=== PATIENT | female | born 1950 | race Caucasian/White ===

== ENCOUNTER 2019-11-13 22:07 | Emergency (ER) | payer MEDICARE, MEDICAID, SELFPAY ==
[2019-11-13 22:14] VITALS: BP 181/95; PULSE 87; RESP 16; TEMP 36.9; O2SAT 96; BMI 28.3
--- NOTE | 2019-11-13 22:30 | CTR_ITS ---
PROCEDURE INFORMATION: Exam: CT Head Without Contrast Exam date and time: 11/13/2019 10:37 PM Age: 69 years old Clinical indication: Pain; Headache not specified; Patient HX: ROSAS x 3 days HX of stroke and avm TECHNIQUE: Imaging protocol: Computed tomography of the head without contrast. Radiation optimization: All CT scans at this facility use at least one of these dose optimization techniques: automated exposure control; mA and/or kV adjustment per patient size (includes targeted exams where dose is matched to clinical indication); or iterative reconstruction. COMPARISON: No relevant prior studies available. RADIATION DOSE METRICS: Total DLP (mGy-cm): 705 FINDINGS: Brain: Mild cortical volume loss of the right cerebral hemisphere. Mild hypodensities in supratentorial periventricular subcortical white matter. Old encephalomalacia with coarse dystrophic parenchymal calcifications involving the left temporal, occipital, and parietal lobes as well as the left basal ganglia. Old encephalomalacia in the left thalamus. No intracranial hemorrhage. Ventricles: Normal. No ventriculomegaly. Bones/joints: Unremarkable. No acute fracture. Sinuses: Visualized sinuses are unremarkable. No fluid levels. Mastoid air cells: Visualized mastoid air cells are well aerated. Vasculature: No hyperdense artery. Soft tissues: Unremarkable. CT/CT head wo con* [id number] IMPRESSION: 1. No acute intracranial abnormality identified. 2. Old encephalomalacia with dense dystrophic calcifications involving the left cerebrum as described. 3. Mild microangiopathy. Radiation Dose CTDIVOL = (mGy): DLP = 705 (mGy-cm)
[2019-11-13 22:55] LABS: Basophils # 0.1 10^3/uL (0.0-0.1); Basophils % 0.6 %; Eosinophils # 0.1 10^3/uL (0.0-0.8); Eosinophils % 1.5 %; Hematocrit 37.8 % (37.0-47.0); Hemoglobin 12.2 g/dL (11.5-15.3); Lymphocytes # 1.2 10^3/uL (0.8-4.8); Lymphocytes % 13.9 %; Mean Corpuscular HGB Conc 32.3 g/dL (30.0-36.0); Mean Corpuscular Hemoglobin 31.3 pg (28.0-34.0); Mean Corpuscular Volume 96.9 fL (81-99); Mean Platelet Volume 9.8 fL (7.4-10.4); Monocytes # 0.5 10^3/uL (0.2-0.9); Monocytes % 5.5 %; Neutrophils # 6.9 10^3/uL (1.8-7.7); Neutrophils % 77.9 %; Nucleated Red Blood Cells % 0 %; Platelet Count 204 10^3/cmm (130-400); Red Cell Distribution Width 13.1 % (12.1-15.1); White Blood Count 8.8 10^3/uL (4.0-10.0)
[2019-11-13] MEDS: dexamethasone 4 mg/mL INJ 8 MG IVP (22:57)
[2019-11-13 22:58] VITALS: RESP 16
[2019-11-13] MEDS: hyDRALAzine 20 mg/mL INJ 1 mL 10 MG IVP (22:58)
[2019-11-13] MEDS: fentaNYL 50 mcg/mL INJ 2mL IVP (22:58)
[2019-11-13] MEDS: ondansetron 2 mg/ML SDV 2 mL 4 MG IVP (22:59)
[2019-11-13] MEDS: ketorolac 30 mg/mL INJ IVP (22:59)
--- NOTE | 2019-11-13 23:00 | ED_ITS ---
HPI - Headache General: Chief Complaint: Headache Stated Complaint: headache Time Seen by Provider: 11/13/19 22:11 History of Present Illness: HPI Narrative: 69-year-old lady presents with a significant headache for the past 3 days. She stays in a long-term related to a stroke she had back in 2016. 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 She states her headache is a global headache. It is waxed and waned over the last 3 days. No definite change in vision, although she notes she has glaucoma. Her blood pressure has been up and down, mainly related to her headache symptoms as well. She has had headaches on and off since her stroke, but not this significant. MD elicited complaint: headache Onset (ago): day(s) Onset description: suddenly Location: other (Global, but more on the left) Quality & Timing: aching and throbbing Exacerbating factors: none Relieving factors: nothing Context: occurred at rest Associated symptoms: Reports fever(s) (She says low-grade temps the last couple of days) and nausea; Deny chest pain, eye pain, photophobia, rash, seizures, sound sensitivity or vomiting Review of Systems Const: Reports: fever(s) (She says low-grade temps the last couple of days) Eyes: Reports: blurry vision; Denies: change in vision ENMT: Denies: swelling of lips/tongue, bleeding gums, dental pain, change in hearing, epistaxis, post nasal drip or sinus pain Card: Denies: chest pain, palpitations or irregular heart rhythm Resp: Denies: dyspnea, productive cough, non-productive cough or wheezing GI: Reports: nausea; Denies: vomiting : Denies: dysuria or hematuria Musc: Denies: neck pain, back pain, joint redness or joint warmth Skin/Breast: Denies: rash, pruritus or erythema Neuro: Reports: headache(s); Denies: dizziness or vertigo Psych: Denies: anxiety PFSH ED PFSH: Social History Smoking and tobacco status: former smoker Physical Exam Const: GENERAL APPEARANCE: well developed ORIENTATION/CONSCIOUSNESS: Yes oriented to person, Yes oriented to place and Yes oriented to time HENMT: COMMON NORMALS: external ears normal and Normal external nose present HEAD & SCALP: other (There is tenderness over the left temporal region, with mild swelling apparent. Pulses are palpable of the temporal arteries ) FACE & SINUS: normal facial exam NOSE: Normal external nose present and No nasal discharge present EXTERNAL EAR: Yes external ears normal MOUTH: tongue normal THROAT: posterior oropharynx normal; no peritonsillar mass Eye: COMMON NORMALS: Equal, round and reactive pupils present and EOMs intact bilaterally EYELID: eyelids normal CONJUNCTIVA: Yes conjunctival abnormal positive left (Mild injection) PUPIL: Yes Equal, round and reactive pupils present DIRECT OPHTHALMOSCOPY: No photophobia Neck/C-Spine: COMMON NORMALS: full ROM GENERAL: No tracheal deviation CERVICAL SPINE: Yes normal cervical lordosis and No Cervical spine tenderness Chest: COMMONS NORMALS: normal inspection of the chest CHEST: No tenderness Resp: COMMON NORMALS: clear to auscultation bilaterally EFFORT & INSPECTION: No tachypneic, No respiratory distress, No retractions, No uses accessory muscles and No tracheal deviation AUSCULTATION: clear to auscultation bilaterally, no rhonchi, no wheezes and lung sounds not diminished Cardio: COMMON NORMALS: regular rate and regular rhythm RATE: regular rate RHYTHM: regular rhythm HEART SOUNDS: no murmurs PERIPHERAL PULSES: radial pulses present GI: INSPECTION: No abdominal distension AUSCULTATION: No Hyperactive bowel sounds present and No Hypoactive bowel sounds present PALPATION: No Guarding due to palpation present (GI) and No Rigid due to palpation PERCUSSION: no dullness to percussion and no tympanic to percussion Neuro: SENSORIUM/ORIENTATION: Yes oriented to person, Yes oriented to place and Yes oriented to time Psych: COMMON NORMALS: mental status grossly normal Skin: COMMON NORMALS: no rashes or lesions noted GENERAL SKIN EXAM: no rashes or lesions noted Course Vital Signs: Vital signs: Vital Signs Temperature 98.4 F 11/13/19 22:14 Pulse Rate 91 11/14/19 02:20 Respiratory Rate 16 11/14/19 02:20 Blood Pressure 177/75 11/14/19 02:20 Pulse Oximetry 92 11/14/19 02:20 MDM - Headache MDM Narrative: Medical decision making narrative: 69-year-old lady with a history of a headache. Headache has not changed in 3 days but was sudden onset. Her head CT is negative, showing only changes related to her old stroke. She is significantly hypertensive here requiring a couple of doses of hydralazine, and 1 dose of metoprolol. She is only on lisinopril in the long-term. Her headache may be related to the hypertension. She was screened for temporal arteritis, but her sed rate and CRP are essentially negative. Her urinalysis is equivocal. Will allow her back to the long-term with resolution of her headache at this point. Lab Data: Labs: Lab Results 11/13/19 11/13/19 11/13/19 Range/Units 22:50 22:50 22:50 WBC 8.8 (4.0-10.0) 10^3/ uL RBC 3.90 L (4.1-5.3) 10^6/u L Hgb 12.2 (11.5-15.3) g/dL Hct 37.8 (37.0-47.0) % MCV 96.9 (81-99) fL MCH 31.3 (28.0-34.0) pg MCHC 32.3 (30.0-36.0) g/dL RDW 13.1 (12.1-15.1) % Plt Count 204 (130-400) 10^3/c mm MPV 9.8 (7.4-10.4) fL Neut % (Auto) 77.9 % Lymph % (Auto) 13.9 % Irwin % (Auto) 5.5 % Eos % (Auto) 1.5 % Baso % (Auto) 0.6 % Neut # (Auto) 6.9 (1.8-7.7) 10^3/u L Lymph # (Auto) 1.2 (0.8-4.8) 10^3/u L Irwin # (Auto) 0.5 (0.2-0.9) 10^3/u L Eos # (Auto) 0.1 (0.0-0.8) 10^3/u L Baso # (Auto) 0.1 (0.0-0.1) 10^3/u L Nucleated RBC % (a uto) 0 % Nucleated RBCs # 0.0 /100WBC ESR 25 H (0-15) mm/hr Sodium 144 (136-145) mmol/L Potassium 4.5 (3.5-5.1) mmol/L Chloride 104 (98-107) mmol/L Carbon Dioxide 27 (22-29) mmol/L Anion Gap 17.5 (5-19) BUN 18 (8-23) mg/dL Creatinine 1.2 H (0.5-0.9) mg/dL GFR Calculation 44.8 L (90-130) mL/min Glucose 163 H (65-115) mg/dL Calculated Osmolal ity 298 H (285-295) mOsm/k g Calcium 9.9 (8.5-10.5) mg/dL Total Bilirubin 0.6 (0.15-1.2) mg/dL AST 19 (0-32) U/L ALT 32 (0-33) U/L Alkaline Phosphata se 80 (35-105) IU/L C-Reactive Protein 5.2 H (0.0-4.9) mg/L Total Protein 7.3 (6.6-8.7) g/dL Albumin 4.4 (3.5-5.2) g/dL Globulin 2.9 (1.3-4.6) g/dL Urine Color (Yellow) Urine Appearance (CLEAR) Urine pH (5-7) Ur Specific Gravit y (1.005-1.030) Urine Protein (Negative) Urine Glucose (UA) (Normal) Urine Ketones (Negative) Urine Blood (Negative) Urine Nitrate (Negative) Urine Bilirubin (NEGATIVE) Urine Urobilinogen (Negative) mg/dL Ur Leukocyte Antoinette ase (Negative) Urine RBC (0-2) /hpf Urine WBC (0-5) /hpf Ur Squamous Epith Cells (0-5) Urine Bacteria (NONE) Urine Mucus 11/12/ Range/Units 23:52 WBC (4.0-10.0) 10^3/ uL RBC (4.1-5.3) 10^6/u L Hgb (11.5-15.3) g/dL Hct (37.0-47.0) % MCV (81-99) fL MCH (28.0-34.0) pg MCHC (30.0-36.0) g/dL RDW (12.1-15.1) % Plt Count (130-400) 10^3/c mm MPV (7.4-10.4) fL Neut % (Auto) % Lymph % (Auto) % Irwin % (Auto) % Eos % (Auto) % Baso % (Auto) % Neut # (Auto) (1.8-7.7) 10^3/u L Lymph # (Auto) (0.8-4.8) 10^3/u L Irwin # (Auto) (0.2-0.9) 10^3/u L Eos # (Auto) (0.0-0.8) 10^3/u L Baso # (Auto) (0.0-0.1) 10^3/u L Nucleated RBC % (a uto) % Nucleated RBCs # /100WBC ESR (0-15) mm/hr Sodium (136-145) mmol/L Potassium (3.5-5.1) mmol/L Chloride (98-107) mmol/L Carbon Dioxide (22-29) mmol/L Anion Gap (5-19) BUN (8-23) mg/dL Creatinine (0.5-0.9) mg/dL GFR Calculation (90-130) mL/min Glucose (65-115) mg/dL Calculated Osmolal ity (285-295) mOsm/k g Calcium (8.5-10.5) mg/dL Total Bilirubin (0.15-1.2) mg/dL AST (0-32) U/L ALT (0-33) U/L Alkaline Phosphata se (35-105) IU/L C-Reactive Protein (0.0-4.9) mg/L Total Protein (6.6-8.7) g/dL Albumin (3.5-5.2) g/dL Globulin (1.3-4.6) g/dL Urine Color Yellow (Yellow) Urine Appearance Sl hazy (CLEAR) Urine pH 5 (5-7) Ur Specific Gravit y 1.020 (1.005-1.030) Urine Protein Neg (Negative) Urine Glucose (UA) Norm (Normal) Urine Ketones Negative (Negative) Urine Blood Neg (Negative) Urine Nitrate Positive H (Negative) Urine Bilirubin Neg (NEGATIVE) Urine Urobilinogen Norm (Negative) mg/dL Ur Leukocyte Antoinette ase Trace H (Negative) Urine RBC 0-4 H (0-2) /hpf Urine WBC 10-15 H (0-5) /hpf Ur Squamous Epith Cells 5-10 H (0-5) Urine Bacteria 3+ H (NONE) Urine Mucus Trace Discharge Plan Discharge Patient Disposition: Xfer [facility] Clinical Impression: Headache Qualifiers: Headache type: unspecified Headache chronicity pattern: acute headache Intractability: intractable Qualified Code(s): R51 - Headache Hypertension Qualifiers: Hypertension type: essential hypertension Qualified Code(s): I10 - Essential (primary) hypertension Condition: Stable Prescriptions: New metoprolol tartrate 25 mg tablet 25 mg PO Q12H Qty: 60 RF: 0 Discharge Orders: Discharge Order (Routine); Ordered 11/14/19 Ordered By: Iker Theodore Referrals: Bernabe Cuellar DO [Primary Care Provider] - 4-7 days Discharge Diet: Usual diet Discharge Activity: Increase activity as tolerated Patient Instructions: Acute Headache (ED), Hypertension (ED) Activity Restrictions/Additional Instructions: Take blood pressure twice daily for the next 5 days. Medication as directed. Hold metoprolol for blood pressure less than 120/70, heart rate less than 60. Report blood pressure numbers to your physician. Return for mental status changes, worsening headache despite treatment, change in vision, other con cerning symptoms. 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
[2019-11-13 23:12] LABS: Alanine Aminotransferase 32 U/L (0-33); Albumin Level 4.4 g/dL (3.5-5.2); Alkaline Phosphatase 80 IU/L (35-105); Anion Gap 17.5 (5-19); Aspartate Amino Transferase 19 U/L (0-32); Blood Urea Nitrogen 18 mg/dL (8-23); C Reactive Protein 5.2 mg/L (0.0-4.9); Calcium 9.9 mg/dL (8.5-10.5); Carbon Dioxide 27 mmol/L (22-29); Chloride 104 mmol/L (98-107); Globulin 2.9 g/dL (1.3-4.6); Glomerular Filtration Rate 44.8 mL/min (90-130); Glucose 163 mg/dL (65-115); Osmolality Calculated 298 mOsm/kg (285-295); Potassium 4.5 mmol/L (3.5-5.1); Sodium 144 mmol/L (136-145); Total Bilirubin 0.6 mg/dL (0.15-1.2); Total Protein 7.3 g/dL (6.6-8.7)
[2019-11-13 23:18] VITALS: BP 156/96; PULSE 98; RESP 16; O2SAT 97
[2019-11-13 23:33] LABS: Erythrocyte Sedimentation Rate 25 mm/hr (0-15)
[2019-11-13 23:54] VITALS: BP 172/76; RESP 16; O2SAT 96
[2019-11-14] VITALS (10 sets, daily range): BP systolic 116–181; BP diastolic 56–85; PULSE 91–106; RESP 14–17; O2SAT 91–96
[2019-11-14 00:24] LABS: Add Urine Microscopic? YES; Bilirubin Urine Neg (NEGATIVE); Blood Urine Neg (Negative); Glucose Urine UA Norm (Normal); Ketones Urine Negative (Negative); Leukocyte Esterase Urine Trace (Negative); Nitrate Urine Positive (Negative); Protein Urine Neg (Negative); Urine Appearance SL Hazy (CLEAR); Urine Color Yellow (Yellow); Urobilinogen Urine Norm (Negative); pH Urine 5 (5-7)
[2019-11-14 00:25] LABS: Bacteria Urine 3+; RBC Urine 0-4 /hpf (0-2)
[2019-11-14 00:26] LABS: Add Urine Culture? Yes; Mucus Urine TRACE
[2019-11-14] MEDS: hyDRALAzine 20 mg/mL INJ 1 mL 10 MG IVP (01:02)
--- NOTE | 2019-11-14 01:27 | PC.NURSE ---
patient helped onto bedpan by nurse assist 2x.
[2019-11-14] MEDS: metoprolol tartrate 1 mg/1 mL SDV 5 mL 5 MG IV (01:42)
[2019-11-14] MEDS: amlodipine 5 mg Tablet 10 MG PO (01:56)
--- NOTE | 2019-11-14 02:19 | PC.NURSE ---
patient reference number for [facility], [place] [id number]
--- NOTE | 2019-11-14 08:02 | PC.NURSE ---
debra called states they will start looking for transportation now and call with ETA
== END 2019-11-14 09:10 | disposition skilled nursing facility (03) ==
PROVIDERS: Emergency Provider Emergency Medicine; PCP Internal Medicine
DX: R51 Headache (principal); I10 Essential (primary) hypertension; Z87.891 Personal history of nicotine dependence
CPT/HCPCS: 12345; 70450; 80053; 81001; 85025; 85651; 86140; 87077; 87086; 87186; 96374; 96375; 96376; 99284; J0360; J1100; J1885; J2405; J3010; J3490

== ENCOUNTER 2019-12-08 16:34 | Observation (INO) | payer MEDICARE, MEDICAID, SELFPAY ==
[2019-12-08] VITALS (8 sets, daily range): BP systolic 146–169; BP diastolic 60–88; PULSE 83–92; RESP 16–25; TEMP 36.8; O2SAT 93–99; BMI 28.3
--- NOTE | 2019-12-08 16:45 | XRR_ITS ---
PROCEDURE INFORMATION: Exam: XR Right Hip with Pelvis when Performed Exam date and time: 12/08/2019 4:46 PM Age: 69 years old Clinical indication: Injury or trauma and condition or disease; Fall; Initial encounter; Blunt trauma (contusions or hematomas); Right; Hip; Other: Fracture; Additional info: Fall and hip FX TECHNIQUE: Imaging protocol: XR Right hip with pelvis when performed. Views: 1 view. COMPARISON: CR Hip 2-3v RIGHT wwo Pelv* [id number] 10/27/2018 8:43 AM FINDINGS: Bones/joints: The bones are intact and in normal alignment. Soft tissues: Unremarkable. Gastrointestinal tract: Gas and stool distended colon. XR/XR hip RT 2-3V wo/w pel* [id number] IMPRESSION: No fracture identified.
--- NOTE | 2019-12-08 17:17 | PC.NURSE ---
EKG done at 1650 and shown to ER doctor
--- NOTE | 2019-12-08 17:34 | CTR_ITS ---
PROCEDURE INFORMATION: Exam: CT Right Lower Extremity Without Contrast, Hip Exam date and time: 12/08/2019 5:47 PM Age: 69 years old Clinical indication: Injury or trauma; Fall; Initial encounter; Blunt trauma; Hip; Right; Additional info: Fall -- FX reported TECHNIQUE: Imaging protocol: CT of the Right lower extremity without contrast was performed. Exam focused on the hip. Radiation optimization: All CT scans at this facility use at least one of these dose optimization techniques: automated exposure control; mA and/or kV adjustment per patient size (includes targeted exams where dose is matched to clinical indication); or iterative reconstruction. COMPARISON: CR XR hip RT 2-3V wo/w pel* [id number] 12/08/2019 5:00 PM RADIATION DOSE METRICS: Total DLP (mGy-cm): 1649.79 FINDINGS: Bones/joints: Small right hip effusion. The bones are intact and in normal alignment. No fracture identified. Soft tissues: Normal. CT/CT hip RT wo con* [id number] IMPRESSION: 1. No fracture identified. 2. Small right hip effusion. Radiation Dose CTDIVOL = (mGy): DLP = 1649.79 (mGy-cm)
--- NOTE | 2019-12-08 17:43 | ED_ITS ---
Documented by User: Jamaal Verduzco DO 12/08/19 17:44 HPI - Extremity Problem General: Chief complaint: Extremity Injury, Lower Stated complaint: HIP FRACTURE Time Seen by Provider: 12/08/19 16:36 History of Present Illness: HPI Narrative: Patient reportedly fell at the [place]. She has had pain in the right hip since that time. Patient uses a walker to ambulate and is now having difficulty even with the wal ker. MD Complaint: joint pain Onset (ago): day(s) Pain Consistency: constant Location: right Radiation: none Relieving factors: nothing Exacerbating factors: range of motion, weight bearing, walking and palpation Review of Systems General: Reports: 10 or more systems reviewed and unremarkable except in HPI and below PFSH ED PFSH: Social History Smoking and tobacco status: former smoker Physical Exam Const: COMMON NORMALS: no acute distress and alert HENMT: COMMON NORMALS: normocephalic, atraumatic, external ears normal and Normal external nose present HEAD & SCALP: normocephalic and atraumatic FACE & SINUS: normal facial exam NOSE: Normal external nose present EXTERNAL EAR: Yes external ears normal MOUTH: Normal oral and palatal mucosa present Neck/C-Spine: COMMON NORMALS: full ROM, no lymphadenopathy, supple, no meningeal signs and no JVD GENERAL: Yes normal visual inspection Resp: COMMON NORMALS: normal respiratory effort, No retractions, No use of accessory muscles and clear to auscultation bilaterally AUSCULTATION: clear to auscultation bilaterally Cardio: COMMON NORMALS: no JVD, regular rate and regular rhythm RATE: regular rate RHYTHM: regular rhythm GI: COMMON NORMALS: Normal to inspection, nondistended, normoactive bowel sounds present, Soft to palpation, non-tender, No hepatosplenomegaly present and no masses INSPECTION: Yes normal to inspection AUSCULTATION: Yes normoactive bowel sounds PALPATION: Yes Soft to palpation and Yes No hepat osplenomegaly present PERCUSSION: normal to percussion : COMMON NORMALS: Yes no CVA tenderness and Yes normal external appearance BLADDER/KIDNEY EXAM: Yes no CVA tenderness Back/Pelvis: COMMON NORMALS: no CVA tenderness, thoracic and lumbar spine normal to inspection, no thoracic nor lumbar tenderness, thoraco-lumbar ROM normal and straight leg raise negative bilaterally Extremity: COMMON NORMALS: normal to inspection, full ROM, capillary refill normal, no joint enlargement, no clubbing, cyanosis or edema, no calf tenderness and no pedal edema Neuro: COMMON NORMALS: moves all extremities, no focal motor deficits and no sensory deficits noted SENSORIUM/ORIENTATION: Yes alert MENINGEAL SIGNS: Yes no meningeal signs Psych: COMMON NORMALS: mental status grossly normal, Normal thought process present, cooperative, normal affect and speech normal SPEECH: Yes normal speech THOUGHT PROCESS: Normal thought process present Skin: COMMON NORMALS: no rashes or lesions noted, no wounds, turgor normal, no jaundice, no petechiae and no mottling GENERAL SKIN EXAM: no rashes or lesions noted and turgor normal Course Vital Signs: Vital signs: Vital Signs Temperature 98.4 F 12/09/19 00:29 Pulse Rate 89 12/09/19 01:49 Respiratory Rate 18 12/09/19 01:49 Blood Pressure 132/68 12/09/19 01:49 Pulse Oximetry 97 12/09/19 01:49 MDM - Extremity (Nontraumatic) Lab Data: Labs: Lab Results 12/08/19 12/08/19 12/08/19 Range/Units 19:13 19:51 19:51 WBC 10.3 H (4.0-10.0) 10^3/ uL RBC 4.17 (4.1-5.3) 10^6/u L Hgb 12.6 (11.5-15.3) g/dL Hct 40.4 (37.0-47.0) % MCV 96.9 (81-99) fL MCH 30.2 (28.0-34.0) pg MCHC 31.2 (30.0-36.0) g/dL RDW 13.2 (12.1-15.1) % Plt Count 248 (130-400) 10^3/c mm MPV 9.9 (7.4-10.4) fL Neut % (Auto) 67.4 % Lymph % (Auto) 21.4 % [place] % (Auto) 7.8 % Eos % (Auto) 2.5 % Baso % (Auto) 0.6 % Neut # (Auto) 6.94 (1.8-7.7) 10^3/u L Lymph # (Auto) 2.2 (0.8-4.8) 10^3/u L [place] # (Auto) 0.8 (0.2-0.9) 10^3/u L Eos # (Auto) 0.3 (0.0-0.8) 10^3/u L Baso # (Auto) 0.1 (0.0-0.1) 10^3/u L Nucleated RBC % (a uto) 0 % Nucleated RBCs # 0.0 /100WBC Sodium 142 (136-145) mmol/L Potassium 4.6 (3.5-5.1) mmol/L Chloride 107 (98-107) mmol/L Carbon Dioxide 23 (22-29) mmol/L Anion Gap 16.6 (5-19) BUN 38 H (8-23) mg/dL Creatinine 1.3 H (0.5-0.9) mg/dL GFR Calculation 40.9 L (90-130) mL/min Glucose 107 (65-115) mg/dL Calculated Osmolal ity 292 (285-295) mOsm/k g Lactic Acid (0.5-2.2) mmol/L Calcium 9.8 (8.5-10.5) mg/dL Total Bilirubin 0.7 (0.15-1.2) mg/dL AST 15 (0-32) U/L ALT 22 (0-33) U/L Alkaline Phosphata se 80 (35-105) IU/L Troponin T Baselin e (0-10) ng/L Troponin T 120 Min [place] (0-10) ng/L Delta Troponin T (0-10) ABS# Total Protein 7.4 (6.6-8.7) g/dL Albumin 4.9 (3.5-5.2) g/dL Globulin 2.5 (1.3-4.6) g/dL Urine Color Yellow (Yellow) Urine Appearance Hazy A (CLEAR) Urine pH 5 (5-7) Ur Specific Gravit y 1.015 (1.005-1.030) Urine Protein Neg (Negative) Urine Glucose (UA) Norm (Normal) Urine Ketones Negative (Negative) Urine Blood 3+ H (Negative) Urine Nitrate Negative (Negative) Urine Bilirubin Neg (NEGATIVE) Urine Urobilinogen 1 H (Negative) mg/dL Ur Leukocyte Antoinette ase Negative (Negative) Urine RBC 5-10 H (0-2) /hpf Urine WBC 5-10 H (0-5) /hpf Ur Squamous Epith Cells 0-4 H (0-5) Amorphous Sediment Not Reportable Urine Bacteria 3+ H (NONE) Urine Mucus 1+ 12/08/19 12/08/19 12/08/19 Range/Units 19:51 22:00 22:10 WBC (4.0-10.0) 10^3/ uL RBC (4.1-5.3) 10^6/u L Hgb (11.5-15.3) g/dL Hct (37.0-47.0) % MCV (81-99) fL MCH (28.0-34.0) pg MCHC (30.0-36.0) g/dL RDW (12.1-15.1) % Plt Count (130-400) 10^3/c mm MPV (7.4-10.4) fL Neut % (Auto) % Lymph % (Auto) % [place] % (Auto) % Eos % (Auto) % Baso % (Auto) % Neut # (Auto) (1.8-7.7) 10^3/u L Lymph # (Auto) (0.8-4.8) 10^3/u L [place] # (Auto) (0.2-0.9) 10^3/u L Eos # (Auto) (0.0-0.8) 10^3/u L Baso # (Auto) (0.0-0.1) 10^3/u L Nucleated RBC % (a uto) % Nucleated RBCs # /100WBC Sodium (136-145) mmol/L Potassium (3.5-5.1) mmol/L Chloride (98-107) mmol/L Carbon Dioxide (22-29) mmol/L Anion Gap (5-19) BUN (8-23) mg/dL Creatinine (0.5-0.9) mg/dL GFR Calculation (90-130) mL/min Glucose (65-115) mg/dL Calculated Osmolal ity (285-295) mOsm/k g Lactic Acid 0.8 (0.5-2.2) mmol/L Calcium (8.5-10.5) mg/dL Total Bilirubin (0.15-1.2) mg/dL AST (0-32) U/L ALT (0-33) U/L Alkaline Phosphata se (35-105) IU/L Troponin T Baselin e 11 H (0-10) ng/L Troponin T 120 Min [place] 11.01 H (0-10) ng/L Delta Troponin T 0.01 (0-10) ABS# Total Protein (6.6-8.7) g/dL Albumin (3.5-5.2) g/dL Globulin (1.3-4.6) g/dL Urine Color (Yellow) Urine Appearance (CLEAR) Urine pH (5-7) Ur Specific Gravit y (1.005-1.030) Urine Protein (Negative) Urine Glucose (UA) (Normal) Urine Ketones (Negative) Urine Blood (Negative) Urine Nitrate (Negative) Urine Bilirubin (NEGATIVE) Urine Urobilinogen (Negative) mg/dL Ur Leukocyte Antoinette ase (Negative) Urine RBC (0-2) /hpf Urine WBC (0-5) /hpf Ur Squamous Epith Cells (0-5) Amorphous Sediment Urine Bacteria (NONE) Urine Mucus Discharge Plan Discharge Patient Disposition: Admitted As Inpatient Admit Provider: Willie Ladd Clinical Impression: Acute pyelonephritis, Acute pain of right hip CVA (cerebral vascular accident) Qualifiers: CVA mechanism: unspecified Qualified Code(s): I63.9 - Cerebral infarction, unspecified Condition: Stable Referrals: Bernabe Cuellar DO [Primary Care Provider] - Discharge Date/Time: 12/09/19 00:34 Sign Out Sign Out Data: Patient Sign Out occurred on 12/08/19 at 18:14. Patient's care was discussed, and care was transferred from to Lizeth Stoll. Coding Level of Care Code ED Supervisor Histology for Chg Fwd Exam Comprehensive Documented by User: Lizeth Stoll 12/09/19 01:52 HPI - Extremity Problem General: Chief complaint: Extremity Injury, Lower Stated complaint: HIP FRACTURE Time Seen by Provider: 12/08/19 16:36 [facility] ED PFSH: Social History Smoking and tobacco status: former smoker Course Vital Signs: Vital signs: Vital Signs Temperature 98.4 F 12/09/19 00:29 Pulse Rate 89 12/09/19 01:49 Respiratory Rate 18 12/09/19 01:49 Blood Pressure 132/68 12/09/19 01:49 Pulse Oximetry 97 12/09/19 01:49 MDM - Extremity (Nontraumatic) MDM Narrative: Medical decision making narrative: Patient turned over to me from Dr. Feliciano is a follow-up of the CT of the hip. The patient has family available now who are assisting the patient has had slurred speech and difficulty with cognition over the past several days along with left flank pain. At their insistence I performed a head CT and abdominal CT. There is a subacute stroke seen on the head CT and a questionable pyelonephritis. There is also effusion of the right hip. I have reviewed all this with Dr. Mckeon who is agreeable to admission. He agreed to broaden antibiotic coverage to cover for sepsis and once orthopedics consulted. I consulted orthopedics and they would like an MRI of the hip done the next day. Patient is stable, she is in no pain ultrasound of the right lower extremity is pending at this time as the patient does have some cellulitis and some swelling of that leg. Lab Data: Attestation: I reviewed the patient's lab results. Labs: Lab Results 12/08/19 12/08/19 12/08/19 Range/Units 19:13 19:51 19:51 WBC 10.3 H (4.0-10.0) 10^3/ uL RBC 4.17 (4.1-5.3) 10^6/u L Hgb 12.6 (11.5-15.3) g/dL Hct 40.4 (37.0-47.0) % MCV 96.9 (81-99) fL MCH 30.2 (28.0-34.0) pg MCHC 31.2 (30.0-36.0) g/dL RDW 13.2 (12.1-15.1) % Plt Count 248 (130-400) 10^3/c mm MPV 9.9 (7.4-10.4) fL Neut % (Auto) 67.4 % Lymph % (Auto) 21.4 % [place] % (Auto) 7.8 % Eos % (Auto) 2.5 % Baso % (Auto) 0.6 % Neut # (Auto) 6.94 (1.8-7.7) 10^3/u L Lymph # (Auto) 2.2 (0.8-4.8) 10^3/u L [place] # (Auto) 0.8 (0.2-0.9) 10^3/u L Eos # (Auto) 0.3 (0.0-0.8) 10^3/u L Baso # (Auto) 0.1 (0.0-0.1) 10^3/u L Nucleated RBC % (a uto) 0 % Nucleated RBCs # 0.0 /100WBC Sodium 142 (136-145) mmol/L Potassium 4.6 (3.5-5.1) mmol/L Chloride 107 (98-107) mmol/L Carbon Dioxide 23 (22-29) mmol/L Anion Gap 16.6 (5-19) BUN 38 H (8-23) mg/dL Creatinine 1.3 H (0.5-0.9) mg/dL GFR Calculation 40.9 L (90-130) mL/min Glucose 107 (65-115) mg/dL Calculated Osmolal ity 292 (285-295) mOsm/k g Lactic Acid (0.5-2.2) mmol/L Calcium 9.8 (8.5-10.5) mg/dL Total Bilirubin 0.7 (0.15-1.2) mg/dL AST 15 (0-32) U/L ALT 22 (0-33) U/L Alkaline Phosphata se 80 (35-105) IU/L Troponin T Baselin e (0-10) ng/L Troponin T 120 Min [place] (0-10) ng/L Delta Troponin T (0-10) ABS# Total Protein 7.4 (6.6-8.7) g/dL Albumin 4.9 (3.5-5.2) g/dL Globulin 2.5 (1.3-4.6) g/dL Urine Color Yellow (Yellow) Urine Appearance Hazy A (CLEAR) Urine pH 5 (5-7) Ur Specific Gravit y 1.015 (1.005-1.030) Urine Protein Neg (Negative) Urine Glucose (UA) Norm (Normal) Urine Ketones Negative (Negative) Urine Blood 3+ H (Negative) Urine Nitrate Negative (Negative) Urine Bilirubin Neg (NEGATIVE) Urine Urobilinogen 1 H (Negative) mg/dL Ur Leukocyte Antoinette ase Negative (Negative) Urine RBC 5-10 H (0-2) /hpf Urine WBC 5-10 H (0-5) /hpf Ur Squamous Epith Cells 0-4 H (0-5) Amorphous Sediment Not Reportable Urine Bacteria 3+ H (NONE) Urine Mucus 1+ 12/08/19 12/08/19 12/08/19 Range/Units 19:51 22:00 22:10 WBC (4.0-10.0) 10^3/ uL RBC (4.1-5.3) 10^6/u L Hgb (11.5-15.3) g/dL Hct (37.0-47.0) % MCV (81-99) fL MCH (28.0-34.0) pg MCHC (30.0-36.0) g/dL RDW (12.1-15.1) % Plt Count (130-400) 10^3/c mm MPV (7.4-10.4) fL Neut % (Auto) % Lymph % (Auto) % [place] % (Auto) % Eos % (Auto) % Baso % (Auto) % Neut # (Auto) (1.8-7.7) 10^3/u L Lymph # (Auto) (0.8-4.8) 10^3/u L [place] # (Auto) (0.2-0.9) 10^3/u L Eos # (Auto) (0.0-0.8) 10^3/u L Baso # (Auto) (0.0-0.1) 10^3/u L Nucleated RBC % (a uto) % Nucleated RBCs # /100WBC Sodium (136-145) mmol/L Potassium (3.5-5.1) mmol/L Chloride (98-107) mmol/L Carbon Dioxide (22-29) mmol/L Anion Gap (5-19) BUN (8-23) mg/dL Creatinine (0.5-0.9) mg/dL GFR Calculation (90-130) mL/min Glucose (65-115) mg/dL Calculated Osmolal ity (285-295) mOsm/k g Lactic Acid 0.8 (0.5-2.2) mmol/L Calcium (8.5-10.5) mg/dL Total Bilirubin (0.15-1.2) mg/dL AST (0-32) U/L ALT (0-33) U/L Alkaline Phosphata se (35-105) IU/L Troponin T Baselin e 11 H (0-10) ng/L Troponin T 120 Min [place] 11.01 H (0-10) ng/L Delta Troponin T 0.01 (0-10) ABS# Total Protein (6.6-8.7) g/dL Albumin (3.5-5.2) g/dL Globulin (1.3-4.6) g/dL Urine Color (Yellow) Urine Appearance (CLEAR) Urine pH (5-7) Ur Specific Gravit y (1.005-1.030) Urine Protein (Negative) Urine Glucose (UA) (Normal) Urine Ketones (Negative) Urine Blood (Negative) Urine Nitrate (Negative) Urine Bilirubin (NEGATIVE) Urine Urobilinogen (Negative) mg/dL Ur Leukocyte Antoinette ase (Negative) Urine RBC (0-2) /hpf Urine WBC (0-5) /hpf Ur Squamous Epith Cells (0-5) Amorphous Sediment Urine Bacteria (NONE) Urine Mucus Imaging Data^: CT Head: Radiologist's impression: [place] [address] CT Scan Report Signed Patient: Alicia Verduzco Unit #: [id number] : 06/28/1991 [id number] Age/Sex: 28 / M ADM Date: 12/08/19 Loc: ER Room/Bed: Attending Dr: Ordering Provider/Ordering MD: Lizeth Stoll DO Date of Service: 12/08/19 Procedure(s): CT head wo con* [id number] Accession Number(s): [id number] Report Number: [id number] PROCEDURE INFORMATION: Exam: CT Head Without Contrast Exam date and time: 12/08/2019 7:05 PM Age: 28 years old Clinical indication: Pain; Headache; Additional info: Intractable headache TECHNIQUE: Imaging protocol: Computed tomography of the head without contrast. Radiation optimization: All CT scans at this facility use at least one of these dose optimization techniques: automated exposure control; mA and/or kV adjustment per patient size (includes targeted exams where dose is matched to clinical indication); or iterative reconstruction. COMPARISON: CT head wo con* [id number] 12/21/2015 10:02 AM RADIATION DOSE METRICS: Total DLP (mGy-cm): 807.31 FINDINGS: Brain: No visible evidence of active or acute intracranial pathologic process, trauma, or hemorrhage. Normal foster-white differentiation. No visible evidence of focal or generalized edema or demyelination. Ventricles: Normal. No ventriculomegaly. Bones/joints: Unremarkable. No acute fracture. Sinuses: Visualized sinuses are unremarkable. No fluid levels. Mastoid air cells: Visualized mastoid air cells are well aerated. Soft tissues: Small 1 cm subcutaneous nodule left occiput soft tissues potential small soft tissue fibroma or complex sebaceous cyst. CT/CT head wo con* [id number] IMPRESSION: No visible evidence of active or acute intracranial pathologic process. Radiation Dose CTDIVOL = (mGy): DLP = 807.31 (mGy-cm) Dictated By: Chase Barrios Signed By: Chase Barrios Signed Date/Time: 12/08/191932 DD/ 31 CT Abd/Pel: Radiologist's impression: [address] [address] [address] Scan Report Signed Patient: Lee Ann Leahy Unit #: [id number] : 1950 Age/Sex: 69 / F ADM Date: 12/08/19 Loc: ER Room/Bed: Attending Dr: Ordering Provider/Ordering MD: Lizeth Stoll DO Date of Service: 12/08/19 Procedure(s): CT abdomen pelvis w con* [id number] Accession Number(s): [id number] Report Number: [id number] PROCEDURE INFORMATION: Exam: CT Abdomen And Pelvis With Contrast Exam date and time: 12/08/2019 8:38 PM Age: 69 years old Clinical indication: Abdominal pain TECHNIQUE: Imaging protocol: Computed tomography of the abdomen and pelvis with intravenous contrast. Radiation optimization: All CT scans at this facility use at least one of these dose optimization techniques: automated exposure control; mA and/or kV adjustment per patient size (includes targeted exams where dose is matched to clinical indication); or iterative reconstruction. Contrast material: VISI 320; Contrast volume: 95 ml; Contrast route: INTRAVENOUS (IV); COMPARISON: CR XR hip RT 2-3V wo/w pel* [id number] 12/08/2019 5:00 PM RADIATION DOSE METRICS: Total DLP (mGy-cm): 710.09 FINDINGS: Lungs: Mild atelectasis. Liver: Normal. No mass. Gallbladder and bile ducts: Normal. No calcified stones. No ductal dilation. Pancreas: Normal. No ductal dilation. Spleen: Normal. No splenomegaly. Adrenals: Normal. No mass. Kidneys and ureters: Subtle parenchymal inhomogeneity in the left kidney. Trace left hydronephrosis. No calculus. Subcentimeter circumscribed hypodensities in both kidneys are most likely cysts but too small to characterize. No follow-up imaging is recommended. Stomach and bowel: Moderate stool in the proximal colon. Gaseous distention of the transverse and descending colon. The small bowel and stomach are unremarkable. Appendix: The appendix is not visualized. Intraperitoneal space: Unremarkable. No free air. No significant fluid collection. Vasculature: Unremarkable. No abdominal aortic aneurysm. Lymph nodes: Unremarkable. No enlarged lymph nodes. Bladder: Unremarkable as visualized. Reproductive: Unremarkable as visualized. Bones/joints: Multiple lower thoracic compression fractures, most likely chronic. Soft tissues: Unremarkable. Other findings: Leftward thoracolumbar curvature. CT/CT abdomen pelvis w con* [id number] IMPRESSION: 1. Subtle inhomogeneity of the left kidney and trace left hydronephrosis. This is suspicious for pyelonephritis. Clinical correlation is recommended. 2. Gaseous ileus of the transverse and descending colon. Radiation Dose CTDIVOL = (mGy): DLP = 710.09 (mGy-cm) Dictated By: Mark Sullivan Signed By: Mark Sullivan Signed Date/Time: 12/08/192134 DD/ [address]: Radiologist's impression: [address] [place] [address] CT Scan Report Signed Patient: Lee Ann Leahy Unit #: [id number] : 1950 Age/Sex: 69 / F ADM Date: 12/08/19 Loc: ER Room/Bed: Attending Dr: Ordering Provider/Ordering MD: Jamaal Verduzco DO Date of Service: 12/08/19 Procedure(s): CT hip RT wo con* [id number] Accession Number(s): [id number] Report Number: [id number] PROCEDURE INFORMATION: Exam: CT Right Lower Extremity Without Contrast, Hip Exam date and time: 12/08/2019 5:47 PM Age: 69 years old Clinical indication: Injury or trauma; Fall; Initial encounter; Blunt trauma; Hip; Right; Additional info: Fall -- FX reported TECHNIQUE: Imaging protocol: CT of the Right lower extremity without contrast was performed. Exam focused on the hip. Radiation optimization: All CT scans at this facility use at least one of these dose optimization techniques: automated exposure control; mA and/or kV adjustment per patient size (includes targeted exams where dose is matched to clinical indication); or iterative reconstruction. COMPARISON: CR XR hip RT 2-3V wo/w pel* [id number] 12/08/2019 5:00 PM RADIATION DOSE METRICS: Total DLP (mGy-cm): 1649.79 FINDINGS: Bones/joints: Small right hip effusion. The bones are intact and in normal alignment. No fracture identified. Soft tissues: Normal. CT/CT hip RT wo con* [id number] IMPRESSION: 1. No fracture identified. 2. Small right hip effusion. Radiation Dose CTDIVOL = (mGy): DLP = 1649.79 (mGy-cm) Dictated By: Mark Sullivan Signed By: Mark Sullivan Signed Date/Time: 12/08/192139 DD/ 37 Ultrasound venous Doppler right lower extremity: My impression: Tech interpretation -no evidence of DVT. Discharge Plan Discharge Patient Disposition: Admitted As Inpatient Admit Provider: Willie Ladd Clinical Impression: Acute pyelonephritis, Acute pain of right hip CVA (cerebral vascular accident) Qualifiers: CVA mechanism: unspecified Qualified Code(s): I63.9 - Cerebral infarction, unspecified Condition: Stable Referrals: Bernabe Cuellar DO [Primary Care Provider] - Discharge Date/Time: 12/09/19 00:34 Sign Out Sign Out Data: Patient Sign Out occurred on 12/08/19 at 18:14. Patient's care was discussed, and care was transferred from to [facility]. Coding Level of Care Code ED Supervisor Histology for Chg Fwd Exam Comprehensive
--- NOTE | 2019-12-08 17:47 | ECG_ITS ---
[facility] Test Date: 2019-12-08 Pat Name: Lee Ann Leahy Department: Room: Gender: Female Safety Associate: : 1950 Requested By: Jamaal Sheets Order Number: [id number] Carlton MD: Iram Power M.D. Measurements Intervals [place] Rate: 85 P: 43 LA: 136 QRS: 48 QRSD: 73 T: 56 QT: 358 QTc: 427 Interpretive Statements SINUS RHYTHM Compared to ECG 09/17/2014 07:40:50 No significant changes Electronically Signed On 12-09-2019 1:22:22 CDT by Iram Power M.D. [email or web address]
[2019-12-08 19:31] LABS: Add Urine Microscopic? YES; Bilirubin Urine Neg (NEGATIVE); Blood Urine 3+ (Negative); Glucose Urine UA Norm (Normal); Ketones Urine Negative (Negative); Leukocyte Esterase Urine Negative (Negative); Nitrate Urine Negative (Negative); Protein Urine Neg (Negative); Specific Gravity, Urine 1.015 (1.005-1.030); Urine Appearance Hazy (CLEAR); Urine Color Yellow (Yellow); Urobilinogen Urine 1 mg/dL (Negative); pH Urine 5 (5-7)
--- NOTE | 2019-12-08 19:32 | CTR_ITS ---
PROCEDURE INFORMATION: Exam: CT Head Without Contrast Exam date and time: 12/08/2019 8:38 PM Age: 69 years old Clinical indication: Altered mental status/memory loss; Additional info: Headaches TECHNIQUE: Imaging protocol: Computed tomography of the head without contrast. Radiation optimization: All CT scans at this facility use at least one of these dose optimization techniques: automated exposure control; mA and/or kV adjustment per patient size (includes targeted exams where dose is matched to clinical indication); or iterative reconstruction. COMPARISON: CT head wo con* [id number] 11/13/2019 11:01 PM RADIATION DOSE METRICS: Total DLP (mGy-cm): 738.47 FINDINGS: Brain: Mild cortical volume loss. Mild hypodensities in supratentorial periventricular and subcortical white matter. Stable encephalomalacia with dystrophic calcifications involving the left temporal, occipital, parietal, and insular regions. A new 5.8 cm region of hypodensity has developed in the posterior left parietal lobe involving the cortex and underlying white matter. No intracranial hemorrhage. Ventricles: Normal. No ventriculomegaly. Bones/joints: Unremarkable. No acute fracture. Sinuses: Visualized sinuses are unremarkable. No fluid levels. Mastoid air cells: Visualized mastoid air cells are well aerated. Soft tissues: Unremarkable. CT/CT head wo con* [id number] IMPRESSION: 1. 5.8 cm subacute nonhemorrhagic infarct in the left parietal lobe, new since the prior CT. 2. Stable left hemispheric encephalomalacia with dystrophic calcifications. 3. Mild microangiopathy. Radiation Dose CTDIVOL = (mGy): DLP = 738.47 (mGy-cm)
--- NOTE | 2019-12-08 19:32 | CTR_ITS ---
PROCEDURE INFORMATION: Exam: CT Abdomen And Pelvis With Contrast Exam date and time: 12/08/2019 8:38 PM Age: 69 years old Clinical indication: Abdominal pain TECHNIQUE: Imaging protocol: Computed tomography of the abdomen and pelvis with intravenous contrast. Radiation optimization: All CT scans at this facility use at least one of these dose optimization techniques: automated exposure control; mA and/or kV adjustment per patient size (includes targeted exams where dose is matched to clinical indication); or iterative reconstruction. Contrast material: VISI 320; Contrast volume: 95 ml; Contrast route: INTRAVENOUS (IV); COMPARISON: CR XR hip RT 2-3V wo/w pel* [id number] 12/08/2019 5:00 PM RADIATION DOSE METRICS: Total DLP (mGy-cm): 710.09 FINDINGS: Lungs: Mild atelectasis. Liver: Normal. No mass. Gallbladder and bile ducts: Normal. No calcified stones. No ductal dilation. Pancreas: Normal. No ductal dilation. Spleen: Normal. No splenomegaly. Adrenals: Normal. No mass. Kidneys and ureters: Subtle parenchymal inhomogeneity in the left kidney. Trace left hydronephrosis. No calculus. Subcentimeter circumscribed hypodensities in both kidneys are most likely cysts but too small to characterize. No follow-up imaging is recommended. Stomach and bowel: Moderate stool in the proximal colon. Gaseous distention of the transverse and descending colon. The small bowel and stomach are unremarkable. Appendix: The appendix is not visualized. Intraperitoneal space: Unremarkable. No free air. No significant fluid collection. Vasculature: Unremarkable. No abdominal aortic aneurysm. Lymph nodes: Unremarkable. No enlarged lymph nodes. Bladder: Unremarkable as visualized. Reproductive: Unremarkable as visualized. Bones/joints: Multiple lower thoracic compression fractures, most likely chronic. Soft tissues: Unremarkable. Other findings: Leftward thoracolumbar curvature. CT/CT abdomen pelvis w con* [id number] IMPRESSION: 1. Subtle inhomogeneity of the left kidney and trace left hydronephrosis. This is suspicious for pyelonephritis. Clinical correlation is recommended. 2. Gaseous ileus of the transverse and descending colon. Radiation Dose CTDIVOL = (mGy): DLP = 710.09 (mGy-cm)
[2019-12-08 19:37] LABS: Bacteria Urine 3+; Squamous Epithelial Cell Urine 0-4 (0-5)
[2019-12-08 19:38] LABS: Add Urine Culture? Yes; Mucus Urine 1+
[2019-12-08 19:56] LABS: Basophils # 0.1 10^3/uL (0.0-0.1); Basophils % 0.6 %; Eosinophils # 0.3 10^3/uL (0.0-0.8); Eosinophils % 2.5 %; Hematocrit 40.4 % (37.0-47.0); Hemoglobin 12.6 g/dL (11.5-15.3); Lymphocytes # 2.2 10^3/uL (0.8-4.8); Lymphocytes % 21.4 %; Mean Corpuscular HGB Conc 31.2 g/dL (30.0-36.0); Mean Corpuscular Hemoglobin 30.2 pg (28.0-34.0); Mean Corpuscular Volume 96.9 fL (81-99); Mean Platelet Volume 9.9 fL (7.4-10.4); Monocytes # 0.8 10^3/uL (0.2-0.9); Monocytes % 7.8 %; Neutrophils # 6.94 10^3/uL (1.8-7.7); Neutrophils % 67.4 %; Nucleated Red Blood Cells % 0 %; Platelet Count 248 10^3/cmm (130-400); Red Blood Count 4.17 10^6/uL (4.1-5.3); Red Cell Distribution Width 13.2 % (12.1-15.1); White Blood Count 10.3 10^3/uL (4.0-10.0)
[2019-12-08] MEDS: morphine 4 mg/mL SDV 1 mL IVP (20:07)
[2019-12-08] MEDS: ondansetron 2 mg/ML SDV 2 mL 4 MG IVP (20:08)
[2019-12-08 20:12] LABS: Alanine Aminotransferase 22 U/L (0-33); Albumin Level 4.9 g/dL (3.5-5.2); Alkaline Phosphatase 80 IU/L (35-105); Anion Gap 16.6 (5-19); Aspartate Amino Transferase 15 U/L (0-32); Blood Urea Nitrogen 38 mg/dL (8-23); Calcium 9.8 mg/dL (8.5-10.5); Carbon Dioxide 23 mmol/L (22-29); Chloride 107 mmol/L (98-107); Globulin 2.5 g/dL (1.3-4.6); Glomerular Filtration Rate 40.9 mL/min (90-130); Glucose 107 mg/dL (65-115); Osmolality Calculated 292 mOsm/kg (285-295); Potassium 4.6 mmol/L (3.5-5.1); Sodium 142 mmol/L (136-145); Total Bilirubin 0.7 mg/dL (0.15-1.2); Total Protein 7.4 g/dL (6.6-8.7)
[2019-12-08] MEDS: iodixanol 320 mg/mL 100mL Btl IV (21:13)
--- NOTE | 2019-12-08 22:11 | ECG_ITS ---
[facility] Test Date: 2019-12-08 Pat Name: Lee Ann Leahy Department: Room: Gender: Female Bonus Clerk: : 1950 Requested By: Lizeth Meredith Order Number: [id number] Vincent MD: Iram Power M.D. Measurements Intervals [place] Rate: 90 P: 50 MI: 147 QRS: 24 QRSD: 89 T: 40 QT: 370 QTc: 455 Interpretive Statements SINUS RHYTHM Compared to ECG 12/08/2019 16:50:06 No significant changes Electronically Signed On 12-09-2019 1:23:37 CDT by Iram Power M.D. [id number]
[2019-12-08] MEDS: cefTRIAXone 1,000 MG in sodium chloride 0.9% (plus) 50 ML 100 MG IV (22:21)
[2019-12-08 22:25] LABS: Lactic Sepsis W/Reflex 0.8 mmol/L (0.5-2.2)
[2019-12-08 22:38] LABS: Troponin(5th) Baseline 11 ng/L (0-10)
--- NOTE | 2019-12-08 22:41 | USCV_ITS ---
Lee Ann Leahy Age: 69 Gender: F : 1950 Exam Date: 12/08/2019 23:13 Ordering Phys: Lizeth Stoll DO Technologist: Facundo Lloyd [place] [facility] [place] Indication: RT LEG PAIN AND EDEMA HISTORY: Lower extremity edema. PROCEDURES: Venous duplex imaging was performed in only the right lower extremity. The following venous structures were evaluated: common femoral vein, profunda vein, proximal portion of the greater saphenous vein, superficial femoral vein, and the popliteal vein. In addition, the posterior tibial and peroneal trunk were evaluated. FINDINGS: Normal 2-D Doppler and augmentation and compressibility throughout the lower extremity venous structures. Additional imaging through the proximal calf veins also reveals no thrombus. Limited evaluation of the greater saphenous vein is patent with no thrombus.. CONCLUSIONS No evidence of right lower extremity DVT. Garrett Holden MD (Electronically Signed) Final Date: 09 December 2019 09:54 S
[2019-12-08 23:20] LABS: Troponin 5 2HR 11.01 ng/L (0-10); Troponin 5 2HR Delta 0.01 ABS# (0-10)
[2019-12-09] VITALS (10 sets, daily range): BP systolic 120–158; BP diastolic 62–72; PULSE 80–100; RESP 18; TEMP 36.6–37.1; O2SAT 93–97
--- NOTE | 2019-12-09 00:11 | ECG_ITS ---
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 Measurements Intervals [place] Rate: 89 P: 59 MT: 152 QRS: 61 QRSD: 89 T: 54 QT: 296 QTc: 361 Interpretive Statements SINUS RHYTHM POSSIBLE RIGHT VENTRICULAR CONDUCTION DELAY [RSR (QR) IN V1/V2] NONSPECIFIC T-WAVE ABNORMALITY Compared to ECG 12/08/2019 22:27:26 T-wave abnormality now present Electronically Signed On 12-09-2019 23:44:51 CDT by Iram Power M.D. [email or web address]/store/[id number]
--- NOTE | 2019-12-09 00:33 | PC.NURSE ---
Pt appears alert and oriented to self but little slow answering questions. Becomes tearful says she knows answer but having hard time getting me answers.
--- NOTE | 2019-12-09 00:42 | PC.NURSE ---
Pt does well with answering simple yes and no questions. Able to answer age.
[2019-12-09 00:55] LABS: Troponin 5 2HR 12.73 ng/L (0-10)
[2019-12-09] MEDS: sodium chloride 0.9% 1,000 ML 100 ML IV ×3 (01:50→21:02)
[2019-12-09] MEDS: piperacillin-tazobactam 3.375 GM in sodium chloride 0.9% (plus) 50 ML IV ×2 (01:57→21:02)
--- NOTE | 2019-12-09 02:13 | PC.NURSE ---
Also noted bruising to right lower back, pt not sure where it came from.
--- NOTE | 2019-12-09 02:15 | P.HP_ITS ---
Providers/Chief Complaint Admitting Physician: Willie Ladd Primary Care Provider: Bernabe Cuellar DO Chief Complaint: HIP FRACTURE History of Present Illness Lee Ann Leahy is a 69 year old lady with past CVA, with chronic right side spastic changes and sensory loss who 2 days ago sustained a fall at senior living. Reportedly has had pain in the right hip since then. She is reported to be using a walker to ambulate and then has been having difficulty even with the walker. X-ray reportedly was performed at senior living showing right hip fracture. Additional imaging studies were done here in the hospital including CT of the right hip which did not show fracture, but did show a joint effusion. There is some swelling at the right hip and proximal thigh. Patient's family unfortunately currently is gone, however, had indicated to the ER physician who took over care also that patient has had slurred speech and difficulty with cognition over the last several days, along also with left flank pain. CT of the head and CT abdomen pelvis were performed. CT of the head showed 5.8 cm subacute nonhemorrhagic infarct of left parietal lobe. Stable left hemispheric encephalomalacia and dystrophic calcifications. CT abdomen pelvis showed subtle parenchymal inhomogeneity of the left kidney. Trace left hydronephrosis. Gaseous ileus of transverse and descending colon. Urinalysis showed 5-10 WBCs with negative nitrite and negative leukocyte esterase. Review of Systems Narrative: Patient is able to provide only extremely limited review of systems. Apart from already mentioned recent fall, reported right hip pain, difficulty walking, as well as a aphasia, difficulty with cognition, past several days, reported left flank pain. Patient herself denies any current disc omfort. Denies any hip or flank pain. However she does not remember what year it is. Does not know where she is currently. Follows commands, but not consistently. Is able to answer a few simple questions, but also inconsistently. Some of the answers match up with her prior history including CVA, and chronic right-sided paresis. Medications/Allergies Home Medications Medication Instructions Recorded Confirmed Last Taken Type [place] S/[facility] Ml Honey/Lemon Lz See Rx Instructions .ROUTE .COMPLEX 12/08/19 12/08/19 Unknown History Natural Balance Tears 1 drp OPHTHALMIC (EYE) QID 12/08/19 12/08/19 12/08/19 History acetaminophen 650 mg PO Q6H PRN 12/08/19 12/08/19 12/08/19 07:39 History aspirin [Aspir-81] 81 mg PO DAILY 12/08/19 12/08/19 12/08/19 08:43 History azelastine 1 drp OPHTHALMIC (EYE) BID PRN 12/08/19 12/08/19 Unknown History baclofen 5 mg PO TID PRN 12/08/19 12/08/19 12/08/19 16:00 History carboxymethylcellulose sodium 1 - 2 drp OPHTHALMIC (EYE) PRN 12/08/19 12/08/19 Unknown History [Refresh Tears] docusate sodium [Colace] 100 mg PO DAILY PRN 12/08/19 12/08/19 Unknown History erythromycin See Rx Instructions .ROUTE .COMPLEX 12/08/19 12/08/19 12/07/19 History esomeprazole magnesium [Nexium] 40 mg PO DAILY 12/08/19 12/08/19 12/08/19 08:43 History guaifenesin [Mucinex] 600 mg PO BID PRN 12/08/19 12/08/19 Unknown History lisinopril 10 mg PO DAILY 12/08/19 12/08/19 12/08/19 History loperamide [Imodium A-D] 4 mg PO PRN 12/08/19 12/08/19 Unknown History loratadine 10 mg PO DAILY PRN 12/08/19 12/08/19 12/02/19 History methyl salicylate-menthol [Icy Hot] 1 applic TOPICAL BID PRN 12/08/19 12/08/19 Unknown History metoprolol tartrate 50 mg PO Q12H 12/08/19 12/08/19 12/08/19 08:43 History ondansetron HCl [Zofran] 4 mg PO Q6H PRN 12/08/19 12/08/19 12/02/19 History travoprost [Travatan Z] 2 drp OPHTHALMIC (EYE) BEDTIME 12/08/19 12/08/19 12/07/19 History Allergies Allergy/AdvReac Type Severity Reaction Status Date / Time No Known Allergies Allergy Verified 12/08/19 16:43 PFSH Acute 2 PFSH: Medical History Anemia CVA (cerebral vascular accident) Dementia GERD (gastroesophageal reflux disease) Hemiplegia and hemiparesis following cerebral infarction affecting right dominant side HLD (hyperlipidemia) HTN (hypertension) Multiple sclerosis Overactive bladder Social History Smoking and tobacco status: former smoker Supplemental [facility] Information: Past medical problems obtained from senior living documentation. Please see paper chart for complete list. She is unable to provide surgical, family or social history. Vitals/I&O/Wt Last Vital Signs Temp 98.4 F 12/09/19 00:29 Pulse 89 12/09/19 01:49 Resp 18 12/09/19 01:49 BP 132/68 12/09/19 01:49 Pulse Ox 97 12/09/19 01:49 12/08/19 12/08/19 12/09/19 14:59 22:59 06:59 Output Total 125 / 125 Balance -125 / -125 Weight last 48 hrs Weight 72.575 kg Physical Exam Const: COMMON NORMALS: no acute distress GENERAL APPEARANCE: cooperative (Following some simple commands, but inconsistently. On FNF for example with touch to finger but not her nose) NUTRITIONAL APPEARANCE: overweight ORIENTATION/CONSCIOUSNESS: Yes awake and Yes oriented to person; not oriented to place and not oriented to time HENMT: COMMON NORMALS: oropharynx normal Neck/C-Spine: COMMON NORMALS: no JVD Resp: COMMON NORMALS: normal respiratory effort and clear to auscultation bilaterally AUSCULTATION: clear to auscultation bilaterally Cardio: COMMON NORMALS: no JVD, regular rhythm, S1 normal heart sound present, S2 normal heart sound present and No murmurs present (Cardio) RHYTHM: regular rhythm HEART SOUNDS: S1 normal heart sound present and S2 normal heart sound present GI: COMMON NORMALS: Normal to inspection, nondistended, normoactive bowel sounds present, Soft to palpation and non-tender PALPATION: Yes Soft to palpation Extremity: COMMON NORMALS: no joint enlargement and no pedal edema NARRATIVE EXTREMITY EXAM: Right arm and leg contractures Neuro: OTHER: Chronic right side hemiplegia. She confirms history of stroke, confirms findings on the right side are chronic. She says she cannot walk very well. Walks mostly only with assistance. She is not able to follow commands well for rest of the exam, apart from power is 5/5 on the left. Does report sensation loss on R. Noted moderate to severe expressive aphasia. Does not follow commands well. Answers not always consistent (sensory exam face). On FNF touches finger, but not her nose. No dysmetria. Skin: COMMON NORMALS: no rashes or lesions noted GENERAL SKIN EXAM: no rashes or lesions noted Data : 12/08/19 19:51 12/08/19 19:51 Micro: Microbiology 12/08/19 22:05 Blood Culture - Preliminary Blood SPECIMEN COLLECTED 12/08/19 22:00 Blood Culture - Preliminary Blood SPECIMEN COLLECTED A&P Assessment and plan (1) CVA (cerebral vascular accident): History of past CVA with residual right-sided weakness, sensation loss. Unfortunately family not currently available for details, however, in the last several days with reported difficulty speaking, cognitive problems, with noted 5.8 cm subacute nonhemorrhagic infarct in the left parietal lobe new since prior CT. Stable left encephalomalacia. She is already on aspirin. I do not see statin on her medication list. We will add. Check A1c. We will request carotid Doppler. For now start with TTE, however, may need to consider EMILEE as well given some of the other findings, including possible pyelonephritis, as well as right hip effusion. Concern is could there be embolic source causing CVA and renal finding from thromboembolic disease, versus septic embolic disease. This is probably less likely but may need to be considered. Status: Acute Qualifiers: CVA mechanism: unspecified Qualified Code(s): I63.9 - Cerebral infarction, unspecified (2) Acute pyelonephritis: With reported recent left flank pain. 5-10 WBCs in urine. 5-10 RBC. He started on treatment with Zosyn, however, nitrite and leukocyte esterase are negative. Also noted CVA as above, as well as right hip effusion. Less likely but cannot exclude some sort of thromboembolic or septic embolic disease responsible for the combination of these findings. Blood culture requested. Urine culture requested. Continue. With Zosyn and vancomycin for now as below. Follow-up culture results, as well as studies as above. Status: Acute (3) Right hip joint effusion: Reported fall 2 days ago. She reportedly was complaining of right hip pain, although currently she does not say so. She is not a reliable historian definitely. She is afebrile, there is not any redness of the right hip or thigh, but there is some swelling of the right hip and proximal thigh. Noted joint effusion in the right hip. No fracture, although fracture was previously reported at the senior living x-ray. Will be seen by orthopedics in the morning. Requested MRI of the hip. Blood culture has been requested. Will check ESR, CRP. For now empirically on antibiotics with Zosyn and vancomycin. Status: Acute Additional A&P Information Past CVA with chronic right-sided hemiparesis and sensation loss Reported multiple sclerosis HTN HLD Osteoporosis OA Depression Anemia GERD Overactive bladder Seasonal allergic rhinitis Cardiopericardial dystrophies Glaucoma History of falls Other chronic medical problems outlined in senior living documentation. Attestations Medical Necessity Statement*: Admission of over 2 midnights is going to needed for assessment management of CVA, acute pyelonephritis, right hip joint effusion, difficulty walking. 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
[2019-12-09] MEDS: heparin 5,000 unit/mL INJ 1 mL 5000 UNIT SUBCUT ×3 (03:07→17:41)
[2019-12-09] MEDS: atorvastatin 40 mg Tablet PO ×2 (03:09→21:02)
[2019-12-09] MEDS: metoprolol tartrate 50 mg Tablet PO ×2 (03:09→14:31)
--- NOTE | 2019-12-09 04:11 | ECG_ITS ---
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 Measurements Intervals [place] Rate: 72 P: 53 UT: 166 QRS: 55 QRSD: 86 T: 55 QT: 398 QTc: 438 Interpretive Statements SINUS RHYTHM POSSIBLE RIGHT VENTRICULAR CONDUCTION DELAY [RSR (QR) IN V1/V2] Compared to ECG 12/09/2019 00:48:46 T-wave abnormality no longer present Electronically Signed On 12-09-2019 23:46:05 CDT by Iram Power M.D. [id number]
--- NOTE | 2019-12-09 04:47 | PC.NURSE ---
Voided 150ml to bedpan then incont mod amount, pericare per staff.
[2019-12-09 07:13] LABS: Basophils # 0.1 10^3/uL (0.0-0.1); Basophils % 0.6 %; Eosinophils # 0.2 10^3/uL (0.0-0.8); Hematocrit 38.3 % (37.0-47.0); Hemoglobin 11.3 g/dL (11.5-15.3); Lymphocytes # 1.7 10^3/uL (0.8-4.8); Lymphocytes % 19.4 %; Mean Corpuscular HGB Conc 29.5 g/dL (30.0-36.0); Mean Corpuscular Hemoglobin 30.3 pg (28.0-34.0); Mean Corpuscular Volume 102.7 fL (81-99); Mean Platelet Volume 10.3 fL (7.4-10.4); Monocytes # 0.8 10^3/uL (0.2-0.9); Monocytes % 9.4 %; Neutrophils # 6.07 10^3/uL (1.8-7.7); Neutrophils % 68.2 %; Nucleated Red Blood Cells % 0 %; Platelet Count 205 10^3/cmm (130-400); Red Blood Count 3.73 10^6/uL (4.1-5.3); Red Cell Distribution Width 13.2 % (12.1-15.1); White Blood Count 8.9 10^3/uL (4.0-10.0)
[2019-12-09 07:36] LABS: Troponin 5 6HR 11.57 ng/L (0-10)
[2019-12-09 07:42] LABS: Procalcitonin 0.08 ng/mL (0-0.5)
[2019-12-09 08:03] LABS: C Reactive Protein 17.5 mg/L (0.0-4.9)
[2019-12-09 08:19] LABS: Troponin 5 6HR Delta 0.57 ng/L (0-12)
[2019-12-09] MEDS: aspirin 81 mg EC Tablet PO (08:26)
[2019-12-09 08:33] LABS: Estmated Average Glucose 114; Hemoglobin A1C 5.6 % (4.0-6.0)
[2019-12-09 08:57] LABS: Anion Gap 21.2 (5-19); Blood Urea Nitrogen 27 mg/dL (8-23); Calcium 8.8 mg/dL (8.5-10.5); Carbon Dioxide 17 mmol/L (22-29); Chloride 108 mmol/L (98-107); Glomerular Filtration Rate 40.9 mL/min (90-130); Glucose 104 mg/dL (65-115); Osmolality Calculated 291 mOsm/kg (285-295); Potassium 4.2 mmol/L (3.5-5.1); Sodium 142 mmol/L (136-145)
[2019-12-09 11:57] LABS: Erythrocyte Sedimentation Rate 34 mm/hr (0-15)
--- NOTE | 2019-12-09 15:06 | PC.OT ---
OT EVALUATION ORDERS RECEIVED. PATIENT IS SCHEDULED FOR MRI AT 1700 TO DETERMINE STATUS OF HIP INJURY. WILL HOLD EVALUATION UNTIL RESULTS AVAILABLE
--- NOTE | 2019-12-09 16:22 | PM.PN ---
Subjective Subjective: Interval history: Chart reviewed, pending MRI of R hip and MRI head later this afternoon. Hemodynamically stable, afebrile, on RA. Leukocytosis resolved, stable Hg and renal function. Quite aphasic which reportedly is her baseline, significant R-sided weakness which is also chronic. Medications: Reviewed: Yes Medication Review Details: Active Medications Generic Name Dose Route Start Last Admin Trade Name Freq PRN Reason Stop Dose Admin Aspirin 81 mg 12/09/19 09:00 12/09/19 08:26 Aspirin Ec PO 81 mg DAILY ATIF Administration Atorvastatin Calci um 40 mg 12/09/19 02:40 12/09/19 03:09 Lipitor PO 40 mg BEDTIME ATIF Administration Baclofen 5 mg 12/09/19 03:08 Lioresal PO TID PRN SPASTICITY Erythromycin 1 applic 12/09/19 21:00 Erythromycin Op Oint EYE-BOTH BEDTIME ATIF Protocol Guaifenesin 600 mg 12/09/19 02:47 Mucinex PO BID PRN unknown Heparin Sodium (Be ef Lung) 5,000 unit 12/09/19 02:45 12/09/19 08:26 Heparin SUBCUT 5,000 unit Q8H ATIF Administration Sodium Chloride 1,000 mls @ 100 m ls/hr 12/09/19 00:29 12/09/19 08:26 Sodium Chloride 0.9% IV 100 mls/hr .Q10H ATIF Administration Metoprolol Tartrat e 50 mg 12/09/19 03:00 12/09/19 14:31 Lopressor PO 50 mg Q12H ATIF Administration Non-Formulary Medi cation 1 drop 12/09/19 02:47 Azelastine EYEAFF BID PRN ALLERGIC CONJUNCT IVITIS Non-Formulary Medi cation 1 - 2 drop 12/09/19 03:00 Carboxymethylcel lulose Sodium [Ref resh Tears] EYEAFF BID PRN DRY EYE Ondansetron HCl 4 mg 12/09/19 00:29 Zofran IVP Q6H PRN NAUSEA AND VOMITI NG Travoprost 1 drop 12/09/19 21:00 Travatan Z EYE-BOTH BEDTIME ATIF No Known Allergies Allergy (Verified 12/08/19 16:43) Vitals/I&O/Wt Last Vital Signs Temp 98.1 F 12/09/19 15:56 Pulse 82 07/17/20 15:56 Resp 18 12/09/19 15:56 BP 132/70 12/09/19 15:56 Pulse Ox 95 12/09/19 15:56 12/09/19 12/09/19 12/09/19 06:59 14:59 22:59 Intake Total 30 / 30 1020 / 1020 Output Total 275 / 275 600 / 600 Balance -245 / -245 420 / 420 Weight last 48 hrs Weight 72.611 kg Weight 72.575 kg Physical Exam Const: COMMON NORMALS: no acute distress, patient oriented x3 and alert GENERAL APPEARANCE: cooperative and comfortable ORIENTATION/CONSCIOUSNESS: Yes awake HENMT: COMMON NORMALS: normocephalic, atraumatic, hearing grossly normal bilaterally and moist oral mucous membranes HEAD & SCALP: normocephalic and atraumatic Eye: COMMON NORMALS: Equal, round and reactive pupils present, EOMs intact bilaterally and conjunctivae normal CONJUNCTIVA: Yes conjunctivae normal PUPIL: Yes Equal, round and reactive pupils present Neck/C-Spine: COMMON NORMALS: full ROM GENERAL: Yes normal visual inspection and Yes trachea midline Resp: COMMON NORMALS: normal respiratory effort, No retractions, No use of accessory muscles and clear to auscultation bilaterally EFFORT & INSPECTION: Yes able to speak in complete sentences, Yes symmetric chest movement and No tachypneic AUSCULTATION: clear to auscultation bilaterally Cardio: COMMON NORMALS: regular rate, regular rhythm, S1 normal heart sound present, S2 normal heart sound present and No murmurs present (Cardio) RATE: regular rate RHYTHM: regular rhythm HEART SOUNDS: S1 normal heart sound present and S2 normal heart sound present GI: COMMON NORMALS: Normal to inspection, nondistended, normoactive bowel sounds present, Soft to palpation and non-tender INSPECTION: Yes central obesity PALPATION: Yes Soft to palpation Extremity: COMMON NORMALS: normal to inspection, full ROM and no clubbing, cyanosis or edema; negative for no pedal edema Neuro: COMMON NORMALS: patient oriented x3 and no sensory deficits noted SENSORIUM/ORIENTATION: Yes alert SPEECH: expressive aphasia OTHER: -R sided hemiparesis Psych: COMMON NORMALS: mental status grossly normal, Normal thought process present, cooperative, normal affect and speech normal SPEECH: Yes normal speech THOUGHT PROCESS: Normal thought process present Skin: COMMON NORMALS: no rashes or lesions noted, no jaundice, no petechiae and no mottling GENERAL SKIN EXAM: no rashes or lesions noted Data : 12/09/19 05:15 12/09/19 05:15 Micro: Microbiology 12/08/19 22:05 Blood Culture - Preliminary Blood SPECIMEN COLLECTED 12/08/19 22:00 Blood Culture - Preliminary Blood SPECIMEN COLLECTED A&P Assessment and plan (1) CVA (cerebral vascular accident): -limited history available -prior CVA with residual right sided weakness, decreased sensation -noted CT head reported as 5.8 cm subacute non-hemorrhagic infarct in left parietal lobe, stable left hemispheric encephalomalacia. MRI head pending -Echo and carotid ultrasound ordered -Telemetry monitoring -VSS; continue to monitor -Fall/aspiration precautions -PT/ST/OT evaluations -Continue aspirin, statin added -Troponins noted with no significant delta -Check TSH, A1c, lipid panel Status: Acute Qualifiers: CVA mechanism: unspecified Qualified Code(s): I63.9 - Cerebral infarction, unspecified (2) Acute pyelonephritis: -Urinalysis indicative of infection with noted hematuria, pyuria, bacteria -Noted CT abdomen and pelvis findings suggestive of pyelonephritis -Continue antibiotic treatment with vancomycin, Zosyn -f/u blood cx, urine cx -noted leukocytosis, continue to trend WBC -continue to monitor vital signs Status: Acute (3) Acute pain of right hip: -with reported finding of R hip fracture on imaging done at [facility] -imaging here does not show fracture; noted small right hip effusion on CT -Pending MRI for further evaluation -Orthopedic consult requested -Fall precautions -Pain control as needed Status: Acute (4) Right hip joint effusion: -as noted above Status: Acute (5) HTN (hypertension): -VSS; continue to monitor -on BB Status: Chronic Qualifiers: Hypertension type: essential hypertension Qualified Code(s): I10 - Essential (primary) hypertension (6) HLD (hyperlipidemia): -lipid panel ordered -on statin Status: Chronic Qualifiers: Hyperlipidemia type: unspecified Qualified Code(s): E78.5 - Hyperlipidemia, unspecified (7) Multiple sclerosis: Status: Chronic (8) GERD (gastroesophageal reflux disease): -on PPI Status: Chronic Qualifiers: Esophagitis presence: esophagitis presence not specified Qualified Code(s): K21.9 - Gastro-esophageal reflux disease without esophagitis (9) Dementia: -re-orient as needed Status: Chronic Qualifiers: Dementia behavioral disturbance: without behavioral disturbance Dementia type: unspecified type Qualified Code(s): F03.90 - Unspecified dementia without behavioral disturbance Additional A&P Information -cardiac diet as tolerated -DVT ppx with heparin -Dispo: came from [facility] -Code status: FULL code Attestations Medical Necessity Statement*: Patient requires hospitalization for continued CVA work-up including MRI, management of acute right hip pain pending MRI, pain control, and continue treatment of acute pyelonephritis with IV antibiotics pending culture results. Time Spent in Patient Care: Greater than 35 minutes (>than 50% of time spent in counselling and/or direct pt care on unit). Coding Level of Care Code Acute Lieutenant Shift Supervisor for Chg Fwd Exam Comprehensive Diagnoses CVA (cerebral vascular accident) I63.9 CVA mechanism: unspecified Acute pyelonephritis N10 Acute pain of right hip M25.551 Right hip joint effusion M25.451 HTN (hypertension) I10 Hypertension type: essential hypertension HLD (hyperlipidemia) E78.5 Hyperlipidemia type: unspecified Multiple sclerosis G35 GERD (gastroesophageal reflux disease) K21.9 Esophagitis presence: esophagitis presence not specified Dementia F03.90 Dementia behavioral disturbance: without behavioral disturbance Dementia type: unspecified type
--- NOTE | 2019-12-09 16:41 | PM.CONSULT ---
Providers/Reason For Consult Consulting Physican/Specialty*: Dr. Puja Pa - Orthopedics Reason for Consult*: Right hip pain affecting ambulation Requesting Physcian: Dr. Ladd Attending Physician: Radha Villa MD Primary Care Provider: Bernabe Cuellar DO History of Present Illness History of Present Illness Lee Ann Leahy is a 69 year old female who presented to the emergency department last evening after [facility] a [facility]. The patient has a history of a past CVA. He does have right-sided sensory loss and spastic changes consistent with those. Since the patient's fall, she had pain in the right hip. She presented to the emergency department for evaluation. The fall occurred approximately 2 days prior to her presentation to the emergency department. She had been using a walker but then began having increasing difficulties. X-ray was obtained at the retirement and reportedly demonstrated a right hip fracture. At the time of admission, additional imaging studies were done which did not demonstrate a fracture but the patient did have a small joint effusion. In addition to the hip issues, the patient also had a history of left flank pain and increased slurred speech and difficulty with cognition. Therefore she received multiple studies here at the hospital and was admitted to the hospitalist service. Review of Systems General: Reports: ROS unobtainable due to mental status (As reported by Dr. Yeager, the patient has a very limited review of systems and this is defined above. She has memory issues including not remembering what year it is.) Meds/Allergies Home Medications and Allergies Home Medications Medication Instructions Recorded Confirmed Last Taken Type [place] [facility] Honey/Lemon Lz See Rx Instructions .ROUTE .COMPLEX 12/08/19 12/08/19 Unknown History Natural Balance Tears 1 drp OPHTHALMIC (EYE) QID 12/08/19 12/08/19 12/08/19 History acetaminophen 650 mg PO Q6H PRN 12/08/19 12/08/19 12/08/19 07:39 History aspirin [Aspir-81] 81 mg PO DAILY 12/08/19 12/08/19 12/08/19 08:43 History azelastine 1 drp OPHTHALMIC (EYE) BID PRN 12/08/19 12/08/19 Unknown History baclofen 5 mg PO TID PRN 12/08/19 12/08/19 12/08/19 16:00 History carboxymethylcellulose sodium 1 - 2 drp OPHTHALMIC (EYE) PRN 12/08/19 12/08/19 Unknown History [Refresh Tears] docusate sodium [Colace] 100 mg PO DAILY PRN 12/08/19 12/08/19 Unknown History erythromycin See Rx Instructions .ROUTE .COMPLEX 12/08/19 12/08/19 12/07/19 History esomeprazole magnesium [Nexium] 40 mg PO DAILY 12/08/19 12/08/19 12/08/19 08:43 History guaifenesin [Mucinex] 600 mg PO BID PRN 12/08/19 12/08/19 Unknown History lisinopril 10 mg PO DAILY 12/08/19 12/08/19 12/08/19 History loperamide [Imodium A-D] 4 mg PO PRN 12/08/19 12/08/19 Unknown History loratadine 10 mg PO DAILY PRN 12/08/19 12/08/19 12/02/19 History methyl salicylate-menthol [Icy Hot] 1 applic TOPICAL BID PRN 12/08/19 12/08/19 Unknown History metoprolol tartrate 50 mg PO Q12H 12/08/19 12/08/19 12/08/19 08:43 History ondansetron HCl [Zofran] 4 mg PO Q6H PRN 12/08/19 12/08/19 12/02/19 History travoprost [Travatan Z] 2 drp OPHTHALMIC (EYE) BEDTIME 12/08/19 12/08/19 12/07/19 History Allergies Allergy/AdvReac Type Severity Reaction Status Date / Time No Known Allergies Allergy Verified 12/08/19 16:43 Current Medications Current Medications Generic Name Dose Route Start Last Admin Trade Name Freq PRN Reason Stop Dose Admin Aspirin 81 mg 12/09/19 09:00 12/09/19 08:26 Aspirin Ec PO 81 mg DAILY ATIF Administration Atorvastatin Calcium 40 mg 12/09/19 02:40 12/09/19 03:09 Lipitor PO 40 mg BEDTIME ATIF Administration Heparin Sodium (Beef Lung) 5,000 unit 12/09/19 02:45 12/09/19 08:26 Heparin SUBCUT 5,000 unit Q8H ATIF Administration Sodium Chloride 1,000 mls @ 100 mls/hr 12/09/19 00:29 12/09/19 08:26 Sodium Chloride 0.9% IV 100 mls/hr .Q10H ATIF Administration Metoprolol Tartrate 50 mg 12/09/19 03:00 12/09/19 14:31 Lopressor PO 50 mg Q12H ATIF Administration PFSH Acute PFSH: Medical History Anemia CVA (cerebral vascular accident) Dementia GERD (gastroesophageal reflux disease) Hemiplegia and hemiparesis following cerebral infarction affecting right dominant side HLD (hyperlipidemia) HTN (hypertension) Multiple sclerosis Overactive bladder Social History Smoking and tobacco status: former smoker Vitals/I&O/Wt Last Vital Signs Temp 98.1 F 12/09/19 15:56 Pulse 82 12/09/19 15:56 Resp 18 12/09/19 15:56 BP 132/70 12/09/19 15:56 Pulse Ox 95 12/09/19 15:56 12/09/19 12/09/19 12/09/19 06:59 14:59 22:59 Intake Total 30 / 30 1020 / 1020 Output Total 275 / 275 600 / 600 Balance -245 / -245 420 / 420 Weight last 48 hrs Weight 160 lb 1.28 oz Weight 160 lb Physical Exam Const: COMMON NORMALS: no acute distress, average body habitus and alert GENERAL APPEARANCE: cooperative and comfortable ORIENTATION/CONSCIOUSNESS: Yes awake HENMT: COMMON NORMALS: normocephalic and atraumatic HEAD & SCALP: normocephalic and atraumatic Eye: GENERAL EYE: appearance normal, both eyes and all related structures Chest: COMMONS NORMALS: normal inspection of the chest Resp: COMMON NORMALS: normal respiratory effort EFFORT & INSPECTION: Yes able to speak in complete sentences and Yes symmetric chest movement Extremity: NARRATIVE EXTREMITY EXAM: There is right sided hemiplegia secondary to the patient's history of CVA. Normally, she cannot walk very well and uses a walker or assistance. The patient has been complaining of right hip pain. Upon my evaluation today, there is not significant pain. RIGHT LOWER EXTREMITY: Yes hip joint (Range of motion is not painful on either hip. There is no swelling, bruising, or other area of concern to evaluation.) Right hip: Yes inspection (Normal), Yes palpation (No significant discomfort.), Yes ROM (Gentle range of motion is nonpainful.) and Yes neurovascular exam (Neurologic deficit as noted above including hemiplegia.) Neuro: SENSORIUM/ORIENTATION: Yes alert Psych: APPEARANCE: Yes grossly normal ATTITUDE: Yes calm Skin: COMMON NORMALS: no rashes or lesions noted GENERAL SKIN EXAM: no rashes or lesions noted Data Micro: Micro: Microbiology 12/08/19 22:05 Blood Culture - Pr eliminary Blood [facility] 12/08/19 22:00 Blood Culture - Pr eliminary Blood [facility] Imaging^: Right hip x-ray and right CT: I personally reviewed and interpreted this imaging study as follows: My impression: Both x-rays and CT scan are reviewed. There is no fracture identified on either image. There is a small right hip effusion, but alignment is normal. There is no evidence of dislocation. MRI is ordered for further characterization. A&P Assessment and plan (1) Acute pain of right hip: I have reviewed the imaging of the right hip both by CT and plain films. There is no dense of acute finding. There is no evidence of fracture. The bones are osteopenic but otherwise, are unremarkable at this point. There is mild degenerative change within the right hip. I have asked for an MRI to rule out an occult fracture, but otherwise, the patient may be weightbearing as tolerated and will not require further orthopedic services. 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
--- NOTE | 2019-12-09 18:30 | MRR_ITS ---
PROCEDURE INFORMATION: Exam: MR Right Lower Extremity Joint Without Contrast; Hip Exam date and time: 12/09/2019 6:30 PM Age: 69 years old Clinical indication: Injury or trauma; Fall; Initial encounter; Blunt trauma; Hip; Right; Additional info: Hip pain with effusion, history of fall TECHNIQUE: Imaging protocol: MR of the Right lower extremity joint without contrast. Exam focused on the hip. COMPARISON: CT hip RT wo con* [id number] 12/08/2019 8:46 PM FINDINGS: There is no evidence of fracture. There is no bone the pubic rami are intact. The pubic rami are intact. The acetabuli are intact. The bony sacrum and sacroiliac joints unremarkable. The musculature about the hip and pelvis appears normal. There is no mass or hematoma. The bladder appears normal. No pelvic masses are seen. The bowel loops within the pelvis are unremarkable. MR/MR hip RT wo con* [id number] IMPRESSION: 1. No evidence of fracture. 2. No bone marrow edema.
--- NOTE | 2019-12-09 18:30 | MRR_ITS ---
PROCEDURE INFORMATION: Exam: MR Head Without Contrast Exam date and time: 12/09/2019 6:30 PM Age: 69 years old Clinical indication: Other: CVA TECHNIQUE: Imaging protocol: MR of the head without contrast. COMPARISON: CT head wo con* [id number] 12/08/2019 8:41 PM FINDINGS: Diffusion-weighted images show increased signal in the left posterior temporal lobe with restriction on the ADC map. Findings are consistent with acute/subacute infarct. The susceptibility weighted images show no hemorrhage in this region. There is extensive susceptibility artifact likely from the dystrophic calcification seen throughout the brain on the previous CT scan. No additional areas of acute infarct are seen. T1, T2, and FLAIR images demonstrate mild generalized atrophy. There are prominent flow voids involving the left cerebral hemisphere consistent with AVM. This likely is the cause of the dystrophic calcifications. There is significant volume loss involving the left mid brain and bell. There is no evidence for mass. There are no extra-axial fluid collections. There is no midline shift. The skull is intact. The visualized paranasal sinuses are well aerated. There is some fluid within the mastoid air cells on the left. MR/MR head wo con* [id number] IMPRESSION: 1. Acute/subacute infarct involving the left temporal lobe. No associated hemorrhage. 2. Numerous flow voids throughout the left cerebral hemisphere consistent with AVM.
[2019-12-09] MEDS: baclofen 10 mg Tablet 5 MG PO (21:02)
[2019-12-10] VITALS (7 sets, daily range): BP systolic 135–158; BP diastolic 58–76; PULSE 78–94; RESP 17–18; TEMP 36.6–37.1; O2SAT 94–98
[2019-12-10] MEDS: vancomycin 1,000 MG in sodium chloride 0.9% 250 ML 250 MG IV (00:44)
[2019-12-10] MEDS: metoprolol tartrate 50 mg Tablet PO ×2 (03:30→15:16)
[2019-12-10] MEDS: piperacillin-tazobactam 3.375 GM in sodium chloride 0.9% (plus) 50 ML IV ×2 (03:31→12:58)
[2019-12-10] MEDS: heparin 5,000 unit/mL INJ 1 mL 5000 UNIT SUBCUT ×3 (03:31→18:11)
--- NOTE | 2019-12-10 06:00 | USCV_ITS ---
Lee Ann Leahy Age: 69 Gender: F : 1950 Exam Date: 12/10/2019 09:27 Ordering Phys: Willie Ladd MD Technologist: Maddison Hidalgo Exam Location: [facility] [place] Indication: cva BP: 141 / 76 HR: 82 Rhythm: Sinus Technical Quality: Technically difficult study MEASUREMENTS (Male / Female) Normal Values 2D ECHO LV Diastolic Diameter PLAX 2.3 cm 4.2 - 5.9 / 3.9 - 5.3 cm LV Systolic Diameter PLAX 1.2 cm LV Chamber Size 2.8 cm IVS Diastolic Thickness 1.2 cm 0.6 - 1.0 / 0.6 - 0.9 cm IVS Systolic Thickness 1.6 cm LVPW Diastolic Thickness 0.8 cm 0.6 - 1.0 / 0.6 - 0.9 cm LVPW Systolic Thickness 1.0 cm RV Chamber Size 2.4 cm LVOT Diameter 1.8 cm LV Ejection Fraction 2D Teich 82.5 % LA Diameter 3.4 cm LA Width 1.8 cm LA Height 4.3 cm RA Width 1.7 cm RA Height 3.3 cm Aorta at Sinotubular Diameter 1.6 cm M-MODE LV Diastolic Diameter MM 4.2 cm 4.2 - 5.9 / 3.9 - 5.3 cm LV Systolic Diameter MM 2.6 cm LV Ejection Fraction MM Teich 68.5 % IVS Diastolic Thickness MM 1.5 cm 0.6 - 1.0 / 0.6 - 0.9 cm IVS Systolic Thickness MM 1.8 cm LVPW Diastolic Thickness MM 1.1 cm 0.6 - 1.0 / 0.6 - 0.9 cm LVPW Systolic Thickness MM 1.8 cm Aortic Annulus Diameter 2.8 cm LA Ao Ratio MM 1.2 DOPPLER AV Peak Velocity 141.0 cm/s LVOT Peak Velocity 97.0 cm/s AV Area Cont Eq vti 1.9 cm squared AV Area Cont Eq pk 1.8 cm squared MV Area PHT 2.9 cm squared Mitral E to A Ratio 0.7 MV E' Velocity 7.0 cm/s Mitral E to MV E' Ratio 7.5 Mitral E to LV E' Lateral Ratio 7.5 Mitral E to LV E' Septal Ratio 7.6 TV Peak E Velocity 59.0 cm/s Right Atrial Pressure 3.0 mmHg PV Peak Velocity 105.0 cm/s RV Acceleration Time 0.1 s RV Ejection Time 0.3 s RV AcT/ET 0.2 FINDINGS Left Ventricle Normal left ventricular cavity size. Normal left ventricular systolic function. No regional wall motion abnormalities. Left ventricular ejection fraction is estimated at 68 %. Grade I/IV diastolic dysfunction (abnormal relaxation filling pattern), normal to mildly elevated filling pressures. Right Ventricle The right ventricle is normal in size and function. RVSP could not be calculated due to incomplete tricuspid regurgitation velocity profile. Right Atrium The right atrium is normal in size. Left Atrium The left atrium is normal in size. Mitral Valve Structurally normal mitral valve. No mitral valve stenosis. No mitral valve regurgitation. Aortic Valve Mild aortic valve calcification. No aortic valve stenosis. Trace aortic valve regurgitation. Tricuspid Valve Structurally normal tricuspid valve without significant stenosis or regurgitation. Pulmonic Valve Structurally normal pulmonic valve without significant stenosis. There is no pulmonic regurgitation. Pericardium Normal pericardium without effusion. Aorta Normal ascending aorta dimension. CONCLUSIONS 1-Normal left ventricular cavity size. Normal left ventricular systolic function. No regional wall motion abnormalities. Left ventricular ejection fraction is estimated at 68 %. Grade I/IV diastolic dysfunction (abnormal relaxation filling pattern), normal to mildly elevated filling pressures. 2-The right ventricle is normal in size and function. RVSP could not be calculated due to incomplete tricuspid regurgitation velocity profile. 3-Mild aortic valve calcification. No aortic valve stenosis. Trace aortic valve regurgitation. 4-There is no pericardial effusion. 5-Right atrial pressure is around 2 mm of mercury. 6-No significant change since the prior echocardiogram study of 09/17/2014. Ulises Dunbar MD (Electronically Signed) Final Date: 10 December 2019 19:36 S
--- NOTE | 2019-12-10 06:00 | USR_ITS ---
PROCEDURE INFORMATION: Exam: US Duplex Bilateral Extracranial Arteries Exam date and time: 12/10/2019 9:00 AM Age: 69 years old Clinical indication: Altered mental status/memory loss and speech disturbance; Additional info: CVA TECHNIQUE: Imaging protocol: Real-time Duplex ultrasound scan of the bilateral carotid and vertebral arteries combining foster scale, color Doppler and spectral waveform analysis. Bilateral exam. COMPARISON: CT head wo con* [id number] 12/08/2019 8:41 PM FINDINGS: Right common carotid artery: . 89 Centimeters per second Right internal carotid artery: 127 Centimeters per second Right ICA/CCA ratio: Within normal limits. Right external carotid artery: No stenosis in the origin. Right vertebral artery: Vertebral arteries demonstrate antegrade flow. Left common carotid artery: 100 Centimeters per second Left internal carotid artery: . 89 Centimeters per second Left ICA/CCA ratio: Within normal limits. Left external carotid artery: No stenosis in the origin. Left vertebral artery: Unremarkable. Antegrade flow. Lymph nodes: Peak systolic velocity ratio on the right 1.4 and on the left 0.9. US/CV carotid duplex BI* [id number] IMPRESSION: Mild atheromatous disease. No significant stenosis. Somewhat limited exam secondary to labored breathing. REFERENCES: SRU CRITERIA. The degree of internal carotid artery stenosis is based on criteria defined by the Society of Radiologists in Ultrasound (SRU). Normal is no stenosis. Mild is less than 50% stenosis. Moderate is 50-69% stenosis. Severe is greater than 69% stenosis to near occlusion. Near occlusion is a markedly narrowed lumen. Total occlusion is no detectable patent lumen.
[2019-12-10 06:16] LABS: Basophils # 0.1 10^3/uL (0.0-0.1); Basophils % 0.8 %; Eosinophils # 0.2 10^3/uL (0.0-0.8); Hematocrit 36.3 % (37.0-47.0); Hemoglobin 11.1 g/dL (11.5-15.3); Lymphocytes # 1.7 10^3/uL (0.8-4.8); Lymphocytes % 21.7 %; Mean Corpuscular HGB Conc 30.6 g/dL (30.0-36.0); Mean Corpuscular Hemoglobin 29.8 pg (28.0-34.0); Mean Corpuscular Volume 97.3 fL (81-99); Monocytes # 0.6 10^3/uL (0.2-0.9); Monocytes % 7.7 %; Neutrophils # 5.16 10^3/uL (1.8-7.7); Neutrophils % 66.2 %; Nucleated Red Blood Cells % 0 %; Platelet Count 202 10^3/cmm (130-400); Red Blood Count 3.73 10^6/uL (4.1-5.3); Red Cell Distribution Width 12.7 % (12.1-15.1); White Blood Count 7.8 10^3/uL (4.0-10.0)
[2019-12-10 06:58] LABS: Anion Gap 14.3 (5-19); Blood Urea Nitrogen 20 mg/dL (8-23); Calcium 8.6 mg/dL (8.5-10.5); Carbon Dioxide 21 mmol/L (22-29); Chloride 110 mmol/L (98-107); Glomerular Filtration Rate 49.5 mL/min (90-130); Glucose 108 mg/dL (65-115); Osmolality Calculated 289 mOsm/kg (285-295); Potassium 4.3 mmol/L (3.5-5.1); Sodium 141 mmol/L (136-145)
[2019-12-10 09:31] LABS: Estmated Average Glucose 114; Hemoglobin A1C 5.6 % (4.0-6.0)
[2019-12-10] MEDS: aspirin 81 mg EC Tablet PO (09:33)
[2019-12-10] MEDS: pantoprazole DR 40 mg Tablet PO (09:33)
[2019-12-10 09:54] LABS: Chol HDL Ratio 5.79 mg/dL (0.0-4.40); Cholesterol 197 mg/dL (0-200); HDL Cholesterol 34 mg/dL (60-100); LDL Cholesterol Calculated 95 mg/dL (50-129); LDL HDL Ratio 2.79 RATIO (0.00-3.22); Triglycerides 338 mg/dL (0-150)
--- NOTE | 2019-12-10 10:33 | PC.NURSE ---
Family updated. This nurse called and updated family members Teodora and Chelsea at 1030 this am regarding head/hip MRI results. Family verbalized understanding, all questions answered. Physician notified.
--- NOTE | 2019-12-10 14:29 | P.PN_ITS ---
Subjective Subjective: Interval history: Stable hemoglobin, improved renal function, hemodynamically stable, afebrile, on room air. Had Urine cultures growing gram-negative rods so far. In good spirits, no complaints currently including no R hip pain. Medications: Reviewed: Yes Medication Review Details: Active Medications Generic Name Dose Route Start Last Admin Trade Name Freq PRN Reason Stop Dose Admin Artificial Tears 1 drop 12/10/19 14:29 Isopto Tears EYE-BOTH Q4H PRN DRY EYE(S) Aspirin 81 mg 12/09/19 09:00 12/10/19 09:33 Aspirin Ec PO 81 mg DAILY ATIF Administration Atorvastatin Calci um 40 mg 12/09/19 02:40 12/09/19 21:02 Lipitor PO 40 mg BEDTIME ATIF Administration Baclofen 5 mg 12/09/19 03:08 12/09/19 21:02 Lioresal PO 5 mg TID PRN Administration SPASTICITY Erythromycin 1 applic 12/09/19 21:00 12/09/19 21:03 Erythromycin Op Oint EYE-BOTH Not Given BEDTIME ATIF Protocol Guaifenesin 600 mg 12/09/19 02:47 Mucinex PO BID PRN unknown Heparin Sodium (Be ef Lung) 5,000 unit 12/09/19 02:45 12/10/19 09:33 Heparin SUBCUT 5,000 unit Q8H ATIF Administration Sodium Chloride 1,000 mls @ 100 m ls/hr 12/09/19 00:29 12/10/19 06:02 Sodium Chloride 0.9% IV Not Given .Q10H ATIF Vancomycin HCl 1,0 00 mg/ 250 mls @ 250 mls /hr 12/10/19 00:00 12/10/19 00:44 Sodium Chloride IV 250 mls/hr Q24H ATIF Administration Protocol Piperacillin Sod/T azobactam 50 mls @ 12.5 mls /hr 12/09/19 17:00 12/10/19 12:58 Sod 3.375 gm/ So dium Chloride IV 12.5 mls/hr Q8H ATIF Administration Protocol Metoprolol Tartrat e 50 mg 12/09/19 03:00 12/10/19 03:30 Lopressor PO 50 mg Q12H ATIF Administration Non-Formulary Medi cation 1 drop 12/09/19 02:47 Azelastine EYEAFF BID PRN ALLERGIC CONJUNCT IVITIS Non-Formulary Medi cation 1 - 2 drop 12/09/19 03:00 Carboxymethylcel lulose Sodium [Ref resh Tears] EYEAFF BID PRN DRY EYE Ondansetron HCl 4 mg 12/09/19 00:29 Zofran IVP Q6H PRN NAUSEA AND VOMITI NG Pantoprazole Sodiu m 40 mg 12/10/19 09:00 12/10/19 09:33 Protonix PO 40 mg DAILY ATIF Administration Travoprost 1 drop 12/09/19 21:00 12/09/19 21:03 Travatan Z EYE-BOTH Not Given BEDTIME ATIF No Known Allergies Allergy (Verified 12/08/19 16:43) Vitals/I&O/Wt Last Vital Signs Temp 98.1 F 12/10/19 12:00 Pulse 91 12/10/19 12:00 Resp 18 12/10/19 12:00 BP 158/76 12/10/19 12:00 Pulse Ox 95 12/10/19 12:00 12/09/19 12/10/19 12/10/19 22:59 06:59 14:59 Intake Total 999 250 / 2270 290 / 290 Balance 1000 / 1420 250 / 1670 290 / 290 Weight last 48 hrs Weight 74.072 kg Weight 72.611 kg Weight 72.575 kg Physical Exam Const: COMMON NORMALS: no acute distress, patient oriented x3 and alert GENERAL APPEARANCE: cooperative and comfortable ORIENTATION/CONSCIOUSNESS: Yes awake HENMT: COMMON NORMALS: normocephalic, atraumatic, hearing grossly normal bilaterally and moist oral mucous membranes HEAD & SCALP: normocephalic and atraumatic Eye: COMMON NORMALS: Equal, round and reactive pupils present, EOMs intact bilaterally and conjunctivae normal CONJUNCTIVA: Yes conjunctivae normal PUPIL: Yes Equal, round and reactive pupils present Neck/C-Spine: COMMON NORMALS: full ROM GENERAL: Yes normal visual inspection and Yes trachea midline Resp: COMMON NORMALS: normal respiratory effort, No retractions, No use of accessory muscles and clear to auscultation bilaterally EFFORT & INSPECTION: Yes able to speak in complete sentences, Yes symmetric chest movement and No tachypneic AUSCULTATION: clear to auscultation bilaterally Cardio: COMMON NORMALS: regular rate, regular rhythm, S1 normal heart sound present, S2 normal heart sound present and No murmurs present (Cardio) RATE: regular rate RHYTHM: regular rhythm HEART SOUNDS: S1 normal heart sound present and S2 normal heart sound present GI: COMMON NORMALS: Normal to inspection, nondistended, normoactive bowel sounds present, Soft to palpation and non-tender INSPECTION: Yes central obesity PALPATION: Yes Soft to palpation Extremity: COMMON NORMALS: normal to inspection, full ROM and no clubbing, cyanosis or edema; negative for no pedal edema Neuro: COMMON NORMALS: patient oriented x3 and no sensory deficits noted SENSORIUM/ORIENTATION: Yes alert SPEECH: expressive aphasia OTHER: -R sided hemiparesis Psych: COMMON NORMALS: mental status grossly normal, Normal thought process present, cooperative, normal affect and speech normal SPEECH: Yes normal speech THOUGHT PROCESS: Normal thought process present Skin: COMMON NORMALS: no rashes or lesions noted, no jaundice, no petechiae and no mottling GENERAL SKIN EXAM: no rashes or lesions noted Data : 12/10/19 05:36 12/10/19 05:36 Micro: Microbiology 12/08/19 19:13 Urine Culture - Preliminary Urine,Clean Catch Gram Negative Rods 12/08/19 22:05 Blood Culture - Preliminary Blood NEGATIVE TO DATE 12/08/19 22:00 Blood Culture - Preliminary Blood NEGATIVE TO DATE A&P Assessment and plan (1) CVA (cerebral vascular accident): -limited history available -prior CVA with residual right sided weakness, decreased sensation -noted CT head reported as 5.8 cm subacute non-hemorrhagic infarct in left parietal lobe, stable left hemispheric encephalomalacia. MRI head reported as acute/subacute infarct involving L temporal lobe, numerous flow voids throughout the L cerebral hemisphere consistent with AVM. -Echo: EF=68%, G1DD, no RWMA, trace AR -carotid ultrasound with no significant stenosis -Telemetry monitoring -VSS; continue to monitor -Fall/aspiration precautions -PT/ST/OT evaluations appreciated -Continue aspirin, statin added -Troponins noted with no significant delta -noted TSH, A1c, lipid panel Status: Acute Qualifiers: CVA mechanism: unspecified Qualified Code(s): I63.9 - Cerebral infa rction, unspecified (2) Acute pyelonephritis: -Urinalysis indicative of infection with noted hematuria, pyuria, bacteria -Noted CT abdomen and pelvis findings suggestive of pyelonephritis -Continue antibiotic treatment with vancomycin, Zosyn; will switch to Levaquin -blood cx prelim negative -urine cx: GNRs, pending ID & sensitivity -noted resolved leukocytosis -continue to monitor vital signs Status: Acute (3) Acute pain of right hip: -with reported finding of R hip fracture on imaging done at [facility] -imaging here does not show fracture; noted small right hip effusion on CT -MRI hip with no noted fracture and no edema -Orthopedic consult by Dr. Pa appreciated -Fall precautions -Pain control as needed Status: Acute (4) Right hip joint effusion: -as noted above Status: Acute (5) HTN (hypertension): -VSS; continue to monitor -on BB Status: Chronic Qualifiers: Hypertension type: essential hypertension Qualified Code(s): I10 - Essential (primary) hypertension (6) HLD (hyperlipidemia): -lipid panel ordered -on statin Status: Chronic Qualifiers: Hyperlipidemia type: unspecified Qualified Code(s): E78.5 - Hyperlipidemia, unspecified (7) Multiple sclerosis: Status: Chronic (8) GERD (gastroesophageal reflux disease): -on PPI Status: Chronic Qualifiers: Esophagitis presence: esophagitis presence not specified Qualified Code(s): K21.9 - Gastro-esophageal reflux disease without esophagitis (9) Dementia: -re-orient as needed Status: Chronic Qualifiers: Dementia behavioral disturbance: without behavioral disturbance Dementia type: unspecified type Qualified Code(s): F03.90 - Unspecified dementia without behavioral disturbance Additional A&P Information -cardiac diet as tolerated -DVT ppx with heparin -Dispo: came from [facility] -Code status: FULL code Attestations Medical Necessity Statement*: Patient requires hospitalization for continued antibiotic treatment pending urine culture results. Time Spent in Patient Care: 16 - 35 minutes (>than 50% of time spent in counselling and/or direct pt care on unit) . Coding Level of Care Code Acute Resin Maker for Chg Fwd Exam Comprehensive Diagnoses CVA (cerebral vascular accident) I63.9 CVA mechanism: unspecified Acute pyelonephritis N10 Acute pain of right hip M25.551 Right hip joint effusion M25.451 HTN (hypertension) I10 Hypertension type: essential hypertension HLD (hyperlipidemia) E78.5 Hyperlipidemia type: unspecified Multiple sclerosis G35 GERD (gastroesophageal reflux disease) K21.9 Esophagitis presence: esophagitis presence not specified Dementia F03.90 Dementia behavioral disturbance: without behavioral disturbance Dementia type: unspecified type
[2019-12-10] MEDS: artificial tears Op Soln 15 mL Btl 1 DROP EYE-BOTH (21:59)
[2019-12-10] MEDS: atorvastatin 40 mg Tablet PO (21:59)
[2019-12-10] MEDS: erythromycin Op Oint 1 gm 1 APPLIC EYE-BOTH (22:06)
[2019-12-11] VITALS (9 sets, daily range): BP systolic 116–154; BP diastolic 67–84; PULSE 68–88; RESP 16–18; TEMP 36.6–37.1; O2SAT 93–99
[2019-12-11] MEDS: heparin 5,000 unit/mL INJ 1 mL 5000 UNIT SUBCUT ×3 (03:31→17:50)
[2019-12-11] MEDS: metoprolol tartrate 50 mg Tablet PO ×2 (03:31→15:18)
[2019-12-11] MEDS: levoFLOXacin 750 mg Tablet PO (05:33)
--- NOTE | 2019-12-11 09:45 | PC.SOCIAL ---
IMM Page 2 of IMM explained to patient. Initialed, dated, and timed and placed in chart. Copy provided to patient.
[2019-12-11] MEDS: aspirin 81 mg EC Tablet PO (09:58)
[2019-12-11] MEDS: pantoprazole DR 40 mg Tablet PO (09:58)
[2019-12-11] MEDS: acetaminophen 325 mg Tablet 650 MG PO (15:17)
--- NOTE | 2019-12-11 15:49 | PM.PN ---
Subjective Subjective: Interval history: Hemodynamically stable, afebrile, on room air, urine cultures resulted as E. coli, sensitivity noted. Stable hemoglobin, improved renal function. Sitting in chair, seems to be in good spirits, reports having had a headache and is requesting some pain medicine. Seen during PT session and did quite well. Medications: Reviewed: Yes Medication Review Details: Active Medications Generic Name Dose Route Start Last Admin Trade Name Freq PRN Reason Stop Dose Admin Acetaminophen 650 mg 12/11/19 03:34 12/11/19 15:17 Tylenol PO 650 mg Q4H PRN Administration MILD PAIN OR INCR EASE TEMP Artificial Tears 1 drop 12/10/19 14:29 12/10/19 21:59 Isopto Tears EYE-BOTH 1 drop Q4H PRN Administration DRY EYE(S) Aspirin 81 mg 12/09/19 09:00 12/11/19 09:58 Aspirin Ec PO 81 mg DAILY ATIF Administration Atorvastatin Calci um 40 mg 12/09/19 02:40 12/10/19 21:59 Lipitor PO 40 mg BEDTIME ATIF Administration Baclofen 5 mg 12/09/19 03:08 12/09/19 21:02 Lioresal PO 5 mg TID PRN Administration SPASTICITY Erythromycin 1 applic 12/09/19 21:00 12/10/19 22:06 Erythromycin Op Oint EYE-BOTH 1 applic BEDTIME ATIF Administration Protocol Guaifenesin 600 mg 12/09/19 02:47 Mucinex PO BID PRN unknown Heparin Sodium (Be ef Lung) 5,000 unit 12/09/19 02:45 12/11/19 09:59 Heparin SUBCUT 5,000 unit Q8H ATIF Administration Levofloxacin 750 mg 12/11/19 06:00 12/11/19 05:33 Levaquin PO 750 mg DAILY@0600 ATIF Administration Protocol Metoprolol Tartrat e 50 mg 12/09/19 03:00 12/11/19 15:18 Lopressor PO 50 mg Q12H ATIF Administration Non-Formulary Medi cation 1 drop 12/09/19 02:47 Azelastine EYEAFF BID PRN ALLERGIC CONJUNCT IVITIS Non-Formulary Medi cation 1 - 2 drop 12/09/19 03:00 Carboxymethylcel lulose Sodium [Ref resh Tears] EYEAFF BID PRN DRY EYE Ondansetron HCl 4 mg 12/09/19 00:29 Zofran IVP Q6H PRN NAUSEA AND VOMITI NG Pantoprazole Sodiu m 40 mg 12/10/19 09:00 12/11/19 09:58 Protonix PO 40 mg DAILY ATIF Administration Travoprost 1 drop 12/09/19 21:00 12/10/19 22:05 Travatan Z EYE-BOTH 1 drop BEDTIME ATIF Administration No Known Allergies Allergy (Verified 12/08/19 16:43) Vitals/I&O/Wt Last Vital Signs Temp 98.4 F 12/11/19 15:33 Pulse 87 12/11/19 15:33 Resp 17 12/11/19 15:33 BP 116/84 12/11/19 15:33 Pulse Ox 99 12/11/19 15:33 12/11/19 12/11/19 12/11/19 06:59 14:59 22:59 Intake Total 120 / 120 Output Total 400 / 600 100 / 100 Balance -400 / -190 -100 / -100 120 / 20 Weight last 48 hrs Weight 71.356 kg Weight 74.072 kg Physical Exam Const: COMMON NORMALS: no acute distress, patient oriented x3 and alert GENERAL APPEARANCE: cooperative and comfortable ORIENTATION/CONSCIOUSNESS: Yes awake HENMT: COMMON NORMALS: normocephalic, atraumatic, hearing grossly normal bilaterally and moist oral mucous membranes HEAD & SCALP: normocephalic and atraumatic Eye: COMMON NORMALS: Equal, round and reactive pupils present, EOMs intact bilaterally and conjunctivae normal CONJUNCTIVA: Yes conjunctivae normal PUPIL: Yes Equal, round and reactive pupils present Neck/C-Spine: COMMON NORMALS: full ROM GENERAL: Yes normal visual inspection and Yes trachea midline Resp: COMMON NORMALS: normal respiratory effort, No retractions, No use of accessory muscles and clear to auscultation bilaterally EFFORT & INSPECTION: Yes able to speak in complete sentences, Yes symmetric chest movement and No tachypneic AUSCULTATION: clear to auscultation bilaterally Cardio: COMMON NORMALS: regular rate, regular rhythm, S1 normal heart sound present, S2 normal heart sound present and No murmurs present (Cardio) RATE: regular rate RHYTHM: regular rhythm HEART SOUNDS: S1 normal heart sound present and S2 normal heart sound present GI: COMMON NORMALS: Normal to inspection, nondistended, normoactive bowel sounds present, Soft to palpation and non-tender INSPECTION: Yes central obesity PALPATION: Yes Soft to palpation Extremity: COMMON NORMALS: normal to inspection, full ROM and no clubbing, cyanosis or edema; negative for no pedal edema Neuro: COMMON NORMALS: patient oriented x3 and no sensory deficits noted SENSORIUM/ORIENTATION: Yes alert SPEECH: expressive aphasia OTHER: -R sided hemiparesis; contracted RUE Psych: COMMON NORMALS: mental status grossly normal, Normal thought process present, cooperative, normal affect and speech normal SPEECH: Yes normal speech THOUGHT PROCESS: Normal thought process present Skin: COMMON NORMALS: no rashes or lesions noted, no jaundice, no petechiae and no mottling GENERAL SKIN EXAM: no rashes or lesions noted Data : 12/10/19 05:36 12/10/19 05:36 Micro: Microbiology 12/08/19 19:13 Urine Culture - Final Urine,Clean Catch Escherichia coli A&P Assessment and plan (1) CVA (cerebral vascular accident): -limited history available -prior CVA with residual right sided weakness, decreased sensation -noted CT head reported as 5.8 cm subacute non-hemorrhagic infarct in left parietal lobe, stable left hemispheric encephalomalacia. MRI head reported as acute/subacute infarct involving L temporal lobe, numerous flow voids throughout the L cerebral hemisphere consistent with AVM. -Echo: EF=68%, G1DD, no RWMA, trace AR -carotid ultrasound with no significant stenosis -Telemetry monitoring -VSS; continue to monitor -Fall/aspiration precautions -PT/ST/OT evaluations appreciated -Continue aspirin, statin added -Troponins noted with no significant delta -noted TSH, A1c, lipid panel Status: Acute Qualifiers: CVA mechanism: unspecified Qualified Code(s): I63.9 - Cerebral infarction, unspecified (2) Acute pyelonephritis: -Urinalysis indicative of infection with noted hematuria, pyuria, bacteria -Noted CT abdomen and pelvis findings suggestive of pyelonephritis -Continue antibiotic treatment with Levaquin -blood cx prelim negative -urine cx: E.coli, sensitivity noted -noted resolved leukocytosis -continue to monitor vital signs Status: Acute (3) Acute pain of right hip: -with reported finding of R hip fracture on imaging done at [facility] -imaging here does not show fracture; noted small right hip effusion on CT -MRI hip with no noted fracture and no edema -Orthopedic consult by Dr. Pa appreciated -Fall precautions -Pain control as needed Status: Resolved (4) Right hip joint effusion: -as noted above Status: Acute (5) HTN (hypertension): -VSS; continue to monitor -on BB Status: Chronic Qualifiers: Hypertension type: essential hypertension Qualified Code(s): I10 - Essential (primary) hypertension (6) HLD (hyperlipidemia): -lipid panel ordered -on statin Status: Chronic Qualifiers: Hyperlipidemia type: unspecified Qualified Code(s): E78.5 - Hyperlipidemia, unspecified (7) Multiple sclerosis: Status: Chronic (8) GERD (gastroesophageal reflux disease): -on PPI Status: Chronic Qualifiers: Esophagitis presence: esophagitis presence not specified Qualified Code(s): K21.9 - Gastro-esophageal reflux disease without esophagitis (9) Dementia: -re-orient as needed Status: Chronic Qualifiers: Dementia behavioral disturbance: without behavioral disturbance Dementia type: unspecified type Qualified Code(s): F03.90 - Unspecified dementia without behavioral disturbance Additional A&P Information -cardiac diet as tolerated -DVT ppx with heparin -Dispo: came from [facility], needs pre-auth to return -Code status: FULL code Attestations Medical Necessity Statement*: Patient requires hospitalization for continued treatment of UTI with antibiotics, pending return to SNF. Time Spent in Patient Care: 16 - 35 minutes (>than 50% of time spent in counselling and/or direct pt care on unit). 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
[2019-12-11] MEDS: ibuprofen 600 mg Tablet PO (17:39)
[2019-12-11] MEDS: baclofen 10 mg Tablet 5 MG PO (21:03)
[2019-12-11] MEDS: atorvastatin 40 mg Tablet PO (21:04)
[2019-12-11] MEDS: erythromycin Op Oint 1 gm 1 APPLIC EYE-BOTH (21:04)
[2019-12-12] VITALS (7 sets, daily range): BP systolic 126–149; BP diastolic 62–78; PULSE 70–86; RESP 16–18; TEMP 36.3–37.1; O2SAT 95–98
[2019-12-12] MEDS: metoprolol tartrate 50 mg Tablet PO ×2 (02:16→14:17)
[2019-12-12] MEDS: heparin 5,000 unit/mL INJ 1 mL 5000 UNIT SUBCUT ×3 (02:16→17:30)
[2019-12-12] MEDS: levoFLOXacin 750 mg Tablet PO (06:12)
[2019-12-12] MEDS: pantoprazole DR 40 mg Tablet PO (08:23)
[2019-12-12] MEDS: aspirin 81 mg EC Tablet PO (08:23)
[2019-12-12] MEDS: acetaminophen 325 mg Tablet 650 MG PO ×2 (10:19→22:39)
--- NOTE | 2019-12-12 11:02 | PM.PN ---
Subjective Subjective: Interval history: Hemodynamically stable, had 700 mL urine output overnight. Afebrile, received prior auth for return to [facility] but does not feel ready to return to rehab facility. She is unable to tell me exactly why she feels this way. Updated sister Flory over the phone at bedside. Reports hx of migraine headaches in the past, will try imitrex. Medications: Reviewed: Yes Medication Review Details: Active Medications Generic Name Dose Route Start Last Admin Trade Name Freq PRN Reason Stop Dose Admin Acetaminophen 650 mg 12/11/19 03:34 12/12/19 10:19 Tylenol PO 650 mg Q4H PRN Administration MILD PAIN OR INCR EASE TEMP Artificial Tears 1 drop 12/10/19 14:29 12/10/19 21:59 Isopto Tears EYE-BOTH 1 drop Q4H PRN Administration DRY EYE(S) Aspirin 81 mg 12/09/19 09:00 12/12/19 08:23 Aspirin Ec PO 81 mg DAILY ATIF Administration Atorvastatin Calci um 40 mg 12/09/19 02:40 12/11/19 21:04 Lipitor PO 40 mg BEDTIME ATIF Administration Baclofen 5 mg 12/09/19 03:08 12/11/19 21:03 Lioresal PO 5 mg TID PRN Administration SPASTICITY Erythromycin 1 applic 12/09/19 21:00 12/11/19 21:04 Erythromycin Op Oint EYE-BOTH 1 applic BEDTIME ATIF Administration Protocol Guaifenesin 600 mg 12/09/19 02:47 Mucinex PO BID PRN unknown Heparin Sodium (Be ef Lung) 5,000 unit 12/09/19 02:45 12/12/19 10:20 Heparin SUBCUT 5,000 unit Q8H ATIF Administration Levofloxacin 750 mg 12/11/19 06:00 12/12/19 06:12 Levaquin PO 750 mg DAILY@0600 ATIF Administration Protocol Metoprolol Tartrat e 50 mg 12/09/19 03:00 12/12/19 02:16 Lopressor PO 50 mg Q12H ATIF Administration Non-Formulary Medi cation 1 drop 12/09/19 02:47 Azelastine EYEAFF BID PRN ALLERGIC CONJUNCT IVITIS Non-Formulary Medi cation 1 - 2 drop 12/09/19 03:00 Carboxymethylcel lulose Sodium [Ref resh Tears] EYEAFF BID PRN DRY EYE Ondansetron HCl 4 mg 12/09/19 00:29 Zofran IVP Q6H PRN NAUSEA AND VOMITI NG Pantoprazole Sodiu m 40 mg 12/10/19 09:00 12/12/19 08:23 Protonix PO 40 mg DAILY ATIF Administration Travoprost 1 drop 12/09/19 21:00 12/11/19 21:04 Travatan Z EYE-BOTH 1 drop BEDTIME ATIF Administration No Known Allergies Allergy (Verified 12/08/19 16:43) Vitals/I&O/Wt Last Vital Signs Temp 97.3 F L 12/12/19 07:20 Pulse 70 12/12/19 07:20 Resp 18 12/12/19 07:20 BP 128/72 12/12/19 07:20 Pulse Ox 96 12/12/19 07:20 12/11/19 12/12/19 12/12/19 22:59 06:59 14:59 Intake Total 360 / 360 Output Total 200 / 300 500 / 800 350 / 350 Balance 160 / 60 -500 / -440 -350 / -350 Weight last 48 hrs Weight 71.668 kg Weight 71.356 kg Physical Exam Const: COMMON NORMALS: no acute distress, patient oriented x3 and alert GENERAL APPEARANCE: cooperative and comfortable ORIENTATION/CONSCIOUSNESS: Yes awake HENMT: COMMON NORMALS: normocephalic, atraumatic, hearing grossly normal bilaterally and moist oral mucous membranes HEAD & SCALP: normocephalic and atraumatic Eye: COMMON NORMALS: Equal, round and reactive pupils present, EOMs intact bilaterally and conjunctivae normal CONJUNCTIVA: Yes conjunctivae normal PUPIL: Yes Equal, round and reactive pupils present Neck/C-Spine: COMMON NORMALS: full ROM GENERAL: Yes normal visual inspection and Yes trachea midline Resp: COMMON NORMALS: normal respiratory effort, No retractions, No use of accessory muscles and clear to auscultation bilaterally EFFORT & INSPECTION: Yes able to speak in complete sentences, Yes symmetric chest movement and No tachypneic AUSCULTATION: clear to auscultation bilaterally Cardio: COMMON NORMALS: regular rate, regular rhythm, S1 normal heart sound present, S2 normal heart sound present and No murmurs present (Cardio) RATE: regular rate RHYTHM: regular rhythm HEART SOUNDS: S1 normal heart sound present and S2 normal heart sound present GI: COMMON NORMALS: Normal to inspection, nondistended, normoactive bowel sounds present, Soft to palpation and non-tender INSPECTION: Yes central obesity PALPATION: Yes Soft to palpation Extremity: COMMON NORMALS: normal to inspection, full ROM and no clubbing, cyanosis or edema; negative for no pedal edema Neuro: COMMON NORMALS: patient oriented x3 and no sensory deficits noted SENSORIUM/ORIENTATION: Yes alert SPEECH: expressive aphasia OTHER: -R sided hemiparesis; contracted RUE Psych: COMMON NORMALS: mental status grossly normal, Normal thought process present, cooperative, normal affect and speech normal SPEECH: Yes normal speech THOUGHT PROCESS: Normal thought process present Skin: COMMON NORMALS: no rashes or lesions noted, no jaundice, no petechiae and no mottling GENERAL SKIN EXAM: no rashes or lesions noted Data : 12/10/19 05:36 12/10/19 05:36 Micro: Microbiology 12/08/19 19:13 Urine Culture - Final Urine,Clean Catch Escherichia coli A&P Assessment and plan (1) CVA (cerebral vascular accident): -limited history available -prior CVA with residual right sided weakness, decreased sensation -noted CT head reported as 5.8 cm subacute non-hemorrhagic infarct in left parietal lobe, stable left hemispheric encephalomalacia. MRI head reported as acute/subacute infarct involving L temporal lobe, numerous flow voids throughout the L cerebral hemisphere consistent with AVM. -Echo: EF=68%, G1DD, no RWMA, trace AR -carotid ultrasound with no significant stenosis -Telemetry monitoring -VSS; continue to monitor -Fall/aspiration precautions -PT/ST/OT evaluations appreciated -Continue aspirin, statin added -Troponins noted with no significant delta -noted TSH, A1c, lipid panel Status: Acute Qualifiers: CVA mechanism: unspecified Qualified Code(s): I63.9 - Cerebral infarction, unspecified (2) Acute pyelonephritis: -Urinalysis indicative of infection with noted hematuria, pyuria, bacteria -Noted CT abdomen and pelvis findings suggestive of pyelonephritis -Continue antibiotic treatment with Levaquin -blood cx prelim negative -urine cx: E.coli, sensitivity noted -noted resolved leukocytosis -continue to monitor vital signs Status: Acute (3) Acute pain of right hip: -with reported finding of R hip fracture on imaging done at [facility] -imaging here does not show fracture; noted small right hip effusion on CT -MRI hip with no noted fracture and no edema -Orthopedic consult by Dr. Pa appreciated -Fall precautions -Pain control as needed Status: Resolved (4) Right hip joint effusion: -as noted above Status: Acute (5) HTN (hypertension): -VSS; continue to monitor -on BB Status: Chronic Qualifiers: Hypertension type: essential hypertension Qualified Code(s): I10 - Essential (primary) hypertension (6) HLD (hyperlipidemia): -lipid panel ordered -on statin Status: Chronic Qualifiers: Hyperlipidemia type: unspecified Qualified Code(s): E78.5 - Hyperlipidemia, unspecified (7) Multiple sclerosis: Status: Chronic (8) GERD (gastroesophageal reflux disease): -on PPI Status: Chronic Qualifiers: Esophagitis presence: esophagitis presence not specified Qualified Code(s): K21.9 - Gastro-esophageal reflux disease without esophagitis (9) Dementia: -re-orient as needed Status: Chronic Qualifiers: Dementia behavioral disturbance: without behavioral disturbance Dementia type: unspecified type Qualified Code(s): F03.90 - Unspecified dementia without behavioral disturbance Additional A&P Information -cardiac diet as tolerated -DVT ppx with heparin -Dispo: came from [facility], needs pre-auth to return -Code status: FULL code Attestations Medical Necessity Statement*: Patient requires hospitalization for continued treatment of UTI, pain control given persistent headache. Time Spent in Patient Care: 16 - 35 minutes (>than 50% of time spent in counselling and/or direct pt care on unit). 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
[2019-12-12] MEDS: SUMAtriptan 25 mg Tablet PO (13:35)
[2019-12-12] MEDS: atorvastatin 40 mg Tablet PO (22:42)
[2019-12-12] MEDS: erythromycin Op Oint 1 gm 1 APPLIC EYE-BOTH (22:42)
[2019-12-13] MEDS: metoprolol tartrate 50 mg Tablet PO ×2 (02:28→18:37)
[2019-12-13] MEDS: heparin 5,000 unit/mL INJ 1 mL 5000 UNIT SUBCUT ×3 (02:28→18:38)
[2019-12-13 04:00] VITALS: BP 137/74; PULSE 81; RESP 16; TEMP 36.8; O2SAT 96
[2019-12-13] MEDS: levoFLOXacin 750 mg Tablet PO (05:59)
[2019-12-13 08:00] VITALS: BP 114/68; PULSE 72; RESP 18; TEMP 36.9; O2SAT 96
[2019-12-13] MEDS: pantoprazole DR 40 mg Tablet PO (09:09)
[2019-12-13] MEDS: aspirin 81 mg EC Tablet PO (09:09)
--- NOTE | 2019-12-13 09:14 | DCPLANNER ---
Pg 2 of IM updated and reviewed with pt. She remarks that she is very familiar with the message. Copy provided.
[2019-12-13 11:43] VITALS: BP 149/79; PULSE 92; RESP 18; TEMP 36.8; O2SAT 97
--- NOTE | 2019-12-13 12:32 | P.PN_ITS ---
Subjective Subjective: Interval history: No acute overnight events reported, had 450 mL urine output overnight, hemodynamically stable, remains on room air, had a bowel movement earlier today. Has been ambulating in the hallway. Reports feeling good then later during our encounter complains of a headache. Again is quite reluctant to return to [facility] today as she does not feel ready to go back though unable to provide further details on this. Explained that she is medically stable. Still reluctant to be discharged. Medications: Reviewed: Yes Medication Review Details: Active Medications Generic Name Dose Route Start Last Admin Trade Name Freq PRN Reason Stop Dose Admin Acetaminophen 650 mg 12/11/19 03:34 12/12/19 22:39 Tylenol PO 650 mg Q4H PRN Administration MILD PAIN OR INCR EASE TEMP Artificial Tears 1 drop 12/10/19 14:29 12/10/19 21:59 Isopto Tears EYE-BOTH 1 drop Q4H PRN Administration DRY EYE(S) Aspirin 81 mg 12/09/19 09:00 12/13/19 09:09 Aspirin Ec PO 81 mg DAILY ATIF Administration Atorvastatin Calci um 40 mg 12/09/19 02:40 12/12/19 22:42 Lipitor PO 40 mg BEDTIME ATIF Administration Baclofen 5 mg 12/09/19 03:08 12/11/19 21:03 Lioresal PO 5 mg TID PRN Administration SPASTICITY Erythromycin 1 applic 12/09/19 21:00 12/12/19 22:42 Erythromycin Op Oint EYE-BOTH 1 applic BEDTIME ATIF Administration Protocol Guaifenesin 600 mg 12/09/19 02:47 Mucinex PO BID PRN unknown Heparin Sodium (Be ef Lung) 5,000 unit 12/09/19 02:45 12/13/19 02:28 Heparin SUBCUT 5,000 unit Q8H ATIF Administration Levofloxacin 750 mg 12/11/19 06:00 12/13/19 05:59 Levaquin PO 750 mg DAILY@0600 ATIF Administration Protocol Metoprolol Tartrat e 50 mg 12/09/19 03:00 12/13/19 02:28 Lopressor PO 50 mg Q12H ATIF Administration Non-Formulary Medi cation 1 drop 12/09/19 02:47 Azelastine EYEAFF BID PRN ALLERGIC CONJUNCT IVITIS Non-Formulary Medi cation 1 - 2 drop 12/09/19 03:00 Carboxymethylcel lulose Sodium [Ref resh Tears] EYEAFF BID PRN DRY EYE Ondansetron HCl 4 mg 12/09/19 00:29 Zofran IVP Q6H PRN NAUSEA AND VOMITI NG Pantoprazole Sodiu m 40 mg 12/10/19 09:00 12/13/19 09:09 Protonix PO 40 mg DAILY ATIF Administration Sumatriptan Succin ate 25 mg 12/12/19 19:58 Imitrex PO Q2H PRN MIGRAINE HEADACHE Travoprost 1 drop 12/09/19 21:00 12/12/19 22:42 Travatan Z EYE-BOTH 1 drop BEDTIME ATIF Administration No Known Allergies Allergy (Verified 12/08/19 16:43) Vitals/I&O/Wt Last Vital Signs Temp 98.3 F 12/13/19 11:43 Pulse 92 12/13/19 11:43 Resp 18 12/13/19 11:43 BP 149/79 12/13/19 11:43 Pulse Ox 97 12/13/19 11:43 12/12/19 12/13/19 12/13/19 22:59 06:59 14:59 Intake Total 180 / 420 100 / 520 240 / 240 Output Total 300 / 1050 450 / 1500 Balance -120 / -630 -350 / -980 240 / 240 Weight last 48 hrs Weight 72.348 kg Weight 71.668 kg Physical Exam Const: COMMON NORMALS: no acute distress, patient oriented x3 and alert GENERAL APPEARANCE: cooperative and comfortable ORIENTATION/CONSCIOUSNESS: Yes awake HENMT: COMMON NORMALS: normocephalic, atraumatic, hearing grossly normal bilaterally and moist oral mucous membranes HEAD & SCALP: normocephalic and atraumatic Eye: COMMON NORMALS: Equal, round and reactive pupils present, EOMs intact bilaterally and conjunctivae normal CONJUNCTIVA: Yes conjunctivae normal PUPIL: Yes Equal, round and reactive pupils present Neck/C-Spine: COMMON NORMALS: full ROM GENERAL: Yes normal visual inspection and Yes trachea midline Resp: COMMON NORMALS: normal respiratory effort, No retractions, No use of accessory muscles and clear to auscultation bilaterally EFFORT & INSPECTION: Yes able to speak in complete sentences, Yes symmetric chest movement and No tachypneic AUSCULTATION: clear to auscultation bilaterally Cardio: COMMON NORMALS: regular rate, regular rhythm, S1 normal heart sound present, S2 normal heart sound present and No murmurs present (Cardio) RATE: regular rate RHYTHM: regular rhythm HEART SOUNDS: S1 normal heart sound present and S2 normal heart sound present GI: COMMON NORMALS: Normal to inspection, nondistended, normoactive bowel sounds present, Soft to palpation and non-tender INSPECTION: Yes central obesity PALPATION: Yes Soft to palpation Extremity: COMMON NORMALS: normal to inspection, full ROM and no clubbing, cyanosis or edema; negative for no pedal edema Neuro: COMMON NORMALS: patient oriented x3 and no sensory deficits noted SENSORIUM/ORIENTATION: Yes alert SPEECH: expressive aphasia OTHER: -R sided hemiparesis; contracted RUE Psych: COMMON NORMALS: mental status grossly normal, Normal thought process present, cooperative, normal affect and speech normal SPEECH: Yes normal speech THOUGHT PROCESS: Normal thought process present Skin: COMMON NORMALS: no rashes or lesions noted, no jaundice, no petechiae and no mottling GENERAL SKIN EXAM: no rashes or lesions noted Data : 12/10/19 05:36 12/10/19 05:36 A&P Assessment and plan (1) CVA (cerebral vascular accident): -limited history available -prior CVA with residual right sided weakness, decreased sensation -noted CT head reported as 5.8 cm subacute non-hemorrhagic infarct in left parietal lobe, stable left hemispheric encephalomalacia. MRI head reported as acute/subacute infarct involving L temporal lobe, numerous flow voids throughout the L cerebral hemisphere consistent with AVM. -Echo: EF=68%, G1DD, no RWMA, trace AR -carotid ultrasound with no significant stenosis -Telemetry monitoring -VSS; continue to monitor -Fall/aspiration precautions -PT/ST/OT evaluations appreciated -Continue aspirin, statin added -Troponins noted with no significant delta -noted TSH, A1c, lipid panel Status: Acute Qualifiers: CVA mechanism: unspecified Qualified Code(s): I63.9 - Cerebral infarction, unspecified (2) Acute pyelonephritis: -Urinalysis indicative of infection with noted hematuria, pyuria, bacteria -Noted CT abdomen and pelvis findings suggestive of pyelonephritis -Continue antibiotic treatment with Levaquin -blood cx prelim negative -urine cx: E.coli, sensitivity noted -noted resolved leukocytosis -continue to monitor vital signs Status: Acute (3) Acute pain of right hip: -with reported finding of R hip fracture on imaging done at [facility] -imaging here does not show fracture; noted small right hip effusion on CT -MRI hip with no noted fracture and no edema -Orthopedic consult by Dr. Pa appreciated -Fall precautions -Pain control as needed Status: Resolved (4) Right hip joint effusion: -as noted above Status: Acute (5) HTN (hypertension): -VSS; continue to monitor -on BB Status: Chronic Qualifiers: Hypertension type: essential hypertension Qualified Code(s): I10 - Essential (primary) hypertension (6) HLD (hyperlipidemia): -lipid panel ordered -on statin Status: Chronic Qualifiers: Hyperlipidemia type: unspecified Qualified Code(s): E78.5 - Hyperl ipidemia, unspecified (7) Multiple sclerosis: Status: Chronic (8) GERD (gastroesophageal reflux disease): -on PPI Status: Chronic Qualifiers: Esophagitis presence: esophagitis presence not specified Qualified Code(s): K21.9 - Gastro-esophageal reflux disease without esophagitis (9) Dementia: -re-orient as needed Status: Chronic Qualifiers: Dementia type: unspecified type Dementia behavioral disturbance: without behavioral disturbance Qualified Code(s): F03.90 - Unspecified dementia without behavioral disturbance Additional A&P Information -cardiac diet as tolerated -DVT ppx with heparin -Dispo: came from [facility], obtained pre-auth to return -Code status: FULL code Attestations Medical Necessity Statement*: Patient requires hospitalization for continued treatment of UTI. Time Spent in Patient Care: 16 - 35 minutes (>than 50% of time spent in counselling and/or direct pt care on unit) . Coding Level of Care Code Acute Desk Attendant for Chg Fwd Diagnoses CVA (cerebral vascular accident) I63.9 CVA mechanism: unspecified Acute pyelonephritis N10 Acute pain of right hip M25.551 Right hip joint effusion M25.451 HTN (hypertension) I10 Hypertension type: essential hypertension HLD (hyperlipidemia) E78.5 Hyperlipidemia type: unspecified Multiple sclerosis G35 GERD (gastroesophageal reflux disease) K21.9 Esophagitis presence: esophagitis presence not specified Dementia F03.90 Dementia type: unspecified type Dementia behavioral disturbance: without behavioral disturbance
[2019-12-13] MEDS: SUMAtriptan 25 mg Tablet PO (12:39)
[2019-12-13 15:11] VITALS: BP 138/80; PULSE 91; RESP 18; TEMP 36.9; O2SAT 98
[2019-12-13 19:57] VITALS: BP 114/65; PULSE 87; RESP 19; TEMP 36.6; O2SAT 96
[2019-12-13] MEDS: atorvastatin 40 mg Tablet PO (20:22)
[2019-12-13] MEDS: erythromycin Op Oint 1 gm 1 APPLIC EYE-BOTH (20:22)
[2019-12-13] MEDS: acetaminophen 325 mg Tablet 650 MG PO (21:15)
[2019-12-14 04:00] VITALS: BP 126/67; PULSE 87; RESP 18; TEMP 36.6; O2SAT 97
[2019-12-14] MEDS: metoprolol tartrate 50 mg Tablet PO (05:51)
[2019-12-14] MEDS: levoFLOXacin 750 mg Tablet PO (05:52)
[2019-12-14] MEDS: heparin 5,000 unit/mL INJ 1 mL 5000 UNIT SUBCUT (05:52)
[2019-12-14 07:28] VITALS: BP 124/73; PULSE 81; RESP 16; TEMP 36.7; O2SAT 97
[2019-12-14] MEDS: aspirin 81 mg EC Tablet PO (08:21)
[2019-12-14] MEDS: pantoprazole DR 40 mg Tablet PO (08:21)
--- NOTE | 2019-12-14 08:21 | PC.NURSE ---
In room to give patient her morning medications. This casualty underwriter asked patient hoe she is feeling and patient states, You know I really feel pretty good today. Patient sitting up in chair eating breakfast.
[2019-12-14 10:52] VITALS: BP 152/68; PULSE 100; RESP 16; TEMP 37; O2SAT 97
--- NOTE | 2019-12-14 12:44 | P.DS_ITS ---
Discharge Providers Date of Admission: 12/08/19 23:00 Date of Discharge: December 14, 2019 Attending Provider at Admission: Willie Ladd Attending Provider at Discharge: Radha Villa MD Primary Care Provider: Bernabe Cuellar DO Diagnoses at Discharge Discharge Diagnosis (1) CVA (cerebral vascular accident): Status: Acute Problem details: -prior CVA with residual right sided weakness, decreased sensation -noted CT head reported as 5.8 cm subacute non-hemorrhagic infarct in left parietal lobe, stable left hemispheric encephalomalacia. MRI head reported as acute/subacute infarct involving L temporal lobe, numerous flow voids throughout the L cerebral hemisphere consistent with AVM. -Echo: EF=68%, G1DD, no RWMA, trace AR -carotid ultrasound with no significant stenosis -Telemetry monitoring -VSS -Fall/aspiration precautions -PT/ST/OT evaluations appreciated -Continue aspirin, statin added -Troponins noted with no significant delta -noted TSH, A1c, lipid panel Qualifiers: CVA mechanism: unspecified Qualified Code(s): I63.9 - Cerebral infarction, unspecified (2) Acute pyelonephritis: Status: Acute Problem details: -Urinalysis indicative of infection with noted hematuria, pyuria, bacteria -Noted CT abdomen and pelvis findings suggestive of pyelonephritis -Continue antibiotic treatment with Levaquin -blood cx: negative -urine cx: E.coli, sensitivity noted -noted resolved leukocytosis -stable vital signs (3) Acute pain of right hip: Status: Resolved Problem details: -with reported finding of R hip fracture on imaging done at [facility] -imaging here does not show fracture; noted small right hip effusion on CT -MRI hip with no noted fracture and no edema -Orthopedic consult by Dr. Pa appreciated -Fall precautions -Pain control as needed (4) Right hip joint effusion: Status: Acute Problem details: -as noted above (5) HTN (hypertension): Status: Chronic Problem details: -VSS; continue to monitor -on BB Qualifiers: Hypertension type: essential hypertension Qualified Code(s): I10 - Essential (primary) hypertension (6) HLD (hyperlipidemia): Status: Chronic Problem details: -lipid panel ordered -on statin Qualifiers: Hyperlipidemia type: unspecified Qualified Code(s): E78.5 - Hyperlipidemia, unspecified (7) Multiple sclerosis: Status: Chronic (8) GERD (gastroesophageal reflux disease): Status: Chronic Problem details: -on PPI Qualifiers: Esophagitis presence: esophagitis presence not specified Qualified Code(s): K21.9 - Gastro-esophageal reflux disease without esophagitis (9) Dementia: Status: Chronic Qualifiers: Dementia behavioral disturbance: without behavioral disturbance Dementia type: unspecified type Qualified Code(s): F03.90 - Unspecified demen tia without behavioral disturbance Reason for Visit Reason for Visit: HIP FRACTURE Hospital Course Hospital Course: Patient was admitted to the medical surgical floor and placed on telemetry monitoring. She had reportedly been noted to have right hip fracture on imaging done at [facility] prior to admission of acute right hip pain she had further imaging which consisted of a CT showing a right hip effusion and an MRI which was unremarkable. Orthopedics was consulted and Dr. Pa evaluated the patient with recommendation made for weightbearing as tolerated. Urinalysis was found to be indicative of infection so she was started on IV antibiotics. Urine culture has resulted growing E. coli and blood cultures have been negative. She has been transitioned to oral antibiotics which she will need to continue for several more days to complete her treatment course. She has been afebrile, hemodynamically stable, maintained on room air. Right hip pain has resolved and she has been ambulatory using a cane and being evaluated by physical therapy as well. She had also presented with findings suspicious for CVA still had CT head done with a noted 5.8 cm subacute nonhemorrhagic infarct in the left parietal lobe and MRI showing acute/subacute infarct involving the left temporal lobe; both of which are noted above. She will be returning to [facility] and should resume therapy services on her return. She is advised to seek medical attention immediately should her symptoms recur. She seems to be at her baseline currently. Discharge Summary: -Patient to follow-up with her primary care provider per SNF or within 1 week -Patient to follow-up with neurology Physical Exam Const: COMMON NORMALS: no acute distress, patient oriented x3 and alert GENERAL APPEARANCE: cooperative and comfortable ORIENTATION/CONSCIOUSNESS: Yes awake HENMT: COMMON NORMALS: normocephalic, atraumatic, hearing grossly normal bilaterally and moist oral mucous membranes HEAD & SCALP: normocephalic and atraumatic Eye: COMMON NORMALS: Equal, round and reactive pupils present, EOMs intact bilaterally and conjunctivae normal CONJUNCTIVA: Yes conjunctivae normal PUPIL: Yes Equal, round and reactive pupils present Neck/C-Spine: COMMON NORMALS: full ROM GENERAL: Yes normal visual inspection and Yes trachea midline Resp: COMMON NORMALS: normal respiratory effort, No retractions, No use of accessory muscles and clear to auscultation bilaterally EFFORT & INSPECTION: Yes able to speak in complete sentences, Yes symmetric chest movement and No tachypneic AUSCULTATION: clear to auscultation bilaterally Cardio: COMMON NORMALS: regular rate, regular rhythm, S1 normal heart sound present, S2 normal heart sound present and No murmurs present (Cardio) RATE: regular rate RHYTHM: regular rhythm HEART SOUNDS: S1 normal heart sound present and S2 normal heart sound present GI: COMMON NORMALS: Normal to inspection, nondistended, normoactive bowel sounds present, Soft to palpation and non-tender INSPECTION: Yes central obesity PALPATION: Yes Soft to palpation Extremity: COMMON NORMALS: normal to inspection, full ROM and no clubbing, cyanosis or edema; negative for no pedal edema Neuro: COMMON NORMALS: patient oriented x3 and no sensory deficits noted SENSORIUM/ORIENTATION: Yes alert SPEECH: expressive aphasia OTHER: -R sided hemiparesis; contracted RUE Psych: COMMON NORMALS: mental status grossly normal, Normal thought process present, cooperative, normal affect and speech normal SPEECH: Yes normal speech THOUGHT PROCESS: Normal thought process present Skin: COMMON NORMALS: no rashes or lesions noted, no jaundice, no petechiae and no mottling GENERAL SKIN EXAM: no rashes or lesions noted Discharge Data Data Completed and Pending: Completed Studies During Hospitalization Category Date Time Status CT abdomen pelvis w con* [id number] Stat Cat Scan 12/08/19 19:[address] head wo con* [id number] Stat Cat Scan 12/08/19 19:[address] hip RT wo con* [id number] Urgent Cat Scan 12/08/19 17:34 Completed XR hip RT 2-3V wo /w pel* [id number] Stat Exams 12/08/19 16:45 Completed MR head wo con* [id number] Urgent MRI 12/09/19 18:30 Completed MR hip RT wo con* [id number] Urgent MRI 12/09/19 18:30 Completed CV carotid duplex BI* [id number] Routine Ultrasound 12/10/19 06:00 Completed CV echo complete* [id number] Routine Ultrasound 12/10/19 06:00 [place] [id number] Stat Ultrasound 12/08/19 22:41 Completed Vitals: Last Vital Signs Temp 98.6 F 12/14/19 10:52 Pulse 100 12/14/19 10:52 Resp 16 12/14/19 10:52 BP 152/68 12/14/19 10:52 Pulse Ox 97 12/14/19 10:52 Discharge Plan Discharge Patient Disposition: Xfer SNF Condition: Stable Prescriptions: New atorvastatin 40 mg Tablet 40 mg PO BEDTIME 30 Days Qty: 30 RF: 0 sumatriptan succinate 25 mg Tablet 25 mg PO Q2H PRN (Reason: Migraine Headache) Qty: 30 RF: 0 levofloxacin 750 mg tablet 750 mg PO DAILY 4 Days Qty: 4 RF: 0 Continued azelastine 0.05 % Drops 1 drp OPHTHALMIC (EYE) BID PRN (Reason: unknown) RF: 0 acetaminophen 325 mg Tablet 650 mg PO Q6H PRN (Reason: unknown) RF: 0 Imodium A-D 2 mg Tablet 4 mg PO PRN RF: 0 Aspir-81 81 mg Tablet,Delayed Release (Dr/Ec) 81 mg PO DAILY RF: 0 erythromycin 5 mg/gram (0.5 %) Ointment See Rx Instructions .ROUTE .COMPLEX RF: 0 Nexium 40 mg Capsule,Delayed Release(Dr/Ec) 40 mg PO DAILY RF: 0 metoprolol tartrate 50 mg Tablet 50 mg PO Q12H RF: 0 Colace 100 mg Capsule 100 mg PO DAILY PRN (Reason: unknown) RF: 0 loratadine 10 mg Tablet 10 mg PO DAILY PRN (Reason: Allergy Symptoms) RF: 0 Icy Hot 30-10 % Cream 1 applic TOPICAL BID PRN (Reason: unknown) RF: 0 baclofen 5 mg Tablet 5 mg PO TID PRN (Reason: unknown) RF: 0 [place] S/F Ml Honey/Lemon Lz See Rx Instructions .ROUTE .COMPLEX RF: 0 Zofran 4 mg Tablet 4 mg PO Q6H PRN (Reason: Nausea) RF: 0 Travatan Z 0.004 % Drops 2 drp ophthalmic (eye) BEDTIME RF: 0 Refresh Tears 0.5 % Drops 1 - 2 drp ophthalmic (eye) PRN RF: 0 lisinopril 10 mg Tablet 10 mg PO DAILY RF: 0 Mucinex 600 mg Tablet Extended Release 12hr 600 mg PO BID PRN (Reason: unknown) RF: 0 Natural Balance Tears 1 drp ophthalmic (eye) QID RF: 0 Discharge Orders: Discharge Order (Routine); Ordered 12/14/19 Ordered By: Radha Villa Referrals: [facility] [Outside] Adelia Locke MD [Physician] - 1 month (Follow up s/p CVA. ) Bernabe Cuellar DO [Primary Care Provider] - 4-7 days (Post hospital discharge follow up) Discharge Diet: Cardiac Discharge Activity: Increase activity as tolerated, Use walker/crutches as instructed and As per PT/OT instructions Patient Instructions: Hypertension, Heart Healthy Diet (DC), Osteoarthritis (DC), Dementia (GEN), Gastroesophageal Reflux Disease (DC), Ischemic Stroke (DC), Hyperlipidemia (DC) Activity Restrictions/Additional Instructions: -Please resume therapy on return to [facility] Discharge Date/Time: 12/14/19 14:45 Discharge Attestations Time Spent in Discharge Care*: greater than 30 min Specific Discharge Activities: Specific discharge activities: educating patient, discussing with assistant case manager/social workers/dc planners, documenting/other paperwork and evaluating patient/reviewing data Status at Discharge: Cognitive status at discharge: cognitively intact , Behavioral status at discharge: cooperative and dependent in ADL's , Functional status at discharge: uses cane/walker Overall status at discharge: patient is back to baseline Quality Metrics Clinical Quality Measures During this hospital stay, did patient experience: None Coding Level of Care Code Acute Mutuel Clerk for g Fwd Exam Comprehensive Diagnoses CVA (cerebral vascular accident) I63.9 CVA mechanism: unspecified Acute pyelonephritis N10 Acute pain of right hip M25.551 Right hip joint effusion M25.451 HTN (hypertension) I10 Hypertension type: essential hypertension HLD (hyperlipidemia) E78.5 Hyperlipidemia type: unspecified Multiple sclerosis G35 GERD (gastroesophageal reflux disease) K21.9 Esophagitis presence: esophagitis presence not specified Dementia F03.90 Dementia behavioral disturbance: without behavioral disturbance Dementia type: unspecified type
[2019-12-14] MEDS: acetaminophen 325 mg Tablet 650 MG PO (14:20)
--- NOTE | 2019-12-14 14:38 | PC.NURSE ---
Patient discharged at this time. Patient wheel chaired to [employer] [facility] at this time. Patient is A&Ox3. Respirations even and non-labor on room air. All patient's belongings sent with patient.
[2019-12-14 14:42] VITALS: BP 152/68; PULSE 100; RESP 16; TEMP 37; O2SAT 97
== END 2019-12-14 14:45 | disposition skilled nursing facility (03) ==
LOC: ER 23:02 → MEDSURG 12-09 07:40
PROVIDERS: Emergency Medicine; Admitting Provider Internal Medicine; PCP Internal Medicine; Visit Provider Family Medicine
DX: I63.9 Cerebral infarction, unspecified (principal); N10 Acute pyelonephritis; M25.451 Effusion, right hip; M25.551 Pain in right hip; I10 Essential (primary) hypertension; E78.5 Hyperlipidemia, unspecified; G35 Multiple sclerosis; K21.9 Gastro-esophageal reflux disease without esophagitis; F03.90 Unspecified dementia, unspecified severity, without behavioral disturbance, psychotic disturbance, mood disturbance, and anxiety; R60.0 Localized edema; I69.851 Hemiplegia and hemiparesis following other cerebrovascular disease affecting right dominant side; Z79.82 Long term (current) use of aspirin; M81.0 Age-related osteoporosis without current pathological fracture; M19.90 Unspecified osteoarthritis, unspecified site; Z91.81 History of falling; Z87.891 Personal history of nicotine dependence
CPT/HCPCS: 12345; 36415; 70450; 70551; 73502; 73700; 73721; 74177; 80048; 80053; 80061; 81001; 81003; 83036; 83605; 84145; 84443; 84484; 85025; 85651; 86140; 87040; 87077; 87086; 87186; 92507; 92523; 92610; 93005; 93306; 93880; 93971; 96360; 96365; 96366; 96372; 96375; 97110; 97116; 97161; 97165; 97530; 97535; 99284; G0378; J0696; J1644; J2270; J2405; J2543; J3370; J7030; J7050; Q9967

== ENCOUNTER 2020-03-08 08:10 | Emergency (ER) | payer MEDICARE, MEDICAID, SELFPAY ==
[2020-03-08] VITALS (15 sets, daily range): BP systolic 105–168; BP diastolic 49–100; PULSE 77–109; RESP 16–42; TEMP 39.3; O2SAT 92–98; BMI 31.8
--- NOTE | 2020-03-08 08:27 | XR_ITS ---
WS: [id number] Portable AP semiupright chest, 03/08/2020 Clinical Data: sob Comparison: Portable chest, 09/17/2014. Findings: Bilateral patchy opacities consistent with pneumonia are present. No nodules, masses or eff usions are seen. The heart is normal. The pulmonary vascularity is not increased. Monitor leads are o n the chest wall. XR/XR chest 1V portable [id number] Impression: Bilateral patchy opacities consistent with pneumonia.
--- NOTE | 2020-03-08 08:27 | ECG_ITS ---
[facility] Test Date: 2020-03-08 Pat Name: Lee Ann Leahy Department: Room: Gender: Female Bander Operator: : 1950 Requested By: Jacob Faust Order Number: [id number] Vincent MD: Edwar Daugherty M.D. Measurements Intervals [place] Rate: 107 P: 32 NV: 131 QRS: 7 QRSD: 78 T: 39 QT: 329 QTc: 439 Interpretive Statements SINUS TACHYCARDIA LEFT ATRIAL ENLARGEMENT [-0.15mV P WAVE IN V1/V2] Compared to ECG 12/09/2019 04:52:09 Atrial abnormality now present Sinus rhythm no longer present Electronically Signed On 03-08-2020 18:41:48 CDT by Edwar Daugherty M.D. [email or web address]
[2020-03-08 08:37] LABS: ABG PCO2 35.7 mmHg (35-45); Base Excess ABG 4.2 mmol/L (-2.0-2.0); Blood Gas Allen Test Pos; Blood Gas Operator Identificat CAK; Blood Gas Sample Site Radial, right; Blood Gas Sample Type Arterial; HCO3 ABG 27.5 mmol/L (22-26); Oxygen Device NC; PO2 ABG 92.3 mmHg (80.0-100.0)
[2020-03-08 08:48] LABS: Basophils % 0.1 %; Eosinophils % 0.1 %; Hematocrit 40.5 % (37.0-47.0); Hemoglobin 13.1 g/dL (11.5-15.3); Lymphocytes # 0.8 10^3/uL (0.8-4.8); Lymphocytes % 9.9 %; Mean Corpuscular HGB Conc 32.3 g/dL (30.0-36.0); Mean Corpuscular Hemoglobin 29.8 pg (28.0-34.0); Mean Corpuscular Volume 92.3 fL (81-99); Mean Platelet Volume 10.2 fL (7.4-10.4); Monocytes # 0.4 10^3/uL (0.2-0.9); Monocytes % 4.8 %; Neutrophils # 6.99 10^3/uL (1.8-7.7); Neutrophils % 83.7 %; Nucleated Red Blood Cells % 0 %; Platelet Count 138 10^3/cmm (130-400); Red Blood Count 4.39 10^6/uL (4.1-5.3); Red Cell Distribution Width 13.6 % (12.1-15.1); White Blood Count 8.4 10^3/uL (4.0-10.0)
[2020-03-08] MEDS: dexamethasone 4 mg/mL INJ 6 MG IVP (08:52)
[2020-03-08 08:57] LABS: Fibrinogen 548 mg/dL (174-498); INR 0.99 (0.8-1.2)
[2020-03-08 08:59] LABS: D Dimer 0.59 ug/mIFEU (0-0.59)
[2020-03-08 09:01] LABS: Lactic Sepsis W/Reflex 1.4 mmol/L (0.5-2.2)
[2020-03-08 09:06] LABS: Troponin T (5th) Once 20 ng/L (0-10)
[2020-03-08 09:22] LABS: NT Pro B Type Natriuretic Pept 738 pg/mL (0-125); Procalcitonin 0.21 ng/mL (0-0.5)
[2020-03-08 09:32] LABS: Influenza A by IFA Negative (Negative); Influenza B by IFA Negative (Negative); SARS Covid-2 Antigen Positive (Negative)
[2020-03-08 09:33] LABS: Alanine Aminotransferase 27 U/L (0-33); Albumin Level 3.8 g/dL (3.5-5.2); Alkaline Phosphatase 82 IU/L (35-105); Anion Gap 15.2 (5-19); Aspartate Amino Transferase 19 U/L (0-32); Blood Urea Nitrogen 18 mg/dL (8-23); C Reactive Protein 208.7 mg/L (0.0-4.9); Calcium 8.8 mg/dL (8.5-10.5); Carbon Dioxide 26 mmol/L (22-29); Chloride 97 mmol/L (98-107); Ferritin 323 ng/mL (15-150); Globulin 2.2 g/dL (1.3-4.6); Glomerular Filtration Rate 49.5 mL/min (90-130); Glucose 114 mg/dL (65-115); Lactate Dehydrogenase 327 U/L (135-214); Magnesium 1.8 mg/dL (1.7-2.3); Osmolality Calculated 281 mOsm/kg (285-295); Potassium 4.2 mmol/L (3.5-5.1); Sodium 134 mmol/L (136-145); Total Bilirubin 1.3 mg/dL (0.15-1.2)
--- NOTE | 2020-03-08 09:59 | ED_ITS ---
Documented by User: Kaushal Mcadams DO 03/10/20 11:11 HPI - SOB/Dyspnea General: Chief Complaint: Shortness of Breath/Dyspnea Stated Complaint: RESPIRATORY DISTRESS Time Seen by Provider: 03/08/20 08:15 History of Present Illness: HPI Narrative: 69-year-old female who [facility] she tested positive for Covid 1 week ago. She is not been taking medications and started on dexamethasone and Lovenox. She is hypoxic at the jail on 4 L she is holding her sats at 98% but she is very tachypneic. She has a history of previous stroke, dementia as well as multiple sclerosis and is poorly responsive cannot contribute at all to her history. MD elicited complaint: shortness of breath and cough Pertinent past history: diabetes Onset (ago): day(s) Timing: constant Severity: severe Exacerbating factors: movement and coughing Relieving factors: oxygen and rest Associated symptoms: Reports chest congestion, cough and fever(s) Treatment prior to arrival: oxygen Review of Systems General: Reports: ROS unobtainable due to mental status Const: Reports: fever(s) Resp: Reports: chest congestion PFS ED PFSH: Medical History Anemia CVA (cerebral vascular accident) -prior CVA with residual right sided weakness, decreased sensation -noted CT head reported as 5.8 cm subacute non-hemorrhagic infarct in left parietal lobe, stable left hemispheric encephalomalacia. MRI head reported as acute/subacute infarct involving L temporal lobe, numerous flow voids throughout the L cerebral hemisphere consistent with AVM. -Echo: EF=68%, G1DD, no RWMA, trace AR -carotid ultrasound with no significant stenosis -Telemetry monitoring -VSS -Fall/aspiration precautions -PT/ST/OT evaluations appreciated -Continue aspirin, statin added -Troponins noted with no significant delta -noted TSH, A1c, lipid panel Dementia GERD (gastroesophageal reflux disease) -on PPI Hemiplegia and hemiparesis following cerebral infarction affecting right d ominant side HLD (hyperlipidemia) -lipid panel ordered -on statin HTN (hypertension) -VSS; continue to monitor -on BB Multiple sclerosis Overactive bladder Social History Smoking and tobacco status: former smoker Physical Exam HENMT: COMMON NORMALS: normocephalic, atraumatic and hearing grossly normal bilaterally HEAD & SCALP: normocephalic and atraumatic Resp: AUSCULTATION: rhonchi and wheezes Cardio: COMMON NORMALS: regular rhythm RATE: tachycardic RHYTHM: regular rhythm GI: COMMON NORMALS: Soft to palpation and No hepatosplenomegaly present AUSCULTATION: Yes normoactive bowel sounds PALPATION: Yes Soft to palpation, No Tenderness to palpation present (GI), No Guarding due to palpation present (GI) and Yes No hepatosplenomegaly present Extremity: COMMON NORMALS: normal to inspection, capillary refill normal, no clubbing, cyanosis or edema, no calf tenderness and no pedal edema Skin: COMMON NORMALS: no rashes or lesions noted GENERAL SKIN EXAM: no rashes or lesions noted Course Vital Signs: Vital signs: Vital Signs Temperature 102.8 F H 03/08/20 08:35 Pulse Rate 83 03/08/20 21:22 Respiratory Rate 16 03/08/20 21:22 Blood Pressure 132/76 03/08/20 21:22 Pulse Oximetry 96 03/08/20 21:22 MDM - SOB/Dyspnea MDM Narrative: Medical decision making narrative: On initial presentation patient is hypoxic. She tested positive for Covid on 03 01. We are going to go ahead and place her on BiPAP which did improve her symptoms. Transfer is being arranged to [facility] at this time she is a full code at the jail we confirmed this. We are waiting for transportation. Dr. Andrews made aware of the patient's presence in the emergency room at the end of my shift. There is an inbound helicopter to transport her here do within the next hour. Lab Data: Labs: Lab Results 03/08/20 03/08/20 03/08/20 Range/Units 08:22 08:25 08:25 WBC 8.4 (4.0-10.0) 10^3/ uL RBC 4.39 (4.1-5.3) 10^6/u L Hgb 13.1 (11.5-15.3) g/dL Hct 40.5 (37.0-47.0) % MCV 92.3 (81-99) fL MCH 29.8 (28.0-34.0) pg MCHC 32.3 (30.0-36.0) g/dL RDW 13.6 (12.1-15.1) % Plt Count 138 (130-400) 10^3/c mm MPV 10.2 (7.4-10.4) fL Neut % (Auto) 83.7 % Lymph % (Auto) 9.9 % Jack % (Auto) 4.8 % Eos % (Auto) 0.1 % Baso % (Auto) 0.1 % Neut # (Auto) 6.99 (1.8-7.7) 10^3/u L Lymph # (Auto) 0.8 (0.8-4.8) 10^3/u L Jack # (Auto) 0.4 (0.2-0.9) 10^3/u L Eos # (Auto) 0.0 (0.0-0.8) 10^3/u L Baso # (Auto) 0.0 (0.0-0.1) 10^3/u L Nucleated RBC % (a uto) 0 % Nucleated RBCs # 0.0 /100WBC PT 13.40 (12.1-14.9) SECO NDS INR 0.99 (0.8-1.2) Fibrinogen 548 H (174-498) mg/dL D-Dimer 0.59 (0-0.59) ug/mIFE U Specimen Type Arterial Sample Site Radial, right ABG pH 7.50 H (7.35-7.45) ABG pCO2 35.7 (35-45) mmHg ABG pO2 92.3 (80.0-100.0) mmH g ABG HCO3 27.5 H (22-26) mmol/L ABG Base Excess 4.2 H (-2.0-2.0) mmol/ L Danny Test Pos Hematocrit 40.0 (37-47) % O2 Delivery Device Nc O2 Liters/Min 4.0 % FiO2 36.0 % Terminal Press Operator ID Cak Sodium (136-145) mmol/L Potassium (3.5-5.1) mmol/L Chloride (98-107) mmol/L Carbon Dioxide (22-29) mmol/L Anion Gap (5-19) BUN (8-23) mg/dL Creatinine (0.5-0.9) mg/dL GFR Calculation (90-130) mL/min Glucose (65-115) mg/dL Calculated Osmolal ity (285-295) mOsm/k g Lactic Acid (0.5-2.2) mmol/L Calcium (8.5-10.5) mg/dL Magnesium (1.7-2.3) mg/dL Ferritin (15-150) ng/mL Total Bilirubin (0.15-1.2) mg/dL AST (0-32) U/L ALT (0-33) U/L Alkaline Phosphata se (35-105) IU/L Lactate Dehydrogen ase (135-214) U/L Troponin T Gen 5 n g/L (0-10) ng/L C-Reactive Protein (0.0-4.9) mg/L NT-Pro-B Natriuret Pep (0-125) pg/mL Total Protein (6.6-8.7) g/dL Albumin (3.5-5.2) g/dL Globulin (1.3-4.6) g/dL Procalcitonin (0-0.5) ng/mL Influenza Type A A g (Negative) Influenza Type B A g (Negative) SARS-CoV-2 Ag (Rap id) (Negative) 03/08/20 03/08/20 03/08/20 Range/Units 08:25 08:25 08:25 WBC (4.0-10.0) 10^3/ uL RBC (4.1-5.3) 10^6/u L Hgb (11.5-15.3) g/dL Hct (37.0-47.0) % MCV (81-99) fL MCH (28.0-34.0) pg MCHC (30.0-36.0) g/dL RDW (12.1-15.1) % Plt Count (130-400) 10^3/c mm MPV (7.4-10.4) fL Neut % (Auto) % Lymph % (Auto) % Jack % (Auto) % Eos % (Auto) % Baso % (Auto) % Neut # (Auto) (1.8-7.7) 10^3/u L Lymph # (Auto) (0.8-4.8) 10^3/u L Jack # (Auto) (0.2-0.9) 10^3/u L Eos # (Auto) (0.0-0.8) 10^3/u L Baso # (Auto) (0.0-0.1) 10^3/u L Nucleated RBC % (a uto) % Nucleated RBCs # /100WBC PT (12.1-14.9) SECO NDS INR (0.8-1.2) Fibrinogen (174-498) mg/dL D-Dimer (0-0.59) ug/mIFE U Specimen Type Sample Site ABG pH (7.35-7.45) ABG pCO2 (35-45) mmHg ABG pO2 (80.0-100.0) mmH g ABG HCO3 (22-26) mmol/L ABG Base Excess (-2.0-2.0) mmol/ L Danny Test Hematocrit (37-47) % O2 Delivery Device O2 Liters/Min % FiO2 % Terminal Press Operator ID Sodium 134 L (136-145) mmol/L Potassium 4.2 (3.5-5.1) mmol/L Chloride 97 L (98-107) mmol/L Carbon Dioxide 26 (22-29) mmol/L Anion Gap 15.2 (5-19) BUN 18 (8-23) mg/dL Creatinine 1.1 H (0.5-0.9) mg/dL GFR Calculation 49.5 L (90-130) mL/min Glucose 114 (65-115) mg/dL Calculated Osmolal ity 281 L (285-295) mOsm/k g Lactic Acid 1.4 (0.5-2.2) mmol/L Calcium 8.8 (8.5-10.5) mg/dL Magnesium 1.8 (1.7-2.3) mg/dL Ferritin 323 H (15-150) ng/mL Total Bilirubin 1.3 H (0.15-1.2) mg/dL AST 19 (0-32) U/L ALT 27 (0-33) U/L Alkaline Phosphata se 82 (35-105) IU/L Lactate Dehydrogen ase 327 H (135-214) U/L Troponin T Gen 5 n g/L 20 H (0-10) ng/L C-Reactive Protein 208.7 H (0.0-4.9) mg/L NT-Pro-B Natriuret Pep 738 H (0-125) pg/mL Total Protein 6.0 L (6.6-8.7) g/dL Albumin 3.8 (3.5-5.2) g/dL Globulin 2.2 (1.3-4.6) g/dL Procalcitonin 0.21 (0-0.5) ng/mL Influenza Type A A g (Negative) Influenza Type B A g (Negative) SARS-CoV-2 Ag (Rap id) (Negative) 03/08/20 03/08/20 Range/Units 08:55 08:55 WBC (4.0-10.0) 10^3/ uL RBC (4.1-5.3) 10^6/u L Hgb (11.5-15.3) g/dL Hct (37.0-47.0) % MCV (81-99) fL MCH (28.0-34.0) pg MCHC (30.0-36.0) g/dL RDW (12.1-15.1) % Plt Count (130-400) 10^3/c mm MPV (7.4-10.4) fL Neut % (Auto) % Lymph % (Auto) % Jack % (Auto) % Eos % (Auto) % Baso % (Auto) % Neut # (Auto) (1.8-7.7) 10^3/u L Lymph # (Auto) (0.8-4.8) 10^3/u L Jack # (Auto) (0.2-0.9) 10^3/u L Eos # (Auto) (0.0-0.8) 10^3/u L Baso # (Auto) (0.0-0.1) 10^3/u L Nucleated RBC % (a uto) % Nucleated RBCs # /100WBC PT (12.1-14.9) SECO NDS INR (0.8-1.2) Fibrinogen (174-498) mg/dL D-Dimer (0-0.59) ug/mIFE U Specimen Type Sample Site ABG pH (7.35-7.45) ABG pCO2 (35-45) mmHg ABG pO2 (80.0-100.0) mmH g ABG HCO3 (22-26) mmol/L ABG Base Excess (-2.0-2.0) mmol/ L Adnny Test Hematocrit (37-47) % O2 Delivery Device O2 Liters/Min % FiO2 % Terminal Press Operator ID Sodium (136-145) mmol/L Potassium (3.5-5.1) mmol/L Chloride (98-107) mmol/L Carbon Dioxide (22-29) mmol/L Anion Gap (5-19) BUN (8-23) mg/dL Creatinine (0.5-0.9) mg/dL GFR Calculation (90-130) mL/min Glucose (65-115) mg/dL Calculated Osmolal ity (285-295) mOsm/k g Lactic Acid (0.5-2.2) mmol/L Calcium (8.5-10.5) mg/dL Magnesium (1.7-2.3) mg/dL Ferritin (15-150) ng/mL Total Bilirubin (0.15-1.2) mg/dL AST (0-32) U/L ALT (0-33) U/L Alkaline Phosphata se (35-105) IU/L Lactate Dehydrogen ase (135-214) U/L Troponin T Gen 5 n g/L (0-10) ng/L C-Reactive Protein (0.0-4.9) mg/L NT-Pro-B Natriuret Pep (0-125) pg/mL Total Protein (6.6-8.7) g/dL Albumin (3.5-5.2) g/dL Globulin (1.3-4.6) g/dL Procalcitonin (0-0.5) ng/mL Influenza Type A A g Negative (Negative) Influenza Type B A g Negative (Negative) SARS-CoV-2 Ag (Rap id) Positive H (Negative) Discharge Plan Discharge Patient Disposition: Xfer Short-Term Hosp Clinical Impression: COVID-19 virus infection Referrals: Bernabe Cuellar DO [Primary Care Provider] - Discharge Date/Time: 03/08/20 21:25 Coding Level of Care Code ED Rock Dust Sprayer for Chg Fwd Exam Detailed Documented by User: Donita Andrews MD 03/11/20 11:25 HPI - SOB/Dyspnea General: Chief Complaint: Shortness of Breath/Dyspnea Stated Complaint: RESPIRATORY DISTRESS Time Seen by Provider: 03/08/20 08:15 [facility] ED PFSH: Medical History Anemia CVA (cerebral vascular accident) -prior CVA with residual right sided weakness, decreased sensation -noted CT head reported as 5.8 cm subacute non-hemorrhagic infarct in left parietal lobe, stable left hemispheric encephalomalacia. MRI head reported as acute/subacute infarct involving L temporal lobe, numerous flow voids throughout the L cerebral hemisphere consistent with AVM. -Echo: EF=68%, G1DD, no RWMA, trace AR -carotid ultrasound with no significant stenosis -Telemetry monitoring -VSS -Fall/aspiration precautions -PT/ST/OT evaluations appreciated -Continue aspirin, statin added -Troponins noted with no significant delta -noted TSH, A1c, lipid panel Dementia GERD (gastroesophageal reflux disease) -on PPI Hemiplegia and hemiparesis following cerebral infarction affecting right do minant side HLD (hyperlipidemia) -lipid panel ordered -on statin HTN (hypertension) -VSS; continue to monitor -on BB Multiple sclerosis Overactive bladder Social History Smoking and tobacco status: former smoker Course Vital Signs: Vital signs: Vital Signs Temperature 102.8 F H 03/08/20 08:35 Pulse Rate 83 03/08/20 21:22 Respiratory Rate 16 03/08/20 21:22 Blood Pressure 132/76 03/08/20 21:22 Pulse Oximetry 96 03/08/20 21:22 MDM - SOB/Dyspnea MDM Narrative: Medical decision making narrative: Before transfer I trialed patient off of BiPAP. Patient did very well on nasal cannula and had saturatio ns of 96% the whole time. When EMS had arrived for transfer she had done well and I did not believe she needed to be intubated she is been tolerating nasal cannula with no difficulty and no respiratory distress. Patient transferred by helicopter and was stable while here. Lab Data: Labs: Lab Results 03/08/20 03/08/20 03/08/20 Range/Units 08:22 08:25 08:25 WBC 8.4 (4.0-10.0) 10^3/ uL RBC 4.39 (4.1-5.3) 10^6/u L Hgb 13.1 (11.5-15.3) g/dL Hct 40.5 (37.0-47.0) % MCV 92.3 (81-99) fL MCH 29.8 (28.0-34.0) pg MCHC 32.3 (30.0-36.0) g/dL RDW 13.6 (12.1-15.1) % Plt Count 138 (130-400) 10^3/c mm MPV 10.2 (7.4-10.4) fL Neut % (Auto) 83.7 % Lymph % (Auto) 9.9 % Jack % (Auto) 4.8 % Eos % (Auto) 0.1 % Baso % (Auto) 0.1 % Neut # (Auto) 6.99 (1.8-7.7) 10^3/u L Lymph # (Auto) 0.8 (0.8-4.8) 10^3/u L Jack # (Auto) 0.4 (0.2-0.9) 10^3/u L Eos # (Auto) 0.0 (0.0-0.8) 10^3/u L Baso # (Auto) 0.0 (0.0-0.1) 10^3/u L Nucleated RBC % (a uto) 0 % Nucleated RBCs # 0.0 /100WBC PT 13.40 (12.1-14.9) SECO NDS INR 0.99 (0.8-1.2) Fibrinogen 548 H (174-498) mg/dL D-Dimer 0.59 (0-0.59) ug/mIFE U Specimen Type Arterial Sample Site Radial, right ABG pH 7.50 H (7.35-7.45) ABG pCO2 35.7 (35-45) mmHg ABG pO2 92.3 (80.0-100.0) mmH g ABG HCO3 27.5 H (22-26) mmol/L ABG Base Excess 4.2 H (-2.0-2.0) mmol/ L Danny Test Pos Hematocrit 40.0 (37-47) % O2 Delivery Device Nc O2 Liters/Min 4.0 % FiO2 36.0 % Terminal Press Operator ID Cak Sodium (136-145) mmol/L Potassium (3.5-5.1) mmol/L Chloride (98-107) mmol/L Carbon Dioxide (22-29) mmol/L Anion Gap (5-19) BUN (8-23) mg/dL Creatinine (0.5-0.9) mg/dL GFR Calculation (90-130) mL/min Glucose (65-115) mg/dL Calculated Osmolal ity (285-295) mOsm/k g Lactic Acid (0.5-2.2) mmol/L Calcium (8.5-10.5) mg/dL Magnesium (1.7-2.3) mg/dL Ferritin (15-150) ng/mL Total Bilirubin (0.15-1.2) mg/dL AST (0-32) U/L ALT (0-33) U/L Alkaline Phosphata se (35-105) IU/L Lactate Dehydrogen ase (135-214) U/L Troponin T Gen 5 n g/L (0-10) ng/L C-Reactive Protein (0.0-4.9) mg/L NT-Pro-B Natriuret Pep (0-125) pg/mL Total Protein (6.6-8.7) g/dL Albumin (3.5-5.2) g/dL Globulin (1.3-4.6) g/dL Procalcitonin (0-0.5) ng/mL Influenza Type A A g (Negative) Influenza Type B A g (Negative) SARS-CoV-2 Ag (Rap id) (Negative) 03/08/20 03/08/20 03/08/20 Range/Units 08:25 08:25 08:25 WBC (4.0-10.0) 10^3/ uL RBC (4.1-5.3) 10^6/u L Hgb (11.5-15.3) g/dL Hct (37.0-47.0) % MCV (81-99) fL MCH (28.0-34.0) pg MCHC (30.0-36.0) g/dL RDW (12.1-15.1) % Plt Count (130-400) 10^3/c mm MPV (7.4-10.4) fL Neut % (Auto) % Lymph % (Auto) % Jack % (Auto) % Eos % (Auto) % Baso % (Auto) % Neut # (Auto) (1.8-7.7) 10^3/u L Lymph # (Auto) (0.8-4.8) 10^3/u L Jack # (Auto) (0.2-0.9) 10^3/u L Eos # (Auto) (0.0-0.8) 10^3/u L Baso # (Auto) (0.0-0.1) 10^3/u L Nucleated RBC % (a uto) % Nucleated RBCs # /100WBC PT (12.1-14.9) SECO NDS INR (0.8-1.2) Fibrinogen (174-498) mg/dL D-Dimer (0-0.59) ug/mIFE U Specimen Type Sample Site ABG pH (7.35-7.45) ABG pCO2 (35-45) mmHg ABG pO2 (80.0-100.0) mmH g ABG HCO3 (22-26) mmol/L ABG Base Excess (-2.0-2.0) mmol/ L Danny Test Hematocrit (37-47) % O2 Delivery Device O2 Liters/Min % FiO2 % Terminal Press Operator ID Sodium 134 L (136-145) mmol/L Potassium 4.2 (3.5-5.1) mmol/L Chloride 97 L (98-107) mmol/L Carbon Dioxide 26 (22-29) mmol/L Anion Gap 15.2 (5-19) BUN 18 (8-23) mg/dL Creatinine 1.1 H (0.5-0.9) mg/dL GFR Calculation 49.5 L (90-130) mL/min Glucose 114 (65-115) mg/dL Calculated Osmolal ity 281 L (285-295) mOsm/k g Lactic Acid 1.4 (0.5-2.2) mmol/L Calcium 8.8 (8.5-10.5) mg/dL Magnesium 1.8 (1.7-2.3) mg/dL Ferritin 323 H (15-150) ng/mL Total Bilirubin 1.3 H (0.15-1.2) mg/dL AST 19 (0-32) U/L ALT 27 (0-33) U/L Alkaline Phosphata se 82 (35-105) IU/L Lactate Dehydrogen ase 327 H (135-214) U/L Troponin T Gen 5 n g/L 20 H (0-10) ng/L C-Reactive Protein 208.7 H (0.0-4.9) mg/L NT-Pro-B Natriuret Pep 738 H (0-125) pg/mL Total Protein 6.0 L (6.6-8.7) g/dL Albumin 3.8 (3.5-5.2) g/dL Globulin 2.2 (1.3-4.6) g/dL Procalcitonin 0.21 (0-0.5) ng/mL Influenza Type A A g (Negative) Influenza Type B A g (Negative) SARS-CoV-2 Ag (Rap id) (Negative) 03/08/20 03/08/20 Range/Units 08:55 08:55 WBC (4.0-10.0) 10^3/ uL RBC (4.1-5.3) 10^6/u L Hgb (11.5-15.3) g/dL Hct (37.0-47.0) % MCV (81-99) fL MCH (28.0-34.0) pg MCHC (30.0-36.0) g/dL RDW (12.1-15.1) % Plt Count (130-400) 10^3/c mm MPV (7.4-10.4) fL Neut % (Auto) % Lymph % (Auto) % Jack % (Auto) % Eos % (Auto) % Baso % (Auto) % Neut # (Auto) (1.8-7.7) 10^3/u L Lymph # (Auto) (0.8-4.8) 10^3/u L Jack # (Auto) (0.2-0.9) 10^3/u L Eos # (Auto) (0.0-0.8) 10^3/u L Baso # (Auto) (0.0-0.1) 10^3/u L Nucleated RBC % (a uto) % Nucleated RBCs # /100WBC PT (12.1-14.9) SECO NDS INR (0.8-1.2) Fibrinogen (174-498) mg/dL D-Dimer (0-0.59) ug/mIFE U Specimen Type Sample Site ABG pH (7.35-7.45) ABG pCO2 (35-45) mmHg ABG pO2 (80.0-100.0) mmH g ABG HCO3 (22-26) mmol/L ABG Base Excess (-2.0-2.0) mmol/ L Danny Test Hematocrit (37-47) % O2 Delivery Device O2 Liters/Min % FiO2 % Terminal Press Operator ID Sodium (136-145) mmol/L Potassium (3.5-5.1) mmol/L Chloride (98-107) mmol/L Carbon Dioxide (22-29) mmol/L Anion Gap (5-19) BUN (8-23) mg/dL Creatinine (0.5-0.9) mg/dL GFR Calculation (90-130) mL/min Glucose (65-115) mg/dL Calculated Osmolal ity (285-295) mOsm/k g Lactic Acid (0.5-2.2) mmol/L Calcium (8.5-10.5) mg/dL Magnesium (1.7-2.3) mg/dL Ferritin (15-150) ng/mL Total Bilirubin (0.15-1.2) mg/dL AST (0-32) U/L ALT (0-33) U/L Alkaline Phosphata se (35-105) IU/L Lactate Dehydrogen ase (135-214) U/L Troponin T Gen 5 n g/L (0-10) ng/L C-Reactive Protein (0.0-4.9) mg/L NT-Pro-B Natriuret Pep (0-125) pg/mL Total Protein (6.6-8.7) g/dL Albumin (3.5-5.2) g/dL Globulin (1.3-4.6) g/dL Procalcitonin (0-0.5) ng/mL Influenza Type A A g Negative (Negative) Influenza Type B A g Negative (Negative) SARS-CoV-2 Ag (Rap id) Positive H (Negative) Discharge Plan Discharge Patient Disposition: Xfer Short-Term Hosp Clinical Impression: COVID-19 virus infection Referrals: Bernabe Cuellar DO [Primary Care Provider] - Discharge Date/Time: 03/08/20 21:25 Coding Level of Care Code ED Rock Dust Sprayer for Chg Fwd Exam Detailed
--- NOTE | 2020-03-08 13:55 | PC.NURSE ---
family updated as to pt's status and pt's plan of care
== END 2020-03-08 21:25 | disposition short-term general hospital (02) ==
PROVIDERS: Nurse Practitioner Family; Emergency Provider Family Medicine; PCP Internal Medicine
DX: U07.1 COVID-19 (principal); Z86.73 Personal history of transient ischemic attack (TIA), and cerebral infarction without residual deficits; F03.90 Unspecified dementia, unspecified severity, without behavioral disturbance, psychotic disturbance, mood disturbance, and anxiety; E78.5 Hyperlipidemia, unspecified; I10 Essential (primary) hypertension; G35 Multiple sclerosis; Z87.891 Personal history of nicotine dependence
CPT/HCPCS: 12345; 36600; 51702; 71045; 80053; 82728; 82803; 83605; 83615; 83735; 83880; 84145; 84484; 85025; 85378; 85384; 85610; 86140; 87426; 87804; 93005; 94660; 96374; 96375; 99284; 99291; J1100

== ENCOUNTER 2021-09-17 13:50 | Outpatient (CLI) | payer MEDICARE, MEDICAID, SELFPAY ==
--- NOTE | 2021-09-17 14:28 | XR_ITS ---
WS: [id number] SCREENING DEXA SCAN Back[facility] CLINICAL INFORMATION: POST MENOPAUSAL COMPARISON: June 29, 2015 FINDINGS: The L1-L4 bone mineral density measures 0.945 g/cm2. This corresponds to a T score score of -2.0 and Z score of -0.6. Left femoral neck bone mineral density measures 0.637 g/cm2. This corresponds to a T score of -2.9 an d Z score of -1.7. Right femoral neck bone mineral density measures 0.588 g/cm2. This corresponds to a T score -3.3of an d Z score of -2.1. Mean femoral neck bone mineral density measures 0.612 g/cm2. This corresponds to a T score of -3.1 an d Z score of -1.9. XR/XR DEXA axial skeleton* [id number] IMPRESSION: Osteopenia in the lumbar spine. Osteoporosis in the femoral necks. Patient's FRAX calculated 10 year probability for major osteoporotic fracture i s 32.8 % and osteoporotic hip fracture is 12.9%.
== END 2021-09-17 13:51 | disposition home or self-care (01) ==
LOC: RAD 14:05
PROVIDERS: PCP Internal Medicine; Visit Provider Internal Medicine
DX: N95.9 Unspecified menopausal and perimenopausal disorder (principal); M81.0 Age-related osteoporosis without current pathological fracture; M85.88 Other specified disorders of bone density and structure, other site
CPT/HCPCS: 77080

== ENCOUNTER 2021-11-03 10:42 | Emergency (ER) | payer MEDICARE, MEDICAID, SELFPAY ==
[2021-11-03 10:44] VITALS: BP 198/68; PULSE 66; RESP 16; TEMP 36.8; O2SAT 98; BMI 29.2
--- NOTE | 2021-11-03 10:45 | XRR_ITS ---
PROCEDURE INFORMATION: Exam: XR Right Shoulder Exam date and time: 11/03/2021 11:00 AM Age: 71 years old Clinical indication: Injury or trauma; Fall; Fracture, traumatic injury; Closed fracture; Humerus; Right; Additional info: Pain TECHNIQUE: Imaging protocol: XR Right shoulder. Views: 2 or more views. COMPARISON: CR XR chest 1V portable [id number] 03/08/2020 8:42 AM FINDINGS: Bones/joints: Mildly comminuted fracture of the right humeral head and neck, with mild displacement of fragments. No dislocation. Acromioclavicular joint intact. Soft tissues: Soft tissue swelling lateral to the fracture. XR/XR shoulder RT min 2V* [id number] IMPRESSION: Mildly comminuted and displaced fracture of the right humeral head and neck.
--- NOTE | 2021-11-03 11:26 | ED_ITS ---
HPI - Fall General: Chief Complaint: Fall Stated Complaint: fall R shoulder pain Time Seen by Provider: 11/03/21 10:43 Source: patient Mode of arrival: EMS Limitations: no limitations History of Present Illness: 71-year-old female with a history of CVA stumbled had a mechanical ground-level fall at home she caught her right shoulder against some furniture she went down she denies striking her head there is no loss consciousness. She is awake alert and oriented her only complaint is shoulder pain she has a splint on her right hand because of contractures from previous stroke. Complaining of pain at the level of the shoulder. complaint: fall Onset (ago): minute(s) Fall from: standing Place fall occurred: home Loss of consciousness: None Prolonged down time: no Symptoms prior to fall: none Context: tripped/slipped Location of injury - extremities: Right: shoulder Severity: moderate Associated symptoms-after fall: Denies abdominal pain, chest pain, confusion, difficulty walking, headache(s), hematuria, lightheadedness, neck pain, numbness, short of breath, vertigo or weakness Review of Systems Const: Denies: fever(s), chills, body aches, change in appetite, fatigue or malaise ENMT: Denies: throat pain, ear or mastoid pain, nasal discharge or nasal congestion Card: Denies: chest pain or lightheadedness Resp: Denies: dyspnea, productive cough or non-productive cough GI: Denies: abdominal pain : Denies: hematuria Musc: Denies: neck pain Skin/Breast: Denies: rash or pruritus Neuro: Denies: headache(s), difficulty walking, vertigo or confusion [facility] ED PFSH: Medical History Anemia CVA (cerebral vascular accident) -prior CVA with residual right sided weakness, decreased sensation -noted CT head reported as 5.8 cm subacute non-hemorrhagic infarct in left parietal lobe, stable left hemispheric encephalomalacia. MRI head reported as acute/subacute infarct involving L temporal lobe, numerous flow voids throughout the L cerebral hemisphere consistent with AVM. -Echo: EF=68%, G1DD, no RWMA, trace AR -carotid ultrasound with no significant stenosis -Telemetry monitoring -VSS -Fall/aspiration precautions -PT/ST/OT evaluations appreciated -Continue aspirin, statin added -Troponins noted with no significant delta -noted TSH, A1c, lipid panel Dementia GERD (gastroesophageal reflux disease) -on PPI Hemiplegia and hemiparesis following cerebral infarction affecting right dominant side HLD (hyperlipidemia) -lipid panel ordered -on statin HTN (hypertension) -VSS; continue to monitor -on BB Multiple sclerosis Overactive bladder Social History Smoking and tobacco status: former smoker Physical Exam Const: COMMON NORMALS: no acute distress GENERAL APPEARANCE: cooperative and comfortable ORIENTATION/CONSCIOUSNESS: Yes awake, Yes oriented to person, Yes oriented to place and Yes oriented to time HENMT: COMMON NORMALS: normocephalic, atraumatic and hearing grossly normal bilaterally HEAD & SCALP: normocephalic and atraumatic Eye: COMMON NORMALS: Equal, round and reactive pupils present, EOMs intact bilaterally, conjunctivae normal and no scleral icterus CONJUNCTIVA: Yes conjunctivae normal PUPIL: Yes Equal, round and reactive pupils present Neck/C-Spine: COMMON NORMALS: full ROM, no lymphadenopathy, supple and no JVD Resp: COMMON NORMALS: normal respiratory effort, No retractions, No use of accessory muscles and clear to auscultation bilaterally AUSCULTATION: clear to auscultation bilaterally Cardio: COMMON NORMALS: no JVD, regular rate, regular rhythm and No murmurs present (Cardio) RATE: regular rate RHYTHM: regular rhythm GI: COMMON NORMALS: Soft to palpation and No hepatosplenomegaly present AUSCULTATION: Yes normoactive bowel sounds PALPATION: Yes Soft to palpation, No Tenderness to palpation present (GI), No Guarding due to palpation present (GI) and Yes No hepatosplenomegaly present Extremity: OTHER: Right forearm and molded splint. Patient is splinting the upper arm against her body there is moderate swelling tenderness to palpation consistent with proximal humerus fracture Neuro: SENSORIUM/ORIENTATION: Yes oriented to person, Yes oriented to place and Yes oriented to time Skin: COMMON NORMALS: no rashes or lesions noted GENERAL SKIN EXAM: no rashes or lesions noted Course Vital Signs: Vital signs: Vital Signs Temperature 98.2 F 11/03/21 10:44 Pulse Rate 76 11/03/21 12:02 Respiratory Rate 16 11/03/21 10:44 Blood Pressure 197/72 11/03/21 12:02 Pulse Oximetry 94 11/03/21 12:02 MDM - Fall Medical Decision Making Proximal humerus fracture sling arm hydrocodone for pain follow-up with Ortho no use of the right arm. Medical Records I reviewed the patient's medical records. Lab Data I reviewed the patient's lab results. Radiology Impressions Shoulder X-Ray 11/03/21 10:45 IMPRESSION: Mildly comminuted and displaced fracture of the right humeral head and neck. Discharge Plan Discharge Patient Disposition: Home Clinical Impression: Fracture of head of humerus Condition: Stable Prescriptions: New hydrocodone-acetaminophen 5-325 mg tablet 1 tab PO Q6H PRN (Reason: pain) Qty: 15 0RF No Action azelastine 0.05 % Drops 1 drp OPHTHALMIC (EYE) BID PRN (Reason: unknown) 0RF acetaminophen 325 mg Tablet 650 mg PO Q6H PRN (Reason: unknown) 0RF Imodium A-D 2 mg Tablet 4 mg PO PRN 0RF Aspir-81 81 mg Tablet,Delayed Release (Dr/Ec) 81 mg PO DAILY 0RF erythromycin 5 mg/gram (0.5 %) Ointment See Rx Instructions .ROUTE .COMPLEX 0RF Rx Instructions: apply 1/3 ointment to both eyes at bedtime Nexium 40 mg Capsule,Delayed Release(Dr/Ec) 40 mg PO DAILY 0RF metoprolol tartrate 50 mg Tablet 50 mg PO Q12H 0RF Rx Instructions: hold med if bp less than 120/70 or heart rate less than 60 Colace 100 mg Capsule 100 mg PO DAILY PRN (Reason: unknown) 0RF loratadine 10 mg Tablet 10 mg PO DAILY PRN (Reason: Allergy Symptoms) 0RF Icy Hot 30-10 % Cream 1 applic TOPICAL BID PRN (Reason: unknown) 0RF Rx Instructions: may apply to neck,left shoulder and lower scalp baclofen 5 mg Tablet 5 mg PO TID PRN (Reason: unknown) 0RF [place] [facility] Ml Honey/Lemon Lz See Rx Instructions .ROUTE .COMPLEX 0RF Rx Instructions: use as directed prn Zofran 4 mg Tablet 4 mg PO Q6H PRN (Reason: Nausea) 0RF Travatan Z 0.004 % Drops 2 drp ophthalmic (eye) BEDTIME 0RF Refresh Tears 0.5 % Drops 1 - 2 drp ophthalmic (eye) PRN 0RF lisinopril 10 mg Tablet 10 mg PO DAILY 0RF Mucinex 600 mg Tablet Extended Release 12hr 600 mg PO BID PRN (Reason: unknown) 0RF Natural Balance Tears 1 drp ophthalmic (eye) QID 0RF sumatriptan succinate 25 mg Tablet 25 mg PO Q2H PRN (Reason: Migraine Headache) Qty: 30 0RF Discharge Orders: Discharge ED (Routine); Ordered 11/03/21 Ordered By: Kaushal Mcadams Referrals: Bernabe Cuellar DO [Primary Care Provider] - Patient Instructions: Opioid Safety Activity Restrictions/Additional Instructions: Case management make arrangements for you to follow-up with orthopedics for the right humerus fracture Coding Level of Care Code ED X Ray Control Equipment Repairer for Linn Bain
[2021-11-03 11:38] VITALS: BP 170/84; O2SAT 95
[2021-11-03 12:02] VITALS: BP 197/72; PULSE 76; O2SAT 94
--- NOTE | 2021-11-04 16:20 | DCPLANNER ---
Addendum entered by Laura Farias 11/07/21 15:09: Patient had a follow up appointment scheduled for 11.06.21 with ortho - patient did not attend appointment. Original Note: manager of application development had message to schedule a follow up appointment for patient with ortho. manager of application development sent patients information to the front office staff at orth. Patients information will be printed and reviewed. Clinic will call patient with appointment information.
== END 2021-11-03 11:59 | disposition home or self-care (01) ==
PROVIDERS: Emergency Provider Family Medicine; PCP Internal Medicine
DX: S42.291A Other displaced fracture of upper end of right humerus, initial encounter for closed fracture (principal); W01.190A Fall on same level from slipping, tripping and stumbling with subsequent striking against furniture, initial encounter; I69.351 Hemiplegia and hemiparesis following cerebral infarction affecting right dominant side; I10 Essential (primary) hypertension; Z87.891 Personal history of nicotine dependence
CPT/HCPCS: 73030; 99283

== ENCOUNTER 2021-11-11 10:54 | Outpatient (CLI) | payer MEDICARE, MEDICAID, SELFPAY ==
--- NOTE | 2021-11-11 11:14 | CT_ITS ---
WS: [id number] CT HEAD TECHNIQUE: Noncontrast CT of the head obtained from the skullbase to the vertex. CLINICAL INFORMATION: FALLING COMPARISON: MRI head December 09, [address] head December 08, 2019 DLP: 1022.[address] scans at [facility] use at least one of these dose optimization techniques: automated e xposure control; mA and/or kV adjustment per patient size (includes targeted exams where dose is matc hed to clinical indication); or iterative reconstruction. FINDINGS: No evidence of intracranial hemorrhage or acute mass effect. Scattered dystrophic calcification throu ghout the LEFT basal ganglia and LEFT inferior parietal, LEFT temporal, LEFT occipital lobes with num erous flow voids compatible with arteriovenous malformation. This is present dating back to 2009. Ass ociated encephalomalacia in the associated LEFT hemisphere and LEFT midbrain. Moderate small vessel changes. Moderate parenchymal volume loss. No extra-axial fluid collections. Ma stoid air cells well aerated. Paranasal sinuses are well aerated. Normal posterior nasopharynx. No hy drocephalus. CT/CT head wo con* [id number] IMPRESSION: 1. No evidence of intracranial hemorrhage or acute mass effect. 2. 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 Associated encephalomalacia. This is unchanged in appearance from recent examinations. AV malformation could be f urther evaluated with traditional angiography if not previously performed. 3. Moderate small vessel changes. Moderate parenchymal volume loss. Moderate v olume loss involving the LEFT midbrain unchanged. 4. No other changes from previous.
== END 2021-11-11 10:55 | disposition home or self-care (01) ==
LOC: RAD 11:02
PROVIDERS: PCP Internal Medicine; Visit Provider Internal Medicine
DX: S09.90XS Unspecified injury of head, sequela (principal); W19.XXXS Unspecified fall, sequela
CPT/HCPCS: 70450

== ENCOUNTER 2023-06-21 19:04 | Emergency (ER) | payer MEDICARE, MEDICAID, SELFPAY ==
[2023-06-21 19:06] VITALS: BP 140/71; PULSE 67; RESP 18; TEMP 36.5; O2SAT 100; BMI 28.3
--- NOTE | 2023-06-21 19:22 | CTR_ITS ---
PROCEDURE INFORMATION: Exam: CT Head Without Contrast Exam date and time: 06/21/2023 7:24 PM Age: 73 years old Clinical indication: Pain and injury or trauma; Blunt trauma (contusions or hematomas); Headache; Patient HX: EMS arrival from [facility] living for fall last night. Patient C/O ROSAS with n/v. History of left side CVA with calcifications. ; Additional info: Fall headache vomiting TECHNIQUE: Imaging protocol: Computed tomography of the head without contrast. Radiation optimization: All CT scans at this facility use at least one of these dose optimization techniques: automated exposure control; mA and/or kV adjustment per patient size (includes targeted exams where dose is matched to clinical indication); or iterative reconstruction. COMPARISON: CT head wo con* [id number] 11/11/2021 11:22 AM RADIATION DOSE METRICS: Total DLP (mGy-cm): 953.03 FINDINGS: Brain: Unchanged extensive dystrophic calcification throughout the left cerebral hemisphere with associated encephalomalacia/gliosis, likely sequela of remote infarct. No acute intracranial hemorrhage. No acute territorial region of foster-white dedifferentiation. No extra-axial collection. No mass effect or midline shift. Cerebral ventricles: No acute hyrocephalus. Paranasal sinuses: Visualized sinuses are well-aerated. No fluid levels. Mastoid air cells: Visualized mastoid air cells are well aerated. Orbital cavities: No acute abnormality. Bones/joints: No acute calvarial fracture. Soft tissues: No acute abnormality. CT/CT head wo con* [id number] IMPRESSION: 1. No acute intracranial hemorrhage or acute calvarial fracture. 2. Stable chronic findings as above.
--- NOTE | 2023-06-21 19:23 | W.ED.FALL ---
HPI - Fall General: Chief Complaint: Fall Stated Complaint: FALL Time Seen by Provider: 06/21/23 19:06 History of Present Illness: 73[facility] who has had a history of stroke affecting her right upper and lower extremity. She was in electric chair last night, when she fell and hit the floor. She believes she struck her head on the left side. She hurt her shoulder as well on that side. Associated symptoms-after fall: Reports headache(s); Denies abdominal pain, chest pain or neck pain Review of Systems Const: Denies: fever(s) Eyes: Denies: change in vision Card: Denies: chest pain Resp: Denies: dyspnea GI: Reports: nausea and vomiting; Denies: abdominal pain Musc: Denies: neck pain or back pain Neuro: Reports: headache(s) and dizziness (chronic) PFS ED PFSH: Medical History (Updated 06/21/23 @ 20:19 by Iker Theodore DO) GERD (gastroesophageal reflux disease) -on PPI Overactive bladder Anemia HLD (hyperlipidemia) -lipid panel ordered -on statin HTN (hypertension) -VSS; continue to monitor -on BB Multiple sclerosis Dementia Hemiplegia and hemiparesis following cerebral infarction affecting right dominant side CVA (cerebral vascular accident) -prior CVA with residual right sided weakness, decreased sensation -noted CT head reported as 5.8 cm subacute non-hemorrhagic infarct in left parietal lobe, stable left hemispheric encephalomalacia. MRI head reported as acute/subacute infarct involving L temporal lobe, numerous flow voids throughout the L cerebral hemisphere consistent with AVM. -Echo: EF=68%, G1DD, no RWMA, trace AR -carotid ultrasound with no significant stenosis -Telemetry monitoring -VSS -Fall/aspiration precautions -PT/ST/OT evaluations appreciated -Continue aspirin, statin added -Troponins noted with no significant delta -noted TSH, A1c, lipid panel Social History Smoking and tobacco/nicotine status: former use of tobacco/nicotine Physical Exam Const: COMMON NORMALS: no acute distress GENERAL APPEARANCE: cooperative; not ill appearing and not frail appearing HENMT: COMMON NORMALS: normocephalic and Normal external nose present HEAD & SCALP: normocephalic and contusion (with swelling left frontal-temporal) FACE & SINUS: normal facial exam and face symmetric NOSE: Normal external nose present Eye: COMMON NORMALS: Equal, round and reactive pupils present and EOMs intact bilaterally PUPIL: Yes Equal, round and reactive pupils present Neck/C-Spine: GENERAL: Yes trachea midline Chest: CHEST: Yes Symmetrical chest wall rise Resp: COMMON NORMALS: normal respiratory effort, No retractions, No use of accessory muscles and clear to auscultation bilaterally AUSCULTATION: clear to auscultation bilaterally Cardio: COMMON NORMALS: regular rate and regular rhythm RATE: regular rate RHYTHM: regular rhythm GI: COMMON NORMALS: Normal to inspection, nondistended, normoactive bowel sounds present Extremity: COMMON NORMALS: no pedal edema Neuro: DEDRICK COMA SCALE: document GCS findings [place] coma scale eye opening: Spontaneous [place] coma scale verbal response: Orientated [place] coma scale motor response: Obey commands [place] coma scale total score: 15 SENSORY EXAM: Yes extremities (intact) Psych: COMMON NORMALS: speech normal SPEECH: Yes normal speech Skin: COMMON NORMALS: no rashes or lesions noted GENERAL SKIN EXAM: no rashes or lesions noted Course Vital Signs: Vital signs: Vital Signs Temperature 97.7 F 06/21/23 19:06 Pulse Rate 66 06/21/23 21:29 Respiratory Rate 18 06/21/23 21:29 Blood Pressure 146/69 06/21/23 21:29 Pulse Oximetry 97 06/21/23 21:29 Oxygen Delivery Me thod Room Air 06/21/23 20:20 MDM - Fall Medical Decision Making Head CT is negative. Shoulder is nontender on exam, the patient moves both shoulders without pain. Vitals are stable here. She will be allowed [facility]. Lab Data Radiology Impressions Head CT 06/21/23 19:22 IMPRESSION: 1. No acute intracranial hemorrhage or acute calvarial fracture. 2. Stable chronic findings as above. All radiology interpretation(s) finalized by discharge Discharge Plan Discharge Patient Disposition: Home Clinical Impression: Concussion without loss of consciousness Condition: Stable Prescriptions: New ondansetron 4 mg tablet,disintegrating 4 mg PO Q6H PRN (Reason: nausea and vomiting) Qty: 14 0RF Discontinued ondansetron HCl [Zofran] 4 mg Tablet 4 mg PO Q6H PRN (Reason: Nausea) No Action azelastine 0.05 % Drops 1 drp OPHTHALMIC (EYE) BID PRN (Reason: unknown) acetaminophen 325 mg Tablet 650 mg PO Q6H PRN (Reason: unknown) Imodium A-D 2 mg Tablet 4 mg PO PRN Aspir-81 81 mg Tablet,Delayed Release (Dr/Ec) 81 mg PO DAILY erythromycin 5 mg/gram (0.5 %) Ointment See Rx Instructions .ROUTE .COMPLEX Rx Instructions: apply 1/3 ointment to both eyes at bedtime Nexium 40 mg Capsule,Delayed Release(Dr/Ec) 40 mg PO DAILY metoprolol tartrate 50 mg Tablet 50 mg PO Q12H Rx Instructions: hold med if bp less than 120/70 or heart rate less than 60 Colace 100 mg Capsule 100 mg PO DAILY PRN (Reason: unknown) loratadine 10 mg Tablet 10 mg PO DAILY PRN (Reason: Allergy Symptoms) Icy Hot 30-10 % Cream 1 applic TOPICAL BID PRN (Reason: unknown) Rx Instructions: may apply to neck,left shoulder and lower scalp baclofen 5 mg Tablet 5 mg PO TID PRN (Reason: unknown) [place] [facility] Ml Honey/Lemon Lz See Rx Instructions .ROUTE .COMPLEX Rx Instructions: use as directed prn Travatan Z 0.004 % Drops 2 drp ophthalmic (eye) BEDTIME Refresh Tears 0.5 % Drops 1 - 2 drp ophthalmic (eye) PRN lisinopril 10 mg Tablet 10 mg PO DAILY Mucinex 600 mg Tablet Extended Release 12hr 600 mg PO BID PRN (Reason: unknown) Natural Balance Tears 1 drp ophthalmic (eye) QID sumatriptan succinate 25 mg Tablet 25 mg PO Q2H PRN (Reason: Migraine Headache) Qty: 30 0RF hydrocodone-acetaminophen 5-325 mg tablet 1 tab PO Q6H PRN (Reason: pain) Qty: 15 0RF Discharge Orders: Discharge ED (Routine); Ordered 06/21/23 Ordered By: Iker Theodore Referrals: Bernabe Cuellar DO [Primary Care Provider] - 1-3 days Patient Instructions: Concussion (ED) Activity Restrictions/Additional Instructions: Symptoms despite treatment, change in mental status, other concerning symptoms. Coding Level of Care Code ED Link And Link Knitting Machine Operator for Linn Bain
[2023-06-21 20:20] VITALS: BP 147/68; PULSE 66; RESP 18; O2SAT 97
[2023-06-21 21:29] VITALS: BP 146/69; PULSE 66; RESP 18; O2SAT 97
== END 2023-06-21 21:31 | disposition home or self-care (01) ==
PROVIDERS: Emergency Provider Emergency Medicine; PCP Internal Medicine
DX: S06.0X0A Concussion without loss of consciousness, initial encounter (principal); Z79.82 Long term (current) use of aspirin; Z87.891 Personal history of nicotine dependence; E78.5 Hyperlipidemia, unspecified; I10 Essential (primary) hypertension; G35 Multiple sclerosis; F03.90 Unspecified dementia, unspecified severity, without behavioral disturbance, psychotic disturbance, mood disturbance, and anxiety; Z86.73 Personal history of transient ischemic attack (TIA), and cerebral infarction without residual deficits; I69.351 Hemiplegia and hemiparesis following cerebral infarction affecting right dominant side; V00.811A Fall from moving wheelchair (powered), initial encounter; Y92.129 Unspecified place in nursing home as the place of occurrence of the external cause
CPT/HCPCS: 70450; 99284

== ENCOUNTER 2024-03-22 14:56 | Outpatient (CLI) | payer MEDICARE, MEDICAID, SELFPAY ==
--- NOTE | 2024-03-22 15:00 | USCV_ITS ---
Lee Ann Leahy Age: 73 Gender: F : 1950 Exam Date: 03/22/2024 15:16 Ordering Phys: Diana Cosme Technologist: CT Exam Location: [facility]_ Indication: cfh BP: 130 / 80 HR: 76 Rhythm: Sinus Technical Quality: Adequate MEASUREMENTS (Male / Female) Normal Values 2D ECHO LVOT Diameter 2.0 cm LV Ejection Fraction MOD 4C 77.4 % LV Ejection Fraction MOD 2C 59.9 % LV Ejection Fraction 2C AL 59.8 % LA Diameter 3.6 cm RA Systolic Volume 4C AL 14.2 ml RA Systolic Volume 4C MOD 13.4 ml LA Sys Volume AL 25.4 cm cubed LA Sys Volume Index AL 13.1 cm cubed/m squared Aorta at Sinotubular Diameter 2.0 cm M-MODE LA Ao Ratio MM 1.5 AV Cusp Separation MM 1.8 cm DOPPLER AV Peak Velocity 134.0 cm/s LVOT Peak Velocity 118.0 cm/s AV Area Cont Eq vti 2.9 cm squared AV Area Cont Eq pk 2.9 cm squared MV Peak Velocity 82.0 cm/s MV Area PHT 2.9 cm squared TR Peak Velocity 221.0 cm/s TR Peak Gradient 19.5 mmHg TV Peak E Velocity 59.0 cm/s Right Atrial Pressure 3.0 mmHg Pulmonary Artery Systolic Pressu 22.5 mmHg PV Peak Velocity 109.0 cm/s FINDINGS Left Ventricle Normal left ventricular size, systolic function and wall thickness, with no regional wall motion abnormalities. Estimated LVEF normal 65%. Right Ventricle Normal right ventricular size and systolic function. Right Atrium Normal right atrial size. Left Atrium Normal left atrial size. Mitral Valve Thickened mitral valve. No mitral valve stenosis. No mitral valve regurgitation. Aortic Valve Thickened aortic valve. No aortic valve stenosis. No aortic valve regurgitation. Tricuspid Valve Structurally normal tricuspid valve. Trace tricuspid valve regurgitation. Normal right ventricle/right atrial pressure (22 mmHg). Pulmonic Valve Structurally normal pulmonic valve. Trace pulmonary valve regurgitation. Pericardium No pericardial effusion. Aorta Normal size aortic root and proximal ascending aorta. IVC Normal inferior vena cava. CONCLUSIONS Normal left ventricular function. Normal LVEF 65%. Normal chamber sizes. No significant valvular abnormality noted. Normal right heart and pulmonary pressures. Alicia Khan MD (Electronically Signed) Final Date: 22 March 2024 16:36 S
== END 2024-03-22 14:57 | disposition home or self-care (01) ==
LOC: RAD 14:57
PROVIDERS: PCP Physician Assistant; Visit Provider Physician Assistant
DX: I34.81 Nonrheumatic mitral (valve) annulus calcification (principal); I35.2 Nonrheumatic aortic (valve) stenosis with insufficiency; H53.123 Transient visual loss, bilateral
CPT/HCPCS: 93306

== ENCOUNTER 2024-04-18 14:17 | Outpatient (CLI) | payer MEDICARE, MEDICAID, SELFPAY ==
--- NOTE | 2024-04-18 14:18 | USCV_ITS ---
Lee Ann Leahy Age: 74 Gender: F : 1950 Exam Date: 04/18/2024 14:33 Ordering Phys: Diana Cosme Technologist: [place] [facility] [place]: hx of rt side cva Risk Factors: Previous Vascular Surgery: Right Brachial BP: / Left Brachial BP: / Right Left Velocity (cm/s) Spectral Plaque Velocity (cm/s) Spectral Plaque Syst/Diast Broadening Syst/Diast Broadening 80.40/ 19.40 Prox CCA 75.10 / 16.30 64.60/ 15.40 Mid CCA 65.60 / 17.70 53.80/ 15.30 Hetro Distal CCA 58.70 / 14.90 Hetro 82.90/ 31.50 Hetro Prox ICA 61.80 / 13.30 Hetro 65.10/ 29.50 Hetro Mid ICA 84.60 / 21.10 Hetro 61.10/ 27.50 Distal ICA 67.90 / 24.70 65.70 ECA 108.70 1.50 ICA/CCA 1.40 Antegrade Vertebral Antegrade 61.10/ 23.50 cm/s 95.10/ 44.40 cm/s Tri Subclavian Tri 42.50 70.70 FINDINGS Comparison:. 12/10/19 No significant elevation of systolic or diastolic velocities. Waveforms are normal. No significant amount of calcified plaque or intimal thickening identified. Minimal plaque. CONCLUSIONS Bilateral ICA stenosis less than 50%. Dr. Ondina Carvalho DO (Electronically Signed) Final Date: 18 April 2024 16:08 S
--- NOTE | 2024-04-18 14:18 | MR_ITS ---
WS: [id number] MRA CAROTID WITHOUT AND WITH GADOLINIUM ENHANCEMENT TECHNIQUE: Axial 2-D TOF and gadolinium bolus images obtained with axial images and axial, sagittal, and coronal 2-D reformatted images. CLINICAL INFORMATION: TRANSIENT MONOCULAR VISION LOSS COMPARISON: None. FINDINGS: Images are limited due to motion artifact and venous contamination RIGHT: RIGHT common carotid artery is patent. No significant RIGHT ICA stenosis. RIGHT ICA is patent to the skull base. LEFT: LEFT common carotid artery is patent. No significant LEFT ICA stenosis. LEFT ICA is patent to t he skull base. LEFT dominant vertebral artery. Smaller but patent RIGHT vertebral artery. Fusiform aneurysmal dilata tion of the distal LEFT vertebral artery measuring up to 1.4 cm at the C3 level. MR/MR angio neck w con* [id number] IMPRESSION: 1. Less than 50% cervical ICA stenosis bilaterally. 2. 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 This is similar in appearan ce to the prior cervical spine CT 2009 3. History of large LEFT cerebral hemisphere AVM partially visualized with num erous flow voids. 4. 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
== END 2024-04-18 14:18 | disposition home or self-care (01) ==
LOC: RAD 14:17
PROVIDERS: PCP Physician Assistant; Visit Provider Physician Assistant
DX: I72.6 Aneurysm of vertebral artery (principal); I72.5 Aneurysm of other precerebral arteries; I69.351 Hemiplegia and hemiparesis following cerebral infarction affecting right dominant side
CPT/HCPCS: 70548; 93880; A9577

== ENCOUNTER 2024-11-19 02:48 | Emergency (ER) | payer MEDICARE, MEDICAID, SELFPAY ==
--- NOTE | 2024-11-19 02:49 | CTR_ITS ---
PROCEDURE INFORMATION: Exam: CT Cervical Spine Without Contrast Exam date and time: 11/19/2024 3:11 AM Age: 74 years old Clinical indication: Injury or trauma; Blunt trauma; EMS arrival from [facility] for [facility] with headstrike. Hematoma to RT orbit. History of left side CVA with extensive calcifications. TECHNIQUE: Imaging protocol: Computed tomography of the cervical spine without contrast. Radiation optimization: All CT scans at this facility use at least one of these dose optimization techniques: automated exposure control; mA and/or kV adjustment per patient size (includes targeted exams where dose is matched to clinical indication); or iterative reconstruction. COMPARISON: No relevant prior studies available. RADIATION DOSE METRICS: Total DLP (mGy-cm): 377.3 FINDINGS: Bones: On axial CT images, no definite acute fracture is visible. Sagittal and coronal reconstructions show no acute fracture or subluxation. Mild to moderate degenerative disc changes and facet joint arthritis at multiple levels. Prominent anterior bridging osteophytes from C5 through C7. Suspect mild to moderate bulging/protruding discs at C3-C4 and C4-C5. MRI could be more specific/sensitive if clinically indicated. There is prominent tortuosity and dilation of the left vertebral artery, most prominent at the C3 and C4 levels where there is chronic enlargement of the foramen transversarium of the vertebral bodies. The artery measures up to 14-15 mm in diameter at these levels. An available report of MRA neck 04/18/2024 describes a similar appearance. Lungs: No significant acute finding in the upper lungs. CT/CT cervical spin wo con* [id number] IMPRESSION: 1. No definite acute fracture or subluxation by CT. 2. Degenerative/arthritic changes above. 3. Other findings discussed above.
--- NOTE | 2024-11-19 02:49 | CTR_ITS ---
PROCEDURE INFORMATION: Exam: CT Head Without Contrast Exam date and time: 11/19/2024 3:09 AM Age: 74 years old Clinical indication: Injury or trauma; Blunt trauma (contusions or hematomas); [facility]. Hematoma to RT orbit. History of left side CVA with extensive calcifications. TECHNIQUE: Imaging protocol: Computed tomography of the head without contrast. Radiation optimization: All CT scans at this facility use at least one of these dose optimization techniques: automated exposure control; mA and/or kV adjustment per patient size (includes targeted exams where dose is matched to clinical indication); or iterative reconstruction. COMPARISON: CT head wo con* [id number] 06/21/2023 7:24 PM RADIATION DOSE METRICS: Total DLP (mGy-cm): 984.45 FINDINGS: Brain: No acute intracranial hemorrhage or mass effect. There is decreased attenuation in the periventricular white matter, likely from microvascular disease. Apparent old infarcts again seen involving portions of the left temporal, parietal, and occipital regions. Extensive dystrophic calcifications again seen in these regions and in the left basal ganglia. No definite acute infarct by CT. MRI would be more sensitive/specific for detection, as clinically directed. Cerebral ventricles: Ventricle size is normal for age. Paranasal sinuses: Included paranasal sinuses are essentially clear. Mastoid air cells: No significant acute finding. Bones: No definite acute skull fracture. Soft tissues: Soft tissue swelling lateral to the right orbital region. Vasculature: Vascular calcifications in the internal carotid and vertebral basilar systems. CT/CT head wo con* [id number] IMPRESSION: 1. No acute intracranial hemorrhage or mass effect. 2. No definite acute infarct by CT, see above. 3. Chronic changes of old left-sided infarcts and dystrophic calcifications. 4. Other findings discussed above.
[2024-11-19 02:55] VITALS: BP 174/65; PULSE 87; RESP 18; TEMP 36.6; O2SAT 98; BMI 31.8
--- OUTSIDE RECORDS SUMMARY | 2024-11-19 03:17 | XMS_ITS | Encounter Summary ---
Author Organization [facility] Address [address] [place] [address] Care Team Providers Care Impact Hammer Operator Name Role Phone Unavailable Primary Care Provider Unavailabl e Encounter Details Date Type Department Care Team (Late st Contact Info) Description 12/07/2019 Lab Requisition [facility] Services [address] [place] [address] Bernabe Cuellar, [address] [facility] [address] [place] [address] Social History Tobacco Use Types Packs/Day Years Used Date Smoking Tobacco: Never Assessed Comments Unknown Sex and Gender Information Value Date Recorded Sex Assigned at Not on file Legal Sex Female 11:16 PM CDT Gender Identity Not on file Sexual Orientation Not on file documented as of this encounter Plan of Treatment Not on file documented as of this encounter Procedures Procedure Name Priority Date/Time Associated Diagnosis Comments IRON, TIBC, AND PERCENT SATURATION Routine 12/07/2019 8:48 AM CDT CBC WITH DIFFERENTIAL Routine 12/07/2019 8:48 AM CDT TSH Routine 12/07/2019 8:48 AM CDT FERRITIN Routine 12/07/2019 8:48 AM CDT BASIC METABOLIC PANEL Routine 12/07/2019 8:48 AM CDT documented in this encounter Results * (ABNORMAL) FERRITIN (12/07/2019 8:48 AM CDT) FERRITIN 232.0(H) 13.0 - 150.0 ng/mL 12/07/2019 2:50 PM CDT [facility] Blood Collection / Unknown 12/07/2019 8:48 AM CDT 12/07/2019 2:26 PM CDT Narrative [facility] - 12/07/2019 2:50 PM CDT Premenopausal Range 10-150 ng/mL Postmenopausal Range 10-291 ng/mL Bernabe Cuellar DO CHEMISTRY ORDERABLES Final Result Performing Organization Address City/[facility]/ZIP Co de Phone Number [address] [address] * (ABNORMAL) IRON, TIBC, AND PERCENT SATURATION (12/07/2019 8:48 AM CDT) IRON 79 37 - 145 ug/dL 12/07/2019 2:50 PM CDT [facility] TIBC 238(L) 250 - 450 ug/dL 12/07/2019 2:50 PM CDT [facility] IRON % SATURATION 33 15 - 60 % 12/07/2019 2:50 PM CDT [facility] Blood Collection / Unknown 12/07/2019 8:48 AM CDT 12/07/2019 2:26 PM CDT Bernabe Cuellar DO CHEMISTRY ORDERABLES Final Result Performing Organization Address [facility]/ZIP Co de Phone Number [address] [address] * TSH (12/07/2019 8:48 AM CDT) TSH 1.38 0.27 - 4.20 uIU/mL 12/07/2019 2:50 PM CDT [facility] Blood Collection / Unknown 12/07/2019 8:48 AM CDT 12/07/2019 2:26 PM CDT Bernabe Cuellar DO CHEMISTRY ORDERABLES Final Result [facility] [address] [place] [address] * (ABNORMAL) BASIC METABOLIC PANEL (12/07/2019 8:48 AM CDT) SODIUM 144 136 - 145 mmol/L 12/07/2019 2:50 PM CDT [facility] POTASSIUM 4.5 3.5 - 5.1 mmol/L 12/07/2019 2:50 PM CDT [facility] CHLORIDE 109(H) 98 - 107 mmol/L 12/07/2019 2:50 PM CDT [facility] CO2 22 22 - 29 mmol/L 12/07/2019 2:50 PM CDT [facility] CALCIUM 10.1 8.8 - 10.2 mg/dL 12/07/2019 2:50 PM CDT [facility] BUN 38(H) 8 - 23 mg/dL 12/07/2019 2:50 PM CDT [facility] CREATININE 1.43(H) 0.51 - 0.95 mg/dL 12/07/2019 2:50 PM CDT [facility] GLUCOSE 117(H) 74 - 99 mg/dL 12/07/2019 2:50 PM CDT [facility] GFR 37(L) >=60 mL/min/1. 73 sq meter 12/07/2019 2:50 PM CDT [facility] Comment: eGFR has not been validated for use in the elderly (> 70 years of age), women, patients with serious co-morbid conditions, or persons with extremes of body size or muscle mass and should also be interpreted with caution in patients with acute kidney failure, dialysis dependent patients, patients reporting exceptional dietary intake (e.g. vegetarian diet, high protein diets, creatine supplementation), and patients with severe liver disease. Based on National Kidney Disease Education Program If patient is , please refer to the GFR result. GFR, 44(L) >=60 mL/min/1. 73 sq meter 12/07/2019 2:50 PM CDT [facility] ANION GAP 13 9 - 20 mmol/L 12/07/2019 2:50 PM CDT [facility] Blood Collection / Unknown 12/07/2019 8:48 AM CDT 12/07/2019 2:26 PM CDT Bernabe Cuellar DO CHEMISTRY ORDERABLES Final Result [facility] [address] [place] [address] * (ABNORMAL) CBC WITH DIFFERENTIAL (12/07/2019 8:48 AM CDT) Pathologist [facility] WBC 9.0 4.8 - 10.8 K/uL 12/07/2019 2:27 PM CDT [facility] RBC 4.36 4.20 - 5.40 M/uL 12/07/2019 2:27 PM CDT [facility] HEMOGLOBIN 13.0 12.0 - 16.0 g/dL 12/07/2019 2:27 PM CDT [facility] HEMATOCRIT 40.8 36.0 - 46.0 % 12/07/2019 2:27 PM CDT [facility] MCV 93.6 84.0 - 103.0 fL 12/07/2019 2:27 PM CDT [facility] MCH 29.8 27.0 - 34.0 pg 12/07/2019 2:27 PM CDT [facility] MCHC 31.9 30.0 - 35.0 g/dL 12/07/2019 2:27 PM CDT [facility] RDW 13.3 11.0 - 14.5 % 12/07/2019 2:27 PM CDT [facility] RDW-STDEV 45.2 37.0 - 54.0 fL 12/07/2019 2:27 PM CDT [facility] PLATELETS 256 140 - 440 K/uL 12/07/2019 2:27 PM CDT [facility] MPV 10.4 8.9 - 12.8 fL 12/07/2019 2:27 PM CDT [facility] NEUTROPHILS 69 42 - 75 % 12/07/2019 2:27 PM CDT [facility] LYMPHOCYTES 19(L) 24 - 44 % 12/07/2019 2:27 PM CDT [facility] MONOCYTES 8 2 - 10 % 12/07/2019 2:27 PM CDT [facility] EOSINOPHILS 2 0 - 7 % 12/07/2019 2:27 PM CDT [facility] BASOPHILS 1 0 - 1 % 12/07/2019 2:27 PM CDT [facility] IMMATURE GRANULOCYTES 1 0 - 2 % 12/07/2019 2:27 PM CDT [facility] NEUTROPHIL ABSOLUTE 6.21 2.00 - 8.00 K/uL 12/07/2019 2:27 PM CDT [facility] LYMPHOCYTE ABSOLUTE 1.74 1.20 - 4.00 K/uL 12/07/2019 2:27 PM CDT [facility] MONOCYTE ABSOLUTE 0.73(H) 0.10 - 0.60 K/uL 12/07/2019 2:27 PM CDT [facility] EOSINOPHIL ABSOLUTE 0.19 0.00 - 0.70 K/uL 12/07/2019 2:27 PM CDT [facility] BASOPHILS ABSOLUTE 0.07 0.00 - 0.20 K/uL 12/07/2019 2:27 PM CDT [facility] IMMATURE GRANULOCYTES ABSOLUTE 0.05 0.00 - 0.10 K/uL 12/07/2019 2:27 PM CDT [facility] Blood Collection / Unknown 12/07/2019 8:48 AM CDT 12/07/2019 2:24 PM CDT us Bernabe Cuellar DO HEMATOLOGY ORDERABLES Final Result [facility] [address] [place] [address] documented in this encounter Visit Diagnoses Not on filedocumented in this encounter
--- OUTSIDE RECORDS SUMMARY | 2024-11-19 03:17 | XMS_ITS | Clinical Summary ---
Author Organization [facility] Address [address] [place] [address] Phone Care Team Providers Care Environmental Tech Name Role Phone Unavailable Primary Care Provider Unavailabl e Social History Tobacco Use Types Packs/Day Years Used Date Smoking Tobacco: Never Assessed Comments Unknown Sex and Gender Information Value Date Recorded Sex Assigned at Not on file Legal Sex Female 11:16 PM CDT Gender Identity Not on file Sexual Orientation Not on file Plan of Treatment Health Maintenance Due Date Last Done Comments DTAP/TDAP/TD VACCINES (1 - Tdap) 1971 BREAST CANCER SCREENING 1992 COLORECTAL SCREENING 1997 Colorectal Cancer Screening 1997 FIT-DNA Q 3 years 1997 FIT/FOBT Q 1 year 1997 Flex Sig/CT Colonography Q 5 years 1997 PNEUMOCOCCAL VACCINE 50+ YEARS (1 of 1 - PCV) 03/23/20 02 ZOSTER VACCINE (1 of 2) 2002 OSTEOPOROSIS SCREENING 2017 INFLUENZA VACCINE (#1) 2023 RSV VACCINE (60+ or ) (1 - 1-dose 75+ series) 2027 Insurance [employer] [id number] HMO
--- OUTSIDE RECORDS SUMMARY | 2024-11-19 03:17 | XMS_ITS | Continuity of Care Document ---
Author Organization [email or web address] [facility] ([facility]) Address [address] [place] [id number] Problems Condition ICD9 code ICD10 code SNOMED code Start Date End Date S tatus Hemiplegia and hemiparesis following cerebral infarction affecting right dominant side I69.351 10/20/2014 Active Unspecified injury of head, sequela S09.90XS 09/19/2014 Active History of falling Z91.81 10/19/2014 Ac tive Aphasia R47.01 08/28/2021 Active Essential (primary) hypertension I10 09/19/2014 Active Vascular dementia, unspecified severity, with mood disturbance F01.53 02/22/2022 Act iona Major depressive disorder, recurrent, moderate F33.1 09/24/2022 Active Migraine, unspecified, not intractable, without status migrainosus G43.909 12/14/2019 Active Multiple sclerosis G35 09/19/2014 Ac tive Pure hypercholesterolemia, unspecified E78.00 07/22/2016 Active Age-related osteoporosis without current pathological fracture M81.0 09/19/2014 Act iona Unspecified osteoarthritis, unspecified site M19.90 09/19/2014 Active detention (current) use of aspirin Z79.82 05/25/2018 Active Tension-type headache, unspecified, not intractable G44.209 12/06/2019 Active 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 09/19/2014 Active Dorsalgia, unspecified M54.9 09/19/2014 Active Unspecified acquired deformity of unspecified limb M21.90 09/19/2014 Active Gastro-esophageal reflux disease without esophagitis K21.9 09/19/2014 Active Other hereditary corneal dystrophies, 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 Refere nce Range COVID-19 Test Viral Antigen null flavor [null] 03/14/2024 05:00 PM See note NEG COVID-19 Test Viral Antigen COVID-19 Test Viral Antigen null flavor [null] 03/07/2024 05:00 PM See note NEG COVID-19 Test Viral Antigen COVID-19 Test Viral Antigen null flavor [null] 02/29/2024 05:00 PM See note NEG COVID-19 Test Viral Antigen COVID-19 Test Viral Antigen null flavor [null] 02/22/2024 05:00 PM See note NEG COVID-19 Test Viral Antigen COVID-19 Test Viral Antigen null flavor [null] 02/15/2024 05:00 PM See note NEG COVID-19 Test Viral Antigen COVID-19 Test Viral Antigen null flavor [null] 02/08/2024 05:00 PM See note NEG COVID-19 Test Viral Antigen Allergies, adverse reactions, alerts No known allergies and adverse reactions Immunizations Vaccine Route Date Status COVID-19 Vaccine Unassigned Route of Administration Completed COVID-19 Vaccine Unassigned Route of Administration Completed COVID-19 Vaccine Unassigned Route of Administration Completed COVID-19 Vaccine Unassigned Route of Administration Completed COVID-19 Vaccine Unassigned Route of Administration Completed COVID-19 Vaccine Unassigned Route of Administration Completed COVID-19 Vaccine Unassigned Route of Administration Completed COVID-19 Vaccine Unassigned Route of Administration Completed Influenza Vaccine Unassigned Route of Administration 1 Completed Influenza Vaccine Unassigned Route of Administration 1 Completed Influenza Vaccine Unassigned Route of Administration 1 Completed Influenza Vaccine Unassigned Route of Administration 1 Completed Influenza Vaccine Unassigned Route of Administration 1 05/28/2019 Completed Influenza Vaccine Unassigned Route of Administration 1 Completed Influenza Vaccine Unassigned Route of Administration 1 Completed Pneumococcal Vaccine Unassigned Route of Administratio n 2023 Completed Pneumococcal Vaccine Unassigned Route of Administratio n 12/20/2019 Completed Pneumococcal Vaccine Unassigned Route of Administratio n 03/31/2016 Completed RSV Vaccine Unassigned Route of Administration 2022 Completed Medications Medication Instructions Route Dosage Frequency Start Date Stop Date Indications Status acetaminophen 325 mg tablet (acetaminophen) 2 [id number] MG, oral, Every 6 Hours - PRN, Clinically Indicated due to Arthritic Pain oral 1.0 6.0 h 020 Active aspirin 81 mg tablet,chewable (aspirin) 1 tab, PO, Every day, 1 BY MOUTH DAILY, chew 1.0 1.0 d 019 Active atorvastatin 40 mg tablet (atorvastatin) 1 tab, oral, At Bedtime oral 1.0 020 Pure hypercholest erolemia, unspecified Active baclofen 5 mg tablet (baclofen) 1 tab, oral, Three Times A Day - PRN, Clinically Indicated due to Tension Headache oral 1.0 8.0 h 020 Active Biofreeze (menthol) (menthol) 4 % gel (Biofreeze (menthol) (menthol)) 1 application, topical, Twice A Day - PRN, special instructions: to joints PRN topical 1.0 12.0 h 023 Active Coreg (carvedilol) 6.25 mg tablet (Coreg (carvedilol)) 1 tab, oral, Twice A Day, clinical indication: high blood pressure oral 1.0 12.0 h 022 Active Flonase Allergy Relief (fluticasone propionate) 50 mcg/actuation spray,suspensio n (Flonase Allergy Relief (fluticasone propionate)) 1 spray, nasal, Once A Day - PRN, both nares nasal 1.0 1.0 d 024 Active Lasix (furosemide) 20 mg tablet (Lasix (furosemide)) 1 tab, oral, Once A Day oral 1.0 1.0 d 024 Active omeprazole 20 mg capsule,delayed release(DR/EC) (omeprazole) 1 cap, oral, Once A Day, clinical indication; GERD oral 1.0 1.0 d 022 Active potassium chloride 20 mEq tablet extended release (potassium chloride) 1, oral, Once A Day, Take with lasix oral 1.0 1.0 d 024 Active Systane (propylene glycol) (peg 400-propylene glycol) 0.4-0.3 % drops (Systane (propylene glycol) (peg 400-propylene glycol)) 1 drop, both eyes, Three Times A Day 1.0 8.0 h 024 Active Lexapro (escitalopram oxalate) 5 mg tablet (Lexapro (escitalopram oxalate)) 1 tab, oral, Once A Day, clinical indication: anxiety oral 1.0 1.0 d 025 Active Vital Signs Date Vital Result Comment 05/03/2024 06:58 PM Heart Rate (8867-4) 76 /min Blood Pressure Systolic (8480-6) 139 mm[Hg] Blood Pressure Diastolic (8462-4) 75 mm[Hg] 05/03/2024 09:19 AM Body Weight (28832-8) 163.4 [lb_av ] Body Mass Index (38231-3) 28.94 kg/m2 05/03/2024 07:28 AM Heart Rate (8867-4) 71 /min Blood Pressure Systolic (8480-6) 104 mm[Hg] Blood Pressure Diastolic (8462-4) 58 mm[Hg] 05/02/2024 09:18 PM Heart Rate (8867-4) 81 /min Blood Pressure Systolic (8480-6) 147 mm[Hg] Blood Pressure Diastolic (8462-4) 62 mm[Hg] 05/02/2024 09:43 AM Body Weight (94077-9) 168.6 [lb_av ] Body Mass Index (36349-2) 29.86 kg/m2 05/02/2024 07:31 AM Heart Rate (8867-4) 81 /min Blood Pressure Systolic (8480-6) 116 mm[Hg] Blood Pressure Diastolic (8462-4) 62 mm[Hg] 05/01/2024 07:24 PM Heart Rate (8867-4) 71 /min Blood Pressure Systolic (8480-6) 119 mm[Hg] Blood Pressure Diastolic (8462-4) 68 mm[Hg] 05/01/2024 11:32 AM Body Weight (24297-3) 166.7 [lb_av ] Body Mass Index (80775-6) 29.53 kg/m2 05/01/2024 08:42 AM Heart Rate (8867-4) 79 /min Blood Pressure Systolic (8480-6) 124 mm[Hg] Blood Pressure Diastolic (8462-4) 72 mm[Hg] 04/30/2024 07:23 PM Heart Rate (8867-4) 71 /min Blood Pressure Systolic (8480-6) 119 mm[Hg] Blood Pressure Diastolic (8462-4) 71 mm[Hg] 04/30/2024 09:10 AM Body Weight (91983-6) 167 [lb_av] Body Mass Index (82840-4) 29.58 kg/m2 04/30/2024 09:01 AM Heart Rate (8867-4) 82 /min Blood Pressure Systolic (8480-6) 123 mm[Hg] Blood Pressure Diastolic (8462-4) 74 mm[Hg] 04/29/2024 07:02 PM Heart Rate (8867-4) 74 /min Blood Pressure Systolic (8480-6) 133 mm[Hg] Blood Pressure Diastolic (8462-4) 71 mm[Hg] 04/29/2024 08:53 AM Body Weight (28995-2) 165.6 [lb_av ] Body Mass Index (64635-5) 29.33 kg/m2 04/29/2024 07:57 AM Heart Rate (8867-4) 80 /min Blood Pressure Systolic (8480-6) 126 mm[Hg] Blood Pressure Diastolic (8462-4) 60 mm[Hg] 04/28/2024 09:15 AM Body Weight (71940-0) 165.4 [lb_av ] Body Mass Index (19103-2) 29.3 kg/m2 04/27/2024 09:38 AM Body Weight (97807-2) 163.2 [lb_av ] Body Mass Index (08994-7) 28.91 kg/m2 04/27/2024 06:44 AM Temperature (8310-5) 98 [degF] Oxygen Saturation (52075-4) 90 % Respiratory Rate (9279-1) 18 /min 04/26/2024 09:34 AM Body Weight (16875-7) 163.2 [lb_av ] Body Mass Index (98811-7) 28.91 kg/m2 04/25/2024 09:01 AM Body Weight (62765-1) 162.4 [lb_av ] Body Mass Index (20141-4) 28.76 kg/m2 04/24/2024 10:02 AM Body Weight (52946-6) 163.6 [lb_av ] Body Mass Index (79677-9) 28.98 kg/m2 04/23/2024 09:26 AM Body Weight (17772-0) 163.8 [lb_av ] Body Mass Index (66780-2) 29.01 kg/m2 04/22/2024 07:40 AM Body Weight (09472-4) 163.2 [lb_av ] Body Mass Index (97406-4) 28.91 kg/m2 04/21/2024 09:20 AM Body Weight (38608-6) 167 [lb_av] Body Mass Index (25379-4) 29.58 kg/m2 04/20/2024 08:27 AM Temperature (8310-5) 98.7 [degF] Oxygen Saturation (17680-6) 93 % Respiratory Rate (9279-1) 18 /min 04/20/2024 08:26 AM Body Weight (98069-7) 162.8 [lb_av ] Body Mass Index (69205-3) 28.84 kg/m2 04/19/2024 08:32 AM Body Weight (59621-4) 163.8 [lb_av ] Body Mass Index (34792-8) 29.01 kg/m2 04/18/2024 06:39 AM Body Weight (35973-4) 164.2 [lb_av ] Body Mass Index (50619-4) 29.08 kg/m2 04/17/2024 10:53 AM Body Weight (34064-8) 166.4 [lb_av ] Body Mass Index (74627-0) 29.47 kg/m2 04/16/2024 04:28 PM Body Weight (71886-0) 166.2 [lb_av ] Body Mass Index (39715-9) 29.44 kg/m2 04/15/2024 04:09 PM Body Weight (92308-2) 166.2 [lb_av ] Body Mass Index (85054-5) 29.44 kg/m2 04/14/2024 06:46 AM Body Weight (42844-1) 163.4 [lb_av ] Body Mass Index (26630-8) 28.94 kg/m2 04/13/2024 12:20 PM Body Weight (26018-7) 166.6 [lb_av ] Body Mass Index (32237-6) 29.51 kg/m2 04/13/2024 09:18 AM Temperature (8310-5) 98.2 [degF] Oxygen Saturation (21666-2) 96 % Respiratory Rate (9279-1) 16 /min 04/12/2024 11:19 AM Body Weight (88510-6) 166.2 [lb_av ] Body Mass Index (89417-9) 29.44 kg/m2 04/11/2024 09:55 AM Body Weight (03019-6) 167 [lb_av] Body Mass Index (72197-9) 29.58 kg/m2 04/10/2024 04:03 PM Body Weight (32431-6) 167.1 [lb_av ] Body Mass Index (55702-4) 29.6 kg/m2 04/09/2024 04:23 PM Body Weight (16117-5) 167.4 [lb_av ] Body Mass Index (39156-0) 29.65 kg/m2 04/08/2024 03:27 PM Body Weight (23166-2) 167.2 [lb_av ] Body Mass Index (83965-2) 29.61 kg/m2 04/07/2024 11:07 AM Body Weight (13811-1) 164.2 [lb_av ] Body Mass Index (29234-0) 29.08 kg/m2 04/06/2024 09:47 AM Temperature (8310-5) 98.1 [degF] Oxygen Saturation (56119-9) 97 % Respiratory Rate (9279-1) 17 /min Body Weight (14142-1) 164.8 [lb_av] Body Mass Index (85640-4) 29.19 kg/m2 04/05/2024 07:21 AM Body Weight (95702-5) 163.8 [lb_av ] Body Mass Index (69920-9) 29.01 kg/m2 04/04/2024 05:13 PM Body Weight (21785-5) 167.8 [lb_av ] Body Mass Index (34942-1) 29.72 kg/m2 04/02/2024 03:27 PM Body Weight (87628-4) 172.1 [lb_av ] Body Mass Index (58235-8) 30.48 kg/m2 04/01/2024 03:02 PM Body Weight (46222-0) 172.8 [lb_av ] Body Mass Index (73638-7) 30.61 kg/m2 03/31/2024 04:38 PM Body Weight (87312-1) 173.2 [lb_av ] Body Mass Index (50455-6) 30.68 kg/m2 03/30/2024 01:50 PM Body Weight (43309-1) 173.2 [lb_av ] Body Mass Index (80078-1) 30.68 kg/m2 03/30/2024 10:41 AM Temperature (8310-5) 97.6 [degF] Oxygen Saturation (64417-2) 95 % Respiratory Rate (9279-1) 16 /min 03/29/2024 05:46 PM Body Weight (66873-1) 168 [lb_av] Body Mass Index (18083-7) 29.76 kg/m2 03/28/2024 01:15 PM Body Weight (43268-7) 167.4 [lb_av ] Body Mass Index (79533-2) 29.65 kg/m2 03/27/2024 08:34 AM Body Weight (12098-0) 162.6 [lb_av ] Body Mass Index (41960-3) 28.8 kg/m2 03/26/2024 03:00 PM Body Weight (58699-8) 162.2 [lb_av ] Body Mass Index (88271-4) 28.73 kg/m2 03/25/2024 11:31 AM Body Weight (52137-9) 162 [lb_av] Body Mass Index (94370-1) 28.69 kg/m2 03/24/2024 11:29 PM Temperature (8310-5) 99.3 [degF] 03/24/2024 03:21 PM Body Weight (51875-8) 163.1 [lb_av ] Body Mass Index (52178-2) 28.89 kg/m2 03/24/2024 10:42 AM Temperature (8310-5) 99.9 [degF] 2024 10:56 PM Temperature (8310-5) 98.3 [degF] 2024 09:53 AM Temperature (8310-5) 98.6 [degF] Oxygen Saturation (80188-7) 93 % Respiratory Rate (9279-1) 16 /min 2024 09:49 AM Temperature (8310-5) 98.6 [degF] Body Weight (00571-9) 163.2 [lb_av] Body Mass Index (99955-1) 28.91 kg/m2 03/22/2024 09:01 AM Body Weight (50467-1) 162.6 [lb_av ] Body Mass Index (43367-9) 28.8 kg/m2 03/21/2024 12:18 PM Body Weight (07812-9) 164.8 [lb_av ] Body Mass Index (60995-3) 29.19 kg/m2 03/19/2024 06:59 PM Body Weight (67911-8) 166.2 [lb_av ] Body Mass Index (48777-2) 29.44 kg/m2 03/16/2024 11:24 AM Body Weight (93192-1) 163.4 [lb_av ] Body Mass Index (08604-4) 28.94 kg/m2 03/16/2024 09:27 AM Oxygen Saturation (42027-3) 98 % Respiratory Rate (9279-1) 16 /min 03/14/2024 10:19 AM Body Weight (26668-1) 161.8 [lb_av ] Body Mass Index (40528-8) 28.66 kg/m2 03/13/2024 04:14 PM Body Weight (66722-1) 161 [lb_av] Body Mass Index (69784-2) 28.52 kg/m2 03/12/2024 04:00 PM Body Weight (38271-3) 161.2 [lb_av ] Body Mass Index (62958-6) 28.55 kg/m2 03/11/2024 10:34 AM Body Weight (91809-9) 161.4 [lb_av ] Body Mass Index (02915-0) 28.59 kg/m2 03/10/2024 03:31 PM Body Weight (67054-5) 162.8 [lb_av ] Body Mass Index (05980-2) 28.84 kg/m2 03/09/2024 12:09 PM Body Weight (41972-0) 164.4 [lb_av ] Body Mass Index (67272-0) 29.12 kg/m2 03/09/2024 09:29 AM Oxygen Saturation (83752-4) 92 % Respiratory Rate (9279-1) 18 /min 03/08/2024 04:12 PM Body Weight (75446-0) 165 [lb_av] Body Mass Index (72366-8) 29.23 kg/m2 03/07/2024 08:59 AM Body Weight (29117-2) 165.4 [lb_av ] Body Mass Index (65426-1) 29.3 kg/m2 03/06/2024 03:40 PM Body Weight (34090-8) 164.8 [lb_av ] Body Mass Index (03475-3) 29.19 kg/m2 03/05/2024 04:32 PM Body Weight (37286-0) 165.9 [lb_av ] Body Mass Index (67491-4) 29.38 kg/m2 03/04/2024 03:01 PM Body Weight (61984-9) 165.6 [lb_av ] Body Mass Index (98752-4) 29.33 kg/m2 03/03/2024 08:45 AM Body Weight (96331-8) 163 [lb_av] Body Mass Index (28494-5) 28.87 kg/m2 03/02/2024 10:30 AM Oxygen Saturation (39600-0) 98 % Respiratory Rate (9279-1) 17 /min Body Weight (49057-6) 162.2 [lb_av] Body Mass Index (51256-4) 28.73 kg/m2 02/29/2024 12:55 PM Body Weight (36959-5) 165.8 [lb_av ] Body Mass Index (39403-7) 29.37 kg/m2 02/28/2024 11:25 AM Body Weight (29853-7) 163.6 [lb_av ] Body Mass Index (09202-4) 28.98 kg/m2 02/27/2024 04:11 PM Body Weight (66693-2) 163 [lb_av] Body Mass Index (59480-3) 28.87 kg/m2 02/26/2024 10:53 AM Body Weight (82620-8) 163 [lb_av] Body Mass Index (07538-9) 28.87 kg/m2 02/25/2024 10:12 AM Body Weight (93887-6) 163.2 [lb_av ] Body Mass Index (80799-7) 28.91 kg/m2 02/24/2024 02:20 PM Body Weight (65441-0) 163 [lb_av] Body Mass Index (49221-3) 28.87 kg/m2 02/24/2024 02:13 PM Oxygen Saturation (37498-9) 97 % Respiratory Rate (9279-1) 16 /min 02/23/2024 07:39 AM Body Weight (76713-0) 162.4 [lb_av ] Body Mass Index (75928-2) 28.76 kg/m2 02/22/2024 10:03 AM Body Weight (78664-2) 163.4 [lb_av ] Body Mass Index (36214-7) 28.94 kg/m2 02/21/2024 02:30 PM Body Weight (00107-9) 162.8 [lb_av ] Body Mass Index (01746-3) 28.84 kg/m2 02/20/2024 11:21 AM Body Weight (00817-0) 162.2 [lb_av ] Body Mass Index (37537-7) 28.73 kg/m2 02/19/2024 12:23 PM Body Weight (09405-3) 165 [lb_av] Body Mass Index (85332-1) 29.23 kg/m2 02/18/2024 03:11 PM Body Weight (40485-9) 163.6 [lb_av ] Body Mass Index (87501-9) 28.98 kg/m2 02/17/2024 11:16 AM Body Weight (54090-1) 159.6 [lb_av ] Body Mass Index (47746-6) 28.27 kg/m2 02/15/2024 09:03 AM Body Weight (41210-1) 160.8 [lb_av ] Body Mass Index (05164-0) 28.48 kg/m2 02/14/2024 02:16 PM Body Weight (22626-1) 160 [lb_av] Body Mass Index (88441-0) 28.34 kg/m2 02/13/2024 03:11 PM Body Weight (00799-9) 158.9 [lb_av ] Body Mass Index (69679-3) 28.14 kg/m2 02/12/2024 09:00 AM Body Weight (03958-4) 158.4 [lb_av ] Body Mass Index (40147-4) 28.06 kg/m2 02/11/2024 08:32 AM Body Weight (88769-4) 158.8 [lb_av ] Body Mass Index (74166-7) 28.13 kg/m2 02/10/2024 09:48 AM Body Weight (78401-8) 159.2 [lb_av ] Body Mass Index (15843-8) 28.2 kg/m2 02/09/2024 11:46 AM Body Weight (02796-4) 159.6 [lb_av ] Body Mass Index (34187-3) 28.27 kg/m2 02/08/2024 09:52 AM Body Weight (79377-3) 162.6 [lb_av ] Body Mass Index (96818-1) 28.8 kg/m2 02/07/2024 05:44 PM Body Weight (58722-1) 162.1 [lb_av ] Body Mass Index (84453-0) 28.71 kg/m2 02/06/2024 01:55 PM Body Weight (04756-1) 162.6 [lb_av ] Body Mass Index (67146-3) 28.8 kg/m2 02/05/2024 04:29 PM Body Weight (60580-3) 162.2 [lb_av ] Body Mass Index (86880-8) 28.73 kg/m2 02/04/2024 12:04 PM Body Weight (82040-2) 160 [lb_av] Body Mass Index (36938-5) 28.34 kg/m2 09/23/2018 09:58 AM Body Height (8302-2) 63 [in_us] 05/04/2024 09:36 AM Temperature (8310-5) 98 [degF] Oxygen Saturation (22509-4) 93 % Respiratory Rate (9279-1) 16 /min Heart Rate (8867-4) 83 /min Body Weight (70982-9) 163.2 [lb_av] Body Mass Index (73330-3) 28.91 kg/m2 05/04/2024 06:52 AM Heart Rate (8867-4) 83 /min Blood Pressure Systolic (8480-6) 171 mm[Hg] Blood Pressure Diastolic (8462-4) 68 mm[Hg] 05/04/2024 06:55 PM Heart Rate (8867-4) 82 /min Blood Pressure Systolic (8480-6) 136 mm[Hg] Blood Pressure Diastolic (8462-4) 71 mm[Hg] 05/06/2024 11:20 AM Body Weight (22633-2) 166.4 [lb_av ] Body Mass Index (83564-5) 29.47 kg/m2 05/06/2024 08:22 AM Heart Rate (8867-4) 79 /min Blood Pressure Systolic (8480-6) 118 mm[Hg] Blood Pressure Diastolic (8462-4) 69 mm[Hg] 05/05/2024 06:54 PM Heart Rate (8867-4) 76 /min Blood Pressure Systolic (8480-6) 129 mm[Hg] Blood Pressure Diastolic (8462-4) 68 mm[Hg] 05/05/2024 09:20 AM Body Weight (81678-6) 163.2 [lb_av ] Body Mass Index (84429-2) 28.91 kg/m2 05/05/2024 08:53 AM Heart Rate (8867-4) 82 /min Blood Pressure Systolic (8480-6) 121 mm[Hg] Blood Pressure Diastolic (8462-4) 62 mm[Hg] 05/07/2024 09:29 AM Heart Rate (8867-4) 76 /min Blood Pressure Systolic (8480-6) 117 mm[Hg] Blood Pressure Diastolic (8462-4) 59 mm[Hg] 05/06/2024 07:12 PM Heart Rate (8867-4) 68 /min Blood Pressure Systolic (8480-6) 122 mm[Hg] Blood Pressure Diastolic (8462-4) 73 mm[Hg] 05/08/2024 01:17 PM Body Weight (87903-0) 166.2 [lb_av ] Body Mass Index (33334-1) 29.44 kg/m2 05/08/2024 11:27 AM Heart Rate (8867-4) 77 /min Blood Pressure Systolic (8480-6) 133 mm[Hg] Blood Pressure Diastolic (8462-4) 68 mm[Hg] 05/07/2024 07:02 PM Heart Rate (8867-4) 71 /min Blood Pressure Systolic (8480-6) 122 mm[Hg] Blood Pressure Diastolic (8462-4) 64 mm[Hg] 05/07/2024 04:18 PM Body Weight (91062-2) 166 [lb_av] Body Mass Index (02030-4) 29.4 kg/m2 05/08/2024 07:19 PM Heart Rate (8867-4) 73 /min Blood Pressure Systolic (8480-6) 124 mm[Hg] Blood Pressure Diastolic (8462-4) 66 mm[Hg] 05/10/2024 07:16 AM Heart Rate (8867-4) 81 /min Blood Pressure Systolic (8480-6) 123 mm[Hg] Blood Pressure Diastolic (8462-4) 57 mm[Hg] 05/09/2024 08:18 PM Heart Rate (8867-4) 77 /min Blood Pressure Systolic (8480-6) 127 mm[Hg] Blood Pressure Diastolic (8462-4) 68 mm[Hg] 05/09/2024 08:48 AM Body Weight (07106-7) 163.2 [lb_av ] Body Mass Index (58602-4) 28.91 kg/m2 05/09/2024 08:12 AM Heart Rate (8867-4) 83 /min Blood Pressure Systolic (8480-6) 113 mm[Hg] Blood Pressure Diastolic (8462-4) 53 mm[Hg] 05/10/2024 07:29 PM Heart Rate (8867-4) 86 /min Blood Pressure Systolic (8480-6) 156 mm[Hg] Blood Pressure Diastolic (8462-4) 93 mm[Hg] 05/10/2024 10:17 AM Body Weight (68253-9) 161.8 [lb_av ] Body Mass Index (81099-7) 28.66 kg/m2 05/12/2024 06:29 AM Heart Rate (8867-4) 76 /min Blood Pressure Systolic (8480-6) 112 mm[Hg] Blood Pressure Diastolic (8462-4) 54 mm[Hg] 05/11/2024 07:29 PM Heart Rate (8867-4) 85 /min Blood Pressure Systolic (8480-6) 158 mm[Hg] Blood Pressure Diastolic (8462-4) 80 mm[Hg] 05/11/2024 12:21 PM Temperature (8310-5) 98.5 [degF] Oxygen Saturation (48062-3) 94 % Respiratory Rate (9279-1) 16 /min Heart Rate (8867-4) 89 /min Blood Pressure Systolic (8480-6) 157 mm[Hg] Blood Pressure Diastolic (8462-4) 85 mm[Hg] Body Weight (82945-0) 163.2 [lb_av] Body Mass Index (82519-1) 28.91 kg/m2 05/12/2024 08:00 PM Heart Rate (8867-4) 75 /min Blood Pressure Systolic (8480-6) 127 mm[Hg] Blood Pressure Diastolic (8462-4) 60 mm[Hg] 05/12/2024 10:30 AM Body Weight (86577-6) 163.2 [lb_av ] Body Mass Index (16129-8) 28.91 kg/m2 05/13/2024 07:07 PM Heart Rate (8867-4) 71 /min Blood Pressure Systolic (8480-6) 122 mm[Hg] Blood Pressure Diastolic (8462-4) 68 mm[Hg] 05/13/2024 11:26 AM Body Weight (52150-8) 163.2 [lb_av ] Body Mass Index (27748-1) 28.91 kg/m2 05/13/2024 08:15 AM Heart Rate (8867-4) 74 /min Blood Pressure Systolic (8480-6) 118 mm[Hg] Blood Pressure Diastolic (8462-4) 64 mm[Hg] 05/14/2024 02:15 PM Body Weight (18688-8) 165.8 [lb_av ] Body Mass Index (17005-8) 29.37 kg/m2 05/14/2024 09:10 AM Heart Rate (8867-4) 77 /min Blood Pressure Systolic (8480-6) 152 mm[Hg] Blood Pressure Diastolic (8462-4) 88 mm[Hg] 05/14/2024 06:59 PM Heart Rate (8867-4) 67 /min Blood Pressure Systolic (8480-6) 138 mm[Hg] Blood Pressure Diastolic (8462-4) 72 mm[Hg] 05/15/2024 10:27 PM Heart Rate (8867-4) 71 /min Blood Pressure Systolic (8480-6) 128 mm[Hg] Blood Pressure Diastolic (8462-4) 62 mm[Hg] 05/15/2024 04:20 PM Body Weight (68714-3) 165.2 [lb_av ] Body Mass Index (32145-3) 29.26 kg/m2 05/15/2024 08:18 AM Heart Rate (8867-4) 77 /min Blood Pressure Systolic (8480-6) 145 mm[Hg] Blood Pressure Diastolic (8462-4) 64 mm[Hg] 05/16/2024 08:00 AM Body Weight (04764-3) 164.2 [lb_av ] Body Mass Index (28229-0) 29.08 kg/m2 05/16/2024 06:25 AM Heart Rate (8867-4) 73 /min Blood Pressure Systolic (8480-6) 119 mm[Hg] Blood Pressure Diastolic (8462-4) 63 mm[Hg] 05/17/2024 09:38 AM Body Weight (42812-7) 164.2 [lb_av ] Body Mass Index (92382-6) 29.08 kg/m2 05/17/2024 08:26 AM Heart Rate (8867-4) 78 /min Blood Pressure Systolic (8480-6) 140 mm[Hg] Blood Pressure Diastolic (8462-4) 71 mm[Hg] 05/16/2024 07:56 PM Heart Rate (8867-4) 73 /min Blood Pressure Systolic (8480-6) 143 mm[Hg] Blood Pressure Diastolic (8462-4) 63 mm[Hg] 05/18/2024 08:49 AM Body Weight (49526-4) 164 [lb_av] Body Mass Index (27748-6) 29.05 kg/m2 05/18/2024 06:45 AM Heart Rate (8867-4) 78 /min Blood Pressure Systolic (8480-6) 120 mm[Hg] Blood Pressure Diastolic (8462-4) 58 mm[Hg] 05/18/2024 06:42 AM Temperature (8310-5) 98.7 [degF] Oxygen Saturation (77696-3) 97 % Respiratory Rate (9279-1) 16 /min Heart Rate (8867-4) 78 /min Blood Pressure Systolic (8480-6) 120 mm[Hg] Blood Pressure Diastolic (8462-4) 58 mm[Hg] 05/17/2024 07:28 PM Heart Rate (8867-4) 84 /min Blood Pressure Systolic (8480-6) 152 mm[Hg] Blood Pressure Diastolic (8462-4) 79 mm[Hg] 05/18/2024 08:10 PM Heart Rate (8867-4) 82 /min Blood Pressure Systolic (8480-6) 141 mm[Hg] Blood Pressure Diastolic (8462-4) 70 mm[Hg] 05/19/2024 06:54 PM Heart Rate (8867-4) 69 /min Blood Pressure Systolic (8480-6) 126 mm[Hg] Blood Pressure Diastolic (8462-4) 64 mm[Hg] 05/19/2024 04:56 PM Body Weight (56748-4) 163 [lb_av] Body Mass Index (77662-4) 28.87 kg/m2 05/19/2024 08:28 AM Heart Rate (8867-4) 77 /min Blood Pressure Systolic (8480-6) 142 mm[Hg] Blood Pressure Diastolic (8462-4) 69 mm[Hg] 05/20/2024 09:08 AM Body Weight (38899-9) 164.6 [lb_av ] Body Mass Index (05235-4) 29.15 kg/m2 05/20/2024 06:37 AM Heart Rate (8867-4) 78 /min Blood Pressure Systolic (8480-6) 116 mm[Hg] Blood Pressure Diastolic (8462-4) 52 mm[Hg] 05/21/2024 11:38 AM Body Weight (39400-1) 165 [lb_av] Body Mass Index (16389-4) 29.23 kg/m2 05/20/2024 07:07 PM Heart Rate (8867-4) 77 /min Blood Pressure Systolic (8480-6) 136 mm[Hg] Blood Pressure Diastolic (8462-4) 71 mm[Hg] 05/21/2024 07:33 PM Heart Rate (8867-4) 69 /min Blood Pressure Systolic (8480-6) 141 mm[Hg] Blood Pressure Diastolic (8462-4) 74 mm[Hg] 05/22/2024 07:11 PM Heart Rate (8867-4) 69 /min Blood Pressure Systolic (8480-6) 124 mm[Hg] Blood Pressure Diastolic (8462-4) 66 mm[Hg] 05/22/2024 06:56 PM Body Weight (28489-0) 165.5 [lb_av ] Body Mass Index (73919-9) 29.31 kg/m2 05/22/2024 06:45 AM Heart Rate (8867-4) 71 /min Blood Pressure Systolic (8480-6) 132 mm[Hg] Blood Pressure Diastolic (8462-4) 63 mm[Hg] 05/23/2024 12:10 PM Body Weight (23650-6) 165 [lb_av] Body Mass Index (43367-1) 29.23 kg/m2 05/24/2024 07:30 AM Heart Rate (8867-4) 84 /min Blood Pressure Systolic (8480-6) 122 mm[Hg] Blood Pressure Diastolic (8462-4) 69 mm[Hg] 05/24/2024 07:29 AM Body Weight (17866-1) 164.2 [lb_av ] Body Mass Index (26398-8) 29.08 kg/m2 05/23/2024 07:20 PM Heart Rate (8867-4) 89 /min Blood Pressure Systolic (8480-6) 152 mm[Hg] Blood Pressure Diastolic (8462-4) 80 mm[Hg] 05/25/2024 09:51 AM Temperature (8310-5) 100 [degF] Oxygen Saturation (13105-3) 95 % Respiratory Rate (9279-1) 19 /min Heart Rate (8867-4) 81 /min Blood Pressure Systolic (8480-6) 129 mm[Hg] Blood Pressure Diastolic (8462-4) 61 mm[Hg] Body Weight (47160-0) 165 [lb_av] Body Mass Index (81178-5) 29.23 kg/m2 05/25/2024 06:45 AM Heart Rate (8867-4) 92 /min Blood Pressure Systolic (8480-6) 110 mm[Hg] Blood Pressure Diastolic (8462-4) 71 mm[Hg] 05/24/2024 07:37 PM Heart Rate (8867-4) 84 /min Blood Pressure Systolic (8480-6) 143 mm[Hg] Blood Pressure Diastolic (8462-4) 73 mm[Hg] 05/26/2024 07:09 PM Heart Rate (8867-4) 75 /min Blood Pressure Systolic (8480-6) 160 mm[Hg] Blood Pressure Diastolic (8462-4) 83 mm[Hg] 05/26/2024 07:36 AM Body Weight (00399-1) 163.8 [lb_av ] Body Mass Index (80725-0) 29.01 kg/m2 05/26/2024 06:43 AM Heart Rate (8867-4) 81 /min Blood Pressure Systolic (8480-6) 121 mm[Hg] Blood Pressure Diastolic (8462-4) 60 mm[Hg] 05/25/2024 07:40 PM Heart Rate (8867-4) 81 /min Blood Pressure Systolic (8480-6) 150 mm[Hg] Blood Pressure Diastolic (8462-4) 89 mm[Hg] 05/27/2024 07:14 PM Heart Rate (8867-4) 69 /min Blood Pressure Systolic (8480-6) 128 mm[Hg] Blood Pressure Diastolic (8462-4) 64 mm[Hg] 05/27/2024 08:52 AM Body Weight (66234-5) 165.4 [lb_av ] Body Mass Index (45399-4) 29.3 kg/m2 05/27/2024 06:17 AM Heart Rate (8867-4) 77 /min Blood Pressure Systolic (8480-6) 117 mm[Hg] Blood Pressure Diastolic (8462-4) 52 mm[Hg] 05/28/2024 08:41 AM Heart Rate (8867-4) 94 /min Blood Pressure Systolic (8480-6) 135 mm[Hg] Blood Pressure Diastolic (8462-4) 70 mm[Hg] 05/28/2024 07:00 PM Heart Rate (8867-4) 81 /min Blood Pressure Systolic (8480-6) 129 mm[Hg] Blood Pressure Diastolic (8462-4) 73 mm[Hg] 05/28/2024 06:18 PM Body Weight (71681-0) 165.6 [lb_av ] Body Mass Index (76610-8) 29.33 kg/m2 05/29/2024 07:23 PM Heart Rate (8867-4) 71 /min Blood Pressure Systolic (8480-6) 125 mm[Hg] Blood Pressure Diastolic (8462-4) 77 mm[Hg] 05/29/2024 05:42 PM Body Weight (89918-6) 164.2 [lb_av ] Body Mass Index (06386-5) 29.08 kg/m2 05/29/2024 07:30 AM Heart Rate (8867-4) 81 /min Blood Pressure Systolic (8480-6) 117 mm[Hg] Blood Pressure Diastolic (8462-4) 74 mm[Hg] 05/30/2024 04:42 PM Body Weight (38417-6) 166.4 [lb_av ] Body Mass Index (01300-1) 29.47 kg/m2 05/30/2024 06:05 PM Heart Rate (8867-4) 66 /min Blood Pressure Systolic (8480-6) 130 mm[Hg] Blood Pressure Diastolic (8462-4) 80 mm[Hg] 05/30/2024 06:51 AM Heart Rate (8867-4) 78 /min Blood Pressure Systolic (8480-6) 118 mm[Hg] Blood Pressure Diastolic (8462-4) 53 mm[Hg] 05/31/2024 08:20 AM Body Weight (74650-1) 164.2 [lb_av ] Body Mass Index (39076-0) 29.08 kg/m2 05/31/2024 06:20 AM Heart Rate (8867-4) 79 /min Blood Pressure Systolic (8480-6) 128 mm[Hg] Blood Pressure Diastolic (8462-4) 56 mm[Hg] 05/31/2024 06:44 PM Heart Rate (8867-4) 77 /min Blood Pressure Systolic (8480-6) 122 mm[Hg] Blood Pressure Diastolic (8462-4) 28 mm[Hg] 06/01/2024 09:17 AM Temperature (8310-5) 98.9 [degF] Oxygen Saturation (08478-1) 97 % Respiratory Rate (9279-1) 16 /min Heart Rate (8867-4) 76 /min Blood Pressure Systolic (8480-6) 132 mm[Hg] Blood Pressure Diastolic (8462-4) 69 mm[Hg] 06/01/2024 12:18 PM Body Weight (81960-7) 164 [lb_av] Body Mass Index (07055-8) 29.05 kg/m2 06/01/2024 09:16 AM Heart Rate (8867-4) 76 /min Blood Pressure Systolic (8480-6) 132 mm[Hg] Blood Pressure Diastolic (8462-4) 69 mm[Hg] 06/02/2024 02:03 PM Body Weight (70711-0) 164.9 [lb_av ] Body Mass Index (42582-2) 29.21 kg/m2 06/02/2024 06:27 AM Heart Rate (8867-4) 78 /min Blood Pressure Systolic (8480-6) 112 mm[Hg] Blood Pressure Diastolic (8462-4) 51 mm[Hg] 06/01/2024 08:00 PM Heart Rate (8867-4) 75 /min Blood Pressure Systolic (8480-6) 151 mm[Hg] Blood Pressure Diastolic (8462-4) 81 mm[Hg] 06/02/2024 07:02 PM Heart Rate (8867-4) 71 /min Blood Pressure Systolic (8480-6) 129 mm[Hg] Blood Pressure Diastolic (8462-4) 68 mm[Hg] 06/03/2024 04:09 PM Body Weight (48230-0) 165 [lb_av] Body Mass Index (75873-8) 29.23 kg/m2 06/03/2024 07:46 AM Heart Rate (8867-4) 78 /min Blood Pressure Systolic (8480-6) 131 mm[Hg] Blood Pressure Diastolic (8462-4) 67 mm[Hg] 06/04/2024 09:54 AM Body Weight (76113-5) 165.2 [lb_av ] Body Mass Index (21791-1) 29.26 kg/m2 06/04/2024 08:26 AM Heart Rate (8867-4) 85 /min Blood Pressure Systolic (8480-6) 138 mm[Hg] Blood Pressure Diastolic (8462-4) 82 mm[Hg] 06/03/2024 07:01 PM Heart Rate (8867-4) 71 /min Blood Pressure Systolic (8480-6) 126 mm[Hg] Blood Pressure Diastolic (8462-4) 72 mm[Hg] 06/04/2024 07:19 PM Heart Rate (8867-4) 73 /min Blood Pressure Systolic (8480-6) 122 mm[Hg] Blood Pressure Diastolic (8462-4) 72 mm[Hg] 06/05/2024 09:13 AM Heart Rate (8867-4) 86 /min Blood Pressure Systolic (8480-6) 147 mm[Hg] Blood Pressure Diastolic (8462-4) 93 mm[Hg] 06/05/2024 04:17 PM Body Weight (05361-8) 167.4 [lb_av ] Body Mass Index (00254-1) 29.65 kg/m2 06/05/2024 07:25 PM Heart Rate (8867-4) 79 /min Blood Pressure Systolic (8480-6) 128 mm[Hg] Blood Pressure Diastolic (8462-4) 77 mm[Hg] 06/06/2024 06:35 PM Heart Rate (8867-4) 80 /min Blood Pressure Systolic (8480-6) 144 mm[Hg] Blood Pressure Diastolic (8462-4) 78 mm[Hg] 06/06/2024 09:53 AM Body Weight (86808-7) 168.5 [lb_av ] Body Mass Index (14589-8) 29.85 kg/m2 06/06/2024 06:53 AM Heart Rate (8867-4) 83 /min Blood Pressure Systolic (8480-6) 117 mm[Hg] Blood Pressure Diastolic (8462-4) 58 mm[Hg] 06/07/2024 09:12 AM Body Weight (69700-0) 165.4 [lb_av ] Body Mass Index (58479-2) 29.3 kg/m2 06/07/2024 06:36 AM Heart Rate (8867-4) 75 /min Blood Pressure Systolic (8480-6) 115 mm[Hg] Blood Pressure Diastolic (8462-4) 54 mm[Hg] 06/08/2024 01:27 PM Body Weight (71717-4) 166.8 [lb_av ] Body Mass Index (14779-4) 29.54 kg/m2 06/08/2024 09:41 AM Temperature (8310-5) 98.2 [degF] Oxygen Saturation (47209-8) 97 % Respiratory Rate (9279-1) 18 /min Heart Rate (8867-4) 82 /min Blood Pressure Systolic (8480-6) 117 mm[Hg] Blood Pressure Diastolic (8462-4) 58 mm[Hg] 06/08/2024 07:29 AM Heart Rate (8867-4) 82 /min Blood Pressure Systolic (8480-6) 117 mm[Hg] Blood Pressure Diastolic (8462-4) 58 mm[Hg] 06/07/2024 07:38 PM Heart Rate (8867-4) 77 /min Blood Pressure Systolic (8480-6) 157 mm[Hg] Blood Pressure Diastolic (8462-4) 69 mm[Hg] 06/09/2024 01:00 PM Body Weight (03101-7) 166.4 [lb_av ] Body Mass Index (95679-6) 29.47 kg/m2 06/09/2024 09:25 AM Heart Rate (8867-4) 82 /min Blood Pressure Systolic (8480-6) 122 mm[Hg] Blood Pressure Diastolic (8462-4) 67 mm[Hg] 06/08/2024 07:43 PM Heart Rate (8867-4) 82 /min Blood Pressure Systolic (8480-6) 157 mm[Hg] Blood Pressure Diastolic (8462-4) 81 mm[Hg] 06/10/2024 06:36 PM Heart Rate (8867-4) 73 /min Blood Pressure Systolic (8480-6) 124 mm[Hg] Blood Pressure Diastolic (8462-4) 58 mm[Hg] 06/10/2024 08:20 AM Body Weight (39810-6) 167.4 [lb_av ] Body Mass Index (92950-1) 29.65 kg/m2 06/10/2024 06:55 AM Heart Rate (8867-4) 78 /min Blood Pressure Systolic (8480-6) 119 mm[Hg] Blood Pressure Diastolic (8462-4) 45 mm[Hg] 06/09/2024 08:02 PM Heart Rate (8867-4) 73 /min Blood Pressure Systolic (8480-6) 156 mm[Hg] Blood Pressure Diastolic (8462-4) 86 mm[Hg] 06/11/2024 08:09 PM Heart Rate (8867-4) 73 /min Blood Pressure Systolic (8480-6) 129 mm[Hg] Blood Pressure Diastolic (8462-4) 63 mm[Hg] 06/11/2024 11:55 AM Body Weight (57233-5) 166.6 [lb_av ] Body Mass Index (54270-8) 29.51 kg/m2 06/11/2024 07:09 AM Heart Rate (8867-4) 76 /min Blood Pressure Systolic (8480-6) 109 mm[Hg] Blood Pressure Diastolic (8462-4) 50 mm[Hg] 06/12/2024 07:08 AM Heart Rate (8867-4) 78 /min Blood Pressure Systolic (8480-6) 120 mm[Hg] Blood Pressure Diastolic (8462-4) 59 mm[Hg] 06/12/2024 07:14 PM Heart Rate (8867-4) 71 /min Blood Pressure Systolic (8480-6) 127 mm[Hg] Blood Pressure Diastolic (8462-4) 63 mm[Hg] 06/12/2024 02:58 PM Body Weight (48365-1) 167.1 [lb_av ] Body Mass Index (02650-6) 29.6 kg/m2 06/13/2024 07:10 PM Heart Rate (8867-4) 73 /min Blood Pressure Systolic (8480-6) 152 mm[Hg] Blood Pressure Diastolic (8462-4) 73 mm[Hg] 06/13/2024 04:50 PM Body Weight (19401-6) 167 [lb_av] Body Mass Index (50850-9) 29.58 kg/m2 06/13/2024 08:25 AM Body Weight (16085-7) 167 [lb_av] Body Mass Index (04643-9) 29.58 kg/m2 06/13/2024 07:25 AM Heart Rate (8867-4) 75 /min Blood Pressure Systolic (8480-6) 118 mm[Hg] Blood Pressure Diastolic (8462-4) 59 mm[Hg] 06/14/2024 03:23 PM Body Weight (78782-2) 167.2 [lb_av ] Body Mass Index (57466-2) 29.61 kg/m2 06/14/2024 08:42 AM Heart Rate (8867-4) 77 /min Blood Pressure Systolic (8480-6) 136 mm[Hg] Blood Pressure Diastolic (8462-4) 67 mm[Hg] 06/15/2024 09:53 AM Body Weight (77235-6) 167.8 [lb_av ] Body Mass Index (15985-7) 29.72 kg/m2 06/15/2024 09:51 AM Temperature (8310-5) 98.4 [degF] Oxygen Saturation (35568-6) 93 % Respiratory Rate (9279-1) 17 /min Heart Rate (8867-4) 94 /min 06/15/2024 09:50 AM Heart Rate (8867-4) 94 /min Blood Pressure Systolic (8480-6) 120 mm[Hg] Blood Pressure Diastolic (8462-4) 64 mm[Hg] 06/15/2024 08:12 AM Body Weight (43307-9) 167.8 [lb_av ] Body Mass Index (67577-0) 29.72 kg/m2 06/14/2024 07:00 PM Heart Rate (8867-4) 79 /min Blood Pressure Systolic (8480-6) 162 mm[Hg] Blood Pressure Diastolic (8462-4) 75 mm[Hg] 06/16/2024 09:07 AM Body Weight (17569-8) 167.9 [lb_av ] Body Mass Index (24731-5) 29.74 kg/m2 06/16/2024 08:35 AM Heart Rate (8867-4) 85 /min Blood Pressure Systolic (8480-6) 138 mm[Hg] Blood Pressure Diastolic (8462-4) 76 mm[Hg] 06/15/2024 06:46 PM Heart Rate (8867-4) 80 /min Blood Pressure Systolic (8480-6) 163 mm[Hg] Blood Pressure Diastolic (8462-4) 74 mm[Hg] 06/17/2024 09:36 AM Body Weight (55340-8) 168 [lb_av] Body Mass Index (10277-7) 29.76 kg/m2 06/17/2024 08:16 AM Heart Rate (8867-4) 76 /min Blood Pressure Systolic (8480-6) 117 mm[Hg] Blood Pressure Diastolic (8462-4) 52 mm[Hg] 06/17/2024 07:00 PM Heart Rate (8867-4) 71 /min Blood Pressure Systolic (8480-6) 116 mm[Hg] Blood Pressure Diastolic (8462-4) 85 mm[Hg] 06/16/2024 07:06 PM Heart Rate (8867-4) 78 /min Blood Pressure Systolic (8480-6) 127 mm[Hg] Blood Pressure Diastolic (8462-4) 71 mm[Hg] 06/18/2024 08:39 AM Heart Rate (8867-4) 77 /min Blood Pressure Systolic (8480-6) 131 mm[Hg] Blood Pressure Diastolic (8462-4) 61 mm[Hg] Body Weight (75013-0) 168.8 [lb_av] Body Mass Index (78496-1) 29.9 kg/m2 06/18/2024 07:15 AM Heart Rate (8867-4) 77 /min Blood Pressure Systolic (8480-6) 113 mm[Hg] Blood Pressure Diastolic (8462-4) 61 mm[Hg] 06/19/2024 12:40 AM Heart Rate (8867-4) 78 /min Blood Pressure Systolic (8480-6) 144 mm[Hg] Blood Pressure Diastolic (8462-4) 62 mm[Hg] 06/19/2024 09:03 AM Heart Rate (8867-4) 76 /min Blood Pressure Systolic (8480-6) 152 mm[Hg] Blood Pressure Diastolic (8462-4) 64 mm[Hg] 06/19/2024 07:31 PM Heart Rate (8867-4) 99 /min Blood Pressure Systolic (8480-6) 147 mm[Hg] Blood Pressure Diastolic (8462-4) 63 mm[Hg] 06/19/2024 09:43 AM Body Weight (28736-2) 167.8 [lb_av ] Body Mass Index (62301-5) 29.72 kg/m2 06/20/2024 05:38 PM Body Weight (76876-7) 167.4 [lb_av ] Body Mass Index (92351-2) 29.65 kg/m2 06/20/2024 06:54 AM Heart Rate (8867-4) 79 /min Blood Pressure Systolic (8480-6) 121 mm[Hg] Blood Pressure Diastolic (8462-4) 55 mm[Hg] 06/21/2024 09:19 AM Body Weight (91516-0) 167.8 [lb_av ] Body Mass Index (21393-4) 29.72 kg/m2 06/21/2024 06:43 PM Heart Rate (8867-4) 76 /min Blood Pressure Systolic (8480-6) 143 mm[Hg] Blood Pressure Diastolic (8462-4) 75 mm[Hg] 06/20/2024 07:29 PM Heart Rate (8867-4) 81 /min Blood Pressure Systolic (8480-6) 136 mm[Hg] Blood Pressure Diastolic (8462-4) 78 mm[Hg] 06/21/2024 07:18 AM Heart Rate (8867-4) 80 /min Blood Pressure Systolic (8480-6) 130 mm[Hg] Blood Pressure Diastolic (8462-4) 75 mm[Hg] 06/22/2024 07:08 AM Heart Rate (8867-4) 81 /min Blood Pressure Systolic (8480-6) 109 mm[Hg] Blood Pressure Diastolic (8462-4) 58 mm[Hg] 06/23/2024 04:15 PM Body Weight (07821-6) 170 [lb_av] Body Mass Index (45400-5) 30.11 kg/m2 06/23/2024 11:58 AM Heart Rate (8867-4) 87 /min Blood Pressure Systolic (8480-6) 127 mm[Hg] Blood Pressure Diastolic (8462-4) 61 mm[Hg] 06/22/2024 06:49 PM Temperature (8310-5) 97.1 [degF] Oxygen Saturation (67679-1) 96 % Respiratory Rate (9279-1) 16 /min Heart Rate (8867-4) 81 /min Blood Pressure Systolic (8480-6) 109 mm[Hg] Blood Pressure Diastolic (8462-4) 58 mm[Hg] 06/22/2024 06:48 PM Body Weight (04764-1) 170.4 [lb_av ] Body Mass Index (37832-3) 30.18 kg/m2 06/22/2024 06:43 PM Heart Rate (8867-4) 82 /min Blood Pressure Systolic (8480-6) 114 mm[Hg] Blood Pressure Diastolic (8462-4) 69 mm[Hg] 06/24/2024 04:03 PM Body Weight (57298-1) 170.1 [lb_av ] Body Mass Index (86299-1) 30.13 kg/m2 06/24/2024 06:43 AM Heart Rate (8867-4) 76 /min Blood Pressure Systolic (8480-6) 113 mm[Hg] Blood Pressure Diastolic (8462-4) 64 mm[Hg] 06/23/2024 07:04 PM Heart Rate (8867-4) 80 /min Blood Pressure Systolic (8480-6) 130 mm[Hg] Blood Pressure Diastolic (8462-4) 66 mm[Hg] 06/25/2024 01:27 PM Body Weight (68672-6) 171.4 [lb_av ] Body Mass Index (00209-1) 30.36 kg/m2 06/25/2024 07:47 AM Heart Rate (8867-4) 81 /min Blood Pressure Systolic (8480-6) 114 mm[Hg] Blood Pressure Diastolic (8462-4) 54 mm[Hg] 06/24/2024 08:16 PM Heart Rate (8867-4) 84 /min Blood Pressure Systolic (8480-6) 159 mm[Hg] Blood Pressure Diastolic (8462-4) 77 mm[Hg] 06/25/2024 07:19 PM Heart Rate (8867-4) 80 /min Blood Pressure Systolic (8480-6) 132 mm[Hg] Blood Pressure Diastolic (8462-4) 53 mm[Hg] 06/26/2024 10:45 AM Heart Rate (8867-4) 84 /min Blood Pressure Systolic (8480-6) 131 mm[Hg] Blood Pressure Diastolic (8462-4) 73 mm[Hg] 06/26/2024 08:06 PM Heart Rate (8867-4) 77 /min Blood Pressure Systolic (8480-6) 124 mm[Hg] Blood Pressure Diastolic (8462-4) 69 mm[Hg] 06/26/2024 03:44 PM Body Weight (83180-8) 171.9 [lb_av ] Body Mass Index (22820-7) 30.45 kg/m2 06/27/2024 06:22 PM Heart Rate (8867-4) 80 /min Blood Pressure Systolic (8480-6) 130 mm[Hg] Blood Pressure Diastolic (8462-4) 70 mm[Hg] 06/27/2024 11:18 AM Body Weight (94440-4) 167.2 [lb_av ] Body Mass Index (15880-7) 29.61 kg/m2 06/27/2024 07:11 AM Heart Rate (8867-4) 83 /min Blood Pressure Systolic (8480-6) 124 mm[Hg] Blood Pressure Diastolic (8462-4) 60 mm[Hg] 06/28/2024 08:38 AM Body Weight (43403-5) 167 [lb_av] Body Mass Index (65642-4) 29.58 kg/m2 06/28/2024 07:56 AM Heart Rate (8867-4) 73 /min Blood Pressure Systolic (8480-6) 112 mm[Hg] Blood Pressure Diastolic (8462-4) 51 mm[Hg] 06/29/2024 08:53 AM Temperature (8310-5) 98.3 [degF] Oxygen Saturation (86038-7) 93 % Respiratory Rate (9279-1) 16 /min Heart Rate (8867-4) 80 /min 06/29/2024 08:12 AM Heart Rate (8867-4) 80 /min Blood Pressure Systolic (8480-6) 135 mm[Hg] Blood Pressure Diastolic (8462-4) 85 mm[Hg] 06/29/2024 10:50 AM Body Weight (62125-3) 168.2 [lb_av ] Body Mass Index (48974-2) 29.79 kg/m2 06/28/2024 06:43 PM Heart Rate (8867-4) 71 /min Blood Pressure Systolic (8480-6) 163 mm[Hg] Blood Pressure Diastolic (8462-4) 70 mm[Hg] 06/29/2024 06:26 PM Heart Rate (8867-4) 76 /min Blood Pressure Systolic (8480-6) 150 mm[Hg] Blood Pressure Diastolic (8462-4) 74 mm[Hg] 06/30/2024 03:13 PM Body Weight (98238-3) 168 [lb_av] Body Mass Index (57344-4) 29.76 kg/m2 06/30/2024 06:46 AM Heart Rate (8867-4) 79 /min Blood Pressure Systolic (8480-6) 132 mm[Hg] Blood Pressure Diastolic (8462-4) 65 mm[Hg] 07/01/2024 12:35 PM Body Weight (58776-8) 172.4 [lb_av ] Body Mass Index (75472-9) 30.54 kg/m2 07/01/2024 08:08 AM Heart Rate (8867-4) 77 /min Blood Pressure Systolic (8480-6) 119 mm[Hg] Blood Pressure Diastolic (8462-4) 74 mm[Hg] 06/30/2024 08:57 PM Heart Rate (8867-4) 81 /min Blood Pressure Systolic (8480-6) 127 mm[Hg] Blood Pressure Diastolic (8462-4) 69 mm[Hg] 07/02/2024 03:08 PM Body Weight (42937-2) 170.1 [lb_av ] Body Mass Index (01517-1) 30.13 kg/m2 07/02/2024 07:50 AM Heart Rate (8867-4) 77 /min Blood Pressure Systolic (8480-6) 112 mm[Hg] Blood Pressure Diastolic (8462-4) 56 mm[Hg] 07/01/2024 08:17 PM Heart Rate (8867-4) 75 /min Blood Pressure Systolic (8480-6) 143 mm[Hg] Blood Pressure Diastolic (8462-4) 75 mm[Hg] 07/02/2024 06:57 PM Heart Rate (8867-4) 69 /min Blood Pressure Systolic (8480-6) 129 mm[Hg] Blood Pressure Diastolic (8462-4) 63 mm[Hg] 07/03/2024 07:05 PM Heart Rate (8867-4) 74 /min Blood Pressure Systolic (8480-6) 139 mm[Hg] Blood Pressure Diastolic (8462-4) 93 mm[Hg] 07/03/2024 08:49 AM Body Weight (46735-4) 170.6 [lb_av ] Body Mass Index (99507-3) 30.22 kg/m2 07/03/2024 07:34 AM Heart Rate (8867-4) 83 /min Blood Pressure Systolic (8480-6) 104 mm[Hg] Blood Pressure Diastolic (8462-4) 65 mm[Hg] 07/04/2024 09:56 AM Body Weight (02451-8) 171 [lb_av] Body Mass Index (32690-6) 30.29 kg/m2 07/04/2024 08:45 AM Heart Rate (8867-4) 81 /min Blood Pressure Systolic (8480-6) 125 mm[Hg] Blood Pressure Diastolic (8462-4) 67 mm[Hg] 07/05/2024 06:39 PM Heart Rate (8867-4) 74 /min Blood Pressure Systolic (8480-6) 160 mm[Hg] Blood Pressure Diastolic (8462-4) 72 mm[Hg] 07/05/2024 09:28 AM Heart Rate (8867-4) 79 /min Blood Pressure Systolic (8480-6) 136 mm[Hg] Blood Pressure Diastolic (8462-4) 69 mm[Hg] 07/05/2024 10:34 AM Heart Rate (8867-4) 79 /min Blood Pressure Systolic (8480-6) 136 mm[Hg] Blood Pressure Diastolic (8462-4) 69 mm[Hg] 07/05/2024 09:48 AM Body Weight (46775-3) 172.2 [lb_av ] Body Mass Index (49649-0) 30.5 kg/m2 07/04/2024 06:24 PM Heart Rate (8867-4) 80 /min Blood Pressure Systolic (8480-6) 138 mm[Hg] Blood Pressure Diastolic (8462-4) 74 mm[Hg] 07/06/2024 07:00 PM Heart Rate (8867-4) 80 /min Blood Pressure Systolic (8480-6) 132 mm[Hg] Blood Pressure Diastolic (8462-4) 63 mm[Hg] 07/06/2024 12:14 PM Temperature (8310-5) 97.7 [degF] Oxygen Saturation (31395-4) 98 % Respiratory Rate (9279-1) 16 /min Heart Rate (8867-4) 84 /min Blood Pressure Systolic (8480-6) 134 mm[Hg] Blood Pressure Diastolic (8462-4) 66 mm[Hg] Body Weight (07797-0) 169.2 [lb_av] Body Mass Index (51553-6) 29.97 kg/m2 07/06/2024 09:28 AM Heart Rate (8867-4) 84 /min Blood Pressure Systolic (8480-6) 134 mm[Hg] Blood Pressure Diastolic (8462-4) 64 mm[Hg] 07/07/2024 07:34 PM Heart Rate (8867-4) 74 /min Blood Pressure Systolic (8480-6) 143 mm[Hg] Blood Pressure Diastolic (8462-4) 74 mm[Hg] 07/07/2024 01:32 PM Body Weight (35825-0) 170 [lb_av] Body Mass Index (61262-6) 30.11 kg/m2 07/07/2024 07:30 AM Heart Rate (8867-4) 76 /min Blood Pressure Systolic (8480-6) 122 mm[Hg] Blood Pressure Diastolic (8462-4) 50 mm[Hg] 07/08/2024 07:15 AM Heart Rate (8867-4) 74 /min Blood Pressure Systolic (8480-6) 119 mm[Hg] Blood Pressure Diastolic (8462-4) 60 mm[Hg] 07/08/2024 07:41 PM Heart Rate (8867-4) 76 /min Blood Pressure Systolic (8480-6) 148 mm[Hg] Blood Pressure Diastolic (8462-4) 70 mm[Hg] 07/08/2024 05:22 PM Body Weight (66270-9) 171 [lb_av] Body Mass Index (21438-1) 30.29 kg/m2 07/09/2024 07:13 PM Heart Rate (8867-4) 77 /min Blood Pressure Systolic (8480-6) 125 mm[Hg] Blood Pressure Diastolic (8462-4) 51 mm[Hg] 07/09/2024 03:08 PM Body Weight (11866-1) 171.1 [lb_av ] Body Mass Index (53736-4) 30.31 kg/m2 07/09/2024 09:02 AM Heart Rate (8867-4) 81 /min Blood Pressure Systolic (8480-6) 128 mm[Hg] Blood Pressure Diastolic (8462-4) 72 mm[Hg] 07/10/2024 07:43 AM Heart Rate (8867-4) 91 /min Blood Pressure Systolic (8480-6) 128 mm[Hg] Blood Pressure Diastolic (8462-4) 77 mm[Hg] 07/10/2024 07:23 PM Heart Rate (8867-4) 76 /min Blood Pressure Systolic (8480-6) 140 mm[Hg] Blood Pressure Diastolic (8462-4) 66 mm[Hg] 07/10/2024 04:16 PM Body Weight (07319-9) 171 [lb_av] Body Mass Index (01269-5) 30.29 kg/m2 07/11/2024 08:25 PM Heart Rate (8867-4) 61 /min Blood Pressure Systolic (8480-6) 115 mm[Hg] Blood Pressure Diastolic (8462-4) 67 mm[Hg] 07/11/2024 10:17 AM Body Weight (57970-0) 170.8 [lb_av ] Body Mass Index (70568-1) 30.25 kg/m2 07/11/2024 08:08 AM Heart Rate (8867-4) 74 /min Blood Pressure Systolic (8480-6) 139 mm[Hg] Blood Pressure Diastolic (8462-4) 72 mm[Hg] 07/12/2024 07:15 AM Heart Rate (8867-4) 78 /min Blood Pressure Systolic (8480-6) 152 mm[Hg] Blood Pressure Diastolic (8462-4) 77 mm[Hg] 07/13/2024 12:52 PM Body Weight (51631-1) 170 [lb_av] Body Mass Index (11576-0) 30.11 kg/m2 07/13/2024 10:12 AM Temperature (8310-5) 98.6 [degF] Oxygen Saturation (84832-5) 96 % Respiratory Rate (9279-1) 20 /min Heart Rate (8867-4) 96 /min Blood Pressure Systolic (8480-6) 121 mm[Hg] Blood Pressure Diastolic (8462-4) 62 mm[Hg] 07/13/2024 08:54 AM Heart Rate (8867-4) 96 /min Blood Pressure Systolic (8480-6) 121 mm[Hg] Blood Pressure Diastolic (8462-4) 62 mm[Hg] 07/12/2024 07:36 PM Heart Rate (8867-4) 76 /min Blood Pressure Systolic (8480-6) 140 mm[Hg] Blood Pressure Diastolic (8462-4) 66 mm[Hg] 07/12/2024 06:19 PM Body Weight (89592-9) 170.7 [lb_av ] Body Mass Index (43281-0) 30.23 kg/m2 07/14/2024 11:01 AM Body Weight (97548-0) 170.1 [lb_av ] Body Mass Index (55157-9) 30.13 kg/m2 07/14/2024 07:20 AM Heart Rate (8867-4) 75 /min Blood Pressure Systolic (8480-6) 120 mm[Hg] Blood Pressure Diastolic (8462-4) 63 mm[Hg] 07/13/2024 07:45 PM Heart Rate (8867-4) 73 /min Blood Pressure Systolic (8480-6) 155 mm[Hg] Blood Pressure Diastolic (8462-4) 76 mm[Hg] 07/15/2024 01:21 PM Body Weight (69809-6) 170.2 [lb_av ] Body Mass Index (55827-0) 30.15 kg/m2 07/15/2024 07:16 AM Heart Rate (8867-4) 80 /min Blood Pressure Systolic (8480-6) 128 mm[Hg] Blood Pressure Diastolic (8462-4) 50 mm[Hg] 07/15/2024 12:35 AM Heart Rate (8867-4) 71 /min Blood Pressure Systolic (8480-6) 116 mm[Hg] Blood Pressure Diastolic (8462-4) 65 mm[Hg] 07/15/2024 07:34 PM Heart Rate (8867-4) 73 /min Blood Pressure Systolic (8480-6) 119 mm[Hg] Blood Pressure Diastolic (8462-4) 61 mm[Hg] 07/16/2024 07:14 PM Heart Rate (8867-4) 84 /min Blood Pressure Systolic (8480-6) 138 mm[Hg] Blood Pressure Diastolic (8462-4) 64 mm[Hg] 07/16/2024 03:41 PM Body Weight (97107-0) 170.3 [lb_av ] Body Mass Index (70437-2) 30.16 kg/m2 07/16/2024 08:58 AM Heart Rate (8867-4) 81 /min Blood Pressure Systolic (8480-6) 118 mm[Hg] Blood Pressure Diastolic (8462-4) 87 mm[Hg] 07/17/2024 10:44 AM Body Weight (53924-5) 170.2 [lb_av ] Body Mass Index (81729-7) 30.15 kg/m2 07/17/2024 07:05 AM Heart Rate (8867-4) 79 /min Blood Pressure Systolic (8480-6) 135 mm[Hg] Blood Pressure Diastolic (8462-4) 55 mm[Hg] 07/17/2024 07:11 PM Heart Rate (8867-4) 73 /min Blood Pressure Systolic (8480-6) 121 mm[Hg] Blood Pressure Diastolic (8462-4) 67 mm[Hg] 07/18/2024 06:35 PM Heart Rate (8867-4) 80 /min Blood Pressure Systolic (8480-6) 140 mm[Hg] Blood Pressure Diastolic (8462-4) 80 mm[Hg] 07/18/2024 10:25 AM Body Weight (56500-5) 167.6 [lb_av ] Body Mass Index (96158-0) 29.69 kg/m2 07/18/2024 09:04 AM Heart Rate (8867-4) 80 /min Blood Pressure Systolic (8480-6) 137 mm[Hg] Blood Pressure Diastolic (8462-4) 68 mm[Hg] 07/19/2024 09:47 AM Heart Rate (8867-4) 78 /min Blood Pressure Systolic (8480-6) 110 mm[Hg] Blood Pressure Diastolic (8462-4) 57 mm[Hg] Body Weight (23356-4) 167.2 [lb_av] Body Mass Index (69378-4) 29.61 kg/m2 07/19/2024 07:31 PM Heart Rate (8867-4) 85 /min Blood Pressure Systolic (8480-6) 123 mm[Hg] Blood Pressure Diastolic (8462-4) 68 mm[Hg] 07/20/2024 07:31 PM Heart Rate (8867-4) 75 /min Blood Pressure Systolic (8480-6) 148 mm[Hg] Blood Pressure Diastolic (8462-4) 71 mm[Hg] 07/20/2024 11:07 AM Body Weight (08868-5) 167.4 [lb_av ] Body Mass Index (13647-9) 29.65 kg/m2 07/20/2024 09:01 AM Temperature (8310-5) 97.4 [degF] Oxygen Saturation (67180-3) 92 % Respiratory Rate (9279-1) 22 /min Heart Rate (8867-4) 78 /min Blood Pressure Systolic (8480-6) 111 mm[Hg] Blood Pressure Diastolic (8462-4) 55 mm[Hg] 07/20/2024 06:36 AM Heart Rate (8867-4) 78 /min Blood Pressure Systolic (8480-6) 111 mm[Hg] Blood Pressure Diastolic (8462-4) 55 mm[Hg] 07/21/2024 08:59 AM Heart Rate (8867-4) 71 /min Blood Pressure Systolic (8480-6) 138 mm[Hg] Blood Pressure Diastolic (8462-4) 80 mm[Hg] 07/21/2024 08:32 PM Heart Rate (8867-4) 83 /min Blood Pressure Systolic (8480-6) 119 mm[Hg] Blood Pressure Diastolic (8462-4) 65 mm[Hg] 07/22/2024 07:18 PM Heart Rate (8867-4) 77 /min Blood Pressure Systolic (8480-6) 141 mm[Hg] Blood Pressure Diastolic (8462-4) 63 mm[Hg] 07/22/2024 04:18 PM Body Weight (86345-3) 170.6 [lb_av ] Body Mass Index (66648-5) 30.22 kg/m2 07/22/2024 08:38 AM Heart Rate (8867-4) 93 /min Blood Pressure Systolic (8480-6) 163 mm[Hg] Blood Pressure Diastolic (8462-4) 59 mm[Hg] 07/23/2024 01:56 PM Body Weight (32920-8) 170.4 [lb_av ] Body Mass Index (09840-0) 30.18 kg/m2 07/23/2024 08:02 AM Heart Rate (8867-4) 83 /min Blood Pressure Systolic (8480-6) 112 mm[Hg] Blood Pressure Diastolic (8462-4) 54 mm[Hg] 07/24/2024 08:01 AM Heart Rate (8867-4) 82 /min Blood Pressure Systolic (8480-6) 112 mm[Hg] Blood Pressure Diastolic (8462-4) 62 mm[Hg] 07/23/2024 09:48 PM Heart Rate (8867-4) 79 /min Blood Pressure Systolic (8480-6) 131 mm[Hg] Blood Pressure Diastolic (8462-4) 71 mm[Hg] 07/24/2024 07:01 PM Heart Rate (8867-4) 71 /min Blood Pressure Systolic (8480-6) 128 mm[Hg] Blood Pressure Diastolic (8462-4) 73 mm[Hg] 07/24/2024 04:52 PM Body Weight (46715-2) 171 [lb_av] Body Mass Index (34885-6) 30.29 kg/m2 07/25/2024 06:40 PM Heart Rate (8867-4) 80 /min Blood Pressure Systolic (8480-6) 126 mm[Hg] Blood Pressure Diastolic (8462-4) 76 mm[Hg] 07/25/2024 12:34 PM Body Weight (89382-6) 172.4 [lb_av ] Body Mass Index (84800-1) 30.54 kg/m2 07/25/2024 08:29 AM Heart Rate (8867-4) 77 /min Blood Pressure Systolic (8480-6) 124 mm[Hg] Blood Pressure Diastolic (8462-4) 63 mm[Hg] 07/26/2024 07:01 AM Heart Rate (8867-4) 76 /min Blood Pressure Systolic (8480-6) 131 mm[Hg] Blood Pressure Diastolic (8462-4) 76 mm[Hg] 07/27/2024 10:04 AM Body Weight (36800-5) 171.4 [lb_av ] Body Mass Index (72151-6) 30.36 kg/m2 07/27/2024 09:35 AM Temperature (8310-5) 98.4 [degF] Oxygen Saturation (11738-9) 99 % Respiratory Rate (9279-1) 16 /min Heart Rate (8867-4) 80 /min Blood Pressure Systolic (8480-6) 132 mm[Hg] Blood Pressure Diastolic (8462-4) 68 mm[Hg] 07/26/2024 07:20 PM Heart Rate (8867-4) 72 /min Blood Pressure Systolic (8480-6) 142 mm[Hg] Blood Pressure Diastolic (8462-4) 69 mm[Hg] 07/26/2024 05:50 PM Body Weight (60157-3) 168.6 [lb_av ] Body Mass Index (21005-8) 29.86 kg/m2 07/28/2024 09:55 AM Body Weight (24391-4) 169.4 [lb_av ] Body Mass Index (09093-4) 30 kg/m2 07/28/2024 06:38 AM Heart Rate (8867-4) 78 /min Blood Pressure Systolic (8480-6) 117 mm[Hg] Blood Pressure Diastolic (8462-4) 52 mm[Hg] 07/27/2024 06:34 PM Heart Rate (8867-4) 74 /min Blood Pressure Systolic (8480-6) 153 mm[Hg] Blood Pressure Diastolic (8462-4) 74 mm[Hg] 07/29/2024 10:00 AM Body Weight (44459-6) 170 [lb_av] Body Mass Index (87378-8) 30.11 kg/m2 07/29/2024 09:37 AM Heart Rate (8867-4) 77 /min Blood Pressure Systolic (8480-6) 115 mm[Hg] Blood Pressure Diastolic (8462-4) 61 mm[Hg] 07/28/2024 07:04 PM Heart Rate (8867-4) 71 /min Blood Pressure Systolic (8480-6) 122 mm[Hg] Blood Pressure Diastolic (8462-4) 59 mm[Hg] 07/29/2024 07:14 PM Heart Rate (8867-4) 73 /min Blood Pressure Systolic (8480-6) 125 mm[Hg] Blood Pressure Diastolic (8462-4) 68 mm[Hg] 07/30/2024 07:29 PM Heart Rate (8867-4) 73 /min Blood Pressure Systolic (8480-6) 90 mm[Hg] Blood Pressure Diastolic (8462-4) 47 mm[Hg] 07/30/2024 03:46 PM Body Weight (39594-6) 171.2 [lb_av ] Body Mass Index (92591-6) 30.32 kg/m2 07/30/2024 07:58 AM Heart Rate (8867-4) 78 /min Blood Pressure Systolic (8480-6) 114 mm[Hg] Blood Pressure Diastolic (8462-4) 63 mm[Hg] 07/31/2024 07:09 AM Heart Rate (8867-4) 78 /min Blood Pressure Systolic (8480-6) 136 mm[Hg] Blood Pressure Diastolic (8462-4) 53 mm[Hg] 07/31/2024 07:07 AM Body Weight (03066-3) 169.8 [lb_av ] Body Mass Index (23486-1) 30.08 kg/m2 07/31/2024 06:55 PM Heart Rate (8867-4) 73 /min Blood Pressure Systolic (8480-6) 124 mm[Hg] Blood Pressure Diastolic (8462-4) 65 mm[Hg] 08/01/2024 07:14 PM Heart Rate (8867-4) 80 /min Blood Pressure Systolic (8480-6) 138 mm[Hg] Blood Pressure Diastolic (8462-4) 80 mm[Hg] 08/01/2024 11:41 AM Body Weight (72840-1) 169.8 [lb_av ] Body Mass Index (14668-2) 30.08 kg/m2 08/01/2024 09:03 AM Heart Rate (8867-4) 82 /min Blood Pressure Systolic (8480-6) 113 mm[Hg] Blood Pressure Diastolic (8462-4) 56 mm[Hg] 08/02/2024 11:33 AM Body Weight (56686-9) 169.6 [lb_av ] Body Mass Index (74984-5) 30.04 kg/m2 08/02/2024 07:45 AM Heart Rate (8867-4) 78 /min Blood Pressure Systolic (8480-6) 130 mm[Hg] Blood Pressure Diastolic (8462-4) 71 mm[Hg] 08/02/2024 07:27 PM Heart Rate (8867-4) 78 /min Blood Pressure Systolic (8480-6) 152 mm[Hg] Blood Pressure Diastolic (8462-4) 85 mm[Hg] 08/03/2024 09:50 AM Heart Rate (8867-4) 81 /min Blood Pressure Systolic (8480-6) 104 mm[Hg] Blood Pressure Diastolic (8462-4) 56 mm[Hg] 08/03/2024 10:37 AM Temperature (8310-5) 97.9 [degF] Oxygen Saturation (85761-9) 98 % Respiratory Rate (9279-1) 16 /min Heart Rate (8867-4) 81 /min 08/03/2024 04:44 PM Body Weight (62955-4) 171.2 [lb_av ] Body Mass Index (80750-7) 30.32 kg/m2 08/03/2024 07:45 PM Heart Rate (8867-4) 96 /min Blood Pressure Systolic (8480-6) 110 mm[Hg] Blood Pressure Diastolic (8462-4) 58 mm[Hg] 08/04/2024 08:21 AM Heart Rate (8867-4) 75 /min Blood Pressure Systolic (8480-6) 126 mm[Hg] Blood Pressure Diastolic (8462-4) 69 mm[Hg] 08/04/2024 07:55 PM Heart Rate (8867-4) 76 /min Blood Pressure Systolic (8480-6) 123 mm[Hg] Blood Pressure Diastolic (8462-4) 58 mm[Hg] 08/04/2024 06:29 PM Body Weight (03682-1) 170.7 [lb_av ] Body Mass Index (26127-1) 30.23 kg/m2 08/05/2024 07:52 AM Heart Rate (8867-4) 75 /min Blood Pressure Systolic (8480-6) 103 mm[Hg] Blood Pressure Diastolic (8462-4) 46 mm[Hg] 08/06/2024 12:54 AM Heart Rate (8867-4) 79 /min Blood Pressure Systolic (8480-6) 137 mm[Hg] Blood Pressure Diastolic (8462-4) 71 mm[Hg] 08/05/2024 07:05 PM Body Weight (99890-0) 170.6 [lb_av ] Body Mass Index (12866-2) 30.22 kg/m2 08/06/2024 08:27 AM Heart Rate (8867-4) 81 /min Blood Pressure Systolic (8480-6) 108 mm[Hg] Blood Pressure Diastolic (8462-4) 59 mm[Hg] 08/06/2024 02:46 PM Body Weight (80981-6) 170.1 [lb_av ] Body Mass Index (21142-2) 30.13 kg/m2 08/06/2024 07:20 PM Heart Rate (8867-4) 77 /min Blood Pressure Systolic (8480-6) 125 mm[Hg] Blood Pressure Diastolic (8462-4) 74 mm[Hg] 08/07/2024 08:51 AM Heart Rate (8867-4) 86 /min Blood Pressure Systolic (8480-6) 141 mm[Hg] Blood Pressure Diastolic (8462-4) 78 mm[Hg] 08/07/2024 03:38 PM Body Weight (86317-5) 169.7 [lb_av ] Body Mass Index (78609-9) 30.06 kg/m2 08/07/2024 06:44 PM Heart Rate (8867-4) 81 /min Blood Pressure Systolic (8480-6) 135 mm[Hg] Blood Pressure Diastolic (8462-4) 71 mm[Hg] 08/08/2024 08:51 AM Heart Rate (8867-4) 78 /min Blood Pressure Systolic (8480-6) 125 mm[Hg] Blood Pressure Diastolic (8462-4) 65 mm[Hg] 08/08/2024 07:09 PM Heart Rate (8867-4) 80 /min Blood Pressure Systolic (8480-6) 144 mm[Hg] Blood Pressure Diastolic (8462-4) 78 mm[Hg] 08/09/2024 07:25 AM Body Weight (37616-5) 169.4 [lb_av ] Body Mass Index (08318-6) 30 kg/m2 08/09/2024 06:06 AM Heart Rate (8867-4) 80 /min Blood Pressure Systolic (8480-6) 120 mm[Hg] Blood Pressure Diastolic (8462-4) 60 mm[Hg] 08/10/2024 10:10 AM Body Weight (99210-9) 172.2 [lb_av ] Body Mass Index (44417-8) 30.5 kg/m2 08/10/2024 09:04 AM Temperature (8310-5) 99.1 [degF] Oxygen Saturation (50084-0) 96 % Respiratory Rate (9279-1) 16 /min Heart Rate (8867-4) 73 /min Blood Pressure Systolic (8480-6) 142 mm[Hg] Blood Pressure Diastolic (8462-4) 73 mm[Hg] 08/10/2024 09:03 AM Heart Rate (8867-4) 73 /min Blood Pressure Systolic (8480-6) 142 mm[Hg] Blood Pressure Diastolic (8462-4) 73 mm[Hg] 08/09/2024 08:04 PM Heart Rate (8867-4) 97 /min Blood Pressure Systolic (8480-6) 152 mm[Hg] Blood Pressure Diastolic (8462-4) 73 mm[Hg] 08/10/2024 06:41 PM Heart Rate (8867-4) 74 /min Blood Pressure Systolic (8480-6) 148 mm[Hg] Blood Pressure Diastolic (8462-4) 79 mm[Hg] 08/11/2024 07:45 AM Body Weight (82223-6) 171.6 [lb_av ] Body Mass Index (77038-0) 30.39 kg/m2 08/11/2024 07:33 AM Heart Rate (8867-4) 83 /min Blood Pressure Systolic (8480-6) 122 mm[Hg] Blood Pressure Diastolic (8462-4) 51 mm[Hg] 08/11/2024 08:02 PM Heart Rate (8867-4) 88 /min Blood Pressure Systolic (8480-6) 139 mm[Hg] Blood Pressure Diastolic (8462-4) 75 mm[Hg] 08/12/2024 08:08 AM Blood Pressure Systolic (8480-6) 1 37 mm[Hg] Blood Pressure Diastolic (8462-4) 56 mm[Hg] 08/12/2024 08:07 AM Heart Rate (8867-4) 88 /min 08/12/2024 10:18 PM Heart Rate (8867-4) 84 /min Blood Pressure Systolic (8480-6) 144 mm[Hg] Blood Pressure Diastolic (8462-4) 61 mm[Hg] 08/13/2024 08:01 AM Heart Rate (8867-4) 79 /min Blood Pressure Systolic (8480-6) 124 mm[Hg] Blood Pressure Diastolic (8462-4) 69 mm[Hg] 08/13/2024 10:28 PM Heart Rate (8867-4) 73 /min Blood Pressure Systolic (8480-6) 119 mm[Hg] Blood Pressure Diastolic (8462-4) 71 mm[Hg] 08/14/2024 08:12 AM Heart Rate (8867-4) 80 /min Blood Pressure Systolic (8480-6) 119 mm[Hg] Blood Pressure Diastolic (8462-4) 69 mm[Hg] 08/14/2024 12:45 PM Body Weight (62603-7) 167.8 [lb_av ] Body Mass Index (61562-0) 29.72 kg/m2 08/14/2024 07:13 PM Heart Rate (8867-4) 77 /min Blood Pressure Systolic (8480-6) 133 mm[Hg] Blood Pressure Diastolic (8462-4) 52 mm[Hg] 08/15/2024 09:00 AM Heart Rate (8867-4) 82 /min Blood Pressure Systolic (8480-6) 134 mm[Hg] Blood Pressure Diastolic (8462-4) 59 mm[Hg] 08/15/2024 11:21 AM Body Weight (62239-5) 169.6 [lb_av ] Body Mass Index (90337-7) 30.04 kg/m2 08/15/2024 06:43 PM Heart Rate (8867-4) 83 /min Blood Pressure Systolic (8480-6) 156 mm[Hg] Blood Pressure Diastolic (8462-4) 55 mm[Hg] 08/16/2024 07:29 AM Heart Rate (8867-4) 73 /min Blood Pressure Systolic (8480-6) 118 mm[Hg] Blood Pressure Diastolic (8462-4) 74 mm[Hg] 08/16/2024 07:23 PM Heart Rate (8867-4) 87 /min Blood Pressure Systolic (8480-6) 149 mm[Hg] Blood Pressure Diastolic (8462-4) 73 mm[Hg] 08/17/2024 08:59 AM Heart Rate (8867-4) 81 /min Blood Pressure Systolic (8480-6) 134 mm[Hg] Blood Pressure Diastolic (8462-4) 69 mm[Hg] 08/17/2024 05:19 PM Temperature (8310-5) 98.8 [degF] Oxygen Saturation (17059-1) 98 % Respiratory Rate (9279-1) 17 /min Heart Rate (8867-4) 81 /min Blood Pressure Systolic (8480-6) 134 mm[Hg] Blood Pressure Diastolic (8462-4) 69 mm[Hg] 08/17/2024 12:13 PM Body Weight (55818-1) 169.9 [lb_av ] Body Mass Index (08454-4) 30.09 kg/m2 08/17/2024 08:04 PM Heart Rate (8867-4) 74 /min Blood Pressure Systolic (8480-6) 141 mm[Hg] Blood Pressure Diastolic (8462-4) 75 mm[Hg] 08/18/2024 09:38 AM Heart Rate (8867-4) 85 /min Blood Pressure Systolic (8480-6) 132 mm[Hg] Blood Pressure Diastolic (8462-4) 67 mm[Hg] 08/18/2024 07:20 PM Heart Rate (8867-4) 86 /min Blood Pressure Systolic (8480-6) 132 mm[Hg] Blood Pressure Diastolic (8462-4) 76 mm[Hg] 08/18/2024 06:41 PM Body Weight (29784-4) 168.8 [lb_av ] Body Mass Index (76002-3) 29.9 kg/m2 08/19/2024 06:42 AM Heart Rate (8867-4) 81 /min Blood Pressure Systolic (8480-6) 122 mm[Hg] Blood Pressure Diastolic (8462-4) 55 mm[Hg] 08/19/2024 03:35 PM Body Weight (27446-2) 172.8 [lb_av ] Body Mass Index (38729-9) 30.61 kg/m2 08/19/2024 09:10 PM Heart Rate (8867-4) 88 /min Blood Pressure Systolic (8480-6) 136 mm[Hg] Blood Pressure Diastolic (8462-4) 59 mm[Hg] 08/20/2024 08:37 AM Heart Rate (8867-4) 82 /min Blood Pressure Systolic (8480-6) 127 mm[Hg] Blood Pressure Diastolic (8462-4) 61 mm[Hg] 08/20/2024 11:36 AM Body Weight (37825-5) 170 [lb_av] Body Mass Index (35108-2) 30.11 kg/m2 08/20/2024 09:28 PM Heart Rate (8867-4) 81 /min Blood Pressure Systolic (8480-6) 125 mm[Hg] Blood Pressure Diastolic (8462-4) 58 mm[Hg] 08/21/2024 08:03 AM Body Weight (12108-7) 170.2 [lb_av ] Body Mass Index (49537-6) 30.15 kg/m2 08/21/2024 08:02 AM Heart Rate (8867-4) 83 /min Blood Pressure Systolic (8480-6) 120 mm[Hg] Blood Pressure Diastolic (8462-4) 62 mm[Hg] 08/21/2024 09:04 PM Heart Rate (8867-4) 85 /min Blood Pressure Systolic (8480-6) 130 mm[Hg] Blood Pressure Diastolic (8462-4) 86 mm[Hg] 08/22/2024 07:09 AM Heart Rate (8867-4) 76 /min Blood Pressure Systolic (8480-6) 116 mm[Hg] Blood Pressure Diastolic (8462-4) 60 mm[Hg] 08/22/2024 11:30 AM Body Weight (24457-6) 170.4 [lb_av ] Body Mass Index (42002-9) 30.18 kg/m2 08/22/2024 06:39 PM Heart Rate (8867-4) 75 /min Blood Pressure Systolic (8480-6) 155 mm[Hg] Blood Pressure Diastolic (8462-4) 73 mm[Hg] 08/23/2024 08:10 AM Body Weight (97015-9) 169 [lb_av] Body Mass Index (87436-8) 29.93 kg/m2 08/23/2024 08:09 AM Heart Rate (8867-4) 88 /min Blood Pressure Systolic (8480-6) 127 mm[Hg] Blood Pressure Diastolic (8462-4) 70 mm[Hg] 08/23/2024 07:35 PM Heart Rate (8867-4) 77 /min Blood Pressure Systolic (8480-6) 152 mm[Hg] Blood Pressure Diastolic (8462-4) 64 mm[Hg] 08/24/2024 08:34 AM Temperature (8310-5) 96.9 [degF] Oxygen Saturation (46496-7) 95 % Respiratory Rate (9279-1) 17 /min Heart Rate (8867-4) 84 /min Blood Pressure Systolic (8480-6) 141 mm[Hg] Blood Pressure Diastolic (8462-4) 80 mm[Hg] 08/24/2024 08:27 AM Heart Rate (8867-4) 74 /min Blood Pressure Systolic (8480-6) 106 mm[Hg] Blood Pressure Diastolic (8462-4) 50 mm[Hg] 08/24/2024 12:58 PM Body Weight (43676-0) 174 [lb_av] Body Mass Index (41291-5) 30.82 kg/m2 08/24/2024 08:02 PM Heart Rate (8867-4) 74 /min Blood Pressure Systolic (8480-6) 132 mm[Hg] Blood Pressure Diastolic (8462-4) 65 mm[Hg] 08/25/2024 06:33 AM Heart Rate (8867-4) 72 /min Blood Pressure Systolic (8480-6) 125 mm[Hg] Blood Pressure Diastolic (8462-4) 60 mm[Hg] 08/25/2024 06:32 AM Body Weight (32270-0) 172.4 [lb_av ] Body Mass Index (95073-8) 30.54 kg/m2 08/25/2024 11:21 PM Heart Rate (8867-4) 77 /min Blood Pressure Systolic (8480-6) 128 mm[Hg] Blood Pressure Diastolic (8462-4) 68 mm[Hg] 08/26/2024 09:02 AM Heart Rate (8867-4) 78 /min Blood Pressure Systolic (8480-6) 122 mm[Hg] Blood Pressure Diastolic (8462-4) 60 mm[Hg] 08/26/2024 10:43 AM Body Weight (78048-4) 169.6 [lb_av ] Body Mass Index (72370-3) 30.04 kg/m2 08/26/2024 07:51 PM Heart Rate (8867-4) 70 /min Blood Pressure Systolic (8480-6) 132 mm[Hg] Blood Pressure Diastolic (8462-4) 66 mm[Hg] 08/27/2024 08:20 AM Heart Rate (8867-4) 82 /min Blood Pressure Systolic (8480-6) 122 mm[Hg] Blood Pressure Diastolic (8462-4) 57 mm[Hg] 08/27/2024 04:17 PM Body Weight (86382-8) 170.3 [lb_av ] Body Mass Index (52500-1) 30.16 kg/m2 08/27/2024 07:29 PM Heart Rate (8867-4) 76 /min Blood Pressure Systolic (8480-6) 133 mm[Hg] Blood Pressure Diastolic (8462-4) 67 mm[Hg] 08/28/2024 08:35 AM Heart Rate (8867-4) 78 /min Blood Pressure Systolic (8480-6) 127 mm[Hg] Blood Pressure Diastolic (8462-4) 61 mm[Hg] 08/28/2024 05:14 PM Body Weight (61264-9) 170.9 [lb_av ] Body Mass Index (71886-0) 30.27 kg/m2 08/28/2024 08:14 PM Heart Rate (8867-4) 71 /min Blood Pressure Systolic (8480-6) 90 mm[Hg] Blood Pressure Diastolic (8462-4) 42 mm[Hg] 08/29/2024 08:56 AM Heart Rate (8867-4) 78 /min Blood Pressure Systolic (8480-6) 124 mm[Hg] Blood Pressure Diastolic (8462-4) 56 mm[Hg] 08/29/2024 02:48 PM Body Weight (36693-7) 172.4 [lb_av ] Body Mass Index (64624-0) 30.54 kg/m2 08/29/2024 07:09 PM Heart Rate (8867-4) 80 /min Blood Pressure Systolic (8480-6) 138 mm[Hg] Blood Pressure Diastolic (8462-4) 78 mm[Hg] 08/30/2024 08:15 AM Heart Rate (8867-4) 76 /min Blood Pressure Systolic (8480-6) 128 mm[Hg] Blood Pressure Diastolic (8462-4) 72 mm[Hg] Body Weight (28912-8) 172 [lb_av] Body Mass Index (34785-9) 30.47 kg/m2 08/30/2024 07:46 PM Heart Rate (8867-4) 81 /min Blood Pressure Systolic (8480-6) 154 mm[Hg] Blood Pressure Diastolic (8462-4) 70 mm[Hg] 08/31/2024 08:48 AM Heart Rate (8867-4) 86 /min Blood Pressure Systolic (8480-6) 138 mm[Hg] Blood Pressure Diastolic (8462-4) 69 mm[Hg] 08/31/2024 05:10 PM Temperature (8310-5) 97.4 [degF] Oxygen Saturation (01638-3) 93 % Respiratory Rate (9279-1) 16 /min Heart Rate (8867-4) 86 /min 08/31/2024 05:23 PM Body Weight (27228-1) 172.8 [lb_av ] Body Mass Index (32935-3) 30.61 kg/m2 08/31/2024 07:25 PM Heart Rate (8867-4) 80 /min Blood Pressure Systolic (8480-6) 139 mm[Hg] Blood Pressure Diastolic (8462-4) 69 mm[Hg] 09/01/2024 07:56 AM Heart Rate (8867-4) 79 /min Blood Pressure Systolic (8480-6) 116 mm[Hg] Blood Pressure Diastolic (8462-4) 53 mm[Hg] 09/01/2024 01:17 PM Body Weight (68663-9) 171.8 [lb_av ] Body Mass Index (36634-2) 30.43 kg/m2 09/01/2024 08:21 PM Heart Rate (8867-4) 78 /min Blood Pressure Systolic (8480-6) 132 mm[Hg] Blood Pressure Diastolic (8462-4) 77 mm[Hg] 09/02/2024 09:31 AM Heart Rate (8867-4) 78 /min Blood Pressure Systolic (8480-6) 120 mm[Hg] Blood Pressure Diastolic (8462-4) 51 mm[Hg] 09/02/2024 02:38 PM Body Weight (51012-9) 174 [lb_av] Body Mass Index (32698-9) 30.82 kg/m2 09/02/2024 07:12 PM Heart Rate (8867-4) 72 /min Blood Pressure Systolic (8480-6) 155 mm[Hg] Blood Pressure Diastolic (8462-4) 80 mm[Hg] 09/03/2024 05:36 PM Body Weight (75287-0) 171.2 [lb_av ] Body Mass Index (26309-8) 30.32 kg/m2 09/03/2024 01:37 PM Heart Rate (8867-4) 84 /min Blood Pressure Systolic (8480-6) 142 mm[Hg] Blood Pressure Diastolic (8462-4) 74 mm[Hg] 09/03/2024 07:09 PM Heart Rate (8867-4) 73 /min Blood Pressure Systolic (8480-6) 144 mm[Hg] Blood Pressure Diastolic (8462-4) 79 mm[Hg] 09/04/2024 08:36 AM Body Weight (40368-9) 168.4 [lb_av ] Body Mass Index (27934-9) 29.83 kg/m2 09/04/2024 08:35 AM Heart Rate (8867-4) 78 /min Blood Pressure Systolic (8480-6) 104 mm[Hg] Blood Pressure Diastolic (8462-4) 60 mm[Hg] 09/04/2024 07:19 PM Heart Rate (8867-4) 71 /min Blood Pressure Systolic (8480-6) 122 mm[Hg] Blood Pressure Diastolic (8462-4) 68 mm[Hg] 09/05/2024 04:43 PM Body Weight (12830-7) 170.1 [lb_av ] Body Mass Index (46699-6) 30.13 kg/m2 09/05/2024 06:33 PM Heart Rate (8867-4) 70 /min Blood Pressure Systolic (8480-6) 138 mm[Hg] Blood Pressure Diastolic (8462-4) 74 mm[Hg] 09/06/2024 07:01 AM Heart Rate (8867-4) 88 /min Blood Pressure Systolic (8480-6) 118 mm[Hg] Blood Pressure Diastolic (8462-4) 56 mm[Hg] 09/06/2024 03:46 PM Body Weight (32061-2) 169.4 [lb_av ] Body Mass Index (64294-3) 30 kg/m2 09/07/2024 09:38 AM Heart Rate (8867-4) 81 /min Blood Pressure Systolic (8480-6) 130 mm[Hg] Blood Pressure Diastolic (8462-4) 58 mm[Hg] 09/06/2024 07:02 PM Heart Rate (8867-4) 76 /min Blood Pressure Systolic (8480-6) 149 mm[Hg] Blood Pressure Diastolic (8462-4) 70 mm[Hg] 09/07/2024 09:39 AM Temperature (8310-5) 98.6 [degF] Oxygen Saturation (83153-9) 94 % Respiratory Rate (9279-1) 16 /min Heart Rate (8867-4) 81 /min Body Weight (67099-0) 169.4 [lb_av] Body Mass Index (84919-9) 30 kg/m2 09/07/2024 08:37 PM Heart Rate (8867-4) 80 /min Blood Pressure Systolic (8480-6) 161 mm[Hg] Blood Pressure Diastolic (8462-4) 70 mm[Hg] 09/08/2024 08:28 AM Heart Rate (8867-4) 79 /min Blood Pressure Systolic (8480-6) 112 mm[Hg] Blood Pressure Diastolic (8462-4) 59 mm[Hg] 09/08/2024 04:56 PM Body Weight (41271-4) 171.6 [lb_av ] Body Mass Index (13740-5) 30.39 kg/m2 09/08/2024 07:22 PM Heart Rate (8867-4) 71 /min Blood Pressure Systolic (8480-6) 122 mm[Hg] Blood Pressure Diastolic (8462-4) 65 mm[Hg] 09/09/2024 09:00 AM Body Weight (12674-8) 169.4 [lb_av ] Body Mass Index (77290-8) 30 kg/m2 09/09/2024 08:20 AM Heart Rate (8867-4) 80 /min Blood Pressure Systolic (8480-6) 134 mm[Hg] Blood Pressure Diastolic (8462-4) 67 mm[Hg] 09/09/2024 08:03 PM Heart Rate (8867-4) 72 /min Blood Pressure Systolic (8480-6) 140 mm[Hg] Blood Pressure Diastolic (8462-4) 75 mm[Hg] 09/10/2024 07:33 AM Heart Rate (8867-4) 71 /min Blood Pressure Systolic (8480-6) 116 mm[Hg] Blood Pressure Diastolic (8462-4) 68 mm[Hg] 09/10/2024 12:13 PM Body Weight (32342-8) 171.9 [lb_av ] Body Mass Index (02832-1) 30.45 kg/m2 09/10/2024 07:11 PM Heart Rate (8867-4) 77 /min Blood Pressure Systolic (8480-6) 135 mm[Hg] Blood Pressure Diastolic (8462-4) 66 mm[Hg] 09/11/2024 08:44 AM Heart Rate (8867-4) 73 /min Blood Pressure Systolic (8480-6) 156 mm[Hg] Blood Pressure Diastolic (8462-4) 67 mm[Hg] 09/11/2024 09:47 AM Body Weight (81145-8) 169.6 [lb_av ] Body Mass Index (95343-8) 30.04 kg/m2 09/11/2024 11:22 PM Heart Rate (8867-4) 77 /min Blood Pressure Systolic (8480-6) 149 mm[Hg] Blood Pressure Diastolic (8462-4) 73 mm[Hg] 09/12/2024 07:56 AM Heart Rate (8867-4) 83 /min Blood Pressure Systolic (8480-6) 130 mm[Hg] Blood Pressure Diastolic (8462-4) 56 mm[Hg] 09/12/2024 03:04 PM Body Weight (83969-8) 172.8 [lb_av ] Body Mass Index (51783-0) 30.61 kg/m2 09/12/2024 06:31 PM Heart Rate (8867-4) 80 /min Blood Pressure Systolic (8480-6) 148 mm[Hg] Blood Pressure Diastolic (8462-4) 74 mm[Hg] 09/13/2024 08:31 AM Heart Rate (8867-4) 80 /min Blood Pressure Systolic (8480-6) 129 mm[Hg] Blood Pressure Diastolic (8462-4) 61 mm[Hg] 09/13/2024 07:55 PM Heart Rate (8867-4) 84 /min Blood Pressure Systolic (8480-6) 150 mm[Hg] Blood Pressure Diastolic (8462-4) 79 mm[Hg] 09/13/2024 06:27 PM Body Weight (23177-1) 171.6 [lb_av ] Body Mass Index (65418-2) 30.39 kg/m2 09/14/2024 07:58 AM Heart Rate (8867-4) 87 /min Blood Pressure Systolic (8480-6) 161 mm[Hg] Blood Pressure Diastolic (8462-4) 74 mm[Hg] 09/14/2024 11:47 AM Body Weight (46841-7) 173.6 [lb_av ] Body Mass Index (02235-4) 30.75 kg/m2 09/14/2024 11:03 AM Temperature (8310-5) 97.7 [degF] Oxygen Saturation (48705-9) 95 % Respiratory Rate (9279-1) 16 /min Heart Rate (8867-4) 87 /min Blood Pressure Systolic (8480-6) 161 mm[Hg] Blood Pressure Diastolic (8462-4) 74 mm[Hg] 09/14/2024 07:32 PM Heart Rate (8867-4) 85 /min Blood Pressure Systolic (8480-6) 162 mm[Hg] Blood Pressure Diastolic (8462-4) 77 mm[Hg] 09/15/2024 07:29 AM Heart Rate (8867-4) 89 /min Blood Pressure Systolic (8480-6) 141 mm[Hg] Blood Pressure Diastolic (8462-4) 54 mm[Hg] 09/15/2024 01:16 PM Body Weight (28370-8) 174.8 [lb_av ] Body Mass Index (45937-3) 30.96 kg/m2 09/15/2024 08:03 PM Heart Rate (8867-4) 78 /min Blood Pressure Systolic (8480-6) 152 mm[Hg] Blood Pressure Diastolic (8462-4) 81 mm[Hg] 09/16/2024 11:30 AM Heart Rate (8867-4) 83 /min Blood Pressure Systolic (8480-6) 186 mm[Hg] Blood Pressure Diastolic (8462-4) 62 mm[Hg] 09/16/2024 11:31 AM Body Weight (63355-4) 173 [lb_av] Body Mass Index (53822-0) 30.64 kg/m2 09/16/2024 07:03 PM Heart Rate (8867-4) 80 /min Blood Pressure Systolic (8480-6) 115 mm[Hg] Blood Pressure Diastolic (8462-4) 57 mm[Hg] 09/17/2024 08:02 AM Heart Rate (8867-4) 88 /min Blood Pressure Systolic (8480-6) 145 mm[Hg] Blood Pressure Diastolic (8462-4) 73 mm[Hg] 09/17/2024 03:54 PM Body Weight (30518-9) 173.2 [lb_av ] Body Mass Index (29891-4) 30.68 kg/m2 09/18/2024 08:08 AM Body Weight (70874-1) 170 [lb_av] Body Mass Index (28878-8) 30.11 kg/m2 09/18/2024 08:07 AM Heart Rate (8867-4) 81 /min Blood Pressure Systolic (8480-6) 138 mm[Hg] Blood Pressure Diastolic (8462-4) 59 mm[Hg] 09/17/2024 07:22 PM Heart Rate (8867-4) 73 /min Blood Pressure Systolic (8480-6) 118 mm[Hg] Blood Pressure Diastolic (8462-4) 68 mm[Hg] 09/18/2024 08:54 PM Heart Rate (8867-4) 74 /min Blood Pressure Systolic (8480-6) 125 mm[Hg] Blood Pressure Diastolic (8462-4) 67 mm[Hg] 09/19/2024 07:50 AM Heart Rate (8867-4) 86 /min Blood Pressure Systolic (8480-6) 130 mm[Hg] Blood Pressure Diastolic (8462-4) 70 mm[Hg] 09/19/2024 11:54 AM Body Weight (91274-3) 171.2 [lb_av ] Body Mass Index (75148-5) 30.32 kg/m2 09/19/2024 06:27 PM Heart Rate (8867-4) 80 /min Blood Pressure Systolic (8480-6) 130 mm[Hg] Blood Pressure Diastolic (8462-4) 80 mm[Hg] 09/20/2024 02:56 PM Body Weight (15481-9) 170.2 [lb_av ] Body Mass Index (05352-0) 30.15 kg/m2 09/20/2024 10:11 AM Heart Rate (8867-4) 79 /min Blood Pressure Systolic (8480-6) 131 mm[Hg] Blood Pressure Diastolic (8462-4) 68 mm[Hg] 09/20/2024 07:35 PM Heart Rate (8867-4) 76 /min Blood Pressure Systolic (8480-6) 154 mm[Hg] Blood Pressure Diastolic (8462-4) 69 mm[Hg] 09/21/2024 07:32 AM Heart Rate (8867-4) 65 /min Blood Pressure Systolic (8480-6) 120 mm[Hg] Blood Pressure Diastolic (8462-4) 53 mm[Hg] 09/21/2024 09:46 AM Temperature (8310-5) 97.7 [degF] Respiratory Rate (9279-1) 18 /min Heart Rate (8867-4) 65 /min 09/21/2024 09:38 AM Body Weight (27608-9) 169 [lb_av] Body Mass Index (42888-2) 29.93 kg/m2 09/21/2024 07:06 PM Heart Rate (8867-4) 81 /min Blood Pressure Systolic (8480-6) 153 mm[Hg] Blood Pressure Diastolic (8462-4) 73 mm[Hg] 09/22/2024 07:52 AM Heart Rate (8867-4) 69 /min Blood Pressure Systolic (8480-6) 121 mm[Hg] Blood Pressure Diastolic (8462-4) 68 mm[Hg] 09/22/2024 05:34 PM Body Weight (16279-9) 171.4 [lb_av ] Body Mass Index (23665-7) 30.36 kg/m2 09/22/2024 06:32 PM Heart Rate (8867-4) 80 /min Blood Pressure Systolic (8480-6) 150 mm[Hg] Blood Pressure Diastolic (8462-4) 76 mm[Hg] 09/23/2024 06:39 AM Heart Rate (8867-4) 68 /min Blood Pressure Systolic (8480-6) 115 mm[Hg] Blood Pressure Diastolic (8462-4) 58 mm[Hg] 09/23/2024 10:40 AM Body Weight (85452-4) 171 [lb_av] Body Mass Index (57261-7) 30.29 kg/m2 09/23/2024 10:20 PM Heart Rate (8867-4) 65 /min Blood Pressure Systolic (8480-6) 132 mm[Hg] Blood Pressure Diastolic (8462-4) 65 mm[Hg] 09/24/2024 03:06 PM Body Weight (30532-4) 171.3 [lb_av ] Body Mass Index (26904-2) 30.34 kg/m2 09/24/2024 09:28 AM Heart Rate (8867-4) 84 /min Blood Pressure Systolic (8480-6) 127 mm[Hg] Blood Pressure Diastolic (8462-4) 69 mm[Hg] 09/24/2024 11:01 PM Heart Rate (8867-4) 67 /min Blood Pressure Systolic (8480-6) 124 mm[Hg] Blood Pressure Diastolic (8462-4) 82 mm[Hg] 09/25/2024 08:32 AM Body Weight (30914-6) 169.4 [lb_av ] Body Mass Index (07842-6) 30 kg/m2 09/25/2024 07:06 AM Heart Rate (8867-4) 77 /min Blood Pressure Systolic (8480-6) 11 mm[Hg] Blood Pressure Diastolic (8462-4) 55 mm[Hg] 09/25/2024 10:09 PM Heart Rate (8867-4) 68 /min Blood Pressure Systolic (8480-6) 115 mm[Hg] Blood Pressure Diastolic (8462-4) 76 mm[Hg] 09/26/2024 09:20 AM Heart Rate (8867-4) 86 /min Blood Pressure Systolic (8480-6) 102 mm[Hg] Blood Pressure Diastolic (8462-4) 60 mm[Hg] 09/26/2024 05:29 PM Body Weight (31313-9) 173.4 [lb_av ] Body Mass Index (04299-0) 30.71 kg/m2 Social History No smoking Hx information available Encounters Type CPT Code Date Location Provider Indication s encounter report 09/19/2014 11:15 AM VIKAS WRAY MD Advance Directives Directive Description Verification Date Supporting Document(s) Other Directive
[2024-11-19 03:51] VITALS: BP 174/65; PULSE 86; O2SAT 96
--- NOTE | 2024-11-19 04:07 | XRR_ITS ---
PROCEDURE INFORMATION: Exam: XR Right Foot Exam date and time: 11/19/2024 4:26 AM Age: 74 years old Clinical indication: Injury or trauma; Blunt trauma; Right; EMS arrival from [facility] for [facility]. C/O RT foot pain. ; Additional info: Fall, injury, pain, swelling TECHNIQUE: Imaging protocol: Radiologic exam of the right foot. Views: 1 or 2 views. COMPARISON: No relevant prior studies available. FINDINGS: Bones/joints: There is no acute fracture or dislocation. If symptoms persist, follow-up imaging in several days may be useful to exclude an occult or subtle fracture. Diffuse osteopenia somewhat limits evaluation, as does less than optimal positioning Soft tissues: No significant acute finding. XR/XR foot RT 2V 10925 IMPRESSION: 1. No acute fracture or dislocation. 2. Other details discussed above.
[2024-11-19 04:13] VITALS: RESP 18; O2SAT 97
[2024-11-19] MEDS: oxyCODONE-APAP 5-325 mg Tablet 1 TAB PO (04:13)
[2024-11-19 04:30] VITALS: BP 162/61; PULSE 85; O2SAT 96
[2024-11-19 05:37] VITALS: BP 159/61; PULSE 85; O2SAT 96
--- NOTE | 2024-11-19 06:56 | ED_ITS ---
HPI - Fall General: Chief Complaint: Fall Stated Complaint: fall, head pain Time Seen by Provider: 11/19/24 02:54 History of Present Illness: Patient with a history of multiple strokes and chronic right-sided paralysis (dominant side), aphasia, and use of an electric wheelchair presents after a fall that occurred when attempting to get up without assistance during the night. The patient is a known high fall risk due to right-sided paralysis and limited mobility. The fall resulted in new pain and swelling at the tip of the right foot, an area where the patient previously had little to no sensation. The right leg is wrapped tightly, reportedly to manage swelling, but there are no known open wounds. The patient denies recent confusion, weakness beyond baseline, or signs of infection such as UTI. Both legs have intermittent swelling, sometimes worse than others. The patient has chronic aphasia but is able to communicate intermittently. No head trauma or loss of consciousness was reported. The patient?s caregiver is present and provides additional history. Related Data Home Medications ?Medication ?Instructions ?Recorded ?Confirmed acetaminophen 325 mg capsule 325 mg PO QID PRN 4 (Tylenol) bisacodyl ea miscellaneous 07/08/23 diclofenac sodium 1 % topical gel 2 g topical QID 06/25 09/15 diphenhydramine HCl 25 mg tablet 25 mg PO TID PRN 06/25 09/15 ([place] Plus Allergy) fluoxetine 10 mg capsule 10 mg PO DAILY 07/08/23 furosemide 40 mg tablet (Lasix) 40 mg PO DAILY 4 spironolactone 25 mg tablet 25 mg PO DAILY 07/08/23 vitamins A,C,F-snmb-tiyprd 4,296 1 cap PO BID 07/08/23 mcg-226 mg-90 mg capsule (PreserVision AREDS) Previous Rx's ?Medication ?Instructions ?Recorded oxycodone-acetaminophen 5 mg-325 1 tab PO Q8H PRN pain #8 tabs 11/19/24 mg tablet (Percocet) Allergies Allergy/AdvReac Type Severity Reaction Status Date / Time No Known Allergies Allergy Verified 07/08/23 13:10 [facility]: Medical History (Updated 11/19/24 @ 04:58 by Margarito Reyes MD) GERD (gastroesophageal reflux disease) -on PPI Overactive bladder Anemia HLD (hyperlipidemia) -lipid panel ordered -on statin HTN (hypertension) -VSS; continue to monitor -on BB Multiple sclerosis Dementia Hemiplegia and hemiparesis following cerebral infarction affecting right dominant side CVA (cerebral vascular accident) -prior CVA with residual right sided weakness, decreased sensation -noted CT head reported as 5.8 cm subacute non-hemorrhagic infarct in left parietal lobe, stable left hemispheric encephalomalacia. MRI head reported as acute/subacute infarct involving L temporal lobe, numerous flow voids throughout the L cerebral hemisphere consistent with AVM. -Echo: EF=68%, G1DD, no RWMA, trace AR -carotid ultrasound with no significant stenosis -Telemetry monitoring -VSS -Fall/aspiration precautions -PT/ST/OT evaluations appreciated -Continue aspirin, statin added -Troponins noted with no significant delta -noted TSH, A1c, lipid panel Family History Mother Breast cancer Denies family history of Colon cancer Ovarian cancer Prostate cancer Diabetes Heart disease Hypercholesteremia Hypertension Uterine cancer Thyroid disease Stroke Social History Smoking and tobacco/nicotine status: former use of tobacco/nicotine Physical Exam Const: COMMON NORMALS: no acute distress HENMT: OTHER: Acute appearing swelling and ecchymosis of the right upper orbital margin. No visual involvement. Full range of motion of both eyes. Eye: COMMON NORMALS: Equal, round and reactive pupils present, EOMs intact bilaterally and no scleral icterus PUPIL: Yes Equal, round and reactive pupils present Resp: COMMON NORMALS: normal respiratory effort and No retractions Cardio: COMMON NORMALS: regular rate, regular rhythm and No murmurs present (Cardio) RATE: regular rate RHYTHM: regular rhythm GI: COMMON NORMALS: Normal to inspection, nondistended, normoactive bowel sounds present, Soft to palpation and non-tender PALPATION: Yes Soft to palpation Neuro: OTHER: Stable, unchanged deficits of strength and sensation of the right upper and lower extremities. Right hand is retracted. Speech is somewhat garbled but she can express what she needs to confidently. Skin: COMMON NORMALS: no rashes or lesions noted GENERAL SKIN EXAM: no rashes or lesions noted Course Vital Signs: Vital signs: Vital Signs Temperature 98 F 11/19/24 02:55 Pulse Rate 85 11/19/24 05:37 Respiratory Rate 18 11/19/24 04:13 Blood Pressure 159/61 11/19/24 05:37 Pulse Oximetry 96 11/19/24 05:37 MDM - Fall Medical Decision Making CT head shows nothing acute. Patient suffered a contusion to the right side of the face. She also suffered a contusion to the right foot. X-ray of the foot shows no evidence of fracture or dislocation. Pain is better with treatment. She will be discharged back to her custodial in stable and improved condition with a short course of pain medicine. Family in the room agrees with the plan. Lab Data Radiology Impressions Cervical Spine CT 11/19/24 02:49 IMPRESSION: 1. No definite acute fracture or subluxation by CT. 2. Degenerative/arthritic changes above. 3. Other findings discussed above. Head CT 11/19/24 02:49 IMPRESSION: 1. No acute intracranial hemorrhage or mass effect. 2. No definite acute infarct by CT, see above. 3. Chronic changes of old left-sided infarcts and dystrophic calcifications. 4. Other findings discussed above. Foot X-Ray 11/19/24 04:07 IMPRESSION: 1. No acute fracture or dislocation. 2. Other details discussed above. All radiology interpretation(s) finalized by discharge Discharge Plan Discharge Patient Disposition: Home Clinical Impression: Contusion of face, Contusion of right foot, Fall Condition: Stable Prescriptions: New oxycodone-acetaminophen [Percocet] 5-325 mg tablet 1 tab PO Q8H PRN (Reason: pain) Qty: 8 0RF No Action diphenhydramine HCl [[place] Plus Allergy] 25 mg tablet 25 mg PO TID PRN diclofenac sodium 1 % gel 2 g topical QID Rx Instructions: apply to single elbow, wrist or hand; for hand includes palm/fingers/back of hand bisacodyl Kit miscellaneous fluoxetine 10 mg capsule 10 mg PO DAILY furosemide [Lasix] 40 mg tablet 40 mg PO DAILY PreserVision AREDS 4,296 mcg-226 mg-90 mg capsule 1 cap PO BID spironolactone 25 mg tablet 25 mg PO DAILY acetaminophen [Tylenol] 325 mg capsule 325 mg PO QID PRN Discharge Orders: Discharge ED (Routine); Ordered 11/19/24 Ordered By: Margarito Reyes Referrals: Diana Cosme PA [Primary Care Provider, [facility]] Discharge Activity: Increase activity as tolerated Patient Instructions: Foot Contusion (ED), Facial Contusion (ED), Patient Portal & Marylin Instructions Activity Restrictions/Additional Instructions: fortunately, CT scan of the head and neck show no acute fracture, intracranial bleed, or abnormality requiring hospitalization or surgical intervention. X-ray of the foot similarly shows no evidence of fracture or dislocation. I suspect the pain from both are caused by contusions. Please take the prescribed pain medication as needed for the next few days to keep pain under control. Print Language: Latvian Coding Level of Care Code ED Manager Of Training for Linn Bain
== END 2024-11-19 05:30 | disposition home or self-care (01) ==
PROVIDERS: Emergency Provider Student in an Organized Health Care Education/Training Program; PCP Physician Assistant
DX: S00.83XA Contusion of other part of head, initial encounter (principal); S90.31XA Contusion of right foot, initial encounter; W19.XXXA Unspecified fall, initial encounter; Z87.891 Personal history of nicotine dependence; I10 Essential (primary) hypertension; Z86.73 Personal history of transient ischemic attack (TIA), and cerebral infarction without residual deficits
CPT/HCPCS: 70450; 72125; 73620; 99284; J9999

== ENCOUNTER 2024-11-20 11:52 | Observation (INO) | payer MEDICARE, MEDICAID, SELFPAY ==
[2024-11-20] VITALS (15 sets, daily range): BP systolic 126–164; BP diastolic 52–92; PULSE 67–91; RESP 15–18; TEMP 36.7–37.1; O2SAT 91–98; BMI 28.3
--- OUTSIDE RECORDS SUMMARY | 2024-11-20 11:57 | XMS_ITS | Clinical Summary ---
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
--- OUTSIDE RECORDS SUMMARY | 2024-11-20 11:57 | XMS_ITS | Encounter Summary ---
Author Organization [facility] Address [address] [place] [address] Care Team Providers Care Housing Assistant Name Role Phone Unavailable Primary Care Provider Unavailabl e Encounter Details Date Type Department Care Team (Late st Contact Info) Description 12/07/2019 Lab Requisition [facility] Services [address] [place] [address] Bernabe Cuellar, [address] [place] [address] Social History Tobacco Use Types [...] - 150.0 ng/mL 12/07/2019 2:50 PM CDT [facility] Blood Collection / Unknown 12/07/2019 8:48 AM CDT 12/07/2019 2:26 PM CDT Narrative [facility] - 12/07/2019 2:50 PM CDT Premenopausal Range 10-150 ng/mL Postmenopausal Range 10-291 ng/mL Bernabe Cuellar DO CHEMISTRY ORDERABLES Final Result Performing Organization Address City/[facility]/ZIP Co de Phone Number [address] [address] * (ABNORMAL) IRON, TIBC, AND PERCENT SATURATION (12/07/2019 8:48 AM CDT) IRON 79 37 - 145 ug/dL 12/07/2019 2:50 PM CDT [facility] TIBC 238(L) 250 - 450 ug/dL 12/07/2019 2:50 PM CDT [facility] IRON % SATURATION 33 15 - 60 % 12/07/2019 2:50 PM CDT [facility] Blood Collection / Unknown 12/07/2019 8:48 AM CDT 12/07/2019 2:26 PM CDT Bernabe Cuellar DO CHEMISTRY ORDERABLES Final Result Performing Organization Address [facility]/ZIP Co de Phone Number [address] [address] * TSH (12/07/2019 8:48 AM CDT) TSH 1.38 0.27 - 4.20 uIU/mL 12/07/2019 2:50 PM CDT [facility] Blood Collection / Unknown 12/07/2019 8:48 AM CDT 12/07/2019 2:26 PM CDT Bernabe Cuellar DO CHEMISTRY ORDERABLES Final Result [facility] [address] [place] [address] * (ABNORMAL) BASIC METABOLIC PANEL (12/07/2019 8:48 AM CDT) SODIUM 144 136 - 145 mmol/L 12/07/2019 2:50 PM CDT [facility] POTASSIUM 4.5 3.5 - 5.1 mmol/L 12/07/2019 2:50 PM CDT [facility] CHLORIDE 109(H) 98 - 107 mmol/L 12/07/2019 2:50 PM CDT [facility] CO2 22 22 - 29 mmol/L 12/07/2019 2:50 PM CDT [facility] CALCIUM 10.1 8.8 - 10.2 mg/dL 12/07/2019 2:50 PM CDT [facility] BUN 38(H) 8 - 23 mg/dL 12/07/2019 2:50 PM CDT [facility] CREATININE 1.43(H) 0.51 - 0.95 mg/dL 12/07/2019 2:50 PM CDT [facility] GLUCOSE 117(H) 74 - 99 mg/dL 12/07/2019 2:50 PM CDT [facility] GFR 37(L) >=60 mL/min/1. 73 sq meter 12/07/2019 2:50 PM CDT [facility] Comment: eGFR has not been validated for [...] 73 sq meter 12/07/2019 2:50 PM CDT [facility] ANION GAP 13 9 - 20 mmol/L 12/07/2019 2:50 PM CDT [facility] Blood Collection / Unknown 12/07/2019 8:48 AM CDT 12/07/2019 2:26 PM CDT Bernabe Cuellar DO CHEMISTRY ORDERABLES Final Result [facility] [address] [place] [address] * (ABNORMAL) CBC WITH DIFFERENTIAL (12/07/2019 8:48 AM CDT) Pathologist [facility] WBC 9.0 4.8 - 10.8 K/uL 12/07/2019 2:27 PM CDT [facility] RBC 4.36 4.20 - 5.40 M/uL 12/07/2019 2:27 PM CDT [facility] HEMOGLOBIN 13.0 12.0 - 16.0 g/dL 12/07/2019 2:27 PM CDT [facility] HEMATOCRIT 40.8 36.0 - 46.0 % 12/07/2019 2:27 PM CDT [facility] MCV 93.6 84.0 - 103.0 fL 12/07/2019 2:27 PM CDT [facility] MCH 29.8 27.0 - 34.0 pg 12/07/2019 2:27 PM CDT [facility] MCHC 31.9 30.0 - 35.0 g/dL 12/07/2019 2:27 PM CDT [facility] RDW 13.3 11.0 - 14.5 % 12/07/2019 2:27 PM CDT [facility] RDW-STDEV 45.2 37.0 - 54.0 fL 12/07/2019 2:27 PM CDT [facility] PLATELETS 256 140 - 440 K/uL 12/07/2019 2:27 PM CDT [facility] MPV 10.4 8.9 - 12.8 fL 12/07/2019 2:27 PM CDT [facility] NEUTROPHILS 69 42 - 75 % 12/07/2019 2:27 PM CDT [facility] LYMPHOCYTES 19(L) 24 - 44 % 12/07/2019 2:27 PM CDT [facility] MONOCYTES 8 2 - 10 % 12/07/2019 2:27 PM CDT [facility] EOSINOPHILS 2 0 - 7 % 12/07/2019 2:27 PM CDT [facility] BASOPHILS 1 0 - 1 % 12/07/2019 2:27 PM CDT [facility] IMMATURE GRANULOCYTES 1 0 - 2 % 12/07/2019 2:27 PM CDT [facility] NEUTROPHIL ABSOLUTE 6.21 2.00 - 8.00 K/uL 12/07/2019 2:27 PM CDT [facility] LYMPHOCYTE ABSOLUTE 1.74 1.20 - 4.00 K/uL 12/07/2019 2:27 PM CDT [facility] MONOCYTE ABSOLUTE 0.73(H) 0.10 - 0.60 K/uL 12/07/2019 2:27 PM CDT [facility] EOSINOPHIL ABSOLUTE 0.19 0.00 - 0.70 K/uL 12/07/2019 2:27 PM CDT [facility] BASOPHILS ABSOLUTE 0.07 0.00 - 0.20 K/uL 12/07/2019 2:27 PM CDT [facility] IMMATURE GRANULOCYTES ABSOLUTE 0.05 0.00 - 0.10 K/uL 12/07/2019 2:27 PM CDT [facility] Blood Collection / Unknown 12/07/2019 8:48 AM CDT 12/07/2019 2:24 PM CDT us Bernabe Cuellar DO HEMATOLOGY ORDERABLES Final Result [facility] [address] [address] documented in this encounter Visit Diagnoses Not on filedocumented in this encounter
--- OUTSIDE RECORDS SUMMARY | 2024-11-20 11:57 | XMS_ITS | Continuity of Care Document ---
Author Organization [facility] ([facility]) Address [address] [place] [address] Insurance Providers Payer Plan Claims Address Claims Phone Policy Number Group Number Relation Employer Guarantor Name Guarantor Guarantor Address Guarantor Phone HUMAN Bal[employer] [id number] [facility] [address] [address], [facility] [place] [address] tel:[phone] Self Lee Ann Armond 1950 [address] [place] [address] MEDIC AID [id number] Self Lee Ann Armond 1950 [address] [place] [address] Problems Condition ICD9 code ICD10 code SNOMED [...] Unspecified osteoarthritis, unspecified site M19.90 09/19/2014 Active [facility] (current) use of aspirin Z79.82 05/25/2018 Active [...] Status acetaminophen 325 mg tablet (acetaminophen) 2 wamb=485 MG, oral, Every 6 Hours - PRN, [...] 75 mm[Hg] 05/03/2024 09:19 AM Body Weight (06618-5) 163.4 [lb_av ] Body Mass Index (41141-7) 28.94 kg/m2 05/03/2024 07:28 AM Heart Rate (8867-4) 71 /min Blood Pressure Systolic (8480-6) 104 mm[Hg] Blood Pressure Diastolic (8462-4) 58 mm[Hg] 05/02/2024 09:18 PM Heart Rate (8867-4) 81 /min Blood Pressure Systolic (8480-6) 147 mm[Hg] Blood Pressure Diastolic (8462-4) 62 mm[Hg] 05/02/2024 09:43 AM Body Weight (60269-1) 168.6 [lb_av ] Body Mass Index (20129-6) 29.86 kg/m2 05/02/2024 07:31 AM Heart Rate (8867-4) 81 /min Blood Pressure Systolic (8480-6) 116 mm[Hg] Blood Pressure Diastolic (8462-4) 62 mm[Hg] 05/01/2024 07:24 PM Heart Rate (8867-4) 71 /min Blood Pressure Systolic (8480-6) 119 mm[Hg] Blood Pressure Diastolic (8462-4) 68 mm[Hg] 05/01/2024 11:32 AM Body Weight (66685-5) 166.7 [lb_av ] Body Mass Index (69436-3) 29.53 kg/m2 05/01/2024 08:42 AM Heart Rate (8867-4) 79 /min Blood Pressure Systolic (8480-6) 124 mm[Hg] Blood Pressure Diastolic (8462-4) 72 mm[Hg] 04/30/2024 07:23 PM Heart Rate (8867-4) 71 /min Blood Pressure Systolic (8480-6) 119 mm[Hg] Blood Pressure Diastolic (8462-4) 71 mm[Hg] 04/30/2024 09:10 AM Body Weight (93497-6) 167 [lb_av] Body Mass Index (42097-5) 29.58 kg/m2 04/30/2024 09:01 AM Heart Rate (8867-4) 82 /min Blood Pressure Systolic (8480-6) 123 mm[Hg] Blood Pressure Diastolic (8462-4) 74 mm[Hg] 04/29/2024 07:02 PM Heart Rate (8867-4) 74 /min Blood Pressure Systolic (8480-6) 133 mm[Hg] Blood Pressure Diastolic (8462-4) 71 mm[Hg] 04/29/2024 08:53 AM Body Weight (38908-6) 165.6 [lb_av ] Body Mass Index (48956-1) 29.33 kg/m2 04/29/2024 07:57 AM Heart Rate (8867-4) 80 /min Blood Pressure Systolic (8480-6) 126 mm[Hg] Blood Pressure Diastolic (8462-4) 60 mm[Hg] 04/28/2024 09:15 AM Body Weight (75355-4) 165.4 [lb_av ] Body Mass Index (46949-4) 29.3 kg/m2 04/27/2024 09:38 AM Body Weight (60929-5) 163.2 [lb_av ] Body Mass Index (82674-7) 28.91 kg/m2 04/27/2024 06:44 AM Temperature (8310-5) 98 [degF] Oxygen Saturation (43833-2) 90 % Respiratory Rate (9279-1) 18 /min 04/26/2024 09:34 AM Body Weight (93247-2) 163.2 [lb_av ] Body Mass Index (12541-3) 28.91 kg/m2 04/25/2024 09:01 AM Body Weight (17539-3) 162.4 [lb_av ] Body Mass Index (47454-8) 28.76 kg/m2 04/24/2024 10:02 AM Body Weight (15100-0) 163.6 [lb_av ] Body Mass Index (79717-4) 28.98 kg/m2 04/23/2024 09:26 AM Body Weight (23699-6) 163.8 [lb_av ] Body Mass Index (42199-6) 29.01 kg/m2 04/22/2024 07:40 AM Body Weight (11532-5) 163.2 [lb_av ] Body Mass Index (53540-6) 28.91 kg/m2 04/21/2024 09:20 AM Body Weight (91306-0) 167 [lb_av] Body Mass Index (53921-8) 29.58 kg/m2 04/20/2024 08:27 AM Temperature (8310-5) 98.7 [degF] Oxygen Saturation (96474-8) 93 % Respiratory Rate (9279-1) 18 /min 04/20/2024 08:26 AM Body Weight (71970-4) 162.8 [lb_av ] Body Mass Index (23365-9) 28.84 kg/m2 04/19/2024 08:32 AM Body Weight (08704-9) 163.8 [lb_av ] Body Mass Index (20729-4) 29.01 kg/m2 04/18/2024 06:39 AM Body Weight (96949-5) 164.2 [lb_av ] Body Mass Index (87293-8) 29.08 kg/m2 04/17/2024 10:53 AM Body Weight (28754-1) 166.4 [lb_av ] Body Mass Index (66403-7) 29.47 kg/m2 04/16/2024 04:28 PM Body Weight (99493-6) 166.2 [lb_av ] Body Mass Index (57180-4) 29.44 kg/m2 04/15/2024 04:09 PM Body Weight (68751-6) 166.2 [lb_av ] Body Mass Index (14588-5) 29.44 kg/m2 04/14/2024 06:46 AM Body Weight (35696-0) 163.4 [lb_av ] Body Mass Index (01306-1) 28.94 kg/m2 04/13/2024 12:20 PM Body Weight (93172-9) 166.6 [lb_av ] Body Mass Index (37198-5) 29.51 kg/m2 04/13/2024 09:18 AM Temperature (8310-5) 98.2 [degF] Oxygen Saturation (39973-9) 96 % Respiratory Rate (9279-1) 16 /min 04/12/2024 11:19 AM Body Weight (13925-3) 166.2 [lb_av ] Body Mass Index (61587-7) 29.44 kg/m2 04/11/2024 09:55 AM Body Weight (27531-3) 167 [lb_av] Body Mass Index (25406-5) 29.58 kg/m2 04/10/2024 04:03 PM Body Weight (28346-5) 167.1 [lb_av ] Body Mass Index (73421-2) 29.6 kg/m2 04/09/2024 04:23 PM Body Weight (87667-6) 167.4 [lb_av ] Body Mass Index (07378-7) 29.65 kg/m2 04/08/2024 03:27 PM Body Weight (53222-1) 167.2 [lb_av ] Body Mass Index (27911-7) 29.61 kg/m2 04/07/2024 11:07 AM Body Weight (42197-8) 164.2 [lb_av ] Body Mass Index (64236-7) 29.08 kg/m2 04/06/2024 09:47 AM Temperature (8310-5) 98.1 [degF] Oxygen Saturation (48776-5) 97 % Respiratory Rate (9279-1) 17 /min Body Weight (81819-9) 164.8 [lb_av] Body Mass Index (50565-9) 29.19 kg/m2 04/05/2024 07:21 AM Body Weight (38631-7) 163.8 [lb_av ] Body Mass Index (80797-8) 29.01 kg/m2 04/04/2024 05:13 PM Body Weight (25222-4) 167.8 [lb_av ] Body Mass Index (82158-1) 29.72 kg/m2 04/02/2024 03:27 PM Body Weight (61231-3) 172.1 [lb_av ] Body Mass Index (19945-2) 30.48 kg/m2 04/01/2024 03:02 PM Body Weight (54617-6) 172.8 [lb_av ] Body Mass Index (03255-3) 30.61 kg/m2 03/31/2024 04:38 PM Body Weight (14962-7) 173.2 [lb_av ] Body Mass Index (62145-8) 30.68 kg/m2 03/30/2024 01:50 PM Body Weight (31586-0) 173.2 [lb_av ] Body Mass Index (71514-0) 30.68 kg/m2 03/30/2024 10:41 AM Temperature (8310-5) 97.6 [degF] Oxygen Saturation (41791-6) 95 % Respiratory Rate (9279-1) 16 /min 03/29/2024 05:46 PM Body Weight (12773-4) 168 [lb_av] Body Mass Index (03545-3) 29.76 kg/m2 03/28/2024 01:15 PM Body Weight (46108-3) 167.4 [lb_av ] Body Mass Index (09521-0) 29.65 kg/m2 03/27/2024 08:34 AM Body Weight (01902-6) 162.6 [lb_av ] Body Mass Index (91661-7) 28.8 kg/m2 03/26/2024 03:00 PM Body Weight (56293-8) 162.2 [lb_av ] Body Mass Index (51904-9) 28.73 kg/m2 03/25/2024 11:31 AM Body Weight (14777-4) 162 [lb_av] Body Mass Index (65273-2) 28.69 kg/m2 03/24/2024 11:29 PM Temperature (8310-5) 99.3 [degF] 03/24/2024 03:21 PM Body Weight (57688-5) 163.1 [lb_av ] Body Mass Index (64263-4) 28.89 kg/m2 03/24/2024 10:42 AM Temperature (8310-5) 99.9 [degF] 2024 10:56 PM Temperature (8310-5) 98.3 [degF] 2024 09:53 AM Temperature (8310-5) 98.6 [degF] Oxygen Saturation (33931-3) 93 % Respiratory Rate (9279-1) 16 /min 2024 09:49 AM Temperature (8310-5) 98.6 [degF] Body Weight (87823-6) 163.2 [lb_av] Body Mass Index (43926-6) 28.91 kg/m2 03/22/2024 09:01 AM Body Weight (40470-1) 162.6 [lb_av ] Body Mass Index (08660-5) 28.8 kg/m2 03/21/2024 12:18 PM Body Weight (15643-4) 164.8 [lb_av ] Body Mass Index (43717-3) 29.19 kg/m2 03/19/2024 06:59 PM Body Weight (76447-9) 166.2 [lb_av ] Body Mass Index (26956-0) 29.44 kg/m2 03/16/2024 11:24 AM Body Weight (02446-1) 163.4 [lb_av ] Body Mass Index (32136-1) 28.94 kg/m2 03/16/2024 09:27 AM Oxygen Saturation (84376-6) 98 % Respiratory Rate (9279-1) 16 /min 03/14/2024 10:19 AM Body Weight (68507-6) 161.8 [lb_av ] Body Mass Index (78571-5) 28.66 kg/m2 03/13/2024 04:14 PM Body Weight (32755-2) 161 [lb_av] Body Mass Index (58887-4) 28.52 kg/m2 03/12/2024 04:00 PM Body Weight (07287-3) 161.2 [lb_av ] Body Mass Index (55483-6) 28.55 kg/m2 03/11/2024 10:34 AM Body Weight (14859-1) 161.4 [lb_av ] Body Mass Index (16509-8) 28.59 kg/m2 03/10/2024 03:31 PM Body Weight (56566-6) 162.8 [lb_av ] Body Mass Index (51658-8) 28.84 kg/m2 03/09/2024 12:09 PM Body Weight (41569-0) 164.4 [lb_av ] Body Mass Index (57751-5) 29.12 kg/m2 03/09/2024 09:29 AM Oxygen Saturation (97306-1) 92 % Respiratory Rate (9279-1) 18 /min 03/08/2024 04:12 PM Body Weight (01680-7) 165 [lb_av] Body Mass Index (61117-9) 29.23 kg/m2 03/07/2024 08:59 AM Body Weight (35981-0) 165.4 [lb_av ] Body Mass Index (32561-0) 29.3 kg/m2 03/06/2024 03:40 PM Body Weight (26549-9) 164.8 [lb_av ] Body Mass Index (07749-7) 29.19 kg/m2 03/05/2024 04:32 PM Body Weight (12628-1) 165.9 [lb_av ] Body Mass Index (60710-9) 29.38 kg/m2 03/04/2024 03:01 PM Body Weight (84789-0) 165.6 [lb_av ] Body Mass Index (39428-7) 29.33 kg/m2 03/03/2024 08:45 AM Body Weight (78688-6) 163 [lb_av] Body Mass Index (35315-2) 28.87 kg/m2 03/02/2024 10:30 AM Oxygen Saturation (47389-1) 98 % Respiratory Rate (9279-1) 17 /min Body Weight (73665-6) 162.2 [lb_av] Body Mass Index (92980-6) 28.73 kg/m2 02/29/2024 12:55 PM Body Weight (81445-0) 165.8 [lb_av ] Body Mass Index (11198-6) 29.37 kg/m2 02/28/2024 11:25 AM Body Weight (19612-3) 163.6 [lb_av ] Body Mass Index (51164-1) 28.98 kg/m2 02/27/2024 04:11 PM Body Weight (71838-2) 163 [lb_av] Body Mass Index (30294-2) 28.87 kg/m2 02/26/2024 10:53 AM Body Weight (18518-8) 163 [lb_av] Body Mass Index (52033-0) 28.87 kg/m2 02/25/2024 10:12 AM Body Weight (18410-2) 163.2 [lb_av ] Body Mass Index (85351-7) 28.91 kg/m2 02/24/2024 02:20 PM Body Weight (39543-2) 163 [lb_av] Body Mass Index (54491-3) 28.87 kg/m2 02/24/2024 02:13 PM Oxygen Saturation (31233-5) 97 % Respiratory Rate (9279-1) 16 /min 02/23/2024 07:39 AM Body Weight (84646-3) 162.4 [lb_av ] Body Mass Index (24476-5) 28.76 kg/m2 02/22/2024 10:03 AM Body Weight (66288-5) 163.4 [lb_av ] Body Mass Index (79652-6) 28.94 kg/m2 02/21/2024 02:30 PM Body Weight (38562-6) 162.8 [lb_av ] Body Mass Index (53929-7) 28.84 kg/m2 02/20/2024 11:21 AM Body Weight (94485-1) 162.2 [lb_av ] Body Mass Index (03559-2) 28.73 kg/m2 02/19/2024 12:23 PM Body Weight (22282-1) 165 [lb_av] Body Mass Index (65340-9) 29.23 kg/m2 02/18/2024 03:11 PM Body Weight (86712-5) 163.6 [lb_av ] Body Mass Index (34413-7) 28.98 kg/m2 02/17/2024 11:16 AM Body Weight (78614-0) 159.6 [lb_av ] Body Mass Index (86779-9) 28.27 kg/m2 02/15/2024 09:03 AM Body Weight (35923-1) 160.8 [lb_av ] Body Mass Index (81788-0) 28.48 kg/m2 02/14/2024 02:16 PM Body Weight (48028-8) 160 [lb_av] Body Mass Index (30717-7) 28.34 kg/m2 02/13/2024 03:11 PM Body Weight (21858-2) 158.9 [lb_av ] Body Mass Index (19858-6) 28.14 kg/m2 02/12/2024 09:00 AM Body Weight (65509-7) 158.4 [lb_av ] Body Mass Index (29535-0) 28.06 kg/m2 02/11/2024 08:32 AM Body Weight (09827-8) 158.8 [lb_av ] Body Mass Index (95178-8) 28.13 kg/m2 02/10/2024 09:48 AM Body Weight (27138-2) 159.2 [lb_av ] Body Mass Index (09407-6) 28.2 kg/m2 02/09/2024 11:46 AM Body Weight (15595-2) 159.6 [lb_av ] Body Mass Index (69580-1) 28.27 kg/m2 02/08/2024 09:52 AM Body Weight (55440-1) 162.6 [lb_av ] Body Mass Index (32094-6) 28.8 kg/m2 02/07/2024 05:44 PM Body Weight (29738-6) 162.1 [lb_av ] Body Mass Index (25870-5) 28.71 kg/m2 02/06/2024 01:55 PM Body Weight (61678-2) 162.6 [lb_av ] Body Mass Index (19483-9) 28.8 kg/m2 02/05/2024 04:29 PM Body Weight (76470-4) 162.2 [lb_av ] Body Mass Index (28758-4) 28.73 kg/m2 02/04/2024 12:04 PM Body Weight (19729-5) 160 [lb_av] Body Mass Index (60910-7) 28.34 kg/m2 09/23/2018 09:58 AM Body Height (8302-2) 63 [in_us] 05/04/2024 09:36 AM Temperature (8310-5) 98 [degF] Oxygen Saturation (88496-2) 93 % Respiratory Rate (9279-1) 16 /min Heart Rate (8867-4) 83 /min Body Weight (94654-8) 163.2 [lb_av] Body Mass Index (79410-7) 28.91 kg/m2 05/04/2024 06:52 AM Heart Rate (8867-4) 83 /min Blood Pressure Systolic (8480-6) 171 mm[Hg] Blood Pressure Diastolic (8462-4) 68 mm[Hg] 05/04/2024 06:55 PM Heart Rate (8867-4) 82 /min Blood Pressure Systolic (8480-6) 136 mm[Hg] Blood Pressure Diastolic (8462-4) 71 mm[Hg] 05/06/2024 11:20 AM Body Weight (29142-2) 166.4 [lb_av ] Body Mass Index (36192-3) 29.47 kg/m2 05/06/2024 08:22 AM Heart Rate (8867-4) 79 /min Blood Pressure Systolic (8480-6) 118 mm[Hg] Blood Pressure Diastolic (8462-4) 69 mm[Hg] 05/05/2024 06:54 PM Heart Rate (8867-4) 76 /min Blood Pressure Systolic (8480-6) 129 mm[Hg] Blood Pressure Diastolic (8462-4) 68 mm[Hg] 05/05/2024 09:20 AM Body Weight (45738-3) 163.2 [lb_av ] Body Mass Index (10387-9) 28.91 kg/m2 05/05/2024 08:53 AM Heart Rate [...] 73 mm[Hg] 05/08/2024 01:17 PM Body Weight (07478-2) 166.2 [lb_av ] Body Mass Index (84924-5) 29.44 kg/m2 05/08/2024 11:27 AM Heart Rate (8867-4) 77 /min Blood Pressure Systolic (8480-6) 133 mm[Hg] Blood Pressure Diastolic (8462-4) 68 mm[Hg] 05/07/2024 07:02 PM Heart Rate (8867-4) 71 /min Blood Pressure Systolic (8480-6) 122 mm[Hg] Blood Pressure Diastolic (8462-4) 64 mm[Hg] 05/07/2024 04:18 PM Body Weight (26807-4) 166 [lb_av] Body Mass Index (54706-1) 29.4 kg/m2 05/08/2024 07:19 PM Heart Rate [...] 68 mm[Hg] 05/09/2024 08:48 AM Body Weight (48972-5) 163.2 [lb_av ] Body Mass Index (02957-0) 28.91 kg/m2 05/09/2024 08:12 AM Heart Rate (8867-4) 83 /min Blood Pressure Systolic (8480-6) 113 mm[Hg] Blood Pressure Diastolic (8462-4) 53 mm[Hg] 05/10/2024 07:29 PM Heart Rate (8867-4) 86 /min Blood Pressure Systolic (8480-6) 156 mm[Hg] Blood Pressure Diastolic (8462-4) 93 mm[Hg] 05/10/2024 10:17 AM Body Weight (26052-2) 161.8 [lb_av ] Body Mass Index (81350-4) 28.66 kg/m2 05/12/2024 06:29 AM Heart Rate (8867-4) 76 /min Blood Pressure Systolic (8480-6) 112 mm[Hg] Blood Pressure Diastolic (8462-4) 54 mm[Hg] 05/11/2024 07:29 PM Heart Rate (8867-4) 85 /min Blood Pressure Systolic (8480-6) 158 mm[Hg] Blood Pressure Diastolic (8462-4) 80 mm[Hg] 05/11/2024 12:21 PM Temperature (8310-5) 98.5 [degF] Oxygen Saturation (28530-1) 94 % Respiratory Rate (9279-1) 16 /min Heart Rate (8867-4) 89 /min Blood Pressure Systolic (8480-6) 157 mm[Hg] Blood Pressure Diastolic (8462-4) 85 mm[Hg] Body Weight (92743-8) 163.2 [lb_av] Body Mass Index (74312-6) 28.91 kg/m2 05/12/2024 08:00 PM Heart Rate (8867-4) 75 /min Blood Pressure Systolic (8480-6) 127 mm[Hg] Blood Pressure Diastolic (8462-4) 60 mm[Hg] 05/12/2024 10:30 AM Body Weight (64327-2) 163.2 [lb_av ] Body Mass Index (22514-4) 28.91 kg/m2 05/13/2024 07:07 PM Heart Rate (8867-4) 71 /min Blood Pressure Systolic (8480-6) 122 mm[Hg] Blood Pressure Diastolic (8462-4) 68 mm[Hg] 05/13/2024 11:26 AM Body Weight (02470-0) 163.2 [lb_av ] Body Mass Index (51455-6) 28.91 kg/m2 05/13/2024 08:15 AM Heart Rate (8867-4) 74 /min Blood Pressure Systolic (8480-6) 118 mm[Hg] Blood Pressure Diastolic (8462-4) 64 mm[Hg] 05/14/2024 02:15 PM Body Weight (84237-0) 165.8 [lb_av ] Body Mass Index (96589-6) 29.37 kg/m2 05/14/2024 09:10 AM Heart Rate [...] 62 mm[Hg] 05/15/2024 04:20 PM Body Weight (60213-3) 165.2 [lb_av ] Body Mass Index (00561-3) 29.26 kg/m2 05/15/2024 08:18 AM Heart Rate (8867-4) 77 /min Blood Pressure Systolic (8480-6) 145 mm[Hg] Blood Pressure Diastolic (8462-4) 64 mm[Hg] 05/16/2024 08:00 AM Body Weight (81572-5) 164.2 [lb_av ] Body Mass Index (49877-8) 29.08 kg/m2 05/16/2024 06:25 AM Heart Rate (8867-4) 73 /min Blood Pressure Systolic (8480-6) 119 mm[Hg] Blood Pressure Diastolic (8462-4) 63 mm[Hg] 05/17/2024 09:38 AM Body Weight (24884-4) 164.2 [lb_av ] Body Mass Index (43862-6) 29.08 kg/m2 05/17/2024 08:26 AM Heart Rate (8867-4) 78 /min Blood Pressure Systolic (8480-6) 140 mm[Hg] Blood Pressure Diastolic (8462-4) 71 mm[Hg] 05/16/2024 07:56 PM Heart Rate (8867-4) 73 /min Blood Pressure Systolic (8480-6) 143 mm[Hg] Blood Pressure Diastolic (8462-4) 63 mm[Hg] 05/18/2024 08:49 AM Body Weight (84869-0) 164 [lb_av] Body Mass Index (61394-4) 29.05 kg/m2 05/18/2024 06:45 AM Heart Rate (8867-4) 78 /min Blood Pressure Systolic (8480-6) 120 mm[Hg] Blood Pressure Diastolic (8462-4) 58 mm[Hg] 05/18/2024 06:42 AM Temperature (8310-5) 98.7 [degF] Oxygen Saturation (01655-5) 97 % Respiratory Rate (9279-1) 16 /min [...] 64 mm[Hg] 05/19/2024 04:56 PM Body Weight (88871-1) 163 [lb_av] Body Mass Index (94350-9) 28.87 kg/m2 05/19/2024 08:28 AM Heart Rate (8867-4) 77 /min Blood Pressure Systolic (8480-6) 142 mm[Hg] Blood Pressure Diastolic (8462-4) 69 mm[Hg] 05/20/2024 09:08 AM Body Weight (08125-2) 164.6 [lb_av ] Body Mass Index (06735-7) 29.15 kg/m2 05/20/2024 06:37 AM Heart Rate (8867-4) 78 /min Blood Pressure Systolic (8480-6) 116 mm[Hg] Blood Pressure Diastolic (8462-4) 52 mm[Hg] 05/21/2024 11:38 AM Body Weight (20673-9) 165 [lb_av] Body Mass Index (50039-3) 29.23 kg/m2 05/20/2024 07:07 PM Heart Rate [...] 66 mm[Hg] 05/22/2024 06:56 PM Body Weight (61969-6) 165.5 [lb_av ] Body Mass Index (88636-2) 29.31 kg/m2 05/22/2024 06:45 AM Heart Rate (8867-4) 71 /min Blood Pressure Systolic (8480-6) 132 mm[Hg] Blood Pressure Diastolic (8462-4) 63 mm[Hg] 05/23/2024 12:10 PM Body Weight (35271-7) 165 [lb_av] Body Mass Index (49228-3) 29.23 kg/m2 05/24/2024 07:30 AM Heart Rate (8867-4) 84 /min Blood Pressure Systolic (8480-6) 122 mm[Hg] Blood Pressure Diastolic (8462-4) 69 mm[Hg] 05/24/2024 07:29 AM Body Weight (05912-2) 164.2 [lb_av ] Body Mass Index (42810-3) 29.08 kg/m2 05/23/2024 07:20 PM Heart Rate (8867-4) 89 /min Blood Pressure Systolic (8480-6) 152 mm[Hg] Blood Pressure Diastolic (8462-4) 80 mm[Hg] 05/25/2024 09:51 AM Temperature (8310-5) 100 [degF] Oxygen Saturation (54497-5) 95 % Respiratory Rate (9279-1) 19 /min Heart Rate (8867-4) 81 /min Blood Pressure Systolic (8480-6) 129 mm[Hg] Blood Pressure Diastolic (8462-4) 61 mm[Hg] Body Weight (70792-2) 165 [lb_av] Body Mass Index (76540-2) 29.23 kg/m2 05/25/2024 06:45 AM Heart Rate [...] 83 mm[Hg] 05/26/2024 07:36 AM Body Weight (05225-8) 163.8 [lb_av ] Body Mass Index (60407-8) 29.01 kg/m2 05/26/2024 06:43 AM Heart Rate [...] 64 mm[Hg] 05/27/2024 08:52 AM Body Weight (81373-2) 165.4 [lb_av ] Body Mass Index (93493-8) 29.3 kg/m2 05/27/2024 06:17 AM Heart Rate [...] 73 mm[Hg] 05/28/2024 06:18 PM Body Weight (19797-1) 165.6 [lb_av ] Body Mass Index (38799-0) 29.33 kg/m2 05/29/2024 07:23 PM Heart Rate (8867-4) 71 /min Blood Pressure Systolic (8480-6) 125 mm[Hg] Blood Pressure Diastolic (8462-4) 77 mm[Hg] 05/29/2024 05:42 PM Body Weight (03820-3) 164.2 [lb_av ] Body Mass Index (08473-3) 29.08 kg/m2 05/29/2024 07:30 AM Heart Rate (8867-4) 81 /min Blood Pressure Systolic (8480-6) 117 mm[Hg] Blood Pressure Diastolic (8462-4) 74 mm[Hg] 05/30/2024 04:42 PM Body Weight (05459-8) 166.4 [lb_av ] Body Mass Index (91273-4) 29.47 kg/m2 05/30/2024 06:05 PM Heart Rate (8867-4) 66 /min Blood Pressure Systolic (8480-6) 130 mm[Hg] Blood Pressure Diastolic (8462-4) 80 mm[Hg] 05/30/2024 06:51 AM Heart Rate (8867-4) 78 /min Blood Pressure Systolic (8480-6) 118 mm[Hg] Blood Pressure Diastolic (8462-4) 53 mm[Hg] 05/31/2024 08:20 AM Body Weight (52615-7) 164.2 [lb_av ] Body Mass Index (65492-9) 29.08 kg/m2 05/31/2024 06:20 AM Heart Rate (8867-4) 79 /min Blood Pressure Systolic (8480-6) 128 mm[Hg] Blood Pressure Diastolic (8462-4) 56 mm[Hg] 05/31/2024 06:44 PM Heart Rate (8867-4) 77 /min Blood Pressure Systolic (8480-6) 122 mm[Hg] Blood Pressure Diastolic (8462-4) 28 mm[Hg] 06/01/2024 09:17 AM Temperature (8310-5) 98.9 [degF] Oxygen Saturation (23565-3) 97 % Respiratory Rate (9279-1) 16 /min Heart Rate (8867-4) 76 /min Blood Pressure Systolic (8480-6) 132 mm[Hg] Blood Pressure Diastolic (8462-4) 69 mm[Hg] 06/01/2024 12:18 PM Body Weight (10819-1) 164 [lb_av] Body Mass Index (74007-3) 29.05 kg/m2 06/01/2024 09:16 AM Heart Rate (8867-4) 76 /min Blood Pressure Systolic (8480-6) 132 mm[Hg] Blood Pressure Diastolic (8462-4) 69 mm[Hg] 06/02/2024 02:03 PM Body Weight (48725-1) 164.9 [lb_av ] Body Mass Index (53877-8) 29.21 kg/m2 06/02/2024 06:27 AM Heart Rate [...] 68 mm[Hg] 06/03/2024 04:09 PM Body Weight (38908-5) 165 [lb_av] Body Mass Index (92954-1) 29.23 kg/m2 06/03/2024 07:46 AM Heart Rate (8867-4) 78 /min Blood Pressure Systolic (8480-6) 131 mm[Hg] Blood Pressure Diastolic (8462-4) 67 mm[Hg] 06/04/2024 09:54 AM Body Weight (94537-6) 165.2 [lb_av ] Body Mass Index (02753-0) 29.26 kg/m2 06/04/2024 08:26 AM Heart Rate [...] 93 mm[Hg] 06/05/2024 04:17 PM Body Weight (41910-0) 167.4 [lb_av ] Body Mass Index (76085-3) 29.65 kg/m2 06/05/2024 07:25 PM Heart Rate (8867-4) 79 /min Blood Pressure Systolic (8480-6) 128 mm[Hg] Blood Pressure Diastolic (8462-4) 77 mm[Hg] 06/06/2024 06:35 PM Heart Rate (8867-4) 80 /min Blood Pressure Systolic (8480-6) 144 mm[Hg] Blood Pressure Diastolic (8462-4) 78 mm[Hg] 06/06/2024 09:53 AM Body Weight (68505-7) 168.5 [lb_av ] Body Mass Index (59516-5) 29.85 kg/m2 06/06/2024 06:53 AM Heart Rate (8867-4) 83 /min Blood Pressure Systolic (8480-6) 117 mm[Hg] Blood Pressure Diastolic (8462-4) 58 mm[Hg] 06/07/2024 09:12 AM Body Weight (22406-8) 165.4 [lb_av ] Body Mass Index (89349-3) 29.3 kg/m2 06/07/2024 06:36 AM Heart Rate (8867-4) 75 /min Blood Pressure Systolic (8480-6) 115 mm[Hg] Blood Pressure Diastolic (8462-4) 54 mm[Hg] 06/08/2024 01:27 PM Body Weight (47248-8) 166.8 [lb_av ] Body Mass Index (39553-4) 29.54 kg/m2 06/08/2024 09:41 AM Temperature (8310-5) 98.2 [degF] Oxygen Saturation (36601-1) 97 % Respiratory Rate (9279-1) 18 /min [...] 69 mm[Hg] 06/09/2024 01:00 PM Body Weight (22895-3) 166.4 [lb_av ] Body Mass Index (49435-5) 29.47 kg/m2 06/09/2024 09:25 AM Heart Rate [...] 58 mm[Hg] 06/10/2024 08:20 AM Body Weight (68513-7) 167.4 [lb_av ] Body Mass Index (56332-8) 29.65 kg/m2 06/10/2024 06:55 AM Heart Rate [...] 63 mm[Hg] 06/11/2024 11:55 AM Body Weight (75248-1) 166.6 [lb_av ] Body Mass Index (72003-2) 29.51 kg/m2 06/11/2024 07:09 AM Heart Rate [...] 63 mm[Hg] 06/12/2024 02:58 PM Body Weight (86645-4) 167.1 [lb_av ] Body Mass Index (93633-2) 29.6 kg/m2 06/13/2024 07:10 PM Heart Rate (8867-4) 73 /min Blood Pressure Systolic (8480-6) 152 mm[Hg] Blood Pressure Diastolic (8462-4) 73 mm[Hg] 06/13/2024 04:50 PM Body Weight (72997-4) 167 [lb_av] Body Mass Index (26588-0) 29.58 kg/m2 06/13/2024 08:25 AM Body Weight (34396-2) 167 [lb_av] Body Mass Index (38902-8) 29.58 kg/m2 06/13/2024 07:25 AM Heart Rate (8867-4) 75 /min Blood Pressure Systolic (8480-6) 118 mm[Hg] Blood Pressure Diastolic (8462-4) 59 mm[Hg] 06/14/2024 03:23 PM Body Weight (06359-8) 167.2 [lb_av ] Body Mass Index (37354-2) 29.61 kg/m2 06/14/2024 08:42 AM Heart Rate (8867-4) 77 /min Blood Pressure Systolic (8480-6) 136 mm[Hg] Blood Pressure Diastolic (8462-4) 67 mm[Hg] 06/15/2024 09:53 AM Body Weight (66513-5) 167.8 [lb_av ] Body Mass Index (46959-8) 29.72 kg/m2 06/15/2024 09:51 AM Temperature (8310-5) 98.4 [degF] Oxygen Saturation (56399-5) 93 % Respiratory Rate (9279-1) 17 /min Heart Rate (8867-4) 94 /min 06/15/2024 09:50 AM Heart Rate (8867-4) 94 /min Blood Pressure Systolic (8480-6) 120 mm[Hg] Blood Pressure Diastolic (8462-4) 64 mm[Hg] 06/15/2024 08:12 AM Body Weight (07024-0) 167.8 [lb_av ] Body Mass Index (19173-2) 29.72 kg/m2 06/14/2024 07:00 PM Heart Rate (8867-4) 79 /min Blood Pressure Systolic (8480-6) 162 mm[Hg] Blood Pressure Diastolic (8462-4) 75 mm[Hg] 06/16/2024 09:07 AM Body Weight (39668-3) 167.9 [lb_av ] Body Mass Index (08568-8) 29.74 kg/m2 06/16/2024 08:35 AM Heart Rate (8867-4) 85 /min Blood Pressure Systolic (8480-6) 138 mm[Hg] Blood Pressure Diastolic (8462-4) 76 mm[Hg] 06/15/2024 06:46 PM Heart Rate (8867-4) 80 /min Blood Pressure Systolic (8480-6) 163 mm[Hg] Blood Pressure Diastolic (8462-4) 74 mm[Hg] 06/17/2024 09:36 AM Body Weight (38172-4) 168 [lb_av] Body Mass Index (36931-1) 29.76 kg/m2 06/17/2024 08:16 AM Heart Rate [...] Pressure Diastolic (8462-4) 61 mm[Hg] Body Weight (56001-1) 168.8 [lb_av] Body Mass Index (50923-4) 29.9 kg/m2 06/18/2024 07:15 AM Heart Rate [...] 63 mm[Hg] 06/19/2024 09:43 AM Body Weight (39093-5) 167.8 [lb_av ] Body Mass Index (28145-8) 29.72 kg/m2 06/20/2024 05:38 PM Body Weight (82563-9) 167.4 [lb_av ] Body Mass Index (00260-2) 29.65 kg/m2 06/20/2024 06:54 AM Heart Rate (8867-4) 79 /min Blood Pressure Systolic (8480-6) 121 mm[Hg] Blood Pressure Diastolic (8462-4) 55 mm[Hg] 06/21/2024 09:19 AM Body Weight (59551-0) 167.8 [lb_av ] Body Mass Index (98718-9) 29.72 kg/m2 06/21/2024 06:43 PM Heart Rate [...] 58 mm[Hg] 06/23/2024 04:15 PM Body Weight (04775-5) 170 [lb_av] Body Mass Index (85766-0) 30.11 kg/m2 06/23/2024 11:58 AM Heart Rate (8867-4) 87 /min Blood Pressure Systolic (8480-6) 127 mm[Hg] Blood Pressure Diastolic (8462-4) 61 mm[Hg] 06/22/2024 06:49 PM Temperature (8310-5) 97.1 [degF] Oxygen Saturation (57970-0) 96 % Respiratory Rate (9279-1) 16 /min Heart Rate (8867-4) 81 /min Blood Pressure Systolic (8480-6) 109 mm[Hg] Blood Pressure Diastolic (8462-4) 58 mm[Hg] 06/22/2024 06:48 PM Body Weight (66680-0) 170.4 [lb_av ] Body Mass Index (87599-2) 30.18 kg/m2 06/22/2024 06:43 PM Heart Rate (8867-4) 82 /min Blood Pressure Systolic (8480-6) 114 mm[Hg] Blood Pressure Diastolic (8462-4) 69 mm[Hg] 06/24/2024 04:03 PM Body Weight (31398-4) 170.1 [lb_av ] Body Mass Index (12435-1) 30.13 kg/m2 06/24/2024 06:43 AM Heart Rate (8867-4) 76 /min Blood Pressure Systolic (8480-6) 113 mm[Hg] Blood Pressure Diastolic (8462-4) 64 mm[Hg] 06/23/2024 07:04 PM Heart Rate (8867-4) 80 /min Blood Pressure Systolic (8480-6) 130 mm[Hg] Blood Pressure Diastolic (8462-4) 66 mm[Hg] 06/25/2024 01:27 PM Body Weight (16953-3) 171.4 [lb_av ] Body Mass Index (94696-5) 30.36 kg/m2 06/25/2024 07:47 AM Heart Rate [...] 69 mm[Hg] 06/26/2024 03:44 PM Body Weight (93613-8) 171.9 [lb_av ] Body Mass Index (59615-0) 30.45 kg/m2 06/27/2024 06:22 PM Heart Rate (8867-4) 80 /min Blood Pressure Systolic (8480-6) 130 mm[Hg] Blood Pressure Diastolic (8462-4) 70 mm[Hg] 06/27/2024 11:18 AM Body Weight (57269-6) 167.2 [lb_av ] Body Mass Index (84686-2) 29.61 kg/m2 06/27/2024 07:11 AM Heart Rate (8867-4) 83 /min Blood Pressure Systolic (8480-6) 124 mm[Hg] Blood Pressure Diastolic (8462-4) 60 mm[Hg] 06/28/2024 08:38 AM Body Weight (37803-4) 167 [lb_av] Body Mass Index (82062-7) 29.58 kg/m2 06/28/2024 07:56 AM Heart Rate (8867-4) 73 /min Blood Pressure Systolic (8480-6) 112 mm[Hg] Blood Pressure Diastolic (8462-4) 51 mm[Hg] 06/29/2024 08:53 AM Temperature (8310-5) 98.3 [degF] Oxygen Saturation (34340-8) 93 % Respiratory Rate (9279-1) 16 /min Heart Rate (8867-4) 80 /min 06/29/2024 08:12 AM Heart Rate (8867-4) 80 /min Blood Pressure Systolic (8480-6) 135 mm[Hg] Blood Pressure Diastolic (8462-4) 85 mm[Hg] 06/29/2024 10:50 AM Body Weight (81017-4) 168.2 [lb_av ] Body Mass Index (42994-2) 29.79 kg/m2 06/28/2024 06:43 PM Heart Rate (8867-4) 71 /min Blood Pressure Systolic (8480-6) 163 mm[Hg] Blood Pressure Diastolic (8462-4) 70 mm[Hg] 06/29/2024 06:26 PM Heart Rate (8867-4) 76 /min Blood Pressure Systolic (8480-6) 150 mm[Hg] Blood Pressure Diastolic (8462-4) 74 mm[Hg] 06/30/2024 03:13 PM Body Weight (01127-4) 168 [lb_av] Body Mass Index (82547-9) 29.76 kg/m2 06/30/2024 06:46 AM Heart Rate (8867-4) 79 /min Blood Pressure Systolic (8480-6) 132 mm[Hg] Blood Pressure Diastolic (8462-4) 65 mm[Hg] 07/01/2024 12:35 PM Body Weight (86989-4) 172.4 [lb_av ] Body Mass Index (56998-0) 30.54 kg/m2 07/01/2024 08:08 AM Heart Rate (8867-4) 77 /min Blood Pressure Systolic (8480-6) 119 mm[Hg] Blood Pressure Diastolic (8462-4) 74 mm[Hg] 06/30/2024 08:57 PM Heart Rate (8867-4) 81 /min Blood Pressure Systolic (8480-6) 127 mm[Hg] Blood Pressure Diastolic (8462-4) 69 mm[Hg] 07/02/2024 03:08 PM Body Weight (86584-2) 170.1 [lb_av ] Body Mass Index (50767-8) 30.13 kg/m2 07/02/2024 07:50 AM Heart Rate [...] 93 mm[Hg] 07/03/2024 08:49 AM Body Weight (53553-7) 170.6 [lb_av ] Body Mass Index (12692-9) 30.22 kg/m2 07/03/2024 07:34 AM Heart Rate (8867-4) 83 /min Blood Pressure Systolic (8480-6) 104 mm[Hg] Blood Pressure Diastolic (8462-4) 65 mm[Hg] 07/04/2024 09:56 AM Body Weight (54171-6) 171 [lb_av] Body Mass Index (45890-3) 30.29 kg/m2 07/04/2024 08:45 AM Heart Rate [...] 69 mm[Hg] 07/05/2024 09:48 AM Body Weight (60563-6) 172.2 [lb_av ] Body Mass Index (18414-6) 30.5 kg/m2 07/04/2024 06:24 PM Heart Rate (8867-4) 80 /min Blood Pressure Systolic (8480-6) 138 mm[Hg] Blood Pressure Diastolic (8462-4) 74 mm[Hg] 07/06/2024 07:00 PM Heart Rate (8867-4) 80 /min Blood Pressure Systolic (8480-6) 132 mm[Hg] Blood Pressure Diastolic (8462-4) 63 mm[Hg] 07/06/2024 12:14 PM Temperature (8310-5) 97.7 [degF] Oxygen Saturation (13109-7) 98 % Respiratory Rate (9279-1) 16 /min Heart Rate (8867-4) 84 /min Blood Pressure Systolic (8480-6) 134 mm[Hg] Blood Pressure Diastolic (8462-4) 66 mm[Hg] Body Weight (39604-2) 169.2 [lb_av] Body Mass Index (46828-7) 29.97 kg/m2 07/06/2024 09:28 AM Heart Rate (8867-4) 84 /min Blood Pressure Systolic (8480-6) 134 mm[Hg] Blood Pressure Diastolic (8462-4) 64 mm[Hg] 07/07/2024 07:34 PM Heart Rate (8867-4) 74 /min Blood Pressure Systolic (8480-6) 143 mm[Hg] Blood Pressure Diastolic (8462-4) 74 mm[Hg] 07/07/2024 01:32 PM Body Weight (41932-5) 170 [lb_av] Body Mass Index (17692-2) 30.11 kg/m2 07/07/2024 07:30 AM Heart Rate [...] 70 mm[Hg] 07/08/2024 05:22 PM Body Weight (19514-8) 171 [lb_av] Body Mass Index (33923-0) 30.29 kg/m2 07/09/2024 07:13 PM Heart Rate (8867-4) 77 /min Blood Pressure Systolic (8480-6) 125 mm[Hg] Blood Pressure Diastolic (8462-4) 51 mm[Hg] 07/09/2024 03:08 PM Body Weight (72308-6) 171.1 [lb_av ] Body Mass Index (32770-3) 30.31 kg/m2 07/09/2024 09:02 AM Heart Rate [...] 66 mm[Hg] 07/10/2024 04:16 PM Body Weight (91006-8) 171 [lb_av] Body Mass Index (04448-1) 30.29 kg/m2 07/11/2024 08:25 PM Heart Rate (8867-4) 61 /min Blood Pressure Systolic (8480-6) 115 mm[Hg] Blood Pressure Diastolic (8462-4) 67 mm[Hg] 07/11/2024 10:17 AM Body Weight (60849-6) 170.8 [lb_av ] Body Mass Index (98208-8) 30.25 kg/m2 07/11/2024 08:08 AM Heart Rate (8867-4) 74 /min Blood Pressure Systolic (8480-6) 139 mm[Hg] Blood Pressure Diastolic (8462-4) 72 mm[Hg] 07/12/2024 07:15 AM Heart Rate (8867-4) 78 /min Blood Pressure Systolic (8480-6) 152 mm[Hg] Blood Pressure Diastolic (8462-4) 77 mm[Hg] 07/13/2024 12:52 PM Body Weight (84507-8) 170 [lb_av] Body Mass Index (78485-7) 30.11 kg/m2 07/13/2024 10:12 AM Temperature (8310-5) 98.6 [degF] Oxygen Saturation (83882-5) 96 % Respiratory Rate (9279-1) 20 /min [...] 66 mm[Hg] 07/12/2024 06:19 PM Body Weight (55062-6) 170.7 [lb_av ] Body Mass Index (66113-5) 30.23 kg/m2 07/14/2024 11:01 AM Body Weight (45978-2) 170.1 [lb_av ] Body Mass Index (20017-5) 30.13 kg/m2 07/14/2024 07:20 AM Heart Rate (8867-4) 75 /min Blood Pressure Systolic (8480-6) 120 mm[Hg] Blood Pressure Diastolic (8462-4) 63 mm[Hg] 07/13/2024 07:45 PM Heart Rate (8867-4) 73 /min Blood Pressure Systolic (8480-6) 155 mm[Hg] Blood Pressure Diastolic (8462-4) 76 mm[Hg] 07/15/2024 01:21 PM Body Weight (76693-2) 170.2 [lb_av ] Body Mass Index (42844-8) 30.15 kg/m2 07/15/2024 07:16 AM Heart Rate [...] 64 mm[Hg] 07/16/2024 03:41 PM Body Weight (29043-2) 170.3 [lb_av ] Body Mass Index (16016-3) 30.16 kg/m2 07/16/2024 08:58 AM Heart Rate (8867-4) 81 /min Blood Pressure Systolic (8480-6) 118 mm[Hg] Blood Pressure Diastolic (8462-4) 87 mm[Hg] 07/17/2024 10:44 AM Body Weight (07062-5) 170.2 [lb_av ] Body Mass Index (89406-9) 30.15 kg/m2 07/17/2024 07:05 AM Heart Rate [...] 80 mm[Hg] 07/18/2024 10:25 AM Body Weight (27927-6) 167.6 [lb_av ] Body Mass Index (96442-6) 29.69 kg/m2 07/18/2024 09:04 AM Heart Rate (8867-4) 80 /min Blood Pressure Systolic (8480-6) 137 mm[Hg] Blood Pressure Diastolic (8462-4) 68 mm[Hg] 07/19/2024 09:47 AM Heart Rate (8867-4) 78 /min Blood Pressure Systolic (8480-6) 110 mm[Hg] Blood Pressure Diastolic (8462-4) 57 mm[Hg] Body Weight (43180-3) 167.2 [lb_av] Body Mass Index (78583-1) 29.61 kg/m2 07/19/2024 07:31 PM Heart Rate (8867-4) 85 /min Blood Pressure Systolic (8480-6) 123 mm[Hg] Blood Pressure Diastolic (8462-4) 68 mm[Hg] 07/20/2024 07:31 PM Heart Rate (8867-4) 75 /min Blood Pressure Systolic (8480-6) 148 mm[Hg] Blood Pressure Diastolic (8462-4) 71 mm[Hg] 07/20/2024 11:07 AM Body Weight (63515-8) 167.4 [lb_av ] Body Mass Index (21304-5) 29.65 kg/m2 07/20/2024 09:01 AM Temperature (8310-5) 97.4 [degF] Oxygen Saturation (43179-3) 92 % Respiratory Rate (9279-1) 22 /min [...] 63 mm[Hg] 07/22/2024 04:18 PM Body Weight (25889-4) 170.6 [lb_av ] Body Mass Index (17877-8) 30.22 kg/m2 07/22/2024 08:38 AM Heart Rate (8867-4) 93 /min Blood Pressure Systolic (8480-6) 163 mm[Hg] Blood Pressure Diastolic (8462-4) 59 mm[Hg] 07/23/2024 01:56 PM Body Weight (36288-8) 170.4 [lb_av ] Body Mass Index (87411-1) 30.18 kg/m2 07/23/2024 08:02 AM Heart Rate [...] 73 mm[Hg] 07/24/2024 04:52 PM Body Weight (49359-0) 171 [lb_av] Body Mass Index (84032-3) 30.29 kg/m2 07/25/2024 06:40 PM Heart Rate (8867-4) 80 /min Blood Pressure Systolic (8480-6) 126 mm[Hg] Blood Pressure Diastolic (8462-4) 76 mm[Hg] 07/25/2024 12:34 PM Body Weight (31656-8) 172.4 [lb_av ] Body Mass Index (49819-5) 30.54 kg/m2 07/25/2024 08:29 AM Heart Rate (8867-4) 77 /min Blood Pressure Systolic (8480-6) 124 mm[Hg] Blood Pressure Diastolic (8462-4) 63 mm[Hg] 07/26/2024 07:01 AM Heart Rate (8867-4) 76 /min Blood Pressure Systolic (8480-6) 131 mm[Hg] Blood Pressure Diastolic (8462-4) 76 mm[Hg] 07/27/2024 10:04 AM Body Weight (95736-0) 171.4 [lb_av ] Body Mass Index (75212-8) 30.36 kg/m2 07/27/2024 09:35 AM Temperature (8310-5) 98.4 [degF] Oxygen Saturation (55605-7) 99 % Respiratory Rate (9279-1) 16 /min Heart Rate (8867-4) 80 /min Blood Pressure Systolic (8480-6) 132 mm[Hg] Blood Pressure Diastolic (8462-4) 68 mm[Hg] 07/26/2024 07:20 PM Heart Rate (8867-4) 72 /min Blood Pressure Systolic (8480-6) 142 mm[Hg] Blood Pressure Diastolic (8462-4) 69 mm[Hg] 07/26/2024 05:50 PM Body Weight (09988-5) 168.6 [lb_av ] Body Mass Index (25556-3) 29.86 kg/m2 07/28/2024 09:55 AM Body Weight (27150-5) 169.4 [lb_av ] Body Mass Index (32528-1) 30 kg/m2 07/28/2024 06:38 AM Heart Rate (8867-4) 78 /min Blood Pressure Systolic (8480-6) 117 mm[Hg] Blood Pressure Diastolic (8462-4) 52 mm[Hg] 07/27/2024 06:34 PM Heart Rate (8867-4) 74 /min Blood Pressure Systolic (8480-6) 153 mm[Hg] Blood Pressure Diastolic (8462-4) 74 mm[Hg] 07/29/2024 10:00 AM Body Weight (04415-5) 170 [lb_av] Body Mass Index (29720-0) 30.11 kg/m2 07/29/2024 09:37 AM Heart Rate [...] 47 mm[Hg] 07/30/2024 03:46 PM Body Weight (28657-8) 171.2 [lb_av ] Body Mass Index (58314-7) 30.32 kg/m2 07/30/2024 07:58 AM Heart Rate (8867-4) 78 /min Blood Pressure Systolic (8480-6) 114 mm[Hg] Blood Pressure Diastolic (8462-4) 63 mm[Hg] 07/31/2024 07:09 AM Heart Rate (8867-4) 78 /min Blood Pressure Systolic (8480-6) 136 mm[Hg] Blood Pressure Diastolic (8462-4) 53 mm[Hg] 07/31/2024 07:07 AM Body Weight (79219-1) 169.8 [lb_av ] Body Mass Index (97933-0) 30.08 kg/m2 07/31/2024 06:55 PM Heart Rate (8867-4) 73 /min Blood Pressure Systolic (8480-6) 124 mm[Hg] Blood Pressure Diastolic (8462-4) 65 mm[Hg] 08/01/2024 07:14 PM Heart Rate (8867-4) 80 /min Blood Pressure Systolic (8480-6) 138 mm[Hg] Blood Pressure Diastolic (8462-4) 80 mm[Hg] 08/01/2024 11:41 AM Body Weight (40090-5) 169.8 [lb_av ] Body Mass Index (60492-6) 30.08 kg/m2 08/01/2024 09:03 AM Heart Rate (8867-4) 82 /min Blood Pressure Systolic (8480-6) 113 mm[Hg] Blood Pressure Diastolic (8462-4) 56 mm[Hg] 08/02/2024 11:33 AM Body Weight (10876-5) 169.6 [lb_av ] Body Mass Index (62680-3) 30.04 kg/m2 08/02/2024 07:45 AM Heart Rate [...] AM Temperature (8310-5) 97.9 [degF] Oxygen Saturation (44913-9) 98 % Respiratory Rate (9279-1) 16 /min Heart Rate (8867-4) 81 /min 08/03/2024 04:44 PM Body Weight (43168-2) 171.2 [lb_av ] Body Mass Index (51201-9) 30.32 kg/m2 08/03/2024 07:45 PM Heart Rate [...] 58 mm[Hg] 08/04/2024 06:29 PM Body Weight (40337-2) 170.7 [lb_av ] Body Mass Index (96056-4) 30.23 kg/m2 08/05/2024 07:52 AM Heart Rate (8867-4) 75 /min Blood Pressure Systolic (8480-6) 103 mm[Hg] Blood Pressure Diastolic (8462-4) 46 mm[Hg] 08/06/2024 12:54 AM Heart Rate (8867-4) 79 /min Blood Pressure Systolic (8480-6) 137 mm[Hg] Blood Pressure Diastolic (8462-4) 71 mm[Hg] 08/05/2024 07:05 PM Body Weight (17873-3) 170.6 [lb_av ] Body Mass Index (96944-2) 30.22 kg/m2 08/06/2024 08:27 AM Heart Rate (8867-4) 81 /min Blood Pressure Systolic (8480-6) 108 mm[Hg] Blood Pressure Diastolic (8462-4) 59 mm[Hg] 08/06/2024 02:46 PM Body Weight (61367-7) 170.1 [lb_av ] Body Mass Index (59021-3) 30.13 kg/m2 08/06/2024 07:20 PM Heart Rate (8867-4) 77 /min Blood Pressure Systolic (8480-6) 125 mm[Hg] Blood Pressure Diastolic (8462-4) 74 mm[Hg] 08/07/2024 08:51 AM Heart Rate (8867-4) 86 /min Blood Pressure Systolic (8480-6) 141 mm[Hg] Blood Pressure Diastolic (8462-4) 78 mm[Hg] 08/07/2024 03:38 PM Body Weight (63676-8) 169.7 [lb_av ] Body Mass Index (64542-5) 30.06 kg/m2 08/07/2024 06:44 PM Heart Rate [...] 78 mm[Hg] 08/09/2024 07:25 AM Body Weight (44879-8) 169.4 [lb_av ] Body Mass Index (28068-9) 30 kg/m2 08/09/2024 06:06 AM Heart Rate (8867-4) 80 /min Blood Pressure Systolic (8480-6) 120 mm[Hg] Blood Pressure Diastolic (8462-4) 60 mm[Hg] 08/10/2024 10:10 AM Body Weight (13931-7) 172.2 [lb_av ] Body Mass Index (82603-2) 30.5 kg/m2 08/10/2024 09:04 AM Temperature (8310-5) 99.1 [degF] Oxygen Saturation (12979-1) 96 % Respiratory Rate (9279-1) 16 /min [...] 79 mm[Hg] 08/11/2024 07:45 AM Body Weight (41380-8) 171.6 [lb_av ] Body Mass Index (71606-5) 30.39 kg/m2 08/11/2024 07:33 AM Heart Rate [...] 69 mm[Hg] 08/14/2024 12:45 PM Body Weight (65733-3) 167.8 [lb_av ] Body Mass Index (31507-0) 29.72 kg/m2 08/14/2024 07:13 PM Heart Rate (8867-4) 77 /min Blood Pressure Systolic (8480-6) 133 mm[Hg] Blood Pressure Diastolic (8462-4) 52 mm[Hg] 08/15/2024 09:00 AM Heart Rate (8867-4) 82 /min Blood Pressure Systolic (8480-6) 134 mm[Hg] Blood Pressure Diastolic (8462-4) 59 mm[Hg] 08/15/2024 11:21 AM Body Weight (83146-0) 169.6 [lb_av ] Body Mass Index (59251-1) 30.04 kg/m2 08/15/2024 06:43 PM Heart Rate [...] PM Temperature (8310-5) 98.8 [degF] Oxygen Saturation (33185-7) 98 % Respiratory Rate (9279-1) 17 /min Heart Rate (8867-4) 81 /min Blood Pressure Systolic (8480-6) 134 mm[Hg] Blood Pressure Diastolic (8462-4) 69 mm[Hg] 08/17/2024 12:13 PM Body Weight (31066-2) 169.9 [lb_av ] Body Mass Index (50077-2) 30.09 kg/m2 08/17/2024 08:04 PM Heart Rate [...] 76 mm[Hg] 08/18/2024 06:41 PM Body Weight (91403-5) 168.8 [lb_av ] Body Mass Index (86275-0) 29.9 kg/m2 08/19/2024 06:42 AM Heart Rate (8867-4) 81 /min Blood Pressure Systolic (8480-6) 122 mm[Hg] Blood Pressure Diastolic (8462-4) 55 mm[Hg] 08/19/2024 03:35 PM Body Weight (36202-7) 172.8 [lb_av ] Body Mass Index (13265-1) 30.61 kg/m2 08/19/2024 09:10 PM Heart Rate (8867-4) 88 /min Blood Pressure Systolic (8480-6) 136 mm[Hg] Blood Pressure Diastolic (8462-4) 59 mm[Hg] 08/20/2024 08:37 AM Heart Rate (8867-4) 82 /min Blood Pressure Systolic (8480-6) 127 mm[Hg] Blood Pressure Diastolic (8462-4) 61 mm[Hg] 08/20/2024 11:36 AM Body Weight (38082-6) 170 [lb_av] Body Mass Index (55860-2) 30.11 kg/m2 08/20/2024 09:28 PM Heart Rate (8867-4) 81 /min Blood Pressure Systolic (8480-6) 125 mm[Hg] Blood Pressure Diastolic (8462-4) 58 mm[Hg] 08/21/2024 08:03 AM Body Weight (88585-0) 170.2 [lb_av ] Body Mass Index (47704-9) 30.15 kg/m2 08/21/2024 08:02 AM Heart Rate [...] 60 mm[Hg] 08/22/2024 11:30 AM Body Weight (39810-9) 170.4 [lb_av ] Body Mass Index (83038-0) 30.18 kg/m2 08/22/2024 06:39 PM Heart Rate (8867-4) 75 /min Blood Pressure Systolic (8480-6) 155 mm[Hg] Blood Pressure Diastolic (8462-4) 73 mm[Hg] 08/23/2024 08:10 AM Body Weight (37722-6) 169 [lb_av] Body Mass Index (93712-5) 29.93 kg/m2 08/23/2024 08:09 AM Heart Rate (8867-4) 88 /min Blood Pressure Systolic (8480-6) 127 mm[Hg] Blood Pressure Diastolic (8462-4) 70 mm[Hg] 08/23/2024 07:35 PM Heart Rate (8867-4) 77 /min Blood Pressure Systolic (8480-6) 152 mm[Hg] Blood Pressure Diastolic (8462-4) 64 mm[Hg] 08/24/2024 08:34 AM Temperature (8310-5) 96.9 [degF] Oxygen Saturation (76320-0) 95 % Respiratory Rate (9279-1) 17 /min Heart Rate (8867-4) 84 /min Blood Pressure Systolic (8480-6) 141 mm[Hg] Blood Pressure Diastolic (8462-4) 80 mm[Hg] 08/24/2024 08:27 AM Heart Rate (8867-4) 74 /min Blood Pressure Systolic (8480-6) 106 mm[Hg] Blood Pressure Diastolic (8462-4) 50 mm[Hg] 08/24/2024 12:58 PM Body Weight (02787-2) 174 [lb_av] Body Mass Index (70773-4) 30.82 kg/m2 08/24/2024 08:02 PM Heart Rate (8867-4) 74 /min Blood Pressure Systolic (8480-6) 132 mm[Hg] Blood Pressure Diastolic (8462-4) 65 mm[Hg] 08/25/2024 06:33 AM Heart Rate (8867-4) 72 /min Blood Pressure Systolic (8480-6) 125 mm[Hg] Blood Pressure Diastolic (8462-4) 60 mm[Hg] 08/25/2024 06:32 AM Body Weight (93484-5) 172.4 [lb_av ] Body Mass Index (44078-1) 30.54 kg/m2 08/25/2024 11:21 PM Heart Rate (8867-4) 77 /min Blood Pressure Systolic (8480-6) 128 mm[Hg] Blood Pressure Diastolic (8462-4) 68 mm[Hg] 08/26/2024 09:02 AM Heart Rate (8867-4) 78 /min Blood Pressure Systolic (8480-6) 122 mm[Hg] Blood Pressure Diastolic (8462-4) 60 mm[Hg] 08/26/2024 10:43 AM Body Weight (03246-4) 169.6 [lb_av ] Body Mass Index (28320-7) 30.04 kg/m2 08/26/2024 07:51 PM Heart Rate (8867-4) 70 /min Blood Pressure Systolic (8480-6) 132 mm[Hg] Blood Pressure Diastolic (8462-4) 66 mm[Hg] 08/27/2024 08:20 AM Heart Rate (8867-4) 82 /min Blood Pressure Systolic (8480-6) 122 mm[Hg] Blood Pressure Diastolic (8462-4) 57 mm[Hg] 08/27/2024 04:17 PM Body Weight (93917-4) 170.3 [lb_av ] Body Mass Index (30199-3) 30.16 kg/m2 08/27/2024 07:29 PM Heart Rate (8867-4) 76 /min Blood Pressure Systolic (8480-6) 133 mm[Hg] Blood Pressure Diastolic (8462-4) 67 mm[Hg] 08/28/2024 08:35 AM Heart Rate (8867-4) 78 /min Blood Pressure Systolic (8480-6) 127 mm[Hg] Blood Pressure Diastolic (8462-4) 61 mm[Hg] 08/28/2024 05:14 PM Body Weight (04087-6) 170.9 [lb_av ] Body Mass Index (82118-0) 30.27 kg/m2 08/28/2024 08:14 PM Heart Rate (8867-4) 71 /min Blood Pressure Systolic (8480-6) 90 mm[Hg] Blood Pressure Diastolic (8462-4) 42 mm[Hg] 08/29/2024 08:56 AM Heart Rate (8867-4) 78 /min Blood Pressure Systolic (8480-6) 124 mm[Hg] Blood Pressure Diastolic (8462-4) 56 mm[Hg] 08/29/2024 02:48 PM Body Weight (30645-9) 172.4 [lb_av ] Body Mass Index (82231-5) 30.54 kg/m2 08/29/2024 07:09 PM Heart Rate (8867-4) 80 /min Blood Pressure Systolic (8480-6) 138 mm[Hg] Blood Pressure Diastolic (8462-4) 78 mm[Hg] 08/30/2024 08:15 AM Heart Rate (8867-4) 76 /min Blood Pressure Systolic (8480-6) 128 mm[Hg] Blood Pressure Diastolic (8462-4) 72 mm[Hg] Body Weight (11900-3) 172 [lb_av] Body Mass Index (14681-8) 30.47 kg/m2 08/30/2024 07:46 PM Heart Rate (8867-4) 81 /min Blood Pressure Systolic (8480-6) 154 mm[Hg] Blood Pressure Diastolic (8462-4) 70 mm[Hg] 08/31/2024 08:48 AM Heart Rate (8867-4) 86 /min Blood Pressure Systolic (8480-6) 138 mm[Hg] Blood Pressure Diastolic (8462-4) 69 mm[Hg] 08/31/2024 05:10 PM Temperature (8310-5) 97.4 [degF] Oxygen Saturation (90178-4) 93 % Respiratory Rate (9279-1) 16 /min Heart Rate (8867-4) 86 /min 08/31/2024 05:23 PM Body Weight (35666-7) 172.8 [lb_av ] Body Mass Index (28205-5) 30.61 kg/m2 08/31/2024 07:25 PM Heart Rate (8867-4) 80 /min Blood Pressure Systolic (8480-6) 139 mm[Hg] Blood Pressure Diastolic (8462-4) 69 mm[Hg] 09/01/2024 07:56 AM Heart Rate (8867-4) 79 /min Blood Pressure Systolic (8480-6) 116 mm[Hg] Blood Pressure Diastolic (8462-4) 53 mm[Hg] 09/01/2024 01:17 PM Body Weight (36089-2) 171.8 [lb_av ] Body Mass Index (35987-5) 30.43 kg/m2 09/01/2024 08:21 PM Heart Rate (8867-4) 78 /min Blood Pressure Systolic (8480-6) 132 mm[Hg] Blood Pressure Diastolic (8462-4) 77 mm[Hg] 09/02/2024 09:31 AM Heart Rate (8867-4) 78 /min Blood Pressure Systolic (8480-6) 120 mm[Hg] Blood Pressure Diastolic (8462-4) 51 mm[Hg] 09/02/2024 02:38 PM Body Weight (00234-9) 174 [lb_av] Body Mass Index (03261-3) 30.82 kg/m2 09/02/2024 07:12 PM Heart Rate (8867-4) 72 /min Blood Pressure Systolic (8480-6) 155 mm[Hg] Blood Pressure Diastolic (8462-4) 80 mm[Hg] 09/03/2024 05:36 PM Body Weight (44366-5) 171.2 [lb_av ] Body Mass Index (85670-9) 30.32 kg/m2 09/03/2024 01:37 PM Heart Rate (8867-4) 84 /min Blood Pressure Systolic (8480-6) 142 mm[Hg] Blood Pressure Diastolic (8462-4) 74 mm[Hg] 09/03/2024 07:09 PM Heart Rate (8867-4) 73 /min Blood Pressure Systolic (8480-6) 144 mm[Hg] Blood Pressure Diastolic (8462-4) 79 mm[Hg] 09/04/2024 08:36 AM Body Weight (50832-2) 168.4 [lb_av ] Body Mass Index (78879-6) 29.83 kg/m2 09/04/2024 08:35 AM Heart Rate (8867-4) 78 /min Blood Pressure Systolic (8480-6) 104 mm[Hg] Blood Pressure Diastolic (8462-4) 60 mm[Hg] 09/04/2024 07:19 PM Heart Rate (8867-4) 71 /min Blood Pressure Systolic (8480-6) 122 mm[Hg] Blood Pressure Diastolic (8462-4) 68 mm[Hg] 09/05/2024 04:43 PM Body Weight (30841-9) 170.1 [lb_av ] Body Mass Index (94411-4) 30.13 kg/m2 09/05/2024 06:33 PM Heart Rate (8867-4) 70 /min Blood Pressure Systolic (8480-6) 138 mm[Hg] Blood Pressure Diastolic (8462-4) 74 mm[Hg] 09/06/2024 07:01 AM Heart Rate (8867-4) 88 /min Blood Pressure Systolic (8480-6) 118 mm[Hg] Blood Pressure Diastolic (8462-4) 56 mm[Hg] 09/06/2024 03:46 PM Body Weight (42082-2) 169.4 [lb_av ] Body Mass Index (66148-4) 30 kg/m2 09/07/2024 09:38 AM Heart Rate (8867-4) 81 /min Blood Pressure Systolic (8480-6) 130 mm[Hg] Blood Pressure Diastolic (8462-4) 58 mm[Hg] 09/06/2024 07:02 PM Heart Rate (8867-4) 76 /min Blood Pressure Systolic (8480-6) 149 mm[Hg] Blood Pressure Diastolic (8462-4) 70 mm[Hg] 09/07/2024 09:39 AM Temperature (8310-5) 98.6 [degF] Oxygen Saturation (63768-3) 94 % Respiratory Rate (9279-1) 16 /min Heart Rate (8867-4) 81 /min Body Weight (55407-2) 169.4 [lb_av] Body Mass Index (40112-8) 30 kg/m2 09/07/2024 08:37 PM Heart Rate (8867-4) 80 /min Blood Pressure Systolic (8480-6) 161 mm[Hg] Blood Pressure Diastolic (8462-4) 70 mm[Hg] 09/08/2024 08:28 AM Heart Rate (8867-4) 79 /min Blood Pressure Systolic (8480-6) 112 mm[Hg] Blood Pressure Diastolic (8462-4) 59 mm[Hg] 09/08/2024 04:56 PM Body Weight (18279-6) 171.6 [lb_av ] Body Mass Index (97553-6) 30.39 kg/m2 09/08/2024 07:22 PM Heart Rate (8867-4) 71 /min Blood Pressure Systolic (8480-6) 122 mm[Hg] Blood Pressure Diastolic (8462-4) 65 mm[Hg] 09/09/2024 09:00 AM Body Weight (44232-9) 169.4 [lb_av ] Body Mass Index (81946-2) 30 kg/m2 09/09/2024 08:20 AM Heart Rate [...] 68 mm[Hg] 09/10/2024 12:13 PM Body Weight (03737-4) 171.9 [lb_av ] Body Mass Index (09873-4) 30.45 kg/m2 09/10/2024 07:11 PM Heart Rate (8867-4) 77 /min Blood Pressure Systolic (8480-6) 135 mm[Hg] Blood Pressure Diastolic (8462-4) 66 mm[Hg] 09/11/2024 08:44 AM Heart Rate (8867-4) 73 /min Blood Pressure Systolic (8480-6) 156 mm[Hg] Blood Pressure Diastolic (8462-4) 67 mm[Hg] 09/11/2024 09:47 AM Body Weight (35101-7) 169.6 [lb_av ] Body Mass Index (06956-6) 30.04 kg/m2 09/11/2024 11:22 PM Heart Rate (8867-4) 77 /min Blood Pressure Systolic (8480-6) 149 mm[Hg] Blood Pressure Diastolic (8462-4) 73 mm[Hg] 09/12/2024 07:56 AM Heart Rate (8867-4) 83 /min Blood Pressure Systolic (8480-6) 130 mm[Hg] Blood Pressure Diastolic (8462-4) 56 mm[Hg] 09/12/2024 03:04 PM Body Weight (50622-0) 172.8 [lb_av ] Body Mass Index (40350-3) 30.61 kg/m2 09/12/2024 06:31 PM Heart Rate [...] 79 mm[Hg] 09/13/2024 06:27 PM Body Weight (14786-7) 171.6 [lb_av ] Body Mass Index (70520-3) 30.39 kg/m2 09/14/2024 07:58 AM Heart Rate (8867-4) 87 /min Blood Pressure Systolic (8480-6) 161 mm[Hg] Blood Pressure Diastolic (8462-4) 74 mm[Hg] 09/14/2024 11:47 AM Body Weight (54870-9) 173.6 [lb_av ] Body Mass Index (27736-4) 30.75 kg/m2 09/14/2024 11:03 AM Temperature (8310-5) 97.7 [degF] Oxygen Saturation (00569-3) 95 % Respiratory Rate (9279-1) 16 /min [...] 54 mm[Hg] 09/15/2024 01:16 PM Body Weight (44438-7) 174.8 [lb_av ] Body Mass Index (98404-8) 30.96 kg/m2 09/15/2024 08:03 PM Heart Rate (8867-4) 78 /min Blood Pressure Systolic (8480-6) 152 mm[Hg] Blood Pressure Diastolic (8462-4) 81 mm[Hg] 09/16/2024 11:30 AM Heart Rate (8867-4) 83 /min Blood Pressure Systolic (8480-6) 186 mm[Hg] Blood Pressure Diastolic (8462-4) 62 mm[Hg] 09/16/2024 11:31 AM Body Weight (89161-2) 173 [lb_av] Body Mass Index (07721-1) 30.64 kg/m2 09/16/2024 07:03 PM Heart Rate (8867-4) 80 /min Blood Pressure Systolic (8480-6) 115 mm[Hg] Blood Pressure Diastolic (8462-4) 57 mm[Hg] 09/17/2024 08:02 AM Heart Rate (8867-4) 88 /min Blood Pressure Systolic (8480-6) 145 mm[Hg] Blood Pressure Diastolic (8462-4) 73 mm[Hg] 09/17/2024 03:54 PM Body Weight (19965-0) 173.2 [lb_av ] Body Mass Index (95021-2) 30.68 kg/m2 09/18/2024 08:08 AM Body Weight (96618-2) 170 [lb_av] Body Mass Index (59307-9) 30.11 kg/m2 09/18/2024 08:07 AM Heart Rate [...] 70 mm[Hg] 09/19/2024 11:54 AM Body Weight (40305-3) 171.2 [lb_av ] Body Mass Index (11827-0) 30.32 kg/m2 09/19/2024 06:27 PM Heart Rate (8867-4) 80 /min Blood Pressure Systolic (8480-6) 130 mm[Hg] Blood Pressure Diastolic (8462-4) 80 mm[Hg] 09/20/2024 02:56 PM Body Weight (39168-4) 170.2 [lb_av ] Body Mass Index (46436-3) 30.15 kg/m2 09/20/2024 10:11 AM Heart Rate [...] 65 /min 09/21/2024 09:38 AM Body Weight (54209-1) 169 [lb_av] Body Mass Index (82137-1) 29.93 kg/m2 09/21/2024 07:06 PM Heart Rate (8867-4) 81 /min Blood Pressure Systolic (8480-6) 153 mm[Hg] Blood Pressure Diastolic (8462-4) 73 mm[Hg] 09/22/2024 07:52 AM Heart Rate (8867-4) 69 /min Blood Pressure Systolic (8480-6) 121 mm[Hg] Blood Pressure Diastolic (8462-4) 68 mm[Hg] 09/22/2024 05:34 PM Body Weight (80179-6) 171.4 [lb_av ] Body Mass Index (76593-4) 30.36 kg/m2 09/22/2024 06:32 PM Heart Rate (8867-4) 80 /min Blood Pressure Systolic (8480-6) 150 mm[Hg] Blood Pressure Diastolic (8462-4) 76 mm[Hg] 09/23/2024 06:39 AM Heart Rate (8867-4) 68 /min Blood Pressure Systolic (8480-6) 115 mm[Hg] Blood Pressure Diastolic (8462-4) 58 mm[Hg] 09/23/2024 10:40 AM Body Weight (15294-2) 171 [lb_av] Body Mass Index (48273-8) 30.29 kg/m2 09/23/2024 10:20 PM Heart Rate (8867-4) 65 /min Blood Pressure Systolic (8480-6) 132 mm[Hg] Blood Pressure Diastolic (8462-4) 65 mm[Hg] 09/24/2024 03:06 PM Body Weight (06846-7) 171.3 [lb_av ] Body Mass Index (23862-7) 30.34 kg/m2 09/24/2024 09:28 AM Heart Rate (8867-4) 84 /min Blood Pressure Systolic (8480-6) 127 mm[Hg] Blood Pressure Diastolic (8462-4) 69 mm[Hg] 09/24/2024 11:01 PM Heart Rate (8867-4) 67 /min Blood Pressure Systolic (8480-6) 124 mm[Hg] Blood Pressure Diastolic (8462-4) 82 mm[Hg] 09/25/2024 08:32 AM Body Weight (42141-5) 169.4 [lb_av ] Body Mass Index (70567-9) 30 kg/m2 09/25/2024 07:06 AM Heart Rate [...] 60 mm[Hg] 09/26/2024 05:29 PM Body Weight (90667-4) 173.4 [lb_av ] Body Mass Index (63610-0) 30.71 kg/m2 Social History No smoking Hx information available Encounters Type CPT Code Date Location Provider Indication s encounter report 09/19/2014 11:15 AM VIKAS WRAY MD Advance Directives Directive Description Verification Date Supporting Document(s) Other Directive
--- NOTE | 2024-11-20 12:04 | XRR_ITS ---
PROCEDURE INFORMATION: Exam: XR Chest Exam date and time: 11/20/2024 12:24 PM Age: 74 years old Clinical indication: Fever TECHNIQUE: Imaging protocol: Radiologic exam of the chest. Views: 1 view. COMPARISON: CR XR chest 1V portable [id number] 03/08/2020 8:42 AM FINDINGS: Lungs: Unremarkable. No consolidation. Pleural spaces: Unremarkable. No pleural effusion. No pneumothorax. Heart/Mediastinum: Unremarkable. No cardiomegaly. Diaphragm: There is mild eventration of the left hemidiaphragm. Bones/joints: Unremarkable. XR/XR chest 1V portable [id number] IMPRESSION: No acute findings.
--- NOTE | 2024-11-20 12:13 | PC.NURSE ---
pt had a wet brief on upon arrival, this nurse changed pt into a clean brief.
--- NOTE | 2024-11-20 12:17 | ED_ITS ---
HPI - General Adult 2 General: Chief complaint: General Medical Stated complaint: fall; fever Time Seen by Provider: 11/20/24 12:00 Source: EMS Mode of arrival: EMS Limitations: altered mental status History of Present Illness: 74-year-old female is here from shelter for supposedly fever. Patient had a fall 2 days ago she has a history of dementia patient is able to tell me her name not really able to answer much else she denies any pain anywhere. Related Data Home Medications ?Medication ?Instructions ?Recorded ?Confirmed acetaminophen 325 mg capsule 325 mg PO QID PRN 4 (Tylenol) bisacodyl ea miscellaneous 07/08/23 diclofenac sodium 1 % topical gel 2 g topical QID 06/25 09/15 diphenhydramine HCl 25 mg tablet 25 mg PO TID PRN 06/25 09/15 (Priti-[place] Plus Allergy) fluoxetine 10 mg capsule 10 mg PO DAILY 07/08/23 furosemide 40 mg tablet (Lasix) 40 mg PO DAILY 4 spironolactone 25 mg tablet 25 mg PO DAILY 07/08/23 vitamins A,C,T-qgpe-wrwzuq 4,296 1 cap PO BID 07/08/23 mcg-226 mg-90 mg capsule (PreserVision AREDS) Previous Rx's ?Medication ?Instructions ?Recorded oxycodone-acetaminophen 5 mg-325 1 tab PO Q8H PRN pain #8 tabs 11/19/25 mg tablet (Percocet) Allergies Allergy/AdvReac Type Severity Reaction Status Date / Time No Known Allergies Allergy Verified 07/08/23 13:10 Review of Systems 2 General: Reports: ROS unobtainable due to mental status PFSH ED 2 PFSH: Medical History (Updated 11/20/24 @ 14:23 by Donita Andrews MD) GERD (gastroesophageal reflux disease) -on PPI Overactive bladder Anemia HLD (hyperlipidemia) -lipid panel ordered -on statin HTN (hypertension) -VSS; continue to monitor -on BB Multiple sclerosis Dementia Hemiplegia and hemiparesis following cerebral infarction affecting right dominant side CVA (cerebral vascular accident) -prior CVA with residual right sided weakness, decreased sensation -noted CT head reported as 5.8 cm subacute non-hemorrhagic infarct in left parietal lobe, stable left hemispheric encephalomalacia. MRI head reported as acute/subacute infarct involving L temporal lobe, numerous flow voids throughout the L cerebral hemisphere consistent with AVM. -Echo: EF=68%, G1DD, no RWMA, trace AR -carotid ultrasound with no significant stenosis -Telemetry monitoring -VSS -Fall/aspiration precautions -PT/ST/OT evaluations appreciated -Continue aspirin, statin added -Troponins noted with no significant delta -noted TSH, A1c, lipid panel Family History Mother Breast cancer Denies family history of Colon cancer Ovarian cancer Prostate cancer Diabetes Heart disease Hypercholesteremia Hypertension Uterine cancer Thyroid disease Stroke Social History Smoking and tobacco/nicotine status: former use of tobacco/nicotine Physical Exam 2 Const: COMMON NORMALS: healthy appearing; negative for patient oriented x3 HENMT: COMMON NORMALS: normocephalic and atraumatic HEAD & SCALP: n ormocephalic and atraumatic Eye: COMMON NORMALS: Equal, round and reactive pupils present and EOMs intact bilaterally PUPIL: Yes Equal, round and reactive pupils present Neck/C-Spine: COMMON NORMALS: full ROM and supple Chest: COMMONS NORMALS: normal inspection of the chest Resp: COMMON NORMALS: normal respiratory effort, No retractions, No use of accessory muscles and clear to auscultation bilaterally AUSCULTATION: clear to auscultation bilaterally Cardio: COMMON NORMALS: regular rate, regular rhythm and No murmurs present (Cardio) RATE: regular rate RHYTHM: regular rhythm GI: COMMON NORMALS: Normal to inspection, nondistended, normoactive bowel sounds present, Soft to palpation, non-tender and no masses PALPATION: Yes Soft to palpation Extremity: COMMON NORMALS: normal to inspection and full ROM Neuro: COMMON NORMALS: moves all extremities and no focal motor deficits; negative for patient oriented x3 Psych: COMMON NORMALS: Normal thought process present and cooperative T HOUGHT PROCESS: Normal thought process present Skin: COMMON NORMALS: no rashes or lesions noted and no wounds GENERAL SKIN EXAM: no rashes or lesions noted Course 2 Vital Signs: Vital signs: Vital Signs Temperature 98.6 F 11/20/24 11:55 Pulse Rate 67 11/20/24 14:00 Respiratory Rate 18 11/20/24 11:55 Blood Pressure 129/92 06/29/25 12:30 Pulse Oximetry 93 11/20/24 14:00 Oxygen Delivery Me thod Nasal Cannula 11/20/24 14:00 Oxygen Flow Rate 2 11/20/24 14:00 MDM - General Adult Medical Decision Making Patient presents here from shelter with increased weakness slight confusion she does have a urinary tract infection also anemia no signs of active bleeding here spoke to hospitalist will admit. Medical Records I reviewed the patient's medical records. Lab Data I reviewed the patient's lab results. 11/20/24 12:52 11/20/24 12:52 Radiology Impressions Chest X-Ray 11/20/24 12:04 IMPRESSION: No acute findings. Laboratory Results WBC 11.50 10^3/uL (3.29-11.43) H 11/20/24 12:52 RBC 3.52 10^6/uL (3.85-5.65) L 11/20/24 12:52 Hgb 7.30 g/dL (11.27-16.99) L 11/20/24 12:52 Hct 27.4 % (36-47) L 11/20/24 12:52 MCV 77.8 fl (85-98) L 11/20/24 12:52 MCH 20.7 pg (27-33) L 11/20/24 12:52 MCHC 26.6 g/dL (30-55) L 11/20/24 12:52 RDW 16.2 % (12.1-15.1) H 11/20/24 12:52 Plt Count 281 10^3/cmm (157-399) 11/20/24 12:52 MPV 9.9 fL (7.4-10.4) 11/20/24 12:52 Neut % (Auto) 70.9 % 11/20/24 12:52 Lymph % (Auto) 15.0 % 11/20/24 12:52 Alexander % (Auto) 9.9 % 11/20/24 12:52 Eos % (Auto) 3.1 % 11/20/24 12:52 Baso % (Auto) 0.8 % 11/20/24 12:52 Neut # (Auto) 8.14 10^3/uL (1.8-7.7) H 11/20/24 12:52 Lymph # (Auto) 1.7 10^3/uL (0.8-4.8) 11/20/24 12:52 Alexander # (Auto) 1.1 10^3/uL (0.2-0.9) H 11/20/24 12:52 Eos # (Auto) 0.4 10^3/uL (0.0-0.8) 11/20/24 12:52 Baso # (Auto) 0.1 10^3/uL (0.0-0.1) 11/20/24 12:52 Nucleated RBC % (auto) 0 % 11/20/24 12:52 Nucleated RBCs # 0.0 /100WBC 11/20/24 12:52 Sodium 137 mmol/L (136-145) 11/20/24 12:52 Potassium 4.3 mmol/L (3.5-5.1) 11/20/24 12:52 Chloride 96 mmol/L (98-107) L 11/20/24 12:52 Carbon Dioxide 26 mmol/L (22-29) 11/20/24 12:52 Anion Gap 19.3 (5-19) H 11/20/24 12:52 BUN 19 mg/dL (8-23) 11/20/24 12:52 Creatinine 1.3 mg/dL (0.5-0.9) H 11/20/24 12:52 GFR Calculation Not Reportable 11/20/24 12:52 Glucose 218 mg/dL (65-115) H 11/20/24 12:52 Calculated Osmolality 293 mOsm/kg (285-295) 11/20/24 12:52 Calcium 9.8 mg/dL (8.5-10.5) 11/20/24 12:52 TIBC 295 mcg/dl 11/20/24 12:52 Unsat Iron Binding 268 ug/dL (112-347) 11/20/24 12:52 Total Bilirubin 1.4 mg/dL (0.15-1.2) H 11/20/24 12:52 AST 11 U/L (0-32) 11/20/24 12:52 ALT 13 U/L (0-33) 11/20/24 12:52 Alkaline Phosphatase 162 U/L (35-105) H 11/20/24 12:52 Total Protein 7.3 g/dL (6.6-8.7) 11/20/24 12:52 Albumin 4.0 g/dL (3.5-5.2) 11/20/24 12:52 Globulin 3.3 g/dL (1.3-4.6) 11/20/24 12:52 Urine Color Yellow (Yellow) 11/20/24 12:05 Urine Appearance Clear (CLEAR) 11/20/24 12:05 Urine pH 6.0 (5-7) 11/20/24 12:05 Ur Specific [place] 1.009 (1.005-1.030) 11/20/24 12:05 Urine Protein Negative (Negative) 11/20/24 12:05 Urine Glucose (UA) Negative (Normal) 11/20/24 12:05 Urine Ketones Negative (Negative) 11/20/24 12:05 Urine Blood Negative (Negative) 11/20/24 12:05 Urine Nitrate Positive (Negative) A 11/20/24 12:05 Urine Bilirubin Negative (Negative) 11/20/24 12:05 Urine Urobilinogen 0.2 mg/dL (Negative) 11/20/24 12:05 Ur Leukocyte Esterase 2+ (Negative) A 11/20/24 12:05 Urine RBC 0-2 /hpf (0-2) 11/20/24 12:05 Urine WBC 51-100 /hpf (0-5) H 11/20/24 12:05 Ur Squamous Epith Cells 0-5 /hpf (0-5) 11/20/24 12:05 Amorphous Sediment Not Reportable 11/20/24 12:05 Urine Bacteria 4+ /hpf (NONE) H 11/20/24 12:05 Hyaline Casts 1.65 /lpf 11/20/24 12:05 All radiology interpretation(s) finalized by discharge Discharge Plan Discharge Patient Disposition: Admitted As Inpatient Clinical Impression: Acute cystitis, Anemia Condition: Stable Coding Level of Care Code ED Pipe Installer for Linn Bain
[2024-11-20 12:52] LABS: Glucose Urine UA Negative (Normal); Nitrate Urine Positive (Negative); Specific Gravity, Urine 1.009 (1.005-1.030)
[2024-11-20 12:56] LABS: Add Urine Microscopic? YES
[2024-11-20 13:06] LABS: Hematocrit 27.4 % (36-47); Hemoglobin 7.30 g/dL (11.27-16.99); Mean Corpuscular HGB Conc 26.6 g/dL (30-55); Mean Corpuscular Hemoglobin 20.7 pg (27-33); Mean Corpuscular Volume 77.8 fl (85-98); Nucleated Red Blood Cells % 0 %; Platelet Count 281 10^3/cmm (157-399); Red Blood Count 3.52 10^6/uL (3.85-5.65); White Blood Count 11.50 10^3/uL (3.29-11.43)
[2024-11-20] MEDS: cefTRIAXone 1,000 mg SDV 1000 MG IVP (13:20)
[2024-11-20 13:21] LABS: Alanine Aminotransferase 13 U/L (0-33); Albumin Level 4.0 g/dL (3.5-5.2); Alkaline Phosphatase 162 U/L (35-105); Anion Gap 19.3 (5-19); Aspartate Amino Transferase 11 U/L (0-32); Blood Urea Nitrogen 19 mg/dL (8-23); Calcium 9.8 mg/dL (8.5-10.5); Carbon Dioxide 26 mmol/L (22-29); Chloride 96 mmol/L (98-107); Globulin 3.3 g/dL (1.3-4.6); Glucose 218 mg/dL (65-115); Osmolality Calculated 293 mOsm/kg (285-295); Potassium 4.3 mmol/L (3.5-5.1); Sodium 137 mmol/L (136-145); Total Protein 7.3 g/dL (6.6-8.7)
[2024-11-20 13:23] LABS: Creatinine Clr Calc Pharmacy 37.3415
[2024-11-20 14:21] LABS: Iron 27 ug/dL (37-145); Total Iron Binding Capacity 295 mcg/dl; Unsaturated Iron Binding 268 ug/dL (112-347)
--- NOTE | 2024-11-20 14:44 | PC.NURSE ---
pt changed into gown, ID Band on allergy band on. Pull up on.
--- NOTE | 2024-11-20 14:54 | CTR_ITS ---
PROCEDURE INFORMATION: Exam: CT Abdomen And Pelvis Without Contrast Exam date and time: 11/20/2024 3:09 PM Age: 74 years old Clinical indication: Abdominal pain; Other: Renny, UTI TECHNIQUE: Imaging protocol: Computed tomography of the abdomen and pelvis without contrast. Radiation optimization: All CT scans at this facility use at least one of these dose optimization techniques: automated exposure control; mA and/or kV adjustment per patient size (includes targeted exams where dose is matched to clinical indication); or iterative reconstruction. COMPARISON: CT abdomen pelvis w con* [id number] 12/08/2019 8:55 PM RADIATION DOSE METRICS: Total DLP (mGy-cm): 802.53 FINDINGS: Lungs: There is subsegmental atelectasis in the lung bases. Liver: There is diffuse low-attenuation of the liver relative to the spleen consistent with fatty infiltration. There is no focal liver abnormality. Gallbladder and biliary ducts: The gallbladder is distended. The wall is thin. There are no calcified gallstones. No biliary dilation. Pancreas: The pancreas is unremarkable. Spleen: The spleen is unremarkable. Adrenal glands: The adrenal glands are unremarkable. Kidneys and ureters: The kidneys are unremarkable. No hydronephrosis or stones. No ureteral dilation. Stomach and bowel: The stomach is nondistended, limiting assessment of wall thickness. The small bowel is nondilated. There is mild gas distension of the descending colon. No sign of colonic obstruction or inflammation. Appendix: The appendix is not visible. Intraperitoneal space: There is no free air or significant intraperitoneal free fluid. Vasculature: There is moderate aortic atherosclerotic disease. Lymph nodes: There is no lymphadenopathy in the retroperitoneum, mesentery, pelvis or inguinal regions. Urinary bladder: The Young catheter is appropriately positioned with the bulb and tip within the bladder lumen. The urinary bladder is decompressed, preventing meaningful evaluation of wall thickness. Reproductive: The uterus is unremarkable. There is no adnexal mass or large cyst. Bones/joints: There is mild degenerative disease in the lumbar spine. There are mild compression fractures at T12, T11, T10, T8. Soft tissues: The abdominal wall is intact. CT/CT abdomen pelvis wo con [id number] IMPRESSION: 1. No obstructive uropathy. No stones. 2. Multilevel lower thoracic vertebral compression fracture is of indeterminate acuity, likely chronic. 3. Hepatic steatosis. 4. Incidental findings above.
[2024-11-20 15:32] LABS: INR 1.00 (0.8-1.2); Prothrombin Time 13.90 SECONDS (12.1-14.9)
--- NOTE | 2024-11-20 15:35 | P.HP_ITS ---
Providers/Chief Complaint 2 Admitting Physician: Dean Leblanc MD Primary Care Provider: Diana Cosme Chief Complaint: fall; fever History of Present Illness Lee Ann Leahy is a 74 year old female with past medical history of CVA with chronic right side spastic changes and sensory loss SNF resident, multiple sclerosis, dementia presents to the ER today because of recurrent falls with last fall yesterday when she had presented to the ER and underwent CT head, CT C-spine negative for acute abnormality. Since being back to SNF yesterday she has had multiple episode of vomiting, confusion and high-grade fever. Patient and family denies any diarrhea, bleeding. Currently patient is hemodynamically stable with heart rate of 80 bpm, blood pressure of 160 systolic. As per family member patient has gained up to 30 to 40 pounds in last 1 year. In the ER she was diagnosed of having a UTI and given 1 g of IV ceftriaxone. Review of Systems 2 General: Reports: 10 or more systems reviewed and unremarkable except in HPI and below Const: Denies: fever(s), chills, body aches, change in appetite, change in weight, malaise, night sweats, diaphoresis, change in sleep pattern, daytime sleepiness or snoring Eyes: Denies: change in vision, blurry vision, photophobia, eye discomfort or eye discharge ENMT: Denies: throat pain, enlarged tonsils, hoarseness, mouth pain, oral sores, dry mouth, tinnitus, nasal congestion or post nasal drip Card: Denies: chest pain, palpitations, irregular heart rhythm, edema, swelling of feet/ankles, lightheadedness, syncope, pre-syncope, dyspnea on exertion, orthopnea, leg pain with exertion or acrocyanosis Resp: Denies: dyspnea, productive cough, non-productive cough, wheezing, stridor, pain on inspiration, change in phlegm color, hemoptysis or chest congestion GI: Denies: abdominal pain, nausea, vomiting, hematemesis, coffee ground emesis, dysphagia, heartburn, diarrhea, constipation, bloating, GI cramping, change in bowel habits, pain on defecation, hematochezia or melena : Denies: flank pain, dysuria, urinary frequency, urinary urgency, urinary hesitancy, nocturia or hematuria Musc: Denies: neck pain, back pain, extremity pain, joint pain, joint swelling, joint redness, joint stiffness or limited range of motion Neuro: Denies: headache(s), numbness in extremities, weakness in extremities, sensory changes, lack of coordination, difficulty walking, frequent falls, dizziness, vertigo, confusion, Slurred speech present, difficulty communicating thoughts or seizure-like activity Psych: Denies: anxiety, depression, mood swings, panic attacks, hopelessness or irritability Endo: Denies: polyuria, polydipsia, tired all the time, cold intolerance, excessive sweating, flushing or heat intolerance Len/Lymph: Denies: easy bruising or easy bleeding All/Imm: Denies: tongue swelling, facial swelling or acute wheezing Medications/Allergies Home Medications ?Medication ?Instructions ?Recorded ?Confirmed ?Last Taken ?Type acetaminophen 325 mg capsule 325 mg PO QID PRN 4 Unknown History (Tylenol) bisacodyl ea miscellaneous 07/08/23 U nknown History diclofenac sodium 1 % topical gel 2 g topical QID 06/25 09/15 Unknown History diphenhydramine HCl 25 mg tablet 25 mg PO TID PRN 06/25 09/15 Unknown History (Priti-[place] Plus Allergy) fluoxetine 10 mg capsule 10 mg PO DAILY 07/08/23 Unk nown History furosemide 40 mg tablet (Lasix) 40 mg PO DAILY 4 Unknown History spironolactone 25 mg tablet 25 mg PO DAILY 07/08/23 U nknown History vitamins A,C,X-coqo-lzamsp 4,296 1 cap PO BID 07/08/23 Unknown History mcg-226 mg-90 mg capsule (PreserVision AREDS) oxycodone-acetaminophen 5 mg-325 1 tab PO Q8H PRN pain #8 tabs 11/19/24 Unknown Rx mg tablet (Percocet) Allergies Allergy/AdvReac Type Severity Reaction Status Date / Time No Known Allergies Allergy Verified 07/08/23 13:10 PFSH Acute 2 PFSH: Medical History (Updated 11/20/24 @ 15:41 by Dean Leblanc MD) Family history of lupus anticoagulant disorder Family history of factor V Leiden mutation GERD (gastroesophageal reflux disease) -on PPI Overactive bladder Anemia HLD (hyperlipidemia) -lipid panel ordered -on statin HTN (hypertension) -VSS; continue to monitor -on BB Multiple sclerosis Dementia Hemiplegia and hemiparesis following cerebral infarction affecting right dominant side CVA (cerebral vascular accident) -prior CVA with residual right sided weakness, decreased sensation -noted CT head reported as 5.8 cm subacute non-hemorrhagic infarct in left parietal lobe, stable left hemispheric encephalomalacia. MRI head reported as acute/subacute infarct involving L temporal lobe, numerous flow voids throughout the L cerebral hemisphere consistent with AVM. -Echo: EF=68%, G1DD, no RWMA, trace AR -carotid ultrasound with no significant stenosis -Telemetry monitoring -VSS -Fall/aspiration precautions -PT/ST/OT evaluations appreciated -Continue aspirin, statin added -Troponins noted with no significant delta -noted TSH, A1c, lipid panel Family History Mother Breast cancer Denies family history of Colon cancer Ovarian cancer Prostate cancer Diabetes Heart disease Hypercholesteremia Hypertension Uterine cancer Thyroid disease Stroke Social History Smoking and tobacco/nicotine status: former use of tobacco/nicotine Vitals/I&O/Wt Last Vital Signs Temp 98.6 F 11/20/24 11:55 Pulse 91 11/20/24 15:33 Resp 18 11/20/24 15:00 BP 126/59 11/20/24 15:33 Pulse Ox 98 11/20/24 15:33 O2 Del Method Nasal Cannula 11/20/24 15:00 O2 Flow Rate 2 11/20/24 15:00 Weight last 48 hrs Weight 72.575 kg Physical Exam 2 Narrative: General: No acute distress, AO x3, tired appearing, pallor present, puffy face, bruise under right eye HEENT: PERRLA, pupils bilaterally equal and reactive Chest: Normal vesicular breath sounds, no added sounds, equal good air entry bilaterally CVS: S1-S2 regular, no murmurs, no tachycardia, no gallops, no rubs Abdomen: Soft, nontender, no organomegaly, bowel sounds present Neuro: Residual effects of weakness on the right upper limb and lower limb, no facial deformity, AO x3, power 5/5 in all limbs Urinary Catheter Management: Young: Cath Placed During This Visit: yes Urinary Catheter Date of Insertion: 11/20/24 Urinary Catheter Time of Insertion: 15:07 Data 11/20/24 12:52 11/20/24 12:52 A&P Assessment and plan (1) Acute cystitis: Symptoms consistent with UTI. History of UTI in the past. Appreciate past sensitivities. Check blood culture, follow-up urine culture. Trend procalcitonin, check lactic acid. Check CT on pelvis to rule out kidney stones given mild MENG. IV ceftriaxone 1 g daily for now. (2) Anemia: Baseline creatinine from 5 years ago between 11-13. Currently 7.3. Denies any bleeding. Patient vitals nonconcerning for any shock. Hemoglobin 7.3 currently. Check stool for occult blood, vitamin B12, folate, iron level, reticulocyte count. Given weakness for now we will transfuse 1 unit of PRBC. Start on IV iron supplementation. (3) Fall: Underwent CT spine, CT head and foot x-ray yesterday. Reviewed. No concern for acute injuries. Physical therapy evaluation. (4) Contusion of face: (5) Family history of factor V Leiden mutation: Sister recently diagnosed of having factor V Leyden and lupus anticoagulant disorder after having DVT. Patient has history of stroke. New anemia. Requesting further evaluation. Will check factor V Leyden, RUI, lupus anticoagulant studies. (6) Family history of lupus anticoagulant disorder: Plan Lower limb swelling: As per family the patient has been gaining weight recently. Does have lower limb edema. As per family member always has chronic increased swelling in right leg. Will check lower limb Doppler to rule out DVT. IV Lasix 20 mg one-time. Check echocardiogram. Check TSH, vitamin B12, folate, procalcitonin, reticulocyte count, LDH, stool for occult blood, A1c, lipid panel, TSH. Restart chronic home medications including Prozac. CODE STATUS: Discussed in detail with the patient. Sister will be DPOA. Full code Cardiac diet Protonix for PUD prophylaxis Will start on SCD prophylaxis once DVT is ruled out, hold off on medical prophylaxis given acute anemia. PDMP PDMP Reviewed: Not Reviewed Attestations 2 Medical Necessity Statement*: Admission for more than 2 midnights for management of acute cystitis, MENG, acute anemia discussed with Diagnoses Acute cystitis N30.00 Anemia D64.9 Fall W19.XXXA Contusion of face S00.83XA Family history of factor V Leiden mutation Z83.2 Family history of lupus anticoagulant disorder Z83.2
--- NOTE | 2024-11-20 15:36 | USCV_ITS ---
Lee Ann Leahy Age: 74 Gender: F : 1950 Exam Date: 11/20/2024 16:54 Ordering Phys: Dean Leblanc MD Technologist: Steve Del Rio Exam Location: [facility] – [place] Indication: chf BP: 160 / 62 HR: 87 Rhythm: Sinus Technical Quality: Adequate MEASUREMENTS (Male / Female) Normal Values 2D ECHO LV Diastolic Diameter PLAX 2.6 cm 4.2 - 5.9 / 3.9 - 5.3 cm IVS Diastolic Thickness 1.2 cm 0.6 - 1.0 / 0.6 - 0.9 cm IVS Systolic Thickness 1.3 cm LVPW Diastolic Thickness 1.3 cm 0.6 - 1.0 / 0.6 - 0.9 cm LVPW Systolic Thickness 1.4 cm LVOT Diameter 2.0 cm LV Ejection Fraction 2D Teich 56.5 % LV Ejection Fraction MOD 4C 75.3 % LV Ejection Fraction MOD 2C 76.1 % LV Ejection Fraction 2C AL 76.3 % LA Diameter 3.2 cm RA Systolic Volume 4C AL 19.2 ml RA Systolic Volume 4C MOD 20.4 ml LA Sys Volume AL 21.5 cm cubed LA Sys Volume Index AL 11.8 cm cubed/m squared Aorta at Sinotubular Diameter 2.1 cm M-MODE LA Ao Ratio MM 1.2 AV Cusp Separation MM 1.7 cm DOPPLER AV Peak Velocity 148.0 cm/s LVOT Peak Velocity 128.0 cm/s AV Area Cont Eq vti 2.5 cm squared AV Area Cont Eq pk 2.8 cm squared MV Peak Velocity 108.0 cm/s MV Area PHT 5.5 cm squared Mitral E to A Ratio 0.7 TV Peak Velocity 151.0 cm/s TR Peak Velocity 154.0 cm/s TR Peak Gradient 9.5 mmHg TR Mean Velocity 117.0 cm/s TR Mean Gradient 6.0 mmHg TR Velocity Time Integral 34.9 cm PV Peak Velocity 125.0 cm/s RV Ejection Time 0.2 s FINDINGS Left Ventricle Left ventricle is normal in size. LV systolic function is normal with EF of 60-65%. No regional wall abnormalities are seen. Grade 1 diastolic dysfunction. Right Ventricle Normal in size and function Right Atrium Normal in size Left Atrium Normal in size Mitral Valve Mild mitral annular calcification. Mild mitral regurgitation. Aortic Valve Grossly normal. No significant stenosis or regurgitation. Tricuspid Valve Insufficient TR jet to calculate RVSP Pulmonic Valve Not visualized Pericardium Grossly normal Aorta Normal in size IVC Not visualized CONCLUSIONS LV systolic function is normal with EF of 60-65% Grade 1 diastolic dysfunction Mild mitral regurgitation Edwar Daugherty MD (Electronically Signed) Final Date: 22 November 2024 08:33 S
--- NOTE | 2024-11-20 15:36 | USR_ITS ---
PROCEDURE INFORMATION: Exam: US Duplex Lower Extremity Veins, Bilateral Exam date and time: 11/20/2024 5:24 PM Age: 74 years old Clinical indication: Screening exam; Dvt TECHNIQUE: Imaging protocol: Real-time duplex ultrasound of the bilateral extremities with 2-D foster scale, color Doppler flow and spectral waveform analysis including responses to compression and other maneuvers (when performed) with image documentation. Complete exam focused on the lower extremity veins. COMPARISON: CT hip RT wo con* [id number] 12/08/2019 8:46 PM FINDINGS: Right deep veins: Unremarkable. The common femoral, femoral, proximal profunda femoral and popliteal veins are patent without thrombus. Normal Doppler waveforms. Normal compressibility and/or augmentation response. Left deep veins: Unremarkable. The common femoral, femoral, proximal profunda femoral and popliteal veins are patent without thrombus. Normal Doppler waveforms. Normal compressibility and/or augmentation response. Superficial veins: Greater saphenous veins at the saphenofemoral junctions are patent bilaterally without thrombus. Soft tissues: Unremarkable. US/CV venous duplex [facility] [id number] IMPRESSION: No evidence of deep vein thrombosis.
[2024-11-20 15:39] LABS: Lactic Sepsis W/Reflex 2.3 mmol/L (0.5-2.2)
[2024-11-20 15:50] LABS: Procalcitonin 0.24 ng/mL (0-0.5)
[2024-11-20 15:59] LABS: Estmated Average Glucose 237; Hemoglobin A1C 9.9 % (4.0-6.0)
[2024-11-20 16:19] LABS: Thyroid Stimulating Hormone 2.48 uIU/mL (0.27-4.20); Vitamin B12 371 pg/mL (232-1245)
[2024-11-20 16:56] LABS: Reflex Lactate Order REFLEX LACTIC ORDERD
[2024-11-20] MEDS: FUROsemide 10 mg/mL SDV 2mL 20 MG IVP (16:58)
[2024-11-20] MEDS: pantoprazole 40 mg SDV IVP (16:58)
[2024-11-20] MEDS: iron sucrose 200 MG in sodium chloride 0.9% (100 ml) 100 ML 220 MG IV (16:58)
[2024-11-20 19:37] LABS: Lactic Acid level (Lactate) 1.5 mmol/L (0.5-2.2)
[2024-11-21] VITALS (11 sets, daily range): BP systolic 122–162; BP diastolic 52–73; PULSE 66–99; RESP 16–19; TEMP 36.6–37.2; O2SAT 90–96
[2024-11-21 00:39] LABS: Hemoglobin 8.60 g/dL (11.27-16.99)
[2024-11-21 06:34] LABS: Hematocrit 31.4 % (36-47); Hemoglobin 9.00 g/dL (11.27-16.99); Mean Corpuscular HGB Conc 28.7 g/dL (30-55); Mean Corpuscular Volume 79.5 fl (85-98); Nucleated Red Blood Cells % 0.3 %; Platelet Count 233 10^3/cmm (157-399); Red Blood Count 3.95 10^6/uL (3.85-5.65); White Blood Count 11.10 10^3/uL (3.29-11.43)
[2024-11-21 06:47] LABS: Mean Corpuscular Hemoglobin 22.8 pg (27-33)
[2024-11-21 06:53] LABS: Alanine Aminotransferase 10 U/L (0-33); Albumin Level 3.7 g/dL (3.5-5.2); Alkaline Phosphatase 139 U/L (35-105); Anion Gap 17.8 (5-19); Aspartate Amino Transferase 14 U/L (0-32); Blood Urea Nitrogen 18 mg/dL (8-23); Calcium 9.2 mg/dL (8.5-10.5); Carbon Dioxide 27 mmol/L (22-29); Chloride 100 mmol/L (98-107); Creatinine Clr Calc Pharmacy 35.1814; Globulin 3.0 g/dL (1.3-4.6); Glucose 166 mg/dL (65-115); Magnesium 2.3 mg/dL (1.7-2.3); Osmolality Calculated 298 mOsm/kg (285-295); Potassium 3.8 mmol/L (3.5-5.1); Sodium 141 mmol/L (136-145); Total Protein 6.7 g/dL (6.6-8.7)
[2024-11-21 07:11] LABS: Cholesterol 164 mg/dL (0-200); HDL Cholesterol 37 mg/dL (60-100); Triglycerides 293 mg/dL (0-150)
[2024-11-21 07:18] LABS: Procalcitonin 0.52 ng/mL (0-0.5)
--- NOTE | 2024-11-21 07:36 | NM_ITS ---
WS: [id number] NUCLEAR MEDICINE LUNG VENTILATION AND PERFUSION CLINICAL INFORMATION: assess for PE TECHNIQUE: Ventilation/perfusion lung scan with 31.0 mCi technetium 99m DTPA. 5.4 mCi MAA COMPARISON: Radiograph 11/20/2024 FINDINGS: Cardiomegaly. Central radiotracer deposition on the ventilatory images. No mismatched ventilation/perfusion defects to indicate pulmonary embolus. Normal perfusion uptake. NM/NM pul vent and perfus* [id number] IMPRESSION: 1. Low probability for pulmonary embolus.
--- NOTE | 2024-11-21 08:11 | PC.SOCIAL ---
IMM Update Pg. 2 of IMM Updated and reviewed with patient, who verbalized understanding. Copy provided at bedside.
--- NOTE | 2024-11-21 08:11 | PC.NURSE ---
Patient refuses to talk this am. Refuses to give name. States it is Puddin Tame . Calling this nurse names, saying leave her alone. Breakfast sat in front of patient, would not tell dietary what same was but answered yes when ask if Leahy was last name. This nurse does believe patient knows name this am but will not answer. Patient seems to be very tired and not wanting to wake up at the moment.
--- NOTE | 2024-11-21 08:18 | PC.NURSE ---
Patient refuses to eat this am or take any medications. Stated did not want insulin at this time nor SCDs. Wants left alone
--- NOTE | 2024-11-21 09:42 | PC.NURSE ---
Patient perked up once sister arrived. Patient took medications one at a time and gave name, , place, year.
[2024-11-21] MEDS: cefTRIAXone 1,000 mg SDV 1000 MG IVP (13:07)
[2024-11-21] MEDS: pantoprazole 40 mg SDV IVP (14:44)
[2024-11-21] MEDS: iron sucrose 200 MG in sodium chloride 0.9% (100 ml) 100 ML 220 MG IV (14:44)
--- NOTE | 2024-11-21 18:43 | PC.NURSE ---
This DASHBOARD DEVELOPER asked pts if she wanted a bed bath and hair cleaned, pts was in room alone and said she wanted to wait until morning to have one. Later when family came back they told her to ask for a bath, and continued to tell pts what to say and do. Patient is alert and oriented. This DASHBOARD DEVELOPER asked pts if she wanted to go back to bed and when she said yes family continued to tell her she wanted a bath.
--- NOTE | 2024-11-21 20:57 | P.PN_ITS ---
Subjective 2 Subjective: She is overall doing better, but is not back to her baseline. Still with some superimposed confusion made more difficult by chronic aphasia from prior stroke. Vitals/I&O/Wt Last Vital Signs Temp 98.2 F 11/21/24 16:36 Pulse 91 11/21/24 16:36 Resp 19 H 11/21/24 16:36 BP 129/53 11/21/24 16:36 Pulse Ox 92 11/21/24 15:42 O2 Del Method Room Air 11/21/24 15:42 O2 Flow Rate 2 11/21/24 08:16 11/21/24 11/21/24 11/21/24 06:59 14:59 22:59 Intake Total 350 / 700 240 / 240 350 / 590 Output Total 200 / 1200 650 / 650 Balance 150 / -500 240 / 240 -300 / -60 Weight last 48 hrs Weight 74.786 kg Weight 74.797 kg Weight 74.797 kg Weight 72.575 kg Weight 72.575 kg Physical Exam 2 Narrative: Accompanied by sisters Const: COMMON NORMALS: alert GENERAL APPEARANCE: cooperative O RIENTATION/CONSCIOUSNESS: Yes awake HENMT: COMMON NORMALS: oropharynx normal Neck/C-Spine: COMMON NORMALS: no JVD Resp: COMMON NORMALS: normal respiratory effort and clear to auscultation bilaterally AUSCULTATION: clear to auscultation bilaterally Cardio: COMMON NORMALS: no JVD, regular rhythm, S1 normal heart sound present, S2 normal heart sound present and No murmurs present (Cardio) RHYTHM: regular rhythm HEART SOUNDS: S1 normal heart sound present and S2 normal heart sound present GI: COMMON NORMALS: Normal to inspection, nondistended, normoactive bowel sounds present, Soft to palpation and non-tender PALPATION: Yes Soft to palpation Extremity: COMMON NORMALS: no joint enlargement and no pedal edema Neuro: COMMON NORMALS: moves all extremities SENSORIUM/ORIENTATION: Yes alert Skin: COMMON NORMALS: no rashes or lesions noted GENERAL SKIN EXAM: no rashes or lesions noted Urinary Catheter Management: Young: Cath Placed During This Visit: yes Reason for Continuing Indwelling Catheter: Other Urinary Catheter Date of Insertion: 11/20/24 Urinary Catheter Time of Insertion: 15:07 Data 11/21/24 06:24 11/21/24 06:24 Micro: Microbiology 11/20/24 16:30 Blood Culture - Preliminary Blood NEGATIVE TO DATE 11/20/24 16:42 Blood Culture - Preliminary Blood NEGATIVE TO DATE 11/20/24 12:05 Urine Culture - Preliminary Urine,Clean Catch Gram Negative Rods A&P Assessment and plan (1) Acute cystitis: Acute encephalopathy secondary to urinary tract infection with improvement but not yet back to baseline from history obtained from her sisters. Encephalopathy is made more difficult by chronic aphasia from prior stroke. Continue treatment for UTI Reviewed urine culture. Gram-negative rods more than 100,000. Reviewed blood culture, preliminary negative. Follow-up. Reviewed CT, multilateral lower thoracic vertebrae compression as noted incidentally, without obstructive uropathy. Symptoms consistent with UTI. History of UTI in the past. Appreciate past sensitivities. Check blood culture, follow-up urine culture. Trend procalcitonin, check lactic acid. Continue IV ceftriaxone 1 g daily Discussed with nursing, manager case. (2) Anemia: Reviewed hemoglobin, With improvement so far without evidence of bleeding. Hemoccult requested. Follow-up. Check stool for occult blood, Noted iron deficiency on review. Reviewed vitamin B12, folate, iron level, reticulocyte count. Given weakness for now we will transfuse 1 unit of PRBC. Receiving IV iron supplementation. Risk of anaphylaxis. So far tolerating. (3) Fall: Underwent CT spine, CT head and foot x-ray yesterday. Reviewed. No concern for acute injuries. Physical therapy evaluation. (4) Contusion of face: With persistent swelling. So far without worsening. (5) Family history of factor V Leiden mutation: Reviewed D-dimer, noted abnormal. Reviewed duplex lower extremities, negative for DVT. Discussed with her and family additional assessment by VQ scan. Sister recently diagnosed of having factor V Leyden and lupus anticoagulant disorder after having DVT. Patient has history of stroke. New anemia. Requesting further evaluation. Pending factor V Leyden, RIU, lupus anticoagulant studies. (6) Family history of lupus anticoagulant disorder: Plan Lower limb swelling: As per family member always has chronic increased swelling in right leg. No DVT on venous duplex Pending echocardiogram Sisters deny prior history of dementia. PDMP PDMP Reviewed: Not Reviewed Attestations 2 Medical Necessity Statement*: Continue admission for assessment and management of acute cystitis complicated with encephalopathy, acute anemia. and High MDM includes amount and/or complexity of data reviewed/ordered [ resulted lab(s)/test(s), ordered lab(s)/test(s), independent historian and other healthcare professional discussion] and described risk of complication, morbidity or mortality of management as documented Diagnoses Acute cystitis N30.00 Anemia D64.9 Fall W19.XXXA Contusion of face S00.83XA Family history of factor V Leiden mutation Z83.2 Family history of lupus anticoagulant disorder Z83.2
[2024-11-22] VITALS (7 sets, daily range): BP systolic 122–163; BP diastolic 52–70; PULSE 94–100; RESP 13–18; TEMP 36.9–37.2; O2SAT 93–96
[2024-11-22 05:40] LABS: Hematocrit 31.6 % (36-47); Hemoglobin 8.80 g/dL (11.27-16.99); Mean Corpuscular HGB Conc 27.8 g/dL (30-55); Mean Corpuscular Hemoglobin 22.7 pg (27-33); Mean Corpuscular Volume 81.7 fl (85-98); Nucleated Red Blood Cells % 0.3 %; Platelet Count 255 10^3/cmm (157-399); Red Blood Count 3.87 10^6/uL (3.85-5.65); White Blood Count 10.59 10^3/uL (3.29-11.43)
[2024-11-22 06:04] LABS: Alanine Aminotransferase 12 U/L (0-33); Albumin Level 3.6 g/dL (3.5-5.2); Alkaline Phosphatase 154 U/L (35-105); Anion Gap 17.9 (5-19); Aspartate Amino Transferase 16 U/L (0-32); Blood Urea Nitrogen 17 mg/dL (8-23); Calcium 9.4 mg/dL (8.5-10.5); Carbon Dioxide 27 mmol/L (22-29); Chloride 100 mmol/L (98-107); Creatinine Clr Calc Pharmacy 41.0966; Globulin 3.0 g/dL (1.3-4.6); Glucose 161 mg/dL (65-115); Magnesium 2.5 mg/dL (1.7-2.3); Osmolality Calculated 297 mOsm/kg (285-295); Potassium 3.9 mmol/L (3.5-5.1); Sodium 141 mmol/L (136-145); Total Protein 6.6 g/dL (6.6-8.7)
[2024-11-22 07:46] LABS: Anti-Double Strand DNA AB <1 IU/mL; SM/RNP Antibodies <1.0 NEG AI (<1.0 NEG); SS-B/LA IGG <1.0 NEG AI (<1.0 NEG); Scleroderma Ab(Scl-70) Ab 1.0 POS AI (<1.0 NEG); Ss-A/Ro Igg <1.0 NEG AI (<1.0 NEG)
--- NOTE | 2024-11-22 11:44 | PM.DCS ---
Discharge Providers Date of Admission: 11/20/24 14:19 Date of Discharge: November 22, 2024 Attending Provider at Admission: Dean Leblanc MD Attending Provider at Discharge: Willie Ladd Primary Care Provider: Diana Cosme Diagnoses at Discharge Discharge Diagnosis (1) Acute cystitis: Status: Acute (2) Anemia: Status: Acute (3) Fall: Status: Acute (4) Contusion of face: Status: Acute (5) Family history of factor V Leiden mutation: Status: Acute (6) Family history of lupus anticoagulant disorder: Status: Acute Reason for Visit Reason for Visit: fall; fever Brief History: Lee Ann Leahy is a 74 year old female with past medical history of CVA with chronic right side spastic changes and sensory loss SNF resident, multiple sclerosis, dementia presents to the ER today because of recurrent falls with last fall yesterday when she had presented to the ER and underwent CT head, CT C-spine negative for acute abnormality. Since being back to SNF yesterday she has had multiple episode of vomiting, confusion and high-grade fever. Patient and family denies any diarrhea, bleeding. Currently patient is hemodynamically stable with heart rate of 80 bpm, blood pressure of 160 systolic. As per family member patient has gained up to 30 to 40 pounds in last 1 year. In the ER she was diagnosed of having a UTI and given 1 g of IV ceftriaxone. Hospital Course Hospital Course UTI was treated with ceftriaxone, urine culture eventually growing E. coli resistant to ampicillin and Unasyn. She will complete antibiotic course with cefdinir. Encephalopathy gradually resolved. She does have some underlying aphasia from prior stroke. If concerned about memory persist would refer for follow-up with neurology for additional battery of testing for consideration of dementia. Sisters deny formally diagnosed dementia. Anemia in hospital was followed and remained stable without need for transfusion, but blood counts remain around 9. Hemoccult was requested but not collected due to lack of stool. She is treated with PPI, found to have iron deficiency anemia, received IV iron supplementation hospitalist continuing on iron after discharge. She once she recovers from acute condition, consider referral for endoscopic evaluation of LINDA. Echocardiogram obtained in the hospital showed normal ejection fraction, grade 1 diastolic dysfunction, mild MVR. Recently sisters found positive for hypercoagulable disorder, factor V Leiden, anticardiolipin were sent in hospital and pending, please follow-up final results. Mild abnormality of D-dimer was noted. Lower extremity duplex was negative for DVT VQ scan with low probability for PE. CT abdomen pelvis with chronic multilevel thoracic vertebral compression fracture. Will benefit from further consideration and management of osteoporosis. Please reassess incidentally noted hepatic steatosis. Physical Exam Narrative: Accompanied by her sister. Const: COMMON NORMALS: patient oriented x3 and alert GENERAL APPEARANCE: cooperative ORIENTATION/CONSCIOUSNESS: Yes awake HENMT: COMMON NORMALS: oropharynx normal OTHER: Mild improvement in right side facial swelling. Green-yellow discoloration. Neck/C-Spine: COMMON NORMALS: no JVD Resp: COMMON NORMALS: normal respiratory effort and clear to auscultation bilaterally AUSCULTATION: clear to auscultation bilaterally Cardio: COMMON NORMALS: no JVD, regular rhythm, S1 normal heart sound present, S2 normal heart sound present and No murmurs present (Cardio) RHYTHM: regular rhythm HEART SOUNDS: S1 normal heart sound present and S2 normal heart sound present GI: COMMON NORMALS: Normal to inspection, nondistended, normoactive bowel sounds present, Soft to palpation and non-tender PALPATION: Yes Soft to palpation Extremity: COMMON NORMALS: no joint enlargement and no pedal edema Neuro: COMMON NORMALS: patient oriented x3 and moves all extremities SENSORIUM/ORIENTATION: Yes alert OTHER: Chronic right-sided weakness/contracture. Moderate aphasia. Skin: COMMON NORMALS: no rashes or lesions noted GENERAL SKIN EXAM: no rashes or lesions noted Urinary Catheter Management: Young: Cath Placed During This Visit: yes Reason for Continuing Indwelling Catheter: Other Urinary Catheter Date of Insertion: 11/20/24 Urinary Catheter Time of Insertion: 15:07 Discharge Data Studies Completed and Pending Completed Studies During Hospitalization Category Date Time Status CT abdomen pelvis wo con [id number] Stat Cat Scan 11/20/24 14:54 Completed XR chest 1V portable [id number] Stat Exams 11/20/24 12:04 Completed NM pulmonary ventilation and perfusion [NM pul vent and Nuc Med 11/21/24 07:36 Completed perfus* [id number]] [place] [id number] Routine Ultrasound 11/20/24 15:36 Completed CV. echo complete* [id number] Routine Ultrasound 11/20/24 15:36 Completed Pending at discharge Category Date Time Status Blood Culture Stat Lab 11/20/24 16:30 Results Complete Blood Count w/Auto AM LABS Lab 11/23/24 04:00 Ordered Comprehensive Metabolic Panel AM LABS Lab 11/23/24 04:00 Ordered Factor 5 Leiden Mutation Stat Lab 11/20/24 16:42 Received Lupus Inhibitor Panel Anticoag Stat Lab 11/20/24 16:42 Received Magnesium AM LABS Lab 11/23/24 04:00 Ordered Occult Blood Stool [Immunochemical Fecal OCB] Routine Lab 11/20/24 15:02 Uncollected Phosphorus AM LABS Lab 11/23/24 04:00 Ordered Radiology Impressions Chest X-Ray 11/20/24 12:04 IMPRESSION: No acute findings. Abdomen/Pelvis CT 11/20/24 14:54 IMPRESSION: 1. No obstructive uropathy. No stones. 2. Multilevel lower thoracic vertebral compression fracture is of indeterminate acuity, likely chronic. 3. Hepatic steatosis. 4. Incidental findings above. Venous Duplex 11/20/24 15:36 IMPRESSION: No evidence of deep vein thrombosis. Pulmonary Perfusion Imaging 11/21/24 07:36 IMPRESSION: 1. Low probability for pulmonary embolus. Laboratory Results WBC 10.59 10^3/uL (3.29-11.43) 11/22/24 04:59 RBC 3.87 10^6/uL (3.85-5.65) 11/22/24 04:59 Hgb 8.80 g/dL (11.27-16.99) L 11/22/24 04:59 Hct 31.6 % (36-47) L 11/22/24 04:59 MCV 81.7 fl (85-98) L 11/22/24 04:59 MCH 22.7 pg (27-33) L 11/22/24 04:59 MCHC 27.8 g/dL (30-55) L 11/22/24 04:59 RDW 17.8 % (12.1-15.1) H 11/22/24 04:59 Plt Count 255 10^3/cmm (157-399) 11/22/24 04:59 MPV 9.8 fL (7.4-10.4) 11/22/24 04:59 Neut % (Auto) 69.1 % 11/22/24 04:59 Lymph % (Auto) 16.4 % 11/22/24 04:59 Haakon % (Auto) 9.8 % 11/22/24 04:59 Eos % (Auto) 3.0 % 11/22/24 04:59 Baso % (Auto) 0.8 % 11/22/24 04:59 Reticulocyte % (Auto) 2.8 % (0.5-2.0) H 11/20/24 12:52 Neut # (Auto) 7.30 10^3/uL (1.8-7.7) 11/22/24 04:59 Lymph # (Auto) 1.7 10^3/uL (0.8-4.8) 11/22/24 04:59 Haakon # (Auto) 1.0 10^3/uL (0.2-0.9) H 11/22/24 04:59 Eos # (Auto) 0.3 10^3/uL (0.0-0.8) 11/22/24 04:59 Baso # (Auto) 0.1 10^3/uL (0.0-0.1) 11/22/24 04:59 Nucleated RBC % (auto) 0.3 % 11/22/24 04:59 Nucleated RBCs # 0.0 /100WBC 11/22/24 04:59 PT 13.90 SECONDS (12.1-14.9) 11/20/24 12:52 INR 1.00 (0.8-1.2) 11/20/24 12:52 D-Dimer 1.23 ug/mLFEU (0-0.59) H 11/20/24 12:52 Sodium 141 mmol/L (136-145) 11/22/24 04:59 Potassium 3.9 mmol/L (3.5-5.1) 11/22/24 04:59 Chloride 100 mmol/L (98-107) 11/22/24 04:59 Carbon Dioxide 27 mmol/L (22-29) 11/22/24 04:59 Anion Gap 17.9 (5-19) 11/22/24 04:59 BUN 17 mg/dL (8-23) 11/22/24 04:59 Creatinine 1.2 mg/dL (0.5-0.9) H 11/22/24 04:59 GFR Calculation Not Reportable 11/22/24 04:59 Glucose 161 mg/dL (65-115) H 11/22/24 04:59 POC Glucose 186 mg/dL (70-110) H 11/22/24 06:28 Estimat Average Glucose 237 11/20/24 12:52 Hemoglobin A1c 9.9 % (4.0-6.0) H 11/20/24 12:52 Calculated Osmolality 297 mOsm/kg (285-295) H 11/22/24 04:59 Lactic Acid 2.3 mmol/L (0.5-2.2) H 11/20/24 12:52 Lactic Acid (Sepsis) 1.5 mmol/L (0.5-2.2) 11/20/24 19:11 Calcium 9.4 mg/dL (8.5-10.5) 11/22/24 04:59 Phosphorus 3.2 mg/dL (2.5-4.5) 11/22/24 04:59 Magnesium 2.5 mg/dL (1.7-2.3) H 11/22/24 04:59 Iron 27 ug/dL (37-145) L 11/20/24 12:52 TIBC 295 mcg/dl 11/20/24 12:52 % Saturation 9.1 % (20-50) L 11/20/24 12:52 Unsat Iron Binding 268 ug/dL (112-347) 11/20/24 12:52 Total Bilirubin 1.3 mg/dL (0.15-1.2) H 11/22/24 04:59 AST 16 U/L (0-32) 11/22/24 04:59 ALT 12 U/L (0-33) 11/22/24 04:59 Alkaline Phosphatase 154 U/L (35-105) H 11/22/24 04:59 Lactate Dehydrogenase 222 U/L (135-214) H 11/20/24 12:52 Total Protein 6.6 g/dL (6.6-8.7) 11/22/24 04:59 Albumin 3.6 g/dL (3.5-5.2) 11/22/24 04:59 Globulin 3.0 g/dL (1.3-4.6) 11/22/24 04:59 Triglycerides 293 mg/dL (0-150) H 11/21/24 06:24 Cholesterol 164 mg/dL (0-200) 11/21/24 06:24 LDL Cholesterol, Calc 68 mg/dL (50-129) 11/21/24 06:24 HDL Cholesterol 37 mg/dL (60-100) L 11/21/24 06:24 LDL/HDL Ratio 1.84 RATIO (0.00-3.22) 11/21/24 06:24 Cholesterol/HDL Ratio 4.43 mg/dL (0.0-4.40) H 11/21/24 06:24 Vitamin B12 371 pg/mL (232-1245) 11/20/24 12:52 Folate 10.9 ng/mL (4.8-37.3) 11/21/24 06:24 Procalcitonin 0.52 ng/mL (0-0.5) H 11/21/24 06:24 TSH 2.48 uIU/mL (0.27-4.20) 11/20/24 12:52 Urine Color Yellow (Yellow) 11/20/24 12:05 Urine Appearance Clear (CLEAR) 11/20/24 12:05 Urine pH 6.0 (5-7) 11/20/24 12:05 Ur Specific [place]ina 1.009 (1.005-1.030) 11/20/24 12:05 Urine Protein Negative (Negative) 11/20/24 12:05 Urine Glucose (UA) Negative (Normal) 11/20/24 12:05 Urine Ketones Negative (Negative) 11/20/24 12:05 Urine Blood Negative (Negative) 11/20/24 12:05 Urine Nitrate Positive (Negative) A 11/20/24 12:05 Urine Bilirubin Negative (Negative) 11/20/24 12:05 Urine Urobilinogen 0.2 mg/dL (Negative) 11/20/24 12:05 Ur Leukocyte Esterase 2+ (Negative) A 11/20/24 12:05 Urine RBC 0-2 /hpf (0-2) 11/20/24 12:05 Urine WBC 51-100 /hpf (0-5) H 11/20/24 12:05 Ur Squamous Epith Cells 0-5 /hpf (0-5) 11/20/24 12:05 Amorphous Sediment Not Reportable 11/20/24 12:05 Urine Bacteria 4+ /hpf (NONE) H 11/20/24 12:05 Hyaline Casts 1.65 /lpf 11/20/24 12:05 [id number] Antibody <1.0 neg AI (<1.0 NEG) 11/20/24 16:42 SS-A/Ro IgG Antibody <1.0 neg AI (<1.0 NEG) 11/20/24 16:42 SS-B/La IgG Antibody <1.0 neg AI (<1.0 NEG) 11/20/24 16:42 Anti-nRNP/Sm IgG Ab <1.0 neg AI (<1.0 NEG) 11/20/24 16:42 Scl-70 Scleroderma Ab 1.0 pos AI (<1.0 NEG) A 11/20/24 16:42 Anti-ds DNA IgG Ab <1 IU/mL 11/20/24 16:42 Blood Type B Positive 11/20/24 16:42 Rho(D) Type Rh positive 11/20/24 16:42 Antibody Screen Negative 11/20/24 16:42 Crossmatch See Detail 11/20/24 16:42 Vitals Last Vital Signs Temp 98.5 F 11/22/24 08:00 Pulse 97 11/22/24 08:00 Resp 18 11/22/24 08:00 BP 122/66 11/22/24 08:00 Pulse Ox 96 11/22/24 07:54 O2 Del Method Nasal Cannula 11/22/24 07:54 O2 Flow Rate 2 11/22/24 08:00 Discharge Plan Discharge Patient Disposition: Xfer SNF Condition: Stable Prescriptions: New cefdinir 300 mg capsule 300 mg PO BID 4 Days Qty: 8 0RF ferrous sulfate 325 mg (65 mg iron) tablet 325 mg PO EVERY OTHER DAY Qty: 90 0RF Continued PreserVision AREDS 4,296 mcg-226 mg-90 mg capsule 1 cap PO BID oxycodone-acetaminophen [Percocet] 5-325 mg tablet 1 tab PO Q8H PRN (Reason: pain) Qty: 8 0RF atorvastatin 40 mg tablet 40 mg PO DAILY acetaminophen [Tylenol] 325 mg Tablet 650 mg PO QID PRN (Reason: Fever Or Pain) carvedilol 6.25 mg tablet 6.25 mg PO BID loperamide [Imodium A-D] 2 mg Tablet 2 mg PO DAILY aspirin [Slava Low Dose Aspirin] 81 mg Tablet,Delayed Release (Dr/Ec) 81 mg PO DAILY potassium chloride 20 mEq tablet,ER particles/crystals 20 meq PO DAILY omeprazole 20 mg capsule,delayed release(DR/EC) 20 mg PO DAILY fluticasone propionate 50 mcg/actuation spray,suspension 1 spray INTRANASAL DAILY PRN (Reason: Allergy Symptoms) Systane (propylene glycol) 0.4-0.3 % drops 1 drp ophthalmic (eye) TID escitalopram oxalate 5 mg tablet 5 mg PO DAILY Biofreeze (menthol) 4 % Gel 1 applic TOPICAL BID PRN (Reason: Pain) baclofen 5 mg tablet 5 mg PO TID PRN (Reason: JOINT PAIN) Changed furosemide [Lasix] 40 mg tablet 40 mg PO DAILY PRN (Reason: Edema) Qty: 1 0RF Rx Instructions: Dose change only Discharge Orders: Discharge Order (Routine); Ordered 11/22/24 Ordered By: Willie Ladd Referrals: [facility] [Outside] Diana Cosem PA [Primary Care Provider, [employer]] Discharge Diet: Diabetic and Low Cholesterol Discharge Activity: As per PT/OT instructions Patient Instructions: Cefdinir (By mouth), Urinary Tract Infection in Older Adults (GEN), Opioid Safety, Patient Portal & [place] Instructions Activity Restrictions/Additional Instructions: Please complete antibiotic. Follow-up with your primary provider for reassessment. Discuss anemia and iron deficiency with your primary provider and discuss referral for endoscopic evaluation of the iron deficiency anemia. Have your primary doctor recheck your blood counts. In case concerns for memory loss persist, discussed with your primary doctor referral for additional assessment by neurology. Follow-up with your primary doctor to follow-up final results of hypercoagulable workup including factor V Leiden, lupus anticoagulant. Your venous duplex of the legs and pulmonary scan were negative for blood clots. Please follow-up with your primary doctor regarding chronic thoracic vertebral compression fractures and starting treatment for osteoporosis. Please follow-up with your primary doctor regarding incidentally seen fatty liver disease. Discharge Attestations Time Spent in Discharge Care*: greater than 30 min Status at Discharge: Cognitive status at discharge: cognitively intact, Behavioral status at discharge: cooperative and dependent in ADL's, Quality Metrics Clinical Quality Measures [ No reported AMI, CVA or VTE this stay] Coding Level of Care Code 36942 Total time (in minutes) for Discharge: 45 Diagnoses Acute cystitis N30.00 Anemia D64.9 Fall W19.XXXA Contusion of face S00.83XA Family history of factor V Leiden mutation Z83.2 Family history of lupus anticoagulant disorder Z83.2
[2024-11-22] MEDS: cefTRIAXone 1,000 mg SDV 1000 MG IVP (12:34)
--- NOTE | 2024-11-22 14:04 | PC.NURSE ---
Called report to Carlee Ca RN at [facility]
[2024-11-22 20:36] LABS: PTT-LA-Screen 33 sec (< OR = 40)
--- OUTSIDE RECORDS SUMMARY | 2024-11-30 07:03 | XMS_ITS | Continuity of Care Document ---
Author Organization [employer] [facility] ([facility]) Address [address] [place] [address] Insurance Providers Payer Plan Claims Address Claims Phone Policy Number Group Number Relation Employer Guarantor Name Guarantor Guarantor Address Guarantor Phone [employer] [id number] [place] [address] tel:[phone] [id number] Self Lee Ann Armond [address] [place] [id number] MEDIC AID [id number] Self Lee Ann Armond 1950 [address] [place] [address] [employer]V [address] [address], [place] [address] tel:[phone] [id number] Self Lee Ann Armond 1950 [address] [place] [address] Problems Condition ICD9 code ICD10 code SNOMED [...] Unspecified osteoarthritis, unspecified site M19.90 09/19/2014 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 Z79.82 05/25/2018 Active [...] Status acetaminophen 325 mg tablet (acetaminophen) 2 ffmh=889 MG, oral, Every 6 Hours - PRN, [...] 75 mm[Hg] 05/03/2024 09:19 AM Body Weight (57247-6) 163.4 [lb_av ] Body Mass Index (33001-2) 28.94 kg/m2 05/03/2024 07:28 AM Heart Rate (8867-4) 71 /min Blood Pressure Systolic (8480-6) 104 mm[Hg] Blood Pressure Diastolic (8462-4) 58 mm[Hg] 05/02/2024 09:18 PM Heart Rate (8867-4) 81 /min Blood Pressure Systolic (8480-6) 147 mm[Hg] Blood Pressure Diastolic (8462-4) 62 mm[Hg] 05/02/2024 09:43 AM Body Weight (55838-3) 168.6 [lb_av ] Body Mass Index (77466-6) 29.86 kg/m2 05/02/2024 07:31 AM Heart Rate (8867-4) 81 /min Blood Pressure Systolic (8480-6) 116 mm[Hg] Blood Pressure Diastolic (8462-4) 62 mm[Hg] 05/01/2024 07:24 PM Heart Rate (8867-4) 71 /min Blood Pressure Systolic (8480-6) 119 mm[Hg] Blood Pressure Diastolic (8462-4) 68 mm[Hg] 05/01/2024 11:32 AM Body Weight (39008-4) 166.7 [lb_av ] Body Mass Index (46282-0) 29.53 kg/m2 05/01/2024 08:42 AM Heart Rate (8867-4) 79 /min Blood Pressure Systolic (8480-6) 124 mm[Hg] Blood Pressure Diastolic (8462-4) 72 mm[Hg] 04/30/2024 07:23 PM Heart Rate (8867-4) 71 /min Blood Pressure Systolic (8480-6) 119 mm[Hg] Blood Pressure Diastolic (8462-4) 71 mm[Hg] 04/30/2024 09:10 AM Body Weight (63757-1) 167 [lb_av] Body Mass Index (44807-2) 29.58 kg/m2 04/30/2024 09:01 AM Heart Rate (8867-4) 82 /min Blood Pressure Systolic (8480-6) 123 mm[Hg] Blood Pressure Diastolic (8462-4) 74 mm[Hg] 04/29/2024 07:02 PM Heart Rate (8867-4) 74 /min Blood Pressure Systolic (8480-6) 133 mm[Hg] Blood Pressure Diastolic (8462-4) 71 mm[Hg] 04/29/2024 08:53 AM Body Weight (20032-4) 165.6 [lb_av ] Body Mass Index (56853-0) 29.33 kg/m2 04/29/2024 07:57 AM Heart Rate (8867-4) 80 /min Blood Pressure Systolic (8480-6) 126 mm[Hg] Blood Pressure Diastolic (8462-4) 60 mm[Hg] 04/28/2024 09:15 AM Body Weight (21076-1) 165.4 [lb_av ] Body Mass Index (55015-2) 29.3 kg/m2 04/27/2024 09:38 AM Body Weight (27245-9) 163.2 [lb_av ] Body Mass Index (23262-9) 28.91 kg/m2 04/27/2024 06:44 AM Temperature (8310-5) 98 [degF] Oxygen Saturation (15670-1) 90 % Respiratory Rate (9279-1) 18 /min 04/26/2024 09:34 AM Body Weight (45782-7) 163.2 [lb_av ] Body Mass Index (97063-0) 28.91 kg/m2 04/25/2024 09:01 AM Body Weight (10283-8) 162.4 [lb_av ] Body Mass Index (50155-3) 28.76 kg/m2 04/24/2024 10:02 AM Body Weight (32628-7) 163.6 [lb_av ] Body Mass Index (71576-2) 28.98 kg/m2 04/23/2024 09:26 AM Body Weight (38001-4) 163.8 [lb_av ] Body Mass Index (56942-9) 29.01 kg/m2 04/22/2024 07:40 AM Body Weight (70508-3) 163.2 [lb_av ] Body Mass Index (13265-1) 28.91 kg/m2 04/21/2024 09:20 AM Body Weight (08670-7) 167 [lb_av] Body Mass Index (83394-3) 29.58 kg/m2 04/20/2024 08:27 AM Temperature (8310-5) 98.7 [degF] Oxygen Saturation (08387-8) 93 % Respiratory Rate (9279-1) 18 /min 04/20/2024 08:26 AM Body Weight (28472-3) 162.8 [lb_av ] Body Mass Index (52139-3) 28.84 kg/m2 04/19/2024 08:32 AM Body Weight (16135-0) 163.8 [lb_av ] Body Mass Index (95323-8) 29.01 kg/m2 04/18/2024 06:39 AM Body Weight (18874-0) 164.2 [lb_av ] Body Mass Index (69987-5) 29.08 kg/m2 04/17/2024 10:53 AM Body Weight (38282-4) 166.4 [lb_av ] Body Mass Index (41895-0) 29.47 kg/m2 04/16/2024 04:28 PM Body Weight (30496-7) 166.2 [lb_av ] Body Mass Index (05544-3) 29.44 kg/m2 04/15/2024 04:09 PM Body Weight (11251-8) 166.2 [lb_av ] Body Mass Index (06664-7) 29.44 kg/m2 04/14/2024 06:46 AM Body Weight (00060-1) 163.4 [lb_av ] Body Mass Index (82106-7) 28.94 kg/m2 04/13/2024 12:20 PM Body Weight (50792-4) 166.6 [lb_av ] Body Mass Index (37016-0) 29.51 kg/m2 04/13/2024 09:18 AM Temperature (8310-5) 98.2 [degF] Oxygen Saturation (61967-5) 96 % Respiratory Rate (9279-1) 16 /min 04/12/2024 11:19 AM Body Weight (39507-9) 166.2 [lb_av ] Body Mass Index (78693-1) 29.44 kg/m2 04/11/2024 09:55 AM Body Weight (28855-3) 167 [lb_av] Body Mass Index (11296-0) 29.58 kg/m2 04/10/2024 04:03 PM Body Weight (88594-0) 167.1 [lb_av ] Body Mass Index (99061-9) 29.6 kg/m2 04/09/2024 04:23 PM Body Weight (92337-5) 167.4 [lb_av ] Body Mass Index (05081-3) 29.65 kg/m2 04/08/2024 03:27 PM Body Weight (65175-8) 167.2 [lb_av ] Body Mass Index (91573-5) 29.61 kg/m2 04/07/2024 11:07 AM Body Weight (72931-3) 164.2 [lb_av ] Body Mass Index (87268-8) 29.08 kg/m2 04/06/2024 09:47 AM Temperature (8310-5) 98.1 [degF] Oxygen Saturation (55424-7) 97 % Respiratory Rate (9279-1) 17 /min Body Weight (14204-7) 164.8 [lb_av] Body Mass Index (01984-4) 29.19 kg/m2 04/05/2024 07:21 AM Body Weight (91445-7) 163.8 [lb_av ] Body Mass Index (03608-4) 29.01 kg/m2 04/04/2024 05:13 PM Body Weight (82590-0) 167.8 [lb_av ] Body Mass Index (37939-9) 29.72 kg/m2 04/02/2024 03:27 PM Body Weight (01646-0) 172.1 [lb_av ] Body Mass Index (85430-3) 30.48 kg/m2 04/01/2024 03:02 PM Body Weight (39148-5) 172.8 [lb_av ] Body Mass Index (51082-5) 30.61 kg/m2 03/31/2024 04:38 PM Body Weight (82356-6) 173.2 [lb_av ] Body Mass Index (87290-1) 30.68 kg/m2 03/30/2024 01:50 PM Body Weight (60702-1) 173.2 [lb_av ] Body Mass Index (35040-9) 30.68 kg/m2 03/30/2024 10:41 AM Temperature (8310-5) 97.6 [degF] Oxygen Saturation (05060-6) 95 % Respiratory Rate (9279-1) 16 /min 03/29/2024 05:46 PM Body Weight (68268-0) 168 [lb_av] Body Mass Index (14390-7) 29.76 kg/m2 03/28/2024 01:15 PM Body Weight (23160-2) 167.4 [lb_av ] Body Mass Index (07928-4) 29.65 kg/m2 03/27/2024 08:34 AM Body Weight (08765-2) 162.6 [lb_av ] Body Mass Index (36602-5) 28.8 kg/m2 03/26/2024 03:00 PM Body Weight (43527-8) 162.2 [lb_av ] Body Mass Index (36218-9) 28.73 kg/m2 03/25/2024 11:31 AM Body Weight (82179-0) 162 [lb_av] Body Mass Index (63138-9) 28.69 kg/m2 03/24/2024 11:29 PM Temperature (8310-5) 99.3 [degF] 03/24/2024 03:21 PM Body Weight (62639-0) 163.1 [lb_av ] Body Mass Index (46588-7) 28.89 kg/m2 03/24/2024 10:42 AM Temperature (8310-5) 99.9 [degF] 2024 10:56 PM Temperature (8310-5) 98.3 [degF] 2024 09:53 AM Temperature (8310-5) 98.6 [degF] Oxygen Saturation (82596-1) 93 % Respiratory Rate (9279-1) 16 /min 2024 09:49 AM Temperature (8310-5) 98.6 [degF] Body Weight (91294-8) 163.2 [lb_av] Body Mass Index (01919-5) 28.91 kg/m2 03/22/2024 09:01 AM Body Weight (49084-4) 162.6 [lb_av ] Body Mass Index (99776-9) 28.8 kg/m2 03/21/2024 12:18 PM Body Weight (87348-6) 164.8 [lb_av ] Body Mass Index (53586-9) 29.19 kg/m2 03/19/2024 06:59 PM Body Weight (20059-1) 166.2 [lb_av ] Body Mass Index (78617-4) 29.44 kg/m2 03/16/2024 11:24 AM Body Weight (53970-7) 163.4 [lb_av ] Body Mass Index (13655-1) 28.94 kg/m2 03/16/2024 09:27 AM Oxygen Saturation (33909-8) 98 % Respiratory Rate (9279-1) 16 /min 03/14/2024 10:19 AM Body Weight (07425-7) 161.8 [lb_av ] Body Mass Index (47661-8) 28.66 kg/m2 03/13/2024 04:14 PM Body Weight (33942-1) 161 [lb_av] Body Mass Index (98476-8) 28.52 kg/m2 03/12/2024 04:00 PM Body Weight (19954-7) 161.2 [lb_av ] Body Mass Index (03332-1) 28.55 kg/m2 03/11/2024 10:34 AM Body Weight (88567-9) 161.4 [lb_av ] Body Mass Index (19082-9) 28.59 kg/m2 03/10/2024 03:31 PM Body Weight (76178-4) 162.8 [lb_av ] Body Mass Index (42662-7) 28.84 kg/m2 03/09/2024 12:09 PM Body Weight (51694-3) 164.4 [lb_av ] Body Mass Index (20539-3) 29.12 kg/m2 03/09/2024 09:29 AM Oxygen Saturation (42398-8) 92 % Respiratory Rate (9279-1) 18 /min 03/08/2024 04:12 PM Body Weight (57424-1) 165 [lb_av] Body Mass Index (25739-1) 29.23 kg/m2 03/07/2024 08:59 AM Body Weight (74350-5) 165.4 [lb_av ] Body Mass Index (91596-2) 29.3 kg/m2 03/06/2024 03:40 PM Body Weight (74453-4) 164.8 [lb_av ] Body Mass Index (58278-3) 29.19 kg/m2 03/05/2024 04:32 PM Body Weight (42622-8) 165.9 [lb_av ] Body Mass Index (86835-9) 29.38 kg/m2 03/04/2024 03:01 PM Body Weight (02103-5) 165.6 [lb_av ] Body Mass Index (53371-0) 29.33 kg/m2 03/03/2024 08:45 AM Body Weight (57939-6) 163 [lb_av] Body Mass Index (34740-4) 28.87 kg/m2 03/02/2024 10:30 AM Oxygen Saturation (89536-4) 98 % Respiratory Rate (9279-1) 17 /min Body Weight (49601-7) 162.2 [lb_av] Body Mass Index (45479-0) 28.73 kg/m2 02/29/2024 12:55 PM Body Weight (64922-0) 165.8 [lb_av ] Body Mass Index (82548-8) 29.37 kg/m2 02/28/2024 11:25 AM Body Weight (91516-6) 163.6 [lb_av ] Body Mass Index (09990-8) 28.98 kg/m2 02/27/2024 04:11 PM Body Weight (83153-5) 163 [lb_av] Body Mass Index (81930-3) 28.87 kg/m2 02/26/2024 10:53 AM Body Weight (35857-0) 163 [lb_av] Body Mass Index (97379-9) 28.87 kg/m2 02/25/2024 10:12 AM Body Weight (86575-1) 163.2 [lb_av ] Body Mass Index (08816-0) 28.91 kg/m2 02/24/2024 02:20 PM Body Weight (65617-2) 163 [lb_av] Body Mass Index (10694-5) 28.87 kg/m2 02/24/2024 02:13 PM Oxygen Saturation (84362-5) 97 % Respiratory Rate (9279-1) 16 /min 02/23/2024 07:39 AM Body Weight (60693-7) 162.4 [lb_av ] Body Mass Index (44788-5) 28.76 kg/m2 02/22/2024 10:03 AM Body Weight (21633-3) 163.4 [lb_av ] Body Mass Index (93772-5) 28.94 kg/m2 02/21/2024 02:30 PM Body Weight (12722-3) 162.8 [lb_av ] Body Mass Index (81024-3) 28.84 kg/m2 02/20/2024 11:21 AM Body Weight (68948-8) 162.2 [lb_av ] Body Mass Index (04983-6) 28.73 kg/m2 02/19/2024 12:23 PM Body Weight (39220-8) 165 [lb_av] Body Mass Index (92188-9) 29.23 kg/m2 02/18/2024 03:11 PM Body Weight (67560-5) 163.6 [lb_av ] Body Mass Index (12811-6) 28.98 kg/m2 02/17/2024 11:16 AM Body Weight (68607-1) 159.6 [lb_av ] Body Mass Index (50263-2) 28.27 kg/m2 02/15/2024 09:03 AM Body Weight (20251-1) 160.8 [lb_av ] Body Mass Index (87072-2) 28.48 kg/m2 02/14/2024 02:16 PM Body Weight (14952-1) 160 [lb_av] Body Mass Index (67407-1) 28.34 kg/m2 02/13/2024 03:11 PM Body Weight (98555-6) 158.9 [lb_av ] Body Mass Index (15613-6) 28.14 kg/m2 02/12/2024 09:00 AM Body Weight (24611-7) 158.4 [lb_av ] Body Mass Index (44660-1) 28.06 kg/m2 02/11/2024 08:32 AM Body Weight (92650-2) 158.8 [lb_av ] Body Mass Index (08277-9) 28.13 kg/m2 02/10/2024 09:48 AM Body Weight (21803-1) 159.2 [lb_av ] Body Mass Index (05478-1) 28.2 kg/m2 02/09/2024 11:46 AM Body Weight (91848-2) 159.6 [lb_av ] Body Mass Index (69789-1) 28.27 kg/m2 02/08/2024 09:52 AM Body Weight (87385-0) 162.6 [lb_av ] Body Mass Index (28626-0) 28.8 kg/m2 02/07/2024 05:44 PM Body Weight (75004-7) 162.1 [lb_av ] Body Mass Index (13986-3) 28.71 kg/m2 02/06/2024 01:55 PM Body Weight (17794-6) 162.6 [lb_av ] Body Mass Index (70511-2) 28.8 kg/m2 02/05/2024 04:29 PM Body Weight (42245-7) 162.2 [lb_av ] Body Mass Index (11034-7) 28.73 kg/m2 02/04/2024 12:04 PM Body Weight (64946-9) 160 [lb_av] Body Mass Index (08222-0) 28.34 kg/m2 09/23/2018 09:58 AM Body Height (8302-2) 63 [in_us] 05/04/2024 09:36 AM Temperature (8310-5) 98 [degF] Oxygen Saturation (93932-4) 93 % Respiratory Rate (9279-1) 16 /min Heart Rate (8867-4) 83 /min Body Weight (96845-5) 163.2 [lb_av] Body Mass Index (51624-0) 28.91 kg/m2 05/04/2024 06:52 AM Heart Rate (8867-4) 83 /min Blood Pressure Systolic (8480-6) 171 mm[Hg] Blood Pressure Diastolic (8462-4) 68 mm[Hg] 05/04/2024 06:55 PM Heart Rate (8867-4) 82 /min Blood Pressure Systolic (8480-6) 136 mm[Hg] Blood Pressure Diastolic (8462-4) 71 mm[Hg] 05/06/2024 11:20 AM Body Weight (33292-9) 166.4 [lb_av ] Body Mass Index (86526-6) 29.47 kg/m2 05/06/2024 08:22 AM Heart Rate (8867-4) 79 /min Blood Pressure Systolic (8480-6) 118 mm[Hg] Blood Pressure Diastolic (8462-4) 69 mm[Hg] 05/05/2024 06:54 PM Heart Rate (8867-4) 76 /min Blood Pressure Systolic (8480-6) 129 mm[Hg] Blood Pressure Diastolic (8462-4) 68 mm[Hg] 05/05/2024 09:20 AM Body Weight (65241-1) 163.2 [lb_av ] Body Mass Index (67264-8) 28.91 kg/m2 05/05/2024 08:53 AM Heart Rate [...] 73 mm[Hg] 05/08/2024 01:17 PM Body Weight (29621-0) 166.2 [lb_av ] Body Mass Index (08004-3) 29.44 kg/m2 05/08/2024 11:27 AM Heart Rate (8867-4) 77 /min Blood Pressure Systolic (8480-6) 133 mm[Hg] Blood Pressure Diastolic (8462-4) 68 mm[Hg] 05/07/2024 07:02 PM Heart Rate (8867-4) 71 /min Blood Pressure Systolic (8480-6) 122 mm[Hg] Blood Pressure Diastolic (8462-4) 64 mm[Hg] 05/07/2024 04:18 PM Body Weight (61757-8) 166 [lb_av] Body Mass Index (08388-2) 29.4 kg/m2 05/08/2024 07:19 PM Heart Rate [...] 68 mm[Hg] 05/09/2024 08:48 AM Body Weight (93592-0) 163.2 [lb_av ] Body Mass Index (41744-3) 28.91 kg/m2 05/09/2024 08:12 AM Heart Rate (8867-4) 83 /min Blood Pressure Systolic (8480-6) 113 mm[Hg] Blood Pressure Diastolic (8462-4) 53 mm[Hg] 05/10/2024 07:29 PM Heart Rate (8867-4) 86 /min Blood Pressure Systolic (8480-6) 156 mm[Hg] Blood Pressure Diastolic (8462-4) 93 mm[Hg] 05/10/2024 10:17 AM Body Weight (82109-1) 161.8 [lb_av ] Body Mass Index (66387-0) 28.66 kg/m2 05/12/2024 06:29 AM Heart Rate (8867-4) 76 /min Blood Pressure Systolic (8480-6) 112 mm[Hg] Blood Pressure Diastolic (8462-4) 54 mm[Hg] 05/11/2024 07:29 PM Heart Rate (8867-4) 85 /min Blood Pressure Systolic (8480-6) 158 mm[Hg] Blood Pressure Diastolic (8462-4) 80 mm[Hg] 05/11/2024 12:21 PM Temperature (8310-5) 98.5 [degF] Oxygen Saturation (86204-6) 94 % Respiratory Rate (9279-1) 16 /min Heart Rate (8867-4) 89 /min Blood Pressure Systolic (8480-6) 157 mm[Hg] Blood Pressure Diastolic (8462-4) 85 mm[Hg] Body Weight (97230-2) 163.2 [lb_av] Body Mass Index (61090-9) 28.91 kg/m2 05/12/2024 08:00 PM Heart Rate (8867-4) 75 /min Blood Pressure Systolic (8480-6) 127 mm[Hg] Blood Pressure Diastolic (8462-4) 60 mm[Hg] 05/12/2024 10:30 AM Body Weight (82961-4) 163.2 [lb_av ] Body Mass Index (85450-3) 28.91 kg/m2 05/13/2024 07:07 PM Heart Rate (8867-4) 71 /min Blood Pressure Systolic (8480-6) 122 mm[Hg] Blood Pressure Diastolic (8462-4) 68 mm[Hg] 05/13/2024 11:26 AM Body Weight (28503-6) 163.2 [lb_av ] Body Mass Index (04202-6) 28.91 kg/m2 05/13/2024 08:15 AM Heart Rate (8867-4) 74 /min Blood Pressure Systolic (8480-6) 118 mm[Hg] Blood Pressure Diastolic (8462-4) 64 mm[Hg] 05/14/2024 02:15 PM Body Weight (86357-4) 165.8 [lb_av ] Body Mass Index (95942-5) 29.37 kg/m2 05/14/2024 09:10 AM Heart Rate [...] 62 mm[Hg] 05/15/2024 04:20 PM Body Weight (95803-3) 165.2 [lb_av ] Body Mass Index (00331-5) 29.26 kg/m2 05/15/2024 08:18 AM Heart Rate (8867-4) 77 /min Blood Pressure Systolic (8480-6) 145 mm[Hg] Blood Pressure Diastolic (8462-4) 64 mm[Hg] 05/16/2024 08:00 AM Body Weight (49752-5) 164.2 [lb_av ] Body Mass Index (16804-5) 29.08 kg/m2 05/16/2024 06:25 AM Heart Rate (8867-4) 73 /min Blood Pressure Systolic (8480-6) 119 mm[Hg] Blood Pressure Diastolic (8462-4) 63 mm[Hg] 05/17/2024 09:38 AM Body Weight (31206-4) 164.2 [lb_av ] Body Mass Index (70526-3) 29.08 kg/m2 05/17/2024 08:26 AM Heart Rate (8867-4) 78 /min Blood Pressure Systolic (8480-6) 140 mm[Hg] Blood Pressure Diastolic (8462-4) 71 mm[Hg] 05/16/2024 07:56 PM Heart Rate (8867-4) 73 /min Blood Pressure Systolic (8480-6) 143 mm[Hg] Blood Pressure Diastolic (8462-4) 63 mm[Hg] 05/18/2024 08:49 AM Body Weight (43439-1) 164 [lb_av] Body Mass Index (46811-9) 29.05 kg/m2 05/18/2024 06:45 AM Heart Rate (8867-4) 78 /min Blood Pressure Systolic (8480-6) 120 mm[Hg] Blood Pressure Diastolic (8462-4) 58 mm[Hg] 05/18/2024 06:42 AM Temperature (8310-5) 98.7 [degF] Oxygen Saturation (90130-8) 97 % Respiratory Rate (9279-1) 16 /min [...] 64 mm[Hg] 05/19/2024 04:56 PM Body Weight (47066-2) 163 [lb_av] Body Mass Index (00755-2) 28.87 kg/m2 05/19/2024 08:28 AM Heart Rate (8867-4) 77 /min Blood Pressure Systolic (8480-6) 142 mm[Hg] Blood Pressure Diastolic (8462-4) 69 mm[Hg] 05/20/2024 09:08 AM Body Weight (36359-1) 164.6 [lb_av ] Body Mass Index (82533-9) 29.15 kg/m2 05/20/2024 06:37 AM Heart Rate (8867-4) 78 /min Blood Pressure Systolic (8480-6) 116 mm[Hg] Blood Pressure Diastolic (8462-4) 52 mm[Hg] 05/21/2024 11:38 AM Body Weight (38942-9) 165 [lb_av] Body Mass Index (14780-3) 29.23 kg/m2 05/20/2024 07:07 PM Heart Rate [...] 66 mm[Hg] 05/22/2024 06:56 PM Body Weight (09075-6) 165.5 [lb_av ] Body Mass Index (82599-1) 29.31 kg/m2 05/22/2024 06:45 AM Heart Rate (8867-4) 71 /min Blood Pressure Systolic (8480-6) 132 mm[Hg] Blood Pressure Diastolic (8462-4) 63 mm[Hg] 05/23/2024 12:10 PM Body Weight (93500-8) 165 [lb_av] Body Mass Index (28086-7) 29.23 kg/m2 05/24/2024 07:30 AM Heart Rate (8867-4) 84 /min Blood Pressure Systolic (8480-6) 122 mm[Hg] Blood Pressure Diastolic (8462-4) 69 mm[Hg] 05/24/2024 07:29 AM Body Weight (44279-4) 164.2 [lb_av ] Body Mass Index (70261-0) 29.08 kg/m2 05/23/2024 07:20 PM Heart Rate (8867-4) 89 /min Blood Pressure Systolic (8480-6) 152 mm[Hg] Blood Pressure Diastolic (8462-4) 80 mm[Hg] 05/25/2024 09:51 AM Temperature (8310-5) 100 [degF] Oxygen Saturation (94384-2) 95 % Respiratory Rate (9279-1) 19 /min Heart Rate (8867-4) 81 /min Blood Pressure Systolic (8480-6) 129 mm[Hg] Blood Pressure Diastolic (8462-4) 61 mm[Hg] Body Weight (86072-8) 165 [lb_av] Body Mass Index (77822-9) 29.23 kg/m2 05/25/2024 06:45 AM Heart Rate [...] 83 mm[Hg] 05/26/2024 07:36 AM Body Weight (52035-2) 163.8 [lb_av ] Body Mass Index (06354-2) 29.01 kg/m2 05/26/2024 06:43 AM Heart Rate [...] 64 mm[Hg] 05/27/2024 08:52 AM Body Weight (07204-8) 165.4 [lb_av ] Body Mass Index (67539-7) 29.3 kg/m2 05/27/2024 06:17 AM Heart Rate [...] 73 mm[Hg] 05/28/2024 06:18 PM Body Weight (24879-4) 165.6 [lb_av ] Body Mass Index (54766-2) 29.33 kg/m2 05/29/2024 07:23 PM Heart Rate (8867-4) 71 /min Blood Pressure Systolic (8480-6) 125 mm[Hg] Blood Pressure Diastolic (8462-4) 77 mm[Hg] 05/29/2024 05:42 PM Body Weight (74510-4) 164.2 [lb_av ] Body Mass Index (23965-6) 29.08 kg/m2 05/29/2024 07:30 AM Heart Rate (8867-4) 81 /min Blood Pressure Systolic (8480-6) 117 mm[Hg] Blood Pressure Diastolic (8462-4) 74 mm[Hg] 05/30/2024 04:42 PM Body Weight (71266-9) 166.4 [lb_av ] Body Mass Index (27465-7) 29.47 kg/m2 05/30/2024 06:05 PM Heart Rate (8867-4) 66 /min Blood Pressure Systolic (8480-6) 130 mm[Hg] Blood Pressure Diastolic (8462-4) 80 mm[Hg] 05/30/2024 06:51 AM Heart Rate (8867-4) 78 /min Blood Pressure Systolic (8480-6) 118 mm[Hg] Blood Pressure Diastolic (8462-4) 53 mm[Hg] 05/31/2024 08:20 AM Body Weight (22524-1) 164.2 [lb_av ] Body Mass Index (03326-0) 29.08 kg/m2 05/31/2024 06:20 AM Heart Rate (8867-4) 79 /min Blood Pressure Systolic (8480-6) 128 mm[Hg] Blood Pressure Diastolic (8462-4) 56 mm[Hg] 05/31/2024 06:44 PM Heart Rate (8867-4) 77 /min Blood Pressure Systolic (8480-6) 122 mm[Hg] Blood Pressure Diastolic (8462-4) 28 mm[Hg] 06/01/2024 09:17 AM Temperature (8310-5) 98.9 [degF] Oxygen Saturation (39019-5) 97 % Respiratory Rate (9279-1) 16 /min Heart Rate (8867-4) 76 /min Blood Pressure Systolic (8480-6) 132 mm[Hg] Blood Pressure Diastolic (8462-4) 69 mm[Hg] 06/01/2024 12:18 PM Body Weight (21765-8) 164 [lb_av] Body Mass Index (99710-2) 29.05 kg/m2 06/01/2024 09:16 AM Heart Rate (8867-4) 76 /min Blood Pressure Systolic (8480-6) 132 mm[Hg] Blood Pressure Diastolic (8462-4) 69 mm[Hg] 06/02/2024 02:03 PM Body Weight (92848-6) 164.9 [lb_av ] Body Mass Index (20509-7) 29.21 kg/m2 06/02/2024 06:27 AM Heart Rate [...] 68 mm[Hg] 06/03/2024 04:09 PM Body Weight (23165-7) 165 [lb_av] Body Mass Index (42452-7) 29.23 kg/m2 06/03/2024 07:46 AM Heart Rate (8867-4) 78 /min Blood Pressure Systolic (8480-6) 131 mm[Hg] Blood Pressure Diastolic (8462-4) 67 mm[Hg] 06/04/2024 09:54 AM Body Weight (00281-6) 165.2 [lb_av ] Body Mass Index (55428-5) 29.26 kg/m2 06/04/2024 08:26 AM Heart Rate [...] 93 mm[Hg] 06/05/2024 04:17 PM Body Weight (92620-9) 167.4 [lb_av ] Body Mass Index (88911-9) 29.65 kg/m2 06/05/2024 07:25 PM Heart Rate (8867-4) 79 /min Blood Pressure Systolic (8480-6) 128 mm[Hg] Blood Pressure Diastolic (8462-4) 77 mm[Hg] 06/06/2024 06:35 PM Heart Rate (8867-4) 80 /min Blood Pressure Systolic (8480-6) 144 mm[Hg] Blood Pressure Diastolic (8462-4) 78 mm[Hg] 06/06/2024 09:53 AM Body Weight (32884-1) 168.5 [lb_av ] Body Mass Index (93037-9) 29.85 kg/m2 06/06/2024 06:53 AM Heart Rate (8867-4) 83 /min Blood Pressure Systolic (8480-6) 117 mm[Hg] Blood Pressure Diastolic (8462-4) 58 mm[Hg] 06/07/2024 09:12 AM Body Weight (87518-5) 165.4 [lb_av ] Body Mass Index (43913-2) 29.3 kg/m2 06/07/2024 06:36 AM Heart Rate (8867-4) 75 /min Blood Pressure Systolic (8480-6) 115 mm[Hg] Blood Pressure Diastolic (8462-4) 54 mm[Hg] 06/08/2024 01:27 PM Body Weight (70675-8) 166.8 [lb_av ] Body Mass Index (16345-1) 29.54 kg/m2 06/08/2024 09:41 AM Temperature (8310-5) 98.2 [degF] Oxygen Saturation (64947-4) 97 % Respiratory Rate (9279-1) 18 /min [...] 69 mm[Hg] 06/09/2024 01:00 PM Body Weight (69624-7) 166.4 [lb_av ] Body Mass Index (10705-0) 29.47 kg/m2 06/09/2024 09:25 AM Heart Rate [...] 58 mm[Hg] 06/10/2024 08:20 AM Body Weight (51298-6) 167.4 [lb_av ] Body Mass Index (03701-9) 29.65 kg/m2 06/10/2024 06:55 AM Heart Rate [...] 63 mm[Hg] 06/11/2024 11:55 AM Body Weight (01915-5) 166.6 [lb_av ] Body Mass Index (89761-3) 29.51 kg/m2 06/11/2024 07:09 AM Heart Rate [...] 63 mm[Hg] 06/12/2024 02:58 PM Body Weight (98993-7) 167.1 [lb_av ] Body Mass Index (54528-7) 29.6 kg/m2 06/13/2024 07:10 PM Heart Rate (8867-4) 73 /min Blood Pressure Systolic (8480-6) 152 mm[Hg] Blood Pressure Diastolic (8462-4) 73 mm[Hg] 06/13/2024 04:50 PM Body Weight (07492-9) 167 [lb_av] Body Mass Index (27770-6) 29.58 kg/m2 06/13/2024 08:25 AM Body Weight (24897-8) 167 [lb_av] Body Mass Index (62001-6) 29.58 kg/m2 06/13/2024 07:25 AM Heart Rate (8867-4) 75 /min Blood Pressure Systolic (8480-6) 118 mm[Hg] Blood Pressure Diastolic (8462-4) 59 mm[Hg] 06/14/2024 03:23 PM Body Weight (68875-6) 167.2 [lb_av ] Body Mass Index (21373-4) 29.61 kg/m2 06/14/2024 08:42 AM Heart Rate (8867-4) 77 /min Blood Pressure Systolic (8480-6) 136 mm[Hg] Blood Pressure Diastolic (8462-4) 67 mm[Hg] 06/15/2024 09:53 AM Body Weight (06012-2) 167.8 [lb_av ] Body Mass Index (14116-6) 29.72 kg/m2 06/15/2024 09:51 AM Temperature (8310-5) 98.4 [degF] Oxygen Saturation (09383-7) 93 % Respiratory Rate (9279-1) 17 /min Heart Rate (8867-4) 94 /min 06/15/2024 09:50 AM Heart Rate (8867-4) 94 /min Blood Pressure Systolic (8480-6) 120 mm[Hg] Blood Pressure Diastolic (8462-4) 64 mm[Hg] 06/15/2024 08:12 AM Body Weight (96690-3) 167.8 [lb_av ] Body Mass Index (53386-8) 29.72 kg/m2 06/14/2024 07:00 PM Heart Rate (8867-4) 79 /min Blood Pressure Systolic (8480-6) 162 mm[Hg] Blood Pressure Diastolic (8462-4) 75 mm[Hg] 06/16/2024 09:07 AM Body Weight (77760-0) 167.9 [lb_av ] Body Mass Index (87162-6) 29.74 kg/m2 06/16/2024 08:35 AM Heart Rate (8867-4) 85 /min Blood Pressure Systolic (8480-6) 138 mm[Hg] Blood Pressure Diastolic (8462-4) 76 mm[Hg] 06/15/2024 06:46 PM Heart Rate (8867-4) 80 /min Blood Pressure Systolic (8480-6) 163 mm[Hg] Blood Pressure Diastolic (8462-4) 74 mm[Hg] 06/17/2024 09:36 AM Body Weight (31774-9) 168 [lb_av] Body Mass Index (27718-5) 29.76 kg/m2 06/17/2024 08:16 AM Heart Rate [...] Pressure Diastolic (8462-4) 61 mm[Hg] Body Weight (77055-3) 168.8 [lb_av] Body Mass Index (90071-6) 29.9 kg/m2 06/18/2024 07:15 AM Heart Rate [...] 63 mm[Hg] 06/19/2024 09:43 AM Body Weight (42464-2) 167.8 [lb_av ] Body Mass Index (13536-6) 29.72 kg/m2 06/20/2024 05:38 PM Body Weight (27598-3) 167.4 [lb_av ] Body Mass Index (67894-1) 29.65 kg/m2 06/20/2024 06:54 AM Heart Rate (8867-4) 79 /min Blood Pressure Systolic (8480-6) 121 mm[Hg] Blood Pressure Diastolic (8462-4) 55 mm[Hg] 06/21/2024 09:19 AM Body Weight (89691-3) 167.8 [lb_av ] Body Mass Index (87350-3) 29.72 kg/m2 06/21/2024 06:43 PM Heart Rate [...] 58 mm[Hg] 06/23/2024 04:15 PM Body Weight (93124-9) 170 [lb_av] Body Mass Index (64287-9) 30.11 kg/m2 06/23/2024 11:58 AM Heart Rate (8867-4) 87 /min Blood Pressure Systolic (8480-6) 127 mm[Hg] Blood Pressure Diastolic (8462-4) 61 mm[Hg] 06/22/2024 06:49 PM Temperature (8310-5) 97.1 [degF] Oxygen Saturation (22724-3) 96 % Respiratory Rate (9279-1) 16 /min Heart Rate (8867-4) 81 /min Blood Pressure Systolic (8480-6) 109 mm[Hg] Blood Pressure Diastolic (8462-4) 58 mm[Hg] 06/22/2024 06:48 PM Body Weight (84586-9) 170.4 [lb_av ] Body Mass Index (88122-5) 30.18 kg/m2 06/22/2024 06:43 PM Heart Rate (8867-4) 82 /min Blood Pressure Systolic (8480-6) 114 mm[Hg] Blood Pressure Diastolic (8462-4) 69 mm[Hg] 06/24/2024 04:03 PM Body Weight (64720-4) 170.1 [lb_av ] Body Mass Index (35313-2) 30.13 kg/m2 06/24/2024 06:43 AM Heart Rate (8867-4) 76 /min Blood Pressure Systolic (8480-6) 113 mm[Hg] Blood Pressure Diastolic (8462-4) 64 mm[Hg] 06/23/2024 07:04 PM Heart Rate (8867-4) 80 /min Blood Pressure Systolic (8480-6) 130 mm[Hg] Blood Pressure Diastolic (8462-4) 66 mm[Hg] 06/25/2024 01:27 PM Body Weight (79966-0) 171.4 [lb_av ] Body Mass Index (93099-6) 30.36 kg/m2 06/25/2024 07:47 AM Heart Rate [...] 69 mm[Hg] 06/26/2024 03:44 PM Body Weight (83980-2) 171.9 [lb_av ] Body Mass Index (25893-8) 30.45 kg/m2 06/27/2024 06:22 PM Heart Rate (8867-4) 80 /min Blood Pressure Systolic (8480-6) 130 mm[Hg] Blood Pressure Diastolic (8462-4) 70 mm[Hg] 06/27/2024 11:18 AM Body Weight (14600-1) 167.2 [lb_av ] Body Mass Index (99906-7) 29.61 kg/m2 06/27/2024 07:11 AM Heart Rate (8867-4) 83 /min Blood Pressure Systolic (8480-6) 124 mm[Hg] Blood Pressure Diastolic (8462-4) 60 mm[Hg] 06/28/2024 08:38 AM Body Weight (70552-4) 167 [lb_av] Body Mass Index (89460-2) 29.58 kg/m2 06/28/2024 07:56 AM Heart Rate (8867-4) 73 /min Blood Pressure Systolic (8480-6) 112 mm[Hg] Blood Pressure Diastolic (8462-4) 51 mm[Hg] 06/29/2024 08:53 AM Temperature (8310-5) 98.3 [degF] Oxygen Saturation (72256-8) 93 % Respiratory Rate (9279-1) 16 /min Heart Rate (8867-4) 80 /min 06/29/2024 08:12 AM Heart Rate (8867-4) 80 /min Blood Pressure Systolic (8480-6) 135 mm[Hg] Blood Pressure Diastolic (8462-4) 85 mm[Hg] 06/29/2024 10:50 AM Body Weight (24191-6) 168.2 [lb_av ] Body Mass Index (70560-5) 29.79 kg/m2 06/28/2024 06:43 PM Heart Rate (8867-4) 71 /min Blood Pressure Systolic (8480-6) 163 mm[Hg] Blood Pressure Diastolic (8462-4) 70 mm[Hg] 06/29/2024 06:26 PM Heart Rate (8867-4) 76 /min Blood Pressure Systolic (8480-6) 150 mm[Hg] Blood Pressure Diastolic (8462-4) 74 mm[Hg] 06/30/2024 03:13 PM Body Weight (56628-0) 168 [lb_av] Body Mass Index (50001-1) 29.76 kg/m2 06/30/2024 06:46 AM Heart Rate (8867-4) 79 /min Blood Pressure Systolic (8480-6) 132 mm[Hg] Blood Pressure Diastolic (8462-4) 65 mm[Hg] 07/01/2024 12:35 PM Body Weight (73132-2) 172.4 [lb_av ] Body Mass Index (88868-2) 30.54 kg/m2 07/01/2024 08:08 AM Heart Rate (8867-4) 77 /min Blood Pressure Systolic (8480-6) 119 mm[Hg] Blood Pressure Diastolic (8462-4) 74 mm[Hg] 06/30/2024 08:57 PM Heart Rate (8867-4) 81 /min Blood Pressure Systolic (8480-6) 127 mm[Hg] Blood Pressure Diastolic (8462-4) 69 mm[Hg] 07/02/2024 03:08 PM Body Weight (62782-3) 170.1 [lb_av ] Body Mass Index (06108-9) 30.13 kg/m2 07/02/2024 07:50 AM Heart Rate [...] 93 mm[Hg] 07/03/2024 08:49 AM Body Weight (91483-4) 170.6 [lb_av ] Body Mass Index (24472-6) 30.22 kg/m2 07/03/2024 07:34 AM Heart Rate (8867-4) 83 /min Blood Pressure Systolic (8480-6) 104 mm[Hg] Blood Pressure Diastolic (8462-4) 65 mm[Hg] 07/04/2024 09:56 AM Body Weight (74923-6) 171 [lb_av] Body Mass Index (04185-5) 30.29 kg/m2 07/04/2024 08:45 AM Heart Rate [...] 69 mm[Hg] 07/05/2024 09:48 AM Body Weight (48730-7) 172.2 [lb_av ] Body Mass Index (79761-1) 30.5 kg/m2 07/04/2024 06:24 PM Heart Rate (8867-4) 80 /min Blood Pressure Systolic (8480-6) 138 mm[Hg] Blood Pressure Diastolic (8462-4) 74 mm[Hg] 07/06/2024 07:00 PM Heart Rate (8867-4) 80 /min Blood Pressure Systolic (8480-6) 132 mm[Hg] Blood Pressure Diastolic (8462-4) 63 mm[Hg] 07/06/2024 12:14 PM Temperature (8310-5) 97.7 [degF] Oxygen Saturation (72717-5) 98 % Respiratory Rate (9279-1) 16 /min Heart Rate (8867-4) 84 /min Blood Pressure Systolic (8480-6) 134 mm[Hg] Blood Pressure Diastolic (8462-4) 66 mm[Hg] Body Weight (51900-3) 169.2 [lb_av] Body Mass Index (55555-2) 29.97 kg/m2 07/06/2024 09:28 AM Heart Rate (8867-4) 84 /min Blood Pressure Systolic (8480-6) 134 mm[Hg] Blood Pressure Diastolic (8462-4) 64 mm[Hg] 07/07/2024 07:34 PM Heart Rate (8867-4) 74 /min Blood Pressure Systolic (8480-6) 143 mm[Hg] Blood Pressure Diastolic (8462-4) 74 mm[Hg] 07/07/2024 01:32 PM Body Weight (70160-2) 170 [lb_av] Body Mass Index (48173-3) 30.11 kg/m2 07/07/2024 07:30 AM Heart Rate [...] 70 mm[Hg] 07/08/2024 05:22 PM Body Weight (56509-7) 171 [lb_av] Body Mass Index (11167-5) 30.29 kg/m2 07/09/2024 07:13 PM Heart Rate (8867-4) 77 /min Blood Pressure Systolic (8480-6) 125 mm[Hg] Blood Pressure Diastolic (8462-4) 51 mm[Hg] 07/09/2024 03:08 PM Body Weight (30662-6) 171.1 [lb_av ] Body Mass Index (33325-9) 30.31 kg/m2 07/09/2024 09:02 AM Heart Rate [...] 66 mm[Hg] 07/10/2024 04:16 PM Body Weight (69388-3) 171 [lb_av] Body Mass Index (99227-1) 30.29 kg/m2 07/11/2024 08:25 PM Heart Rate (8867-4) 61 /min Blood Pressure Systolic (8480-6) 115 mm[Hg] Blood Pressure Diastolic (8462-4) 67 mm[Hg] 07/11/2024 10:17 AM Body Weight (16950-9) 170.8 [lb_av ] Body Mass Index (00836-3) 30.25 kg/m2 07/11/2024 08:08 AM Heart Rate (8867-4) 74 /min Blood Pressure Systolic (8480-6) 139 mm[Hg] Blood Pressure Diastolic (8462-4) 72 mm[Hg] 07/12/2024 07:15 AM Heart Rate (8867-4) 78 /min Blood Pressure Systolic (8480-6) 152 mm[Hg] Blood Pressure Diastolic (8462-4) 77 mm[Hg] 07/13/2024 12:52 PM Body Weight (08399-2) 170 [lb_av] Body Mass Index (39134-5) 30.11 kg/m2 07/13/2024 10:12 AM Temperature (8310-5) 98.6 [degF] Oxygen Saturation (27213-7) 96 % Respiratory Rate (9279-1) 20 /min [...] 66 mm[Hg] 07/12/2024 06:19 PM Body Weight (55001-6) 170.7 [lb_av ] Body Mass Index (45104-1) 30.23 kg/m2 07/14/2024 11:01 AM Body Weight (93487-4) 170.1 [lb_av ] Body Mass Index (27879-3) 30.13 kg/m2 07/14/2024 07:20 AM Heart Rate (8867-4) 75 /min Blood Pressure Systolic (8480-6) 120 mm[Hg] Blood Pressure Diastolic (8462-4) 63 mm[Hg] 07/13/2024 07:45 PM Heart Rate (8867-4) 73 /min Blood Pressure Systolic (8480-6) 155 mm[Hg] Blood Pressure Diastolic (8462-4) 76 mm[Hg] 07/15/2024 01:21 PM Body Weight (25034-6) 170.2 [lb_av ] Body Mass Index (46020-9) 30.15 kg/m2 07/15/2024 07:16 AM Heart Rate [...] 64 mm[Hg] 07/16/2024 03:41 PM Body Weight (76414-6) 170.3 [lb_av ] Body Mass Index (46783-2) 30.16 kg/m2 07/16/2024 08:58 AM Heart Rate (8867-4) 81 /min Blood Pressure Systolic (8480-6) 118 mm[Hg] Blood Pressure Diastolic (8462-4) 87 mm[Hg] 07/17/2024 10:44 AM Body Weight (58888-1) 170.2 [lb_av ] Body Mass Index (43859-7) 30.15 kg/m2 07/17/2024 07:05 AM Heart Rate [...] 80 mm[Hg] 07/18/2024 10:25 AM Body Weight (84343-1) 167.6 [lb_av ] Body Mass Index (65378-3) 29.69 kg/m2 07/18/2024 09:04 AM Heart Rate (8867-4) 80 /min Blood Pressure Systolic (8480-6) 137 mm[Hg] Blood Pressure Diastolic (8462-4) 68 mm[Hg] 07/19/2024 09:47 AM Heart Rate (8867-4) 78 /min Blood Pressure Systolic (8480-6) 110 mm[Hg] Blood Pressure Diastolic (8462-4) 57 mm[Hg] Body Weight (39299-5) 167.2 [lb_av] Body Mass Index (62001-9) 29.61 kg/m2 07/19/2024 07:31 PM Heart Rate (8867-4) 85 /min Blood Pressure Systolic (8480-6) 123 mm[Hg] Blood Pressure Diastolic (8462-4) 68 mm[Hg] 07/20/2024 07:31 PM Heart Rate (8867-4) 75 /min Blood Pressure Systolic (8480-6) 148 mm[Hg] Blood Pressure Diastolic (8462-4) 71 mm[Hg] 07/20/2024 11:07 AM Body Weight (69729-4) 167.4 [lb_av ] Body Mass Index (75334-2) 29.65 kg/m2 07/20/2024 09:01 AM Temperature (8310-5) 97.4 [degF] Oxygen Saturation (68573-7) 92 % Respiratory Rate (9279-1) 22 /min [...] 63 mm[Hg] 07/22/2024 04:18 PM Body Weight (82553-0) 170.6 [lb_av ] Body Mass Index (34671-7) 30.22 kg/m2 07/22/2024 08:38 AM Heart Rate (8867-4) 93 /min Blood Pressure Systolic (8480-6) 163 mm[Hg] Blood Pressure Diastolic (8462-4) 59 mm[Hg] 07/23/2024 01:56 PM Body Weight (05553-5) 170.4 [lb_av ] Body Mass Index (03422-7) 30.18 kg/m2 07/23/2024 08:02 AM Heart Rate [...] 73 mm[Hg] 07/24/2024 04:52 PM Body Weight (72812-0) 171 [lb_av] Body Mass Index (23902-9) 30.29 kg/m2 07/25/2024 06:40 PM Heart Rate (8867-4) 80 /min Blood Pressure Systolic (8480-6) 126 mm[Hg] Blood Pressure Diastolic (8462-4) 76 mm[Hg] 07/25/2024 12:34 PM Body Weight (12929-2) 172.4 [lb_av ] Body Mass Index (67723-1) 30.54 kg/m2 07/25/2024 08:29 AM Heart Rate (8867-4) 77 /min Blood Pressure Systolic (8480-6) 124 mm[Hg] Blood Pressure Diastolic (8462-4) 63 mm[Hg] 07/26/2024 07:01 AM Heart Rate (8867-4) 76 /min Blood Pressure Systolic (8480-6) 131 mm[Hg] Blood Pressure Diastolic (8462-4) 76 mm[Hg] 07/27/2024 10:04 AM Body Weight (92080-5) 171.4 [lb_av ] Body Mass Index (71953-3) 30.36 kg/m2 07/27/2024 09:35 AM Temperature (8310-5) 98.4 [degF] Oxygen Saturation (52389-2) 99 % Respiratory Rate (9279-1) 16 /min Heart Rate (8867-4) 80 /min Blood Pressure Systolic (8480-6) 132 mm[Hg] Blood Pressure Diastolic (8462-4) 68 mm[Hg] 07/26/2024 07:20 PM Heart Rate (8867-4) 72 /min Blood Pressure Systolic (8480-6) 142 mm[Hg] Blood Pressure Diastolic (8462-4) 69 mm[Hg] 07/26/2024 05:50 PM Body Weight (96068-3) 168.6 [lb_av ] Body Mass Index (84503-0) 29.86 kg/m2 07/28/2024 09:55 AM Body Weight (99374-9) 169.4 [lb_av ] Body Mass Index (76203-3) 30 kg/m2 07/28/2024 06:38 AM Heart Rate (8867-4) 78 /min Blood Pressure Systolic (8480-6) 117 mm[Hg] Blood Pressure Diastolic (8462-4) 52 mm[Hg] 07/27/2024 06:34 PM Heart Rate (8867-4) 74 /min Blood Pressure Systolic (8480-6) 153 mm[Hg] Blood Pressure Diastolic (8462-4) 74 mm[Hg] 07/29/2024 10:00 AM Body Weight (89889-6) 170 [lb_av] Body Mass Index (41242-6) 30.11 kg/m2 07/29/2024 09:37 AM Heart Rate [...] 47 mm[Hg] 07/30/2024 03:46 PM Body Weight (79399-1) 171.2 [lb_av ] Body Mass Index (23471-6) 30.32 kg/m2 07/30/2024 07:58 AM Heart Rate (8867-4) 78 /min Blood Pressure Systolic (8480-6) 114 mm[Hg] Blood Pressure Diastolic (8462-4) 63 mm[Hg] 07/31/2024 07:09 AM Heart Rate (8867-4) 78 /min Blood Pressure Systolic (8480-6) 136 mm[Hg] Blood Pressure Diastolic (8462-4) 53 mm[Hg] 07/31/2024 07:07 AM Body Weight (54057-9) 169.8 [lb_av ] Body Mass Index (54641-9) 30.08 kg/m2 07/31/2024 06:55 PM Heart Rate (8867-4) 73 /min Blood Pressure Systolic (8480-6) 124 mm[Hg] Blood Pressure Diastolic (8462-4) 65 mm[Hg] 08/01/2024 07:14 PM Heart Rate (8867-4) 80 /min Blood Pressure Systolic (8480-6) 138 mm[Hg] Blood Pressure Diastolic (8462-4) 80 mm[Hg] 08/01/2024 11:41 AM Body Weight (09376-8) 169.8 [lb_av ] Body Mass Index (40187-7) 30.08 kg/m2 08/01/2024 09:03 AM Heart Rate (8867-4) 82 /min Blood Pressure Systolic (8480-6) 113 mm[Hg] Blood Pressure Diastolic (8462-4) 56 mm[Hg] 08/02/2024 11:33 AM Body Weight (33671-8) 169.6 [lb_av ] Body Mass Index (41951-4) 30.04 kg/m2 08/02/2024 07:45 AM Heart Rate [...] AM Temperature (8310-5) 97.9 [degF] Oxygen Saturation (17578-0) 98 % Respiratory Rate (9279-1) 16 /min Heart Rate (8867-4) 81 /min 08/03/2024 04:44 PM Body Weight (51050-1) 171.2 [lb_av ] Body Mass Index (98686-7) 30.32 kg/m2 08/03/2024 07:45 PM Heart Rate [...] 58 mm[Hg] 08/04/2024 06:29 PM Body Weight (89803-3) 170.7 [lb_av ] Body Mass Index (19932-2) 30.23 kg/m2 08/05/2024 07:52 AM Heart Rate (8867-4) 75 /min Blood Pressure Systolic (8480-6) 103 mm[Hg] Blood Pressure Diastolic (8462-4) 46 mm[Hg] 08/06/2024 12:54 AM Heart Rate (8867-4) 79 /min Blood Pressure Systolic (8480-6) 137 mm[Hg] Blood Pressure Diastolic (8462-4) 71 mm[Hg] 08/05/2024 07:05 PM Body Weight (69747-0) 170.6 [lb_av ] Body Mass Index (87544-9) 30.22 kg/m2 08/06/2024 08:27 AM Heart Rate (8867-4) 81 /min Blood Pressure Systolic (8480-6) 108 mm[Hg] Blood Pressure Diastolic (8462-4) 59 mm[Hg] 08/06/2024 02:46 PM Body Weight (10947-2) 170.1 [lb_av ] Body Mass Index (03440-2) 30.13 kg/m2 08/06/2024 07:20 PM Heart Rate (8867-4) 77 /min Blood Pressure Systolic (8480-6) 125 mm[Hg] Blood Pressure Diastolic (8462-4) 74 mm[Hg] 08/07/2024 08:51 AM Heart Rate (8867-4) 86 /min Blood Pressure Systolic (8480-6) 141 mm[Hg] Blood Pressure Diastolic (8462-4) 78 mm[Hg] 08/07/2024 03:38 PM Body Weight (16618-3) 169.7 [lb_av ] Body Mass Index (44626-3) 30.06 kg/m2 08/07/2024 06:44 PM Heart Rate [...] 78 mm[Hg] 08/09/2024 07:25 AM Body Weight (78675-6) 169.4 [lb_av ] Body Mass Index (96350-0) 30 kg/m2 08/09/2024 06:06 AM Heart Rate (8867-4) 80 /min Blood Pressure Systolic (8480-6) 120 mm[Hg] Blood Pressure Diastolic (8462-4) 60 mm[Hg] 08/10/2024 10:10 AM Body Weight (81155-8) 172.2 [lb_av ] Body Mass Index (36129-2) 30.5 kg/m2 08/10/2024 09:04 AM Temperature (8310-5) 99.1 [degF] Oxygen Saturation (42259-1) 96 % Respiratory Rate (9279-1) 16 /min [...] 79 mm[Hg] 08/11/2024 07:45 AM Body Weight (39884-5) 171.6 [lb_av ] Body Mass Index (00529-2) 30.39 kg/m2 08/11/2024 07:33 AM Heart Rate [...] 69 mm[Hg] 08/14/2024 12:45 PM Body Weight (22193-8) 167.8 [lb_av ] Body Mass Index (99153-9) 29.72 kg/m2 08/14/2024 07:13 PM Heart Rate (8867-4) 77 /min Blood Pressure Systolic (8480-6) 133 mm[Hg] Blood Pressure Diastolic (8462-4) 52 mm[Hg] 08/15/2024 09:00 AM Heart Rate (8867-4) 82 /min Blood Pressure Systolic (8480-6) 134 mm[Hg] Blood Pressure Diastolic (8462-4) 59 mm[Hg] 08/15/2024 11:21 AM Body Weight (45599-0) 169.6 [lb_av ] Body Mass Index (21658-3) 30.04 kg/m2 08/15/2024 06:43 PM Heart Rate [...] PM Temperature (8310-5) 98.8 [degF] Oxygen Saturation (80456-3) 98 % Respiratory Rate (9279-1) 17 /min Heart Rate (8867-4) 81 /min Blood Pressure Systolic (8480-6) 134 mm[Hg] Blood Pressure Diastolic (8462-4) 69 mm[Hg] 08/17/2024 12:13 PM Body Weight (29812-5) 169.9 [lb_av ] Body Mass Index (05958-5) 30.09 kg/m2 08/17/2024 08:04 PM Heart Rate [...] 76 mm[Hg] 08/18/2024 06:41 PM Body Weight (10663-4) 168.8 [lb_av ] Body Mass Index (28179-0) 29.9 kg/m2 08/19/2024 06:42 AM Heart Rate (8867-4) 81 /min Blood Pressure Systolic (8480-6) 122 mm[Hg] Blood Pressure Diastolic (8462-4) 55 mm[Hg] 08/19/2024 03:35 PM Body Weight (98183-2) 172.8 [lb_av ] Body Mass Index (70197-8) 30.61 kg/m2 08/19/2024 09:10 PM Heart Rate (8867-4) 88 /min Blood Pressure Systolic (8480-6) 136 mm[Hg] Blood Pressure Diastolic (8462-4) 59 mm[Hg] 08/20/2024 08:37 AM Heart Rate (8867-4) 82 /min Blood Pressure Systolic (8480-6) 127 mm[Hg] Blood Pressure Diastolic (8462-4) 61 mm[Hg] 08/20/2024 11:36 AM Body Weight (67962-5) 170 [lb_av] Body Mass Index (36442-5) 30.11 kg/m2 08/20/2024 09:28 PM Heart Rate (8867-4) 81 /min Blood Pressure Systolic (8480-6) 125 mm[Hg] Blood Pressure Diastolic (8462-4) 58 mm[Hg] 08/21/2024 08:03 AM Body Weight (79148-1) 170.2 [lb_av ] Body Mass Index (01293-4) 30.15 kg/m2 08/21/2024 08:02 AM Heart Rate [...] 60 mm[Hg] 08/22/2024 11:30 AM Body Weight (87782-7) 170.4 [lb_av ] Body Mass Index (79644-8) 30.18 kg/m2 08/22/2024 06:39 PM Heart Rate (8867-4) 75 /min Blood Pressure Systolic (8480-6) 155 mm[Hg] Blood Pressure Diastolic (8462-4) 73 mm[Hg] 08/23/2024 08:10 AM Body Weight (85167-6) 169 [lb_av] Body Mass Index (43904-5) 29.93 kg/m2 08/23/2024 08:09 AM Heart Rate (8867-4) 88 /min Blood Pressure Systolic (8480-6) 127 mm[Hg] Blood Pressure Diastolic (8462-4) 70 mm[Hg] 08/23/2024 07:35 PM Heart Rate (8867-4) 77 /min Blood Pressure Systolic (8480-6) 152 mm[Hg] Blood Pressure Diastolic (8462-4) 64 mm[Hg] 08/24/2024 08:34 AM Temperature (8310-5) 96.9 [degF] Oxygen Saturation (46248-6) 95 % Respiratory Rate (9279-1) 17 /min Heart Rate (8867-4) 84 /min Blood Pressure Systolic (8480-6) 141 mm[Hg] Blood Pressure Diastolic (8462-4) 80 mm[Hg] 08/24/2024 08:27 AM Heart Rate (8867-4) 74 /min Blood Pressure Systolic (8480-6) 106 mm[Hg] Blood Pressure Diastolic (8462-4) 50 mm[Hg] 08/24/2024 12:58 PM Body Weight (43705-1) 174 [lb_av] Body Mass Index (44576-6) 30.82 kg/m2 08/24/2024 08:02 PM Heart Rate (8867-4) 74 /min Blood Pressure Systolic (8480-6) 132 mm[Hg] Blood Pressure Diastolic (8462-4) 65 mm[Hg] 08/25/2024 06:33 AM Heart Rate (8867-4) 72 /min Blood Pressure Systolic (8480-6) 125 mm[Hg] Blood Pressure Diastolic (8462-4) 60 mm[Hg] 08/25/2024 06:32 AM Body Weight (37668-0) 172.4 [lb_av ] Body Mass Index (31425-4) 30.54 kg/m2 08/25/2024 11:21 PM Heart Rate (8867-4) 77 /min Blood Pressure Systolic (8480-6) 128 mm[Hg] Blood Pressure Diastolic (8462-4) 68 mm[Hg] 08/26/2024 09:02 AM Heart Rate (8867-4) 78 /min Blood Pressure Systolic (8480-6) 122 mm[Hg] Blood Pressure Diastolic (8462-4) 60 mm[Hg] 08/26/2024 10:43 AM Body Weight (51635-2) 169.6 [lb_av ] Body Mass Index (69602-6) 30.04 kg/m2 08/26/2024 07:51 PM Heart Rate (8867-4) 70 /min Blood Pressure Systolic (8480-6) 132 mm[Hg] Blood Pressure Diastolic (8462-4) 66 mm[Hg] 08/27/2024 08:20 AM Heart Rate (8867-4) 82 /min Blood Pressure Systolic (8480-6) 122 mm[Hg] Blood Pressure Diastolic (8462-4) 57 mm[Hg] 08/27/2024 04:17 PM Body Weight (56852-0) 170.3 [lb_av ] Body Mass Index (61499-3) 30.16 kg/m2 08/27/2024 07:29 PM Heart Rate (8867-4) 76 /min Blood Pressure Systolic (8480-6) 133 mm[Hg] Blood Pressure Diastolic (8462-4) 67 mm[Hg] 08/28/2024 08:35 AM Heart Rate (8867-4) 78 /min Blood Pressure Systolic (8480-6) 127 mm[Hg] Blood Pressure Diastolic (8462-4) 61 mm[Hg] 08/28/2024 05:14 PM Body Weight (06859-1) 170.9 [lb_av ] Body Mass Index (65857-5) 30.27 kg/m2 08/28/2024 08:14 PM Heart Rate (8867-4) 71 /min Blood Pressure Systolic (8480-6) 90 mm[Hg] Blood Pressure Diastolic (8462-4) 42 mm[Hg] 08/29/2024 08:56 AM Heart Rate (8867-4) 78 /min Blood Pressure Systolic (8480-6) 124 mm[Hg] Blood Pressure Diastolic (8462-4) 56 mm[Hg] 08/29/2024 02:48 PM Body Weight (41370-0) 172.4 [lb_av ] Body Mass Index (68383-7) 30.54 kg/m2 08/29/2024 07:09 PM Heart Rate (8867-4) 80 /min Blood Pressure Systolic (8480-6) 138 mm[Hg] Blood Pressure Diastolic (8462-4) 78 mm[Hg] 08/30/2024 08:15 AM Heart Rate (8867-4) 76 /min Blood Pressure Systolic (8480-6) 128 mm[Hg] Blood Pressure Diastolic (8462-4) 72 mm[Hg] Body Weight (10363-4) 172 [lb_av] Body Mass Index (64984-4) 30.47 kg/m2 08/30/2024 07:46 PM Heart Rate (8867-4) 81 /min Blood Pressure Systolic (8480-6) 154 mm[Hg] Blood Pressure Diastolic (8462-4) 70 mm[Hg] 08/31/2024 08:48 AM Heart Rate (8867-4) 86 /min Blood Pressure Systolic (8480-6) 138 mm[Hg] Blood Pressure Diastolic (8462-4) 69 mm[Hg] 08/31/2024 05:23 PM Body Weight (44864-0) 172.8 [lb_av ] Body Mass Index (43857-7) 30.61 kg/m2 08/31/2024 05:10 PM Temperature (8310-5) 97.4 [degF] Oxygen Saturation (15478-8) 93 % Respiratory Rate (9279-1) 16 /min Heart Rate (8867-4) 86 /min 08/31/2024 07:25 PM Heart Rate (8867-4) 80 /min Blood Pressure Systolic (8480-6) 139 mm[Hg] Blood Pressure Diastolic (8462-4) 69 mm[Hg] 09/01/2024 07:56 AM Heart Rate (8867-4) 79 /min Blood Pressure Systolic (8480-6) 116 mm[Hg] Blood Pressure Diastolic (8462-4) 53 mm[Hg] 09/01/2024 01:17 PM Body Weight (58009-0) 171.8 [lb_av ] Body Mass Index (50524-8) 30.43 kg/m2 09/01/2024 08:21 PM Heart Rate (8867-4) 78 /min Blood Pressure Systolic (8480-6) 132 mm[Hg] Blood Pressure Diastolic (8462-4) 77 mm[Hg] 09/02/2024 09:31 AM Heart Rate (8867-4) 78 /min Blood Pressure Systolic (8480-6) 120 mm[Hg] Blood Pressure Diastolic (8462-4) 51 mm[Hg] 09/02/2024 02:38 PM Body Weight (56811-1) 174 [lb_av] Body Mass Index (46142-3) 30.82 kg/m2 09/02/2024 07:12 PM Heart Rate (8867-4) 72 /min Blood Pressure Systolic (8480-6) 155 mm[Hg] Blood Pressure Diastolic (8462-4) 80 mm[Hg] 09/03/2024 01:37 PM Heart Rate (8867-4) 84 /min Blood Pressure Systolic (8480-6) 142 mm[Hg] Blood Pressure Diastolic (8462-4) 74 mm[Hg] 09/03/2024 05:36 PM Body Weight (02181-2) 171.2 [lb_av ] Body Mass Index (43111-6) 30.32 kg/m2 09/03/2024 07:09 PM Heart Rate (8867-4) 73 /min Blood Pressure Systolic (8480-6) 144 mm[Hg] Blood Pressure Diastolic (8462-4) 79 mm[Hg] 09/04/2024 08:35 AM Heart Rate (8867-4) 78 /min Blood Pressure Systolic (8480-6) 104 mm[Hg] Blood Pressure Diastolic (8462-4) 60 mm[Hg] 09/04/2024 08:36 AM Body Weight (16162-6) 168.4 [lb_av ] Body Mass Index (64805-4) 29.83 kg/m2 09/04/2024 07:19 PM Heart Rate (8867-4) 71 /min Blood Pressure Systolic (8480-6) 122 mm[Hg] Blood Pressure Diastolic (8462-4) 68 mm[Hg] 09/05/2024 04:43 PM Body Weight (37892-6) 170.1 [lb_av ] Body Mass Index (46679-8) 30.13 kg/m2 09/05/2024 06:33 PM Heart Rate (8867-4) 70 /min Blood Pressure Systolic (8480-6) 138 mm[Hg] Blood Pressure Diastolic (8462-4) 74 mm[Hg] 09/06/2024 07:01 AM Heart Rate (8867-4) 88 /min Blood Pressure Systolic (8480-6) 118 mm[Hg] Blood Pressure Diastolic (8462-4) 56 mm[Hg] 09/06/2024 03:46 PM Body Weight (86609-8) 169.4 [lb_av ] Body Mass Index (85053-4) 30 kg/m2 09/07/2024 09:39 AM Temperature (8310-5) 98.6 [degF] Oxygen Saturation (22285-8) 94 % Respiratory Rate (9279-1) 16 /min Heart Rate (8867-4) 81 /min Body Weight (84491-9) 169.4 [lb_av] Body Mass Index (19931-3) 30 kg/m2 09/07/2024 09:38 AM Heart Rate (8867-4) 81 /min Blood Pressure Systolic (8480-6) 130 mm[Hg] Blood Pressure Diastolic (8462-4) 58 mm[Hg] 09/06/2024 07:02 PM Heart Rate (8867-4) 76 /min Blood Pressure Systolic (8480-6) 149 mm[Hg] Blood Pressure Diastolic (8462-4) 70 mm[Hg] 09/07/2024 08:37 PM Heart Rate (8867-4) 80 /min Blood Pressure Systolic (8480-6) 161 mm[Hg] Blood Pressure Diastolic (8462-4) 70 mm[Hg] 09/08/2024 08:28 AM Heart Rate (8867-4) 79 /min Blood Pressure Systolic (8480-6) 112 mm[Hg] Blood Pressure Diastolic (8462-4) 59 mm[Hg] 09/08/2024 04:56 PM Body Weight (10835-1) 171.6 [lb_av ] Body Mass Index (28443-5) 30.39 kg/m2 09/08/2024 07:22 PM Heart Rate (8867-4) 71 /min Blood Pressure Systolic (8480-6) 122 mm[Hg] Blood Pressure Diastolic (8462-4) 65 mm[Hg] 09/09/2024 09:00 AM Body Weight (27362-5) 169.4 [lb_av ] Body Mass Index (49470-5) 30 kg/m2 09/09/2024 08:20 AM Heart Rate [...] 68 mm[Hg] 09/10/2024 12:13 PM Body Weight (15176-7) 171.9 [lb_av ] Body Mass Index (95859-1) 30.45 kg/m2 09/10/2024 07:11 PM Heart Rate (8867-4) 77 /min Blood Pressure Systolic (8480-6) 135 mm[Hg] Blood Pressure Diastolic (8462-4) 66 mm[Hg] 09/11/2024 08:44 AM Heart Rate (8867-4) 73 /min Blood Pressure Systolic (8480-6) 156 mm[Hg] Blood Pressure Diastolic (8462-4) 67 mm[Hg] 09/11/2024 09:47 AM Body Weight (71786-2) 169.6 [lb_av ] Body Mass Index (76147-9) 30.04 kg/m2 09/11/2024 11:22 PM Heart Rate (8867-4) 77 /min Blood Pressure Systolic (8480-6) 149 mm[Hg] Blood Pressure Diastolic (8462-4) 73 mm[Hg] 09/12/2024 07:56 AM Heart Rate (8867-4) 83 /min Blood Pressure Systolic (8480-6) 130 mm[Hg] Blood Pressure Diastolic (8462-4) 56 mm[Hg] 09/12/2024 03:04 PM Body Weight (06298-8) 172.8 [lb_av ] Body Mass Index (33504-2) 30.61 kg/m2 09/12/2024 06:31 PM Heart Rate [...] 79 mm[Hg] 09/13/2024 06:27 PM Body Weight (33240-1) 171.6 [lb_av ] Body Mass Index (80041-4) 30.39 kg/m2 09/14/2024 07:58 AM Heart Rate (8867-4) 87 /min Blood Pressure Systolic (8480-6) 161 mm[Hg] Blood Pressure Diastolic (8462-4) 74 mm[Hg] 09/14/2024 11:47 AM Body Weight (63887-1) 173.6 [lb_av ] Body Mass Index (70863-0) 30.75 kg/m2 09/14/2024 11:03 AM Temperature (8310-5) 97.7 [degF] Oxygen Saturation (57984-5) 95 % Respiratory Rate (9279-1) 16 /min [...] 54 mm[Hg] 09/15/2024 01:16 PM Body Weight (92458-6) 174.8 [lb_av ] Body Mass Index (76479-3) 30.96 kg/m2 09/15/2024 08:03 PM Heart Rate (8867-4) 78 /min Blood Pressure Systolic (8480-6) 152 mm[Hg] Blood Pressure Diastolic (8462-4) 81 mm[Hg] 09/16/2024 11:31 AM Body Weight (65078-7) 173 [lb_av] Body Mass Index (18421-5) 30.64 kg/m2 09/16/2024 11:30 AM Heart Rate (8867-4) 83 /min Blood Pressure Systolic (8480-6) 186 mm[Hg] Blood Pressure Diastolic (8462-4) 62 mm[Hg] 09/16/2024 07:03 PM Heart Rate (8867-4) 80 /min Blood Pressure Systolic (8480-6) 115 mm[Hg] Blood Pressure Diastolic (8462-4) 57 mm[Hg] 09/17/2024 08:02 AM Heart Rate (8867-4) 88 /min Blood Pressure Systolic (8480-6) 145 mm[Hg] Blood Pressure Diastolic (8462-4) 73 mm[Hg] 09/17/2024 03:54 PM Body Weight (99407-3) 173.2 [lb_av ] Body Mass Index (34612-1) 30.68 kg/m2 09/18/2024 08:08 AM Body Weight (11688-7) 170 [lb_av] Body Mass Index (57613-2) 30.11 kg/m2 09/18/2024 08:07 AM Heart Rate [...] 70 mm[Hg] 09/19/2024 11:54 AM Body Weight (40598-3) 171.2 [lb_av ] Body Mass Index (34116-3) 30.32 kg/m2 09/19/2024 06:27 PM Heart Rate (8867-4) 80 /min Blood Pressure Systolic (8480-6) 130 mm[Hg] Blood Pressure Diastolic (8462-4) 80 mm[Hg] 09/20/2024 02:56 PM Body Weight (23660-9) 170.2 [lb_av ] Body Mass Index (71148-7) 30.15 kg/m2 09/20/2024 10:11 AM Heart Rate [...] 65 /min 09/21/2024 09:38 AM Body Weight (95238-5) 169 [lb_av] Body Mass Index (89711-7) 29.93 kg/m2 09/21/2024 07:06 PM Heart Rate (8867-4) 81 /min Blood Pressure Systolic (8480-6) 153 mm[Hg] Blood Pressure Diastolic (8462-4) 73 mm[Hg] 09/22/2024 07:52 AM Heart Rate (8867-4) 69 /min Blood Pressure Systolic (8480-6) 121 mm[Hg] Blood Pressure Diastolic (8462-4) 68 mm[Hg] 09/22/2024 05:34 PM Body Weight (74040-5) 171.4 [lb_av ] Body Mass Index (85836-7) 30.36 kg/m2 09/22/2024 06:32 PM Heart Rate (8867-4) 80 /min Blood Pressure Systolic (8480-6) 150 mm[Hg] Blood Pressure Diastolic (8462-4) 76 mm[Hg] 09/23/2024 06:39 AM Heart Rate (8867-4) 68 /min Blood Pressure Systolic (8480-6) 115 mm[Hg] Blood Pressure Diastolic (8462-4) 58 mm[Hg] 09/23/2024 10:40 AM Body Weight (30679-8) 171 [lb_av] Body Mass Index (99746-0) 30.29 kg/m2 09/23/2024 10:20 PM Heart Rate (8867-4) 65 /min Blood Pressure Systolic (8480-6) 132 mm[Hg] Blood Pressure Diastolic (8462-4) 65 mm[Hg] 09/24/2024 09:28 AM Heart Rate (8867-4) 84 /min Blood Pressure Systolic (8480-6) 127 mm[Hg] Blood Pressure Diastolic (8462-4) 69 mm[Hg] 09/24/2024 03:06 PM Body Weight (33867-3) 171.3 [lb_av ] Body Mass Index (42474-1) 30.34 kg/m2 09/24/2024 11:01 PM Heart Rate (8867-4) 67 /min Blood Pressure Systolic (8480-6) 124 mm[Hg] Blood Pressure Diastolic (8462-4) 82 mm[Hg] 09/25/2024 07:06 AM Heart Rate (8867-4) 77 /min Blood Pressure Systolic (8480-6) 11 mm[Hg] Blood Pressure Diastolic (8462-4) 55 mm[Hg] 09/25/2024 08:32 AM Body Weight (76255-5) 169.4 [lb_av ] Body Mass Index (27132-5) 30 kg/m2 09/25/2024 10:09 PM Heart Rate (8867-4) 68 /min Blood Pressure Systolic (8480-6) 115 mm[Hg] Blood Pressure Diastolic (8462-4) 76 mm[Hg] 09/26/2024 09:20 AM Heart Rate (8867-4) 86 /min Blood Pressure Systolic (8480-6) 102 mm[Hg] Blood Pressure Diastolic (8462-4) 60 mm[Hg] 09/26/2024 05:29 PM Body Weight (65466-2) 173.4 [lb_av ] Body Mass Index (84277-9) 30.71 kg/m2 Social History No smoking Hx information available Encounters Type CPT Code Date Location Provider Indication s encounter report 09/19/2014 11:15 AM VIKAS WRAY MD Advance Directives Directive Description Verification Date Supporting Document(s) Other Directive
--- OUTSIDE RECORDS SUMMARY | 2024-11-30 07:03 | XMS_ITS | Clinical Summary ---
Author Organization [facility] Address [address] [place] [address] Phone Care Team Providers Care Gantry Rigger Name Role Phone Unavailable Primary Care Provider [...] 2002 OSTEOPOROSIS SCREENING 2017 INFLUENZA VACCINE (#1) 2024 RSV VACCINE (60+ or ) (1 - 1-dose 75+ series) 2027 Insurance [employer] [id number] HMO
--- OUTSIDE RECORDS SUMMARY | 2024-11-30 07:03 | XMS_ITS | Encounter Summary ---
Author Organization [facility] Address [address] [place] [address] Care Team Providers Care Mines Safety Engineer Name Role Phone Unavailable Primary Care Provider Unavailabl e Encounter Details Date Type Department Care Team (Late st Contact Info) Description 12/07/2019 Lab Requisition [facility] Laboratory Services [address] [place] [address] [place] [address] Bernabe Cuellar, [address] [facility] [address] [place] [id number] Social History Tobacco Use Types Packs/Day Years [...] - 150.0 ng/mL 12/07/2019 2:50 PM CDT [facility] Blood Collection / Unknown 12/07/2019 8:48 AM CDT 12/07/2019 2:26 PM CDT Narrative [facility] - 12/07/2019 2:50 PM CDT Premenopausal Range 10-150 ng/mL Postmenopausal Range 10-291 ng/mL Bernabe Cuellar DO CHEMISTRY ORDERABLES Final Result Performing Organization Address City/[facility]/ZIP Co de Phone Number [address] [address] * (ABNORMAL) IRON, TIBC, AND PERCENT SATURATION (12/07/2019 8:48 AM CDT) IRON 79 37 - 145 ug/dL 12/07/2019 2:50 PM CDT [facility] TIBC 238(L) 250 - 450 ug/dL 12/07/2019 2:50 PM CDT [facility] IRON % SATURATION 33 15 - 60 % 12/07/2019 2:50 PM CDT [facility] Blood Collection / Unknown 12/07/2019 8:48 AM CDT 12/07/2019 2:26 PM CDT Bernabe Cuellar DO CHEMISTRY ORDERABLES Final Result Performing Organization Address [facility]/ZIP Co de Phone Number [address] [address] * TSH (12/07/2019 8:48 AM CDT) TSH 1.38 0.27 - 4.20 uIU/mL 12/07/2019 2:50 PM CDT [facility] Blood Collection / Unknown 12/07/2019 8:48 AM CDT 12/07/2019 2:26 PM CDT Bernabe Cuellar DO CHEMISTRY ORDERABLES Final Result [facility] [address] [place] [address] * (ABNORMAL) BASIC METABOLIC PANEL (12/07/2019 8:48 AM CDT) SODIUM 144 136 - 145 mmol/L 12/07/2019 2:50 PM CDT [facility] POTASSIUM 4.5 3.5 - 5.1 mmol/L 12/07/2019 2:50 PM CDT [facility] CHLORIDE 109(H) 98 - 107 mmol/L 12/07/2019 2:50 PM CDT [facility] CO2 22 22 - 29 mmol/L 12/07/2019 2:50 PM CDT [facility] CALCIUM 10.1 8.8 - 10.2 mg/dL 12/07/2019 2:50 PM CDT [facility] BUN 38(H) 8 - 23 mg/dL 12/07/2019 2:50 PM CDT [facility] CREATININE 1.43(H) 0.51 - 0.95 mg/dL 12/07/2019 2:50 PM CDT [facility] GLUCOSE 117(H) 74 - 99 mg/dL 12/07/2019 2:50 PM CDT [facility] GFR 37(L) >=60 mL/min/1. 73 sq meter 12/07/2019 2:50 PM CDT [facility] Comment: eGFR has not been validated [...] 73 sq meter 12/07/2019 2:50 PM CDT [facility] ANION GAP 13 9 - 20 mmol/L 12/07/2019 2:50 PM CDT [facility] Blood Collection / Unknown 12/07/2019 8:48 AM CDT 12/07/2019 2:26 PM CDT Bernabe Cuellar DO CHEMISTRY ORDERABLES Final Result [facility] [address] [place] [address] * (ABNORMAL) CBC WITH DIFFERENTIAL (12/07/2019 8:48 AM CDT) Pathologist [facility] WBC 9.0 4.8 - 10.8 K/uL 12/07/2019 2:27 PM CDT [facility] RBC 4.36 4.20 - 5.40 M/uL 12/07/2019 2:27 PM CDT [facility] HEMOGLOBIN 13.0 12.0 - 16.0 g/dL 12/07/2019 2:27 PM CDT [facility] HEMATOCRIT 40.8 36.0 - 46.0 % 12/07/2019 2:27 PM CDT [facility] MCV 93.6 84.0 - 103.0 fL 12/07/2019 2:27 PM CDT [facility] MCH 29.8 27.0 - 34.0 pg 12/07/2019 2:27 PM CDT [facility] MCHC 31.9 30.0 - 35.0 g/dL 12/07/2019 2:27 PM CDT [facility] RDW 13.3 11.0 - 14.5 % 12/07/2019 2:27 PM CDT [facility] RDW-STDEV 45.2 37.0 - 54.0 fL 12/07/2019 2:27 PM CDT [facility] PLATELETS 256 140 - 440 K/uL 12/07/2019 2:27 PM CDT [facility] MPV 10.4 8.9 - 12.8 fL 12/07/2019 2:27 PM CDT [facility] NEUTROPHILS 69 42 - 75 % 12/07/2019 2:27 PM CDT [facility] LYMPHOCYTES 19(L) 24 - 44 % 12/07/2019 2:27 PM CDT [facility] MONOCYTES 8 2 - 10 % 12/07/2019 2:27 PM CDT [facility] EOSINOPHILS 2 0 - 7 % 12/07/2019 2:27 PM CDT [facility] BASOPHILS 1 0 - 1 % 12/07/2019 2:27 PM CDT [facility] IMMATURE GRANULOCYTES 1 0 - 2 % 12/07/2019 2:27 PM CDT [facility] NEUTROPHIL ABSOLUTE 6.21 2.00 - 8.00 K/uL 12/07/2019 2:27 PM CDT [facility] LYMPHOCYTE ABSOLUTE 1.74 1.20 - 4.00 K/uL 12/07/2019 2:27 PM CDT [facility] MONOCYTE ABSOLUTE 0.73(H) 0.10 - 0.60 K/uL 12/07/2019 2:27 PM CDT [facility] EOSINOPHIL ABSOLUTE 0.19 0.00 - 0.70 K/uL 12/07/2019 2:27 PM CDT [facility] BASOPHILS ABSOLUTE 0.07 0.00 - 0.20 K/uL 12/07/2019 2:27 PM CDT [facility] IMMATURE GRANULOCYTES ABSOLUTE 0.05 0.00 - 0.10 K/uL 12/07/2019 2:27 PM CDT [facility] Blood Collection / Unknown 12/07/2019 8:48 AM CDT 12/07/2019 2:24 PM CDT us Bernabe Cuellar DO HEMATOLOGY ORDERABLES Final Result [facility] [address] [place] [address] documented in this encounter Visit Diagnoses Not on filedocumented in this encounter
== END 2024-11-22 14:02 | disposition skilled nursing facility (03) ==
LOC: ER 14:23 → MEDSURG 16:45
PROVIDERS: Internal Medicine; Admitting Provider Student in an Organized Health Care Education/Training Program; Emergency Provider Emergency Medicine; PCP Physician Assistant; Visit Provider Internal Medicine
DX: S00.83XA Contusion of other part of head, initial encounter (principal); W19.XXXA Unspecified fall, initial encounter; N30.00 Acute cystitis without hematuria; D64.9 Anemia, unspecified; Z83.2 Family history of diseases of the blood and blood-forming organs and certain disorders involving the immune mechanism; Z79.82 Long term (current) use of aspirin; K21.9 Gastro-esophageal reflux disease without esophagitis; B96.20 Unspecified Escherichia coli [E. coli] as the cause of diseases classified elsewhere; I69.351 Hemiplegia and hemiparesis following cerebral infarction affecting right dominant side; Z87.891 Personal history of nicotine dependence
CPT/HCPCS: 36415; 36416; 36430; 51702; 71045; 74176; 78014; 80053; 80061; 81001; 81241; 82607; 82746; 82962; 83036; 83540; 83550; 83605; 83615; 83735; 84100; 84145; 84443; 85018; 85025; 85045; 85378; 85610; 85613; 85730; 86225; 86235; 86850; 86900; 86920; 87040; 87077; 87086; 87186; 93306; 93970; 94664; 96372; 96374; 97161; 97530; 99285; A9540; A9567; G0378; J0696; J1756; J1815; J1938; J2470; J9999; P9016

== ENCOUNTER 2024-12-02 14:42 | Emergency (ER) | payer MEDICARE, MEDICAID, SELFPAY ==
--- OUTSIDE RECORDS SUMMARY | 2024-12-02 14:47 | XMS_ITS | Encounter Summary ---
Author Organization [facility] Address [address] [place] [address] Care Team Providers Care Installer Technician Name Role Phone Unavailable Primary Care Provider Unavailabl e Encounter Details Date Type Department Care Team (Late st Contact Info) Description 12/07/2019 Lab Requisition [facility] Laboratory Services [address] [place] [address] [place] [address] Bernabe Cuellar, [address] [facility] [address] [place] [phone] Social History Tobacco Use Types Packs/Day Years [...] - 150.0 ng/mL 12/07/2019 2:50 PM CDT [facility] Blood Collection / Unknown 12/07/2019 8:48 AM CDT 12/07/2019 2:26 PM CDT Narrative [facility] - 12/07/2019 2:50 PM CDT Premenopausal Range 10-150 ng/mL Postmenopausal Range 10-291 ng/mL Bernabe Cuellar DO CHEMISTRY ORDERABLES Final Result Performing Organization Address City/[facility]/ZIP Co de Phone Number [address] [address] * (ABNORMAL) IRON, TIBC, AND PERCENT SATURATION (12/07/2019 8:48 AM CDT) IRON 79 37 - 145 ug/dL 12/07/2019 2:50 PM CDT [facility] TIBC 238(L) 250 - 450 ug/dL 12/07/2019 2:50 PM CDT [facility] IRON % SATURATION 33 15 - 60 % 12/07/2019 2:50 PM CDT [facility] Blood Collection / Unknown 12/07/2019 8:48 AM CDT 12/07/2019 2:26 PM CDT Bernabe Cuellar DO CHEMISTRY ORDERABLES Final Result Performing Organization Address [facility]/ZIP Co de Phone Number [address] [address] * TSH (12/07/2019 8:48 AM CDT) TSH 1.38 0.27 - 4.20 uIU/mL 12/07/2019 2:50 PM CDT [facility] Blood Collection / Unknown 12/07/2019 8:48 AM CDT 12/07/2019 2:26 PM CDT Bernabe Cuellar DO CHEMISTRY ORDERABLES Final Result [facility] [address] [place] [address] * (ABNORMAL) BASIC METABOLIC PANEL (12/07/2019 8:48 AM CDT) SODIUM 144 136 - 145 mmol/L 12/07/2019 2:50 PM CDT [facility] POTASSIUM 4.5 3.5 - 5.1 mmol/L 12/07/2019 2:50 PM CDT [facility] CHLORIDE 109(H) 98 - 107 mmol/L 12/07/2019 2:50 PM CDT [facility] CO2 22 22 - 29 mmol/L 12/07/2019 2:50 PM CDT [facility] CALCIUM 10.1 8.8 - 10.2 mg/dL 12/07/2019 2:50 PM CDT [facility] BUN 38(H) 8 - 23 mg/dL 12/07/2019 2:50 PM CDT [facility] CREATININE 1.43(H) 0.51 - 0.95 mg/dL 12/07/2019 2:50 PM CDT [facility] GLUCOSE 117(H) 74 - 99 mg/dL 12/07/2019 2:50 PM CDT [facility] GFR 37(L) >=60 mL/min/1. 73 sq meter 12/07/2019 2:50 PM CDT [facility] Comment: eGFR has not been validated for [...] 73 sq meter 12/07/2019 2:50 PM CDT [facility] ANION GAP 13 9 - 20 mmol/L 12/07/2019 2:50 PM CDT [facility] Blood Collection / Unknown 12/07/2019 8:48 AM CDT 12/07/2019 2:26 PM CDT Bernabe Cuellar DO CHEMISTRY ORDERABLES Final Result [facility] [address] [place] [address] * (ABNORMAL) CBC WITH DIFFERENTIAL (12/07/2019 8:48 AM CDT) Pathologist [facility] WBC 9.0 4.8 - 10.8 K/uL 12/07/2019 2:27 PM CDT [facility] RBC 4.36 4.20 - 5.40 M/uL 12/07/2019 2:27 PM CDT [facility] HEMOGLOBIN 13.0 12.0 - 16.0 g/dL 12/07/2019 2:27 PM CDT [facility] HEMATOCRIT 40.8 36.0 - 46.0 % 12/07/2019 2:27 PM CDT [facility] MCV 93.6 84.0 - 103.0 fL 12/07/2019 2:27 PM CDT [facility] MCH 29.8 27.0 - 34.0 pg 12/07/2019 2:27 PM CDT [facility] MCHC 31.9 30.0 - 35.0 g/dL 12/07/2019 2:27 PM CDT [facility] RDW 13.3 11.0 - 14.5 % 12/07/2019 2:27 PM CDT [facility] RDW-STDEV 45.2 37.0 - 54.0 fL 12/07/2019 2:27 PM CDT [facility] PLATELETS 256 140 - 440 K/uL 12/07/2019 2:27 PM CDT [facility] MPV 10.4 8.9 - 12.8 fL 12/07/2019 2:27 PM CDT [facility] NEUTROPHILS 69 42 - 75 % 12/07/2019 2:27 PM CDT [facility] LYMPHOCYTES 19(L) 24 - 44 % 12/07/2019 2:27 PM CDT [facility] MONOCYTES 8 2 - 10 % 12/07/2019 2:27 PM CDT [facility] EOSINOPHILS 2 0 - 7 % 12/07/2019 2:27 PM CDT [facility] BASOPHILS 1 0 - 1 % 12/07/2019 2:27 PM CDT [facility] IMMATURE GRANULOCYTES 1 0 - 2 % 12/07/2019 2:27 PM CDT [facility] NEUTROPHIL ABSOLUTE 6.21 2.00 - 8.00 K/uL 12/07/2019 2:27 PM CDT [facility] LYMPHOCYTE ABSOLUTE 1.74 1.20 - 4.00 K/uL 12/07/2019 2:27 PM CDT [facility] MONOCYTE ABSOLUTE 0.73(H) 0.10 - 0.60 K/uL 12/07/2019 2:27 PM CDT [facility] EOSINOPHIL ABSOLUTE 0.19 0.00 - 0.70 K/uL 12/07/2019 2:27 PM CDT [facility] BASOPHILS ABSOLUTE 0.07 0.00 - 0.20 K/uL 12/07/2019 2:27 PM CDT [facility] IMMATURE GRANULOCYTES ABSOLUTE 0.05 0.00 - 0.10 K/uL 12/07/2019 2:27 PM CDT [facility] Blood Collection / Unknown 12/07/2019 8:48 AM CDT 12/07/2019 2:24 PM CDT us Bernabe Cuellar DO HEMATOLOGY ORDERABLES Final Result [facility] [address] [place] [address] documented in this encounter Visit Diagnoses Not on filedocumented in this encounter
--- OUTSIDE RECORDS SUMMARY | 2024-12-02 14:47 | XMS_ITS | Clinical Summary ---
Author Organization [facility] Address [address] [place] [address] Phone Care Team Providers Care Garbage Truck Dispatcher Name Role Phone Unavailable Primary Care Provider [...] (1 - 1-dose 75+ series) 2027 Insurance [employer] [id number] HMO
[2024-12-02 14:50] VITALS: BP 137/52; PULSE 90; RESP 18; TEMP 36.9; O2SAT 92
--- NOTE | 2024-12-02 14:54 | ED_ITS ---
HPI - Chest Pain 2 General: Chief Complaint: Chest Pain Stated Complaint: chest pain Time Seen by Provider: 12/02/24 14:46 History of Present Illness: 74-year-old female presents emergency ro om with complaint of right shoulder pain that she was seen here a few days ago on 25 November at that time she had x-ray done after a fall x-ray was reported as negative. (This history per family member with the patient however there is no x-ray on file for November 25 of this year.) She has a history of previous stroke and has significant right-sided deficits in the arm and the leg. Notable contractures in the hand and upper arm. Associated symptoms: Deny abdominal pain, dyspnea or fever(s) Related Data Home Medications ?Medication ?Instructions ?Recorded ?Confirmed vitamins A,C,B-[id number] 4,296 1 cap PO BID 07/08/23 12/07/24 mcg-226 mg-90 mg capsule (PreserVision AREDS) acetaminophen 325 mg tablet 650 mg PO QID PRN Fever Or Pain 11/20/24 11/20/24 (Tylenol) aspirin 81 mg tablet,delayed 81 mg PO DAILY 11/20/24 0 11/20/24 release (Slava Low Dose Aspirin) atorvastatin 40 mg tablet 40 mg PO DAILY 11/20/2411/22 baclofen 5 mg tablet 5 mg PO TID PRN JOINT PAIN 0 11/20/24 12/07/24 carvedilol 6.25 mg tablet 6.25 mg PO BID 11/20/2411/22 escitalopram oxalate 5 mg tablet 5 mg PO DAILY anxiety 11/20/24 12/07/24 fluticasone propionate 50 1 spray intranasal DAILY PRN 11/20/24 12/07/24 mcg/actuation nasal Allergy Symptoms spray,suspension loperamide 2 mg tablet (Imodium 2 mg PO DAILY 11/20/24 12/07/24 A-D) menthol 4 % topical gel (Biofreeze 1 applic topical BI D PRN Pain 11/20/24 12/07/24 (menthol)) omeprazole 20 mg capsule,delayed 20 mg PO DAILY 12/07/24 release peg 400-propylene glycol 0.4 %-0.3 1 drp ophthalmic (e ye) TID 11/20/24 12/07/24 % eye drops (Systane (propylene glycol)) potassium chloride 20 mEq 20 meq PO DAILY take with La six 11/20/24 12/07/24 tablet,extended release(part/cryst) RSV vac, preF A and preF B(PF) 120 ml IM 12/07/2411/22 mcg/0.5 mL IM solution (Abrysvo (PF)) acyclovir 800 mg tablet 800 mg PO .COMPLEX 12/07/24 12/07/24 bisacodyl 10 mg rectal suppository 10 mg SD DAILY PRN 12/07/24 12/07/24 (Dulcolax (bisacodyl)) flu vac [id number] 36mos up(PF) 60 ml IM 12/07/2412/07 mcg (15 mcg x4)/0.5 mL IM syringe tirzepatide 2.5 mg/0.5 mL mg SUBCUT 12/07/24 12/07/24 subcutaneous pen injector (Ambreen) Previous Rx's ?Medication ?Instructions ?Recorded ferrous sulfate 325 mg (65 mg 325 mg PO EVERY OTHER DA Y #90 tabs 11/22/24 iron) tablet furosemide 40 mg tablet (Lasix) 40 mg PO DAILY PRN Luis M ma #1 tab 11/22/24 tramadol 25 mg tablet 25 mg PO QID PRN pain #15 ta bs 12/02/24 polyethylene glycol 3350 17 17 g PO ONCE 5 days #85 gr ams 12/07/24 gram/dose oral powder (Miralax) Allergies Allergy/AdvReac Type Severity Reaction Status Date / Time No Known Allergies Allergy Verified 07/08/23 13:10 Review of Systems 2 Const: Denies: fever(s) or chills Card: Denies: chest pain Resp: Denies: dyspnea GI: Denies: abdominal pain : Denies: dysuria, urinary frequency or urinary urgency Musc: Denies: neck pain or back pain Skin/Breast: Denies: rash PFSH ED 2 PFSH: Medical History Family history of lupus anticoagulant disorder Family history of factor V Leiden mutation GERD (gastroesophageal reflux disease) -on PPI Overactive bladder Anemia HLD (hyperlipidemia) -lipid panel ordered -on statin HTN (hypertension) -VSS; continue to monitor -on BB Multiple sclerosis Dementia Hemiplegia and hemiparesis following cerebral infarction affecting right dominant side CVA (cerebral vascular accident) -prior CVA with residual right sided weakness, decreased sensation -noted CT head reported as 5.8 cm subacute non-hemorrhagic infarct in left parietal lobe, stable left hemispheric encephalomalacia. MRI head reported as acute/subacute infarct involving L temporal lobe, numerous flow voids throughout the L cerebral hemisphere consistent with AVM. -Echo: EF=68%, G1DD, no RWMA, trace AR -carotid ultrasound with no significant stenosis -Telemetry monitoring -VSS -Fall/aspiration precautions -PT/ST/OT evaluations appreciated -Continue aspirin, statin added -Troponins noted with no significant delta -noted TSH, A1c, lipid panel Family History Mother Breast cancer Denies family history of Colon cancer Ovarian cancer Prostate cancer Diabetes Heart disease Hypercholesteremia Hypertension Uterine cancer Thyroid disease Stroke Social History Smoking and tobacco/nicotine status: never used tobacco/nicotine Physical Exam 2 Const: GENERAL APPEARANCE: cooperative ORIENTATION/CONSCIOUSNESS: Yes awake and Yes Other orientation findings (Pleasantly demented no acute distress) HENMT: COMMON NORMALS: normocephalic, atraumatic and hearing grossly normal bilaterally HEAD & SCALP: normocephalic and atraumatic Resp: COMMON NORMALS: normal respiratory effort, No retractions, No use of accessory muscles and clear to auscultation bilaterally AUSCULTATION: clear to auscultation bilaterally Cardio: COMMON NORMALS: regular rate, regular rhythm and No murmurs present (Cardio) RATE: regular rate RHYTHM: regular rhythm GI: COMMON NORMALS: Soft to palpation and No hepatosplenomegaly present A USCULTATION: Yes normoactive bowel sounds PALPATION: Yes Soft to palpation, No Tenderness to palpation present (GI), No Guarding due to palpation present (GI) and Yes No hepatosplenomegaly present Extremity: OTHER: Contractures of the right upper extremity particular the hand and the elbow. Right lower extremity is wrapped with Coban. Skin: COMMON NORMALS: no rashes or lesions noted GENERAL SKIN EXAM: no rashes or lesions noted Course 2 Vital Signs: Vital signs: Vital Signs Temperature 98.4 F 07/11/25 14:50 Pulse Rate 93 12/02/24 16:40 Respiratory Rate 16 12/02/24 16:40 Blood Pressure 136/64 12/02/24 16:40 Pulse Oximetry 95 12/02/24 16:40 Oxygen Delivery Me thod Room Air 12/02/24 14:50 MDM - Chest Pain Medical Decision Making Patient has anemia. X-ray is unremarkable. She has musculoskeletal pain in her right shoulder which is reproducible with movement. Will discharge her home have her follow-up with her primary care or Ortho. Lab Data 12/02/24 14:29 12/02/24 14:29 Radiology Impressions Chest X-Ray 12/02/24 15:05 IMPRESSION: No acute cardiopulmonary abnormality. Shoulder X-Ray 12/02/24 15:05 IMPRESSION: Old healed fracture deformity of the right shoulder from previous fracture noted with 2021 exam. Mild degenerative change. No acute findings. Laboratory Results WBC 9.33 10^3/uL (3.29-11.43) 12/02/24 14:29 RBC 4.42 10^6/uL (3.85-5.65) 12/02/24 14:29 Hgb 10.70 g/dL (11.27-16.99) L 12/02/24 14:29 Hct 38.3 % (36-47) 12/02/24 14:29 MCV 86.7 fl (85-98) 12/02/24 14:29 MCH 24.2 pg (27-33) L 12/02/24 14:29 MCHC 27.9 g/dL (30-55) L 12/02/24 14:29 RDW 23.6 % (12.1-15.1) H 12/02/24 14:29 Plt Count 334 10^3/cmm (157-399) 12/02/24 14:29 MPV 10.0 fL (7.4-10.4) 12/02/24 14:29 Neut % (Auto) 71.0 % 12/02/24 14:29 Lymph % (Auto) 16.1 % 12/02/24 14:29 [place] % (Auto) 9.6 % 12/02/24 14:29 Eos % (Auto) 2.4 % 12/02/24 14:29 Baso % (Auto) 0.5 % 12/02/24 14: Neut # (Auto) 6.62 10^3/uL (1.8-7.7) 12/02/24 14: Lymph # (Auto) 1.5 10^3/uL (0.8-4.8) 12/02/24 14: [place] # (Auto) 0.9 10^3/uL (0.2-0.9) 12/02/24 14: Eos # (Auto) 0.2 10^3/uL (0.0-0.8) 12/02/24 14: Baso # (Auto) 0.1 10^3/uL (0.0-0.1) 12/02/24 14: Nucleated RBC % (auto) 0 % 12/02/24 14: Nucleated RBCs # 0.0 /100WBC 12/02/24 14:29 Sodium 143 mmol/L (136-145) 12/02/24 14:29 Potassium 4.8 mmol/L (3.5-5.1) 12/02/24 14: Chloride 103 mmol/L (98-107) 12/02/24 14: Carbon Dioxide 27 mmol/L (22-29) 12/02/24 14:29 Anion Gap 17.8 (5-19) 12/02/24 14:29 BUN 11 mg/dL (8-23) 12/02/24 14:29 Creatinine 1.4 mg/dL (0.5-0.9) H 12/02/24 14:29 GFR Calculation Not Reportable 12/02/24 14:29 Glucose 146 mg/dL (65-115) H 12/02/24 14:29 Calculated Osmolality 298 mOsm/kg (285-295) H 12/02/24 14:29 Calcium 9.8 mg/dL (8.5-10.5) 12/02/24 14:29 Total Bilirubin 1.5 mg/dL (0.15-1.2) H 12/02/24 14:29 AST 14 U/L (0-32) 12/02/24 14:29 ALT 13 U/L (0-33) 12/02/24 14:29 Alkaline Phosphatase 158 U/L (35-105) H 12/02/24 14:29 Total Protein 7.5 g/dL (6.6-8.7) 12/02/24 14:29 Albumin 4.0 g/dL (3.5-5.2) 12/02/24 14:29 Globulin 3.5 g/dL (1.3-4.6) 12/02/24 14:29 Urine Color Yellow (Yellow) 12/02/24 15:55 Urine Appearance Turbid (CLEAR) A 12/02/24 15:55 Urine pH 5.5 (5-7) 12/02/24 15:55 Ur Specific [place] 1.016 (1.005-1.030) 12/02/24 15:55 Urine Protein 2+ (Negative) A 12/02/24 15:55 Urine Glucose (UA) Negative (Normal) 12/02/24 15:55 Urine Ketones Negative (Negative) 12/02/24 15:55 Urine Blood 3+ (Negative) A 12/02/24 15:55 Urine Nitrate Positive (Negative) A 12/02/24 15:55 Urine Bilirubin Negative (Negative) 12/02/24 15:55 Urine Urobilinogen 1.0 mg/dL (Negative) 12/02/24 15:55 Ur Leukocyte Esterase 3+ (Negative) A 12/02/24 15:55 Urine RBC 51-100 /hpf (0-2) H 12/02/24 15:55 Urine WBC >100 /hpf (0-5) H 12/02/24 15:55 Ur Squamous Epith Cells 0-5 /hpf (0-5) 12/02/24 15:55 Amorphous Sediment Not Reportable 12/02/24 15:55 Urine Bacteria 4+ /hpf (NONE) H 12/02/24 15:55 Hyaline Casts 3.30 /lpf 12/02/24 15:55 All radiology interpretation(s) finalized by discharge EKG Data EKG 1: Interpretation: EKG 12/02/2024 1457 sinus rhythm no acute ST changes noted rate of 90 SD interval 136 QTc 470. Compared to 02/27/2020 there is no significant change. Discharge Plan Discharge Patient Disposition: Home Clinical Impression: Pain in right shoulder, Anemia Condition: Stable Prescriptions: New tramadol 25 mg tablet 25 mg PO QID PRN (Reason: pain) Qty: 15 0RF No Action acyclovir 800 mg tablet 800 mg PO .COMPLEX Rx Instructions: 800 mg orally five times per day; bisacodyl [Dulcolax (bisacodyl)] 10 mg suppository 10 mg SD DAILY PRN Mounjaro 2.5 mg/0.5 mL pen injector SUBCUT flu vac [id number] 36mos up(PF) 60 mcg (15 mcg x 4)/0.5 mL syringe IM Abrysvo (PF) 120 mcg/0.5 mL recon soln IM polyethylene glycol 3350 [Miralax] 17 gram/dose powder 17 g PO ONCE 5 Days Qty: 85 0RF PreserVision AREDS 4,296 mcg-226 mg-90 mg capsule 1 cap PO BID atorvastatin 40 mg tablet 40 mg PO DAILY acetaminophen [Tylenol] 325 mg Tablet 650 mg PO QID PRN (Reason: Fever Or Pain) carvedilol 6.25 mg tablet 6.25 mg PO BID loperamide [Imodium A-D] 2 mg Tablet 2 mg PO DAILY aspirin [Slava Low Dose Aspirin] 81 mg Tablet,Delayed Release (Dr/Ec) 81 mg PO DAILY potassium chloride 20 mEq tablet,ER particles/crystals 20 meq PO DAILY omeprazole 20 mg capsule,delayed release(DR/EC) 20 mg PO DAILY fluticasone propionate 50 mcg/actuation spray,suspension 1 spray INTRANASAL DAILY PRN (Reason: Allergy Symptoms) Systane (propylene glycol) 0.4-0.3 % drops 1 drp ophthalmic (eye) TID escitalopram oxalate 5 mg tablet 5 mg PO DAILY Biofreeze (menthol) 4 % Gel 1 applic TOPICAL BID PRN (Reason: Pain) baclofen 5 mg tablet 5 mg PO TID PRN (Reason: JOINT PAIN) furosemide [Lasix] 40 mg tablet 40 mg PO DAILY PRN (Reason: Edema) Qty: 1 0RF Rx Instructions: Dose change only ferrous sulfate 325 mg (65 mg iron) tablet 325 mg PO EVERY OTHER DAY Qty: 90 0RF Discharge Orders: Discharge ED (Routine); Ordered 12/02/24 Ordered By: Kaushal Mcadams Referrals: Diana Cosme PA [Primary Care Provider, Physicians Child Care Supervisor] Discharge Diet: Usual diet Discharge Activity: Increase activity as tolerated Patient Instructions: Opioid Safety, Pain Management, Patient Portal & Marylin Instructions Activity Restrictions/Additional Instructions: Thank you for choosing [facility] for your healthcare needs today. It is very important that you follow up as instructed or that you return to the Emergency Department should you have concerns or if your condition changes or worsens in any way. You were seen in the emergency room with complaints of right shoulder pain. X- rays show old fracture and some mild subluxation of the joint which indicates there may be some weakness and some of the ligaments however given the fact this is the size with the deficits from your previous strokes there is not a good surgical option for treatment. Recommend follow-up with primary care doctor you given tramadol 25 mg tablets to use 1 every 6 hours as needed for pain. Print Language: Chinese Coding Level of Care Code ED Recording Studio Set Up Worker for Linn Bain
--- NOTE | 2024-12-02 15:05 | XRR_ITS ---
PROCEDURE INFORMATION: Exam: XR Chest Exam date and time: 12/02/2024 3:10 PM Age: 74 years old Clinical indication: Cough and dyspnea; Additional info: Dyspnea/cough TECHNIQUE: Imaging protocol: Radiologic exam of the chest. Views: 1 view. COMPARISON: CR (CHEST, ) 11/20/2024 12:24 PM FINDINGS: Lungs: Unremarkable. No infiltrate/edema or consolidation. Pleural spaces: Unremarkable. No pleural effusion. No pneumothorax. Heart/Mediastinum: Unremarkable. No cardiomegaly. Bones/joints: Visualized osseous structures show no acute abnormality. Other findings: No significant change with prior exam. XR/XR chest 1V portable [id number] IMPRESSION: No acute cardiopulmonary abnormality.
--- NOTE | 2024-12-02 15:05 | XRR_ITS ---
PROCEDURE INFORMATION: Exam: XR Right Shoulder Exam date and time: 12/02/2024 3:10 PM Age: 74 years old Clinical indication: Pain; Shoulder; right TECHNIQUE: Imaging protocol: Radiologic exam of the right shoulder. Views: 2 or more views. COMPARISON: CR XR shoulder RT min 2V* [id number] 11/03/2021 11:00 AM FINDINGS: Bones/joints: Old healed fracture deformity of the humeral head/neck of the right shoulder related to prior fracture from 2021 exam. No acute fracture or dislocation is seen. No abnormal widening or separation of the right AC joint. Mild degenerative change. No abnormal soft tissue calcification is seen about the shoulder joint. Soft tissues: Unremarkable. XR/XR shoulder RT min 2V* [id number] IMPRESSION: Old healed fracture deformity of the right shoulder from previous fracture noted with 2021 exam. Mild degenerative change. No acute findings.
--- NOTE | 2024-12-02 15:05 | ECG_ITS ---
[facility] Test Date: 2024-12-02 Pat Name: Lee Ann Leahy Department: Room: Gender: Female Action Installer: : 1950 Requested By: Kaushal Lynn Order Number: [id number] Carlton MD: Iram Power M.D. Measurements Intervals [place] Rate: 90 P: 52 MA: 136 QRS: 51 QRSD: 81 T: 66 QT: 384 QTc: 470 Interpretive Statements SINUS RHYTHM Compared to ECG 03/08/2020 08:23:54 Sinus tachycardia no longer present Atrial abnormality no longer present Electronically Signed On 12-02-2024 15:35:02 CDT by Iram Power M.D. [email or web address]
[2024-12-02 15:29] LABS: Hematocrit 38.3 % (36-47); Hemoglobin 10.70 g/dL (11.27-16.99); Mean Corpuscular HGB Conc 27.9 g/dL (30-55); Mean Corpuscular Hemoglobin 24.2 pg (27-33); Mean Corpuscular Volume 86.7 fl (85-98); Nucleated Red Blood Cells % 0 %; Platelet Count 334 10^3/cmm (157-399); Red Blood Count 4.42 10^6/uL (3.85-5.65); White Blood Count 9.33 10^3/uL (3.29-11.43)
[2024-12-02 15:57] LABS: Alanine Aminotransferase 13 U/L (0-33); Albumin Level 4.0 g/dL (3.5-5.2); Alkaline Phosphatase 158 U/L (35-105); Anion Gap 17.8 (5-19); Aspartate Amino Transferase 14 U/L (0-32); Blood Urea Nitrogen 11 mg/dL (8-23); Calcium 9.8 mg/dL (8.5-10.5); Carbon Dioxide 27 mmol/L (22-29); Chloride 103 mmol/L (98-107); Creatinine Clr Calc Pharmacy 35.2984; Globulin 3.5 g/dL (1.3-4.6); Glucose 146 mg/dL (65-115); Osmolality Calculated 298 mOsm/kg (285-295); Potassium 4.8 mmol/L (3.5-5.1); Sodium 143 mmol/L (136-145); Total Protein 7.5 g/dL (6.6-8.7)
[2024-12-02 16:10] LABS: Glucose Urine UA Negative (Normal); Nitrate Urine Positive (Negative); Specific Gravity, Urine 1.016 (1.005-1.030)
[2024-12-02 16:15] LABS: Add Urine Microscopic? YES; Universal Test for UA Present (0)
[2024-12-02 16:37] LABS: UA Slide Review UA Slide Review Perf
[2024-12-02 16:40] VITALS: BP 136/64; PULSE 93; RESP 16; O2SAT 95
== END 2024-12-02 17:01 | disposition home or self-care (01) ==
PROVIDERS: Emergency Provider Family Medicine; PCP Physician Assistant
DX: M25.511 Pain in right shoulder (principal); D64.9 Anemia, unspecified; Z79.82 Long term (current) use of aspirin; Z86.73 Personal history of transient ischemic attack (TIA), and cerebral infarction without residual deficits; I10 Essential (primary) hypertension; E78.5 Hyperlipidemia, unspecified
CPT/HCPCS: 71045; 73030; 80053; 81001; 85025; 87077; 87086; 87186; 93005; 99285

== ENCOUNTER → 2024-12-07 09:29 | Outpatient (BNVA) | payer MEDICARE, MEDICAID, SELFPAY | PROVIDERS: PCP Physician Assistant; Visit Provider Surgery | DX: Z12.11 Encounter for screening for malignant neoplasm of colon (principal) | CPT/HCPCS: 99024; 99204 ==

== ENCOUNTER 2024-12-12 16:46 | Emergency (ER) | payer MEDICARE, MEDICAID, SELFPAY ==
--- OUTSIDE RECORDS SUMMARY | 2024-12-12 16:52 | XMS_ITS | Encounter Summary ---
Author Organization [facility] Address [address] [place] [address] Care Team Providers Care Assistant Professor Of Education Name Role Phone Unavailable Primary Care Provider Unavailabl e Encounter Details Date Type Department Care Team (Late st Contact Info) Description 12/07/2019 Lab Requisition [facility] [address] [place] [address] [place] [address] Bernabe Cuellar, [address] [facility] [address] [place] [address] Social History Tobacco Use Types [...] - 150.0 ng/mL 12/07/2019 2:50 PM CDT [facility] Blood Collection / Unknown 12/07/2019 8:48 AM CDT 12/07/2019 2:26 PM CDT Narrative [facility] - 12/07/2019 2:50 PM CDT Premenopausal Range 10-150 ng/mL Postmenopausal Range 10-291 ng/mL Bernabe Cuellar DO CHEMISTRY ORDERABLES Final Result Performing Organization Address City/[facility]/ZIP Co de Phone Number [address] [address] * (ABNORMAL) IRON, TIBC, AND PERCENT SATURATION (12/07/2019 8:48 AM CDT) IRON 79 37 - 145 ug/dL 12/07/2019 2:50 PM CDT [facility] TIBC 238(L) 250 - 450 ug/dL 12/07/2019 2:50 PM CDT [facility] IRON % SATURATION 33 15 - 60 % 12/07/2019 2:50 PM CDT [facility] Blood Collection / Unknown 12/07/2019 8:48 AM CDT 12/07/2019 2:26 PM CDT Bernabe Cuellar DO CHEMISTRY ORDERABLES Final Result Performing Organization Address [facility]/ZIP Co de Phone Number [address] [address] * TSH (12/07/2019 8:48 AM CDT) TSH 1.38 0.27 - 4.20 uIU/mL 12/07/2019 2:50 PM CDT [facility] Blood Collection / Unknown 12/07/2019 8:48 AM CDT 12/07/2019 2:26 PM CDT Bernabe Cuellar DO CHEMISTRY ORDERABLES Final Result [facility] [address] [place] [address] * (ABNORMAL) BASIC METABOLIC PANEL (12/07/2019 8:48 AM CDT) SODIUM 144 136 - 145 mmol/L 12/07/2019 2:50 PM CDT [facility] POTASSIUM 4.5 3.5 - 5.1 mmol/L 12/07/2019 2:50 PM CDT [facility] CHLORIDE 109(H) 98 - 107 mmol/L 12/07/2019 2:50 PM CDT [facility] CO2 22 22 - 29 mmol/L 12/07/2019 2:50 PM CDT [facility] CALCIUM 10.1 8.8 - 10.2 mg/dL 12/07/2019 2:50 PM CDT [facility] BUN 38(H) 8 - 23 mg/dL 12/07/2019 2:50 PM CDT [facility] CREATININE 1.43(H) 0.51 - 0.95 mg/dL 12/07/2019 2:50 PM CDT [facility] GLUCOSE 117(H) 74 - 99 mg/dL 12/07/2019 2:50 PM CDT [facility] GFR 37(L) >=60 mL/min/1. 73 sq meter 12/07/2019 2:50 PM CDT [facility] Comment: eGFR has not been validated [...] 73 sq meter 12/07/2019 2:50 PM CDT [facility] ANION GAP 13 9 - 20 mmol/L 12/07/2019 2:50 PM CDT [facility] Blood Collection / Unknown 12/07/2019 8:48 AM CDT 12/07/2019 2:26 PM CDT Bernabe Cuellar DO CHEMISTRY ORDERABLES Final Result [facility] [address] [place] [address] * (ABNORMAL) CBC WITH DIFFERENTIAL (12/07/2019 8:48 AM CDT) Pathologist [facility] WBC 9.0 4.8 - 10.8 K/uL 12/07/2019 2:27 PM CDT [facility] RBC 4.36 4.20 - 5.40 M/uL 12/07/2019 2:27 PM CDT [facility] HEMOGLOBIN 13.0 12.0 - 16.0 g/dL 12/07/2019 2:27 PM CDT [facility] HEMATOCRIT 40.8 36.0 - 46.0 % 12/07/2019 2:27 PM CDT [facility] MCV 93.6 84.0 - 103.0 fL 12/07/2019 2:27 PM CDT [facility] MCH 29.8 27.0 - 34.0 pg 12/07/2019 2:27 PM CDT [facility] MCHC 31.9 30.0 - 35.0 g/dL 12/07/2019 2:27 PM CDT [facility] RDW 13.3 11.0 - 14.5 % 12/07/2019 2:27 PM CDT [facility] RDW-STDEV 45.2 37.0 - 54.0 fL 12/07/2019 2:27 PM CDT [facility] PLATELETS 256 140 - 440 K/uL 12/07/2019 2:27 PM CDT [facility] MPV 10.4 8.9 - 12.8 fL 12/07/2019 2:27 PM CDT [facility] NEUTROPHILS 69 42 - 75 % 12/07/2019 2:27 PM CDT [facility] LYMPHOCYTES 19(L) 24 - 44 % 12/07/2019 2:27 PM CDT [facility] MONOCYTES 8 2 - 10 % 12/07/2019 2:27 PM CDT [facility] EOSINOPHILS 2 0 - 7 % 12/07/2019 2:27 PM CDT [facility] BASOPHILS 1 0 - 1 % 12/07/2019 2:27 PM CDT [facility] IMMATURE GRANULOCYTES 1 0 - 2 % 12/07/2019 2:27 PM CDT [facility] NEUTROPHIL ABSOLUTE 6.21 2.00 - 8.00 K/uL 12/07/2019 2:27 PM CDT [facility] LYMPHOCYTE ABSOLUTE 1.74 1.20 - 4.00 K/uL 12/07/2019 2:27 PM CDT [facility] MONOCYTE ABSOLUTE 0.73(H) 0.10 - 0.60 K/uL 12/07/2019 2:27 PM CDT [facility] EOSINOPHIL ABSOLUTE 0.19 0.00 - 0.70 K/uL 12/07/2019 2:27 PM CDT [facility] BASOPHILS ABSOLUTE 0.07 0.00 - 0.20 K/uL 12/07/2019 2:27 PM CDT [facility] IMMATURE GRANULOCYTES ABSOLUTE 0.05 0.00 - 0.10 K/uL 12/07/2019 2:27 PM CDT [facility] Blood Collection / Unknown 12/07/2019 8:48 AM CDT 12/07/2019 2:24 PM CDT us Bernabe Cuellar DO HEMATOLOGY ORDERABLES Final Result [facility] [address] [place] [address] documented in this encounter Visit Diagnoses Not on filedocumented in this encounter
--- OUTSIDE RECORDS SUMMARY | 2024-12-12 16:52 | XMS_ITS | Clinical Summary ---
Author Organization [facility] Address [address] [place] [address] Phone Care Team Providers Care It Project Coordinator Name Role Phone Unavailable Primary Care Provider [...] (1 - 1-dose 75+ series) 2027 Insurance Book&Table [id number] HMO
--- NOTE | 2024-12-12 17:02 | CTR_ITS ---
PROCEDURE INFORMATION: Exam: CT Head Without Contrast Exam date and time: 12/12/2024 6:01 PM Age: 74 years old Clinical indication: Injury or trauma; Fall; Blunt trauma (contusions or hematomas) and concussion/head injury; Without loss of consciousness TECHNIQUE: Imaging protocol: Computed tomography of the head without contrast. Radiation optimization: All CT scans at this facility use at least one of these dose optimization techniques: automated exposure control; mA and/or kV adjustment per patient size (includes targeted exams where dose is matched to clinical indication); or iterative reconstruction. COMPARISON: CT head wo con* [id number] 11/19/2024 3:09 AM RADIATION DOSE METRICS: Total DLP (mGy-cm): 1128.7 FINDINGS: Brain: Redemonstrated extensive dystrophic calcifications with areas of old infarct in the left frontal, parietal, and occipital lobes as well as the left basal ganglia. Mild calcifications along the right basal ganglia. No hemorrhage. Generalized cortical volume loss. Periventricular and subcortical white matter hypodensities likely represent chronic small vessel ischemic changes. No mass effect. Cerebral ventricles: No ventriculomegaly. Paranasal sinuses: Visualized sinuses are unremarkable. No fluid levels. Mastoid air cells: Visualized mastoid air cells are well aerated. Orbital cavities: Bilateral lens replacements. Bones: Unremarkable. No acute fracture. Soft tissues: Unremarkable. CT/CT head wo con* [id number] IMPRESSION: 1. No acute intracranial abnormality. 2. Chronic/age-related changes as above are similar to prior.
--- NOTE | 2024-12-12 17:02 | CTR_ITS ---
PROCEDURE INFORMATION: Exam: CT Cervical Spine Without Contrast Exam date and time: 12/12/2024 6:01 PM Age: 74 years old Clinical indication: Injury or trauma; Fall; Blunt trauma and concussion/head injury TECHNIQUE: Imaging protocol: Computed tomography of the cervical spine without contrast. Radiation optimization: All CT scans at this facility use at least one of these dose optimization techniques: automated exposure control; mA and/or kV adjustment per patient size (includes targeted exams where dose is matched to clinical indication); or iterative reconstruction. COMPARISON: CT cervical spin wo con* [id number] 11/19/2024 3:11 AM RADIATION DOSE METRICS: Total DLP (mGy-cm): 199.4 FINDINGS: Bones: No acute fracture visualized. Vertebral body heights are maintained. Similar large bridging anterior osteophytes at C5-C6 and C6-C7. Redemonstrated tortuosity of the left vertebral artery with enlargement of the foramen transversarium, most pronounced at C3-C4. Likely mild to moderate spinal canal stenosis at C3-C4 and C4-C5 related to disc bulge. There is a mildly displaced fracture of the right posterior 2nd rib (best seen on coronal series 10 images 11-16). Lungs: Lung apices are normal. Soft tissues: Unremarkable. CT/CT cervical spin wo con* [id number] IMPRESSION: 1. No acute osseous findings in the cervical spine. 2. Mildly displaced right posterior 2nd rib fracture
[2024-12-12 17:05] VITALS: BP 136/84; PULSE 74; RESP 16; TEMP 36.4; O2SAT 92
--- NOTE | 2024-12-12 17:05 | W.ED.HEATRA ---
HPI - Head Injury General: Chief complaint: Fall Stated complaint: Fall Time Seen by Provider: 12/12/24 16:46 Source: patient and EMS Mode of arrival: EMS History of Present Illness: 74-year-old female is here from [facility] after she had fell off the commode EMS states she did hit her head has a mild headache right side of the head denies any other injuries denies any extremity pain. She is on any blood thinners Associated symptoms: Deny nausea, neck pain or vomiting Related Data Home Medications ?Medication ?Instructions ?Recorded ?Confirmed vitamins A,C,D-cian-cpqiqn 4,296 1 cap PO BID 07/08/23 12/07/24 mcg-226 mg-90 mg capsule (PreserVision AREDS) acetaminophen 325 mg tablet 650 mg PO QID PRN Fever Or Pain 11/20/24 11/20/24 (Tylenol) aspirin 81 mg tablet,delayed 81 mg PO DAILY 11/20/24 11/20/24 release (Slava Low Dose Aspirin) atorvastatin 40 mg tablet 40 mg PO DAILY 11/20/24 12/07/24 baclofen 5 mg tablet 5 mg PO TID PRN JOINT PAIN 11/20/24 12/07/24 carvedilol 6.25 mg tablet 6.25 mg PO BID 11/20/24 12/07/24 escitalopram oxalate 5 mg tablet 5 mg PO DAILY anxiety 11/20/24 12/07/24 fluticasone propionate 50 1 spray intranasal DAILY PRN 11/20/24 12/07/24 mcg/actuation nasal Allergy Symptoms spray,suspension loperamide 2 mg tablet (Imodium 2 mg PO DAILY 11/20/24 12/07/24 A-D) menthol 4 % topical gel (Biofreeze 1 applic topical BID PRN Pain 11/20/24 12/07/24 (menthol)) omeprazole 20 mg capsule,delayed 20 mg PO DAILY 11/20/24 12/07/24 release peg 400-propylene glycol 0.4 %-0.3 1 drp ophthalmic (eye) TID 11/20/24 12/07/24 % eye drops (Systane (propylene glycol)) potassium chloride 20 mEq 20 meq PO DAILY take with Lasix 11/20/24 12/07/24 tablet,extended release(part/cryst) RSV vac, preF A and preF B(PF) 120 ml IM 12/07/24 12/07/24 mcg/0.5 mL IM solution (Abrysvo (PF)) acyclovir 800 mg tablet 800 mg PO .COMPLEX 12/07/24 12/07/24 bisacodyl 10 mg rectal suppository 10 mg IA DAILY PRN 12/07/24 12/07/24 (Dulcolax (bisacodyl)) flu vac [id number] 36mos up(PF) 60 ml IM 12/07/24 12/07/24 mcg (15 mcg x4)/0.5 mL IM syringe tirzepatide 2.5 mg/0.5 mL mg SUBCUT 12/07/24 12/07/24 subcutaneous pen injector (Ambreen) Previous Rx's ?Medication ?Instructions ?Recorded ferrous sulfate 325 mg (65 mg 325 mg PO EVERY OTHER DAY #90 tabs 11/22/24 iron) tablet furosemide 40 mg tablet (Lasix) 40 mg PO DAILY PRN Edema #1 tab 11/22/24 tramadol 25 mg tablet 25 mg PO QID PRN pain #15 tabs 12/02/24 polyethylene glycol 3350 17 17 g PO ONCE 5 days #85 grams 12/07/24 gram/dose oral powder (Miralax) Allergies Allergy/AdvReac Type Severity Reaction Status Date / Time No Known Allergies Allergy Verified 07/08/23 13:10 Review of Systems Const: Denies: fever(s), chills, body aches or change in appetite ENMT: Denies: throat pain or dental pain Card: Denies: chest pain Resp: Denies: dyspnea GI: Denies: abdominal pain, nausea, vomiting or diarrhea Musc: Reports: extremity pain; Denies: neck pain or back pain Skin/Breast: Denies: rash Neuro: Denies: headache(s) PFSH ED PFSH: Medical History Family history of lupus anticoagulant disorder Family history of factor V Leiden mutation GERD (gastroesophageal reflux disease) -on PPI Overactive bladder Anemia HLD (hyperlipidemia) -lipid panel ordered -on statin HTN (hypertension) -VSS; continue to monitor -on BB Multiple sclerosis Dementia Hemiplegia and hemiparesis following cerebral infarction affecting right dominant side CVA (cerebral vascular accident) -prior CVA with residual right sided weakness, decreased sensation -noted CT head reported as 5.8 cm subacute non-hemorrhagic infarct in left parietal lobe, stable left hemispheric encephalomalacia. MRI head reported as acute/subacute infarct involving L temporal lobe, numerous flow voids throughout the L cerebral hemisphere consistent with AVM. -Echo: EF=68%, G1DD, no RWMA, trace AR -carotid ultrasound with no significant stenosis -Telemetry monitoring -VSS -Fall/aspiration precautions -PT/ST/OT evaluations appreciated -Continue aspirin, statin added -Troponins noted with no significant delta -noted TSH, A1c, lipid panel Family History Mother Breast cancer Denies family history of Colon cancer Ovarian cancer Prostate cancer Diabetes Heart disease Hypercholesteremia Hypertension Uterine cancer Thyroid disease Stroke Social History Smoking and tobacco/nicotine status: never used tobacco/nicotine Physical Exam Const: COMMON NORMALS: no acute distress, patient oriented x3 and healthy appearing HENMT: COMMON NORMALS: normocephalic HEAD & SCALP: normocephalic OTHER: tenderness over right scalp Eye: COMMON NORMALS: Equal, round and reactive pupils present and EOMs intact bilaterally PUPIL: Yes Equal, round and reactive pupils present Neck/C-Spine: COMMON NORMALS: full ROM and supple Chest: COMMONS NORMALS: normal inspection of the chest and normal palpation of entire chest wall Resp: COMMON NORMALS: normal respiratory effort Cardio: COMMON NORMALS: regular rate, regular rhythm and No murmurs present (Cardio) RATE: regular rate RHYTHM: regular rhythm GI: COMMON NORMALS: Normal to inspection, nondistended, normoactive bowel sounds present, Soft to palpation, non-tender and no masses PALPATION: Yes Soft to palpation Extremity: COMMON NORMALS: normal to inspection and full ROM Neuro: COMMON NORMALS: patient oriented x3, moves all extremities and no focal motor deficits Psych: COMMON NORMALS: mental status grossly normal, Normal thought process present and cooperative THOUGHT PROCESS: Normal thought process present Skin: COMMON NORMALS: no rashes or lesions noted and no wounds GENERAL SKIN EXAM: no rashes or lesions noted Course Vital Signs: Vital signs: Vital Signs Temperature 97.5 F L 12/12/24 17:05 Pulse Rate 74 12/12/24 17:05 Respiratory Rate 16 12/12/24 17:05 Blood Pressure 141/69 12/12/24 18:46 Pulse Oximetry 90 12/12/24 18:46 MDM - Head Injury Medcial Decision Making Patient presents here with a right second rib fracture from a fall head CT cervical CTs negative. Patient CT chest is negative no signs of any hip injuries. Medical Records I reviewed the patient's medical records. Lab Data I reviewed the patient's lab results. Radiology Impressions Cervical Spine CT 12/12/24 17:02 IMPRESSION: 1. No acute osseous findings in the cervical spine. 2. Mildly displaced right posterior 2nd rib fracture Head CT 12/12/24 17:02 IMPRESSION: 1. No acute intracranial abnormality. 2. Chronic/age-related changes as above are similar to prior. Chest X-Ray 12/12/24 18:26 IMPRESSION: No acute cardiopulmonary findings. Chest CT 12/12/24 18:36 IMPRESSION: 1. Mildly displaced right posterior 2nd rib fracture. 2. Otherwise no acute findings in the chest. All radiology interpretation(s) finalized by discharge Discharge Plan Discharge Patient Disposition: Home Clinical Impression: Fall Qualifiers: Encounter type: initial encounter Qualified Code(s): W19.XXXA - Unspecified fall, initial encounter Closed head injury Qualifiers: Encounter type: initial encounter Qualified Code(s): S09.90XA - Unspecified injury of head, initial encounter Closed rib fracture Qualifiers: Encounter type: initial encounter Rib fracture type: single rib Laterality: right Qualified Code(s): S22.31XA - Fracture of one rib, right side, initial encounter for closed fracture Condition: Stable Prescriptions: No Action acyclovir 800 mg tablet 800 mg PO .COMPLEX Rx Instructions: 800 mg orally five times per day; bisacodyl [Dulcolax (bisacodyl)] 10 mg suppository 10 mg IA DAILY PRN Mounjaro 2.5 mg/0.5 mL pen injector SUBCUT flu vac [id number] 36mos up(PF) 60 mcg (15 mcg x 4)/0.5 mL syringe IM Abrysvo (PF) 120 mcg/0.5 mL recon soln IM polyethylene glycol 3350 [Miralax] 17 gram/dose powder 17 g PO ONCE 5 Days Qty: 85 0RF PreserVision AREDS 4,296 mcg-226 mg-90 mg capsule 1 cap PO BID tramadol 25 mg tablet 25 mg PO QID PRN (Reason: pain) Qty: 15 0RF atorvastatin 40 mg tablet 40 mg PO DAILY acetaminophen [Tylenol] 325 mg Tablet 650 mg PO QID PRN (Reason: Fever Or Pain) carvedilol 6.25 mg tablet 6.25 mg PO BID loperamide [Imodium A-D] 2 mg Tablet 2 mg PO DAILY aspirin [Slava Low Dose Aspirin] 81 mg Tablet,Delayed Release (Dr/Ec) 81 mg PO DAILY potassium chloride 20 mEq tablet,ER particles/crystals 20 meq PO DAILY omeprazole 20 mg capsule,delayed release(DR/EC) 20 mg PO DAILY fluticasone propionate 50 mcg/actuation spray,suspension 1 spray INTRANASAL DAILY PRN (Reason: Allergy Symptoms) Systane (propylene glycol) 0.4-0.3 % drops 1 drp ophthalmic (eye) TID escitalopram oxalate 5 mg tablet 5 mg PO DAILY Biofreeze (menthol) 4 % Gel 1 applic TOPICAL BID PRN (Reason: Pain) baclofen 5 mg tablet 5 mg PO TID PRN (Reason: JOINT PAIN) furosemide [Lasix] 40 mg tablet 40 mg PO DAILY PRN (Reason: Edema) Qty: 1 0RF Rx Instructions: Dose change only ferrous sulfate 325 mg (65 mg iron) tablet 325 mg PO EVERY OTHER DAY Qty: 90 0RF Discharge Orders: Discharge ED (Routine); Ordered 12/12/24 Ordered By: Donita Andrews Referrals: Diana Cosme PA [Primary Care Provider, Physicians Research Scientist] - 4-7 days Discharge Diet: Advance as tolerated Discharge Activity: Resume usual activity Patient Instructions: Rib Fracture (ED), Head Injury (ED) Print Language: Occitan Coding Level of Care Code ED Critical Care Clinical Nurse Specialist for Linn Bain
[2024-12-12 17:36] VITALS: BP 147/59; O2SAT 93
--- NOTE | 2024-12-12 18:26 | XRR_ITS ---
PROCEDURE INFORMATION: Exam: XR Chest Exam date and time: 12/12/2024 6:30 PM Age: 74 years old Clinical indication: Injury or trauma; Fall; Blunt trauma (contusions or hematomas); Additional info: Cp TECHNIQUE: Imaging protocol: Radiologic exam of the chest. Views: 1 view. COMPARISON: CR XR chest 1V portable [id number] 12/02/2024 3:10 PM FINDINGS: Lungs: Unremarkable. No consolidation. Pleural spaces: Unremarkable. No pleural effusion. No pneumothorax. Heart/Mediastinum: Unremarkable. No cardiomegaly. Bones/joints: Mildly displaced right posterior 2nd rib fracture, better assessed on accompanying CT cervical spine. XR/XR chest 1V portable [id number] IMPRESSION: No acute cardiopulmonary findings.
--- NOTE | 2024-12-12 18:36 | CTR_ITS ---
PROCEDURE INFORMATION: Exam: CT Chest Without Contrast; Diagnostic Exam date and time: 12/12/2024 6:57 PM Age: 74 years old Clinical indication: Injury or trauma; Fall; Blunt trauma (contusions or hematomas) TECHNIQUE: Imaging protocol: Diagnostic computed tomography of the chest without contrast. Radiation optimization: All CT scans at this facility use at least one of these dose optimization techniques: automated exposure control; mA and/or kV adjustment per patient size (includes targeted exams where dose is matched to clinical indication); or iterative reconstruction. COMPARISON: CR (CHEST, ) 12/12/2024 6:30 PM RADIATION DOSE METRICS: Total DLP (mGy-cm): 419.01 FINDINGS: Thyroid: Atrophic versus surgically absent left thyroid lobe. Lungs: Dependent atelectasis in bilateral lower lobes. No evidence of pulmonary contusion or laceration. No focal consolidation. Pleural spaces: Unremarkable. No pneumothorax. No pleural effusion. Heart: Unremarkable. No cardiomegaly. No pericardial effusion. Coronary arteries: Moderate coronary artery calcifications. Lymph nodes: Unremarkable. No enlarged lymph nodes. Vasculature: Scattered atherosclerotic aortic calcifications. No thoracic aortic aneurysm. Bones/joints: Chronic anterior compression wedge deformity at T12 is similar to prior. Mild endplate deformities at multiple levels throughout the thoracic spine also appears similar to prior. Mildly displaced right posterior 2nd rib fracture. Soft tissues: Unremarkable. CT/CT chest wo con [id number] IMPRESSION: 1. Mildly displaced right posterior 2nd rib fracture. 2. Otherwise no acute findings in the chest.
[2024-12-12 18:46] VITALS: BP 141/69; O2SAT 90
[2024-12-12 20:38] VITALS: BP 151/60; PULSE 76; RESP 16; O2SAT 96
== END 2024-12-12 20:40 | disposition home or self-care (01) ==
PROVIDERS: Emergency Provider Emergency Medicine; PCP Physician Assistant
DX: S09.8XXA Other specified injuries of head, initial encounter (principal); S22.31XA Fracture of one rib, right side, initial encounter for closed fracture; Z79.82 Long term (current) use of aspirin; W19.XXXA Unspecified fall, initial encounter; E78.5 Hyperlipidemia, unspecified; I10 Essential (primary) hypertension; Z86.73 Personal history of transient ischemic attack (TIA), and cerebral infarction without residual deficits
CPT/HCPCS: 70450; 71045; 71250; 72125; 99284

== ENCOUNTER 2024-12-30 17:52 | Inpatient (IN) | payer MEDICARE, MEDICAID, SELFPAY ==
[2024-12-30] VITALS (8 sets, daily range): BP systolic 131–153; BP diastolic 50–69; PULSE 74–82; RESP 16–17; TEMP 36.6–36.7; O2SAT 92–98; BMI 24.7
--- OUTSIDE RECORDS SUMMARY | 2024-12-30 17:56 | XMS_ITS | Clinical Summary ---
Author Organization [facility] Address [address] [place] [address] Phone Care Team Providers Care Freight Engineer Name Role Phone Unavailable Primary Care [...] (1 - 1-dose 75+ series) 2027 Insurance [employer] [id number] HMO
--- OUTSIDE RECORDS SUMMARY | 2024-12-30 17:56 | XMS_ITS | Continuity of Care Document ---
Author Organization [facility] ([facility]) Address [address] [place] [address] Insurance Providers Payer Plan Claims Address Claims Phone Policy Number Group Number Relation Employer Guarantor Name Guarantor Guarantor Address Guarantor Phone [employer] [id number] [place] [address] tel:[phone] [id number] Self Lee Ann Armond [address] [place] [id number] MEDIC AID [id number] Self Lee Ann Armond 1950 [address] [place] [address] [employer] [address] [address], [place] [address] tel:[phone] [id number] Self Lee Ann Armond 1950 [address] [place] [address] Problems Condition ICD9 code ICD10 code SNOMED [...] Unspecified osteoarthritis, unspecified site M19.90 09/19/2014 Active 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 Z79.82 05/25/2018 Active [...] Status acetaminophen 325 mg tablet (acetaminophen) 2 [id number] MG, oral, Every 6 Hours - PRN, [...] 75 mm[Hg] 05/03/2024 09:19 AM Body Weight (73157-9) 163.4 [lb_av ] Body Mass Index (49879-1) 28.94 kg/m2 05/03/2024 07:28 AM Heart Rate (8867-4) 71 /min Blood Pressure Systolic (8480-6) 104 mm[Hg] Blood Pressure Diastolic (8462-4) 58 mm[Hg] 05/02/2024 09:18 PM Heart Rate (8867-4) 81 /min Blood Pressure Systolic (8480-6) 147 mm[Hg] Blood Pressure Diastolic (8462-4) 62 mm[Hg] 05/02/2024 09:43 AM Body Weight (48558-2) 168.6 [lb_av ] Body Mass Index (59582-5) 29.86 kg/m2 05/02/2024 07:31 AM Heart Rate (8867-4) 81 /min Blood Pressure Systolic (8480-6) 116 mm[Hg] Blood Pressure Diastolic (8462-4) 62 mm[Hg] 05/01/2024 07:24 PM Heart Rate (8867-4) 71 /min Blood Pressure Systolic (8480-6) 119 mm[Hg] Blood Pressure Diastolic (8462-4) 68 mm[Hg] 05/01/2024 11:32 AM Body Weight (21040-5) 166.7 [lb_av ] Body Mass Index (50726-4) 29.53 kg/m2 05/01/2024 08:42 AM Heart Rate (8867-4) 79 /min Blood Pressure Systolic (8480-6) 124 mm[Hg] Blood Pressure Diastolic (8462-4) 72 mm[Hg] 04/30/2024 07:23 PM Heart Rate (8867-4) 71 /min Blood Pressure Systolic (8480-6) 119 mm[Hg] Blood Pressure Diastolic (8462-4) 71 mm[Hg] 04/30/2024 09:10 AM Body Weight (65774-3) 167 [lb_av] Body Mass Index (31833-3) 29.58 kg/m2 04/30/2024 09:01 AM Heart Rate (8867-4) 82 /min Blood Pressure Systolic (8480-6) 123 mm[Hg] Blood Pressure Diastolic (8462-4) 74 mm[Hg] 04/29/2024 07:02 PM Heart Rate (8867-4) 74 /min Blood Pressure Systolic (8480-6) 133 mm[Hg] Blood Pressure Diastolic (8462-4) 71 mm[Hg] 04/29/2024 08:53 AM Body Weight (49499-8) 165.6 [lb_av ] Body Mass Index (44520-4) 29.33 kg/m2 04/29/2024 07:57 AM Heart Rate (8867-4) 80 /min Blood Pressure Systolic (8480-6) 126 mm[Hg] Blood Pressure Diastolic (8462-4) 60 mm[Hg] 04/28/2024 09:15 AM Body Weight (99213-2) 165.4 [lb_av ] Body Mass Index (57165-2) 29.3 kg/m2 04/27/2024 09:38 AM Body Weight (20083-8) 163.2 [lb_av ] Body Mass Index (60402-4) 28.91 kg/m2 04/27/2024 06:44 AM Temperature (8310-5) 98 [degF] Oxygen Saturation (28982-5) 90 % Respiratory Rate (9279-1) 18 /min 04/26/2024 09:34 AM Body Weight (77245-9) 163.2 [lb_av ] Body Mass Index (89898-4) 28.91 kg/m2 04/25/2024 09:01 AM Body Weight (99601-6) 162.4 [lb_av ] Body Mass Index (40883-2) 28.76 kg/m2 04/24/2024 10:02 AM Body Weight (21597-0) 163.6 [lb_av ] Body Mass Index (59761-3) 28.98 kg/m2 04/23/2024 09:26 AM Body Weight (64852-0) 163.8 [lb_av ] Body Mass Index (60864-5) 29.01 kg/m2 04/22/2024 07:40 AM Body Weight (16940-4) 163.2 [lb_av ] Body Mass Index (25009-3) 28.91 kg/m2 04/21/2024 09:20 AM Body Weight (62539-2) 167 [lb_av] Body Mass Index (57718-4) 29.58 kg/m2 04/20/2024 08:27 AM Temperature (8310-5) 98.7 [degF] Oxygen Saturation (30584-6) 93 % Respiratory Rate (9279-1) 18 /min 04/20/2024 08:26 AM Body Weight (91373-7) 162.8 [lb_av ] Body Mass Index (80360-5) 28.84 kg/m2 04/19/2024 08:32 AM Body Weight (28152-6) 163.8 [lb_av ] Body Mass Index (53755-1) 29.01 kg/m2 04/18/2024 06:39 AM Body Weight (27207-3) 164.2 [lb_av ] Body Mass Index (50690-3) 29.08 kg/m2 04/17/2024 10:53 AM Body Weight (59142-9) 166.4 [lb_av ] Body Mass Index (31271-6) 29.47 kg/m2 04/16/2024 04:28 PM Body Weight (00581-8) 166.2 [lb_av ] Body Mass Index (57462-0) 29.44 kg/m2 04/15/2024 04:09 PM Body Weight (30337-0) 166.2 [lb_av ] Body Mass Index (57910-2) 29.44 kg/m2 04/14/2024 06:46 AM Body Weight (67789-3) 163.4 [lb_av ] Body Mass Index (34309-5) 28.94 kg/m2 04/13/2024 12:20 PM Body Weight (37124-2) 166.6 [lb_av ] Body Mass Index (33302-9) 29.51 kg/m2 04/13/2024 09:18 AM Temperature (8310-5) 98.2 [degF] Oxygen Saturation (40407-9) 96 % Respiratory Rate (9279-1) 16 /min 04/12/2024 11:19 AM Body Weight (76340-5) 166.2 [lb_av ] Body Mass Index (89213-3) 29.44 kg/m2 04/11/2024 09:55 AM Body Weight (47248-8) 167 [lb_av] Body Mass Index (70773-6) 29.58 kg/m2 04/10/2024 04:03 PM Body Weight (27911-2) 167.1 [lb_av ] Body Mass Index (24940-5) 29.6 kg/m2 04/09/2024 04:23 PM Body Weight (69064-7) 167.4 [lb_av ] Body Mass Index (72854-3) 29.65 kg/m2 04/08/2024 03:27 PM Body Weight (47381-3) 167.2 [lb_av ] Body Mass Index (71248-7) 29.61 kg/m2 04/07/2024 11:07 AM Body Weight (06013-0) 164.2 [lb_av ] Body Mass Index (99346-2) 29.08 kg/m2 04/06/2024 09:47 AM Temperature (8310-5) 98.1 [degF] Oxygen Saturation (33435-2) 97 % Respiratory Rate (9279-1) 17 /min Body Weight (76179-8) 164.8 [lb_av] Body Mass Index (97658-3) 29.19 kg/m2 04/05/2024 07:21 AM Body Weight (51801-4) 163.8 [lb_av ] Body Mass Index (88533-0) 29.01 kg/m2 04/04/2024 05:13 PM Body Weight (41639-6) 167.8 [lb_av ] Body Mass Index (39839-5) 29.72 kg/m2 04/02/2024 03:27 PM Body Weight (82557-1) 172.1 [lb_av ] Body Mass Index (00512-8) 30.48 kg/m2 04/01/2024 03:02 PM Body Weight (10816-8) 172.8 [lb_av ] Body Mass Index (22581-2) 30.61 kg/m2 03/31/2024 04:38 PM Body Weight (50490-0) 173.2 [lb_av ] Body Mass Index (48716-4) 30.68 kg/m2 03/30/2024 01:50 PM Body Weight (19115-5) 173.2 [lb_av ] Body Mass Index (95220-9) 30.68 kg/m2 03/30/2024 10:41 AM Temperature (8310-5) 97.6 [degF] Oxygen Saturation (48951-5) 95 % Respiratory Rate (9279-1) 16 /min 03/29/2024 05:46 PM Body Weight (90244-9) 168 [lb_av] Body Mass Index (88276-0) 29.76 kg/m2 03/28/2024 01:15 PM Body Weight (61954-1) 167.4 [lb_av ] Body Mass Index (21426-9) 29.65 kg/m2 03/27/2024 08:34 AM Body Weight (06853-8) 162.6 [lb_av ] Body Mass Index (08543-8) 28.8 kg/m2 03/26/2024 03:00 PM Body Weight (36547-2) 162.2 [lb_av ] Body Mass Index (39638-2) 28.73 kg/m2 03/25/2024 11:31 AM Body Weight (26406-8) 162 [lb_av] Body Mass Index (59277-8) 28.69 kg/m2 03/24/2024 11:29 PM Temperature (8310-5) 99.3 [degF] 03/24/2024 03:21 PM Body Weight (71497-7) 163.1 [lb_av ] Body Mass Index (61360-2) 28.89 kg/m2 03/24/2024 10:42 AM Temperature (8310-5) 99.9 [degF] 2024 10:56 PM Temperature (8310-5) 98.3 [degF] 2024 09:53 AM Temperature (8310-5) 98.6 [degF] Oxygen Saturation (26683-8) 93 % Respiratory Rate (9279-1) 16 /min 2024 09:49 AM Temperature (8310-5) 98.6 [degF] Body Weight (72391-1) 163.2 [lb_av] Body Mass Index (26151-1) 28.91 kg/m2 03/22/2024 09:01 AM Body Weight (20824-6) 162.6 [lb_av ] Body Mass Index (12723-1) 28.8 kg/m2 03/21/2024 12:18 PM Body Weight (12855-4) 164.8 [lb_av ] Body Mass Index (29387-4) 29.19 kg/m2 03/19/2024 06:59 PM Body Weight (09148-8) 166.2 [lb_av ] Body Mass Index (46103-3) 29.44 kg/m2 03/16/2024 11:24 AM Body Weight (66449-2) 163.4 [lb_av ] Body Mass Index (04123-8) 28.94 kg/m2 03/16/2024 09:27 AM Oxygen Saturation (36193-8) 98 % Respiratory Rate (9279-1) 16 /min 03/14/2024 10:19 AM Body Weight (69886-4) 161.8 [lb_av ] Body Mass Index (84785-9) 28.66 kg/m2 03/13/2024 04:14 PM Body Weight (60160-1) 161 [lb_av] Body Mass Index (94191-9) 28.52 kg/m2 03/12/2024 04:00 PM Body Weight (47088-6) 161.2 [lb_av ] Body Mass Index (78646-2) 28.55 kg/m2 03/11/2024 10:34 AM Body Weight (73052-5) 161.4 [lb_av ] Body Mass Index (24911-0) 28.59 kg/m2 03/10/2024 03:31 PM Body Weight (38336-3) 162.8 [lb_av ] Body Mass Index (66818-9) 28.84 kg/m2 03/09/2024 12:09 PM Body Weight (93216-1) 164.4 [lb_av ] Body Mass Index (04501-5) 29.12 kg/m2 03/09/2024 09:29 AM Oxygen Saturation (62295-1) 92 % Respiratory Rate (9279-1) 18 /min 03/08/2024 04:12 PM Body Weight (97407-4) 165 [lb_av] Body Mass Index (48523-0) 29.23 kg/m2 03/07/2024 08:59 AM Body Weight (76571-7) 165.4 [lb_av ] Body Mass Index (35599-0) 29.3 kg/m2 03/06/2024 03:40 PM Body Weight (01629-6) 164.8 [lb_av ] Body Mass Index (21705-1) 29.19 kg/m2 03/05/2024 04:32 PM Body Weight (70267-7) 165.9 [lb_av ] Body Mass Index (89157-3) 29.38 kg/m2 03/04/2024 03:01 PM Body Weight (31940-8) 165.6 [lb_av ] Body Mass Index (51311-6) 29.33 kg/m2 03/03/2024 08:45 AM Body Weight (70556-9) 163 [lb_av] Body Mass Index (16690-8) 28.87 kg/m2 03/02/2024 10:30 AM Oxygen Saturation (16657-5) 98 % Respiratory Rate (9279-1) 17 /min Body Weight (16153-1) 162.2 [lb_av] Body Mass Index (78876-7) 28.73 kg/m2 02/29/2024 12:55 PM Body Weight (15896-2) 165.8 [lb_av ] Body Mass Index (73622-7) 29.37 kg/m2 02/28/2024 11:25 AM Body Weight (65272-1) 163.6 [lb_av ] Body Mass Index (34925-5) 28.98 kg/m2 02/27/2024 04:11 PM Body Weight (41945-3) 163 [lb_av] Body Mass Index (90378-1) 28.87 kg/m2 02/26/2024 10:53 AM Body Weight (44685-2) 163 [lb_av] Body Mass Index (59334-4) 28.87 kg/m2 02/25/2024 10:12 AM Body Weight (62078-6) 163.2 [lb_av ] Body Mass Index (96283-9) 28.91 kg/m2 02/24/2024 02:20 PM Body Weight (62507-5) 163 [lb_av] Body Mass Index (64516-1) 28.87 kg/m2 02/24/2024 02:13 PM Oxygen Saturation (16393-4) 97 % Respiratory Rate (9279-1) 16 /min 02/23/2024 07:39 AM Body Weight (62737-0) 162.4 [lb_av ] Body Mass Index (06476-8) 28.76 kg/m2 02/22/2024 10:03 AM Body Weight (84307-2) 163.4 [lb_av ] Body Mass Index (74029-8) 28.94 kg/m2 02/21/2024 02:30 PM Body Weight (30391-3) 162.8 [lb_av ] Body Mass Index (11100-8) 28.84 kg/m2 02/20/2024 11:21 AM Body Weight (49533-7) 162.2 [lb_av ] Body Mass Index (59530-9) 28.73 kg/m2 02/19/2024 12:23 PM Body Weight (86457-5) 165 [lb_av] Body Mass Index (53071-4) 29.23 kg/m2 02/18/2024 03:11 PM Body Weight (94307-9) 163.6 [lb_av ] Body Mass Index (15019-7) 28.98 kg/m2 02/17/2024 11:16 AM Body Weight (21770-4) 159.6 [lb_av ] Body Mass Index (68882-7) 28.27 kg/m2 02/15/2024 09:03 AM Body Weight (90428-1) 160.8 [lb_av ] Body Mass Index (20191-7) 28.48 kg/m2 02/14/2024 02:16 PM Body Weight (34621-8) 160 [lb_av] Body Mass Index (46151-7) 28.34 kg/m2 02/13/2024 03:11 PM Body Weight (16971-8) 158.9 [lb_av ] Body Mass Index (57736-2) 28.14 kg/m2 02/12/2024 09:00 AM Body Weight (15393-5) 158.4 [lb_av ] Body Mass Index (84678-5) 28.06 kg/m2 02/11/2024 08:32 AM Body Weight (87233-0) 158.8 [lb_av ] Body Mass Index (63572-8) 28.13 kg/m2 02/10/2024 09:48 AM Body Weight (56525-7) 159.2 [lb_av ] Body Mass Index (74793-1) 28.2 kg/m2 02/09/2024 11:46 AM Body Weight (76754-0) 159.6 [lb_av ] Body Mass Index (74666-9) 28.27 kg/m2 02/08/2024 09:52 AM Body Weight (99978-8) 162.6 [lb_av ] Body Mass Index (76860-3) 28.8 kg/m2 02/07/2024 05:44 PM Body Weight (87776-3) 162.1 [lb_av ] Body Mass Index (43023-5) 28.71 kg/m2 02/06/2024 01:55 PM Body Weight (50093-9) 162.6 [lb_av ] Body Mass Index (16493-5) 28.8 kg/m2 02/05/2024 04:29 PM Body Weight (60973-6) 162.2 [lb_av ] Body Mass Index (74003-3) 28.73 kg/m2 02/04/2024 12:04 PM Body Weight (63313-8) 160 [lb_av] Body Mass Index (82709-9) 28.34 kg/m2 09/23/2018 09:58 AM Body Height (8302-2) 63 [in_us] 05/04/2024 09:36 AM Temperature (8310-5) 98 [degF] Oxygen Saturation (34682-6) 93 % Respiratory Rate (9279-1) 16 /min Heart Rate (8867-4) 83 /min Body Weight (48311-0) 163.2 [lb_av] Body Mass Index (83631-3) 28.91 kg/m2 05/04/2024 06:52 AM Heart Rate (8867-4) 83 /min Blood Pressure Systolic (8480-6) 171 mm[Hg] Blood Pressure Diastolic (8462-4) 68 mm[Hg] 05/04/2024 06:55 PM Heart Rate (8867-4) 82 /min Blood Pressure Systolic (8480-6) 136 mm[Hg] Blood Pressure Diastolic (8462-4) 71 mm[Hg] 05/06/2024 11:20 AM Body Weight (32321-1) 166.4 [lb_av ] Body Mass Index (81225-1) 29.47 kg/m2 05/06/2024 08:22 AM Heart Rate (8867-4) 79 /min Blood Pressure Systolic (8480-6) 118 mm[Hg] Blood Pressure Diastolic (8462-4) 69 mm[Hg] 05/05/2024 06:54 PM Heart Rate (8867-4) 76 /min Blood Pressure Systolic (8480-6) 129 mm[Hg] Blood Pressure Diastolic (8462-4) 68 mm[Hg] 05/05/2024 09:20 AM Body Weight (75212-6) 163.2 [lb_av ] Body Mass Index (21093-6) 28.91 kg/m2 05/05/2024 08:53 AM Heart Rate [...] 73 mm[Hg] 05/08/2024 01:17 PM Body Weight (61987-2) 166.2 [lb_av ] Body Mass Index (26634-8) 29.44 kg/m2 05/08/2024 11:27 AM Heart Rate (8867-4) 77 /min Blood Pressure Systolic (8480-6) 133 mm[Hg] Blood Pressure Diastolic (8462-4) 68 mm[Hg] 05/07/2024 07:02 PM Heart Rate (8867-4) 71 /min Blood Pressure Systolic (8480-6) 122 mm[Hg] Blood Pressure Diastolic (8462-4) 64 mm[Hg] 05/07/2024 04:18 PM Body Weight (96963-7) 166 [lb_av] Body Mass Index (55745-5) 29.4 kg/m2 05/08/2024 07:19 PM Heart Rate [...] 68 mm[Hg] 05/09/2024 08:48 AM Body Weight (07793-8) 163.2 [lb_av ] Body Mass Index (00229-8) 28.91 kg/m2 05/09/2024 08:12 AM Heart Rate (8867-4) 83 /min Blood Pressure Systolic (8480-6) 113 mm[Hg] Blood Pressure Diastolic (8462-4) 53 mm[Hg] 05/10/2024 07:29 PM Heart Rate (8867-4) 86 /min Blood Pressure Systolic (8480-6) 156 mm[Hg] Blood Pressure Diastolic (8462-4) 93 mm[Hg] 05/10/2024 10:17 AM Body Weight (71445-1) 161.8 [lb_av ] Body Mass Index (72353-4) 28.66 kg/m2 05/12/2024 06:29 AM Heart Rate (8867-4) 76 /min Blood Pressure Systolic (8480-6) 112 mm[Hg] Blood Pressure Diastolic (8462-4) 54 mm[Hg] 05/11/2024 07:29 PM Heart Rate (8867-4) 85 /min Blood Pressure Systolic (8480-6) 158 mm[Hg] Blood Pressure Diastolic (8462-4) 80 mm[Hg] 05/11/2024 12:21 PM Temperature (8310-5) 98.5 [degF] Oxygen Saturation (70164-5) 94 % Respiratory Rate (9279-1) 16 /min Heart Rate (8867-4) 89 /min Blood Pressure Systolic (8480-6) 157 mm[Hg] Blood Pressure Diastolic (8462-4) 85 mm[Hg] Body Weight (91479-3) 163.2 [lb_av] Body Mass Index (04331-6) 28.91 kg/m2 05/12/2024 08:00 PM Heart Rate (8867-4) 75 /min Blood Pressure Systolic (8480-6) 127 mm[Hg] Blood Pressure Diastolic (8462-4) 60 mm[Hg] 05/12/2024 10:30 AM Body Weight (74299-5) 163.2 [lb_av ] Body Mass Index (11853-4) 28.91 kg/m2 05/13/2024 07:07 PM Heart Rate (8867-4) 71 /min Blood Pressure Systolic (8480-6) 122 mm[Hg] Blood Pressure Diastolic (8462-4) 68 mm[Hg] 05/13/2024 11:26 AM Body Weight (83329-6) 163.2 [lb_av ] Body Mass Index (84309-6) 28.91 kg/m2 05/13/2024 08:15 AM Heart Rate (8867-4) 74 /min Blood Pressure Systolic (8480-6) 118 mm[Hg] Blood Pressure Diastolic (8462-4) 64 mm[Hg] 05/14/2024 02:15 PM Body Weight (76617-6) 165.8 [lb_av ] Body Mass Index (86337-7) 29.37 kg/m2 05/14/2024 09:10 AM Heart Rate [...] 62 mm[Hg] 05/15/2024 04:20 PM Body Weight (75079-5) 165.2 [lb_av ] Body Mass Index (14587-0) 29.26 kg/m2 05/15/2024 08:18 AM Heart Rate (8867-4) 77 /min Blood Pressure Systolic (8480-6) 145 mm[Hg] Blood Pressure Diastolic (8462-4) 64 mm[Hg] 05/16/2024 08:00 AM Body Weight (06329-3) 164.2 [lb_av ] Body Mass Index (41085-6) 29.08 kg/m2 05/16/2024 06:25 AM Heart Rate (8867-4) 73 /min Blood Pressure Systolic (8480-6) 119 mm[Hg] Blood Pressure Diastolic (8462-4) 63 mm[Hg] 05/17/2024 09:38 AM Body Weight (61774-9) 164.2 [lb_av ] Body Mass Index (05305-7) 29.08 kg/m2 05/17/2024 08:26 AM Heart Rate (8867-4) 78 /min Blood Pressure Systolic (8480-6) 140 mm[Hg] Blood Pressure Diastolic (8462-4) 71 mm[Hg] 05/16/2024 07:56 PM Heart Rate (8867-4) 73 /min Blood Pressure Systolic (8480-6) 143 mm[Hg] Blood Pressure Diastolic (8462-4) 63 mm[Hg] 05/18/2024 08:49 AM Body Weight (40743-0) 164 [lb_av] Body Mass Index (72112-0) 29.05 kg/m2 05/18/2024 06:45 AM Heart Rate (8867-4) 78 /min Blood Pressure Systolic (8480-6) 120 mm[Hg] Blood Pressure Diastolic (8462-4) 58 mm[Hg] 05/18/2024 06:42 AM Temperature (8310-5) 98.7 [degF] Oxygen Saturation (16655-3) 97 % Respiratory Rate (9279-1) 16 /min [...] 64 mm[Hg] 05/19/2024 04:56 PM Body Weight (48459-2) 163 [lb_av] Body Mass Index (81745-9) 28.87 kg/m2 05/19/2024 08:28 AM Heart Rate (8867-4) 77 /min Blood Pressure Systolic (8480-6) 142 mm[Hg] Blood Pressure Diastolic (8462-4) 69 mm[Hg] 05/20/2024 09:08 AM Body Weight (57255-4) 164.6 [lb_av ] Body Mass Index (56704-8) 29.15 kg/m2 05/20/2024 06:37 AM Heart Rate (8867-4) 78 /min Blood Pressure Systolic (8480-6) 116 mm[Hg] Blood Pressure Diastolic (8462-4) 52 mm[Hg] 05/21/2024 11:38 AM Body Weight (00361-8) 165 [lb_av] Body Mass Index (70650-4) 29.23 kg/m2 05/20/2024 07:07 PM Heart Rate [...] 66 mm[Hg] 05/22/2024 06:56 PM Body Weight (60279-4) 165.5 [lb_av ] Body Mass Index (93186-3) 29.31 kg/m2 05/22/2024 06:45 AM Heart Rate (8867-4) 71 /min Blood Pressure Systolic (8480-6) 132 mm[Hg] Blood Pressure Diastolic (8462-4) 63 mm[Hg] 05/23/2024 12:10 PM Body Weight (83198-7) 165 [lb_av] Body Mass Index (01230-5) 29.23 kg/m2 05/24/2024 07:30 AM Heart Rate (8867-4) 84 /min Blood Pressure Systolic (8480-6) 122 mm[Hg] Blood Pressure Diastolic (8462-4) 69 mm[Hg] 05/24/2024 07:29 AM Body Weight (98384-4) 164.2 [lb_av ] Body Mass Index (59814-7) 29.08 kg/m2 05/23/2024 07:20 PM Heart Rate (8867-4) 89 /min Blood Pressure Systolic (8480-6) 152 mm[Hg] Blood Pressure Diastolic (8462-4) 80 mm[Hg] 05/25/2024 09:51 AM Temperature (8310-5) 100 [degF] Oxygen Saturation (73252-0) 95 % Respiratory Rate (9279-1) 19 /min Heart Rate (8867-4) 81 /min Blood Pressure Systolic (8480-6) 129 mm[Hg] Blood Pressure Diastolic (8462-4) 61 mm[Hg] Body Weight (55656-2) 165 [lb_av] Body Mass Index (03556-0) 29.23 kg/m2 05/25/2024 06:45 AM Heart Rate [...] 83 mm[Hg] 05/26/2024 07:36 AM Body Weight (54190-5) 163.8 [lb_av ] Body Mass Index (00731-8) 29.01 kg/m2 05/26/2024 06:43 AM Heart Rate [...] 64 mm[Hg] 05/27/2024 08:52 AM Body Weight (80217-2) 165.4 [lb_av ] Body Mass Index (48773-6) 29.3 kg/m2 05/27/2024 06:17 AM Heart Rate [...] 73 mm[Hg] 05/28/2024 06:18 PM Body Weight (11797-3) 165.6 [lb_av ] Body Mass Index (67822-2) 29.33 kg/m2 05/29/2024 07:23 PM Heart Rate (8867-4) 71 /min Blood Pressure Systolic (8480-6) 125 mm[Hg] Blood Pressure Diastolic (8462-4) 77 mm[Hg] 05/29/2024 05:42 PM Body Weight (06291-2) 164.2 [lb_av ] Body Mass Index (45829-2) 29.08 kg/m2 05/29/2024 07:30 AM Heart Rate (8867-4) 81 /min Blood Pressure Systolic (8480-6) 117 mm[Hg] Blood Pressure Diastolic (8462-4) 74 mm[Hg] 05/30/2024 04:42 PM Body Weight (00658-2) 166.4 [lb_av ] Body Mass Index (86589-8) 29.47 kg/m2 05/30/2024 06:05 PM Heart Rate (8867-4) 66 /min Blood Pressure Systolic (8480-6) 130 mm[Hg] Blood Pressure Diastolic (8462-4) 80 mm[Hg] 05/30/2024 06:51 AM Heart Rate (8867-4) 78 /min Blood Pressure Systolic (8480-6) 118 mm[Hg] Blood Pressure Diastolic (8462-4) 53 mm[Hg] 05/31/2024 08:20 AM Body Weight (45372-9) 164.2 [lb_av ] Body Mass Index (30883-5) 29.08 kg/m2 05/31/2024 06:20 AM Heart Rate (8867-4) 79 /min Blood Pressure Systolic (8480-6) 128 mm[Hg] Blood Pressure Diastolic (8462-4) 56 mm[Hg] 05/31/2024 06:44 PM Heart Rate (8867-4) 77 /min Blood Pressure Systolic (8480-6) 122 mm[Hg] Blood Pressure Diastolic (8462-4) 28 mm[Hg] 06/01/2024 09:17 AM Temperature (8310-5) 98.9 [degF] Oxygen Saturation (65815-5) 97 % Respiratory Rate (9279-1) 16 /min Heart Rate (8867-4) 76 /min Blood Pressure Systolic (8480-6) 132 mm[Hg] Blood Pressure Diastolic (8462-4) 69 mm[Hg] 06/01/2024 12:18 PM Body Weight (83269-5) 164 [lb_av] Body Mass Index (09684-3) 29.05 kg/m2 06/01/2024 09:16 AM Heart Rate (8867-4) 76 /min Blood Pressure Systolic (8480-6) 132 mm[Hg] Blood Pressure Diastolic (8462-4) 69 mm[Hg] 06/02/2024 02:03 PM Body Weight (30379-9) 164.9 [lb_av ] Body Mass Index (77339-6) 29.21 kg/m2 06/02/2024 06:27 AM Heart Rate [...] 68 mm[Hg] 06/03/2024 04:09 PM Body Weight (68018-3) 165 [lb_av] Body Mass Index (98247-9) 29.23 kg/m2 06/03/2024 07:46 AM Heart Rate (8867-4) 78 /min Blood Pressure Systolic (8480-6) 131 mm[Hg] Blood Pressure Diastolic (8462-4) 67 mm[Hg] 06/04/2024 09:54 AM Body Weight (73572-2) 165.2 [lb_av ] Body Mass Index (82056-8) 29.26 kg/m2 06/04/2024 08:26 AM Heart Rate [...] 93 mm[Hg] 06/05/2024 04:17 PM Body Weight (35743-0) 167.4 [lb_av ] Body Mass Index (19261-9) 29.65 kg/m2 06/05/2024 07:25 PM Heart Rate (8867-4) 79 /min Blood Pressure Systolic (8480-6) 128 mm[Hg] Blood Pressure Diastolic (8462-4) 77 mm[Hg] 06/06/2024 06:35 PM Heart Rate (8867-4) 80 /min Blood Pressure Systolic (8480-6) 144 mm[Hg] Blood Pressure Diastolic (8462-4) 78 mm[Hg] 06/06/2024 09:53 AM Body Weight (44381-6) 168.5 [lb_av ] Body Mass Index (71531-5) 29.85 kg/m2 06/06/2024 06:53 AM Heart Rate (8867-4) 83 /min Blood Pressure Systolic (8480-6) 117 mm[Hg] Blood Pressure Diastolic (8462-4) 58 mm[Hg] 06/07/2024 09:12 AM Body Weight (35508-5) 165.4 [lb_av ] Body Mass Index (87173-8) 29.3 kg/m2 06/07/2024 06:36 AM Heart Rate (8867-4) 75 /min Blood Pressure Systolic (8480-6) 115 mm[Hg] Blood Pressure Diastolic (8462-4) 54 mm[Hg] 06/08/2024 01:27 PM Body Weight (06729-0) 166.8 [lb_av ] Body Mass Index (36383-6) 29.54 kg/m2 06/08/2024 09:41 AM Temperature (8310-5) 98.2 [degF] Oxygen Saturation (05818-5) 97 % Respiratory Rate (9279-1) 18 /min [...] 69 mm[Hg] 06/09/2024 01:00 PM Body Weight (10157-3) 166.4 [lb_av ] Body Mass Index (77551-3) 29.47 kg/m2 06/09/2024 09:25 AM Heart Rate [...] 58 mm[Hg] 06/10/2024 08:20 AM Body Weight (02122-6) 167.4 [lb_av ] Body Mass Index (48491-8) 29.65 kg/m2 06/10/2024 06:55 AM Heart Rate [...] 63 mm[Hg] 06/11/2024 11:55 AM Body Weight (42244-4) 166.6 [lb_av ] Body Mass Index (86236-4) 29.51 kg/m2 06/11/2024 07:09 AM Heart Rate [...] 63 mm[Hg] 06/12/2024 02:58 PM Body Weight (46579-3) 167.1 [lb_av ] Body Mass Index (90328-8) 29.6 kg/m2 06/13/2024 07:10 PM Heart Rate (8867-4) 73 /min Blood Pressure Systolic (8480-6) 152 mm[Hg] Blood Pressure Diastolic (8462-4) 73 mm[Hg] 06/13/2024 04:50 PM Body Weight (54767-6) 167 [lb_av] Body Mass Index (59244-1) 29.58 kg/m2 06/13/2024 08:25 AM Body Weight (05127-3) 167 [lb_av] Body Mass Index (86792-3) 29.58 kg/m2 06/13/2024 07:25 AM Heart Rate (8867-4) 75 /min Blood Pressure Systolic (8480-6) 118 mm[Hg] Blood Pressure Diastolic (8462-4) 59 mm[Hg] 06/14/2024 03:23 PM Body Weight (60249-9) 167.2 [lb_av ] Body Mass Index (49039-2) 29.61 kg/m2 06/14/2024 08:42 AM Heart Rate (8867-4) 77 /min Blood Pressure Systolic (8480-6) 136 mm[Hg] Blood Pressure Diastolic (8462-4) 67 mm[Hg] 06/15/2024 09:53 AM Body Weight (38869-4) 167.8 [lb_av ] Body Mass Index (33652-9) 29.72 kg/m2 06/15/2024 09:51 AM Temperature (8310-5) 98.4 [degF] Oxygen Saturation (03534-3) 93 % Respiratory Rate (9279-1) 17 /min Heart Rate (8867-4) 94 /min 06/15/2024 09:50 AM Heart Rate (8867-4) 94 /min Blood Pressure Systolic (8480-6) 120 mm[Hg] Blood Pressure Diastolic (8462-4) 64 mm[Hg] 06/15/2024 08:12 AM Body Weight (99905-7) 167.8 [lb_av ] Body Mass Index (23030-9) 29.72 kg/m2 06/14/2024 07:00 PM Heart Rate (8867-4) 79 /min Blood Pressure Systolic (8480-6) 162 mm[Hg] Blood Pressure Diastolic (8462-4) 75 mm[Hg] 06/16/2024 09:07 AM Body Weight (62907-7) 167.9 [lb_av ] Body Mass Index (44811-4) 29.74 kg/m2 06/16/2024 08:35 AM Heart Rate (8867-4) 85 /min Blood Pressure Systolic (8480-6) 138 mm[Hg] Blood Pressure Diastolic (8462-4) 76 mm[Hg] 06/15/2024 06:46 PM Heart Rate (8867-4) 80 /min Blood Pressure Systolic (8480-6) 163 mm[Hg] Blood Pressure Diastolic (8462-4) 74 mm[Hg] 06/17/2024 09:36 AM Body Weight (88831-9) 168 [lb_av] Body Mass Index (83257-1) 29.76 kg/m2 06/17/2024 08:16 AM Heart Rate [...] Pressure Diastolic (8462-4) 61 mm[Hg] Body Weight (33309-7) 168.8 [lb_av] Body Mass Index (51707-9) 29.9 kg/m2 06/18/2024 07:15 AM Heart Rate [...] 63 mm[Hg] 06/19/2024 09:43 AM Body Weight (93036-6) 167.8 [lb_av ] Body Mass Index (08577-8) 29.72 kg/m2 06/20/2024 05:38 PM Body Weight (23235-5) 167.4 [lb_av ] Body Mass Index (59423-3) 29.65 kg/m2 06/20/2024 06:54 AM Heart Rate (8867-4) 79 /min Blood Pressure Systolic (8480-6) 121 mm[Hg] Blood Pressure Diastolic (8462-4) 55 mm[Hg] 06/21/2024 09:19 AM Body Weight (33447-1) 167.8 [lb_av ] Body Mass Index (19748-8) 29.72 kg/m2 06/21/2024 06:43 PM Heart Rate [...] 58 mm[Hg] 06/23/2024 04:15 PM Body Weight (78935-8) 170 [lb_av] Body Mass Index (59588-2) 30.11 kg/m2 06/23/2024 11:58 AM Heart Rate (8867-4) 87 /min Blood Pressure Systolic (8480-6) 127 mm[Hg] Blood Pressure Diastolic (8462-4) 61 mm[Hg] 06/22/2024 06:49 PM Temperature (8310-5) 97.1 [degF] Oxygen Saturation (05252-9) 96 % Respiratory Rate (9279-1) 16 /min Heart Rate (8867-4) 81 /min Blood Pressure Systolic (8480-6) 109 mm[Hg] Blood Pressure Diastolic (8462-4) 58 mm[Hg] 06/22/2024 06:48 PM Body Weight (27247-9) 170.4 [lb_av ] Body Mass Index (18487-7) 30.18 kg/m2 06/22/2024 06:43 PM Heart Rate (8867-4) 82 /min Blood Pressure Systolic (8480-6) 114 mm[Hg] Blood Pressure Diastolic (8462-4) 69 mm[Hg] 06/24/2024 04:03 PM Body Weight (30218-4) 170.1 [lb_av ] Body Mass Index (35079-4) 30.13 kg/m2 06/24/2024 06:43 AM Heart Rate (8867-4) 76 /min Blood Pressure Systolic (8480-6) 113 mm[Hg] Blood Pressure Diastolic (8462-4) 64 mm[Hg] 06/23/2024 07:04 PM Heart Rate (8867-4) 80 /min Blood Pressure Systolic (8480-6) 130 mm[Hg] Blood Pressure Diastolic (8462-4) 66 mm[Hg] 06/25/2024 01:27 PM Body Weight (82557-0) 171.4 [lb_av ] Body Mass Index (19537-8) 30.36 kg/m2 06/25/2024 07:47 AM Heart Rate [...] 69 mm[Hg] 06/26/2024 03:44 PM Body Weight (63735-5) 171.9 [lb_av ] Body Mass Index (14517-7) 30.45 kg/m2 06/27/2024 06:22 PM Heart Rate (8867-4) 80 /min Blood Pressure Systolic (8480-6) 130 mm[Hg] Blood Pressure Diastolic (8462-4) 70 mm[Hg] 06/27/2024 11:18 AM Body Weight (82877-8) 167.2 [lb_av ] Body Mass Index (01457-6) 29.61 kg/m2 06/27/2024 07:11 AM Heart Rate (8867-4) 83 /min Blood Pressure Systolic (8480-6) 124 mm[Hg] Blood Pressure Diastolic (8462-4) 60 mm[Hg] 06/28/2024 08:38 AM Body Weight (62456-0) 167 [lb_av] Body Mass Index (56248-3) 29.58 kg/m2 06/28/2024 07:56 AM Heart Rate (8867-4) 73 /min Blood Pressure Systolic (8480-6) 112 mm[Hg] Blood Pressure Diastolic (8462-4) 51 mm[Hg] 06/29/2024 08:53 AM Temperature (8310-5) 98.3 [degF] Oxygen Saturation (02794-9) 93 % Respiratory Rate (9279-1) 16 /min Heart Rate (8867-4) 80 /min 06/29/2024 08:12 AM Heart Rate (8867-4) 80 /min Blood Pressure Systolic (8480-6) 135 mm[Hg] Blood Pressure Diastolic (8462-4) 85 mm[Hg] 06/29/2024 10:50 AM Body Weight (81092-1) 168.2 [lb_av ] Body Mass Index (33938-8) 29.79 kg/m2 06/28/2024 06:43 PM Heart Rate (8867-4) 71 /min Blood Pressure Systolic (8480-6) 163 mm[Hg] Blood Pressure Diastolic (8462-4) 70 mm[Hg] 06/29/2024 06:26 PM Heart Rate (8867-4) 76 /min Blood Pressure Systolic (8480-6) 150 mm[Hg] Blood Pressure Diastolic (8462-4) 74 mm[Hg] 06/30/2024 03:13 PM Body Weight (48314-0) 168 [lb_av] Body Mass Index (77573-2) 29.76 kg/m2 06/30/2024 06:46 AM Heart Rate (8867-4) 79 /min Blood Pressure Systolic (8480-6) 132 mm[Hg] Blood Pressure Diastolic (8462-4) 65 mm[Hg] 07/01/2024 12:35 PM Body Weight (02014-6) 172.4 [lb_av ] Body Mass Index (53457-7) 30.54 kg/m2 07/01/2024 08:08 AM Heart Rate (8867-4) 77 /min Blood Pressure Systolic (8480-6) 119 mm[Hg] Blood Pressure Diastolic (8462-4) 74 mm[Hg] 06/30/2024 08:57 PM Heart Rate (8867-4) 81 /min Blood Pressure Systolic (8480-6) 127 mm[Hg] Blood Pressure Diastolic (8462-4) 69 mm[Hg] 07/02/2024 03:08 PM Body Weight (04808-1) 170.1 [lb_av ] Body Mass Index (75964-2) 30.13 kg/m2 07/02/2024 07:50 AM Heart Rate [...] 93 mm[Hg] 07/03/2024 08:49 AM Body Weight (97647-9) 170.6 [lb_av ] Body Mass Index (28843-8) 30.22 kg/m2 07/03/2024 07:34 AM Heart Rate (8867-4) 83 /min Blood Pressure Systolic (8480-6) 104 mm[Hg] Blood Pressure Diastolic (8462-4) 65 mm[Hg] 07/04/2024 09:56 AM Body Weight (78543-0) 171 [lb_av] Body Mass Index (60119-6) 30.29 kg/m2 07/04/2024 08:45 AM Heart Rate [...] 69 mm[Hg] 07/05/2024 09:48 AM Body Weight (56618-2) 172.2 [lb_av ] Body Mass Index (07055-5) 30.5 kg/m2 07/04/2024 06:24 PM Heart Rate (8867-4) 80 /min Blood Pressure Systolic (8480-6) 138 mm[Hg] Blood Pressure Diastolic (8462-4) 74 mm[Hg] 07/06/2024 07:00 PM Heart Rate (8867-4) 80 /min Blood Pressure Systolic (8480-6) 132 mm[Hg] Blood Pressure Diastolic (8462-4) 63 mm[Hg] 07/06/2024 12:14 PM Temperature (8310-5) 97.7 [degF] Oxygen Saturation (75527-3) 98 % Respiratory Rate (9279-1) 16 /min Heart Rate (8867-4) 84 /min Blood Pressure Systolic (8480-6) 134 mm[Hg] Blood Pressure Diastolic (8462-4) 66 mm[Hg] Body Weight (94784-1) 169.2 [lb_av] Body Mass Index (51225-0) 29.97 kg/m2 07/06/2024 09:28 AM Heart Rate (8867-4) 84 /min Blood Pressure Systolic (8480-6) 134 mm[Hg] Blood Pressure Diastolic (8462-4) 64 mm[Hg] 07/07/2024 07:34 PM Heart Rate (8867-4) 74 /min Blood Pressure Systolic (8480-6) 143 mm[Hg] Blood Pressure Diastolic (8462-4) 74 mm[Hg] 07/07/2024 01:32 PM Body Weight (42856-1) 170 [lb_av] Body Mass Index (67567-9) 30.11 kg/m2 07/07/2024 07:30 AM Heart Rate [...] 70 mm[Hg] 07/08/2024 05:22 PM Body Weight (54075-3) 171 [lb_av] Body Mass Index (98717-0) 30.29 kg/m2 07/09/2024 07:13 PM Heart Rate (8867-4) 77 /min Blood Pressure Systolic (8480-6) 125 mm[Hg] Blood Pressure Diastolic (8462-4) 51 mm[Hg] 07/09/2024 03:08 PM Body Weight (35167-9) 171.1 [lb_av ] Body Mass Index (86991-0) 30.31 kg/m2 07/09/2024 09:02 AM Heart Rate [...] 66 mm[Hg] 07/10/2024 04:16 PM Body Weight (45970-8) 171 [lb_av] Body Mass Index (00659-2) 30.29 kg/m2 07/11/2024 08:25 PM Heart Rate (8867-4) 61 /min Blood Pressure Systolic (8480-6) 115 mm[Hg] Blood Pressure Diastolic (8462-4) 67 mm[Hg] 07/11/2024 10:17 AM Body Weight (68093-1) 170.8 [lb_av ] Body Mass Index (53004-3) 30.25 kg/m2 07/11/2024 08:08 AM Heart Rate (8867-4) 74 /min Blood Pressure Systolic (8480-6) 139 mm[Hg] Blood Pressure Diastolic (8462-4) 72 mm[Hg] 07/12/2024 07:15 AM Heart Rate (8867-4) 78 /min Blood Pressure Systolic (8480-6) 152 mm[Hg] Blood Pressure Diastolic (8462-4) 77 mm[Hg] 07/13/2024 12:52 PM Body Weight (61150-9) 170 [lb_av] Body Mass Index (28806-3) 30.11 kg/m2 07/13/2024 10:12 AM Temperature (8310-5) 98.6 [degF] Oxygen Saturation (30301-3) 96 % Respiratory Rate (9279-1) 20 /min [...] 66 mm[Hg] 07/12/2024 06:19 PM Body Weight (23843-8) 170.7 [lb_av ] Body Mass Index (65874-7) 30.23 kg/m2 07/14/2024 11:01 AM Body Weight (22949-6) 170.1 [lb_av ] Body Mass Index (22192-0) 30.13 kg/m2 07/14/2024 07:20 AM Heart Rate (8867-4) 75 /min Blood Pressure Systolic (8480-6) 120 mm[Hg] Blood Pressure Diastolic (8462-4) 63 mm[Hg] 07/13/2024 07:45 PM Heart Rate (8867-4) 73 /min Blood Pressure Systolic (8480-6) 155 mm[Hg] Blood Pressure Diastolic (8462-4) 76 mm[Hg] 07/15/2024 01:21 PM Body Weight (57112-8) 170.2 [lb_av ] Body Mass Index (28871-5) 30.15 kg/m2 07/15/2024 07:16 AM Heart Rate [...] 64 mm[Hg] 07/16/2024 03:41 PM Body Weight (83460-9) 170.3 [lb_av ] Body Mass Index (38606-1) 30.16 kg/m2 07/16/2024 08:58 AM Heart Rate (8867-4) 81 /min Blood Pressure Systolic (8480-6) 118 mm[Hg] Blood Pressure Diastolic (8462-4) 87 mm[Hg] 07/17/2024 10:44 AM Body Weight (51711-8) 170.2 [lb_av ] Body Mass Index (58481-0) 30.15 kg/m2 07/17/2024 07:05 AM Heart Rate [...] 80 mm[Hg] 07/18/2024 10:25 AM Body Weight (20319-9) 167.6 [lb_av ] Body Mass Index (09378-8) 29.69 kg/m2 07/18/2024 09:04 AM Heart Rate (8867-4) 80 /min Blood Pressure Systolic (8480-6) 137 mm[Hg] Blood Pressure Diastolic (8462-4) 68 mm[Hg] 07/19/2024 09:47 AM Heart Rate (8867-4) 78 /min Blood Pressure Systolic (8480-6) 110 mm[Hg] Blood Pressure Diastolic (8462-4) 57 mm[Hg] Body Weight (66844-5) 167.2 [lb_av] Body Mass Index (96168-3) 29.61 kg/m2 07/19/2024 07:31 PM Heart Rate (8867-4) 85 /min Blood Pressure Systolic (8480-6) 123 mm[Hg] Blood Pressure Diastolic (8462-4) 68 mm[Hg] 07/20/2024 07:31 PM Heart Rate (8867-4) 75 /min Blood Pressure Systolic (8480-6) 148 mm[Hg] Blood Pressure Diastolic (8462-4) 71 mm[Hg] 07/20/2024 11:07 AM Body Weight (66206-3) 167.4 [lb_av ] Body Mass Index (29126-3) 29.65 kg/m2 07/20/2024 09:01 AM Temperature (8310-5) 97.4 [degF] Oxygen Saturation (89139-9) 92 % Respiratory Rate (9279-1) 22 /min [...] 63 mm[Hg] 07/22/2024 04:18 PM Body Weight (29630-1) 170.6 [lb_av ] Body Mass Index (57689-5) 30.22 kg/m2 07/22/2024 08:38 AM Heart Rate (8867-4) 93 /min Blood Pressure Systolic (8480-6) 163 mm[Hg] Blood Pressure Diastolic (8462-4) 59 mm[Hg] 07/23/2024 01:56 PM Body Weight (08225-0) 170.4 [lb_av ] Body Mass Index (88457-4) 30.18 kg/m2 07/23/2024 08:02 AM Heart Rate [...] 73 mm[Hg] 07/24/2024 04:52 PM Body Weight (45690-8) 171 [lb_av] Body Mass Index (55790-9) 30.29 kg/m2 07/25/2024 06:40 PM Heart Rate (8867-4) 80 /min Blood Pressure Systolic (8480-6) 126 mm[Hg] Blood Pressure Diastolic (8462-4) 76 mm[Hg] 07/25/2024 12:34 PM Body Weight (57092-8) 172.4 [lb_av ] Body Mass Index (16883-2) 30.54 kg/m2 07/25/2024 08:29 AM Heart Rate (8867-4) 77 /min Blood Pressure Systolic (8480-6) 124 mm[Hg] Blood Pressure Diastolic (8462-4) 63 mm[Hg] 07/26/2024 07:01 AM Heart Rate (8867-4) 76 /min Blood Pressure Systolic (8480-6) 131 mm[Hg] Blood Pressure Diastolic (8462-4) 76 mm[Hg] 07/27/2024 10:04 AM Body Weight (01404-1) 171.4 [lb_av ] Body Mass Index (82081-4) 30.36 kg/m2 07/27/2024 09:35 AM Temperature (8310-5) 98.4 [degF] Oxygen Saturation (57619-2) 99 % Respiratory Rate (9279-1) 16 /min Heart Rate (8867-4) 80 /min Blood Pressure Systolic (8480-6) 132 mm[Hg] Blood Pressure Diastolic (8462-4) 68 mm[Hg] 07/26/2024 07:20 PM Heart Rate (8867-4) 72 /min Blood Pressure Systolic (8480-6) 142 mm[Hg] Blood Pressure Diastolic (8462-4) 69 mm[Hg] 07/26/2024 05:50 PM Body Weight (82148-8) 168.6 [lb_av ] Body Mass Index (29405-8) 29.86 kg/m2 07/28/2024 09:55 AM Body Weight (91376-8) 169.4 [lb_av ] Body Mass Index (39157-1) 30 kg/m2 07/28/2024 06:38 AM Heart Rate (8867-4) 78 /min Blood Pressure Systolic (8480-6) 117 mm[Hg] Blood Pressure Diastolic (8462-4) 52 mm[Hg] 07/27/2024 06:34 PM Heart Rate (8867-4) 74 /min Blood Pressure Systolic (8480-6) 153 mm[Hg] Blood Pressure Diastolic (8462-4) 74 mm[Hg] 07/29/2024 10:00 AM Body Weight (25357-6) 170 [lb_av] Body Mass Index (58474-3) 30.11 kg/m2 07/29/2024 09:37 AM Heart Rate [...] 47 mm[Hg] 07/30/2024 03:46 PM Body Weight (01714-3) 171.2 [lb_av ] Body Mass Index (59054-6) 30.32 kg/m2 07/30/2024 07:58 AM Heart Rate (8867-4) 78 /min Blood Pressure Systolic (8480-6) 114 mm[Hg] Blood Pressure Diastolic (8462-4) 63 mm[Hg] 07/31/2024 07:09 AM Heart Rate (8867-4) 78 /min Blood Pressure Systolic (8480-6) 136 mm[Hg] Blood Pressure Diastolic (8462-4) 53 mm[Hg] 07/31/2024 07:07 AM Body Weight (21876-6) 169.8 [lb_av ] Body Mass Index (82058-5) 30.08 kg/m2 07/31/2024 06:55 PM Heart Rate (8867-4) 73 /min Blood Pressure Systolic (8480-6) 124 mm[Hg] Blood Pressure Diastolic (8462-4) 65 mm[Hg] 08/01/2024 07:14 PM Heart Rate (8867-4) 80 /min Blood Pressure Systolic (8480-6) 138 mm[Hg] Blood Pressure Diastolic (8462-4) 80 mm[Hg] 08/01/2024 11:41 AM Body Weight (26602-2) 169.8 [lb_av ] Body Mass Index (32230-8) 30.08 kg/m2 08/01/2024 09:03 AM Heart Rate (8867-4) 82 /min Blood Pressure Systolic (8480-6) 113 mm[Hg] Blood Pressure Diastolic (8462-4) 56 mm[Hg] 08/02/2024 11:33 AM Body Weight (35702-5) 169.6 [lb_av ] Body Mass Index (08200-3) 30.04 kg/m2 08/02/2024 07:45 AM Heart Rate [...] AM Temperature (8310-5) 97.9 [degF] Oxygen Saturation (99921-7) 98 % Respiratory Rate (9279-1) 16 /min Heart Rate (8867-4) 81 /min 08/03/2024 04:44 PM Body Weight (97439-7) 171.2 [lb_av ] Body Mass Index (05452-9) 30.32 kg/m2 08/03/2024 07:45 PM Heart Rate [...] 58 mm[Hg] 08/04/2024 06:29 PM Body Weight (76481-6) 170.7 [lb_av ] Body Mass Index (23116-8) 30.23 kg/m2 08/05/2024 07:52 AM Heart Rate (8867-4) 75 /min Blood Pressure Systolic (8480-6) 103 mm[Hg] Blood Pressure Diastolic (8462-4) 46 mm[Hg] 08/06/2024 12:54 AM Heart Rate (8867-4) 79 /min Blood Pressure Systolic (8480-6) 137 mm[Hg] Blood Pressure Diastolic (8462-4) 71 mm[Hg] 08/05/2024 07:05 PM Body Weight (69158-0) 170.6 [lb_av ] Body Mass Index (21426-6) 30.22 kg/m2 08/06/2024 08:27 AM Heart Rate (8867-4) 81 /min Blood Pressure Systolic (8480-6) 108 mm[Hg] Blood Pressure Diastolic (8462-4) 59 mm[Hg] 08/06/2024 02:46 PM Body Weight (07002-4) 170.1 [lb_av ] Body Mass Index (24433-0) 30.13 kg/m2 08/06/2024 07:20 PM Heart Rate (8867-4) 77 /min Blood Pressure Systolic (8480-6) 125 mm[Hg] Blood Pressure Diastolic (8462-4) 74 mm[Hg] 08/07/2024 08:51 AM Heart Rate (8867-4) 86 /min Blood Pressure Systolic (8480-6) 141 mm[Hg] Blood Pressure Diastolic (8462-4) 78 mm[Hg] 08/07/2024 03:38 PM Body Weight (07004-9) 169.7 [lb_av ] Body Mass Index (97516-7) 30.06 kg/m2 08/07/2024 06:44 PM Heart Rate [...] 78 mm[Hg] 08/09/2024 07:25 AM Body Weight (00975-1) 169.4 [lb_av ] Body Mass Index (81079-7) 30 kg/m2 08/09/2024 06:06 AM Heart Rate (8867-4) 80 /min Blood Pressure Systolic (8480-6) 120 mm[Hg] Blood Pressure Diastolic (8462-4) 60 mm[Hg] 08/10/2024 10:10 AM Body Weight (78260-2) 172.2 [lb_av ] Body Mass Index (96440-7) 30.5 kg/m2 08/10/2024 09:04 AM Temperature (8310-5) 99.1 [degF] Oxygen Saturation (80690-3) 96 % Respiratory Rate (9279-1) 16 /min [...] 79 mm[Hg] 08/11/2024 07:45 AM Body Weight (13344-1) 171.6 [lb_av ] Body Mass Index (55181-7) 30.39 kg/m2 08/11/2024 07:33 AM Heart Rate [...] 69 mm[Hg] 08/14/2024 12:45 PM Body Weight (65093-9) 167.8 [lb_av ] Body Mass Index (04166-0) 29.72 kg/m2 08/14/2024 07:13 PM Heart Rate (8867-4) 77 /min Blood Pressure Systolic (8480-6) 133 mm[Hg] Blood Pressure Diastolic (8462-4) 52 mm[Hg] 08/15/2024 09:00 AM Heart Rate (8867-4) 82 /min Blood Pressure Systolic (8480-6) 134 mm[Hg] Blood Pressure Diastolic (8462-4) 59 mm[Hg] 08/15/2024 11:21 AM Body Weight (44409-3) 169.6 [lb_av ] Body Mass Index (95728-5) 30.04 kg/m2 08/15/2024 06:43 PM Heart Rate [...] PM Temperature (8310-5) 98.8 [degF] Oxygen Saturation (52765-6) 98 % Respiratory Rate (9279-1) 17 /min Heart Rate (8867-4) 81 /min Blood Pressure Systolic (8480-6) 134 mm[Hg] Blood Pressure Diastolic (8462-4) 69 mm[Hg] 08/17/2024 12:13 PM Body Weight (65855-5) 169.9 [lb_av ] Body Mass Index (58505-9) 30.09 kg/m2 08/17/2024 08:04 PM Heart Rate [...] 76 mm[Hg] 08/18/2024 06:41 PM Body Weight (08028-7) 168.8 [lb_av ] Body Mass Index (82177-8) 29.9 kg/m2 08/19/2024 06:42 AM Heart Rate (8867-4) 81 /min Blood Pressure Systolic (8480-6) 122 mm[Hg] Blood Pressure Diastolic (8462-4) 55 mm[Hg] 08/19/2024 03:35 PM Body Weight (06223-6) 172.8 [lb_av ] Body Mass Index (07288-4) 30.61 kg/m2 08/19/2024 09:10 PM Heart Rate (8867-4) 88 /min Blood Pressure Systolic (8480-6) 136 mm[Hg] Blood Pressure Diastolic (8462-4) 59 mm[Hg] 08/20/2024 08:37 AM Heart Rate (8867-4) 82 /min Blood Pressure Systolic (8480-6) 127 mm[Hg] Blood Pressure Diastolic (8462-4) 61 mm[Hg] 08/20/2024 11:36 AM Body Weight (34076-7) 170 [lb_av] Body Mass Index (72685-4) 30.11 kg/m2 08/20/2024 09:28 PM Heart Rate (8867-4) 81 /min Blood Pressure Systolic (8480-6) 125 mm[Hg] Blood Pressure Diastolic (8462-4) 58 mm[Hg] 08/21/2024 08:03 AM Body Weight (16403-2) 170.2 [lb_av ] Body Mass Index (14117-1) 30.15 kg/m2 08/21/2024 08:02 AM Heart Rate [...] 60 mm[Hg] 08/22/2024 11:30 AM Body Weight (26242-8) 170.4 [lb_av ] Body Mass Index (43028-4) 30.18 kg/m2 08/22/2024 06:39 PM Heart Rate (8867-4) 75 /min Blood Pressure Systolic (8480-6) 155 mm[Hg] Blood Pressure Diastolic (8462-4) 73 mm[Hg] 08/23/2024 08:10 AM Body Weight (71202-7) 169 [lb_av] Body Mass Index (16523-7) 29.93 kg/m2 08/23/2024 08:09 AM Heart Rate (8867-4) 88 /min Blood Pressure Systolic (8480-6) 127 mm[Hg] Blood Pressure Diastolic (8462-4) 70 mm[Hg] 08/23/2024 07:35 PM Heart Rate (8867-4) 77 /min Blood Pressure Systolic (8480-6) 152 mm[Hg] Blood Pressure Diastolic (8462-4) 64 mm[Hg] 08/24/2024 08:34 AM Temperature (8310-5) 96.9 [degF] Oxygen Saturation (27673-5) 95 % Respiratory Rate (9279-1) 17 /min Heart Rate (8867-4) 84 /min Blood Pressure Systolic (8480-6) 141 mm[Hg] Blood Pressure Diastolic (8462-4) 80 mm[Hg] 08/24/2024 08:27 AM Heart Rate (8867-4) 74 /min Blood Pressure Systolic (8480-6) 106 mm[Hg] Blood Pressure Diastolic (8462-4) 50 mm[Hg] 08/24/2024 12:58 PM Body Weight (95671-5) 174 [lb_av] Body Mass Index (06907-4) 30.82 kg/m2 08/24/2024 08:02 PM Heart Rate (8867-4) 74 /min Blood Pressure Systolic (8480-6) 132 mm[Hg] Blood Pressure Diastolic (8462-4) 65 mm[Hg] 08/25/2024 06:33 AM Heart Rate (8867-4) 72 /min Blood Pressure Systolic (8480-6) 125 mm[Hg] Blood Pressure Diastolic (8462-4) 60 mm[Hg] 08/25/2024 06:32 AM Body Weight (94947-8) 172.4 [lb_av ] Body Mass Index (58074-8) 30.54 kg/m2 08/25/2024 11:21 PM Heart Rate (8867-4) 77 /min Blood Pressure Systolic (8480-6) 128 mm[Hg] Blood Pressure Diastolic (8462-4) 68 mm[Hg] 08/26/2024 09:02 AM Heart Rate (8867-4) 78 /min Blood Pressure Systolic (8480-6) 122 mm[Hg] Blood Pressure Diastolic (8462-4) 60 mm[Hg] 08/26/2024 10:43 AM Body Weight (91920-4) 169.6 [lb_av ] Body Mass Index (86649-2) 30.04 kg/m2 08/26/2024 07:51 PM Heart Rate (8867-4) 70 /min Blood Pressure Systolic (8480-6) 132 mm[Hg] Blood Pressure Diastolic (8462-4) 66 mm[Hg] 08/27/2024 08:20 AM Heart Rate (8867-4) 82 /min Blood Pressure Systolic (8480-6) 122 mm[Hg] Blood Pressure Diastolic (8462-4) 57 mm[Hg] 08/27/2024 04:17 PM Body Weight (82399-7) 170.3 [lb_av ] Body Mass Index (08971-7) 30.16 kg/m2 08/27/2024 07:29 PM Heart Rate (8867-4) 76 /min Blood Pressure Systolic (8480-6) 133 mm[Hg] Blood Pressure Diastolic (8462-4) 67 mm[Hg] 08/28/2024 08:35 AM Heart Rate (8867-4) 78 /min Blood Pressure Systolic (8480-6) 127 mm[Hg] Blood Pressure Diastolic (8462-4) 61 mm[Hg] 08/28/2024 05:14 PM Body Weight (29271-3) 170.9 [lb_av ] Body Mass Index (95968-3) 30.27 kg/m2 08/28/2024 08:14 PM Heart Rate (8867-4) 71 /min Blood Pressure Systolic (8480-6) 90 mm[Hg] Blood Pressure Diastolic (8462-4) 42 mm[Hg] 08/29/2024 08:56 AM Heart Rate (8867-4) 78 /min Blood Pressure Systolic (8480-6) 124 mm[Hg] Blood Pressure Diastolic (8462-4) 56 mm[Hg] 08/29/2024 02:48 PM Body Weight (98975-3) 172.4 [lb_av ] Body Mass Index (39043-5) 30.54 kg/m2 08/29/2024 07:09 PM Heart Rate (8867-4) 80 /min Blood Pressure Systolic (8480-6) 138 mm[Hg] Blood Pressure Diastolic (8462-4) 78 mm[Hg] 08/30/2024 08:15 AM Heart Rate (8867-4) 76 /min Blood Pressure Systolic (8480-6) 128 mm[Hg] Blood Pressure Diastolic (8462-4) 72 mm[Hg] Body Weight (97406-8) 172 [lb_av] Body Mass Index (61190-8) 30.47 kg/m2 08/30/2024 07:46 PM Heart Rate (8867-4) 81 /min Blood Pressure Systolic (8480-6) 154 mm[Hg] Blood Pressure Diastolic (8462-4) 70 mm[Hg] 08/31/2024 08:48 AM Heart Rate (8867-4) 86 /min Blood Pressure Systolic (8480-6) 138 mm[Hg] Blood Pressure Diastolic (8462-4) 69 mm[Hg] 08/31/2024 05:10 PM Temperature (8310-5) 97.4 [degF] Oxygen Saturation (10394-7) 93 % Respiratory Rate (9279-1) 16 /min Heart Rate (8867-4) 86 /min 08/31/2024 05:23 PM Body Weight (98541-9) 172.8 [lb_av ] Body Mass Index (84095-3) 30.61 kg/m2 08/31/2024 07:25 PM Heart Rate (8867-4) 80 /min Blood Pressure Systolic (8480-6) 139 mm[Hg] Blood Pressure Diastolic (8462-4) 69 mm[Hg] 09/01/2024 07:56 AM Heart Rate (8867-4) 79 /min Blood Pressure Systolic (8480-6) 116 mm[Hg] Blood Pressure Diastolic (8462-4) 53 mm[Hg] 09/01/2024 01:17 PM Body Weight (58749-8) 171.8 [lb_av ] Body Mass Index (15345-4) 30.43 kg/m2 09/01/2024 08:21 PM Heart Rate (8867-4) 78 /min Blood Pressure Systolic (8480-6) 132 mm[Hg] Blood Pressure Diastolic (8462-4) 77 mm[Hg] 09/02/2024 09:31 AM Heart Rate (8867-4) 78 /min Blood Pressure Systolic (8480-6) 120 mm[Hg] Blood Pressure Diastolic (8462-4) 51 mm[Hg] 09/02/2024 02:38 PM Body Weight (10831-8) 174 [lb_av] Body Mass Index (29543-5) 30.82 kg/m2 09/02/2024 07:12 PM Heart Rate (8867-4) 72 /min Blood Pressure Systolic (8480-6) 155 mm[Hg] Blood Pressure Diastolic (8462-4) 80 mm[Hg] 09/03/2024 05:36 PM Body Weight (20572-4) 171.2 [lb_av ] Body Mass Index (39827-4) 30.32 kg/m2 09/03/2024 01:37 PM Heart Rate (8867-4) 84 /min Blood Pressure Systolic (8480-6) 142 mm[Hg] Blood Pressure Diastolic (8462-4) 74 mm[Hg] 09/03/2024 07:09 PM Heart Rate (8867-4) 73 /min Blood Pressure Systolic (8480-6) 144 mm[Hg] Blood Pressure Diastolic (8462-4) 79 mm[Hg] 09/04/2024 08:36 AM Body Weight (94812-0) 168.4 [lb_av ] Body Mass Index (24331-2) 29.83 kg/m2 09/04/2024 08:35 AM Heart Rate (8867-4) 78 /min Blood Pressure Systolic (8480-6) 104 mm[Hg] Blood Pressure Diastolic (8462-4) 60 mm[Hg] 09/04/2024 07:19 PM Heart Rate (8867-4) 71 /min Blood Pressure Systolic (8480-6) 122 mm[Hg] Blood Pressure Diastolic (8462-4) 68 mm[Hg] 09/05/2024 04:43 PM Body Weight (85918-7) 170.1 [lb_av ] Body Mass Index (44467-0) 30.13 kg/m2 09/05/2024 06:33 PM Heart Rate (8867-4) 70 /min Blood Pressure Systolic (8480-6) 138 mm[Hg] Blood Pressure Diastolic (8462-4) 74 mm[Hg] 09/06/2024 07:01 AM Heart Rate (8867-4) 88 /min Blood Pressure Systolic (8480-6) 118 mm[Hg] Blood Pressure Diastolic (8462-4) 56 mm[Hg] 09/06/2024 03:46 PM Body Weight (25116-0) 169.4 [lb_av ] Body Mass Index (35854-2) 30 kg/m2 09/07/2024 09:38 AM Heart Rate (8867-4) 81 /min Blood Pressure Systolic (8480-6) 130 mm[Hg] Blood Pressure Diastolic (8462-4) 58 mm[Hg] 09/06/2024 07:02 PM Heart Rate (8867-4) 76 /min Blood Pressure Systolic (8480-6) 149 mm[Hg] Blood Pressure Diastolic (8462-4) 70 mm[Hg] 09/07/2024 09:39 AM Temperature (8310-5) 98.6 [degF] Oxygen Saturation (79856-7) 94 % Respiratory Rate (9279-1) 16 /min Heart Rate (8867-4) 81 /min Body Weight (52098-3) 169.4 [lb_av] Body Mass Index (05011-9) 30 kg/m2 09/07/2024 08:37 PM Heart Rate (8867-4) 80 /min Blood Pressure Systolic (8480-6) 161 mm[Hg] Blood Pressure Diastolic (8462-4) 70 mm[Hg] 09/08/2024 08:28 AM Heart Rate (8867-4) 79 /min Blood Pressure Systolic (8480-6) 112 mm[Hg] Blood Pressure Diastolic (8462-4) 59 mm[Hg] 09/08/2024 04:56 PM Body Weight (06302-4) 171.6 [lb_av ] Body Mass Index (89670-9) 30.39 kg/m2 09/08/2024 07:22 PM Heart Rate (8867-4) 71 /min Blood Pressure Systolic (8480-6) 122 mm[Hg] Blood Pressure Diastolic (8462-4) 65 mm[Hg] 09/09/2024 09:00 AM Body Weight (22837-7) 169.4 [lb_av ] Body Mass Index (58813-8) 30 kg/m2 09/09/2024 08:20 AM Heart Rate [...] 68 mm[Hg] 09/10/2024 12:13 PM Body Weight (72056-8) 171.9 [lb_av ] Body Mass Index (55932-7) 30.45 kg/m2 09/10/2024 07:11 PM Heart Rate (8867-4) 77 /min Blood Pressure Systolic (8480-6) 135 mm[Hg] Blood Pressure Diastolic (8462-4) 66 mm[Hg] 09/11/2024 08:44 AM Heart Rate (8867-4) 73 /min Blood Pressure Systolic (8480-6) 156 mm[Hg] Blood Pressure Diastolic (8462-4) 67 mm[Hg] 09/11/2024 09:47 AM Body Weight (85139-2) 169.6 [lb_av ] Body Mass Index (32130-2) 30.04 kg/m2 09/11/2024 11:22 PM Heart Rate (8867-4) 77 /min Blood Pressure Systolic (8480-6) 149 mm[Hg] Blood Pressure Diastolic (8462-4) 73 mm[Hg] 09/12/2024 07:56 AM Heart Rate (8867-4) 83 /min Blood Pressure Systolic (8480-6) 130 mm[Hg] Blood Pressure Diastolic (8462-4) 56 mm[Hg] 09/12/2024 03:04 PM Body Weight (03079-2) 172.8 [lb_av ] Body Mass Index (08885-3) 30.61 kg/m2 09/12/2024 06:31 PM Heart Rate [...] 79 mm[Hg] 09/13/2024 06:27 PM Body Weight (02075-2) 171.6 [lb_av ] Body Mass Index (04761-0) 30.39 kg/m2 09/14/2024 07:58 AM Heart Rate (8867-4) 87 /min Blood Pressure Systolic (8480-6) 161 mm[Hg] Blood Pressure Diastolic (8462-4) 74 mm[Hg] 09/14/2024 11:47 AM Body Weight (81740-6) 173.6 [lb_av ] Body Mass Index (89884-7) 30.75 kg/m2 09/14/2024 11:03 AM Temperature (8310-5) 97.7 [degF] Oxygen Saturation (91914-0) 95 % Respiratory Rate (9279-1) 16 /min [...] 54 mm[Hg] 09/15/2024 01:16 PM Body Weight (14499-4) 174.8 [lb_av ] Body Mass Index (96099-9) 30.96 kg/m2 09/15/2024 08:03 PM Heart Rate (8867-4) 78 /min Blood Pressure Systolic (8480-6) 152 mm[Hg] Blood Pressure Diastolic (8462-4) 81 mm[Hg] 09/16/2024 11:30 AM Heart Rate (8867-4) 83 /min Blood Pressure Systolic (8480-6) 186 mm[Hg] Blood Pressure Diastolic (8462-4) 62 mm[Hg] 09/16/2024 11:31 AM Body Weight (18802-4) 173 [lb_av] Body Mass Index (06200-5) 30.64 kg/m2 09/16/2024 07:03 PM Heart Rate (8867-4) 80 /min Blood Pressure Systolic (8480-6) 115 mm[Hg] Blood Pressure Diastolic (8462-4) 57 mm[Hg] 09/17/2024 08:02 AM Heart Rate (8867-4) 88 /min Blood Pressure Systolic (8480-6) 145 mm[Hg] Blood Pressure Diastolic (8462-4) 73 mm[Hg] 09/17/2024 03:54 PM Body Weight (52810-6) 173.2 [lb_av ] Body Mass Index (75312-5) 30.68 kg/m2 09/18/2024 08:08 AM Body Weight (80379-2) 170 [lb_av] Body Mass Index (76793-7) 30.11 kg/m2 09/18/2024 08:07 AM Heart Rate [...] 70 mm[Hg] 09/19/2024 11:54 AM Body Weight (11917-3) 171.2 [lb_av ] Body Mass Index (10232-7) 30.32 kg/m2 09/19/2024 06:27 PM Heart Rate (8867-4) 80 /min Blood Pressure Systolic (8480-6) 130 mm[Hg] Blood Pressure Diastolic (8462-4) 80 mm[Hg] 09/20/2024 02:56 PM Body Weight (11525-8) 170.2 [lb_av ] Body Mass Index (98304-4) 30.15 kg/m2 09/20/2024 10:11 AM Heart Rate [...] 65 /min 09/21/2024 09:38 AM Body Weight (39345-7) 169 [lb_av] Body Mass Index (76730-6) 29.93 kg/m2 09/21/2024 07:06 PM Heart Rate (8867-4) 81 /min Blood Pressure Systolic (8480-6) 153 mm[Hg] Blood Pressure Diastolic (8462-4) 73 mm[Hg] 09/22/2024 07:52 AM Heart Rate (8867-4) 69 /min Blood Pressure Systolic (8480-6) 121 mm[Hg] Blood Pressure Diastolic (8462-4) 68 mm[Hg] 09/22/2024 05:34 PM Body Weight (48594-3) 171.4 [lb_av ] Body Mass Index (98349-5) 30.36 kg/m2 09/22/2024 06:32 PM Heart Rate (8867-4) 80 /min Blood Pressure Systolic (8480-6) 150 mm[Hg] Blood Pressure Diastolic (8462-4) 76 mm[Hg] 09/23/2024 06:39 AM Heart Rate (8867-4) 68 /min Blood Pressure Systolic (8480-6) 115 mm[Hg] Blood Pressure Diastolic (8462-4) 58 mm[Hg] 09/23/2024 10:40 AM Body Weight (33683-4) 171 [lb_av] Body Mass Index (82287-3) 30.29 kg/m2 09/23/2024 10:20 PM Heart Rate (8867-4) 65 /min Blood Pressure Systolic (8480-6) 132 mm[Hg] Blood Pressure Diastolic (8462-4) 65 mm[Hg] 09/24/2024 03:06 PM Body Weight (92233-3) 171.3 [lb_av ] Body Mass Index (38338-1) 30.34 kg/m2 09/24/2024 09:28 AM Heart Rate (8867-4) 84 /min Blood Pressure Systolic (8480-6) 127 mm[Hg] Blood Pressure Diastolic (8462-4) 69 mm[Hg] 09/24/2024 11:01 PM Heart Rate (8867-4) 67 /min Blood Pressure Systolic (8480-6) 124 mm[Hg] Blood Pressure Diastolic (8462-4) 82 mm[Hg] 09/25/2024 08:32 AM Body Weight (97062-0) 169.4 [lb_av ] Body Mass Index (22501-5) 30 kg/m2 09/25/2024 07:06 AM Heart Rate [...] 60 mm[Hg] 09/26/2024 05:29 PM Body Weight (69263-9) 173.4 [lb_av ] Body Mass Index (65515-7) 30.71 kg/m2 Social History No smoking Hx information available Encounters Type CPT Code Date Location Provider Indication s encounter report 09/19/2014 11:15 AM VIKAS WRAY MD Advance Directives Directive Description Verification Date Supporting Document(s) Other Directive
--- OUTSIDE RECORDS SUMMARY | 2024-12-30 17:56 | XMS_ITS | Encounter Summary ---
Author Organization [facility] Address [address] [place] [address] Care Team Providers Care Cell Feed Department Supervisor Name Role Phone Unavailable Primary Care Provider Unavailabl e Encounter Details Date Type Department Care Team (Late st Contact Info) Description 12/07/2019 Lab Requisition [facility] Services [address] [place] [address] Bernabe Cuellar, [address] [facility] [address] [place] [id number] Social History Tobacco Use Types Packs/Day Years [...] - 150.0 ng/mL 12/07/2019 2:50 PM CDT [facility] Blood Collection / Unknown 12/07/2019 8:48 AM CDT 12/07/2019 2:26 PM CDT Narrative [facility] - 12/07/2019 2:50 PM CDT Premenopausal Range 10-150 ng/mL Postmenopausal Range 10-291 ng/mL Bernabe Cuellar DO CHEMISTRY ORDERABLES Final Result Performing Organization Address City/[facility]/ZIP Co de Phone Number [address] [address] * (ABNORMAL) IRON, TIBC, AND PERCENT SATURATION (12/07/2019 8:48 AM CDT) IRON 79 37 - 145 ug/dL 12/07/2019 2:50 PM CDT [facility] TIBC 238(L) 250 - 450 ug/dL 12/07/2019 2:50 PM CDT [facility] IRON % SATURATION 33 15 - 60 % 12/07/2019 2:50 PM CDT [facility] Blood Collection / Unknown 12/07/2019 8:48 AM CDT 12/07/2019 2:26 PM CDT Bernabe Cuellar DO CHEMISTRY ORDERABLES Final Result Performing Organization Address [facility]/ZIP Co de Phone Number [address] [address] * TSH (12/07/2019 8:48 AM CDT) TSH 1.38 0.27 - 4.20 uIU/mL 12/07/2019 2:50 PM CDT [facility] Blood Collection / Unknown 12/07/2019 8:48 AM CDT 12/07/2019 2:26 PM CDT Bernabe Cuellar DO CHEMISTRY ORDERABLES Final Result [facility] [address] [place] [address] * (ABNORMAL) BASIC METABOLIC PANEL (12/07/2019 8:48 AM CDT) SODIUM 144 136 - 145 mmol/L 12/07/2019 2:50 PM CDT [facility] POTASSIUM 4.5 3.5 - 5.1 mmol/L 12/07/2019 2:50 PM CDT [facility] CHLORIDE 109(H) 98 - 107 mmol/L 12/07/2019 2:50 PM CDT [facility] CO2 22 22 - 29 mmol/L 12/07/2019 2:50 PM CDT [facility] CALCIUM 10.1 8.8 - 10.2 mg/dL 12/07/2019 2:50 PM CDT [facility] BUN 38(H) 8 - 23 mg/dL 12/07/2019 2:50 PM CDT [facility] CREATININE 1.43(H) 0.51 - 0.95 mg/dL 12/07/2019 2:50 PM CDT [facility] GLUCOSE 117(H) 74 - 99 mg/dL 12/07/2019 2:50 PM CDT [facility] GFR 37(L) >=60 mL/min/1. 73 sq meter 12/07/2019 2:50 PM CDT [facility] Comment: eGFR has not been validated [...] 73 sq meter 12/07/2019 2:50 PM CDT [facility] ANION GAP 13 9 - 20 mmol/L 12/07/2019 2:50 PM CDT [facility] Blood Collection / Unknown 12/07/2019 8:48 AM CDT 12/07/2019 2:26 PM CDT Bernabe Cuellar DO CHEMISTRY ORDERABLES Final Result [facility] [address] [place] [address] * (ABNORMAL) CBC WITH DIFFERENTIAL (12/07/2019 8:48 AM CDT) Pathologist [facility] WBC 9.0 4.8 - 10.8 K/uL 12/07/2019 2:27 PM CDT [facility] RBC 4.36 4.20 - 5.40 M/uL 12/07/2019 2:27 PM CDT [facility] HEMOGLOBIN 13.0 12.0 - 16.0 g/dL 12/07/2019 2:27 PM CDT [facility] HEMATOCRIT 40.8 36.0 - 46.0 % 12/07/2019 2:27 PM CDT [facility] MCV 93.6 84.0 - 103.0 fL 12/07/2019 2:27 PM CDT [facility] MCH 29.8 27.0 - 34.0 pg 12/07/2019 2:27 PM CDT [facility] MCHC 31.9 30.0 - 35.0 g/dL 12/07/2019 2:27 PM CDT [facility] RDW 13.3 11.0 - 14.5 % 12/07/2019 2:27 PM CDT [facility] RDW-STDEV 45.2 37.0 - 54.0 fL 12/07/2019 2:27 PM CDT [facility] PLATELETS 256 140 - 440 K/uL 12/07/2019 2:27 PM CDT [facility] MPV 10.4 8.9 - 12.8 fL 12/07/2019 2:27 PM CDT [facility] NEUTROPHILS 69 42 - 75 % 12/07/2019 2:27 PM CDT [facility] LYMPHOCYTES 19(L) 24 - 44 % 12/07/2019 2:27 PM CDT [facility] MONOCYTES 8 2 - 10 % 12/07/2019 2:27 PM CDT [facility] EOSINOPHILS 2 0 - 7 % 12/07/2019 2:27 PM CDT [facility] BASOPHILS 1 0 - 1 % 12/07/2019 2:27 PM CDT [facility] IMMATURE GRANULOCYTES 1 0 - 2 % 12/07/2019 2:27 PM CDT [facility] NEUTROPHIL ABSOLUTE 6.21 2.00 - 8.00 K/uL 12/07/2019 2:27 PM CDT [facility] LYMPHOCYTE ABSOLUTE 1.74 1.20 - 4.00 K/uL 12/07/2019 2:27 PM CDT [facility] MONOCYTE ABSOLUTE 0.73(H) 0.10 - 0.60 K/uL 12/07/2019 2:27 PM CDT [facility] EOSINOPHIL ABSOLUTE 0.19 0.00 - 0.70 K/uL 12/07/2019 2:27 PM CDT [facility] BASOPHILS ABSOLUTE 0.07 0.00 - 0.20 K/uL 12/07/2019 2:27 PM CDT [facility] IMMATURE GRANULOCYTES ABSOLUTE 0.05 0.00 - 0.10 K/uL 12/07/2019 2:27 PM CDT [facility] Blood Collection / Unknown 12/07/2019 8:48 AM CDT 12/07/2019 2:24 PM CDT us Bernabe Cuellar DO HEMATOLOGY ORDERABLES Final Result [facility] [address] [place] [address] documented in this encounter Visit Diagnoses Not on filedocumented in this encounter
--- NOTE | 2024-12-30 18:02 | XRR_ITS ---
PROCEDURE INFORMATION: Exam: XR Chest Exam date and time: 12/30/2024 6:09 PM Age: 74 years old Clinical indication: Other: Hematemesis TECHNIQUE: Imaging protocol: Radiologic exam of the chest. Views: 1 view. COMPARISON: CT chest con [id number] 12/12/2024 6:57 PM FINDINGS: Lungs: Low lung volumes, limits exam. Increased interstitial markings likely due to low lung volumes. Unremarkable. No consolidation. Pleural spaces: Unremarkable. No pleural effusion. No pneumothorax. Heart/Mediastinum: Unremarkable. No cardiomegaly. Bones/joints: Rib fractures on right rib 2 and probably on left ribs 6 and 7. XR/XR chest 1V portable [id number] IMPRESSION: Rib fractures on right rib 2 and probably on left ribs 6 and 7.
--- NOTE | 2024-12-30 18:07 | W.ED.GIBLEED ---
HPI - GI Bleed General: Chief complaint: GI Bleed Stated complaint: bloody vomit Time Seen by Provider: 12/30/24 17:53 Source: patient and EMS Mode of arrival: EMS Limitations: no limitations History of Present Illness: Patient is a 74-year-old female with past medical history of anemia who presents emergency department due to acute hematemesis at the retirement prior to arrival. She does arrive by ambulance, where retirement staff had noticed that this was copious amount of coffee-ground appearing emesis. She has also been dealing with melena and hematochezia for the past month, no scope but did have labs drawn on 12/08 showing a hemoglobin of 8.9. She has required transfusion in the past. She has no complaints me at this time other than some mild weakness, however no pain. Her vitals are stable, blood pressure is normal and normal heart rate. She has no blood thinner use, though does have a history of CVA. She has chronic right upper extremity deficits from prior CVA. She has no complaints of nausea, no vomiting since arriving. Reportedly earlier today she was complaining of some abdominal pain. No chest pain, shortness of breath, severe back pain, or any other concerns at this time. MD complaint: coffee ground emesis Onset (ago): hour(s) (1 episode) Associated symptoms: Denies abdominal pain, chills, fever(s), headache(s), nausea, rash or vomiting Related Data Home Medications ?Medication ?Instructions ?Recorded ?Confirmed vitamins A,C,L-xidi-fvaxyt 4,296 1 cap PO DAILY 07/08/23 12/19/24 mcg-226 mg-90 mg capsule (PreserVision AREDS) acetaminophen 325 mg tablet 650 mg PO QID PRN Fever Or Pain 11/20/24 12/19/24 (Tylenol) atorvastatin 40 mg tablet 40 mg PO DAILY 11/20/24 12/19/24 baclofen 5 mg tablet 5 mg PO TID PRN JOINT PAIN 11/20/24 12/19/24 carvedilol 6.25 mg tablet 6.25 mg PO BID 11/20/24 12/19/24 escitalopram oxalate 5 mg tablet 5 mg PO DAILY anxiety 11/20/24 12/19/24 loperamide 2 mg tablet (Imodium 2 mg PO DAILY 11/20/24 12/19/24 A-D) omeprazole 20 mg capsule,delayed 20 mg PO DAILY 11/20/24 12/19/24 release peg 400-propylene glycol 0.4 %-0.3 1 drp ophthalmic (eye) TID 11/20/24 12/19/24 % eye drops (Systane (propylene glycol)) potassium chloride 20 mEq 20 meq PO DAILY take with Lasix 11/20/24 12/19/24 tablet,extended release(part/cryst) bisacodyl 10 mg rectal suppository 10 mg MS DAILY PRN Constipation 12/07/24 12/19/24 (Dulcolax (bisacodyl)) tirzepatide 2.5 mg/0.5 mL 2.5 mg SUBCUT .WEEKLY 12/07/24 12/19/24 subcutaneous pen injector (Ambreen) Previous Rx's ?Medication ?Instructions ?Recorded ferrous sulfate 325 mg (65 mg 325 mg PO EVERY OTHER DAY #90 tabs 11/22/24 iron) tablet furosemide 40 mg tablet (Lasix) 40 mg PO DAILY PRN Edema #1 tab 11/22/24 tramadol 25 mg tablet 25 mg PO QID PRN pain #15 tabs 12/02/24 bisacodyl 5 mg tablet,delayed 5 mg PO DAILY #4 tabs 12/28/24 release (Dulcolax (bisacodyl)) magnesium citrate 592 ml PO BID constipation #592 mL 12/28/24 Allergies Allergy/AdvReac Type Severity Reaction Status Date / Time No Known Allergies Allergy Verified 07/08/23 13:10 Review of Systems General: Reports: 10 or more systems reviewed and unremarkable except in HPI and below Const: Denies: fever(s), chills, change in appetite, change in weight or diaphoresis ENMT: Denies: throat pain or hoarseness Card: Denies: chest pain, palpitations or lightheadedness Resp: Denies: dyspnea, productive cough or wheezing GI: Reports: hematemesis; Denies: abdominal pain, nausea, vomiting, diarrhea, constipation, bloating, change in stool character or hematochezia : Denies: flank pain, difficulty voiding, dysuria, urinary frequency or urinary urgency Musc: Denies: neck pain or back pain Skin/Breast: Denies: rash or new lesions Neuro: Reports: weakness in extremities; Denies: headache(s) or dizziness PFSH ED PFSH: Medical History Family history of lupus anticoagulant disorder Family history of factor V Leiden mutation GERD (gastroesophageal reflux disease) -on PPI Overactive bladder Anemia HLD (hyperlipidemia) -lipid panel ordered -on statin HTN (hypertension) -VSS; continue to monitor -on BB Multiple sclerosis Dementia Hemiplegia and hemiparesis following cerebral infarction affecting right dominant side CVA (cerebral vascular accident) -prior CVA with residual right sided weakness, decreased sensation -noted CT head reported as 5.8 cm subacute non-hemorrhagic infarct in left parietal lobe, stable left hemispheric encephalomalacia. MRI head reported as acute/subacute infarct involving L temporal lobe, numerous flow voids throughout the L cerebral hemisphere consistent with AVM. -Echo: EF=68%, G1DD, no RWMA, trace AR -carotid ultrasound with no significant stenosis -Telemetry monitoring -VSS -Fall/aspiration precautions -PT/ST/OT evaluations appreciated -Continue aspirin, statin added -Troponins noted with no significant delta -noted TSH, A1c, lipid panel Family History Mother Breast cancer Denies family history of Colon cancer Ovarian cancer Prostate cancer Diabetes Heart disease Hypercholesteremia Hypertension Uterine cancer Thyroid disease Stroke Social History Smoking and tobacco/nicotine status: never used tobacco/nicotine Physical Exam Const: COMMON NORMALS: patient oriented x3, no limitations and alert GENERAL APPEARANCE: cooperative ORIENTATION/CONSCIOUSNESS: Yes awake HENMT: MOUTH: Normal oral and palatal mucosa present Eye: COMMON NORMALS: Equal, round and reactive pupils present, EOMs intact bilaterally, conjunctivae normal and normal visual leigh by confrontation CONJUNCTIVA: Yes conjunctivae normal PUPIL: Yes Equal, round and reactive pupils present OTHER: No conjunctival pallor Neck/C-Spine: COMMON NORMALS: full ROM, supple, no meningeal signs and no JVD Resp: COMMON NORMALS: normal respiratory effort, No retractions, No use of accessory muscles and clear to auscultation bilaterally AUSCULTATION: clear to auscultation bilaterally, no crackles, no rales, no rhonchi and no wheezes Cardio: COMMON NORMALS: no JVD, regular rate, regular rhythm, S1 normal heart sound present, S2 normal heart sound present, No gallops present (Cardio), No clicks present (Cardio), No murmurs present (Cardio), No rub (Cardio) and Peripheral pulses 2+ throughout RATE: regular rate RHYTHM: regular rhythm HEART SOUNDS: S1 normal heart sound present and S2 normal heart sound present PERIPHERAL PULSES: Peripheral pulses 2+ throughout GI: COMMON NORMALS: Normal to inspection, nondistended, normoactive bowel sounds present, Soft to palpation, non-tender, No hepatosplenomegaly present and no masses AUSCULTATION: Yes normoactive bowel sounds PALPATION: Yes Soft to palpation, No Guarding due to palpation present (GI), No Rigid due to palpation and Yes No hepatosplenomegaly present RECTAL EXAM: heme positive stool and External hemorrhoid(s) present : COMMON NORMALS: Yes no CVA tenderness BLADDER/KIDNEY EXAM: Yes no CVA tenderness Back/Pelvis: COMMON NORMALS: no CVA tenderness Extremity: COMMON NORMALS: normal to inspection and full ROM Neuro: COMMON NORMALS: patient oriented x3 and moves all extremities SENSORIUM/ORIENTATION: Yes alert MENINGEAL SIGNS: Yes no meningeal signs OTHER: Chronic right upper extremity deficit/contracture from previous stroke Psych: COMMON NORMALS: mental status grossly normal, cooperative and speech normal SPEECH: Yes normal speech Skin: COMMON NORMALS: no rashes or lesions noted GENERAL SKIN EXAM: no rashes or lesions noted Course Vital Signs: Vital signs: Vital Signs Temperature 98.1 F 12/30/24 17:53 Pulse Rate 76 12/30/24 18:47 Respiratory Rate 16 12/30/24 17:53 Blood Pressure 153/50 12/30/24 18:47 Pulse Oximetry 98 12/30/24 18:47 Oxygen Delivery Me thod Room Air 12/30/24 18:47 MDM - GI Bleed Medical Decision Making This patient presents by EMS from the retirement with an episode of hematemesis, on background of melena for a month. She had labs drawn in November, showing hemoglobin of 8.9, this is up to 10.2 today with her labs. Ultrasound IV was placed, and the rest of her labs overall unremarkable. She is not anticoagulated, her coags were normal. She has chronic right upper extremity contracture from previous stroke, and has had transfusion in the past she reports. Only reports some weakness and did report some abdominal pain to staff earlier today, but no complaints at this time. Bedside Hemoccult testing is positive. Her vitals have been stable throughout her ED stay, specifically her blood pressure and heart rate. She was given fluids and IV Protonix administered. I spoke with Dr. Larsen, general surgeon, who will consult the patient for scope if she is admitted to medicine. Dr. Padilla to see the patient in the ED. Staffed patient in the ED with Dr. Yin who places admit orders. Lab Data 12/30/24 18:29 12/30/24 18:29 Radiology Impressions Chest X-Ray 12/30/24 18:02 IMPRESSION: Rib fractures on right rib 2 and probably on left ribs 6 and 7. Laboratory Results WBC 9.13 10^3/uL (3.29-11.43) 12/30/24 18: RBC 3.95 10^6/uL (3.85-5.65) 12/30/24 18: Hgb 10.20 g/dL (11.27-16.99) L 12/30/24 18:29 Hct 34.8 % (36-47) L 12/30/24 18: MCV 88.1 fl (85-98) 12/30/24 18: MCH 25.8 pg (27-33) L 12/30/24 18: MCHC 29.3 g/dL (30-55) L 12/30/24 18:29 RDW 21.2 % (12.1-15.1) H 12/30/24 18: Plt Count 175 10^3/cmm (157-399) 12/30/24 18: MPV 9.6 fL (7.4-10.4) 12/30/24 18: Neut % (Auto) 73.3 % 12/30/24 18: Lymph % (Auto) 15.2 % 12/30/24 18: [place] % (Auto) 7.4 % 12/30/24 18: Eos % (Auto) 3.3 % 12/30/24 18: Baso % (Auto) 0.5 % 12/30/24 18: Neut # (Auto) 6.68 10^3/uL (1.8-7.7) 12/30/24 18:29 Lymph # (Auto) 1.4 10^3/uL (0.8-4.8) 12/30/24 18: [place] # (Auto) 0.7 10^3/uL (0.2-0.9) 12/30/24 18:29 Eos # (Auto) 0.3 10^3/uL (0.0-0.8) 12/30/24 18: Baso # (Auto) 0.1 10^3/uL (0.0-0.1) 12/30/24 18: Nucleated RBC % (auto) 0 % 12/30/24 18: Nucleated RBCs # 0.0 /100WBC 12/30/24 18: PT 13.60 SECONDS (12.1-14.9) 12/30/24 18: INR 0.97 (0.8-1.2) 12/30/24 18: APTT 27.2 SECONDS (23.9-36.7) 12/30/24 18: Sodium 140 mmol/L (136-145) 12/30/24 18: Potassium 4.3 mmol/L (3.5-5.1) 12/30/24 18: Chloride 105 mmol/L (98-107) 12/30/24 18: Carbon Dioxide 24 mmol/L (22-29) 12/30/24 18: Anion Gap 15.3 (5-19) 12/30/24 18: BUN 13 mg/dL (8-23) 12/30/24 18: Creatinine 1.1 mg/dL (0.5-0.9) H 12/30/24 18:29 GFR Calculation Not Reportable 12/30/24 18:29 Glucose 124 mg/dL (65-115) H 12/30/24 18: Calculated Osmolality 292 mOsm/kg (285-295) 12/30/24 18: Lactic Acid 1.3 mmol/L (0.5-2.2) 12/30/24 18: Calcium 9.0 mg/dL (8.5-10.5) 12/30/24 18: Total Bilirubin 1.3 mg/dL (0.15-1.2) H 12/30/24 18:29 AST 12 U/L (0-32) 12/30/24 18:29 ALT 9 U/L (0-33) 12/30/24 18:29 Alkaline Phosphatase 113 U/L (35-105) H 12/30/24 18:29 Total Protein 6.6 g/dL (6.6-8.7) 12/30/24 18:29 Albumin 3.7 g/dL (3.5-5.2) 12/30/24 18: Globulin 2.9 g/dL (1.3-4.6) 12/30/24 18:29 All radiology interpretation(s) finalized by discharge Discharge Plan Discharge Patient Disposition: Admitted As Inpatient Clinical Impression: Upper GI bleed Condition: Stable Coding Level of Care Code ED Prepared Foods Team Leader for Linn Bain
[2024-12-30 18:42] LABS: Hematocrit 34.8 % (36-47); Hemoglobin 10.20 g/dL (11.27-16.99); Mean Corpuscular HGB Conc 29.3 g/dL (30-55); Mean Corpuscular Hemoglobin 25.8 pg (27-33); Mean Corpuscular Volume 88.1 fl (85-98); Nucleated Red Blood Cells % 0 %; Platelet Count 175 10^3/cmm (157-399); Red Blood Count 3.95 10^6/uL (3.85-5.65); White Blood Count 9.13 10^3/uL (3.29-11.43)
[2024-12-30 18:49] LABS: INR 0.97 (0.8-1.2); Prothrombin Time 13.60 SECONDS (12.1-14.9)
[2024-12-30 18:50] LABS: Partial Thromboplastin Time 27.2 SECONDS (23.9-36.7)
[2024-12-30 19:18] LABS: Alanine Aminotransferase 9 U/L (0-33); Albumin Level 3.7 g/dL (3.5-5.2); Alkaline Phosphatase 113 U/L (35-105); Anion Gap 15.3 (5-19); Aspartate Amino Transferase 12 U/L (0-32); Blood Urea Nitrogen 13 mg/dL (8-23); Calcium 9.0 mg/dL (8.5-10.5); Carbon Dioxide 24 mmol/L (22-29); Chloride 105 mmol/L (98-107); Creatinine Clr Calc Pharmacy 41.4826; Globulin 2.9 g/dL (1.3-4.6); Glucose 124 mg/dL (65-115); Osmolality Calculated 292 mOsm/kg (285-295); Potassium 4.3 mmol/L (3.5-5.1); Sodium 140 mmol/L (136-145); Total Protein 6.6 g/dL (6.6-8.7)
[2024-12-30 19:19] LABS: Lactic Sepsis W/Reflex 1.3 mmol/L (0.5-2.2)
[2024-12-30 19:36] LABS: Base Excess VBG -0.5 mmol/L (-3.0-3.0); Blood Gas Operator Identificat BD; Blood Gas Sample Site Not specified; Blood Gas Sample Type Venous; HCO3 VBG 25.8 mmol/L (24-28); PCO2 VBG 49.3 mmHg (41-51); PO2 VBG 38.2 mmHg (25-40); Venous Blood Gas Hematocrit 31.0 % (37-47); pH VBG 7.33 (7.32-7.42)
[2024-12-30] MEDS: pantoprazole 40 mg SDV 80 MG IVP (19:36)
--- NOTE | 2024-12-30 20:18 | PM.HP ---
Providers/Chief Complaint Primary Care Provider: Diana Cosme Chief Complaint: bloody vomit History of Present Illness Lee Ann Leahy is a 74 year old female with a past medical history of CVA, with residual right-sided deficits, right arm flexion contracture, acute anemia, factor V mutation, who presents [facility] due to complaints of hematemesis, currently patient is alert oriented x 3, following all commands, patient's daughters at bedside, she tells me that she has been feeling weak recently, lightheaded, she has had a couple falls, no bloody or black stools reported, but her Hemoccult was positive in the emergency room according to ER provider, she did have an episode of hematemesis Review of Systems Const: Denies: fever(s) Card: Denies: chest pain Resp: Denies: dyspnea GI: Denies: abdominal pain Medications/Allergies Home Medications ?Medication ?Instructions ?Recorded ?Confirmed ?Last Taken ?Type vitamins A,C,N-ocxg-gmaanc 4,296 1 cap PO DAILY 07/08/23 12/19/24 12/19/24 History mcg-226 mg-90 mg capsule (PreserVision AREDS) acetaminophen 325 mg tablet 650 mg PO QID PRN Fever Or Pain 11/20/24 12/19/24 12/19/24 History (Tylenol) atorvastatin 40 mg tablet 40 mg PO DAILY 11/20/24 12/19/24 12/19/24 History baclofen 5 mg tablet 5 mg PO TID PRN JOINT PAIN 11/20/24 12/19/24 12/14/24 History carvedilol 6.25 mg tablet 6.25 mg PO BID 11/20/24 12/19/24 12/19/24 History escitalopram oxalate 5 mg tablet 5 mg PO DAILY anxiety 11/20/24 12/19/24 12/19/24 History loperamide 2 mg tablet (Imodium 2 mg PO DAILY 11/20/24 12/19/24 12/19/24 History A-D) omeprazole 20 mg capsule,delayed 20 mg PO DAILY 11/20/24 12/19/24 12/19/24 History release peg 400-propylene glycol 0.4 %-0.3 1 drp ophthalmic (eye) TID 11/20/24 12/19/24 12/19/24 History % eye drops (Systane (propylene glycol)) potassium chloride 20 mEq 20 meq PO DAILY take with Lasix 11/20/24 12/19/24 12/19/24 History tablet,extended release(part/cryst) ferrous sulfate 325 mg (65 mg 325 mg PO EVERY OTHER DAY #90 tabs 11/22/24 12/19/24 12/19/24 Rx iron) tablet furosemide 40 mg tablet (Lasix) 40 mg PO DAILY PRN Edema #1 tab 11/22/24 12/19/24 12/01/24 Rx tramadol 25 mg tablet 25 mg PO QID PRN pain #15 tabs 12/02/24 12/19/24 12/17/24 Rx bisacodyl 10 mg rectal suppository 10 mg CO DAILY PRN Constipation 12/07/24 12/19/24 12/09/24 History (Dulcolax (bisacodyl)) tirzepatide 2.5 mg/0.5 mL 2.5 mg SUBCUT .WEEKLY 12/07/24 12/19/24 12/15/24 History subcutaneous pen injector (Mounjaro) bisacodyl 5 mg tablet,delayed 5 mg PO DAILY #4 tabs 12/28/24 Unknown Rx release (Dulcolax (bisacodyl)) magnesium citrate 592 ml PO BID constipation #592 mL 12/28/24 Unknown Rx Allergies Allergy/AdvReac Type Severity Reaction Status Date / Time No Known Allergies Allergy Verified 07/08/23 13:10 PFSH Acute PFSH: Medical History Family history of lupus anticoagulant disorder Family history of factor V Leiden mutation GERD (gastroesophageal reflux disease) -on PPI Overactive bladder Anemia HLD (hyperlipidemia) -lipid panel ordered -on statin HTN (hypertension) -VSS; continue to monitor -on BB Multiple sclerosis Dementia Hemiplegia and hemiparesis following cerebral infarction affecting right dominant side CVA (cerebral vascular accident) -prior CVA with residual right sided weakness, decreased sensation -noted CT head reported as 5.8 cm subacute non-hemorrhagic infarct in left parietal lobe, stable left hemispheric encephalomalacia. MRI head reported as acute/subacute infarct involving L temporal lobe, numerous flow voids throughout the L cerebral hemisphere consistent with AVM. -Echo: EF=68%, G1DD, no RWMA, trace AR -carotid ultrasound with no significant stenosis -Telemetry monitoring -VSS -Fall/aspiration precautions -PT/ST/OT evaluations appreciated -Continue aspirin, statin added -Troponins noted with no significant delta -noted TSH, A1c, lipid panel Family History Mother Breast cancer Denies family history of Colon cancer Ovarian cancer Prostate cancer Diabetes Heart disease Hypercholesteremia Hypertension Uterine cancer Thyroid disease Stroke Social History Smoking and tobacco/nicotine status: never used tobacco/nicotine Vitals/I&O/Wt Last Vital Signs Temp 98.1 F 12/30/24 17:53 Pulse 76 12/30/24 18:47 Resp 16 12/30/24 17:53 BP 153/50 12/30/24 18:47 Pulse Ox 98 12/30/24 18:47 O2 Del Method Room Air 12/30/24 18:47 Weight last 48 hrs Weight 63.503 kg Physical Exam Const: COMMON NORMALS: no acute distress and patient oriented x3 Eye: COMMON NORMALS: Equal, round and reactive pupils present and EOMs intact bilaterally Resp: COMMON NORMALS: normal respiratory effort, No retractions, No use of accessory muscles and clear to auscultation bilaterally AUSCULTATION: clear to auscultation bilaterally Cardio: COMMON NORMALS: regular rate, regular rhythm, S1 normal heart sound present and S2 normal heart sound present RATE: regular rate RHYTHM: regular rhythm HEART SOUNDS: S1 normal heart sound present and S2 normal heart sound present GI: COMMON NORMALS: Normal to inspection, nondistended, normoactive bowel sounds present, Soft to palpation and non-tender Extremity: COMMON NORMALS: no calf tenderness and no pedal edema Neuro: COMMON NORMALS: patient oriented x3, CN's II-XII intact bilaterally and moves all extremities Psych: COMMON NORMALS: mental status grossly normal Data 12/30/24 18:29 12/30/24 18:29 A&P Assessment and plan 1. Upper GI bleed: 2. Anemia: Plan: Acute anemia, concerns for upper GI bleed -Is on aspirin Plan - Hold all blood thinners - Protonix - Carafate - IV fluids - Monitor hemoglobin 4 hours - Full code - SCDs for DVT prophylaxis - General Surgery consulted for EGD tomorrow, n.p.o. midnight History of CVA with right-sided deficits of right arm flexion contracture Hypertension Hyperlipidemia Overactive bladder GERD Discussed with patient if she develops any blood or black stools to let us know right away, do not ambulate without assistance, risk of orthostatic hypotension, she is on bedrest PDMP PDMP Reviewed: Not Reviewed Attestations Medical Necessity Statement*: Patient requires hospitalization, inpatient, greater than 2 midnights Diagnoses Upper GI bleed K92.2 Anemia D64.9
[2024-12-30 20:33] LABS: Ferritin 96 ng/mL (15-150); Iron 33 ug/dL (37-145); Total Iron Binding Capacity 168 mcg/dl; Unsaturated Iron Binding 135 ug/dL (112-347)
[2024-12-30 20:40] LABS: Procalcitonin 0.11 ng/mL (0-0.5)
[2024-12-30 21:02] LABS: Hematocrit 33.2 % (36-47); Hemoglobin 10.00 g/dL (11.27-16.99)
[2024-12-30] MEDS: sucralfate 1 gm/10 mL Oral Liq UDC PO (21:58)
[2024-12-30 22:01] LABS: Estmated Average Glucose 134; Hemoglobin A1C 6.3 % (4.0-6.0)
[2024-12-30 22:11] LABS: Cholesterol 147 mg/dL (0-200); HDL Cholesterol 36 mg/dL (60-100); Thyroid Stimulating Hormone 1.85 uIU/mL (0.27-4.20); Triglycerides 202 mg/dL (0-150)
[2024-12-31] VITALS (15 sets, daily range): BP systolic 116–144; BP diastolic 46–84; PULSE 72–86; RESP 15–18; TEMP 36.5–37.4; O2SAT 93–100
[2024-12-31 00:59] LABS: Hematocrit 33.8 % (36-47); Hemoglobin 10.10 g/dL (11.27-16.99)
[2024-12-31 03:03] LABS: Glucose Urine UA Negative (Normal); Nitrate Urine Positive (Negative); Specific Gravity, Urine 1.013 (1.005-1.030)
[2024-12-31 03:06] LABS: Add Urine Microscopic? YES
[2024-12-31 03:15] LABS: UA Slide Review UA Slide Review Perf
[2024-12-31] MEDS: sucralfate 1 gm/10 mL Oral Liq UDC PO ×4 (03:27→21:55)
[2024-12-31 04:58] LABS: Hematocrit 31.7 % (36-47); Hemoglobin 9.20 g/dL (11.27-16.99); Mean Corpuscular HGB Conc 29.0 g/dL (30-55); Mean Corpuscular Hemoglobin 26.1 pg (27-33); Mean Corpuscular Volume 90.1 fl (85-98); Nucleated Red Blood Cells % 0 %; Platelet Count 158 10^3/cmm (157-399); Red Blood Count 3.52 10^6/uL (3.85-5.65); White Blood Count 6.51 10^3/uL (3.29-11.43)
[2024-12-31 05:23] LABS: NT Pro B Type Natriuretic Pept 445 pg/mL (0-125)
[2024-12-31 05:39] LABS: Alanine Aminotransferase 7 U/L (0-33); Albumin Level 3.0 g/dL (3.5-5.2); Alkaline Phosphatase 100 U/L (35-105); Anion Gap 14.2 (5-19); Aspartate Amino Transferase 10 U/L (0-32); Blood Urea Nitrogen 9 mg/dL (8-23); Calcium 8.4 mg/dL (8.5-10.5); Carbon Dioxide 22 mmol/L (22-29); Chloride 111 mmol/L (98-107); Creatinine Clr Calc Pharmacy 48.3545; Globulin 2.4 g/dL (1.3-4.6); Glucose 99 mg/dL (65-115); Osmolality Calculated 295 mOsm/kg (285-295); Potassium 4.2 mmol/L (3.5-5.1); Sodium 143 mmol/L (136-145); Total Protein 5.4 g/dL (6.6-8.7)
[2024-12-31] MEDS: pantoprazole 40 mg SDV IVP ×2 (06:21→17:55)
--- NOTE | 2024-12-31 08:52 | PM.CONSULT ---
Providers/Reason For Consult Consulting Physician/Specialty*: Dr. Larsen general surgery Reason for Consult*: Melena GI bleed Attending Physician: Kristine Bonilla MD Primary Care Provider: Diana Cosme History of Present Illness History of Present Illness Lee Ann Leahy is a 74 year old female whom surgery was consulted for melena. No weight loss. No dysphagia. No heartburn. Medications/Allergies Home Medications ?Medication ?Instructions ?Recorded ?Confirmed ?Last Taken ?Type vitamins A,C,Y-qanc-jphkcj 4,296 1 cap PO DAILY 07/08/23 12/31/24 12/30/24 10:05 History mcg-226 mg-90 mg capsule (PreserVision AREDS) acetaminophen 325 mg tablet 650 mg PO QID PRN Fever Or Pain 11/20/24 12/31/24 12/30/24 07:51 History (Tylenol) atorvastatin 40 mg tablet 40 mg PO DAILY 11/20/24 12/31/24 12/30/24 07:51 History baclofen 5 mg tablet 5 mg PO TID PRN JOINT PAIN 11/20/24 12/31/24 12/23/24 06:09 History carvedilol 6.25 mg tablet 6.25 mg PO BID 11/20/24 12/31/24 12/30/24 07:51 History escitalopram oxalate 5 mg tablet 5 mg PO DAILY anxiety 11/20/24 12/31/24 12/30/24 07:51 History loperamide 2 mg tablet (Imodium 2 mg PO DAILY 11/20/24 12/31/24 12/30/24 07:51 History A-D) omeprazole 20 mg capsule,delayed 20 mg PO DAILY 11/20/24 12/31/24 12/30/24 07:51 History release peg 400-propylene glycol 0.4 %-0.3 1 drp ophthalmic (eye) TID 11/20/24 12/31/24 12/30/24 13:18 History % eye drops (Systane (propylene glycol)) potassium chloride 20 mEq 20 meq PO DAILY take with Lasix 11/20/24 12/31/24 12/30/24 07:51 History tablet,extended release(part/cryst) ferrous sulfate 325 mg (65 mg 325 mg PO EVERY OTHER DAY #90 tabs 11/22/24 12/31/24 12/30/24 07:51 Rx iron) tablet furosemide 40 mg tablet (Lasix) 40 mg PO DAILY PRN Edema #1 tab 11/22/24 12/31/24 12/01/24 Rx tramadol 25 mg tablet 25 mg PO QID PRN pain #15 tabs 12/02/24 12/31/24 12/17/24 07:55 Rx bisacodyl 10 mg rectal suppository 10 mg SC DAILY PRN Constipation 12/07/24 12/31/24 12/09/24 11:44 History (Dulcolax (bisacodyl)) oxycodone-acetaminophen 5 mg-325 1 tab PO Q8H PRN Pain 12/31/24 12/31/24 12/15/24 06:57 History mg tablet tirzepatide 5 mg/0.5 mL 5 mg SUBCUT Q7D 12/31/24 12/31/24 12/29/24 06:49 History subcutaneous pen injector (Michaelro) Allergies Allergy/AdvReac Type Severity Reaction Status Date / Time No Known Allergies Allergy Verified 07/08/23 13:10 Current Medications Generic Name Dose Route Start Last Admin Trade Name Freq PRN Reason Stop Dose Admin Sodium Chloride 1,000 mls @ 50 mls/hr 12/30/24 21:30 12/30/24 21:55 Sodium Chloride 0.9% IV 50 mls/hr .Q20H ATIF Administration Pantoprazole Sodium 40 mg 12/31/24 06:00 12/31/24 06:21 Pantoprazole 40 Mg Sdv IVP 40 mg Q12H ATIF Administration Sucralfate 1 gm 12/30/24 21:30 12/31/24 03:27 Sucralfate 1 Gm/10 Ml Oral Liq Udc PO 1 gm Q6H ATIF Administration PFSH Acute PFSH: Medical History (Updated 12/31/24 @ 10:03 by Tyler Larsen MD) Family history of lupus anticoagulant disorder Family history of factor V Leiden mutation GERD (gastroesophageal reflux disease) -on PPI Overactive bladder Anemia HLD (hyperlipidemia) -lipid panel ordered -on statin HTN (hypertension) -VSS; continue to monitor -on BB Multiple sclerosis Dementia Hemiplegia and hemiparesis following cerebral infarction affecting right dominant side CVA (cerebral vascular accident) -prior CVA with residual right sided weakness, decreased sensation -noted CT head reported as 5.8 cm subacute non-hemorrhagic infarct in left parietal lobe, stable left hemispheric encephalomalacia. MRI head reported as acute/subacute infarct involving L temporal lobe, numerous flow voids throughout the L cerebral hemisphere consistent with AVM. -Echo: EF=68%, G1DD, no RWMA, trace AR -carotid ultrasound with no significant stenosis -Telemetry monitoring -VSS -Fall/aspiration precautions -PT/ST/OT evaluations appreciated -Continue aspirin, statin added -Troponins noted with no significant delta -noted TSH, A1c, lipid panel Family History Mother Breast cancer Denies family history of Colon cancer Ovarian cancer Prostate cancer Diabetes Heart disease Hypercholesteremia Hypertension Uterine cancer Thyroid disease Stroke Social History Smoking and tobacco/nicotine status: never used tobacco/nicotine Vitals/I&O/Wt Last Vital Signs Temp 98.5 F 12/31/24 07:41 Pulse 82 12/31/24 07:41 Resp 18 12/31/24 07:41 BP 121/68 12/31/24 07:41 Pulse Ox 93 12/31/24 07:41 O2 Del Method Room Air 12/31/24 07:41 12/30/24 12/31/24 12/31/24 22:59 06:59 14:59 Intake Total 1000 / 1000 Balance 1000 / 1000 Weight last 48 hrs Weight 158 lb 11.2 oz Weight 158 lb 1.6 oz Weight 140 lb Physical Exam Narrative: Chest: Unlabored breathing room air. No lymphadenopathy. Heart: Regular rate and rhythm. Abdomen: Soft, nontender, nondistended. No masses or lymphadenopathy. Data 12/31/24 04:41 12/31/24 04:44 A&P Assessment and plan 1. Upper GI bleed: 2. Melena: Plan: 74-year-old female who presented with melena. I have explained the risks and benefits of a diagnostic EGD with biopsy and the patient agrees to proceed. PDMP PDMP Reviewed: Not Reviewed Coding Level of Care Code 39185 Diagnoses Upper GI bleed K92.2 Melena K92.1
--- NOTE | 2024-12-31 09:49 | PC.NURSE ---
Patient taken to GI lab by MAXX Farooq via bed at 0945. Family present at bedside as patient left room.
--- NOTE | 2024-12-31 09:52 | ANES.PREANE2 ---
Pre-Anesthetic Assessment Height/Weight: Height 1.6 m Weight 71.985 kg Temp Pulse Resp BP Pulse Ox O2 Del Method 98.5 F 82 18 121/68 93 Room Air 12/31/24 07:41 12/31/24 07:41 12/31/24 07:41 12/31/24 07:41 12/31/24 07:41 12/31/24 07:41 Preop Diagnosis: Anemia Operation Date: 12/31/24 10:00 Proposed Procedures p EGD(Not Applicable) - Tyler Larsen MD Familial anesthetic complications: none Was Beta Mykel taken within 24 hours: Yes Last intake: Intake Last Liquid Date 12/30/24 Last Liquid Time 11:30 Last Solid Date 12/30/24 Last Solid Time 11:30 Social No alcohol and No tobacco Exam alert, oriented x 3, clear to auscultation bilaterally and regular rate & rhythm Airway Submandibular: within normal limits Cervical ROM: within normal limits Mallampati: Class II Dentition: false Pulmonary None reported CV/HEM Anemia, Congestive Heart Failure (Pro BNP >400) and Hypertension None reported Hepatic None reported GI Gastroesophageal Reflux Disease Metabolic Diabetes Mellitus and Hyperlipidemia Musc/[facility] Weakness Multiple Sclerosis Neuropsych Cerebrovascular Accident and Deficit Anesthetic Plan ASA status: 3 Anesthesia: MAC Other: GLP1 held x 10 days per note from SNF. Patient states it is a new medication for her. right hemiplegia from previous stroke. Patient denies N/V at this time. Medications/Allergies Home Medications ?Medication ?Instructions ?Recorded ?Confirmed ?Last Taken ?Type vitamins A,C,L-yapw-puddtz 4,296 1 cap PO DAILY 07/08/23 12/31/24 12/30/24 10:05 History mcg-226 mg-90 mg capsule (PreserVision AREDS) acetaminophen 325 mg tablet 650 mg PO QID PRN Fever Or Pain 11/20/24 12/31/24 12/30/24 07:51 History (Tylenol) atorvastatin 40 mg tablet 40 mg PO DAILY 11/20/24 12/31/24 12/30/24 07:51 History baclofen 5 mg tablet 5 mg PO TID PRN JOINT PAIN 11/20/24 12/31/24 12/23/24 06:09 History carvedilol 6.25 mg tablet 6.25 mg PO BID 11/20/24 12/31/24 12/30/24 07:51 History escitalopram oxalate 5 mg tablet 5 mg PO DAILY anxiety 11/20/24 12/31/24 12/30/24 07:51 History loperamide 2 mg tablet (Imodium 2 mg PO DAILY 11/20/24 12/31/24 12/30/24 07:51 History A-D) omeprazole 20 mg capsule,delayed 20 mg PO DAILY 11/20/24 12/31/24 12/30/24 07:51 History release peg 400-propylene glycol 0.4 %-0.3 1 drp ophthalmic (eye) TID 11/20/24 12/31/24 12/30/24 13:18 History % eye drops (Systane (propylene glycol)) potassium chloride 20 mEq 20 meq PO DAILY take with Lasix 11/20/24 12/31/24 12/30/24 07:51 History tablet,extended release(part/cryst) ferrous sulfate 325 mg (65 mg 325 mg PO EVERY OTHER DAY #90 tabs 11/22/24 12/31/24 12/30/24 07:51 Rx iron) tablet furosemide 40 mg tablet (Lasix) 40 mg PO DAILY PRN Edema #1 tab 11/22/24 12/31/24 12/01/24 Rx tramadol 25 mg tablet 25 mg PO QID PRN pain #15 tabs 12/02/24 12/31/24 12/17/24 07:55 Rx bisacodyl 10 mg rectal suppository 10 mg HI DAILY PRN Constipation 12/07/24 12/31/24 12/09/24 11:44 History (Dulcolax (bisacodyl)) oxycodone-acetaminophen 5 mg-325 1 tab PO Q8H PRN Pain 12/31/24 12/31/24 12/15/24 06:57 History mg tablet tirzepatide 5 mg/0.5 mL 5 mg SUBCUT Q7D 12/31/24 12/31/24 12/29/24 06:49 History subcutaneous pen injector (Mounjaro) Allergies Allergy/AdvReac Type Severity Reaction Status Date / Time No Known Allergies Allergy Verified 07/08/23 13:10 Current Medications Generic Name Dose Route Start Last Admin Trade Name Freq PRN Reason Stop Dose Admin Sodium Chloride 1,000 mls @ 50 mls/hr 12/30/24 21:30 12/30/24 21:55 Sodium Chloride 0.9% IV 50 mls/hr .Q20H ATIF Administration Pantoprazole Sodium 40 mg 12/31/24 06:00 12/31/24 06:21 Pantoprazole 40 Mg Sdv IVP 40 mg Q12H ATIF Administration Sucralfate 1 gm 12/30/24 21:30 12/31/24 03:27 Sucralfate 1 Gm/10 Ml Oral Liq Udc PO 1 gm Q6H ATIF Administration PFSH Anesthesia Medical History Family history of lupus anticoagulant disorder Family history of factor V Leiden mutation GERD (gastroesophageal reflux disease) -on PPI Overactive bladder Anemia HLD (hyperlipidemia) -lipid panel ordered -on statin HTN (hypertension) -VSS; continue to monitor -on BB Multiple sclerosis Dementia Hemiplegia and hemiparesis following cerebral infarction affecting right dominant side CVA (cerebral vascular accident) -prior CVA with residual right sided weakness, decreased sensation -noted CT head reported as 5.8 cm subacute non-hemorrhagic infarct in left parietal lobe, stable left hemispheric encephalomalacia. MRI head reported as acute/subacute infarct involving L temporal lobe, numerous flow voids throughout the L cerebral hemisphere consistent with AVM. -Echo: EF=68%, G1DD, no RWMA, trace AR -carotid ultrasound with no significant stenosis -Telemetry monitoring -VSS -Fall/aspiration precautions -PT/ST/OT evaluations appreciated -Continue aspirin, statin added -Troponins noted with no significant delta -noted TSH, A1c, lipid panel Family History Mother Breast cancer Denies family history of Colon cancer Ovarian cancer Prostate cancer Diabetes Heart disease Hypercholesteremia Hypertension Uterine cancer Thyroid disease Stroke Social History Smoking and tobacco/nicotine status: never used tobacco/nicotine Data Anesthesia 12/31/24 04:41 12/31/24 04:44 Short CBC 12/30/24 12/30/24 12/31/24 Range/Units 18:29 20:56 00:53 WBC 9.13 (3.29-11.43) 10^3/uL Hgb 10.20 L 10.00 L 10.10 L (11.27-16.99) g/dL Hct 34.8 L 33.2 L 33.8 L (36-47) % MCV 88.1 (85-98) fl Plt Count 175 (157-399) 10^3/cmm Neut % (Auto) 73.3 % Neut # (Auto) 6.68 (1.8-7.7) 10^3/uL 12/31/24 Range/Units 04:41 WBC 6.51 (3.29-11.43) 10^3/uL Hgb 9.20 L (11.27-16.99) g/dL Hct 31.7 L (36-47) % MCV 90.1 (85-98) fl Plt Count 158 (157-399) 10^3/cmm Neut % (Auto) 64.5 % Neut # (Auto) 4.20 (1.8-7.7) 10^3/uL BMP 12/30/24 12/31/24 18:29 04:44 Sodium 140 143 Potassium 4.3 4.2 Chloride 105 111 H Carbon Dioxide 24 22 BUN 13 9 Creatinine 1.1 H 1.0 H Glucose 124 H 99 Calcium 9.0 8.4 L Cardiac Enzymes 12/31/24 Range/Units 04:41 NT-Pro-B Natriuret Pep 445 H (0-125) pg/mL Liver Function 12/30/24 12/31/24 Range/Units 18:29 04:44 Total Bilirubin 1.3 H 1.0 (0.15-1.2) mg/dL AST 12 10 (0-32) U/L ALT 9 7 (0-33) U/L Alkaline Phosphatase 113 H 100 (35-105) U/L Albumin 3.7 3.0 L (3.5-5.2) g/dL Urine 12/31/24 Range/Units 02:50 Urine Color Dark yellow A (Yellow) Urine Appearance Turbid A (CLEAR) Urine pH 5.5 (5-7) Ur Specific [place] 1.013 (1.005-1.030) Urine Protein 1+ A (Negative) Urine Glucose (UA) Negative (Normal) Urine Ketones Negative (Negative) Urine Nitrate Positive A (Negative) Urine Bilirubin 1+ H (Negative) Ur Leukocyte Esterase 3+ A (Negative) Urine RBC >100 H (0-2) /hpf Urine WBC >100 H (0-5) /hpf Blood Bank 12/30/24 19:16 Blood Type B Positive Rho(D) Type Rh positive Antibody Screen Negative Coags 12/30/24 18:29 PT 13.60 INR 0.97 APTT 27.2 ABG 12/30/24 19:09 Specimen Type Venous Sample Site Not specified Cardiac Studies: Echocardiogram 11/20/24 Echocardiogram Ultrasound 12/10/19
[2024-12-31 11:06] LABS: Hematocrit 32.3 % (36-47); Hemoglobin 9.90 g/dL (11.27-16.99)
--- NOTE | 2024-12-31 11:10 | P.PN_ITS ---
Subjective 2 Subjective: Status post endoscopic evaluation today. Medications: Reviewed: Yes Vitals/I&O/Wt Last Vital Signs Temp 99.3 F 12/31/24 10:50 Pulse 77 12/31/24 10:50 Resp 15 12/31/24 10:50 BP 126/73 12/31/24 10:50 Pulse Ox 95 12/31/24 10:50 O2 Del Method Room Air 12/31/24 10:50 O2 Flow Rate 10 12/31/24 10:13 12/30/24 12/31/24 12/31/24 22:59 06:59 14:59 Intake Total 1000 / 1000 Balance 1000 / 1000 Weight last 48 hrs Weight 71.985 kg Weight 71.713 kg Weight 63.503 kg Physical Exam 2 Narrative: General: No acute distress, AO x3 HEENT: PERRLA, pupils bilaterally equal and reactive, pallors not present Chest: Normal vesicular breath sounds, no added sounds, equal good air entry bilaterally CVS: S1-S2 regular, no murmurs, no tachycardia, no gallops, no rubs Abdomen: Soft, nontender, no organomegaly, bowel sounds present Neuro: No focal deficits, no facial deformity, AO x3, power 5/5 in all limbs Data 12/31/24 11:01 12/31/24 04:44 A&P Assessment and plan 1. Upper GI bleed: 2. Anemia: Plan: Acute anemia, concerns for upper GI bleed -Is on aspirin Plan - Hold all blood thinners - Protonix - Carafate - IV fluids - Monitor hemoglobin 4 hours - Full code - SCDs for DVT prophylaxis - General Surgery consulted for EGD tomorrow, n.p.o. midnight History of CVA with right-sided deficits of right arm flexion contracture Hypertension Hyperlipidemia Overactive bladder GERD Discussed with patient if she develops any blood or black stools to let us know right away, do not ambulate without assistance, risk of orthostatic hypotension, she is on bedrest December 31, 2024 Patient is status post endoscopic evaluation this morning with a EGD which did not show any abnormalities. Esophagus was normal. Mild chronic patchy gastritis was encountered in the stomach. There was no active bleeding. Hemoglobin has remained stable at 9.9 this morning. PDMP PDMP Reviewed: Not Reviewed Attestations 2 Medical Necessity Statement*: Continue to trend H&H. No bleeding encountered today. Closely monitor post endoscopy for any recurrent bleeding. Coding Level of Care Code Acute Code for Chg Fwd Moderate MDM includes number and complexity of problems actively addressed during encounter, amount and/or complexity of data reviewed/ordered and described risk of complication, morbidity or mortality of management as documented Diagnoses Upper GI bleed K92.2 Anemia D64.9
[2024-12-31] MEDS: cefTRIAXone 1,000 mg SDV 1000 MG IVP (16:13)
[2024-12-31 17:41] LABS: Hematocrit 33.8 % (36-47); Hemoglobin 9.90 g/dL (11.27-16.99)
[2025-01-01] VITALS (7 sets, daily range): BP systolic 120–146; BP diastolic 55–73; PULSE 73–82; RESP 15–18; TEMP 36.7–36.9; O2SAT 90–93
[2025-01-01] MEDS: sucralfate 1 gm/10 mL Oral Liq UDC PO ×3 (03:50→15:25)
[2025-01-01 04:21] LABS: Hematocrit 31.6 % (36-47); Hemoglobin 9.50 g/dL (11.27-16.99); Mean Corpuscular HGB Conc 30.1 g/dL (30-55); Mean Corpuscular Hemoglobin 26.5 pg (27-33); Mean Corpuscular Volume 88.0 fl (85-98); Nucleated Red Blood Cells % 0 %; Platelet Count 155 10^3/cmm (157-399); Red Blood Count 3.59 10^6/uL (3.85-5.65); White Blood Count 5.90 10^3/uL (3.29-11.43)
[2025-01-01 04:43] LABS: Alanine Aminotransferase 7 U/L (0-33); Albumin Level 3.2 g/dL (3.5-5.2); Alkaline Phosphatase 94 U/L (35-105); Anion Gap 11.6 (5-19); Aspartate Amino Transferase 10 U/L (0-32); Blood Urea Nitrogen 7 mg/dL (8-23); Calcium 8.4 mg/dL (8.5-10.5); Carbon Dioxide 24 mmol/L (22-29); Chloride 112 mmol/L (98-107); Creatinine Clr Calc Pharmacy 44.5148; Globulin 2.4 g/dL (1.3-4.6); Glucose 81 mg/dL (65-115); Osmolality Calculated 295 mOsm/kg (285-295); Potassium 3.6 mmol/L (3.5-5.1); Sodium 144 mmol/L (136-145); Total Protein 5.6 g/dL (6.6-8.7)
[2025-01-01] MEDS: pantoprazole 40 mg SDV IVP (06:06)
--- NOTE | 2025-01-01 09:38 | PM.DCS ---
Discharge Providers Date of Admission: 12/30/24 19:49 Date of Discharge: January 01, 2025 Attending Provider at Admission: Edwin Padilla MD Attending Provider at Discharge: Kristine Bonilla MD Primary Care Provider: Diana Cosme Diagnoses at Discharge Discharge Diagnosis 1. Upper GI bleed: 2. Anemia: Reason for Visit Reason for Visit: bloody vomit Hospital Course Hospital Course 74 year old female with a past medical history of CVA, with residual right-sided deficits, right arm flexion contracture,factor V mutation, who presented [facility] due to complaints of hematemesis. Hemoccult was positive in the emergency room. Patient was evaluated by general surgery and underwent upper GI endoscopy on December 31, 2024 which did not show any active bleeding. Visualized esophagus was normal. Stomach showed signs of mild chronic patchy gastritis without any active bleeding. Duodenum did not show any acute abnormalities either. Her hemoglobin remained stable during the course of admission between 9.2-10. No further bleeding episodes were encountered during her hospital stay. UA noted turbid urine with positive nitrate, 3+ leukocyte esterase and greater than 100 WBCs raising concern for UTI. Urine culture remains pending at discharge. Per review of recent outpatient cultures, most recent urine culture had revealed ESBL E. coli sensitive to nitrofurantoin. Patient is being discharged with 3 days of nitrofurantoin for uncomplicated cystitis. Physical Exam Narrative: General: No acute distress, AO x3 HEENT: PERRLA, pupils bilaterally equal and reactive, pallors not present Chest: Normal vesicular breath sounds, no added sounds, equal good air entry bilaterally CVS: S1-S2 regular, no murmurs, no tachycardia, no gallops, no rubs Abdomen: Soft, nontender, no organomegaly, bowel sounds present Neuro: No focal deficits, no facial deformity, AO x3, power 5/5 in all limbs Extremities: residual deficits from prior stroke. no new deficits noted this admission Discharge Data Studies Completed and Pending Completed Studies During Hospitalization Category Date Time Status XR chest 1V portable [id number] Stat Exams 12/30/24 18:02 Completed Pending at discharge Category Date Time Status VBG [Venous Blood Gas] Stat Lab 12/30/24 19:09 Results Radiology Impressions Chest X-Ray 12/30/24 18:02 IMPRESSION: Rib fractures on right rib 2 and probably on left ribs 6 and 7. Laboratory Results WBC 5.90 10^3/uL (3.29-11.43) 01/01/25 03:49 RBC 3.59 10^6/uL (3.85-5.65) L 01/01/25 03:49 Hgb 9.50 g/dL (11.27-16.99) L 01/01/25 03:49 Hct 31.6 % (36-47) L 01/01/25 03:49 MCV 88.0 fl (85-98) 01/01/25 03:49 MCH 26.5 pg (27-33) L 01/01/25 03:49 MCHC 30.1 g/dL (30-55) 01/01/25 03:49 RDW 21.3 % (12.1-15.1) H 01/01/25 03:49 Plt Count 155 10^3/cmm (157-399) L 01/01/25 03:49 MPV 9.6 fL (7.4-10.4) 01/01/25 03:49 Neut % (Auto) 53.7 % 01/01/25 03:49 Lymph % (Auto) 30.8 % 01/01/25 03:49 [place] % (Auto) 8.3 % 01/01/25 03:49 Eos % (Auto) 6.3 % 01/01/25 03:49 Baso % (Auto) 0.7 % 01/01/25 03:49 Neut # (Auto) 3.17 10^3/uL (1.8-7.7) 01/01/25 03:49 Lymph # (Auto) 1.8 10^3/uL (0.8-4.8) 01/01/25 03:49 [place] # (Auto) 0.5 10^3/uL (0.2-0.9) 01/01/25 03:49 Eos # (Auto) 0.4 10^3/uL (0.0-0.8) 01/01/25 03:49 Baso # (Auto) 0.0 10^3/uL (0.0-0.1) 01/01/25 03:49 Nucleated RBC % (auto) 0 % 01/01/25 03:49 Nucleated RBCs # 0.0 /100WBC 01/01/25 03:49 PT 13.60 SECONDS (12.1-14.9) 12/30/24 18: INR 0.97 (0.8-1.2) 12/30/24 18:29 APTT 27.2 SECONDS (23.9-36.7) 12/30/24 18:29 Specimen Type Venous 12/30/24 19:09 Sample Site Not specified 12/30/24 19:09 Danny Test N/a 12/30/24 19:09 VBG pH 7.33 (7.32-7.42) 12/30/24 19:09 VBG pCO2 49.3 mmHg (41-51) 12/30/24 19:09 VBG pO2 38.2 mmHg (25-40) 12/30/24 19:09 VBG HCO3 25.8 mmol/L (24-28) 12/30/24 19:09 VBG Base Excess -0.5 mmol/L (-3.0-3.0) 12/30/24 19:09 VBG Hematocrit 31.0 % (37-47) L 12/30/24 19:09 District Or District Office Director ID Bd 12/30/24 19:09 Sodium 144 mmol/L (136-145) 01/01/25 03:49 Potassium 3.6 mmol/L (3.5-5.1) 01/01/25 03:49 Chloride 112 mmol/L (98-107) H 01/01/25 03:49 Carbon Dioxide 24 mmol/L (22-29) 01/01/25 03:49 Anion Gap 11.6 (5-19) 01/01/25 03:49 BUN 7 mg/dL (8-23) L 01/01/25 03:49 Creatinine 1.1 mg/dL (0.5-0.9) H 01/01/25 03:49 GFR Calculation Not Reportable 01/01/25 03:49 Glucose 81 mg/dL (65-115) 01/01/25 03:49 Estimat Average Glucose 134 12/30/24 18:29 Hemoglobin A1c 6.3 % (4.0-6.0) H 12/30/24 18:29 Calculated Osmolality 295 mOsm/kg (285-295) 01/01/25 03:49 Lactic Acid 1.3 mmol/L (0.5-2.2) 12/30/24 18:29 Calcium 8.4 mg/dL (8.5-10.5) L 01/01/25 03:49 Iron 33 ug/dL (37-145) L 12/30/24 18:29 TIBC 168 mcg/dl 12/30/24 18: % Saturation 19.6 % (20-50) L 12/30/24 18: Unsat Iron Binding 135 ug/dL (112-347) 12/30/24 18: Ferritin 96 ng/mL (15-150) 12/30/24 18: Total Bilirubin 0.9 mg/dL (0.15-1.2) 01/01/25 03:49 AST 10 U/L (0-32) 01/01/25 03:49 ALT 7 U/L (0-33) 01/01/25 03:49 Alkaline Phosphatase 94 U/L (35-105) 01/01/25 03:49 NT-Pro-B Natriuret Pep 445 pg/mL (0-125) H 12/31/24 04:41 Total Protein 5.6 g/dL (6.6-8.7) L 01/01/25 03:49 Albumin 3.2 g/dL (3.5-5.2) L 01/01/25 03:49 Globulin 2.4 g/dL (1.3-4.6) 01/01/25 03:49 Triglycerides 202 mg/dL (0-150) H 12/30/24 18:29 Cholesterol 147 mg/dL (0-200) 12/30/24 18:29 LDL Cholesterol, Calc 71 mg/dL (50-129) 12/30/24 18:29 HDL Cholesterol 36 mg/dL (60-100) L 12/30/24 18:29 LDL/HDL Ratio 1.97 RATIO (0.00-3.22) 12/30/24 18: Cholesterol/HDL Ratio 4.08 mg/dL (0.0-4.40) 12/30/24 18: Procalcitonin 0.11 ng/mL (0-0.5) 12/30/24 18:29 TSH 1.85 uIU/mL (0.27-4.20) 12/30/24 18:29 Urine Color Dark yellow (Yellow) A 12/31/24 02:50 Urine Appearance Turbid (CLEAR) A 12/31/24 02:50 Urine pH 5.5 (5-7) 12/31/24 02:50 Ur Specific [place] 1.013 (1.005-1.030) 12/31/24 02:50 Urine Protein 1+ (Negative) A 12/31/24 02:50 Urine Glucose (UA) Negative (Normal) 12/31/24 02:50 Urine Ketones Negative (Negative) 12/31/24 02:50 Urine Blood 3+ (Negative) A 12/31/24 02:50 Urine Nitrate Positive (Negative) A 12/31/24 02:50 Urine Bilirubin 1+ (Negative) H 12/31/24 02:50 Urine Urobilinogen 1.0 mg/dL (Negative) 12/31/24 02:50 Ur Leukocyte Esterase 3+ (Negative) A 12/31/24 02:50 Urine RBC >100 /hpf (0-2) H 12/31/24 02:50 Urine WBC >100 /hpf (0-5) H 12/31/24 02:50 Ur Squamous Epith Cells 6-10 /hpf (0-5) 12/31/24 02:50 Amorphous Sediment Not Reportable 12/31/24 02:50 Urine Bacteria 4+ /hpf (NONE) H 12/31/24 02:50 Hyaline Casts 1.71 /lpf 12/31/24 02:50 Blood Type B Positive 12/30/24 19:16 Rho(D) Type Rh positive 12/30/24 19:16 Antibody Screen Negative 12/30/24 19:16 Vitals Last Vital Signs Temp 98.2 F 01/01/25 07:48 Pulse 82 01/01/25 07:48 Resp 17 01/01/25 07:48 BP 130/58 01/01/25 07:48 Pulse Ox 93 01/01/25 07:48 O2 Del Method Room Air 01/01/25 07:48 O2 Flow Rate 10 12/31/24 10:13 Discharge Plan Discharge Patient Disposition: Xfer SNF Condition: Stable Prescriptions: Continued bisacodyl [Dulcolax (bisacodyl)] 10 mg suppository 10 mg [place] DAILY PRN (Reason: Constipation) PreserVision AREDS 4,296 mcg-226 mg-90 mg capsule 1 cap PO DAILY tramadol 25 mg tablet 25 mg PO QID PRN (Reason: pain) Qty: 15 0RF oxycodone-acetaminophen 5-325 mg tablet 1 tab PO Q8H PRN (Reason: Pain) Mounjaro 5 mg/0.5 mL pen injector 5 mg SUBCUT Q7D atorvastatin 40 mg tablet 40 mg PO DAILY acetaminophen [Tylenol] 325 mg Tablet 650 mg PO QID PRN (Reason: Fever Or Pain) carvedilol 6.25 mg tablet 6.25 mg PO BID loperamide [Imodium A-D] 2 mg Tablet 2 mg PO DAILY potassium chloride 20 mEq tablet,ER particles/crystals 20 meq PO DAILY omeprazole 20 mg capsule,delayed release(DR/EC) 20 mg PO DAILY Systane (propylene glycol) 0.4-0.3 % drops 1 drp ophthalmic (eye) TID escitalopram oxalate 5 mg tablet 5 mg PO DAILY baclofen 5 mg tablet 5 mg PO TID PRN (Reason: JOINT PAIN) furosemide [Lasix] 40 mg tablet 40 mg PO DAILY PRN (Reason: Edema) Qty: 1 0RF Rx Instructions: Dose change only ferrous sulfate 325 mg (65 mg iron) tablet 325 mg PO EVERY OTHER DAY Qty: 90 0RF Discharge Order = DC NOW: Discharge Order (Routine); Ordered 01/01/25 Ordered By: Kristine Bonilla Referrals: Diana Cosme PA [Primary Care Provider, [employer] Associate Professor] - 4-7 days Discharge Diet: Usual diet Patient Instructions: GI Post Discharge Instructions w/ Anesthesia Discharge Attestations Time Spent in Discharge Care*: greater than 30 min Status at Discharge: Cognitive status at discharge: cognitively intact, Behavioral status at discharge: cooperative and dependent in ADL's, Quality Metrics Clinical Quality Measures [ No reported AMI, CVA or VTE this stay] Coding Level of Care Code Acute Code for Chg Fwd Diagnoses Upper GI bleed K92.2 Anemia D64.9
--- NOTE | 2025-01-01 10:25 | PM.DCS ---
Discharge Providers Date of Admission: 12/30/24 19:49 Date of Discharge: January 01, 2025 Attending Provider at Admission: Edwin Padilla MD Attending Provider at Discharge: Kristine Bonilla MD Primary Care Provider: Diana Cosme Diagnoses at Discharge Discharge Diagnosis 1. Upper GI bleed: 2. Anemia: Reason for Visit Reason for Visit: bloody vomit Hospital Course Hospital Course 74 year old female with a past medical history of CVA, with residual right-sided deficits, right arm flexion contracture,factor V mutation, who presented [facility] due to complaints of hematemesis. Hemoccult was positive in the emergency room. Patient was evaluated by general surgery and underwent upper GI endoscopy on December 31, 2024 which did not show any active bleeding. Visualized esophagus was normal. Stomach showed signs of mild chronic patchy gastritis without any active bleeding. Duodenum did not show any acute abnormalities either. Her hemoglobin remained stable during the course of admission between 9.2-10. No further bleeding episodes were encountered during her hospital stay. UA noted turbid urine with positive nitrate, 3+ leukocyte esterase and greater than 100 WBCs raising concern for UTI. Urine culture remains pending at discharge. Per review of recent outpatient cultures, most recent urine culture had revealed ESBL E. coli sensitive to nitrofurantoin. Patient is being discharged with 3 days of nitrofurantoin for uncomplicated cystitis. Discharge Data Studies Completed and Pending Completed Studies During Hospitalization Category Date Time Status XR chest 1V portable [id number] Stat Exams 12/30/24 18:02 Completed Pending at discharge Category Date Time Status VBG [Venous Blood Gas] Stat Lab 12/30/24 19:09 Results Radiology Impressions Chest X-Ray 12/30/24 18:02 IMPRESSION: Rib fractures on right rib 2 and probably on left ribs 6 and 7. Laboratory Results WBC 5.90 10^3/uL (3.29-11.43) 01/01/25 03:49 RBC 3.59 10^6/uL (3.85-5.65) L 01/01/25 03:49 Hgb 9.50 g/dL (11.27-16.99) L 01/01/25 03:49 Hct 31.6 % (36-47) L 01/01/25 03:49 MCV 88.0 fl (85-98) 01/01/25 03:49 MCH 26.5 pg (27-33) L 01/01/25 03:49 MCHC 30.1 g/dL (30-55) 01/01/25 03:49 RDW 21.3 % (12.1-15.1) H 01/01/25 03:49 Plt Count 155 10^3/cmm (157-399) L 01/01/25 03:49 MPV 9.6 fL (7.4-10.4) 01/01/25 03:49 Neut % (Auto) 53.7 % 01/01/25 03:49 Lymph % (Auto) 30.8 % 01/01/25 03:49 [place] % (Auto) 8.3 % 01/01/25 03:49 Eos % (Auto) 6.3 % 01/01/25 03:49 Baso % (Auto) 0.7 % 01/01/25 03:49 Neut # (Auto) 3.17 10^3/uL (1.8-7.7) 01/01/25 03:49 Lymph # (Auto) 1.8 10^3/uL (0.8-4.8) 01/01/25 03:49 [place] # (Auto) 0.5 10^3/uL (0.2-0.9) 01/01/25 03:49 Eos # (Auto) 0.4 10^3/uL (0.0-0.8) 01/01/25 03:49 Baso # (Auto) 0.0 10^3/uL (0.0-0.1) 01/01/25 03:49 Nucleated RBC % (auto) 0 % 01/01/25 03:49 Nucleated RBCs # 0.0 /100WBC 01/01/25 03:49 PT 13.60 SECONDS (12.1-14.9) 12/30/24 18:29 INR 0.97 (0.8-1.2) 12/30/24 18:29 APTT 27.2 SECONDS (23.9-36.7) 12/30/24 18:29 Specimen Type Venous 12/30/24 19:09 Sample Site Not specified 12/30/24 19:09 Danny Test N/a 12/30/24 19:09 VBG pH 7.33 (7.32-7.42) 12/30/24 19:09 VBG pCO2 49.3 mmHg (41-51) 12/30/24 19:09 VBG pO2 38.2 mmHg (25-40) 12/30/24 19:09 VBG HCO3 25.8 mmol/L (24-28) 12/30/24 19:09 VBG Base Excess -0.5 mmol/L (-3.0-3.0) 12/30/24 19:09 VBG Hematocrit 31.0 % (37-47) L 12/30/24 19:09 Collections [employer] Director ID Bd 12/30/24 19:09 Sodium 144 mmol/L (136-145) 01/01/25 03:49 Potassium 3.6 mmol/L (3.5-5.1) 01/01/25 03:49 Chloride 112 mmol/L (98-107) H 01/01/25 03:49 Carbon Dioxide 24 mmol/L (22-29) 01/01/25 03:49 Anion Gap 11.6 (5-19) 01/01/25 03:49 BUN 7 mg/dL (8-23) L 01/01/25 03:49 Creatinine 1.1 mg/dL (0.5-0.9) H 01/01/25 03:49 GFR Calculation Not Reportable 01/01/25 03:49 Glucose 81 mg/dL (65-115) 01/01/25 03:49 Estimat Average Glucose 134 12/30/24 18:29 Hemoglobin A1c 6.3 % (4.0-6.0) H 12/30/24 18:29 Calculated Osmolality 295 mOsm/kg (285-295) 01/01/25 03:49 Lactic Acid 1.3 mmol/L (0.5-2.2) 12/30/24 18:29 Calcium 8.4 mg/dL (8.5-10.5) L 01/01/25 03:49 Iron 33 ug/dL (37-145) L 12/30/24 18:29 TIBC 168 mcg/dl 12/30/24 18:29 % Saturation 19.6 % (20-50) L 12/30/24 18:29 Unsat Iron Binding 135 ug/dL (112-347) 12/30/24 18:29 Ferritin 96 ng/mL (15-150) 12/30/24 18:29 Total Bilirubin 0.9 mg/dL (0.15-1.2) 01/01/25 03:49 AST 10 U/L (0-32) 01/01/25 03:49 ALT 7 U/L (0-33) 01/01/25 03:49 Alkaline Phosphatase 94 U/L (35-105) 01/01/25 03:49 NT-Pro-B Natriuret Pep 445 pg/mL (0-125) H 12/31/24 04:41 Total Protein 5.6 g/dL (6.6-8.7) L 01/01/25 03:49 Albumin 3.2 g/dL (3.5-5.2) L 01/01/25 03:49 Globulin 2.4 g/dL (1.3-4.6) 01/01/25 03:49 Triglycerides 202 mg/dL (0-150) H 12/30/24 18:29 Cholesterol 147 mg/dL (0-200) 12/30/24 18:29 LDL Cholesterol, Calc 71 mg/dL (50-129) 12/30/24 18:29 HDL Cholesterol 36 mg/dL (60-100) L 12/30/24 18:29 LDL/HDL Ratio 1.97 RATIO (0.00-3.22) 12/30/24 18:29 Cholesterol/HDL Ratio 4.08 mg/dL (0.0-4.40) 12/30/24 18:29 Procalcitonin 0.11 ng/mL (0-0.5) 12/30/24 18:29 TSH 1.85 uIU/mL (0.27-4.20) 12/30/24 18:29 Urine Color Dark yellow (Yellow) A 12/31/24 02:50 Urine Appearance Turbid (CLEAR) A 12/31/24 02:50 Urine pH 5.5 (5-7) 12/31/24 02:50 Ur Specific [place] 1.013 (1.005-1.030) 12/31/24 02:50 Urine Protein 1+ (Negative) A 12/31/24 02:50 Urine Glucose (UA) Negative (Normal) 12/31/24 02:50 Urine Ketones Negative (Negative) 12/31/24 02:50 Urine Blood 3+ (Negative) A 12/31/24 02:50 Urine Nitrate Positive (Negative) A 12/31/24 02:50 Urine Bilirubin 1+ (Negative) H 12/31/24 02:50 Urine Urobilinogen 1.0 mg/dL (Negative) 12/31/24 02:50 Ur Leukocyte Esterase 3+ (Negative) A 12/31/24 02:50 Urine RBC >100 /hpf (0-2) H 12/31/24 02:50 Urine WBC >100 /hpf (0-5) H 12/31/24 02:50 Ur Squamous Epith Cells 6-10 /hpf (0-5) 12/31/24 02:50 Amorphous Sediment Not Reportable 12/31/24 02:50 Urine Bacteria 4+ /hpf (NONE) H 12/31/24 02:50 Hyaline Casts 1.71 /lpf 12/31/24 02:50 Blood Type B Positive 12/30/24 19:16 Rho(D) Type Rh positive 12/30/24 19:16 Antibody Screen Negative 12/30/24 19:16 Vitals Last Vital Signs Temp 98.2 F 01/01/25 15:29 Pulse 73 01/01/25 15:29 Resp 17 01/01/25 15:29 BP 132/73 01/01/25 15:29 Pulse Ox 93 01/01/25 15:29 O2 Del Method Room Air 01/01/25 15:29 O2 Flow Rate 10 12/31/24 10:13 Discharge Plan Discharge Patient Disposition: Xfer [facility] Condition: Stable Prescriptions: Continued bisacodyl [Dulcolax (bisacodyl)] 10 mg suppository 10 mg [place] DAILY PRN (Reason: Constipation) PreserVision AREDS 4,296 mcg-226 mg-90 mg capsule 1 cap PO DAILY tramadol 25 mg tablet 25 mg PO QID PRN (Reason: pain) Qty: 15 0RF oxycodone-acetaminophen 5-325 mg tablet 1 tab PO Q8H PRN (Reason: Pain) Mounjaro 5 mg/0.5 mL pen injector 5 mg SUBCUT Q7D atorvastatin 40 mg tablet 40 mg PO DAILY acetaminophen [Tylenol] 325 mg Tablet 650 mg PO QID PRN (Reason: Fever Or Pain) carvedilol 6.25 mg tablet 6.25 mg PO BID loperamide [Imodium A-D] 2 mg Tablet 2 mg PO DAILY potassium chloride 20 mEq tablet,ER particles/crystals 20 meq PO DAILY omeprazole 20 mg capsule,delayed release(DR/EC) 20 mg PO DAILY Systane (propylene glycol) 0.4-0.3 % drops 1 drp ophthalmic (eye) TID escitalopram oxalate 5 mg tablet 5 mg PO DAILY baclofen 5 mg tablet 5 mg PO TID PRN (Reason: JOINT PAIN) furosemide [Lasix] 40 mg tablet 40 mg PO DAILY PRN (Reason: Edema) Qty: 1 0RF Rx Instructions: Dose change only ferrous sulfate 325 mg (65 mg iron) tablet 325 mg PO EVERY OTHER DAY Qty: 90 0RF Referrals: Diana Cosme PA [Primary Care Provider, Physicians Primary Therapist] - 4-7 days Discharge Diet: Usual diet Patient Instructions: GI Post Discharge Instructions w/ Anesthesia Discharge Attestations Status at Discharge: Cognitive status at discharge: cognitively intact, Behavioral status at discharge: cooperative and dependent in ADL's, Coding Level of Care Code Acute Code for g Fwd Diagnoses Upper GI bleed K92.2 Anemia D64.9
--- NOTE | 2025-01-01 11:52 | PC.NURSE ---
This nurse called [facility] to see if they could accept patient back today. Spoke to Rosalba. She called her boss with me on the phone and said they would have to wait until Thursday before accepting patient back.
[2025-01-01] MEDS: cefTRIAXone 1,000 mg SDV 1000 MG IVP (12:26)
[2025-01-02 04:00] VITALS: BP 135/58; PULSE 78; RESP 18; TEMP 36.8; O2SAT 93
[2025-01-02 06:15] LABS: Hematocrit 34.5 % (36-47); Hemoglobin 9.80 g/dL (11.27-16.99); Mean Corpuscular HGB Conc 28.4 g/dL (30-55); Mean Corpuscular Hemoglobin 25.6 pg (27-33); Mean Corpuscular Volume 90.1 fl (85-98); Nucleated Red Blood Cells % 0 %; Platelet Count 181 10^3/cmm (157-399); Red Blood Count 3.83 10^6/uL (3.85-5.65); White Blood Count 5.50 10^3/uL (3.29-11.43)
[2025-01-02 06:24] LABS: Alanine Aminotransferase 7 U/L (0-33); Albumin Level 3.0 g/dL (3.5-5.2); Alkaline Phosphatase 90 U/L (35-105); Anion Gap 16.0 (5-19); Aspartate Amino Transferase 11 U/L (0-32); Blood Urea Nitrogen 7 mg/dL (8-23); Calcium 8.5 mg/dL (8.5-10.5); Carbon Dioxide 21 mmol/L (22-29); Chloride 111 mmol/L (98-107); Creatinine Clr Calc Pharmacy 43.9058; Globulin 2.6 g/dL (1.3-4.6); Glucose 98 mg/dL (65-115); Osmolality Calculated 296 mOsm/kg (285-295); Potassium 4.0 mmol/L (3.5-5.1); Sodium 144 mmol/L (136-145); Total Protein 5.6 g/dL (6.6-8.7)
[2025-01-02 07:32] VITALS: BP 130/51; PULSE 80; RESP 18; TEMP 36.8; O2SAT 92
--- NOTE | 2025-01-02 10:37 | PM.DCS ---
Discharge Providers Date of Admission: 12/30/24 19:49 Date of Discharge: January 03, 2025 Attending Provider at Admission: Edwin Padilla MD Attending Provider at Discharge: Nirav Perez MD Primary Care Provider: Diana Cosme Diagnoses at Discharge Discharge Diagnosis 1. Upper GI bleed: 2. Anemia: Reason for Visit Reason for Visit: bloody vomit Hospital Course Hospital Course 74 year old female with a past medical history of CVA, with residual right-sided deficits, right arm flexion contracture, factor V mutation, who presented [facility] due to complaints of hematemesis. Hemoccult was positive in the emergency room. Patient was evaluated by general surgery and underwent upper GI endoscopy on December 31, 2024 which did not show any active bleeding. Visualized esophagus was normal. Stomach showed signs of mild chronic patchy gastritis without any active bleeding. Duodenum did not show any acute abnormalities either. Her hemoglobin remained stable during the course of admission between 9.2-10. No further bleeding episodes were encountered during her hospital stay. UA noted turbid urine with positive nitrate, 3+ leukocyte esterase and greater than 100 WBCs raising concern for UTI. Urine culture remains pending at discharge. Per review of recent outpatient cultures, most recent urine culture had revealed ESBL E. coli sensitive to nitrofurantoin. Patient is being discharged with 3 days of nitrofurantoin for uncomplicated cystitis. Adding bowel regimen for ongoing constipation. Physical Exam Const: COMMON NORMALS: no acute distress, patient oriented x3 and no limitations HENMT: COMMON NORMALS: normocephalic HEAD & SCALP: normocephalic FACE & SINUS: other (chronic left sided facial swelling) Resp: COMMON NORMALS: normal respiratory effort and No retractions Cardio: COMMON NORMALS: regular rate, regular rhythm, S1 normal heart sound present, S2 normal heart sound present and No gallops present (Cardio) RATE: regular rate RHYTHM: regular rhythm HEART SOUNDS: S1 normal heart sound present and S2 normal heart sound present GI: COMMON NORMALS: Soft to palpation, non-tender and no masses PALPATION: Yes Soft to palpation Neuro: COMMON NORMALS: patient oriented x3 OTHER: chronic right UE contracture from prior stroke. Psych: COMMON NORMALS: mental status grossly normal, Normal thought process present and cooperative THOUGHT PROCESS: Normal thought process present Discharge Data Studies Completed and Pending Completed Studies During Hospitalization Category Date Time Status XR chest 1V portable [id number] Stat Exams 12/30/24 18:02 Completed Pending at discharge Category Date Time Status VBG [Venous Blood Gas] Stat Lab 12/30/24 19:09 Results Radiology Impressions Chest X-Ray 12/30/24 18:02 IMPRESSION: Rib fractures on right rib 2 and probably on left ribs 6 and 7. Laboratory Results WBC 5.50 10^3/uL (3.29-11.43) 01/02/25 05:49 RBC 3.83 10^6/uL (3.85-5.65) L 01/02/25 05:49 Hgb 9.80 g/dL (11.27-16.99) L 01/02/25 05:49 Hct 34.5 % (36-47) L 01/02/25 05:49 MCV 90.1 fl (85-98) 01/02/25 05:49 MCH 25.6 pg (27-33) L 01/02/25 05:49 MCHC 28.4 g/dL (30-55) L D 01/02/25 05:49 RDW 21.2 % (12.1-15.1) H 01/02/25 05:49 Plt Count 181 10^3/cmm (157-399) 01/02/25 05:49 MPV 9.8 fL (7.4-10.4) 01/02/25 05:49 Neut % (Auto) 58.0 % 01/02/25 05:49 Lymph % (Auto) 26.4 % 01/02/25 05:49 Hand % (Auto) 8.5 % 01/02/25 05:49 Eos % (Auto) 6.2 % 01/02/25 05:49 Baso % (Auto) 0.7 % 01/02/25 05:49 Neut # (Auto) 3.19 10^3/uL (1.8-7.7) 01/02/25 05:49 Lymph # (Auto) 1.5 10^3/uL (0.8-4.8) 01/02/25 05:49 Hand # (Auto) 0.5 10^3/uL (0.2-0.9) 01/02/25 05:49 Eos # (Auto) 0.3 10^3/uL (0.0-0.8) 01/02/25 05:49 Baso # (Auto) 0.0 10^3/uL (0.0-0.1) 01/02/25 05:49 Nucleated RBC % (auto) 0 % 01/02/25 05:49 Nucleated RBCs # 0.0 /100WBC 01/02/25 05:49 PT 13.60 SECONDS (12.1-14.9) 12/30/24 18: INR 0.97 (0.8-1.2) 12/30/24 18: APTT 27.2 SECONDS (23.9-36.7) 12/30/24 18:29 Specimen Type Venous 12/30/24 19:09 Sample Site Not specified 12/30/24 19:09 Danny Test N/a 12/30/24 19:09 VBG pH 7.33 (7.32-7.42) 12/30/24 19:09 VBG pCO2 49.3 mmHg (41-51) 12/30/24 19:09 VBG pO2 38.2 mmHg (25-40) 12/30/24 19:09 VBG HCO3 25.8 mmol/L (24-28) 12/30/24 19:09 VBG Base Excess -0.5 mmol/L (-3.0-3.0) 12/30/24 19:09 VBG Hematocrit 31.0 % (37-47) L 12/30/24 19:09 Curer [employer]am [employer] ID Bd 12/30/24 19:09 Sodium 144 mmol/L (136-145) 01/02/25 05:49 Potassium 4.0 mmol/L (3.5-5.1) 01/02/25 05:49 Chloride 111 mmol/L (98-107) H 01/02/25 05:49 Carbon Dioxide 21 mmol/L (22-29) L 01/02/25 05:49 Anion Gap 16.0 (5-19) 01/02/25 05:49 BUN 7 mg/dL (8-23) L 01/02/25 05:49 Creatinine 1.1 mg/dL (0.5-0.9) H 01/02/25 05:49 GFR Calculation Not Reportable 01/02/25 05:49 Glucose 98 mg/dL (65-115) 01/02/25 05:49 Estimat Average Glucose 134 12/30/24 18:29 Hemoglobin A1c 6.3 % (4.0-6.0) H 12/30/24 18:29 Calculated Osmolality 296 mOsm/kg (285-295) H 01/02/25 05:49 Lactic Acid 1.3 mmol/L (0.5-2.2) 12/30/24 18:29 Calcium 8.5 mg/dL (8.5-10.5) 01/02/25 05:49 Iron 33 ug/dL (37-145) L 12/30/24 18:29 TIBC 168 mcg/dl 12/30/24 18:29 % Saturation 19.6 % (20-50) L 12/30/24 18: Unsat Iron Binding 135 ug/dL (112-347) 12/30/24 18: Ferritin 96 ng/mL (15-150) 12/30/24 18:29 Total Bilirubin 0.7 mg/dL (0.15-1.2) 01/02/25 05:49 AST 11 U/L (0-32) 01/02/25 05:49 ALT 7 U/L (0-33) 01/02/25 05:49 Alkaline Phosphatase 90 U/L (35-105) 01/02/25 05:49 NT-Pro-B Natriuret Pep 445 pg/mL (0-125) H 12/31/24 04:41 Total Protein 5.6 g/dL (6.6-8.7) L 01/02/25 05:49 Albumin 3.0 g/dL (3.5-5.2) L 01/02/25 05:49 Globulin 2.6 g/dL (1.3-4.6) 01/02/25 05:49 Triglycerides 202 mg/dL (0-150) H 12/30/24 18:29 Cholesterol 147 mg/dL (0-200) 12/30/24 18:29 LDL Cholesterol, Calc 71 mg/dL (50-129) 12/30/24 18: HDL Cholesterol 36 mg/dL (60-100) L 12/30/24 18:29 LDL/HDL Ratio 1.97 RATIO (0.00-3.22) 12/30/24 18:29 Cholesterol/HDL Ratio 4.08 mg/dL (0.0-4.40) 12/30/24 18:29 Procalcitonin 0.11 ng/mL (0-0.5) 12/30/24 18:29 TSH 1.85 uIU/mL (0.27-4.20) 12/30/24 18:29 Urine Color Dark yellow (Yellow) A 12/31/24 02:50 Urine Appearance Turbid (CLEAR) A 12/31/24 02:50 Urine pH 5.5 (5-7) 12/31/24 02:50 Ur Specific [place] 1.013 (1.005-1.030) 12/31/24 02:50 Urine Protein 1+ (Negative) A 12/31/24 02:50 Urine Glucose (UA) Negative (Normal) 12/31/24 02:50 Urine Ketones Negative (Negative) 12/31/24 02:50 Urine Blood 3+ (Negative) A 12/31/24 02:50 Urine Nitrate Positive (Negative) A 12/31/24 02:50 Urine Bilirubin 1+ (Negative) H 12/31/24 02:50 Urine Urobilinogen 1.0 mg/dL (Negative) 12/31/24 02:50 Ur Leukocyte Esterase 3+ (Negative) A 12/31/24 02:50 Urine RBC >100 /hpf (0-2) H 12/31/24 02:50 Urine WBC >100 /hpf (0-5) H 12/31/24 02:50 Ur Squamous Epith Cells 6-10 /hpf (0-5) 12/31/24 02:50 Amorphous Sediment Not Reportable 12/31/24 02:50 Urine Bacteria 4+ /hpf (NONE) H 12/31/24 02:50 Hyaline Casts 1.71 /lpf 12/31/24 02:50 Blood Type B Positive 12/30/24 19:16 Rho(D) Type Rh positive 12/30/24 19:16 Antibody Screen Negative 12/30/24 19:16 Vitals Last Vital Signs Temp 98.3 F 01/02/25 07:32 Pulse 80 01/02/25 07:32 Resp 18 01/02/25 07:32 BP 130/51 01/02/25 07:32 Pulse Ox 92 01/02/25 07:32 O2 Del Method Room Air 01/02/25 07:32 O2 Flow Rate 10 12/31/24 10:13 Discharge Plan Discharge Patient Disposition: Xfer [facility] Condition: Stable Prescriptions: New nitrofurantoin macrocrystal 100 mg capsule 100 mg PO BID 3 Days Qty: 6 0RF Rx Instructions: must administer with a meal/food polyethylene glycol 3350 17 gram Powder In Packet 17 g PO BID PRN (Reason: Constipation) Qty: 14 0RF sennosides-docusate sodium [Stool Softener-Laxative] 8.6-50 mg Tablet 1 tab PO BID PRN (Reason: Constipation) Qty: 14 0RF magnesium hydroxide [Milk of Magnesia] 400 mg/5 mL Suspension 30 ml PO DAILY PRN (Reason: Constipation) Qty: 15 0RF Continued bisacodyl [Dulcolax (bisacodyl)] 10 mg suppository 10 mg AL DAILY PRN (Reason: Constipation) PreserVision AREDS 4,296 mcg-226 mg-90 mg capsule 1 cap PO DAILY tramadol 25 mg tablet 25 mg PO QID PRN (Reason: pain) Qty: 15 0RF oxycodone-acetaminophen 5-325 mg tablet 1 tab PO Q8H PRN (Reason: Pain) Mounjaro 5 mg/0.5 mL pen injector 5 mg SUBCUT Q7D atorvastatin 40 mg tablet 40 mg PO DAILY acetaminophen [Tylenol] 325 mg Tablet 650 mg PO QID PRN (Reason: Fever Or Pain) carvedilol 6.25 mg tablet 6.25 mg PO BID loperamide [Imodium A-D] 2 mg Tablet 2 mg PO DAILY potassium chloride 20 mEq tablet,ER particles/crystals 20 meq PO DAILY omeprazole 20 mg capsule,delayed release(DR/EC) 20 mg PO DAILY Systane (propylene glycol) 0.4-0.3 % drops 1 drp ophthalmic (eye) TID escitalopram oxalate 5 mg tablet 5 mg PO DAILY baclofen 5 mg tablet 5 mg PO TID PRN (Reason: JOINT PAIN) furosemide [Lasix] 40 mg tablet 40 mg PO DAILY PRN (Reason: Edema) Qty: 1 0RF Rx Instructions: Dose change only ferrous sulfate 325 mg (65 mg iron) tablet 325 mg PO EVERY OTHER DAY Qty: 90 0RF Discharge Order = DC NOW: Discharge Order (Routine); Ordered 01/02/25 Ordered By: Nirav Perez Referrals: [facility] [Outside] Diana Cosme PA [Primary Care Provider, Physicians Order Checker] - 4-7 days Discharge Diet: Usual diet Patient Instructions: Nitrofurantoin (By mouth) (Furadantin), Laxative, Stimulant (By mouth) (Dulcolax, EX-Lax, Fleet Bisacodyl,..., Polyethylene Glycol 3350 (By mouth) (Miralax, Healthylax..., Magnesium Hydroxide (By mouth) (Dulcolax Milk of Magnesia, Milk Of..., Gastrointestinal Bleeding (DC), Melena (ED), GI Post Discharge Instructions w/ Anesthesia Discharge Attestations Time Spent in Discharge Care*: greater than 30 min Status at Discharge: Cognitive status at discharge: cognitively intact, Behavioral status at discharge: cooperative and dependent in ADL's, Quality Metrics Clinical Quality Measures [ No reported AMI, CVA or VTE this stay] Coding Level of Care Code Acute Code for Chg Fwd Diagnoses Upper GI bleed K92.2 Anemia D64.9
[2025-01-02 11:11] VITALS: BP 109/63; PULSE 77; RESP 17; TEMP 36.7; O2SAT 93
--- NOTE | 2025-01-02 14:36 | PC.SOCIAL ---
*IMM Update. Signed and dated , placed in chart. Copy gave to patient.
== END 2025-01-02 13:08 | disposition skilled nursing facility (03) | DRG 689 ==
LOC: ER 19:27 → MEDSURG 20:22
PROVIDERS: Student in an Organized Health Care Education/Training Program; Admitting Provider Family Medicine; Emergency Provider Physician Assistant; PCP Physician Assistant; Visit Provider Internal Medicine
PROC: 0DJ08ZZ Inspection of Upper Intestinal Tract, Via Natural or Artificial Opening Endoscopic (ICD-10-PCS; principal; 2024-12-31 10:00)
DX: N30.90 Cystitis, unspecified without hematuria (principal); K29.51 Unspecified chronic gastritis with bleeding; D68.51 Activated protein C resistance; I69.953 Hemiplegia and hemiparesis following unspecified cerebrovascular disease affecting right non-dominant side; D64.9 Anemia, unspecified; M24.50 Contracture, unspecified joint; R29.6 Repeated falls; K21.9 Gastro-esophageal reflux disease without esophagitis; N32.81 Overactive bladder; E78.5 Hyperlipidemia, unspecified; I10 Essential (primary) hypertension; G35 Multiple sclerosis; F03.90 Unspecified dementia, unspecified severity, without behavioral disturbance, psychotic disturbance, mood disturbance, and anxiety; Z79.891 Long term (current) use of opiate analgesic
CPT/HCPCS: 36415; 71045; 80053; 80061; 81001; 82728; 82803; 83036; 83540; 83550; 83605; 83880; 84145; 84443; 85014; 85018; 85025; 85610; 85730; 86850; 86900; 94664; 96361; 96374; 99285; J0696; J2371; J2470; J2704; J7030; J9999

== ENCOUNTER → 2025-01-25 06:04 | Day surgery (SDC) | payer MEDICARE, MEDICAID, SELFPAY ==
--- NOTE | 2024-12-19 10:23 | ANES.PREANE2 ---
Pre-Anesthetic Assessment Height/Weight: Height 5 ft 3 in Operation Date: 12/29/24 11:15 Proposed Procedures p EGD with Biopsy [id number] G0105, E61.1(Not Applicable) - Pino Leroy MD s Colonoscopy(Not Applicable) - Pino Leroy MD Anesthetic Plan Other: Patient arrives today for preanesthesia evaluation from nursing facility, appears fairly confused. Unable to answer questions about her medical history She does not have any family present currently Per chart review patient was recently seen in the emergency room after falling from the commode Patient has a large medical history including CVA with right sided residual weakness History of MS Hypertension on carvedilol GERD Labs from 12/02/2024 reviewed and acceptable for procedure EKG showing sinus rhythm Echo from 2023 showing EF 65% with no RWMA Will plan on speaking with family day of procedure to discuss risks of anesthesia Medications/Allergies Home Medications ?Medication ?Instructions ?Recorded ?Confirmed ?Last Taken ?Type vitamins A,C,I-tdeg-ixhysx 4,296 1 cap PO BID 07/08/23 12/07/24 Unknown History mcg-226 mg-90 mg capsule (PreserVision AREDS) acetaminophen 325 mg tablet 650 mg PO QID PRN Fever Or Pain 11/20/24 11/20/24 11/19/24 06:05 History (Tylenol) aspirin 81 mg tablet,delayed 81 mg PO DAILY 11/20/24 11/20/24 11/20/24 08:50 History release (Slava Low Dose Aspirin) atorvastatin 40 mg tablet 40 mg PO DAILY 11/20/24 12/07/24 11/19/24 19:25 History baclofen 5 mg tablet 5 mg PO TID PRN JOINT PAIN 11/20/24 12/07/24 11/14/24 18:45 History carvedilol 6.25 mg tablet 6.25 mg PO BID 11/20/24 12/07/24 11/19/24 19:20 History escitalopram oxalate 5 mg tablet 5 mg PO DAILY anxiety 11/20/24 12/07/24 11/20/24 08:50 History fluticasone propionate 50 1 spray intranasal DAILY PRN 11/20/24 12/07/24 Unknown History mcg/actuation nasal Allergy Symptoms spray,suspension loperamide 2 mg tablet (Imodium 2 mg PO DAILY 11/20/24 12/07/24 11/20/24 08:50 History A-D) menthol 4 % topical gel (Biofreeze 1 applic topical BID PRN Pain 11/20/24 12/07/24 Unknown History (menthol)) omeprazole 20 mg capsule,delayed 20 mg PO DAILY 11/20/24 12/07/24 11/20/24 08:50 History release peg 400-propylene glycol 0.4 %-0.3 1 drp ophthalmic (eye) TID 11/20/24 12/07/24 11/20/24 08:50 History % eye drops (Systane (propylene glycol)) potassium chloride 20 mEq 20 meq PO DAILY take with Lasix 11/20/24 12/07/24 11/20/24 08:50 History tablet,extended release(part/cryst) ferrous sulfate 325 mg (65 mg 325 mg PO EVERY OTHER DAY #90 tabs 11/22/24 12/07/24 Unknown Rx iron) tablet furosemide 40 mg tablet (Lasix) 40 mg PO DAILY PRN Edema #1 tab 11/22/24 12/07/24 11/20/24 08:50 Rx tramadol 25 mg tablet 25 mg PO QID PRN pain #15 tabs 12/02/24 12/07/24 Unknown Rx RSV vac, preF A and preF B(PF) 120 ml IM 12/07/24 12/07/24 Unknown History mcg/0.5 mL IM solution (Abrysvo (PF)) acyclovir 800 mg tablet 800 mg PO .COMPLEX 12/07/24 12/07/24 Unknown History bisacodyl 10 mg rectal suppository 10 mg [place] DAILY PRN 12/07/24 12/07/24 Unknown History (Dulcolax (bisacodyl)) flu vac [id number] 36mos up(PF) 60 ml IM 12/07/24 12/07/24 Unknown History mcg (15 mcg x4)/0.5 mL IM syringe polyethylene glycol 3350 17 17 g PO ONCE 5 days #85 grams 12/07/24 12/07/24 Unknown Rx gram/dose oral powder (Miralax) tirzepatide 2.5 mg/0.5 mL mg SUBCUT 12/07/24 12/07/24 Unknown History subcutaneous pen injector (Ambreen) Allergies Allergy/AdvReac Type Severity Reaction Status Date / Time No Known Allergies Allergy Verified 07/08/23 13:10 [facility] Anesthesia Medical History (Updated 12/12/24 @ 19:23 by Donita Andrews MD) Family history of lupus anticoagulant disorder Family history of factor V Leiden mutation GERD (gastroesophageal reflux disease) -on PPI Overactive bladder Anemia HLD (hyperlipidemia) -lipid panel ordered -on statin HTN (hypertension) -VSS; continue to monitor -on BB Multiple sclerosis Dementia Hemiplegia and hemiparesis following cerebral infarction affecting right dominant side CVA (cerebral vascular accident) -prior CVA with residual right sided weakness, decreased sensation -noted CT head reported as 5.8 cm subacute non-hemorrhagic infarct in left parietal lobe, stable left hemispheric encephalomalacia. MRI head reported as acute/subacute infarct involving L temporal lobe, numerous flow voids throughout the L cerebral hemisphere consistent with AVM. -Echo: EF=68%, G1DD, no RWMA, trace AR -carotid ultrasound with no significant stenosis -Telemetry monitoring -VSS -Fall/aspiration precautions -PT/ST/OT evaluations appreciated -Continue aspirin, statin added -Troponins noted with no significant delta -noted TSH, A1c, lipid panel Family History Mother Breast cancer Denies family history of Colon cancer Ovarian cancer Prostate cancer Diabetes Heart disease Hypercholesteremia Hypertension Uterine cancer Thyroid disease Stroke Social History Smoking and tobacco/nicotine status: never used tobacco/nicotine Data Anesthesia Cardiac Studies: Echocardiogram 11/20/24 Echocardiogram Ultrasound 12/10/19
[2025-01-25 06:29] VITALS: BP 138/53; PULSE 84; RESP 20; TEMP 36.6; O2SAT 96; BMI 29.0
--- NOTE | 2025-01-25 07:22 | PC.NURSE ---
0710-Took patient to the ER per anesthesia request. Pt's sister said that the pt had been more lethargic the last 2 days and not answering questions like normal and not feeling herself. Pt said she was SOB, and her O2sat was 85% on room air. Pt does not wear oxygen at the AL. After anesthesia had assessed her and spoke to Dr Leroy, the decision was made to take pt to the ER.
== END ==
LOC: GILAB 06:07
PROVIDERS: PCP Physician Assistant; Visit Provider Surgery
PROC: 0DJ08ZZ Inspection of Upper Intestinal Tract, Via Natural or Artificial Opening Endoscopic (ICD-10-PCS; principal; 2025-01-25 15:45)
PROC: 0DJD8ZZ Inspection of Lower Intestinal Tract, Via Natural or Artificial Opening Endoscopic (ICD-10-PCS; CPT 45378; 2025-01-25 15:45)
DX: Z53.8 Procedure and treatment not carried out for other reasons (principal)

== ENCOUNTER 2025-01-25 07:15 | Inpatient (IN) | payer MEDICARE, MEDICAID, SELFPAY ==
[2025-01-25] VITALS (7 sets, daily range): BP systolic 129–148; BP diastolic 57–93; PULSE 77–96; RESP 16–25; TEMP 36.6–37.3; O2SAT 86–98
--- NOTE | 2025-01-25 07:17 | XR_ITS ---
WS: [id number] Portable AP upright chest, 01/25/2025 Clinical Data: sob Comparison: Portable chest, 12/30/2024 Findings: No nodules, masses or effusions are seen. The heart is normal. The pulmonary vascularity is increased. No pneumonia or pneumothorax is seen. The old rib fractures not changed. There is an old fracture of the right humeral head and neck. XR/XR chest 1V portable [id number] Impression: Moderate pulmonary vascular congestion.
--- NOTE | 2025-01-25 07:17 | CT_ITS ---
WS: [id number] CT HEAD NONCONTRAST HISTORY: weakness TECHNIQUE: Contiguous axial imaging performed through the brain. Bone and soft tissue windows. Sagittal and coronal reformats reviewed. All CT scans at [facility] use at least one of these dose optimization techniques: automated exposure control; mA and/or kV adjustment per patient size (includes targeted exams where dose is matched to clinical indication); or iterative reconstruction. DLP: 1014.42 mGy.cm COMPARISON: 12/12/2024, 11/11/2021, 06/21/2023 No acute intracranial hemorrhage, midline shift or mass effect. Moderate atrophy, greater atrophy involving the LEFT temporal and parietal lobes. There are numerous calcifications within the LEFT cerebral, greatest distribution in the LEFT temporal and parietal lobes, likely due to treated AVM. There are a few calcifications also noted in the RIGHT basal ganglia. Ventricles: Mild ex vacuo dilatation of the LEFT lateral ventricle No inferior displacement of the cerebellar tonsils. Paranasal sinuses: As visualized are clear. Mastoid air cells: Well pneumatized. Calvarium and scalp: Skull is intact with no soft tissue edema or swelling. CT/CT head wo con* [id number] IMPRESSION: 1. No acute intracranial hemorrhage or edema. 2. Numerous calcifications in the LEFT temporoparietal lobes consistent with a treated AVM. 3. Volume loss in the LEFT temporal lobe and parietal lobe with ex vacuo dilat ation of the adjacent lateral ventricle. No acute interval change.
--- NOTE | 2025-01-25 07:18 | ECG_ITS ---
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 Measurements Intervals [place] Rate: 85 P: 21 MS: 129 QRS: 13 QRSD: 91 T: 22 QT: 374 QTc: 447 Interpretive Statements SINUS RHYTHM Compared to ECG 12/02/2024 14:57:03 No significant changes Electronically Signed On 01-25-2025 17:33:09 CDT by Iram Power M.D. [email or web address]
--- OUTSIDE RECORDS SUMMARY | 2025-01-25 07:30 | XMS_ITS | Encounter Summary ---
Author Organization [facility] Address [address] [place] [address] Care Team Providers Care Line Installation Supervisor Name Role Phone Unavailable Primary Care Provider Unavailabl e Encounter Details Date Type Department Care Team (Late st Contact Info) Description 12/07/2019 Lab Requisition [facility] [employer] [employer] [address] [place] [address] Bernabe Cuellar, [address] [facility] [address] [place] [id number] Social History Tobacco Use Types Packs/Day Years [...] - 150.0 ng/mL 12/07/2019 2:50 PM CDT [facility] Blood Collection / Unknown 12/07/2019 8:48 AM CDT 12/07/2019 2:26 PM CDT Narrative [facility] - 12/07/2019 2:50 PM CDT Premenopausal Range 10-150 ng/mL Postmenopausal Range 10-291 ng/mL Bernabe Cuellar DO CHEMISTRY ORDERABLES Final Result Performing Organization Address City/[facility]/ZIP Co de Phone Number [address] [address] * (ABNORMAL) IRON, TIBC, AND PERCENT SATURATION (12/07/2019 8:48 AM CDT) IRON 79 37 - 145 ug/dL 12/07/2019 2:50 PM CDT [facility] TIBC 238(L) 250 - 450 ug/dL 12/07/2019 2:50 PM CDT [facility] IRON % SATURATION 33 15 - 60 % 12/07/2019 2:50 PM CDT [facility] Blood Collection / Unknown 12/07/2019 8:48 AM CDT 12/07/2019 2:26 PM CDT Bernabe Cuellar DO CHEMISTRY ORDERABLES Final Result Performing Organization Address [facility]/ZIP Co de Phone Number [address] [address] * TSH (12/07/2019 8:48 AM CDT) TSH 1.38 0.27 - 4.20 uIU/mL 12/07/2019 2:50 PM CDT [facility] Blood Collection / Unknown 12/07/2019 8:48 AM CDT 12/07/2019 2:26 PM CDT Bernabe Cuellar DO CHEMISTRY ORDERABLES Final Result [facility] [address] [place] [address] * (ABNORMAL) BASIC METABOLIC PANEL (12/07/2019 8:48 AM CDT) SODIUM 144 136 - 145 mmol/L 12/07/2019 2:50 PM CDT [facility] POTASSIUM 4.5 3.5 - 5.1 mmol/L 12/07/2019 2:50 PM CDT [facility] CHLORIDE 109(H) 98 - 107 mmol/L 12/07/2019 2:50 PM CDT [facility] CO2 22 22 - 29 mmol/L 12/07/2019 2:50 PM CDT [facility] CALCIUM 10.1 8.8 - 10.2 mg/dL 12/07/2019 2:50 PM CDT [facility] BUN 38(H) 8 - 23 mg/dL 12/07/2019 2:50 PM CDT [facility] CREATININE 1.43(H) 0.51 - 0.95 mg/dL 12/07/2019 2:50 PM CDT [facility] GLUCOSE 117(H) 74 - 99 mg/dL 12/07/2019 2:50 PM CDT [facility] GFR 37(L) >=60 mL/min/1. 73 sq meter 12/07/2019 2:50 PM CDT [facility] Comment: eGFR has not been validated [...] 73 sq meter 12/07/2019 2:50 PM CDT [facility] ANION GAP 13 9 - 20 mmol/L 12/07/2019 2:50 PM CDT [facility] Blood Collection / Unknown 12/07/2019 8:48 AM CDT 12/07/2019 2:26 PM CDT Bernabe Cuellar DO CHEMISTRY ORDERABLES Final Result [facility] [address] [place] [address] * (ABNORMAL) CBC WITH DIFFERENTIAL (12/07/2019 8:48 AM CDT) Pathologist [facility] WBC 9.0 4.8 - 10.8 K/uL 12/07/2019 2:27 PM CDT [facility] RBC 4.36 4.20 - 5.40 M/uL 12/07/2019 2:27 PM CDT [facility] HEMOGLOBIN 13.0 12.0 - 16.0 g/dL 12/07/2019 2:27 PM CDT [facility] HEMATOCRIT 40.8 36.0 - 46.0 % 12/07/2019 2:27 PM CDT [facility] MCV 93.6 84.0 - 103.0 fL 12/07/2019 2:27 PM CDT [facility] MCH 29.8 27.0 - 34.0 pg 12/07/2019 2:27 PM CDT [facility] MCHC 31.9 30.0 - 35.0 g/dL 12/07/2019 2:27 PM CDT [facility] RDW 13.3 11.0 - 14.5 % 12/07/2019 2:27 PM CDT [facility] RDW-STDEV 45.2 37.0 - 54.0 fL 12/07/2019 2:27 PM CDT [facility] PLATELETS 256 140 - 440 K/uL 12/07/2019 2:27 PM CDT [facility] MPV 10.4 8.9 - 12.8 fL 12/07/2019 2:27 PM CDT [facility] NEUTROPHILS 69 42 - 75 % 12/07/2019 2:27 PM CDT [facility] LYMPHOCYTES 19(L) 24 - 44 % 12/07/2019 2:27 PM CDT [facility] MONOCYTES 8 2 - 10 % 12/07/2019 2:27 PM CDT [facility] EOSINOPHILS 2 0 - 7 % 12/07/2019 2:27 PM CDT [facility] BASOPHILS 1 0 - 1 % 12/07/2019 2:27 PM CDT [facility] IMMATURE GRANULOCYTES 1 0 - 2 % 12/07/2019 2:27 PM CDT [facility] NEUTROPHIL ABSOLUTE 6.21 2.00 - 8.00 K/uL 12/07/2019 2:27 PM CDT [facility] LYMPHOCYTE ABSOLUTE 1.74 1.20 - 4.00 K/uL 12/07/2019 2:27 PM CDT [facility] MONOCYTE ABSOLUTE 0.73(H) 0.10 - 0.60 K/uL 12/07/2019 2:27 PM CDT [facility] EOSINOPHIL ABSOLUTE 0.19 0.00 - 0.70 K/uL 12/07/2019 2:27 PM CDT [facility] BASOPHILS ABSOLUTE 0.07 0.00 - 0.20 K/uL 12/07/2019 2:27 PM CDT [facility] IMMATURE GRANULOCYTES ABSOLUTE 0.05 0.00 - 0.10 K/uL 12/07/2019 2:27 PM CDT [facility] Blood Collection / Unknown 12/07/2019 8:48 AM CDT 12/07/2019 2:24 PM CDT us Bernabe Cuellar DO HEMATOLOGY ORDERABLES Final Result [facility] [address] [place] [address] documented in this encounter Visit Diagnoses Not on filedocumented in this encounter
--- OUTSIDE RECORDS SUMMARY | 2025-01-25 07:30 | XMS_ITS | Clinical Summary ---
Author Organization [facility] Address [address] [place] [address] Phone Care Team Providers Care Overnight Associate Name Role Phone Unavailable Primary Care Provider [...] (1 - 1-dose 75+ series) 2027 Insurance [employer] [id number] HMO
[2025-01-25 07:33] LABS: Hematocrit 38.5 % (36-47); Hemoglobin 11.50 g/dL (11.27-16.99); Mean Corpuscular HGB Conc 29.9 g/dL (30-55); Mean Corpuscular Hemoglobin 26.7 pg (27-33); Mean Corpuscular Volume 89.5 fl (85-98); Nucleated Red Blood Cells % 0 %; Platelet Count 187 10^3/cmm (157-399); Red Blood Count 4.30 10^6/uL (3.85-5.65); White Blood Count 13.30 10^3/uL (3.29-11.43)
--- NOTE | 2025-01-25 07:36 | W.ED.GENADLT ---
HPI - General Adult General: Chief complaint: Altered Mental Status Stated complaint: sent from GI Time Seen by Provider: 01/25/25 07:17 Source: patient Mode of arrival: ambulatory Limitations: no limitations History of Present Illness: 74-year-old female history of a stroke in the past she was in the GI lab for a colonoscopy when they checked her oxygen was 85% on room air and her brought her to the ER. Patient here is answering all my questions appropriately she has no complaints at this time states she does feel little sleepy. She does not wear oxygen at home. Denies any cough or fever. States she has right sided deficits from old stroke but no new stroke symptoms Associated symptoms: Deny chest pain, dyspnea, headache(s), nausea, rash or vomiting Related Data Home Medications ?Medication ?Instructions ?Recorded ?Confirmed vitamins A,C,[id number] 4,296 1 cap PO DAILY 07/08/23 12/31/24 mcg-226 mg-90 mg capsule (PreserVision AREDS) acetaminophen 325 mg tablet 650 mg PO QID PRN Fever Or Pain 11/20/24 12/31/24 (Tylenol) atorvastatin 40 mg tablet 40 mg PO DAILY 11/20/24 12/31/24 baclofen 5 mg tablet 5 mg PO TID PRN JOINT PAIN 11/20/24 12/31/24 carvedilol 6.25 mg tablet 6.25 mg PO BID 11/20/24 12/31/24 escitalopram oxalate 5 mg tablet 5 mg PO DAILY anxiety 11/20/24 12/31/24 loperamide 2 mg tablet (Imodium 2 mg PO DAILY 11/20/24 12/31/24 A-D) omeprazole 20 mg capsule,delayed 20 mg PO DAILY 11/20/24 12/31/24 release peg 400-propylene glycol 0.4 %-0.3 1 drp ophthalmic (eye) TID 11/20/24 12/31/24 % eye drops (Systane (propylene glycol)) potassium chloride 20 mEq 20 meq PO DAILY take with Lasix 11/20/24 12/31/24 tablet,extended release(part/cryst) bisacodyl 10 mg rectal suppository 10 mg [place] DAILY PRN Constipation 12/07/24 12/31/24 (Dulcolax (bisacodyl)) oxycodone-acetaminophen 5 mg-325 1 tab PO Q8H PRN Pain 12/31/24 01/19/25 mg tablet tirzepatide 5 mg/0.5 mL 5 mg SUBCUT Q7D 12/31/24 01/25/25 subcutaneous pen injector (Ambreen) Previous Rx's ?Medication ?Instructions ?Recorded ferrous sulfate 325 mg (65 mg 325 mg PO EVERY OTHER DAY #90 tabs 11/22/24 iron) tablet furosemide 40 mg tablet (Lasix) 40 mg PO DAILY PRN Edema #1 tab 11/22/24 tramadol 25 mg tablet 25 mg PO QID PRN pain #15 tabs 12/02/24 magnesium hydroxide 400 mg/5 mL 30 ml PO DAILY PRN Constipation 01/02/25 oral suspension (Milk of Magnesia) #15 mL polyethylene glycol 3350 17 gram 17 g PO BID PRN Constipation #14 ea 01/02/25 oral powder packet sennosides 8.6 mg-docusate sodium 1 tab PO BID PRN Constipation #14 01/02/25 50 mg tablet (Stool tabs Softener-Laxative) Allergies Allergy/AdvReac Type Severity Reaction Status Date / Time No Known Allergies Allergy Verified 01/25/25 06:18 Review of Systems Const: Denies: fever(s), chills, body aches or change in appetite Eyes: Denies: blurry vision or eye discomfort ENMT: Denies: throat pain or dental pain Card: Denies: chest pain Resp: Denies: dyspnea GI: Denies: abdominal pain, nausea, vomiting or diarrhea Musc: Denies: neck pain or back pain Skin/Breast: Denies: rash Neuro: Denies: headache(s) [facility] ED PFSH: Medical History Family history of lupus anticoagulant disorder Family history of factor V Leiden mutation GERD (gastroesophageal reflux disease) -on PPI Overactive bladder Anemia HLD (hyperlipidemia) -lipid panel ordered -on statin HTN (hypertension) -VSS; continue to monitor -on BB Multiple sclerosis Dementia Hemiplegia and hemiparesis following cerebral infarction affecting right dominant side CVA (cerebral vascular accident) -prior CVA with residual right sided weakness, decreased sensation -noted CT head reported as 5.8 cm subacute non-hemorrhagic infarct in left parietal lobe, stable left hemispheric encephalomalacia. MRI head reported as acute/subacute infarct involving L temporal lobe, numerous flow voids throughout the L cerebral hemisphere consistent with AVM. -Echo: EF=68%, G1DD, no RWMA, trace AR -carotid ultrasound with no significant stenosis -Telemetry monitoring -VSS -Fall/aspiration precautions -PT/ST/OT evaluations appreciated -Continue aspirin, statin added -Troponins noted with no significant delta -noted TSH, A1c, lipid panel Family History Mother Breast cancer Denies family history of Colon cancer Ovarian cancer Prostate cancer Diabetes Heart disease Hypercholesteremia Hypertension Uterine cancer Thyroid disease Stroke Social History Smoking and tobacco/nicotine status: never used tobacco/nicotine Physical Exam Const: COMMON NORMALS: no acute distress, patient oriented x3 and healthy appearing HENMT: COMMON NORMALS: normocephalic and atraumatic HEAD & SCALP: normocephalic and atraumatic Eye: COMMON NORMALS: Equal, round and reactive pupils present and EOMs intact bilaterally PUPIL: Yes Equal, round and reactive pupils present Neck/C-Spine: COMMON NORMALS: full ROM and supple Chest: COMMONS NORMALS: normal inspection of the chest and normal palpation of entire chest wall Resp: COMMON NORMALS: normal respiratory effort, No retractions, No use of accessory muscles and clear to auscultation bilaterally AUSCULTATION: clear to auscultation bilaterally Cardio: COMMON NORMALS: regular rate, regular rhythm and No murmurs present (Cardio) RATE: regular rate RHYTHM: regular rhythm GI: COMMON NORMALS: Normal to inspection, nondistended, normoactive bowel sounds present, Soft to palpation, non-tender and no masses PALPATION: Yes Soft to palpation Extremity: COMMON NORMALS: normal to inspection and full ROM Neuro: COMMON NORMALS: patient oriented x3, moves all extremities and no focal motor deficits Psych: COMMON NORMALS: mental status grossly normal, Normal thought process present and cooperative THOUGHT PROCESS: Normal thought process present Skin: COMMON NORMALS: no rashes or lesions noted and no wounds GENERAL SKIN EXAM: no rashes or lesions noted Course Vital Signs: Vital signs: Vital Signs Temperature 98.6 F 01/25/25 07:25 Pulse Rate 86 01/25/25 08:52 Respiratory Rate 16 01/25/25 08:52 Blood Pressure 142/62 01/25/25 08:52 Pulse Oximetry 98 01/25/25 08:52 Oxygen Delivery Me thod Nasal Cannula 01/25/25 08:52 Oxygen Flow Rate 2 01/25/25 08:52 MDM - General Adult Medical Decision Making Patient presents here with shortness of breath was brought over from GI Lab due to hypoxia. Patient does not wear oxygen at home appears to have CHF exacerbation does have an elevated BNP has pulm edema on her x-ray did give Lasix spoke to hospitalist will admit at this time. Medical Records I reviewed the patient's medical records. Lab Data I reviewed the patient's lab results. 01/25/25 07:28 01/25/25 07:28 Radiology Impressions Chest X-Ray 01/25/25 07:17 Impression: Moderate pulmonary vascular congestion. Head CT 01/25/25 07:17 IMPRESSION: 1. No acute intracranial hemorrhage or edema. 2. Numerous calcifications in the LEFT temporoparietal lobes consistent with a treated AVM. 3. Volume loss in the LEFT temporal lobe and parietal lobe with ex vacuo dilatation of the adjacent lateral ventricle. No acute interval change. Laboratory Results WBC 13.30 10^3/uL (3.29-11.43) H 01/25/25 07:28 RBC 4.30 10^6/uL (3.85-5.65) 01/25/25 07:28 Hgb 11.50 g/dL (11.27-16.99) 01/25/25 07:28 Hct 38.5 % (36-47) 01/25/25 07:28 MCV 89.5 fl (85-98) 01/25/25 07:28 MCH 26.7 pg (27-33) L 01/25/25 07:28 MCHC 29.9 g/dL (30-55) L 01/25/25 07:28 RDW 18.5 % (12.1-15.1) H 01/25/25 07:28 Plt Count 187 10^3/cmm (157-399) 01/25/25 07:28 MPV 10.2 fL (7.4-10.4) 01/25/25 07:28 Neut % (Auto) 86.2 % 01/25/25 07:28 Lymph % (Auto) 4.7 % 01/25/25 07:28 [place]a % (Auto) 8.1 % 01/25/25 07:28 Eos % (Auto) 0.3 % 01/25/25 07:28 Baso % (Auto) 0.4 % 01/25/25 07:28 Neut # (Auto) 11.47 10^3/uL (1.8-7.7) H 01/25/25 07:28 Lymph # (Auto) 0.6 10^3/uL (0.8-4.8) L 01/25/25 07:28 [place]a # (Auto) 1.1 10^3/uL (0.2-0.9) H 01/25/25 07:28 Eos # (Auto) 0.0 10^3/uL (0.0-0.8) 01/25/25 07: Baso # (Auto) 0.1 10^3/uL (0.0-0.1) 01/25/25 07: Nucleated RBC % (auto) 0 % 01/25/25 07: Nucleated RBCs # 0.0 /100WBC 01/25/25 07:28 Sodium 144 mmol/L (136-145) 01/25/25 07:28 Potassium 4.3 mmol/L (3.5-5.1) 01/25/25 07: Chloride 105 mmol/L (98-107) 01/25/25 07:28 Carbon Dioxide 26 mmol/L (22-29) 01/25/25 07:28 Anion Gap 17.3 (5-19) 01/25/25 07:28 BUN 26 mg/dL (8-23) H 01/25/25 07:28 Creatinine 1.8 mg/dL (0.5-0.9) H 01/25/25 07:28 GFR Calculation Not Reportable 01/25/25 07:28 Glucose 168 mg/dL (65-115) H 01/25/25 07:28 POC Glucose 146 mg/dL (70-110) H 01/25/25 07:21 Calculated Osmolality 307 mOsm/kg (285-295) H 01/25/25 07:28 Calcium 9.0 mg/dL (8.5-10.5) 01/25/25 07:28 Total Bilirubin 1.4 mg/dL (0.15-1.2) H 01/25/25 07:28 AST 34 U/L (0-32) H 01/25/25 07:28 ALT 27 U/L (0-33) 01/25/25 07:28 Alkaline Phosphatase 145 U/L (35-105) H 01/25/25 07:28 NT-Pro-B Natriuret Pep 3478 pg/mL (0-125) H 01/25/25 07:28 Total Protein 7.1 g/dL (6.6-8.7) 01/25/25 07:28 Albumin 3.5 g/dL (3.5-5.2) 01/25/25 07:28 Globulin 3.6 g/dL (1.3-4.6) 01/25/25 07:28 Amorphous Sediment Not Reportable 01/25/25 08:55 All radiology interpretation(s) finalized by discharge EKG Data EKG 1: I personally reviewed and interpreted this EKG as follows: EKG interpretation date: 01/25/25 EKG interpretation time: 07:51 Interpretation: nsr hr [address] elevation qrs 91 qtc 417 Computer generated interpretation: Chest X-Ray 01/25/25 07:17 Impression: Moderate pulmonary vascular congestion. Head CT 01/25/25 07:17 IMPRESSION: 1. No acute intracranial hemorrhage or edema. 2. Numerous calcifications in the LEFT temporoparietal lobes consistent with a treated AVM. 3. Volume loss in the LEFT temporal lobe and parietal lobe with ex vacuo dilatation of the adjacent lateral ventricle. No acute interval change. Discharge Plan Discharge Patient Disposition: Admitted As Inpatient Clinical Impression: Acute exacerbation of CHF (congestive heart failure), Acute respiratory failure with hypoxia Condition: Stable Coding Level of Care Code ED [employer] Operator for Linn Bain
[2025-01-25 08:02] LABS: Alanine Aminotransferase 27 U/L (0-33); Albumin Level 3.5 g/dL (3.5-5.2); Alkaline Phosphatase 145 U/L (35-105); Anion Gap 17.3 (5-19); Aspartate Amino Transferase 34 U/L (0-32); Blood Urea Nitrogen 26 mg/dL (8-23); Calcium 9.0 mg/dL (8.5-10.5); Carbon Dioxide 26 mmol/L (22-29); Chloride 105 mmol/L (98-107); Globulin 3.6 g/dL (1.3-4.6); Glucose 168 mg/dL (65-115); NT Pro B Type Natriuretic Pept 3478 pg/mL (0-125); Osmolality Calculated 307 mOsm/kg (285-295); Potassium 4.3 mmol/L (3.5-5.1); Sodium 144 mmol/L (136-145); Total Protein 7.1 g/dL (6.6-8.7)
[2025-01-25] MEDS: FUROsemide 10 mg/mL SDV 10mL 60 MG IVP (08:53)
[2025-01-25 09:14] LABS: Glucose Urine UA Negative (Normal); Nitrate Urine Negative (Negative); Specific Gravity, Urine 1.020 (1.005-1.030)
[2025-01-25 09:19] LABS: Add Urine Microscopic? YES
[2025-01-25 10:20] LABS: UA Slide Review UA Slide Review Perf
--- NOTE | 2025-01-25 11:47 | PC.PHAR ---
2nd call to [facility] to fax [facility] med list 11:47am 01/25/25
--- NOTE | 2025-01-25 12:43 | PC.NURSE ---
yang catheter placed in the ED prior to arrival to the floor.
--- NOTE | 2025-01-25 14:57 | USCV_ITS ---
Lee Ann Leahy Age: 74 Gender: F : 1950 Exam Date: 01/25/2025 19:51 Ordering Phys: Willie Ladd MD Technologist: LOR [place] [facility] [place]: [place]ut chf BP: 127 / 69 HR: 76 Rhythm: Sinus Technical Quality: Adequate MEASUREMENTS (Male / Female) Normal Values 2D ECHO LV Diastolic Diameter PLAX 3.4 cm 4.2 - 5.9 / 3.9 - 5.3 cm IVS Diastolic Thickness 1.0 cm 0.6 - 1.0 / 0.6 - 0.9 cm IVS Systolic Thickness 1.2 cm LVPW Diastolic Thickness 1.1 cm 0.6 - 1.0 / 0.6 - 0.9 cm LVPW Systolic Thickness 1.4 cm LVOT Diameter 1.7 cm LV Ejection Fraction 2D Teich 54.9 % LV Ejection Fraction MOD 4C 62.4 % LV Ejection Fraction MOD 2C 69.1 % LV Ejection Fraction 2C AL 68.8 % LA Diameter 2.8 cm Aorta at Sinotubular Diameter 2.2 cm IVC Diameter 1.5 cm M-MODE LA Ao Ratio MM 1.4 AV Cusp Separation MM 1.6 cm DOPPLER AV Peak Velocity 136.0 cm/s LVOT Peak Velocity 118.0 cm/s AV Area Cont Eq vti 2.4 cm squared AV Area Cont Eq pk 1.9 cm squared MV Peak Velocity 102.0 cm/s MV Area PHT 2.9 cm squared Mitral E to A Ratio 1.0 TV Peak E Velocity 46.0 cm/s PV Peak Velocity 89.0 cm/s FINDINGS Left Ventricle Normal left ventricular size, systolic function and wall thickness, with no regional wall motion abnormalities. Left ventricular ejection fraction is estimated at 60 %. Grade II/IV diastolic dysfunction, moderately elevated filling pressures. Right Ventricle The right ventricle is normal in size and function. Right Atrium The right atrium is normal in size. Left Atrium The left atrium is normal in size. Mitral Valve Mild mitral annular calcification. Structurally normal mitral valve. No mitral valve stenosis. Trace mitral valve regurgitation. Aortic Valve Moderate aortic valve calcification. No aortic valve stenosis. Trace aortic valve regurgitation. Tricuspid Valve Structurally normal tricuspid valve without significant stenosis or regurgitation. Pulmonary artery systolic pressure is normal. Pulmonic Valve Structurally normal pulmonic valve without significant stenosis. There is no pulmonic regurgitation. Pericardium Normal pericardium without effusion. Aorta Normal ascending aorta dimension. IVC The inferior vena cava appears normal. CONCLUSIONS Normal left ventricular size, systolic function and wall thickness, with no regional wall motion abnormalities. Left ventricular ejection fraction is estimated at 60 %. Grade II/IV diastolic dysfunction, moderately elevated filling pressures. No significant valve abnormalities. There is no pericardial effusion. Right atrial pressure is around 5 mm of mercury. Ulises Dunbar MD (Electronically Signed) Final Date: 26 January 2025 09:36 S
--- NOTE | 2025-01-25 15:27 | PM.HP ---
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 Reports feeling somewhat sleepy but otherwise without specific complaints. Does not use oxygen at home. Chronic right-sided deficits from prior stroke. In the emergency department, started on nasal cannula oxygen (initially 2 L, later weaned to ~1 L) with saturation improving to 95?97%. Chest X-ray showed moderate pulmonary vascular congestion; N-terminal pro?B-type natriuretic peptide (NT-proBNP) 3,478. Family notes leg swelling, worse in the paralyzed right leg; left leg edema occasional and mild. Denies chest pain. Dyspnea history unclear to patient; family uncertain. No cough or phlegm, no sneezing, sore throat, fever, or chills. Had vomiting last night from colonoscopy prep; family reports multiple emergency visits in the last two months and current urinary tract infection. Lives in a halfway. Increased water intake recently; drank water in ED due to feeling dry after vomiting. Young catheter placed today in ED; urine output reported at 1,800 mL after diuretic. Review of ED data provided: blood pressure 138/93, pulse 86, respiratory rate 18, temperature 98.6?F, oxygen saturation 95% on nasal cannula. White blood cell count 13.3, hemoglobin 11.5, platelets 187. Blood urea nitrogen approximately 26 [corrected from ?B126?], creatinine 1.8 (baseline ~1.1?1.3), total bilirubin 1.4 with prior transient elevations, aspartate aminotransferase (AST) 34, alanine aminotransferase (ALT) normal, alkaline phosphatase 145, albumin 3.5 (low-normal), globulin normal. Urinalysis: >100 white blood cells, 4+ bacteria, 10?15 fine granular casts, numerous hyaline casts, 3+ leukocyte esterase, nitrite negative. Electrocardiogram: sinus rhythm (official read pending). Head computed tomography: no acute intracranial hemorrhage or edema; numerous calcifications in left temporal-parietal lobe consistent with treated arteriovenous malformation (AVM); volume loss in left temporal and parietal lobes with ex vacuo dilation of adjacent lateral ventricle; no acute interval change. Code status discussed with family; patient would want full resuscitation (CPR/intubation acceptable). Review of Systems Const: Denies: fever(s), chills, body aches or malaise ENMT: Denies: throat pain Card: Reports: edema (R>L); Denies: chest pain, pre-syncope or dyspnea on exertion Resp: Denies: dyspnea, productive cough, change in phlegm color or hemoptysis GI: Denies: abdominal pain, nausea, vomiting, diarrhea, constipation, hematochezia or melena : Denies: flank pain, urinary frequency or hematuria Musc: Reports: extremity swelling; Denies: back pain, joint swelling or joint redness Skin/Breast: Denies: rash or new lesions Neuro: Denies: headache(s) or confusion Medications/Allergies Home Medications ?Medication ?Instructions ?Recorded ?Confirmed ?Last Taken ?Type vitamins A,C,V-pctc-bjnawq 4,296 1 cap PO DAILY 07/08/23 01/25/25 01/24/25 History mcg-226 mg-90 mg capsule (PreserVision AREDS) acetaminophen 325 mg tablet 650 mg PO QID PRN Fever Or Pain 11/20/24 01/25/25 01/16/25 History (Tylenol) atorvastatin 40 mg tablet 40 mg PO DAILY 11/20/24 01/25/25 01/24/25 06:00 History baclofen 5 mg tablet 5 mg PO TID PRN JOINT PAIN 11/20/24 01/25/25 01/18/25 History carvedilol 6.25 mg tablet 6.25 mg PO BID 11/20/24 01/25/25 01/24/25 18:00 History escitalopram oxalate 5 mg tablet 5 mg PO DAILY anxiety 11/20/24 01/25/25 01/24/25 06:00 History loperamide 2 mg tablet (Imodium 2 mg PO DAILY PRN Diarrhea 11/20/24 01/25/25 12/30/24 07:51 History A-D) omeprazole 20 mg capsule,delayed 20 mg PO DAILY 11/20/24 01/25/25 01/24/25 06:00 History release peg 400-propylene glycol 0.4 %-0.3 1 drp ophthalmic (eye) TID 11/20/24 01/25/25 01/24/25 History % eye drops (Systane (propylene glycol)) potassium chloride 20 mEq 20 meq PO DAILY take with Lasix 11/20/24 01/25/25 01/24/25 06:00 History tablet,extended release(part/cryst) ferrous sulfate 325 mg (65 mg 325 mg PO EVERY OTHER DAY #90 tabs 11/22/24 01/25/25 01/24/25 06:00 Rx iron) tablet furosemide 40 mg tablet (Lasix) 40 mg PO DAILY PRN Edema #1 tab 11/22/24 01/25/25 11/20/24 08:50 Rx tramadol 25 mg tablet 25 mg PO QID PRN pain #15 tabs 12/02/24 01/25/25 12/17/24 20:00 Rx bisacodyl 10 mg rectal suppository 10 mg NV DAILY PRN Constipation 12/07/24 01/25/25 12/09/24 11:44 History (Dulcolax (bisacodyl)) oxycodone-acetaminophen 5 mg-325 1 tab PO Q8H PRN Pain 12/31/24 01/25/25 01/04/25 06:00 History mg tablet tirzepatide 5 mg/0.5 mL 5 mg SUBCUT Q7D 12/31/24 01/25/25 01/18/25 History subcutaneous pen injector (Mounjaro) magnesium hydroxide 400 mg/5 mL 30 ml PO DAILY PRN Constipation 01/02/25 01/25/25 Unknown Rx oral suspension (Milk of Magnesia) #15 mL polyethylene glycol 3350 17 gram 17 g PO BID PRN Constipation #14 ea 01/02/25 01/25/25 01/19/25 Rx oral powder packet sennosides 8.6 mg-docusate sodium 1 tab PO BID PRN Constipation #14 01/02/25 01/25/25 Unknown Rx 50 mg tablet (Stool tabs Softener-Laxative) cetirizine 10 mg tablet 10 mg PO DAILY 01/25/25 01/25/25 01/24/25 History docusate sodium 100 mg capsule 100 mg PO BID PRN Constipation 01/25/25 01/25/25 Unknown History Allergies Allergy/AdvReac Type Severity Reaction Status Date / Time No Known Allergies Allergy Verified 01/25/25 06:18 PFSH Acute PFSH: Medical History Family history of lupus anticoagulant disorder Family history of factor V Leiden mutation GERD (gastroesophageal reflux disease) -on PPI Overactive bladder Anemia HLD (hyperlipidemia) -lipid panel ordered -on statin HTN (hypertension) -VSS; continue to monitor -on BB Multiple sclerosis Dementia Hemiplegia and hemiparesis following cerebral infarction affecting right dominant side CVA (cerebral vascular accident) -prior CVA with residual right sided weakness, decreased sensation -noted CT head reported as 5.8 cm subacute non-hemorrhagic infarct in left parietal lobe, stable left hemispheric encephalomalacia. MRI head reported as acute/subacute infarct involving L temporal lobe, numerous flow voids throughout the L cerebral hemisphere consistent with AVM. -Echo: EF=68%, G1DD, no RWMA, trace AR -carotid ultrasound with no significant stenosis -Telemetry monitoring -VSS -Fall/aspiration precautions -PT/ST/OT evaluations appreciated -Continue aspirin, statin added -Troponins noted with no significant delta -noted TSH, A1c, lipid panel Family History Mother Breast cancer Denies family history of Colon cancer Ovarian cancer Prostate cancer Diabetes Heart disease Hypercholesteremia Hypertension Uterine cancer Thyroid disease Stroke Social History Smoking and tobacco/nicotine status: never used tobacco/nicotine Vitals/I&O/Wt Last Vital Signs Temp 98.6 F 01/25/25 07:25 Pulse 86 01/25/25 11:33 Resp 18 01/25/25 10:31 BP 138/93 01/25/25 11:33 Pulse Ox 95 01/25/25 11:33 O2 Del Method Nasal Cannula 01/25/25 12:44 O2 Flow Rate 2 01/25/25 08:52 Weight last 48 hrs Weight 69.445 kg Physical Exam Const: COMMON NORMALS: patient oriented x3 and alert GENERAL APPEARANCE: cooperative ORIENTATION/CONSCIOUSNESS: Yes awake HENMT: COMMON NORMALS: oropharynx normal Neck/C-Spine: COMMON NORMALS: no JVD Resp: COMMON NORMALS: normal respiratory effort and clear to auscultation bilaterally AUSCULTATION: clear to auscultation bilaterally Cardio: COMMON NORMALS: no JVD, regular rhythm, S1 normal heart sound present, S2 normal heart sound present and No murmurs present (Cardio) RHYTHM: regular rhythm HEART SOUNDS: S1 normal heart sound present and S2 normal heart sound present GI: COMMON NORMALS: Normal to inspection, nondistended, normoactive bowel sounds present, Soft to palpation and non-tender PALPATION: Yes Soft to palpation Extremity: COMMON NORMALS: no joint enlargement GENERAL: Yes edema (R>L) Neuro: COMMON NORMALS: patient oriented x3 and moves all extremities SENSORIUM/ORIENTATION: Yes alert OTHER: Chronic R side deficits after old CVA. Contractures. Skin: COMMON NORMALS: no rashes or lesions noted GENERAL SKIN EXAM: no rashes or lesions noted Urinary Catheter Management: Young: Cath Placed During This Visit: yes Urinary Catheter Date of Insertion: 01/25/25 Data 01/25/25 07:28 01/25/25 07:28 A&P Assessment and plan 1. Acute exacerbation of CHF (congestive heart failure): Acute hypoxemic respiratory issue : Hypoxia identified pre-procedure (SpO2 85% on room air), improved on nasal cannula; no cough or sputum; possible contribution from vomiting/aspiration discussed. - Continue nasal cannula oxygen; wean as tolerated. - Monitor oxygenation and clinical status. Pulmonary vascular congestion/elevated NT-proBNP (concern for acute congestive heart failure) : Acute CHF, type unknown. Chest X-ray with moderate pulmonary vascular congestion; NT-proBNP 3,478; LE edema. New hypoxia, diuresis initiated; etiology to be further evaluated. Reviewed vitals, CBC, CMP, NT proBNP, EKG on my interpretation NSR, pending official read, chest x-ray, past echocardiogram, ED provider note, discussed with ED provider. - Continue diuretics to relieve fluid congestion (Lasix already given in ED). Continue IV diuretics. Monitor for risk of electrolyte deficiency, renal dysfunction. Reassess chemistry, volume status. Young was placed in the ED, keep for now for accurate I&O - Order echocardiogram (ultrasound of the heart) to assess function and valves. - Obtain additional cardiac studies as indicated and serial troponins to assess for ischemia. - Monitor response to diuretics and adjust based on clinical status. 2. UTI (urinary tract infection): Urinary tract infection (history of ESBL E. coli) : Urinalysis consistent with infection, suspected complicated UTI - on micro review recent ESBL E. coli with limited oral options. - Start meropenem due to recent ESBL-resistant infection. Monitor for risk of seizure. Seizure precautions. Plan: Acute kidney injury on chronic kidney disease : Creatinine 1.8 (baseline ~1.1?1.3); plan to monitor during diuresis. Hold mounjaro. - Monitor kidney function during ongoing diuretic therapy. Leukocytosis : WBC 13.3 in the setting of suspected UTI and recent vomiting. Anemia : Hemoglobin 11.5. History of cerebrovascular accident with residual deficits : Chronic right-sided hemiplegia/hemiparesis; head CT without acute changes. Hypertension : ED BP 138/93; hydralazine 10 mg IV push given in ED. continue carvedilol Hyperlipidemia : On atorvastatin at home. Multiple sclerosis : Chronic condition Dementia : Chronic condition; resides in halfway with sisters as guardians. Follow-up : Anticipated need for outpatient care after stabilization. - Consider cardiology follow-up depending on echocardiogram and study results. PDMP PDMP Reviewed: Not Reviewed Attestations Medical Necessity Statement*: Admission of over 2 midnights is anticipated for assessment and management of acute CHF, with MENG on CKD, complicated UTI. and High MDM includes amount and/or complexity of data reviewed/ordered [ previous or external records, resulted lab(s)/test(s), ordered lab(s)/test(s), independent historian, independent test interpretation and other healthcare professional discussion] and described risk of complication, morbidity or mortality of management as documented Diagnoses Acute exacerbation of CHF (congestive heart failure) I50.9 UTI (urinary tract infection) N39.0
--- NOTE | 2025-01-25 15:28 | USR_ITS ---
PROCEDURE INFORMATION: Exam: US Duplex Right Lower Extremity Veins, Limited Exam date and time: 01/25/2025 4:25 PM Age: 74 years old Clinical indication: Edema, localized; Lower extremity, right; Additional info: Edema, assess for dvt TECHNIQUE: Imaging protocol: Real-time duplex ultrasound of the right extremity with 2-D foster scale, color Doppler flow and spectral waveform analysis including responses to compression and other maneuvers (when performed) with image documentation. Limited exam was focused on the right lower extremity veins. COMPARISON: CT hip RT wo con* [id number] 12/08/2019 8:46 PM FINDINGS: Right deep veins: Unremarkable. The common femoral, femoral, proximal profunda femoral and posterior tibial veins are patent without thrombus. Normal Doppler waveforms. Normal compressibility and/or augmentation response. Superficial veins: Greater saphenous vein is patent, compressible, shows augmentation. Soft tissues: Unremarkable. US/[place] [id number] IMPRESSION: No evidence of deep vein thrombosis.
[2025-01-25] MEDS: meropenem 1,000 mg SDV 1000 MG IVP ×2 (16:12→23:29)
[2025-01-25 16:42] LABS: Magnesium 2.4 mg/dL (1.7-2.3); Thyroid Stimulating Hormone 1.28 uIU/mL (0.27-4.20)
[2025-01-25 16:44] LABS: Troponin(5th) Baseline 25 ng/L (0-10)
--- NOTE | 2025-01-25 16:57 | ECG_ITS ---
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 Measurements Intervals [place] Rate: 87 P: 53 AR: 147 QRS: 29 QRSD: 91 T: 42 QT: 375 QTc: 451 Interpretive Statements SINUS RHYTHM INCOMPLETE RIGHT BUNDLE BRANCH BLOCK [90+ ms QRS DURATION, TERMINAL R IN V1/V2, 40+ ms S IN I/aVL/V4/V5/V6] Compared to ECG 01/25/2025 07:51:50 Incomplete right bundle-branch block now present Electronically Signed On 01-25-2025 23:53:15 CDT by Iram Power M.D. [email or web address]
[2025-01-25 18:47] LABS: Troponin 5 2HR 24.13 ng/L (0-10); Troponin 5 2HR Delta -0.87 ABS# (0-10)
--- NOTE | 2025-01-25 20:57 | ECG_ITS ---
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 Measurements Intervals [place] Rate: 86 P: 42 MT: 151 QRS: 22 QRSD: 97 T: 28 QT: 379 QTc: 453 Interpretive Statements SINUS RHYTHM POSSIBLE RIGHT VENTRICULAR CONDUCTION DELAY [RSR (QR) IN V1/V2] Compared to ECG 01/25/2025 16:57:23 Incomplete right bundle-branch block no longer present Electronically Signed On 01-25-2025 23:52:49 CDT by Iram Power M.D. [email or web address]
[2025-01-25 21:59] LABS: Troponin 5 6HR 23.18 ng/L (0-10)
[2025-01-25 22:03] LABS: Troponin 5 6HR Delta -1.82 ng/L (0-12)
[2025-01-26] VITALS (8 sets, daily range): BP systolic 129–140; BP diastolic 55–79; PULSE 75–94; RESP 14–26; TEMP 36.1–38; O2SAT 92–98; BMI 26.6
[2025-01-26 04:30] LABS: Hematocrit 34.4 % (36-47); Hemoglobin 10.40 g/dL (11.27-16.99); Mean Corpuscular HGB Conc 30.2 g/dL (30-55); Mean Corpuscular Hemoglobin 26.6 pg (27-33); Mean Corpuscular Volume 88.0 fl (85-98); Nucleated Red Blood Cells % 0 %; Platelet Count 180 10^3/cmm (157-399); Red Blood Count 3.91 10^6/uL (3.85-5.65); White Blood Count 12.90 10^3/uL (3.29-11.43)
[2025-01-26 04:58] LABS: Alanine Aminotransferase 17 U/L (0-33); Albumin Level 3.0 g/dL (3.5-5.2); Alkaline Phosphatase 158 U/L (35-105); Anion Gap 15.7 (5-19); Aspartate Amino Transferase 13 U/L (0-32); Blood Urea Nitrogen 29 mg/dL (8-23); Calcium 8.9 mg/dL (8.5-10.5); Carbon Dioxide 28 mmol/L (22-29); Chloride 100 mmol/L (98-107); Creatinine Clr Calc Pharmacy 29.7118; Globulin 3.7 g/dL (1.3-4.6); Glucose 115 mg/dL (65-115); Osmolality Calculated 297 mOsm/kg (285-295); Potassium 3.7 mmol/L (3.5-5.1); Sodium 140 mmol/L (136-145); Total Protein 6.7 g/dL (6.6-8.7)
[2025-01-26] MEDS: meropenem 1,000 mg SDV 1000 MG IVP ×2 (06:24→17:43)
--- NOTE | 2025-01-26 11:25 | P.PN_ITS ---
Subjective 2 Subjective: Breathing is improving. Oxygen requirement is coming down. Vitals/I&O/Wt Last Vital Signs Temp 96.9 F L 01/26/25 07:43 Pulse 94 01/26/25 07:43 Resp 24 H 01/26/25 07:43 BP 134/61 01/26/25 07:43 Pulse Ox 96 01/26/25 10:24 O2 Del Method Nasal Cannula 01/26/25 10:24 O2 Flow Rate 2 01/26/25 10:24 01/25/25 01/26/25 01/26/25 22:59 06:59 14:59 Intake Total 800 / 800 240 / 240 Output Total 600 / 2250 Balance 200 / -1450 240 / 240 Weight last 48 hrs Weight 68.209 kg Weight 69.445 kg Physical Exam 2 Narrative: Accompanied by her sisters. Const: COMMON NORMALS: patient oriented x3 and alert GENERAL APPEARANCE: c ooperative ORIENTATION/CONSCIOUSNESS: Yes awake HENMT: COMMON NORMALS: oropharynx normal Neck/C-Spine: COMMON NORMALS: no JVD Resp: COMMON NORMALS: normal respiratory effort and clear to auscultation bilaterally AUSCULTATION: clear to auscultation bilaterally Cardio: COMMON NORMALS: no JVD, regular rhythm, S1 normal heart sound present, S2 normal heart sound present and No murmurs present (Cardio) RHYTHM: regular rhythm HEART SOUNDS: S1 normal heart sound present and S2 normal heart sound present GI: COMMON NORMALS: Normal to inspection, nondistended, normoactive bowel sounds present, Soft to palpation and non-tender PALPATION: Yes Soft to palpation Extremity: COMMON NORMALS: no joint enlargement GENERAL: Yes edema (R>L) Neuro: COMMON NORMALS: patient oriented x3 and moves all extremities S ENSORIUM/ORIENTATION: Yes alert OTHER: Chronic R side deficits after old CVA with contractures. Skin: COMMON NORMALS: no rashes or lesions noted GENERAL SKIN EXAM: no rashes or lesions noted Urinary Catheter Management: Young: Cath Placed During This Visit: yes Reason for Continuing Indwelling Catheter: Other Urinary Catheter Date of Insertion: 01/25/25 Data 01/26/25 03:44 01/26/25 03:44 Micro: Microbiology 01/25/25 08:55 Urine Culture - Preliminary Urine,Clean Catch Gram Negative Rods A&P Assessment and plan 1. Acute exacerbation of CHF (congestive heart failure): Reviewed intake and output, noted and negative balance. Reviewed vitals, CBC, chemistry, troponin series, TSH. Reviewed limited echocardiogram, discussed with patient and family. Improving edema. Negative remaining oxygen requirement. Continue diuresis at this time monitor I&O, reassess renal function. Creatinine noted decreased down to 1.6 today. Will resume oral diuretic. Continue to wean down oxygen support with likely improving aspiration pneumonitis after vomiting. Noted abnormal D-dimer 2.89. Discussed with her family. Requested VQ scan as per discussion. Discussed with nursing, case assistant. Acute hypoxemic respiratory issue : Hypoxia identified pre-procedure (SpO2 85% on room air), improved on nasal cannula; no cough or sputum; possible contribution from vomiting/aspiration discussed. - Continue nasal cannula oxygen; wean as tolerated. - Monitor oxygenation and clinical status. Pulmonary vascular congestion/elevated NT-proBNP (concern for acute congestive heart failure) : Acute CHF, type unknown. Chest X-ray with moderate pulmonary vascular congestion; NT-proBNP 3,478; LE edema. New hypoxia, diuresis initiated; etiology to be further evaluated. Discussed with her and her family caution with fluid intake. - Continue diuretics to relieve fluid congestion (Lasix already given in ED). Continue IV diuretics. Monitor for risk of electrolyte deficiency, renal dysfunction. Reassess chemistry, volume status. Young was placed in the ED, keep for now for accurate I&O -Reviewed echocardiogram - Monitor response to diuretics and adjust based on clinical status. 2. UTI (urinary tract infection): Urinary tract infection (history of ESBL E. coli) : Reviewed urine negative rods. Follow-up. recent ESBL E. coli with limited oral options. - meropenem due to recent ESBL-resistant infection. Monitor for risk of seizure. Seizure precautions. Plan: Acute kidney injury on chronic kidney disease : Creatinine 1.8 (baseline ~1.1?1.3); plan to monitor during diuresis. Hold mounjaro. - Monitor kidney function during ongoing diuretic therapy. Leukocytosis : Improving, in the setting of suspected UTI and recent vomiting. Anemia : Hemoglobin 10.4. Reassess CBC. History of cerebrovascular accident with residual deficits : Chronic right-sided hemiplegia/hemiparesis; head CT without acute changes. Hypertension : ED BP 138/93; hydralazine 10 mg IV push given in ED. continue carvedilol Hyperlipidemia : On atorvastatin at home. Multiple sclerosis : Chronic condition Dementia : Chronic condition; resides in [facility] with sisters as guardians. Follow-up : Anticipated need for outpatient care after stabilization. - Consider cardiology follow-up depending on echocardiogram and study results. PDMP PDMP Reviewed: Not Reviewed Attestations 2 Medical Necessity Statement*: Admission required for assessment and management of acute CHF, with MENG on CKD, complicated UTI. Diagnoses Acute exacerbation of CHF (congestive heart failure) I50.9 UTI (urinary tract infection) N39.0
[2025-01-27] VITALS (8 sets, daily range): BP systolic 122–138; BP diastolic 57–76; PULSE 77–87; RESP 14–24; TEMP 35.9–37.5; O2SAT 90–97; BMI 27.0
[2025-01-27 04:40] LABS: Hematocrit 33.3 % (36-47); Hemoglobin 10.20 g/dL (11.27-16.99); Mean Corpuscular HGB Conc 30.6 g/dL (30-55); Mean Corpuscular Hemoglobin 27.3 pg (27-33); Mean Corpuscular Volume 89.0 fl (85-98); Nucleated Red Blood Cells % 0 %; Platelet Count 180 10^3/cmm (157-399); Red Blood Count 3.74 10^6/uL (3.85-5.65); White Blood Count 9.06 10^3/uL (3.29-11.43)
[2025-01-27] MEDS: meropenem 1,000 mg SDV 1000 MG IVP ×2 (05:51→17:42)
[2025-01-27 06:08] LABS: Alanine Aminotransferase 39 U/L (0-33); Albumin Level 3.0 g/dL (3.5-5.2); Alkaline Phosphatase 153 U/L (35-105); Anion Gap 13.0 (5-19); Aspartate Amino Transferase 46 U/L (0-32); Blood Urea Nitrogen 23 mg/dL (8-23); Calcium 8.8 mg/dL (8.5-10.5); Carbon Dioxide 30 mmol/L (22-29); Chloride 100 mmol/L (98-107); Globulin 3.6 g/dL (1.3-4.6); Glucose 122 mg/dL (65-115); Osmolality Calculated 293 mOsm/kg (285-295); Potassium 4.0 mmol/L (3.5-5.1); Sodium 139 mmol/L (136-145); Total Protein 6.6 g/dL (6.6-8.7)
[2025-01-27 06:11] LABS: Creatinine Clr Calc Pharmacy 33.9004
[2025-01-27] MEDS: ferrous sulfate EC 325 mg Tablet PO (09:17)
--- NOTE | 2025-01-27 09:40 | NM_ITS ---
WS: [id number] NUCLEAR MEDICINE VENTILATION/PERFUSION LUNG SCAN HISTORY: Assess for PE COMPARISON: 11/21/2024 prior VQ scan. Chest radiograph 01/25/2025 TECHNIQUE: Ventilation: 32.4 mCi of Technetium 99 DTPA aerosol inhaled. Perfusion: 5.2 mCi of technetium 99m MAA IV. Ventilatory portion is significantly limited. There is deposition of radionuclide centrally and also within the GI tract. No mismatch defects are identified. Perfusion appears near normal. NM/NM pul vent and perfus* [id number] IMPRESSION: Low probability of pulmonary embolism.
--- NOTE | 2025-01-27 13:01 | PC.SOCIAL ---
*IMM* Important message from medicare gave to patient, initialed, dated and placed in chart.
--- NOTE | 2025-01-27 19:23 | PM.PN ---
Subjective Subjective: She is overall feeling better. Breathing is improving. Denies cough. Vitals/I&O/Wt Last Vital Signs Temp 97.6 F 01/27/25 16:00 Pulse 87 01/27/25 16:00 Resp 22 H 01/27/25 16:00 BP 136/67 01/27/25 16:00 Pulse Ox 90 01/27/25 16:00 O2 Del Method Nasal Cannula 01/27/25 16:00 O2 Flow Rate 1 01/27/25 16:00 01/27/25 01/27/25 01/27/25 06:59 14:59 22:59 Intake Total 180 / 180 Output Total 300 / 700 750 / 750 Balance -300 / -220 180 / 180 -750 / -570 Weight last 48 hrs Weight 69.201 kg Weight 68.209 kg Physical Exam Const: COMMON NORMALS: patient oriented x3 and alert GENERAL APPEARANCE: cooperative ORIENTATION/CONSCIOUSNESS: Yes awake HENMT: COMMON NORMALS: oropharynx normal Neck/C-Spine: COMMON NORMALS: no JVD Resp: COMMON NORMALS: normal respiratory effort and clear to auscultation bilaterally AUSCULTATION: clear to auscultation bilaterally Cardio: COMMON NORMALS: no JVD, regular rhythm, S1 normal heart sound present, S2 normal heart sound present and No murmurs present (Cardio) RHYTHM: regular rhythm HEART SOUNDS: S1 normal heart sound present and S2 normal heart sound present GI: COMMON NORMALS: Normal to inspection, nondistended, normoactive bowel sounds present, Soft to palpation and non-tender PALPATION: Yes Soft to palpation Extremity: COMMON NORMALS: no joint enlargement GENERAL: Yes edema (R>L) Neuro: COMMON NORMALS: patient oriented x3 and moves all extremities SENSORIUM/ORIENTATION: Yes alert OTHER: Chronic R side deficits after old CVA with contractures. Skin: COMMON NORMALS: no rashes or lesions noted GENERAL SKIN EXAM: no rashes or lesions noted Urinary Catheter Management: Young: Cath Placed During This Visit: yes Reason for Continuing Indwelling Catheter: Accurate Measurement of Urinary Output in Critically Ill Patients Urinary Catheter Date of Insertion: 01/25/25 Data 01/27/25 03:57 01/27/25 05:36 Micro: Microbiology 01/25/25 08:55 Urine Culture - Final Urine,Clean Catch Escherichia coli esbl A&P Assessment and plan 1. UTI (urinary tract infection): Urinary tract infection (history of ESBL E. coli) : Reviewed urine culture, still pending this morning, but later returning as ESBL E. coli. Resistant to quinolones. Continue meropenem. Discussed with residential case manager, needing prior authorization to be able to return to care home with parenteral antibiotic. Authorization is requested. In the meantime continue antibiotic treatment here which she may end up finishing before authorization comes back. - meropenem due to recent ESBL-resistant infection. Monitor for risk of seizure. Seizure precautions. 2. Acute exacerbation of CHF (congestive heart failure): Reviewed intake and output, noted and negative balance. Oxygenation overall improved. Still requiring 1 L of oxygen, desaturating particularly while sleeping without it. Reviewed chemistry, BUN, creatinine with improvement. Reassess chemistry. Reassess volume status. Continue oral Lasix. Reviewed VQ scan, low probability of PE, discussed with her. Improvement in acute diastolic congestive heart failure as well as improving aspiration pneumonitis after vomiting. Hypoxia identified pre-procedure (SpO2 85% on room air), improved on nasal cannula; no cough or sputum; possible contribution from vomiting/aspiration discussed. - Continue nasal cannula oxygen; wean as tolerated. - Monitor oxygenation and clinical status. Plan: Acute kidney injury on chronic kidney disease : Creatinine 1.8 (baseline ~1.1?1.3); plan to monitor during diuresis. Hold mounjaro. - Monitor kidney function during ongoing diuretic therapy. Leukocytosis : Improving, in the setting of suspected UTI and recent vomiting. Anemia : Hemoglobin 10.2. Reassess CBC. History of cerebrovascular accident with residual deficits : Chronic right-sided hemiplegia/hemiparesis; head CT without acute changes. Hypertension : continue carvedilol Hyperlipidemia : On atorvastatin at home. Multiple sclerosis : Chronic condition Dementia : Chronic condition; resides in care home with sisters as guardians. Follow-up : Anticipated need for outpatient care after stabilization. PDMP PDMP Reviewed: Not Reviewed Attestations Medical Necessity Statement*: Admission required for assessment and management of complicated UTI, acute CHF, with MENG on CKD. Diagnoses UTI (urinary tract infection) N39.0 Acute exacerbation of CHF (congestive heart failure) I50.9
[2025-01-28] VITALS (9 sets, daily range): BP systolic 111–135; BP diastolic 56–71; PULSE 76–83; RESP 16–24; TEMP 36.1–37.6; O2SAT 93–95
[2025-01-28] MEDS: meropenem 1,000 mg SDV 1000 MG IVP ×2 (05:15→16:59)
[2025-01-28 07:37] LABS: Alanine Aminotransferase 53 U/L (0-33); Albumin Level 3.0 g/dL (3.5-5.2); Alkaline Phosphatase 161 U/L (35-105); Anion Gap 14.6 (5-19); Aspartate Amino Transferase 80 U/L (0-32); Blood Urea Nitrogen 22 mg/dL (8-23); Calcium 9.0 mg/dL (8.5-10.5); Carbon Dioxide 29 mmol/L (22-29); Chloride 96 mmol/L (98-107); Creatinine Clr Calc Pharmacy 36.4787; Globulin 3.9 g/dL (1.3-4.6); Glucose 125 mg/dL (65-115); Osmolality Calculated 287 mOsm/kg (285-295); Potassium 3.6 mmol/L (3.5-5.1); Sodium 136 mmol/L (136-145); Total Protein 6.9 g/dL (6.6-8.7)
--- NOTE | 2025-01-28 18:19 | P.PN_ITS ---
Subjective 2 Subjective: Patient was seen this morning, currently alert oriented x 2, follows all commands, denies any pain complaints, she has chronic right sided flexion contracture of her right hand, after her stroke, she tells me is chronic, Vitals/I&O/Wt Last Vital Signs Temp 96.9 F L 01/28/25 16:00 Pulse 76 01/28/25 16:00 Resp 20 H 01/28/25 16:00 BP 132/69 01/28/25 16:00 Pulse Ox 95 01/28/25 16:00 O2 Del Method Room Air 01/28/25 16:00 O2 Flow Rate 1 01/28/25 09:17 01/28/25 01/28/25 01/28/25 06:59 14:59 22:59 Intake Total 100 / 400 320 / 320 Output Total 300 / 1700 Balance -200 / -1300 320 / 320 Weight last 48 hrs Weight 69.082 kg Weight 69.201 kg Physical Exam 2 Const: COMMON NORMALS: no acute distress and patient oriented x3 Resp: COMMON NORMALS: normal respiratory effort, No retractions, No use of accessory muscles and clear to auscultation bilaterally AUSCULTATION: clear to auscultation bilaterally Cardio: COMMON NORMALS: regular rate, regular rhythm, S1 normal heart sound present and S2 normal heart sound present RATE: regular rate RHYTHM: r egular rhythm HEART SOUNDS: S1 normal heart sound present and S2 normal heart sound present GI: COMMON NORMALS: Normal to inspection, nondistended, normoactive bowel sounds present and non-tender Extremity: COMMON NORMALS: no pedal edema Neuro: COMMON NORMALS: patient oriented x3 Psych: COMMON NORMALS: mental status grossly normal Urinary Catheter Management: Young: Cath Placed During This Visit: yes Reason for Continuing Indwelling Catheter: Accurate Measurement of Urinary Output in Critically Ill Patients Urinary Catheter Date of Insertion: 01/25/25 Data 01/27/25 03:57 01/28/25 05:45 A&P Assessment and plan 1. UTI (urinary tract infection): - ESBL infection - Continue meropenem 2. Acute exacerbation of CHF (congestive heart failure): Plan: Acute kidney injury on chronic kidney disease : Creatinine 1.8 (baseline ~1.1?1.3); p monitor creatinine Leukocytosis : Continue IV antibiotics as above Anemia : Monitor History of cerebrovascular accident with residual deficits : Chronic right-sided hemiplegia/hemiparesis; head CT without acute changes. Hypertension : continue carvedilol Hyperlipidemia : On atorvastatin at home. Multiple sclerosis : Chronic condition Dementia : Chronic condition; resides in correction with sisters as guardians. Follow-up : Anticipated need for outpatient care after stabilization. PDMP PDMP Reviewed: Not Reviewed Attestations 2 Medical Necessity Statement*: Patient requires hospitalization for UTI, ESBL E. coli UTI Diagnoses UTI (urinary tract infection) N39.0 Acute exacerbation of CHF (congestive heart failure) I50.9
[2025-01-29] VITALS (9 sets, daily range): BP systolic 116–127; BP diastolic 54–75; PULSE 75–88; RESP 16–24; TEMP 36.1–36.8; O2SAT 92–96
[2025-01-29 04:19] LABS: Hematocrit 34.4 % (36-47); Hemoglobin 10.30 g/dL (11.27-16.99); Mean Corpuscular HGB Conc 29.9 g/dL (30-55); Mean Corpuscular Hemoglobin 26.5 pg (27-33); Mean Corpuscular Volume 88.4 fl (85-98); Nucleated Red Blood Cells % 0 %; Platelet Count 216 10^3/cmm (157-399); Red Blood Count 3.89 10^6/uL (3.85-5.65); White Blood Count 8.63 10^3/uL (3.29-11.43)
[2025-01-29 05:08] LABS: Alanine Aminotransferase 65 U/L (0-33); Albumin Level 3.3 g/dL (3.5-5.2); Alkaline Phosphatase 174 U/L (35-105); Anion Gap 14.6 (5-19); Aspartate Amino Transferase 103 U/L (0-32); Blood Urea Nitrogen 23 mg/dL (8-23); Calcium 9.1 mg/dL (8.5-10.5); Carbon Dioxide 32 mmol/L (22-29); Chloride 98 mmol/L (98-107); Globulin 3.6 g/dL (1.3-4.6); Glucose 116 mg/dL (65-115); Magnesium 2.4 mg/dL (1.7-2.3); Osmolality Calculated 297 mOsm/kg (285-295); Potassium 3.6 mmol/L (3.5-5.1); Sodium 141 mmol/L (136-145); Total Protein 6.9 g/dL (6.6-8.7)
[2025-01-29 05:10] LABS: Creatinine Clr Calc Pharmacy 39.2272
[2025-01-29] MEDS: meropenem 1,000 mg SDV 1000 MG IVP ×2 (05:13→17:05)
[2025-01-29] MEDS: ferrous sulfate EC 325 mg Tablet PO (08:11)
--- NOTE | 2025-01-29 08:39 | USR_ITS ---
PROCEDURE INFORMATION: Exam: US Abdomen, Limited; Right Upper Quadrant Exam date and time: 01/29/2025 3:08 PM Age: 74 years old Clinical indication: Screening exam; Other: Ruq, liver and gallbladder, ; additional info: Ruq, liver and gallbladder, ate breakfast. Notified to keep npo and will scan this afternoon. CR TECHNIQUE: Imaging protocol: Real time ultrasound of the abdomen with image documentation. Limited exam focused on the right upper quadrant. COMPARISON: CT abdomen pelvis wo con [id number] 11/20/2024 3:09 PM FINDINGS: Liver: Increased echogenicity suggesting steatosis. No hepatic mass. Gallbladder: Echogenic material at the dependent gallbladder without shadowing may be sludge or debris, tiny stones not excluded. Gallbladder wall is not thickened. Biliary ducts: Normal. No stones. No dilation. Pancreas: Visualized pancreas is unremarkable. Right kidney: Normal. No mass. No hydronephrosis. Small cyst. US/US abdomen limited [id number] IMPRESSION: Echogenic material in the dependent gallbladder, sludge or stones.
[2025-01-29 09:01] LABS: Lipase 60 U/L (13-60)
[2025-01-29 09:06] LABS: Procalcitonin 1.61 ng/mL (0-0.5)
--- NOTE | 2025-01-29 14:09 | P.PN_ITS ---
Subjective 2 Subjective: Patient was seen this morning, currently alert oriented x 2, follows all commands, denies any fevers, chills, no cough, she does report that intermittently she has been having right upper quadrant abdominal pain, nothing currently, no diarrhea, no constipation, no history of jaundice Vitals/I&O/Wt Last Vital Signs Temp 97.0 F L 01/29/25 12:00 Pulse 75 01/29/25 12:00 Resp 16 01/29/25 12:00 BP 119/69 01/29/25 12:00 Pulse Ox 96 01/29/25 12:00 O2 Del Method Nasal Cannula 01/29/25 12:00 O2 Flow Rate 1 01/29/25 12:00 01/28/25 01/29/25 01/29/25 22:59 06:59 14:59 Intake Total 120 / 440 120 / 120 Output Total 850 / 850 250 / 1100 500 / 500 Balance -730 / -410 -250 / -660 -380 / -380 Weight last 48 hrs Weight 67.993 kg Weight 69.082 kg Physical Exam 2 Const: COMMON NORMALS: no acute distress and patient oriented x3 Resp: COMMON NORMALS: normal respiratory effort, No retractions, No use of accessory muscles and clear to auscultation bilaterally AUSCULTATION: clear to auscultation bilaterally Cardio: COMMON NORMALS: regular rate, regular rhythm, S1 normal heart sound present and S2 normal heart sound present RATE: regular rate RHYTHM: r egular rhythm HEART SOUNDS: S1 normal heart sound present and S2 normal heart sound present GI: COMMON NORMALS: Normal to inspection, nondistended, normoactive bowel sounds present, Soft to palpation and non-tender PALPATION: Yes Soft to palpation Extremity: COMMON NORMALS: no pedal edema Neuro: COMMON NORMALS: patient oriented x3 Psych: COMMON NORMALS: mental status grossly normal Urinary Catheter Management: Young: Cath Placed During This Visit: yes Reason for Continuing Indwelling Catheter: Accurate Measurement of Urinary Output in Critically Ill Patients Urinary Catheter Date of Insertion: 01/25/25 Data 01/29/25 02:18 01/29/25 02:18 A&P Assessment and plan 1. UTI (urinary tract infection): - ESBL E. coli infection - Continue meropenem, will likely switch to Bactrim on discharge 2. Acute exacerbation of CHF (congestive heart failure): Plan: Acute kidney injury on chronic kidney disease : Creatinine 1.8 (baseline ~1.1?1.3); monitor creatinine Transaminitis, right upper quadrant ultrasound Leukocytosis : Continue IV antibiotics as above Anemia : Monitor History of cerebrovascular accident with residual deficits : Chronic right-sided hemiplegia/hemiparesis; head CT without acute changes. Hypertension : continue carvedilol Hyperlipidemia : On atorvastatin at home. Multiple sclerosis : Chronic condition Dementia : Chronic condition; [facility] with sisters as guardians. Follow-up : Anticipated need for outpatient care after stabilization. PDMP PDMP Reviewed: Not Reviewed Attestations 2 Medical Necessity Statement*: Patient requires hospitalization for ESBL E. coli requiring IV antibiotics, transaminitis regarding right upper quadrant abdominal ultrasound, monitoring Diagnoses UTI (urinary tract infection) N39.0 Acute exacerbation of CHF (congestive heart failure) I50.9
[2025-01-30 03:53] VITALS: BP 129/66; PULSE 75; RESP 22; TEMP 37; O2SAT 95
[2025-01-30] MEDS: meropenem 1,000 mg SDV 1000 MG IVP (05:10)
[2025-01-30 05:28] LABS: Hematocrit 36.2 % (36-47); Hemoglobin 10.90 g/dL (11.27-16.99); Mean Corpuscular HGB Conc 30.1 g/dL (30-55); Mean Corpuscular Hemoglobin 26.7 pg (27-33); Mean Corpuscular Volume 88.7 fl (85-98); Nucleated Red Blood Cells % 0 %; Platelet Count 254 10^3/cmm (157-399); Red Blood Count 4.08 10^6/uL (3.85-5.65); White Blood Count 9.81 10^3/uL (3.29-11.43)
[2025-01-30 05:52] LABS: Alanine Aminotransferase 50 U/L (0-33); Albumin Level 3.3 g/dL (3.5-5.2); Alkaline Phosphatase 145 U/L (35-105); Anion Gap 12.6 (5-19); Aspartate Amino Transferase 49 U/L (0-32); Blood Urea Nitrogen 24 mg/dL (8-23); Calcium 9.2 mg/dL (8.5-10.5); Carbon Dioxide 34 mmol/L (22-29); Chloride 96 mmol/L (98-107); Globulin 3.6 g/dL (1.3-4.6); Glucose 128 mg/dL (65-115); Magnesium 2.3 mg/dL (1.7-2.3); Osmolality Calculated 294 mOsm/kg (285-295); Potassium 3.6 mmol/L (3.5-5.1); Sodium 139 mmol/L (136-145); Total Protein 6.9 g/dL (6.6-8.7)
[2025-01-30 06:09] LABS: Creatinine Clr Calc Pharmacy 35.9970
[2025-01-30 07:30] VITALS: BP 123/57; PULSE 18; RESP 20; TEMP 36.6; O2SAT 95
--- NOTE | 2025-01-30 11:25 | P.DS_ITS ---
Discharge Providers Date of Admission: 01/25/25 11:35 Date of Discharge: January 30, 2025 Attending Provider at Admission: Willie Ladd Attending Provider at Discharge: Edwin Padilla MD Primary Care Provider: Diana Cosme Diagnoses at Discharge Discharge Diagnosis 1. UTI (urinary tract infection): 2. Acute exacerbation of CHF (congestive heart failure): Reason for Visit Reason for Visit: sent from GI Hospital Course Hospital Course This is a 74-year-old female with past medical history of lupus anticoagulant disorder, factor V Leiden, hypertension, hyperlipidemia, history of CVA, residual right-sided hemiplegia/hemiparesis, multiple sclerosis, dementia, ane kiki, CKD who presents to [facility] due to hypoxia Patient was admitted to [facility] for acute hypoxic respiratory failure, secondary to fluid overload requiring IV diuresis as inpatient, overall clinically improved, on room air on discharge Patient's hospitalization was complicated by ESBL E. coli UTI, requiring 4 days of IV meropenem, discussed with patient the risks and benefits of oral antibiotics, culture sensitivity to Bactrim, shared decision making, she voiced understanding, all question answered, agreed to proceed, discharge order for remaining days of p.o. Bactrim. Patient's hospitalization was complicated by transaminitis Abdominal ultrasound shows echogenic material the dependent gallbladder, sludge or stones, no gallbladder wall thickening Denies any right upper quadrant pain No hyperbilirubinemia Discussed for her to adhere to GI soft diet Monitor for right upper quadrant pain Monitor for fevers or nausea or vomiting or right upper quadrant pain, if so go to the emergency room Will have her follow-up with general surgery as outpatient for consideration of cholecystectomy Follow LFTs as outpatient AST 49, ALT 50, alk phos 145, bili 0.6 Physical Exam Const: COMMON NORMALS: no acute distress and patient oriented x3 Resp: COMMON NORMALS: normal respiratory effort, No retractions, No use of accessory muscles and clear to auscultation bilaterally AUSCULTATION: clear to auscultation bilaterally Cardio: COMMON NORMALS: regular rate, regular rhythm, S1 normal heart sound present and S2 normal heart sound present RATE: regular rate RHYTHM: regular rhythm HEART SOUNDS: S1 normal heart sound present and S2 normal heart sound present GI: COMMON NORMALS: Normal to inspection, nondistended, normoactive bowel sounds present and non-tender Extremity: COMMON NORMALS: no pedal edema Neuro: COMMON NORMALS: patient oriented x3 Psych: COMMON NORMALS: mental status grossly normal Urinary Catheter Management: Young: Cath Placed During This Visit: yes Reason for Continuing Indwelling Catheter: Accurate Measurement of Urinary Output in Critically Ill Patients Urinary Catheter Date of Insertion: 01/25/25 Discharge Data Studies Completed and Pending Completed Studies During Hospitalization Category Date Time Status CT head wo con* [id number] Stat Cat Scan 01/25/25 07:17 Completed XR chest 1V portable [id number] Stat Exams 01/25/25 07:17 Completed NM pul vent and perfus* [id number] Routine Nuc Med 01/27/25 09:40 [place] [id number] Routine Ultrasound 01/25/25 15:28 Completed CV. echo limited [id number] Routine Ultrasound 01/25/25 14:57 Completed US abdomen limited [id number] Routine Ultrasound 01/29/25 08:39 Completed Pending at discharge Category Date Time Status Complete Blood Count w/Auto AM LABS Lab 01/31/25 04:00 Ordered Comprehensive Metabolic Panel AM LABS Lab 01/31/25 04:00 Ordered Magnesium AM LABS Lab 01/31/25 04:00 Ordered Phosphorus AM LABS Lab 01/31/25 04:00 Ordered Radiology Impressions Chest X-Ray 01/25/25 07:17 Impression: Moderate pulmonary vascular congestion. Head CT 01/25/25 07:17 IMPRESSION: 1. No acute intracranial hemorrhage or edema. 2. Numerous calcifications in the LEFT temporoparietal lobes consistent with a treated AVM. 3. Volume loss in the LEFT temporal lobe and parietal lobe with ex vacuo dilatation of the adjacent lateral ventricle. No acute interval change. Venous Duplex 01/25/25 15:28 IMPRESSION: No evidence of deep vein thrombosis. Pulmonary Perfusion Imaging 01/27/25 09:40 IMPRESSION: Low probability of pulmonary embolism. Abdomen Ultrasound 01/29/25 08:39 IMPRESSION: Echogenic material in the dependent gallbladder, sludge or stones. Laboratory Results WBC 9.81 10^3/uL (3.29-11.43) 01/30/25 04:54 Corrected WBC Cancelled 01/28/25 03:31 RBC 4.08 10^6/uL (3.85-5.65) 01/30/25 04:54 Hgb 10.90 g/dL (11.27-16.99) L 01/30/25 04:54 Hct 36.2 % (36-47) 01/30/25 04:54 MCV 88.7 fl (85-98) 01/30/25 04:54 MCH 26.7 pg (27-33) L 01/30/25 04:54 MCHC 30.1 g/dL (30-55) 01/30/25 04:54 RDW 17.2 % (12.1-15.1) H 01/30/25 04:54 Plt Count 254 10^3/cmm (157-399) 01/30/25 04:54 MPV 10.1 fL (7.4-10.4) 01/30/25 04:54 Gran % Cancelled 01/28/25 03:31 Neut % (Auto) 67.1 % 01/30/25 04:54 Lymph % (Auto) 20.1 % 01/30/25 04:54 Wells % (Auto) 7.7 % 01/30/25 04:54 Eos % (Auto) 3.2 % 01/30/25 04:54 Baso % (Auto) 0.6 % 01/30/25 04:54 Neut # (Auto) 6.58 10^3/uL (1.8-7.7) 01/30/25 04:54 Lymph # (Auto) 2.0 10^3/uL (0.8-4.8) 01/30/25 04:54 Wells # (Auto) 0.8 10^3/uL (0.2-0.9) 01/30/25 04:54 Eos # (Auto) 0.3 10^3/uL (0.0-0.8) 01/30/25 04:54 Baso # (Auto) 0.1 10^3/uL (0.0-0.1) 01/30/25 04:54 Absolute Gran (auto) Cancelled 01/28/25 03:31 Nucleated RBC % (auto) 0 % 01/30/25 04:54 Nucleated RBCs # 0.0 /100WBC 01/30/25 04:54 D-Dimer 2.89 ug/mLFEU (0-0.59) H 01/25/25 15:54 Sodium 139 mmol/L (136-145) 01/30/25 04:54 Potassium 3.6 mmol/L (3.5-5.1) 01/30/25 04:54 Chloride 96 mmol/L (98-107) L 01/30/25 04:54 Carbon Dioxide 34 mmol/L (22-29) H 01/30/25 04:54 Anion Gap 12.6 (5-19) 01/30/25 04:54 BUN 24 mg/dL (8-23) H 01/30/25 04:54 Creatinine 1.3 mg/dL (0.5-0.9) H 01/30/25 04:54 GFR Calculation Not Reportable 01/30/25 04:54 Glucose 128 mg/dL (65-115) H 01/30/25 04:54 POC Glucose 131 mg/dL (70-110) H 01/29/25 11:30 Calculated Osmolality 294 mOsm/kg (285-295) 01/30/25 04:54 Calcium 9.2 mg/dL (8.5-10.5) 01/30/25 04:54 Phosphorus 2.8 mg/dL (2.5-4.5) 01/30/25 04:54 Magnesium 2.3 mg/dL (1.7-2.3) 01/30/25 04:54 Total Bilirubin 0.6 mg/dL (0.15-1.2) 01/30/25 04:54 GGT 56 U/L (5-36) H 01/29/25 02:18 AST 49 U/L (0-32) H 01/30/25 04:54 ALT 50 U/L (0-33) H 01/30/25 04:54 Alkaline Phosphatase 145 U/L (35-105) H 01/30/25 04:54 Troponin T Baseline 25 ng/L (0-10) H 01/25/25 15:54 Troponin T 120 Minute 24.13 ng/L (0-10) H 01/25/25 18:08 Delta Troponin T -0.87 ABS# (0-10) L 01/25/25 18:08 Troponin T Hi Sens 6Hr 23.18 ng/L (0-10) H 01/25/25 21:33 Troponin T Hi Sens 6Hr Delta -1.82 ng/L (0-12) L 01/25/25 21:33 C-Reactive Protein 85.1 mg/L (0.0-4.9) H 01/29/25 02:18 NT-Pro-B Natriuret Pep 3478 pg/mL (0-125) H 01/25/25 07:28 Total Protein 6.9 g/dL (6.6-8.7) 01/30/25 04:54 Albumin 3.3 g/dL (3.5-5.2) L 01/30/25 04:54 Globulin 3.6 g/dL (1.3-4.6) 01/30/25 04:54 Lipase 60 U/L (13-60) 01/29/25 02:18 Procalcitonin 1.61 ng/mL (0-0.5) H 01/29/25 02:18 TSH 1.28 uIU/mL (0.27-4.20) 01/25/25 15:54 Urine Color [place] (Yellow) A 01/25/25 08:55 Urine Appearance Turbid (CLEAR) A 01/25/25 08:55 Urine pH 5.5 (5-7) 01/25/25 08:55 Ur Specific [place] 1.020 (1.005-1.030) 01/25/25 08:55 Urine Protein 2+ (Negative) A 01/25/25 08:55 Urine Glucose (UA) Negative (Normal) 01/25/25 08:55 Urine Ketones Negative (Negative) 01/25/25 08:55 Urine Blood 3+ (Negative) A 01/25/25 08:55 Urine Nitrate Negative (Negative) 01/25/25 08:55 Urine Bilirubin Negative (Negative) 01/25/25 08:55 Urine Urobilinogen 1.0 mg/dL (Negative) 01/25/25 08:55 Ur Leukocyte Esterase 3+ (Negative) A 01/25/25 08:55 Urine RBC 6-10 /hpf (0-2) 01/25/25 08:55 Urine WBC >100 /hpf (0-5) H 01/25/25 08:55 Ur Squamous Epith Cells 6-10 /hpf (0-5) 01/25/25 08:55 Amorphous Sediment Not Reportable 01/25/25 08:55 Urine Bacteria 4+ /hpf (NONE) H 01/25/25 08:55 Hyaline Casts 42.83 /lpf 01/25/25 08:55 Fine Granular Casts 10-15 /lpf H 01/25/25 08:55 Vitals Last Vital Signs Temp 97.8 F 01/30/25 07:30 Pulse 18 L 01/30/25 07:30 Resp 20 H 01/30/25 07:30 BP 123/57 01/30/25 07:30 Pulse Ox 95 01/30/25 07:30 O2 Del Method Nasal Cannula 01/30/25 03:53 O2 Flow Rate 1 01/29/25 16:00 Discharge Plan Discharge Patient Disposition: Home Condition: Stable Prescriptions: New sulfamethoxazole-trimethoprim [Bactrim DS] 800-160 mg tablet 1 tab PO BID 4 Days Qty: 8 0RF Continued bisacodyl [Dulcolax (bisacodyl)] 10 mg suppository 10 mg [place] DAILY PRN (Reason: Constipation) PreserVision AREDS 4,296 mcg-226 mg-90 mg capsule 1 cap PO DAILY tramadol 25 mg tablet 25 mg PO QID PRN (Reason: pain) Qty: 15 0RF oxycodone-acetaminophen 5-325 mg tablet 1 tab PO Q8H PRN (Reason: Pain) Mounjaro 5 mg/0.5 mL pen injector 5 mg SUBCUT Q7D Rx Instructions: polyethylene glycol 3350 17 gram Powder In Packet 17 g PO BID PRN (Reason: Constipation) Qty: 14 0RF sennosides-docusate sodium [Stool Softener-Laxative] 8.6-50 mg Tablet 1 tab PO BID PRN (Reason: Constipation) Qty: 14 0RF magnesium hydroxide [Milk of Magnesia] 400 mg/5 mL Suspension 30 ml PO DAILY PRN (Reason: Constipation) Qty: 15 0RF cetirizine 10 mg tablet 10 mg PO DAILY docusate sodium 100 mg capsule 100 mg PO BID PRN (Reason: Constipation) atorvastatin 40 mg tablet 40 mg PO DAILY acetaminophen [Tylenol] 325 mg Tablet 650 mg PO QID PRN (Reason: Fever Or Pain) carvedilol 6.25 mg tablet 6.25 mg PO BID loperamide [Imodium A-D] 2 mg Tablet 2 mg PO DAILY PRN (Reason: Diarrhea) potassium chloride 20 mEq tablet,ER particles/crystals 20 meq PO DAILY omeprazole 20 mg capsule,delayed release(DR/EC) 20 mg PO DAILY Systane (propylene glycol) 0.4-0.3 % drops 1 drp ophthalmic (eye) TID escitalopram oxalate 5 mg tablet 5 mg PO DAILY baclofen 5 mg tablet 5 mg PO TID PRN (Reason: JOINT PAIN) furosemide [Lasix] 40 mg tablet 40 mg PO DAILY PRN (Reason: Edema) Qty: 1 0RF Rx Instructions: Dose change only ferrous sulfate 325 mg (65 mg iron) tablet 325 mg PO EVERY OTHER DAY Qty: 90 0RF Discharge Order = DC NOW: Discharge Order (Routine); Ordered 01/30/25 Ordered By: Edwin Padilla Referrals: [facility] [Outside] Pino Leroy MD [Physician, General Surgery] - 02/08/25 10:20 am Diana Cosme PA [Primary Care Provider, Physicians Vice President Payer] - 4-7 days Referral Note: Discharge Diet: Low Fat Discharge Activity: Resume usual activity Patient Instructions: Sulfamethoxazole/Trimethoprim (By mouth) (Bactrim, Bactrim DS,..., Heart Failure (DC), Urinary Tract Infection in Women (DC), Altered Mental Status (ED), CHF Stoplight, Opioid Safety, Patient Portal & [place] Instructions Activity Restrictions/Additional Instructions: - Please take antibiotics as prescribed - Please adhere to low-salt diet, follow-up with general surgery in 1 week - If any right upper quadrant abdominal pain go to the emergency room - Monitor LFTs as outpatient through primary care, -monitor fevers or chills or nausea or vomiting, if so go to to emergency room, Discharge Attestations Time Spent in Discharge Care*: greater than 30 min Status at Discharge: Cognitive status at discharge: cognitively intact , Behavioral status at discharge: cooperative and dependent in ADL's , Quality Metrics Clinical Quality Measures [ No reported AMI, CVA or VTE this stay] Coding Level of Care Code 21535 Total time (in minutes) for Discharge: 45 Diagnoses UTI (urinary tract infection) N39.0 Acute exacerbation of CHF (congestive heart failure) I50.9
--- NOTE | 2025-01-30 11:42 | PC.SOCIAL ---
IMM Update pg 2 of IMM updated and reviewed w/ patient. Copy provided and copy dated, initialed and placed in chart.
[2025-01-30 12:00] VITALS: BP 117/82; PULSE 73; RESP 21; O2SAT 96
[2025-01-30 12:48] VITALS: PULSE 75; O2SAT 97
--- NOTE | 2025-01-30 13:56 | PC.NURSE ---
yang removed iv removed patient educated upon dicharge report called to facility.
[2025-01-30 13:57] VITALS: BP 117/82; PULSE 75; RESP 18; TEMP 36.6; O2SAT 96
== END 2025-01-30 14:01 | disposition skilled nursing facility (03) | DRG 291 ==
LOC: ER 09:31 → CSU 11:36
PROVIDERS: Admitting Provider Internal Medicine; Emergency Provider Emergency Medicine; PCP Physician Assistant; Visit Provider Family Medicine
DX: I13.0 Hypertensive heart and chronic kidney disease with heart failure and stage 1 through stage 4 chronic kidney disease, or unspecified chronic kidney disease (principal); I50.31 Acute diastolic (congestive) heart failure; J96.01 Acute respiratory failure with hypoxia; N39.0 Urinary tract infection, site not specified; Z16.12 Extended spectrum beta lactamase (ESBL) resistance; D68.51 Activated protein C resistance; I69.951 Hemiplegia and hemiparesis following unspecified cerebrovascular disease affecting right dominant side; N17.9 Acute kidney failure, unspecified; N18.9 Chronic kidney disease, unspecified; B96.20 Unspecified Escherichia coli [E. coli] as the cause of diseases classified elsewhere; E78.5 Hyperlipidemia, unspecified; G35 Multiple sclerosis; F03.90 Unspecified dementia, unspecified severity, without behavioral disturbance, psychotic disturbance, mood disturbance, and anxiety; D63.1 Anemia in chronic kidney disease; K21.9 Gastro-esophageal reflux disease without esophagitis; N32.81 Overactive bladder; M24.541 Contracture, right hand; Z79.891 Long term (current) use of opiate analgesic; Z79.899 Other long term (current) drug therapy
CPT/HCPCS: 36415; 36416; 51702; 70450; 71045; 76705; 78014; 80053; 81001; 82962; 82977; 83690; 83735; 83880; 84100; 84145; 84443; 84484; 85025; 85378; 86140; 87077; 87086; 87186; 93005; 93308; 93971; 96372; 96374; 97110; 97162; 97165; 97530; 99285; A9540; A9567; J1650; J1938; J2185; J9999